=== PATIENT | female | born 1970 | race Caucasian/White ===

== ENCOUNTER 2020-09-01 15:26 | Emergency (ER) | payer MEDICARE, SELFPAY ==
--- NOTE | ~2020-09-01 | CT_ITS ---
EXAMINATION: CT abdomen pelvis wo con DATE: 09/01/2020 16:02 INDICATION: Left flank pain. TECHNIQUE: Computed tomography (CT) of the abdomen and pelvis was performed without intravenous contr ast. Automated exposure control and iterative reconstruction technique were employed. The dose-length product was 961.29 mGy-cm. COMPARISON: None FINDINGS: Tiny right pleural effusion. Heart size is normal. No pericardial effusion. Postoperative change of p rior cholecystectomy, gastric bypass procedure and ventral hernia mesh repair. Liver, spleen, pancrea s, right kidney and bilateral adrenal glands are normal. Couple 1-2 mm left renal stones. No stones i n the right kidney or along the bilateral ureters. No hydronephrosis. No bowel obstruction. Mobile ce cum now positioned to the left of the umbilical region with normal appendix. Bladder is normal. The u terus is not identified and has likely been surgically resected. Stable appearance of multiple phlebo liths in the pelvis. No free intraperitoneal gas or fluid. No pathologically enlarged abdominal or pe lvic lymphadenopathy. Moderate to severe lumbar spondylosis. IMPRESSION: 1. A couple tiny nonobstructing left renal stones. No evident ureteral stones or hydronephrosis. 2. Postoperative changes of prior cholecystectomy, gastric bypass, hysterectomy and ventral hernia me sh repair. 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 A couple tiny nonobstructing left renal stones. No evident ureteral stones o r hydronephrosis. 2. Postoperative changes of prior cholecystectomy, gastric bypass, hysterectomy and ventral hernia mesh repair.
[2020-09-01 15:30] VITALS: BP 128/85; PULSE 73; RESP 20; TEMP 36.4; O2SAT 99
--- NOTE | 2020-09-01 15:36 | ED.ABDPAIN ---
HPI - Abdominal Pain General Chief Complaint: Abdominal Pain Stated Complaint: L flank pain Time Seen by Provider: 09/01/20 15:30 Source: patient Mode of arrival: ambulatory Limitations: no limitations History of Present Illness HPI narrative: A 50-year-old female presents to the emergency department with complaints of left-sided flank pain. Patient states that she thinks she has another kidney stone. She does note a history of kidney stones and states that this feels similar. She does also note a strong smell, dark color and burning when she pees. She denies any fever or chills. Related Data Allergies Allergy/AdvReac Type Severity Reaction Status Date / Time esomeprazole Allergy Unknown Hives Verified 09/01/20 15:35 iodine Allergy Unknown Swelling Verified 09/01/20 15:35 of Lip/Tongue/Throat Contrast Media Allergy Unknown Swelling Uncoded 09/01/20 15:35 of Lip/Tongue/Throat Review of Systems Review of Systems: Narrative: CONSTITUTIONAL: Denies fever, chills, or sweats. EYES: Denies visual changes, redness, or discharge. ENT: Denies rhinorrhea, congestion, sore throat, or otalgia. CARDIOVASCULAR: Denies chest pain, palpitations, or edema. RESPIRATORY: Denies cough or dyspnea. GASTROINTESTINAL: Denies abdominal pain, nausea, vomiting, or diarrhea. GENITOURINARY: Denies dysuria or hematuria. Endorses flank pain. SKIN: Denies rash or itching. MUSCULOSKELETAL: Denies back pain, joint pain, or myalgia. NEUROLOGIC: Denies headache, numbness, dizziness, or weakness. PSYCHIATRIC: Denies anxiety or depression. [facility] Past Medical History Medical History Abnormal uterine bleeding Anxiety Arthritis Bulging disc L5-S1 DDD (degenerative disc disease) Depression Epilepsy Finger fracture Gallbladder disease History of blood transfusion History of tonsillitis Kidney stone Migraine Renal disease Sepsis due to urinary tract infection UTI (urinary tract infection) Ventral hernia With repair Surgical History Surgical History H/O lithotripsy H/O resection of small bowel H/O tubal ligation H/O: hysterectomy History of x4 History of cholecystectomy History of gastric bypass History of urethral stent Rt Hx of tonsillectomy Status post right foot surgery x2 Family History Family History Mother Hypertension Father Family history of chronic obstructive pulmonary disease, Onset Age: 71 Family history of diabetes mellitus in first degree relative Patient's father is Social History Social History Smoking status: Never smoker Alcohol intake: never Exam Narrative: Exam Narrative: GENERAL: Well-appearing, well-nourished, and in no acute distress. HEAD: Normocephalic, atraumatic. EYES: PERRLA and EOMI. ENT: Nares clear, no rhinorrhea or epistaxis. Mucous membranes moist. Oropharynx without tonsillar hypertrophy exudate or other lesions. Bilateral TMs pearly villalobos nonbulging NECK: Supple. No adenopathy or masses. No carotid bruits or JVD CHEST: Clear to auscultation. No respiratory distress. No wheezes rales or rhonchi HEART: Regular rate and rhythm. No murmur heard. Normal peripheral pulses. ABDOMEN: Soft, nontender, nondistended, normal active bowel sounds. Positive left-sided CVA tenderness EXTREMITIES: Normal range of motion. No edema. SKIN: Warm, dry, no rash. NEURO: No focal deficits. Alert and oriented x3. PSYCH: Normal mood and affect. Course Reevaluation(s) Reevaluation #1: Patient sitting in the room. Informed her of her negative CT scan but urine does show blood and possibility of recent stones. We will go ahead and give her another round of pain medicine as she states that the meds she got are not helping. Suspect the patient may be ana paula
[2020-09-01] MEDS: oxyCODONE/ACETAMINOPHEN (*CRX) 5-325 MG TABLET 1 TABLET PO (15:44)
[2020-09-01] MEDS: KETOROLAC 15 MG/ML VIAL (*BKC) IV PUSH (15:56)
[2020-09-01 15:59] LABS: Basophils Percent Auto 0.6 % (0.2-1.2); Eosinophils Absolute Auto 0.3 K/mm3 (0-0.3); Eosinophils Percent Auto 4.2 % (0-4.4); Hematocrit 35.7 % (37.0-47.0); Hemoglobin 11.2 g/dL (12.0-15.0); Immature Granulocyte Absolute 0.01 K/mm3 (0.00-0.031); Immature Granulocyte Percent A 0.2 % (0-0.5); Lymphocytes Absolute Auto 2.24 K/mm3 (0.9-3.2); Lymphocytes Percent Auto 35.2 % (18.3-44.2); Mean Corpuscular HGB Conc 31.4 g/dl (32-36); Mean Corpuscular Hemoglobin 25.5 pg (26-34); Mean Corpuscular Volume 81.3 fl (80-100); Mean Platelet Volume 10.6 fl (7.4-10.4); Monocytes Absolute Auto 0.6 K/mm3 (0.1-0.6); Monocytes Percent Auto 9.1 % (2.6-8.5); Neutrophils Absolute Auto 3.2 K/mm3 (1.3-6.7); Neutrophils Percent Auto 50.7 % (45.5-73.1); Platelet Count Result 248 k/mm3 (150-375); Red Blood Count 4.39 M/mm3 (4.2-5.4); Red Cell Distribution Width 15.3 % (11.5-14.5); White Blood Count 6.4 K/mm3 (4.5-10.0)
[2020-09-01 16:11] LABS: Anion Gap 4 mmol/L (8-16); Blood Urea Nitrogen 15 mg/dL (7-17); Calcium 8.6 mg/dL (8.4-10.2); Carbon Dioxide 25 mmol/L (22-30); Chloride 109 mmol/L (98-107); Estimated CRCL calculation 75 ml/min; Estimated Glomerular Filt Rate > 60; Glucose 72 mg/dL (65-105); Potassium 4.5 mmol/L (3.4-5.0); Sodium 138 mmol/L (137-145)
[2020-09-01 16:24] LABS: Add Urine Microscopic? YES; Appearance Urine Cloudy (Clear); Bacteria Urine Trace /hpf; Bilirubin Urine Negative (Negative); Blood Urine 3+ (Negative); Color Urine Yellow (Yellow); Glucose Urine UA Negative (Negative); Ketones Urine Negative (Negative); Leukocyte Esterase Ur Trace LEU/UL (Negative); Mucus Urine Rare /lpf; Nitrate Urine Negative (Negative); Protein Urine Negative (Negative); RBC Urine >75 /hpf (0-2); Specific Grav Ur 1.015 (1.001-1.035); Squamous Epithelial Cell Urine Few /hpf (Few); Urobilinogen Urine Negative mg/dL (<2.0)
[2020-09-01] MEDS: MORPHINE SULFATE (*CRX) 4 MG/ML INJ IV PUSH (17:31)
== END 2020-09-01 17:45 | disposition home or self-care (01) ==
PROVIDERS: Emergency Medicine; Emergency Provider Emergency Medicine; PCP Internal Medicine
DX: N20.0 Calculus of kidney (principal); Z87.442 Personal history of urinary calculi; G40.909 Epilepsy, unspecified, not intractable, without status epilepticus; Z87.440 Personal history of urinary (tract) infections; N28.9 Disorder of kidney and ureter, unspecified; Z98.84 Bariatric surgery status
CPT/HCPCS: 36415; 74176; 80048; 81001; 85025; 87077; 87086; 87088; 87186; 96374; 96375; 99284; A9270; J1885; J2270

== ENCOUNTER 2020-09-13 15:51 | Emergency (ER) | payer MEDICARE, SELFPAY ==
[2020-09-13 16:26] VITALS: BP 112/69; PULSE 112; RESP 18; TEMP 36.6; O2SAT 97
[2020-09-13 17:41] VITALS: BP 113/73; PULSE 70; RESP 20; TEMP 36.3; O2SAT 99
[2020-09-13 18:32] LABS: Add Urine Microscopic? YES; Appearance Urine Cloudy (Clear); Bacteria Urine 4+ /hpf; Bilirubin Urine Negative (Negative); Blood Urine 2+ (Negative); Color Urine Yellow (Yellow); Glucose Urine UA Negative (Negative); Ketones Urine Negative (Negative); Leukocyte Esterase Ur 2+ LEU/UL (Negative); Mucus Urine Rare /lpf; Nitrate Urine Positive (Negative); Protein Urine 1+ mg/dL (Negative); RBC Urine >75 /hpf (0-2); Specific Grav Ur 1.019 (1.001-1.035); Squamous Epithelial Cell Urine Many /hpf (Few); Urobilinogen Urine Negative mg/dL (<2.0); WBC Urine 31-50 /hpf
--- NOTE | 2020-09-13 18:34 | ED.ABDPAIN ---
HPI - Abdominal Pain General Chief Complaint: Abdominal Pain Stated Complaint: ongoing kidney issues, possible stone Time Seen by Provider: 09/13/20 18:09 Source: patient Mode of arrival: ambulatory Limitations: no limitations History of Present Illness HPI narrative: 50-year-old female History of kidney stones Complains of of a 3 or 4-day history of pain in her left flank and radiating around to her lower abdomen on the left side as well as a dark and malodorous urine No fever, she has nausea but no vomiting and no diarrhea She was here for roughly the same thing about a week and a half ago At that time CT was done and showed a couple of small calculi in the left kidney but nothing in the ureters that are to be symptomatic Urine was abnormal and ultimately grew Klebsiella that was pretty much pansensitive Patient indicates that she took all but 2 or 3 of her antibiotics however it looks like it was only prescribed for 3 days She was supposed to follow-up with urology but due to a series of was family calamities was unable to do so On review it looks like she has had several visits for similar issues over the last few years and none of her CTs have demonstrated a ureteral stone However she does say that she had previously had a number of lithotripsies done by urology here elicited complaint: abdominal pain and flank pain Related Data Allergies Allergy/AdvReac Type Severity Reaction Status Date / Time esomeprazole Allergy Unknown Hives Verified 09/13/20 16:31 iodine Allergy Unknown Swelling Verified 09/13/20 16:31 of Lip/Tongue/Throat ketorolac [From Toradol] Allergy Hives Verified 09/13/20 16:31 Contrast Media Allergy Unknown Swelling Uncoded 09/13/20 16:31 of Lip/Tongue/Throat Review of Systems Review of Systems: All systems reviewed & are unremarkable except as noted in HPI and below Constitutional: Constitutional: Denies chills, Denies fatigue, Denies fever(s), Denies headache(s) and Reports weakness Eyes: Eyes: Reports no additional eye complaints and Denies change in vision ENT: Denies headache(s), Denies epistaxis, Denies nasal congestion and Denies sore throat Cardiovascular: Cardiovascular: Denies chest pain, Denies leg edema, Denies palpitations and Denies dyspnea Respiratory: Respiratory: Denies cough, Denies dyspnea and Denies wheezing Gastrointestinal: Gastrointestinal: Reports abdominal pain, Denies diarrhea, Reports nausea and Denies vomiting Genitourinary: Genitourinary: Denies hematuria, Denies urinary frequency, Reports nocturia, Reports dysuria and Reports flank pain Musculoskeletal: Musculoskeletal: Denies deformity, Denies arthralgias, Denies joint swelling, Denies muscle weakness and Denies numbness Integumentary/Breasts: Skin/Breast: Denies rash and Denies wounds Neurologic: Denies headache(s), Denies focal weakness, Denies numbness and Denies weakness Psychiatric: Psychiatric: Reports no additional psychiatric complaints Endocrine: Endocrine: Denies fatigue and Denies palpitations Hematologic/Lymphatic: Hematologic/Lymphatic: Denies easy bleeding and Denies easy bruising Allergic/Immunologic: Allergic/Immunologic: Denies wheezing PMFSH Past Medical History Medical History Abnormal uterine bleeding Anxiety Arthritis Bulging disc L5-S1 DDD (degenerative disc disease) Depression Epilepsy Finger fracture Gallbladder disease History of blood transfusion History of tonsillitis Kidney stone Migraine Renal disease Sepsis due to urinary tract infection UTI (urinary tract infection) Ventral hernia With repair Surgical History Surgical History H/O lithotripsy H/O resection of small bowel H/O tubal ligation H/O: hysterectomy History of x4 History of cholecystectomy History of gastric bypass History of urethral stent R
[2020-09-13 18:57] LABS: Basophils Absolute Auto 0.1 K/mm3 (0.0-0.1); Basophils Percent Auto 0.7 % (0.2-1.2); Eosinophils Absolute Auto 0.2 K/mm3 (0-0.3); Eosinophils Percent Auto 2.9 % (0-4.4); Hematocrit 37.9 % (37.0-47.0); Hemoglobin 11.7 g/dL (12.0-15.0); Immature Granulocyte Absolute 0.03 K/mm3 (0.00-0.031); Immature Granulocyte Percent A 0.4 % (0-0.5); Lymphocytes Absolute Auto 2.47 K/mm3 (0.9-3.2); Lymphocytes Percent Auto 29.3 % (18.3-44.2); Mean Corpuscular HGB Conc 30.9 g/dl (32-36); Mean Corpuscular Hemoglobin 25.3 pg (26-34); Mean Platelet Volume 10.5 fl (7.4-10.4); Monocytes Absolute Auto 0.7 K/mm3 (0.1-0.6); Monocytes Percent Auto 8.8 % (2.6-8.5); Neutrophils Absolute Auto 4.9 K/mm3 (1.3-6.7); Neutrophils Percent Auto 57.9 % (45.5-73.1); Platelet Count Result 248 k/mm3 (150-375); Red Blood Count 4.62 M/mm3 (4.2-5.4); Red Cell Distribution Width 15.4 % (11.5-14.5); White Blood Count 8.4 K/mm3 (4.5-10.0)
[2020-09-13 19:22] VITALS: BP 112/85; PULSE 70; RESP 16; O2SAT 100
[2020-09-13] MEDS: ONDANSETRON INJ 4 MG/2 ML VIAL IV PUSH (19:30)
[2020-09-13] MEDS: ACETAMINOPHEN 500 MG TABLET 1000 MG PO (19:30)
[2020-09-13] MEDS: DICYCLOMINE HCL INJ 20 MG/2 ML VIAL IM (19:30)
[2020-09-13 19:32] LABS: Alanine Aminotransferase 30 U/L (4-35); Alkaline Phosphatase 103 U/L (38-126); Aspartate Amino Transferase 29 U/L (14-36); Bilirubin,Total 0.3 mg/dL (0.2-1.3); Calcium 8.5 mg/dL (8.4-10.2); Glucose 84 mg/dL (65-105); Lipase 42 U/L (23-300)
[2020-09-13 19:57] LABS: Albumin Level 3.6 g/dL (3.5-5.1); Anion Gap 2 mmol/L (8-16); Blood Urea Nitrogen 13 mg/dL (7-17); Carbon Dioxide 26 mmol/L (22-30); Chloride 108 mmol/L (98-107); Estimated CRCL calculation 66 ml/min; Estimated Glomerular Filt Rate > 60; Potassium 4.6 mmol/L (3.4-5.0); Sodium 136 mmol/L (137-145)
[2020-09-13 20:00] VITALS: TEMP 36.3
[2020-09-13] MEDS: CIPROFLOXACIN 400 MG/D5W 200ML 200 ML 200 MG IVPB (20:27)
[2020-09-13 20:47] VITALS: BP 132/88; PULSE 70; RESP 16; O2SAT 99
--- NOTE | 2020-09-13 21:03 | PC.NURSE ---
Patient placed on bus driver/monitor.
[2020-09-13 22:22] VITALS: BP 115/76; PULSE 67; RESP 12; O2SAT 97
[2020-09-13] MEDS: HYDROcodone/acetaminophen (*CRX) 5-325 MG TABLET 1 TAB PO (23:20)
== END 2020-09-13 23:29 | disposition home or self-care (01) ==
PROVIDERS: Emergency Provider Emergency Medicine; PCP Internal Medicine
DX: N39.0 Urinary tract infection, site not specified (principal); M19.90 Unspecified osteoarthritis, unspecified site; Z87.442 Personal history of urinary calculi; N28.9 Disorder of kidney and ureter, unspecified; G40.909 Epilepsy, unspecified, not intractable, without status epilepticus; Z98.84 Bariatric surgery status
CPT/HCPCS: 36415; 80053; 81001; 83690; 85025; 87077; 87086; 87088; 87186; 96365; 96372; 96375; 99284; A9270; J0500; J0744; J2001; J2405

== ENCOUNTER 2021-07-12 16:54 | Emergency (ER) | payer MEDICARE, SELFPAY ==
--- NOTE | ~2021-07-12 | CT_ITS ---
EXAMINATION: CT abdomen pelvis wo con DATE: 07/12/2021 18:17 INDICATION: Right lower quadrant abdomen pain. Evaluate for appendicitis. TECHNIQUE: Computed tomography (CT) of the abdomen and pelvis was performed without intravenous contr ast. The dose-length product was 1016.29 mGy-cm. Automated exposure control and iterative reconstruct ion technique were employed. COMPARISON: CT dated 09/01/2020. FINDINGS: Lung bases are unremarkable. Heart size normal. No significant vascular abnormality. There are extensive surgical changes of the stomach, and anastomosis of the right mid abdomen, ventral josseline ia repair and cholecystectomy. The appendix is not positively visualized. There is no pericecal infl ammatory change to suggest appendicitis. Nonobstructive bowel gas pattern. There are punctate nonobstructing bilateral renal stones at the lower poles. No definite ureteral sto rome or hydronephrosis. The liver, spleen, pancreas, adrenal glands are unremarkable. Nonobstructive bowel gas pattern. Moder ate lumbar spondylosis. IMPRESSION: 1. Nonobstructing bilateral nephrolithiasis. 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
[2021-07-12 16:58] VITALS: BP 119/91; PULSE 113; RESP 16; TEMP 36.9; O2SAT 95
[2021-07-12 17:19] LABS: Basophils Absolute Auto 0.1 K/mm3 (0.0-0.1); Eosinophils Absolute Auto 0.1 K/mm3 (0-0.3); Hemoglobin 12.1 g/dL (12.0-15.0); Immature Granulocyte Absolute 0.04 K/mm3 (0.00-0.031); Immature Granulocyte Percent A 0.4 % (0-0.5); Lymphocytes Absolute Auto 2.64 K/mm3 (0.9-3.2); Lymphocytes Percent Auto 26.5 % (18.3-44.2); Mean Corpuscular HGB Conc 30.3 g/dl (32-36); Mean Corpuscular Hemoglobin 24.2 pg (26-34); Mean Platelet Volume 9.8 fl (7.4-10.4); Monocytes Absolute Auto 0.8 K/mm3 (0.1-0.6); Monocytes Percent Auto 7.5 % (2.6-8.5); Neutrophils Absolute Auto 6.3 K/mm3 (1.3-6.7); Neutrophils Percent Auto 63.6 % (45.5-73.1); Platelet Count Result 308 k/mm3 (150-375); Red Cell Distribution Width 15.4 % (11.5-14.5)
[2021-07-12 17:24] LABS: Add Urine Microscopic? YES; Appearance Urine Cloudy (Clear); Bilirubin Urine Negative (Negative); Blood Urine Negative (Negative); Color Urine Yellow (Yellow); Glucose Urine UA Negative (Negative); Ketones Urine Negative (Negative); Leukocyte Esterase Ur Negative LEU/UL (Negative); Mucus Urine Few /lpf; Nitrate Urine Negative (Negative); Protein Urine Negative (Negative); RBC Urine 0-2 /hpf (0-2); Specific Grav Ur 1.021 (1.001-1.035); Squamous Epithelial Cell Urine Many /hpf (Few)
[2021-07-12 17:45] LABS: Alanine Aminotransferase 21 U/L (4-35); Albumin Level 3.9 g/dL (3.5-5.1); Alkaline Phosphatase 131 U/L (38-126); Anion Gap 9 mmol/L (8-16); Aspartate Amino Transferase 25 U/L (14-36); Bilirubin,Total 0.4 mg/dL (0.2-1.3); Blood Urea Nitrogen 14 mg/dL (7-17); Calcium 8.7 mg/dL (8.4-10.2); Carbon Dioxide 21 mmol/L (22-30); Chloride 110 mmol/L (98-107); Estimated CRCL calculation 79 ml/min; Estimated Glomerular Filt Rate > 60; Glucose 112 mg/dL (65-110); Potassium 3.9 mmol/L (3.4-5.0); Sodium 140 mmol/L (137-145)
--- NOTE | 2021-07-12 19:12 | PC.NURSE ---
Per previous RN, patient is tough stick and IV access was attempted multiple times by more than one RN. Patient still c/o pain. ERP notified of patient being tough stick and no IV access at this time.ERP went to speak with patient. Report received from BRANDON Varghese. I assumed care of patient at this time.
[2021-07-12] MEDS: MORPHINE SULFATE INJ (*CRX) 10 MG/ML AMP IM (19:18)
[2021-07-12] MEDS: ONDANSETRON HCL ODT 4 MG TABLET PO ×2 (19:18→20:49)
[2021-07-12 19:20] VITALS: BP 122/75; PULSE 82; RESP 17; O2SAT 99
--- NOTE | 2021-07-12 19:36 | ED.FEMALEGU ---
HPI - Female Genitourinary General Chief complaint: Urogenital-Female Stated complaint: dysuria, right flank pain Time Seen by Provider: 07/12/21 17:52 Source: patient History of Present Illness HPI Narrative: Patient presents with right-sided flank pain. Reports a history of multiple ureteral stones pain is usually on the left however this episode is on the right. Reports her pain is similar but slightly different than her prior stones and this pain starts in her right lower quadrant and radiates up into her back. Pain is sharp, constant, no clear aggravating or alleviating factors again radiates to her back. Reports dark-colored urine as well as well as nausea and vomiting. She denies any fevers or diarrhea. Related Data Home Medications Medication Instructions Recorded Confirmed fluoxetine 20 mg tablet 20 mg PO DAILY 11/21/20 11/21/20 hydroxyzine pamoate 50 mg capsule 50 mg PO TID 11/21/20 11/21/20 levetiracetam 1,000 mg tablet 1,000 mg PO Q12H 11/21/20 11/21/20 oxybutynin chloride 5 mg tablet 5 mg PO TID 11/21/20 11/21/20 prazosin 5 mg capsule 5 mg PO QPM 11/21/20 11/21/20 quetiapine 100 mg tablet 100 mg PO BID 11/21/20 11/21/20 tizanidine 4 mg capsule 4 mg PO QHS 11/21/20 11/21/20 trazodone 150 mg tablet 150 mg PO .bedtime PRN tablet 11/21/20 11/21/20 Allergies Allergy/AdvReac Type Severity Reaction Status Date / Time esomeprazole Allergy Unknown Hives Verified 11/21/20 13:39 iodine Allergy Unknown Swelling Verified 11/21/20 13:31 of Lip/Tongue/Throat ketorolac [From Toradol] Allergy Hives Verified 11/21/20 13:39 Contrast Media Allergy Unknown Swelling Uncoded 11/21/20 13:39 of Lip/Tongue/Throat Review of Systems Review of Systems: CONSTITUTIONAL: Denies fever, chills, or sweats. EYES: Denies visual changes, redness, or discharge. ENT: Denies rhinorrhea, congestion, sore throat, or otalgia. CARDIOVASCULAR: Denies chest pain, palpitations, or edema. RESPIRATORY: Denies cough or dyspnea. GASTROINTESTINAL: Reports abdominal pain nausea and vomiting GENITOURINARY: Denies dysuria or hematuria. SKIN: Denies rash or itching. MUSCULOSKELETAL: Denies joint pain, or myalgia. NEUROLOGIC: Denies headache, numbness, dizziness, or weakness. PSYCHIATRIC: Denies anxiety or depression. All systems reviewed & are unremarkable except as noted in HPI and below PMFSH Past Medical History Medical History Abnormal uterine bleeding Anxiety Arthritis Bulging disc L5-S1 DDD (degenerative disc disease) Depression Epilepsy Finger fracture Gallbladder disease History of blood transfusion History of tonsillitis Kidney stone Migraine Renal disease Sepsis due to urinary tract infection UTI (urinary tract infection) Ventral hernia With repair Surgical History Surgical History H/O lithotripsy H/O resection of small bowel H/O tubal ligation H/O: hysterectomy History of x4 History of cholecystectomy History of gastric bypass History of urethral stent Rt Hx of tonsillectomy Status post right foot surgery x2 Family History Family History Mother Hypertension Father Family history of chronic obstructive pulmonary disease, Onset Age: 71 Family history of diabetes mellitus in first degree relative Patient's father is Social History Social History Smoking status: Never smoker Alcohol intake: never Gender identity (if verbalized by the patient): Female Exam Narrative: GENERAL: Well-appearing, well-nourished, and in no acute distress. HEAD: Normocephalic, atraumatic. EYES: PERRLA and EOMI. ENT: Nares clear, no rhinorrhea or epistaxis. Mucous membranes moist. NECK: Supple. No masses. No JVD CHEST: Clear to auscultation. No respiratory dist
[2021-07-12] MEDS: MAG HYDROX/AL HYDROX/SIMETH 30 ML UDC PO (20:50)
[2021-07-12] MEDS: LIDOCAINE HCL 2% VISC SOLN 15 ML UDC 20 ML PO (20:50)
[2021-07-12 20:51] LABS: Lipase 60 U/L (23-300)
== END 2021-07-12 21:18 | disposition home or self-care (01) ==
PROVIDERS: Emergency Provider Emergency Medicine; PCP Internal Medicine
DX: K29.70 Gastritis, unspecified, without bleeding (principal); G40.909 Epilepsy, unspecified, not intractable, without status epilepticus; F32.A Depression, unspecified; F41.9 Anxiety disorder, unspecified; N28.9 Disorder of kidney and ureter, unspecified; M19.90 Unspecified osteoarthritis, unspecified site; Z87.442 Personal history of urinary calculi; Z87.440 Personal history of urinary (tract) infections; Z98.84 Bariatric surgery status; N20.0 Calculus of kidney
CPT/HCPCS: 36415; 74176; 80053; 81001; 83690; 85025; 96372; 99284; A9270; J2270

== ENCOUNTER 2022-03-22 09:27 | Emergency (ER) | payer MEDICARE, SELFPAY ==
--- NOTE | ~2022-03-22 | US_ITS ---
EXAMINATION: US pelvic complete w TV DATE: 03/22/2022 15:19 INDICATION: LLQ, L lower back pain, CT negative TECHNIQUE: Multiple transabdominal and endovaginal sonographic images of the pelvis were obtained. COMPARISON: CT abdomen and pelvis, same date. FINDINGS: Exam limited by bowel gas. Uterus: Status post hysterectomy. Right Ovary: Not visualized. Left Ovary: 2 x 0.8 x 0.6 cm. Vascular flow is present. There is no free fluid in the pelvis. IMPRESSION: Limited examination. Right ovary not visualized. Sonographically normal left ovary. Reviewed, dictated and finalized at location K. IMPRESSION: Limited examination. Right ovary not visualized. Sonographically normal left ov loree.
--- NOTE | ~2022-03-22 | CT_ITS ---
EXAMINATION: CT abdomen pelvis wo con DATE: 03/22/2022 11:06 INDICATION: Left flank pain, hematuria. History kidney stones TECHNIQUE: Computed tomography (CT) of the abdomen and pelvis was performed without intravenous contr ast. Automated exposure control and iterative reconstruction technique were employed. Exam dose: 677 .57 mGy-cm total exam DLP. COMPARISON: 07/12/2021 CT abdomen pelvis FINDINGS: The lung bases are clear of infiltrate or consolidation. Normal heart size. No pericardial or pleural effusion. Status post cholecystectomy. Status post gastric bypass surgery. No hepatic, splenic, pancreatic, and adrenal or renal space-occupying mass lesion is detected. There is a pinpoint nonobstructing calculus of the lower pole of each kidney. No ureteral calculus or hydroureteronephrosis. The urinary bladder is largely evacuated and not optimally evaluated. Status post hysterectomy. There is normal caliber and mild atherosclerotic calcification of the abdominal aorta. No intraperito lety or retroperitoneal or pelvic mass lesion or adenopathy or ascites is detected. Normal appendix. No bowel obstruction or intraperitoneal free air. Status post ventral abdominal wall hernia repair. Moderately severe degenerative disc disease L3-4 and L4-5, moderate degenerative disease at L5-S1. No suspicious osteolytic or osteoblastic lesions are noted. IMPRESSION: Pinpoint obstructing lower pole calculus of each kidney No ureteral calculus or hydroure teronephrosis is detected Status post cholecystectomy Status post gastric bypass surgery Status post hysterectomy Status post ventral abdominal wall hernia repair Reviewed, dictated and finalized at Location [facility]. 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 IMPRESSION: Pinpoint obstructing lower pole calculus of each kidney No uretera l calculus or hydroureteronephrosis is detected Status post cholecystectomy Status post gastric bypass surgery Status post hysterectomy Status post ventral abdominal wall hernia repair
[2022-03-22 09:29] VITALS: BP 185/104; PULSE 111; RESP 14; TEMP 36.8; O2SAT 99
[2022-03-22 10:33] LABS: Basophils Absolute Auto 0.1 K/mm3 (0.0-0.1); Basophils Percent Auto 0.8 % (0.2-1.2); Eosinophils Absolute Auto 0.1 K/mm3 (0-0.3); Eosinophils Percent Auto 0.6 % (0-4.4); Hematocrit 39.7 % (37.0-47.0); Hemoglobin 11.8 g/dL (12.0-15.0); Immature Granulocyte Absolute 0.04 K/mm3 (0.00-0.031); Immature Granulocyte Percent A 0.4 % (0-0.5); Mean Corpuscular HGB Conc 29.7 g/dl (32-36); Mean Corpuscular Hemoglobin 22.3 pg (26-34); Mean Platelet Volume 9.7 fl (7.4-10.4); Monocytes Percent Auto 9.6 % (2.6-8.5); Neutrophils Absolute Auto 5.9 K/mm3 (1.3-6.7); Neutrophils Percent Auto 55.6 % (45.5-73.1); Platelet Count Result 355 k/mm3 (150-375); Red Blood Count 5.29 M/mm3 (4.2-5.4); White Blood Count 10.6 K/mm3 (4.5-10.0)
--- NOTE | 2022-03-22 10:36 | ED.BACK ---
HPI - Back Pain/Injury General Chief Complaint: Back Pain/Injury Stated Complaint: kidney stone Time Seen by Provider: 03/22/22 10:11 Source: patient Mode of arrival: ambulatory Limitations: no limitations History of Present Illness HPI Narrative: Patient is a 51-year-old female who presents to the ED with report of left flank pain. Patient reports having intermittent pain in her left flank region for the past 2 weeks. She has a long history of kidney stones and several lithotripsies in the past. States pain feels similar. This morning around 2 AM, pain woke her from her sleep. Constant in left flank region and began radiating around to left lower abdomen. Also reports nausea, vomiting, oliguria. No dysuria or hematuria. No fever. No diarrhea, constipation. Patient took Aleve around 230 am this morning. Related Data Home Medications Medication Instructions Recorded Confirmed fluoxetine 20 mg tablet 20 mg PO DAILY 11/21/20 11/21/20 hydroxyzine pamoate 50 mg capsule 50 mg PO TID 11/21/20 11/21/20 levetiracetam 1,000 mg tablet 1,000 mg PO Q12H 11/21/20 11/21/20 oxybutynin chloride 5 mg tablet 5 mg PO TID 11/21/20 11/21/20 prazosin 5 mg capsule 5 mg PO QPM 11/21/20 11/21/20 quetiapine 100 mg tablet 100 mg PO BID 11/21/20 11/21/20 tizanidine 4 mg capsule 4 mg PO QHS 11/21/20 11/21/20 trazodone 150 mg tablet 150 mg PO .bedtime PRN 11/21/20 11/21/20 Allergies Allergy/AdvReac Type Severity Reaction Status Date / Time esomeprazole Allergy Unknown Hives Verified 11/21/20 13:39 iodine Allergy Unknown Swelling Verified 11/21/20 13:31 of Lip/Tongue/Throat ketorolac [From Toradol] Allergy Hives Verified 11/21/20 13:39 Contrast Media Allergy Unknown Swelling Uncoded 11/21/20 13:39 of Lip/Tongue/Throat Review of Systems Review of Systems: CONSTITUTIONAL: Denies fever, chills, or sweats. CARDIOVASCULAR: Denies chest pain. RESPIRATORY: Denies dyspnea. GASTROINTESTINAL: Reports LLQ pain, N/V. Denies constipation or diarrhea. GENITOURINARY: Reports oliguria. Denies dysuria or hematuria. MUSCULOSKELETAL: Reports L flank pain. All systems reviewed & are unremarkable except as noted in HPI and below PMFSH Past Medical History Medical History Abnormal uterine bleeding Anxiety Arthritis Bulging disc L5-S1 DDD (degenerative disc disease) Depression Epilepsy Finger fracture Gallbladder disease History of blood transfusion History of tonsillitis Kidney stone Migraine Renal disease Sepsis due to urinary tract infection UTI (urinary tract infection) Ventral hernia With repair Surgical History Surgical History H/O lithotripsy H/O resection of small bowel H/O tubal ligation H/O: hysterectomy History of x4 History of cholecystectomy History of gastric bypass History of urethral stent Rt Hx of tonsillectomy Status post right foot surgery x2 Family History Family History Mother Hypertension Father Family history of chronic obstructive pulmonary disease, Onset Age: 71 Family history of diabetes mellitus in first degree relative Patient's father is Social History Social History Smoking status: Never smoker Alcohol intake: never Gender identity (if verbalized by the patient): Female Exam Narrative: GENERAL: Well appearing, obese, non-toxic, in mild acute distress. HEAD: Normocephalic, atraumatic. NECK: Supple. No adenopathy, no masses. RESPIRATORY: Airway patent, respirations nonlabored. Clear to auscultation bilaterally, no rales, rhonchi, wheezing. CARDIOVASCULAR: Tachycardic with regular rhythm without murmurs, rubs, or gallops. Peripheral pulses 2+ and equal bilaterally. ABDOMINAL: Soft, mild left-sided abdominal tenderness to palpati
[2022-03-22 10:38] LABS: Appearance Urine Clear (Clear); Bilirubin Urine 1+ (Negative); Blood Urine Negative (Negative); Color Urine Yellow (Yellow); Glucose Urine UA Negative (Negative); Ketones Urine Trace mg/dL (Negative); Leukocyte Esterase Ur Negative LEU/UL (Negative); Nitrate Urine Negative (Negative); Protein Urine Negative (Negative); Specific Grav Ur 1.025 (1.001-1.035)
[2022-03-22] MEDS: SODIUM CHLORIDE 0.9% IV 1,000 ML 999 ML IV CONT (10:42)
[2022-03-22] MEDS: MORPHINE SULFATE (*CRX) 4 MG/ML INJ IV PUSH (10:42)
[2022-03-22] MEDS: ONDANSETRON INJ 4 MG/2 ML VIAL IV PUSH (10:43)
[2022-03-22 10:44] LABS: Platelet Estimate Adequate (Adequate)
[2022-03-22 10:45] LABS: Alanine Aminotransferase 18 U/L (6-35); Albumin Level 4.4 g/dL (3.5-5.1); Alkaline Phosphatase 139 U/L (38-126); Anion Gap 11 mmol/L (8-16); Anisocytosis 1+ (NORMAL); Aspartate Amino Transferase 29 U/L (14-36); Bilirubin,Total 0.7 mg/dL (0.2-1.3); Blood Urea Nitrogen 9 mg/dL (7-17); Calcium 9.4 mg/dL (8.4-10.2); Carbon Dioxide 21 mmol/L (22-30); Chloride 107 mmol/L (98-107); Estimated CRCL calculation 86 ml/min; Estimated Glomerular Filt Rate > 60; Glucose 106 mg/dL (65-110); Lipase 82 U/L (23-300); Ovalocytes 1+ (NORMAL); Poikilocytosis 1+ (NORMAL); Potassium 4.2 mmol/L (3.4-5.0); Sodium 139 mmol/L (137-145)
[2022-03-22 10:47] LABS: Add Urine Microscopic? YES; Mucus Urine Rare /lpf; RBC Urine 0-2 /hpf (0-2); Squamous Epithelial Cell Urine Moderate /hpf (Few); WBC Urine 0-3 /hpf
[2022-03-22] MEDS: diphenhydrAMINE HCl INJ 50 MG/ML VIAL 25 MG IV PUSH (10:51)
[2022-03-22] MEDS: HYDROmorphone HCL INJ (*CRX) 1 MG/ML SYR 0.5 MG IV PUSH (13:07)
[2022-03-22 13:53] VITALS: BP 170/114; PULSE 80; RESP 16; O2SAT 100
[2022-03-22] MEDS: LORazepam INJ (*CRX) 2 MG/ML VIAL 0.5 MG IV PUSH (16:20)
[2022-03-22] MEDS: HYDROcodone/acetaminophen (*CRX) 5-325 MG TABLET 1 TAB PO (17:11)
== END 2022-03-22 17:15 | disposition home or self-care (01) ==
PROVIDERS: Physician Assistant; Emergency Provider Emergency Medicine; PCP Internal Medicine
DX: R10.32 Left lower quadrant pain (principal); G40.909 Epilepsy, unspecified, not intractable, without status epilepticus; N28.9 Disorder of kidney and ureter, unspecified; Z87.442 Personal history of urinary calculi; F41.9 Anxiety disorder, unspecified; F32.A Depression, unspecified; Z87.440 Personal history of urinary (tract) infections; Z98.84 Bariatric surgery status; Z90.710 Acquired absence of both cervix and uterus; N20.0 Calculus of kidney
CPT/HCPCS: 36415; 74176; 76830; 76856; 80053; 81001; 83690; 85025; 96361; 96374; 96375; 99284; A9270; J0131; J1170; J1200; J2060; J2270; J2405; J7030

== ENCOUNTER 2022-07-12 11:10 | Inpatient (IN) | payer MEDICARE, SELFPAY ==
--- NOTE | ~2022-07-12 | CT_ITS ---
EXAMINATION: CT abdomen pelvis wo con DATE: 07/14/2022 13:55 INDICATION: Periumbilical abdominal pain TECHNIQUE: Computed tomography (CT) of the abdomen and pelvis was performed without intravenous contr ast. Automated exposure control and iterative reconstruction technique were employed. Exam dose: 638 .80 mGy-cm total exam DLP. COMPARISON: 07/12/2022 CT abdomen pelvis FINDINGS: The lung bases are clear. Normal heart size. No pericardial or pleural effusion. Status post cholecystectomy. No bile duct or pancreatic duct dilatation. No hepatic, splenic, pancreatic, adrenal or renal space-occupying mass lesion. Minimal bilateral punc pacheco nonobstructive nephrolithiasis. No ureteral calculus or hydroureteronephrosis. The urinary bladd er is evacuated. Status post hysterectomy. Postoperative change of the stomach. There is a jejunostomy anastomosis in the left lower quadrant. P roximal to the jejunal anastomosis the jejunum measures up to 3.9 cm diameter, with fluid level, sugg esting partial obstruction or adynamic ileus. There is diminished distention of the small bowel in the right upper and mid abdomen and diminished t wisting and density of the mesentery since 07/12/2022, suggesting improvement of internal hernia or c losed loop obstruction.. Small bowel series may be of benefit for further evaluation as clinically appropriate. Status post ventral abdominal wall hernia repair. Multilevel degenerative disc disease involving particularly L3-4, L4-5, L5-S1. Status post lumbar almanza inectomy. No suspicious osteolytic or osteoblastic lesions are noted. IMPRESSION: Diminished twisting and diminished density in the mesentery suggesting improvement of in ternal hernia and/or closed loop obstruction since 07/12/2022 3.9 cm diameter of the jejunum proximal to the jejunal anastomosis, with fluid level; this may be due to adynamic ileus or partial small bowel obstruction. Consider small bowel series for further evaluation as clinically appropriate Reviewed, dictated and finalized at [facility]. Reviewed, dictated and finalized at [facility]. ORMANCE IMPROVEMENT CONSULTANT IMPRESSION: Diminished twisting and diminished density in the mesentery sugges ting improvement of internal hernia and/or closed loop obstruction since 2021 3.9 cm diameter of the jejunum proximal to the jejunal anastomosis, with fluid level; this may be due to adynamic ileus or partial small bowel obstruction. Consider small bowel series for further evaluation as clinically appropriate
--- NOTE | ~2022-07-12 | CT_ITS ---
EXAMINATION: CT abdomen pelvis wo con DATE: 07/12/2022 13:21 INDICATION: Mid abdominal pain. History of bowel obstruction. TECHNIQUE: Computed tomography (CT) of the abdomen and pelvis was performed without intravenous contr ast. Automated exposure control and iterative reconstruction technique were employed. Exam dose: 843 .70 mGy-cm total exam DLP. COMPARISON: 03/22/2022 CT abdomen pelvis FINDINGS: The lung bases are clear. Normal heart size. No pericardial or pleural effusion. Status post cholecystectomy. No bile duct or pancreatic duct dilatation. No hepatic, splenic, pancrea tic or adrenal space-occupying mass lesion. Subtle nonobstructing pinpoint lower pole left renal calculus. 2 or 3 subtle pinpoint nonobstructing right renal calculi. No ureteral calculus or hydroureteronephrosis. Normal caliber of the abdominal aorta. No intraperitoneal or retroperitoneal or pelvic mass lesion or adenopathy or ascites. Status post gastric bypass surgery. Since 03/22/2022 there is some twisting and increased density of the mesentery with small bowel measuri ng up to 2.9 cm diameter, raising concern for closed loop small bowel obstruction. Surgical consult i s recommended. Small amount of fecal material and gas in the colon. No intraperitoneal free air or portal venous gas is noted. Normal caliber of the abdominal aorta. No intraperitoneal or retroperitoneal or pelvic mass lesion or adenopathy or ascites is noted. Prominent degenerative disc disease at L3-4, L4-5 and L5-S1. No suspicious osteolytic or osteoblastic lesions are noted. IMPRESSION: Twisting increased density of the mesentery and dilated small bowel up to 2.9 cm, sugges ting possible closed-loop small bowel obstruction; surgical consult is recommended. Minimal punctate bilateral nonobstructive nephrolithiasis Status post cholecystectomy Status post gastric bypass surgery Status post hysterectomy Status post ventral abdominal wall hernia repair Reviewed, dictated and finalized at [facility]. 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 IER WRAPPER IMPRESSION: Twisting increased density of the mesentery and dilated small elizabet l up to 2.9 cm, suggesting possible closed-loop small bowel obstruction; surgic al consult is recommended. Minimal punctate bilateral nonobstructive nephrolithiasis Status post cholecystectomy Status post gastric bypass surgery Status post hysterectomy Status post ventral abdominal wall hernia repair
--- NOTE | ~2022-07-12 | XR_ITS ---
SMALL BOWEL SERIES ONLY INDICATION: Abdomen pain. Small bowel obstruction. TECHNIQUE: Serial plain films and fluoroscopic spot films are performed following oral demonstration of water-soluble contrast. 8 images. 0.6 minutes of fluoroscopy. COMPARISON: None FINDINGS: Contrast was followed sequentially through the small bowel. The mucosal pattern is unremar kable. No evidence for stricture, polyp, diverticula or obstruction of flow of contrast. Transit ti me is less than 30 minutes. There are surgical changes consistent with previous ventral hernia repair . IMPRESSION: 1: Unremarkable small bowel series. No evidence for obstruction. 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 AL INSURANCE ADMINISTRATOR
[2022-07-12 11:39] VITALS: BP 160/73; PULSE 74; RESP 20; TEMP 36.8; O2SAT 99
[2022-07-12 12:41] LABS: Appearance Urine Clear (Clear); Bilirubin Urine 1+ (Negative); Blood Urine Negative (Negative); Color Urine Yellow (Yellow); Glucose Urine UA Negative (Negative); Ketones Urine Negative (Negative); Leukocyte Esterase Ur Negative LEU/UL (Negative); Nitrate Urine Negative (Negative); Protein Urine Negative (Negative); Specific Grav Ur >= 1.030 (1.001-1.035); pH Urine 5.5 (5.0-9.0)
[2022-07-12 12:50] LABS: Bacteria Urine Trace /hpf; Mucus Urine Rare /lpf; RBC Urine 0-2 /hpf (0-2); Squamous Epithelial Cell Urine Moderate /hpf (Few); WBC Urine 0-3 /hpf
[2022-07-12 12:55] LABS: Add Urine Microscopic? YES
--- NOTE | 2022-07-12 13:09 | ED.ABDPAIN ---
HPI - Abdominal Pain General Chief Complaint: Abdominal Pain <Tyra Peterson MD - Last Filed: 07/12/22 21:56> Stated Complaint: abd pain <Tyra Peterson MD - Last Filed: 07/12/22 21:56> Time Seen by Provider: 07/12/22 12:03 <Tyra Peterson MD - Last Filed: 07/12/22 21:56> Source: patient and RN notes reviewed <Tyra Peterson MD - Last Filed: 07/12/22 21:56> Mode of arrival: ambulatory <Tyra Peterson MD - Last Filed: 07/12/22 21:56> Limitations: no limitations <Tyra Peterson MD - Last Filed: 07/12/22 21:56> History of Present Illness HPI narrative: This is a 52 year old female with history of bowel obstructions who presents for evaluation of periumbilical abdominal pain. Patient states has been having pain since . She states her pain is constant and she describes it as dull ache. She reports associated nausea but she denies vomiting, diarrhea. She denies fever or chills. She states this pain feels similar to her bowel obstruction, and her last bowel obstruction was in February. She states she had surgery at [facility] at that time. She also reports history of gastric bypass that was done 11 years ago in [place]. She took hydrocodone and tylenol for her pain, and she reports her pain improved. She still rates her pain as 9/10 right now. <Tyra Peterson MD - Last Filed: 07/12/22 21:56> Related Data Home Medications: Home Medications Medication Instructions Recorded Confirmed fluoxetine 20 mg tablet 20 mg PO DAILY 11/21/20 11/21/20 hydroxyzine pamoate 50 mg capsule 50 mg PO TID 11/21/20 11/21/20 levetiracetam 1,000 mg tablet 1,000 mg PO Q12H 11/21/20 11/21/20 oxybutynin chloride 5 mg tablet 5 mg PO TID 11/21/20 11/21/20 prazosin 5 mg capsule 5 mg PO QPM 11/21/20 11/21/20 quetiapine 100 mg tablet 100 mg PO BID 11/21/20 11/21/20 tizanidine 4 mg capsule 4 mg PO QHS 11/21/20 11/21/20 trazodone 150 mg tablet 150 mg PO .bedtime PRN 11/21/20 11/21/20 <Tyra Peterson MD - Last Filed: 07/12/22 21:56> Allergies/Adverse Reactions: Allergies Allergy/AdvReac Type Severity Reaction Status Date / Time esomeprazole Allergy Unknown Hives Verified 07/12/22 12:37 iodine Allergy Unknown Swelling Verified 07/12/22 12:37 of Lip/Tongue/Throat ketorolac [From Toradol] Allergy Hives Verified 07/12/22 12:37 Contrast Media Allergy Unknown Swelling Uncoded 07/12/22 12:37 of Lip/Tongue/Throat <Tyra Peterson MD - Last Filed: 07/12/22 21:56> Review of Systems Review of Systems: All systems reviewed & are unremarkable except as noted in HPI and below <Tyra Peterson MD - Last Filed: 07/12/22 21:56> Constitutional: Constitutional: Denies chills, Denies fatigue and Denies fever(s) <Tyra Peterson MD - Last Filed: 07/12/22 21:56> Gastrointestinal: Gastrointestinal: Reports abdominal pain, Denies diarrhea, Reports nausea and Denies vomiting <Tyra Peterson MD - Last Filed: 07/12/22 21:56> Genitourinary: Genitourinary: Denies dysuria, Denies pelvic pain and Denies flank pain <Tyra Peterson MD - Last Filed: 07/12/22 21:56> ON LICENSE OF [facility] Past Medical History Medical History: Medical History Abnormal uterine bleeding Anxiety Arthritis Bulging disc L5-S1 DDD (degenerative disc disease) Depression Epilepsy Finger fracture Gallbladder disease History of blood transfusion History of tonsillitis Kidney stone Migraine Renal disease Sepsis due to urinary tract infection UTI (urinary tract infection) Ventral hernia With repair <Tyra Peterson MD - Last Filed: 07/12/22 21:56> Surgical History Surgical History: Surgical History H/O lithotripsy H/O resection of small bowel H/O tubal ligation H/O: hysterectomy History of x4 History of cholecystectomy History of gastric bypass History of uret
[2022-07-12] MEDS: ONDANSETRON INJ 4 MG/2 ML VIAL IV PUSH (13:48)
[2022-07-12] MEDS: HYDROmorphone HCL INJ (*CRX) 1 MG/ML SYR IV PUSH (13:48)
[2022-07-12] MEDS: SODIUM CHLORIDE 0.9% IV 1,000 ML 999 ML IV CONT (13:50)
[2022-07-12 13:55] LABS: Basophils Absolute Auto 0.1 K/mm3 (0.0-0.1); Basophils Percent Auto 0.7 % (0.2-1.2); Eosinophils Absolute Auto 0.1 K/mm3 (0-0.3); Hematocrit 35.5 % (37.0-47.0); Hemoglobin 10.5 g/dL (12.0-15.0); Immature Granulocyte Absolute 0.03 K/mm3 (0.00-0.031); Immature Granulocyte Percent A 0.4 % (0-0.5); Lymphocytes Absolute Auto 1.54 K/mm3 (0.9-3.2); Lymphocytes Percent Auto 21.2 % (18.3-44.2); Mean Corpuscular HGB Conc 29.6 g/dl (32-36); Mean Corpuscular Hemoglobin 22.3 pg (26-34); Mean Corpuscular Volume 75.4 fl (80-100); Mean Platelet Volume 9.9 fl (7.4-10.4); Monocytes Absolute Auto 0.6 K/mm3 (0.1-0.6); Monocytes Percent Auto 8.2 % (2.6-8.5); Neutrophils Percent Auto 68.5 % (45.5-73.1); Platelet Count Result 305 k/mm3 (150-375); Red Blood Count 4.71 M/mm3 (4.2-5.4); Red Cell Distribution Width 16.7 % (11.5-14.5); White Blood Count 7.3 K/mm3 (4.5-10.0)
[2022-07-12 14:04] LABS: Alanine Aminotransferase 39 U/L (6-35); Albumin Level 4.2 g/dL (3.5-5.1); Alkaline Phosphatase 140 U/L (38-126); Anion Gap 7 mmol/L (8-16); Aspartate Amino Transferase 54 U/L (14-36); Bilirubin,Total 0.4 mg/dL (0.2-1.3); Blood Urea Nitrogen 14 mg/dL (7-17); Calcium 8.7 mg/dL (8.4-10.2); Carbon Dioxide 27 mmol/L (22-30); Chloride 103 mmol/L (98-107); Estimated CRCL calculation 83 ml/min; Estimated Glomerular Filt Rate > 60; Glucose 82 mg/dL (65-110); Lipase 42 U/L (23-300); Potassium 4.7 mmol/L (3.4-5.0); Sodium 137 mmol/L (137-145)
[2022-07-12 14:23] LABS: Hypochromasia 2+ (NORMAL); Platelet Estimate Adequate (Adequate); Poikilocytosis 1+ (NORMAL)
[2022-07-12 14:24] LABS: Anisocytosis 1+ (NORMAL); Schistocytes None Seen (NORMAL)
[2022-07-12 14:42] VITALS: BP 139/98; PULSE 77; RESP 18; O2SAT 98
--- NOTE | 2022-07-12 14:53 | PM.CNGS ---
Assessment and Plan Assessment and plan (1) Small bowel obstruction: Code(s): K56.609 - Unspecified intestinal obstruction, unspecified as to partial versus complete obstruction Status: Acute Assessment and Plan: pt c extensive surgical history including recent ex lap in March for similar issues, long d/w pt and she wishes to be transferred to where most of her surgeries have been performed, also she follows bariatric surgeon there, d/w ED and they will try to facilitate transfer History of Present Illness Consult details Consult date: 07/12/22 Reason for consult: abdominal pain Requesting physician: Tyra Peterson MD Narrative: The pt is a 52 y/o F c complicated surgical history including previous gastric bypass, multiple abd hernia repairs, ex lap and SBR for SBO (last 04/06 at OSH) presenting c increasing lower abd pain, cramping since . Pt reports she last had normal BM on Wednesday. Pt does have flatus. Pt reports nausea, bloating. Pt reports this is similar to previous obstructive episodes. Workup, including imaging, significant for likely recurrent SBO. Review of Systems Constitutional: Constitutional: Reports as per HPI, Reports anorexia, Denies chills, Reports fatigue, Reports lethargy, Reports malaise, Reports poor appetite, Denies stops breathing during sleep, Reports weakness, Denies weight gain and Denies weight loss Eyes: Eyes: Reports no additional eye complaints ENT: Reports system reviewed and no additional complaints, except as documented Cardiovascular: Cardiovascular: Reports no additional cardiovascular complaints Respiratory: Respiratory: Reports no additional respiratory complaints Gastrointestinal: Gastrointestinal: Reports as per HPI, Reports abdominal pain, Reports bloating, Reports constipation, Reports GI cramping, Reports early satiety, Denies loose stools, Reports nausea, Denies vomiting and Denies hematemesis Genitourinary: Genitourinary: Reports no additional female genitourinary complaints Musculoskeletal: Musculoskeletal: Reports no additional musculoskeletal complaints Integumentary/Breasts: Skin/Breast: Reports system reviewed and no additional complaints, except as docu Neurologic: Reports system reviewed and no additional complaints, except as documented Psychiatric: Psychiatric: Reports no additional psychiatric complaints Endocrine: Endocrine: Reports no additional endocrine complaints Hematologic/Lymphatic: Hematologic/Lymphatic: Reports no additional hematologic/lymphatic complaints Allergic/Immunologic: Allergic/Immunologic: Reports no additional allergic/immunologic complaints PMFSH Past Medical History Medical History Abnormal uterine bleeding Anxiety Arthritis Bulging disc L5-S1 DDD (degenerative disc disease) Depression Epilepsy Finger fracture Gallbladder disease History of blood transfusion History of tonsillitis Kidney stone Migraine Renal disease Sepsis due to urinary tract infection UTI (urinary tract infection) Ventral hernia With repair Surgical History Surgical History H/O lithotripsy H/O resection of small bowel H/O tubal ligation H/O: hysterectomy History of x4 History of cholecystectomy History of gastric bypass History of urethral stent Rt Hx of tonsillectomy Status post right foot surgery x2 Family History Family History Mother Hypertension Father Family history of chronic obstructive pulmonary disease, Onset Age: 71 Family history of diabetes mellitus in first degree relative Patient's father is Social History Social History Smoking status: Never smoker Alcohol intake: never Gender identity (if verbalized by the patient): Female Meds Home Medica
[2022-07-12 15:00] LABS: Lactic Acid Reflex 0.7 mmol/L (0.7-2.0)
[2022-07-12 15:16] VITALS: BP 139/80; PULSE 76; RESP 18; O2SAT 99
[2022-07-12] MEDS: HYDROmorphone HCL INJ (*CRX) 1 MG/ML SYR 0.5 MG IV PUSH ×2 (16:09→20:59)
[2022-07-12] MEDS: SODIUM CHLORIDE 0.9% IV 1,000 ML 150 ML IV CONT (16:10)
[2022-07-12] MEDS: HYDROcodone/acetaminophen (*CRX) 7.5-325 MG TABLET 1 TAB PO (18:16)
[2022-07-12 18:19] VITALS: BP 136/83; PULSE 85; RESP 18; O2SAT 99
[2022-07-12 19:45] VITALS: BP 159/83; PULSE 78; RESP 14; TEMP 36.9; O2SAT 98
--- NOTE | 2022-07-12 20:00 | PC.NURSE ---
pt. removed all monitoring devices.
--- NOTE | 2022-07-12 20:28 | PC.NURSE ---
PT. repeatedly asking for pain medication. pt. educated that ERP has only prescribed pt. pain medication every four hours. pt. states when can I get out of this terrible hospital. My doctor knows i'm not drug seeking and is willing to actually treat my pain. RN educated pt. that no one is accusing pt. of drug seeking and that the doctor ordered pain medication every four hours to keep the pt. safe. pt. tearful and states I can just suffer at home. RN asked pt. if she is wanting to sign out ama pt. states I don't know.
--- NOTE | 2022-07-12 20:50 | PC.NURSE ---
Spoke to [facility] Transfer Line, patient still on waitlist. No bed available, they do not expect one tonight. Will call when a bed opens up.
--- NOTE | 2022-07-13 01:08 | PC.NURSE ---
[facility] CALLED with bed update. Per Ladi, there are NO beds available. [facility] is at capacity.
[2022-07-13] MEDS: HYDROmorphone HCL INJ (*CRX) 1 MG/ML SYR 0.5 MG IV PUSH ×6 (01:25→22:41)
--- NOTE | 2022-07-13 01:32 | PC.NURSE ---
pt. repeatedly using call light to request nurse. RN in multiple times asking RN for more pain medication. pt. states I have been sitting hear crying embarrassed to even ask for pain medication, but i clearly need it. pt. repeatedly rasing voice at RN stating don't you have any compassion. I could go home and be this miserable w/ how much you are denying me. RN offered pt. to sign out AMA, pt. said no I will just sit here and be miserable.
--- NOTE | 2022-07-13 03:18 | PC.NURSE ---
assumed care of pt at this time.
[2022-07-13 03:58] VITALS: BP 161/91; PULSE 82; O2SAT 99
[2022-07-13] MEDS: ONDANSETRON INJ 4 MG/2 ML VIAL IV PUSH (05:52)
[2022-07-13 06:11] VITALS: BP 175/105; PULSE 89; RESP 18; O2SAT 96
[2022-07-13 08:44] VITALS: BP 158/100; PULSE 82; RESP 18; O2SAT 99
[2022-07-13] MEDS: ACETAMINOPHEN 500 MG TABLET 1000 MG PO (08:59)
--- NOTE | 2022-07-13 10:06 | PC.NURSE ---
1004 pt continues to be on bed wait list at [facility]
--- NOTE | 2022-07-13 11:52 | PC.NURSE ---
pt placed in a hospital bed at this time.
[2022-07-13 14:23] VITALS: BP 152/97; PULSE 104; RESP 18; O2SAT 99
[2022-07-13] MEDS: levETIRAcetam 1000MG/NACL100ML 1,000 MG/100 ML BAG 400 MG IVPB (15:21)
--- NOTE | 2022-07-13 18:22 | PC.NURSE ---
pt remains on waiting list at [facility]
[2022-07-13 18:51] VITALS: BP 155/86; PULSE 88; RESP 18; TEMP 37.1; O2SAT 98
--- NOTE | 2022-07-13 19:14 | PC.NURSE ---
Assumed care of pt at this time. Pt given hygiene supplies.
[2022-07-13 22:44] VITALS: BP 151/98; PULSE 90; RESP 18; O2SAT 99
--- NOTE | 2022-07-13 23:22 | PC.NURSE ---
Report given to Lisbeth TAYLOR
--- NOTE | 2022-07-14 02:41 | PC.NURSE ---
Nurse from [facility] called and reported no beds available and pt still on wait list, ERP notified
[2022-07-14 02:49] VITALS: BP 152/86; PULSE 82; RESP 16; TEMP 36.8; O2SAT 100
[2022-07-14] MEDS: HYDROmorphone HCL INJ (*CRX) 1 MG/ML SYR 0.5 MG IV PUSH ×5 (02:49→17:32)
[2022-07-14 09:02] VITALS: BP 160/117; PULSE 111; O2SAT 98
[2022-07-14 11:17] LABS: Influenza A QL RT-PCR Negative (Negative); Influenza B QL RT-PCR Negative (Negative); SARS-CoV-2 RNA PCR Negative
--- NOTE | 2022-07-14 13:30 | PM.PNGS ---
Progress Note: A&P Assessment and Plan (1) Small bowel obstruction: Code(s): K56.609 - Unspecified intestinal obstruction, unspecified as to partial versus complete obstruction Status: Acute Assessment and Plan: Her initial CT scan 2 days ago showed evidence suggesting a possible closed loop small bowel obstruction. She has been NPO and receiving IV Dilaudid in the ER for pain waiting for bed placement at [facility]. She has had multiple previous major abdominal surgeries at [facility] including gastric bypass and recent exploratory laparotomy with small bowel resection in March for a small bowel obstruction. She has also had multiple previous ventral hernia repairs with at least three repairs at [facility] between [id number]. That being said, proceeding with exploratory surgery for this patient would likely be very technically difficult and extremely high risk given her extensive surgical history. She is still having a significant amount of abdominal pain with peritoneal signs on exam. Her inital CT scan was done without IV contrast due to her contrast allergy. I reviewed her initial CT scan from 07/12/[address] De La O today who agreed that there was twisting in the mesentery with mesenteric edema with short segment small bowel dilation suggesting a possible closed loop obstruction. He is unable to decipher if the small bowel segment of concern is part of the biliary limb and may not opacify with oral contrast for a small bowel follow through. He recommended either pre-medicating the patient and doing a CT abdomen/pelvis with contrast or proceeding with a CT without contrast if we need it sooner. I called and thoroughly discussed the entire case with Dr. Holliday. He would like to get stat labs and a stat CT abdomen/pelvis without contrast now and await results. (2) H/O major abdominal surgery: Code(s): Z98.890 - Other specified postprocedural states Status: Acute Assessment and Plan: Multiple previous abdominal surgeries that she has had done at [facility]. When Dr. Holliday was initially called from the ER on 07/12/22, the patient wished to be transferred to [facility] where she has had her previous surgeries. She was accepted at that time, but has been boarded in the ER for the time being due to no bed availability. See plan above. Plan I have discussed the patient's case and plan of care with Dr. Holliday. Subjective Subjective Date/Time Seen: 07/14/22 13:00 Patient reports: still having pain, no flatus, no bowel movement and afebrile Interval history: Patient is seen in the ER. Her chart was reviewed. She was seen in consultation by Dr. Holliday 2 days ago while evaluated in the ER. She was accepted to [facility] where she has had multiple previous abdominal surgeries, including the most recent being an exploratory laparotomy with small bowel resection for a small bowel obstruction 3 months ago in March. She has additionally had gastric bypass, ventral hernia repairs, hysterectomy, and laparoscopic cholecystectomy. Apparently, the ER has been working on getting her transferred but there have been no beds available. They have called [facility] again today and they are still full without any beds available. Therefore, our service was called again and the Hospitalist will be admitting her here while waiting for bed availability. The patient was seen and is still complaining of severe abdominal pain. Dilaudid helps relieve the pain for a short period, she thinks about 30 minutes. She is having some nausea. She does not have an NG tube in place due to her history of gastric bypass and no vomiting. She feels her abdominal pain has gotten worse in the past 2 days. She is not passing gas and her last BM was four days ago. She had labs and a CT abdomen/pelvis done on 07/12 when she was first seen in the ER, but none since. Her vital signs this morning show that she is afebrile, hypertensive (BP 160/117) and tachycardic (HR 111). Her O2 sats are stable
[2022-07-14 14:00] VITALS: BP 166/97; PULSE 103; RESP 16; TEMP 36.6; O2SAT 100
[2022-07-14] MEDS: LACTATED RINGERS 1,000 ML 150 ML IV CONT ×2 (14:58→21:25)
[2022-07-14] MEDS: HYDROmorphone HCL INJ (*CRX) 1 MG/ML SYR IV PUSH ×2 (19:47→21:55)
[2022-07-14 21:13] LABS: Basophils Absolute Auto 0.1 K/mm3 (0.0-0.1); Basophils Percent Auto 0.8 % (0.2-1.2); Eosinophils Percent Auto 0.5 % (0-4.4); Hematocrit 33.4 % (37.0-47.0); Immature Granulocyte Absolute 0.02 K/mm3 (0.00-0.031); Immature Granulocyte Percent A 0.3 % (0-0.5); Lymphocytes Absolute Auto 1.96 K/mm3 (0.9-3.2); Lymphocytes Percent Auto 31.1 % (18.3-44.2); Mean Corpuscular HGB Conc 29.9 g/dl (32-36); Mean Corpuscular Hemoglobin 22.4 pg (26-34); Mean Corpuscular Volume 74.7 fl (80-100); Mean Platelet Volume 10.2 fl (7.4-10.4); Monocytes Absolute Auto 0.5 K/mm3 (0.1-0.6); Monocytes Percent Auto 8.4 % (2.6-8.5); Neutrophils Absolute Auto 3.7 K/mm3 (1.3-6.7); Neutrophils Percent Auto 58.9 % (45.5-73.1); Platelet Count Result 280 k/mm3 (150-375); Red Blood Count 4.47 M/mm3 (4.2-5.4); Red Cell Distribution Width 16.6 % (11.5-14.5); White Blood Count 6.3 K/mm3 (4.5-10.0)
[2022-07-14 21:24] LABS: Lactic Acid Reflex 0.7 mmol/L (0.7-2.0)
[2022-07-14 21:39] LABS: Alanine Aminotransferase 30 U/L (6-35); Albumin Level 3.8 g/dL (3.5-5.1); Alkaline Phosphatase 100 U/L (38-126); Anion Gap 13 mmol/L (8-16); Aspartate Amino Transferase 37 U/L (14-36); Bilirubin,Total 0.8 mg/dL (0.2-1.3); Blood Urea Nitrogen 10 mg/dL (7-17); Calcium 8.5 mg/dL (8.4-10.2); Carbon Dioxide 18 mmol/L (22-30); Chloride 105 mmol/L (98-107); Estimated CRCL calculation 112 ml/min; Estimated Glomerular Filt Rate > 60; Glucose 53 mg/dL (65-110); Potassium 4.9 mmol/L (3.4-5.0); Sodium 136 mmol/L (137-145)
--- NOTE | 2022-07-14 21:45 | PM.IMHP ---
H&P: HPI History of Present Illness Date/Time: 07/14/22 21:45 Chief Complaint: Abdominal pain. Narrative: This is a 52-year-old female with history of bariatric surgery, small-bowel obstructions, ventral hernias, and seizure disorder who presented to the emergency department yesterday from for evaluation of abdominal pain. She was at her daughter's house for Thanksgiving and before they even sat down to have a meal she developed diffuse abdominal pain, similar to that pain she has experience previously with bowel obstructions. She presented to the emergency department on 07/12/[address] at that time showed findings suggestive of a possible closed loop obstruction. she has previously been hospitalized at [facility] with prior small-bowel obstructions and it sounds as though she had a partial small-bowel resection done at their facility in summer 2021. Transfer was initiated to [facility] however they have been unable to get a bed for her and she is being admitted in this setting to the hospital with surgery consultation, pending bed availability. She does not have an NG tube in place due to history of gastric bypass and no vomiting however she has had quite a bit of belching and nausea. Her last bowel movement was 4 days ago and was really unremarkable. She remains NPO and is being hydrated with antiemetics available as needed. At the time my evaluation she has just received IV pain medication she seems resting comfortably. Review of Systems Review of Systems: Twelve systems were reviewed. No fever, chills, or sweats. No chest pain shortness a breath. She has not had any vomiting. No hematemesis, melena, or hematochezia. Last seizure was about 6 weeks ago. Except as documented, all other systems were reviewed and are negative. [facility] Past Medical History Medical History (Updated 07/15/22 @ 00:54 by Polina Banerjee PA-C) Abnormal uterine bleeding Anxiety Arthritis Bulging disc L5-S1 DDD (degenerative disc disease) Depression Epilepsy Finger fracture Gallbladder disease Kidney stone Migraine UTI (urinary tract infection) Surgical History Surgical History H/O lithotripsy H/O resection of small bowel H/O tubal ligation H/O: hysterectomy History of back surgery History of x4 History of cholecystectomy History of gastric bypass History of urethral stent Rt History of ventral hernia repair Hx of tonsillectomy Status post right foot surgery x2 Family History Family History Mother Hypertension Father Family history of chronic obstructive pulmonary disease, Onset Age: 71 Family history of diabetes mellitus in first degree relative Patient's father is Social History Social History (Updated 07/15/22 @ 00:51 by Polina Banerjee PA-C) Social History: Surrogate medical decision maker: Jonathan Chantel, spouse. Code status: full code. Smoking status: Never smoker Alcohol intake: former Substance use type: marijuana Lack of Transportation: No Lack of Food: Never True Current Housing: Decline to Answer Concerned About Future Housing: Decline to Answer Difficulty Paying Gas/Electric Bills: Decline to Answer Difficulty Paying for Meds: Decline to Answer Currently Unemployed: Decline to Answer Education: Decline to Answer Difficulty w/ Childcare or Family Care: Decline to Answer Additional living arrangements comments: The patient lives with her and 9-year-old son in [place]. Additional occupation/education comments: Disabled. Spiritual care concerns: No Meds Home Medications and Allergies Home Medications Medication Instructions Recorded Confirmed Type albuterol sulfate 90 mcg/actuation 2 inh inhalation Q4H PRN shortness 11/21/20 07/14/22 Rx aerosol inhaler of breath or wheezing #8.5 grams hydroxyzine pamoate 50 mg c
[2022-07-14] MEDS: DEXTROSE 50% 25 GM/50 ML SYRINGE IV PUSH (21:59)
[2022-07-14 22:00] VITALS: BP 122/60; PULSE 66; RESP 18; TEMP 36.6; O2SAT 100
[2022-07-14] MEDS: levETIRAcetam 1000MG/NACL100ML 1,000 MG/100 ML BAG 400 MG IVPB (22:02)
[2022-07-14 22:28] LABS: Glucose Point of Care 54 mg/dl (65-105)
[2022-07-14 22:28] LABS: Glucose Point of Care 109 mg/dl (65-105)
[2022-07-14] MEDS: DEXTROSE 5% IN WATER 500 ML 80 ML IV CONT (23:05)
[2022-07-15] MEDS: HYDROmorphone HCL INJ (*CRX) 1 MG/ML SYR IV PUSH ×3 (00:06→23:13)
[2022-07-15] MEDS: LORazepam INJ (*CRX) 2 MG/ML VIAL (04:05)
[2022-07-15 06:00] VITALS: BP 118/58; PULSE 64; RESP 16; TEMP 36.7; O2SAT 100
[2022-07-15 06:20] LABS: Anion Gap 10 mmol/L (8-16); Blood Urea Nitrogen 7 mg/dL (7-17); Calcium 8.8 mg/dL (8.4-10.2); Carbon Dioxide 23 mmol/L (22-30); Chloride 103 mmol/L (98-107); Estimated CRCL calculation 112 ml/min; Estimated Glomerular Filt Rate > 60; Glucose 89 mg/dL (65-110); Potassium 4.1 mmol/L (3.4-5.0); Sodium 136 mmol/L (137-145)
[2022-07-15 06:46] LABS: Iron 40 ug/dL (37-170)
[2022-07-15 06:56] LABS: Percent Iron Saturation 8 % (20-50)
[2022-07-15 07:23] LABS: Folic Acid 17.8 ng/mL (2.76->20)
[2022-07-15 08:35] LABS: Glucose Point of Care 77 mg/dl (65-105)
--- NOTE | 2022-07-15 10:00 | PM.IMPN ---
Progress Note: A&P Assessment and Plan (1) Small bowel obstruction: Code(s): K56.609 - Unspecified intestinal obstruction, unspecified as to partial versus complete obstruction Status: Acute Assessment and Plan: Patient presented to the emergency department with abdominal pain and nausea CT at time of admission showed possible closed loop obstruction Repeat CT showed slight improvement Patient recently had a bowel obstruction surgery done at [facility], transfer has been initiated Pain medications and antiemetics are available Small-bowel follow-through today General surgery consulted NPO status (2) Hypoglycemia: Code(s): E16.2 - Hypoglycemia, unspecified Status: Acute Assessment and Plan: did have a glucose of 56 Currently stable at 89 Dextrose on board Trend glucose Adjust therapy as indicated (3) Seizure disorder: Code(s): G40.909 - Epilepsy, unspecified, not intractable, without status epilepticus Status: Acute Assessment and Plan: Continue home keppra Seems stable at this time (4) Anxiety: Code(s): F41.9 - Anxiety disorder, unspecified Status: Acute Assessment and Plan: Chronic problem Seroquel on hold with NPO status Consider IV medication if becomes uncontrolled Stable at this time (5) Iron deficiency anemia: Code(s): D50.9 - Iron deficiency anemia, unspecified Status: Acute Assessment and Plan: Iron studies indicate iron deficiency anemia H/H stable at 10.0/33.4 Consider IV iron if indicated Currently stable will need supplementation upon discharge Time Spent With Patient Time: 15 extra minutes attempting to start IV Time with patient: Greater than 35 minutes Subjective Date/time seen: 07/15/22 1000 Interval history: 07/15/22 1000 Patient was sitting up in bed. Her IV just infiltrated and she stated that she was in a 10/10 on abdominal pain. She also stated that she is nauseous. She has been able to walk and does a good job walking to the bathroom. She also states that she feels tired and ran down. That attempted started IV however she really clamped down when you try. Dr. Holliday came in the room and stated that he thinks the patient should have a small-bowel follow-through to see if there is any relief. She denies any chest pain, shortness a breath, sweats, fevers, chills. 07/14/22? 21:45 This is a 52-year-old female with history of bariatric surgery, small-bowel obstructions, ventral hernias, and seizure disorder who presented to the emergency department yesterday from for evaluation of abdominal pain. She was at her daughter's house for Thanksgiving and before they even sat down to have a meal she developed diffuse abdominal pain, similar to that pain she has experience previously with bowel obstructions. She presented to the emergency department on 07/12/[address] at that time showed findings suggestive of a possible closed loop obstruction. she has previously been hospitalized at [facility] with prior small-bowel obstructions and it sounds as though she had a partial small-bowel resection done at their facility in summer 2021. Transfer was initiated to [facility] however they have been unable to get a bed for her and she is being admitted in this setting to the hospital with surgery consultation, pending bed availability. She does not have an NG tube in place due to history of gastric bypass and no vomiting however she has had quite a bit of belching and nausea. Her last bowel movement was 4 days ago and was really unremarkable. She remains NPO and is being hydrated with antiemetics available as needed. At the time my evaluation she has just received IV pain medication she seems resting comfortably. Review of Systems Review of Systems: All systems reviewed & are unremarkable except as noted in HPI and below Exam Narrative: Gen
--- NOTE | 2022-07-15 10:00 | P.PNIM_ITS ---
Progress Note: A&P Assessment and Plan (1) Small bowel obstruction: Code(s): K56.609 - Unspecified intestinal obstruction, unspecified as to partial versus complete obstruction Status: Acute Assessment and Plan: * Patient presented to the emergency department with abdominal pain and nausea * CT at time of admission showed possible closed loop obstruction * Repeat CT showed slight improvement * Patient recently had a bowel obstruction surgery done at [facility], transfer has been initiated * Pain medications and antiemetics are available * Small-bowel follow-through today * General surgery consulted * NPO status (2) Hypoglycemia: Code(s): E16.2 - Hypoglycemia, unspecified Status: Acute Assessment and Plan: * did have a glucose of 56 * Currently stable at 89 * Dextrose on board * Trend glucose * Adjust therapy as indicated (3) Seizure disorder: Code(s): G40.909 - Epilepsy, unspecified, not intractable, without status epilepticus Status: Acute Assessment and Plan: * Continue home keppra * Seems stable at this time (4) Anxiety: Code(s): F41.9 - Anxiety disorder, unspecified Status: Acute Assessment and Plan: * Chronic problem * Seroquel on hold with NPO status * Consider IV medication if becomes uncontrolled * Stable at this time (5) Iron deficiency anemia: Code(s): D50.9 - Iron deficiency anemia, unspecified Status: Acute Assessment and Plan: * Iron studies indicate iron deficiency anemia * H/H stable at 10.0/33.4 * Consider IV iron if indicated * Currently stable * will need supplementation upon discharge Time Spent With Patient Time: 15 extra minutes attempting to start IV Time with patient: Greater than 35 minutes Subjective Date/time seen: 07/15/22 1000 Interval history: 07/15/22 1000 Patient was sitting up in bed. Her IV just infiltrated and she stated that she was in a 10/10 on abdominal pain. She also stated that she is nauseous. She has been able to walk and does a good job walking to the bathroom. She also st ates that she feels tired and ran down. That attempted started IV however she really clamped down when you try. Dr. Holliday came in the room and stated that he thinks the patient should have a small-bowel follow-through to see if there is any relief. She denies any chest pain, shortness a breath, sweats, fevers, chills. 07/14/22? 21:45 This is a 52-year-old female with history of bariatric surgery, small-bowel obstructions, ventral hernias, and seizure disorder who presented to the emergency department yesterday from for evaluation of abdominal pain. She was at her daughter's house for Thanksgiving and before they even sat down to have a meal she developed diffuse abdominal pain, similar to that pain she has experience previously with bowel obstructions. She presented to the emergency department on 07/12/[address] at that time showed findings suggestive of a possible closed loop obstruction. she has previously been hospitalized at [facility] with prior small-bowel obstructions and it sounds as though she had a partial small-bowel resection done at their facility in summer 2021. Transfer was initiated to [facility] however they have been unable to get a bed for her and she is being admitted in this setting to the hospital with surgery consultation, pending bed availability. She does not have an NG tube in place
[2022-07-15] MEDS: levETIRAcetam 1000MG/NACL100ML 1,000 MG/100 ML BAG 400 MG IVPB ×2 (10:11→20:48)
[2022-07-15] MEDS: LACTATED RINGERS 1,000 ML 150 ML IV CONT ×2 (10:11→23:16)
--- NOTE | 2022-07-15 11:05 | PM.PNGS ---
Progress Note: A&P Assessment and Plan (1) Small bowel obstruction: Code(s): K56.609 - Unspecified intestinal obstruction, unspecified as to partial versus complete obstruction Status: Acute Assessment and Plan: exam improved, no bowel fxn, will get SBS for further eval, still awaiting transfer Subjective Subjective Date/Time Seen: 07/15/22 11:05 feels a little better, pain better controlled, still no bowel fxn, harry some ice chips Review of Systems Review of Systems: All systems reviewed & are unremarkable except as noted in HPI and below Exam Const: General: cooperative, comfortable and no acute distress Resp: Auscultation: clear to auscultation bilaterally Cardio: Rate: regular rate Rhythm: regular rhythm GI: Inspection: normal to inspection, distended and incision GI Palp: Yes abdominal tenderness, Yes Soft to palpation, Yes Tenderness to palpation present (GI), No Guarding due to palpation present (GI) and No Rigid due to palpation Objective Data Vital Signs Vital Signs: Vital Signs - 24 hr 07/14/22 14:00 07/14/22 18:53 07/14/22 22:00 Temperature 36.6 C 36.6 C Pulse Rate 103 H 66 Respiratory Rate 16 18 Blood Pressure 166/97 H 122/60 Pulse Oximetry 100 100 Oxygen Delivery Room Air 07/15/22 06:00 07/15/22 08:00 Temperature 36.7 C Pulse Rate 64 Respiratory Rate 16 Blood Pressure 118/58 L Pulse Oximetry 100 Oxygen Delivery Room Air Intake/Output Intake/Output: Intake & Output 07/12/22 07/13/22 07/14/22 07/15/22 23:59 23:59 23:59 23:59 Intake Total 2100 100 1100 1500 Balance 2100 100 1100 1500 Meds/Results Medications: Active Medications Generic Name Dose Route Start Last Admin Trade Name Freq PRN Reason Stop Dose Admin Albuterol 2 puff 07/14/22 21:37 Albuterol Sulfate (*Sp) Aerosol 1 Puff INHALATION Q4HRT PRN shortness of breath or wheezing Dextrose 12.5 gm 07/14/22 21:42 07/14/22 21:59 Dextrose 50% 25 Gm/50 Ml Syringe IV PUSH 12.5 gm PRN PRN Administration Hypoglycemia Protocol Glucagon 1 mg 07/14/22 21:42 Glucagon For Inj 1 Mg Vial IM PRN PRN Hypoglycemia Protocol Glucose 15 gm 07/14/22 21:42 Glucose Oral Gel 15 Gm Of Glucse In 37.5 Gm Tube PO PRN PRN Hypoglycemia Protocol Hydromorphone HCl 0.5 mg 07/14/22 13:25 07/14/22 17:32 Hydromorphone Hcl Inj (*Crx) 1 Mg/Ml Syr IV PUSH 0.5 mg Q2H PRN Administration Moderate Pain (4-6) Hydromorphone HCl 1 mg 07/14/22 13:24 07/15/22 03:36 Hydromorphone Hcl Inj (*Crx) 1 Mg/Ml Syr IV PUSH 1 mg Q2H PRN Administration Pain Rated 7-10 Lactated Ringer's 1,000 mls @ 150 mls/hr 07/14/22 13:25 07/15/22 10:11 Lr - Lactated Ringers Iv IV CONT 150 mls/hr .Q6H40M DEANDRE Administration Acetaminophen 1,000 mg in 100 mls @ 400 mls/hr 07/14/22 13:24 Ofirmev 1,000 Mg Ivpb IVPB 07/15/22 13:23 Q6H PRN Pain Rated 1-3 Levetiracetam 1,000 mg in 100 mls @ 400 mls/hr 07/14/22 21:40 07/15/22 10:11 Keppra Iv IVPB 400 mls/hr Q12HR DEANDRE Administration Dextrose 1,000 mls @ 100 mls/hr 07/14/22 21:42 Dextrose 5% 1,000 Ml IVPB PRN PRN Hypoglycemia Protocol Radiology Results: ITS Impressions Abdomen/Pelvis CT 07/14/22 13:55 IMPRESSION: Diminished twisting and diminished density in the mesentery suggesting improvement of internal hernia and/or closed loop obstruction since 07/12/2022 3.9 cm diameter of the jejunum proximal to the jejunal anastomosis, with fluid level; this may be due to adynamic ileus or partial small bowel obstruction. Consider small bowel series for further evaluation as clinically appropriate Labs Labs: Laboratory Results - last 24 hr 07/12/22 07/12/22 07/14/22 12:31 13:48 10:36 WBC 7.3 RBC 4.71 Hgb 10.5 L Hct 35.5 L MCV 75.4 L MCH 22.3 L MCHC 29.6 L RDW 16.7 H Plt Count 305 MPV 9.9 Im
[2022-07-15 12:42] LABS: Glucose Point of Care 81 mg/dl (65-105)
[2022-07-15] MEDS: LIDOCAINE HCL 1% PF INJ 5 ML VIAL INFILTRATE (13:30)
[2022-07-15 14:50] VITALS: BP 141/68; PULSE 75; RESP 16; TEMP 36.7; O2SAT 99
--- NOTE | 2022-07-15 15:45 | PC.NURSE ---
Message left with Dr. Beyer office regarding small bowel series results.
[2022-07-15 17:50] LABS: Glucose Point of Care 76 mg/dl (65-105)
--- NOTE | 2022-07-15 18:25 | PC.NURSE ---
Pt called for pain medication. When this nurse went down to give it to her she was asleep. This is not the first time today. Will continue to check on pt.
[2022-07-15 20:33] LABS: Glucose Point of Care 175 mg/dl (65-105)
[2022-07-15] MEDS: CENTRAL LINE FLUSH 10 ML IV PUSH (20:49)
[2022-07-15 22:00] VITALS: BP 120/61; PULSE 62; RESP 14; TEMP 36.6; O2SAT 99
[2022-07-16 00:25] LABS: Glucose Point of Care 71 mg/dl (65-105)
[2022-07-16] MEDS: HYDROmorphone HCL INJ (*CRX) 1 MG/ML SYR IV PUSH ×6 (02:31→22:53)
[2022-07-16 04:14] LABS: Glucose Point of Care 97 mg/dl (65-105)
[2022-07-16 04:21] LABS: Basophils Percent Auto 0.4 % (0.2-1.2); Eosinophils Absolute Auto 0.1 K/mm3 (0-0.3); Eosinophils Percent Auto 0.8 % (0-4.4); Hematocrit 31.4 % (37.0-47.0); Hemoglobin 9.5 g/dL (12.0-15.0); Immature Granulocyte Absolute 0.02 K/mm3 (0.00-0.031); Immature Granulocyte Percent A 0.3 % (0-0.5); Lymphocytes Absolute Auto 2.16 K/mm3 (0.9-3.2); Lymphocytes Percent Auto 28.6 % (18.3-44.2); Mean Corpuscular HGB Conc 30.3 g/dl (32-36); Mean Corpuscular Hemoglobin 21.6 pg (26-34); Mean Corpuscular Volume 71.4 fl (80-100); Monocytes Absolute Auto 0.8 K/mm3 (0.1-0.6); Monocytes Percent Auto 10.6 % (2.6-8.5); Neutrophils Absolute Auto 4.5 K/mm3 (1.3-6.7); Neutrophils Percent Auto 59.3 % (45.5-73.1); Platelet Count Result 289 k/mm3 (150-375); Red Cell Distribution Width 16.5 % (11.5-14.5); White Blood Count 7.6 K/mm3 (4.5-10.0)
[2022-07-16 04:33] LABS: Alanine Aminotransferase 24 U/L (6-35); Albumin Level 3.5 g/dL (3.5-5.1); Alkaline Phosphatase 105 U/L (38-126); Anion Gap 7 mmol/L (8-16); Aspartate Amino Transferase 29 U/L (14-36); Bilirubin,Total 0.5 mg/dL (0.2-1.3); Blood Urea Nitrogen 4 mg/dL (7-17); Calcium 8.5 mg/dL (8.4-10.2); Carbon Dioxide 26 mmol/L (22-30); Chloride 104 mmol/L (98-107); Estimated CRCL calculation 112 ml/min; Estimated Glomerular Filt Rate > 60; Glucose 90 mg/dL (65-110); Magnesium 1.2 mg/dL (1.6-2.3); Potassium 3.7 mmol/L (3.4-5.0); Sodium 137 mmol/L (137-145)
[2022-07-16 04:58] LABS: Hypochromasia 1+ (NORMAL); Microcytosis 1+ (NORMAL); Platelet Estimate Adequate (Adequate)
[2022-07-16 04:59] LABS: Schistocytes 1+ (NORMAL)
--- NOTE | 2022-07-16 05:00 | PC.NURSE ---
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 Poor po clear liquid intake for dinner. Given Dilaudid 1mg IVP x3 this shift with c/o of abdominal cramping, comes and goes. Pt teary, facial grimace, moans occasionally when pain hits her. Pt up all night after 2330, nonstop talking to this nurse during rounding. 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
[2022-07-16 06:00] VITALS: BP 118/59; PULSE 60; RESP 14; TEMP 36.6; O2SAT 100
[2022-07-16] MEDS: CENTRAL LINE FLUSH 10 ML IV PUSH ×3 (06:21→20:15)
[2022-07-16] MEDS: LACTATED RINGERS 1,000 ML 150 ML IV CONT ×3 (06:21→20:25)
[2022-07-16] MEDS: levETIRAcetam 1000MG/NACL100ML 1,000 MG/100 ML BAG 400 MG IVPB ×2 (08:10→20:15)
[2022-07-16] MEDS: HYDROmorphone HCL INJ (*CRX) 1 MG/ML SYR 0.5 MG IV PUSH ×2 (10:31→15:59)
[2022-07-16] MEDS: MAGNESIUM SULF 4 GM/WATER100ML 4 GM/100 ML BAG IVPB (10:32)
[2022-07-16 11:34] VITALS: BMI 29.9
--- NOTE | 2022-07-16 12:45 | P.PNIM_ITS ---
Progress Note: A&P Assessment and Plan (1) Small bowel obstruction: Code(s): K56.609 - Unspecified intestinal obstruction, unspecified as to partial versus complete obstruction Status: Acute Assessment and Plan: * Patient presented to the emergency department with abdominal pain and nausea * CT at time of admission showed possible closed loop obstruction * Repeat CT showed slight improvement * Patient recently had a bowel obstruction surgery done at [facility], transfer has been initiated * Pain medications and antiemetics are available * Small-bowel follow-through no evidence of obstruction * General surgery consulted * Diet advanced to low fiber (2) Hypoglycemia: Code(s): E16.2 - Hypoglycemia, unspecified Status: Acute Assessment and Plan: * did have a glucose of 56 * Currently stable at 89 * Dextrose on board * Trend glucose * Adjust therapy as indicated * No further episodes (3) Seizure disorder: Code(s): G40.909 - Epilepsy, unspecified, not intractable, without status epilepticus Status: Acute Assessment and Plan: * Continue home keppra * Seems stable at this time (4) Anxiety: Code(s): F41.9 - Anxiety disorder, unspecified Status: Acute Assessment and Plan: * Chronic problem * Seroquel resumed at this time * Consider IV medication if becomes uncontrolled * Stable at this time (5) Iron deficiency anemia: Code(s): D50.9 - Iron deficiency anemia, unspecified Status: Acute Assessment and Plan: * Iron studies indicate iron deficiency anemia * H/H stable at 11.3/37.3 * Currently stable * will need supplementation upon discharge Time Spent With Patient Time with patient: Greater than 35 minutes Subjective Date/time seen: 07/16/22 12:45 Interval history: 07/16/22 1245 Patient is doing okay today. She states she has a lot of pain however she is eating and doing well with food. She denies any chest pain, shortness a breath, nausea, vomiting, diarrhea or constipation. Diet has been advanced and the patient is doing well should be able to discharge tomorrow. 07/15/22 1000 Patient was sitting up in bed. Her IV just infiltrated and she stated that she was in a 10/10 on abdominal pain. She also stated that she is nauseous. She has been able to walk and does a good job walking to the bathroom. She also states that she feels tired and ran down. That attempted started IV however she really clamped down when you try. Dr. Holliday came in the room and stated that he thinks the patient should have a small-bowel follow-through to see if there is any relief. She denies any chest pain, shortness a breath, sweats, fevers, chills. 07/14/22? 21:45 This is a 52-year-old female with history of bariatric surgery, small-bowel obstructions, ventral hernias, and seizure disorder who presented to the emergency department yesterday from for evaluation of abdominal pain. She was at her daughter's house for Thanksgiving and before they even sat down to have a meal she developed diffuse abdominal pain, similar to that pain she has experience previously with bowel obstructions. She presented to the emergency department on 07/12/[address] at that time showed findings suggestive of a possible closed loop obstruction. she has previously been hospitalized at [facility] with prior small-bowel obstructions and it sounds as though she had a partial
--- NOTE | 2022-07-16 12:45 | PM.IMPN ---
Progress Note: A&P Assessment and Plan (1) Small bowel obstruction: Code(s): K56.609 - Unspecified intestinal obstruction, unspecified as to partial versus complete obstruction Status: Acute Assessment and Plan: Patient presented to the emergency department with abdominal pain and nausea CT at time of admission showed possible closed loop obstruction Repeat CT showed slight improvement Patient recently had a bowel obstruction surgery done at [facility], transfer has been initiated Pain medications and antiemetics are available Small-bowel follow-through no evidence of obstruction General surgery consulted Diet advanced to low fiber (2) Hypoglycemia: Code(s): E16.2 - Hypoglycemia, unspecified Status: Acute Assessment and Plan: did have a glucose of 56 Currently stable at 89 Dextrose on board Trend glucose Adjust therapy as indicated No further episodes (3) Seizure disorder: Code(s): G40.909 - Epilepsy, unspecified, not intractable, without status epilepticus Status: Acute Assessment and Plan: Continue home keppra Seems stable at this time (4) Anxiety: Code(s): F41.9 - Anxiety disorder, unspecified Status: Acute Assessment and Plan: Chronic problem Seroquel resumed at this time Consider IV medication if becomes uncontrolled Stable at this time (5) Iron deficiency anemia: Code(s): D50.9 - Iron deficiency anemia, unspecified Status: Acute Assessment and Plan: Iron studies indicate iron deficiency anemia H/H stable at 11.3/37.3 Currently stable will need supplementation upon discharge Time Spent With Patient Time with patient: Greater than 35 minutes Subjective Date/time seen: 07/16/22 12:45 Interval history: 07/16/22 1245 Patient is doing okay today. She states she has a lot of pain however she is eating and doing well with food. She denies any chest pain, shortness a breath, nausea, vomiting, diarrhea or constipation. Diet has been advanced and the patient is doing well should be able to discharge tomorrow. 07/15/22 1000 Patient was sitting up in bed. Her IV just infiltrated and she stated that she was in a 10/10 on abdominal pain. She also stated that she is nauseous. She has been able to walk and does a good job walking to the bathroom. She also states that she feels tired and ran down. That attempted started IV however she really clamped down when you try. Dr. Holliday came in the room and stated that he thinks the patient should have a small-bowel follow-through to see if there is any relief. She denies any chest pain, shortness a breath, sweats, fevers, chills. 07/14/22? 21:45 This is a 52-year-old female with history of bariatric surgery, small-bowel obstructions, ventral hernias, and seizure disorder who presented to the emergency department yesterday from for evaluation of abdominal pain. She was at her daughter's house for Thanksgiving and before they even sat down to have a meal she developed diffuse abdominal pain, similar to that pain she has experience previously with bowel obstructions. She presented to the emergency department on 07/12/[address] at that time showed findings suggestive of a possible closed loop obstruction. she has previously been hospitalized at [facility] with prior small-bowel obstructions and it sounds as though she had a partial small-bowel resection done at their facility in summer 2021. Transfer was initiated to [facility] however they have been unable to get a bed for her and she is being admitted in this setting to the hospital with surgery consultation, pending bed availability. She does not have an NG tube in place due to history of gastric bypass and no vomiting however she has had quite a bit of belching and nausea. Her last bowel movement was 4 days ago and was really unremarkable. She remains NPO and is b
--- NOTE | 2022-07-16 12:48 | PM.PNGS ---
Progress Note: A&P Assessment and Plan (1) Small bowel obstruction: Code(s): K56.609 - Unspecified intestinal obstruction, unspecified as to partial versus complete obstruction Status: Acute Assessment and Plan: resolving, exam improved, harry clears, ADAT, encourage OOB/IS Subjective Subjective Date/Time Seen: 07/16/22 12:48 feels better, still c cramping and pain although improved, +small bowel movts Review of Systems Review of Systems: All systems reviewed & are unremarkable except as noted in HPI and below Exam Const: General: cooperative, comfortable and no acute distress Resp: Auscultation: clear to auscultation bilaterally Cardio: Rate: regular rate Rhythm: regular rhythm GI: Inspection: normal to inspection and distended GI Palp: Yes abdominal tenderness, Yes Soft to palpation, Yes Tenderness to palpation present (GI), No Guarding due to palpation present (GI) and No Rigid due to palpation Objective Data Vital Signs Vital Signs: Vital Signs - 24 hr 07/15/22 14:50 07/15/22 22:00 07/16/22 06:00 Temperature 36.7 C 36.6 C 36.6 C Pulse Rate 75 62 60 Respiratory Rate 16 14 14 Blood Pressure 141/68 H 120/61 118/59 L Pulse Oximetry 99 99 100 Oxygen Delivery 07/16/22 08:00 Temperature Pulse Rate Respiratory Rate Blood Pressure Pulse Oximetry Oxygen Delivery Room Air Intake/Output Intake/Output: Intake & Output 07/13/22 07/14/22 07/15/22 07/16/22 23:59 23:59 23:59 23:59 Intake Total 100 1100 2840 1440 Balance 100 1100 2840 1440 Meds/Results Medications: Active Medications Generic Name Dose Route Start Last Admin Trade Name Freq PRN Reason Stop Dose Admin Albuterol 2 puff 07/14/22 21:37 Albuterol Sulfate (*Sp) Aerosol 1 Puff INHALATION Q4HRT PRN shortness of breath or wheezing Dextrose 12.5 gm 07/14/22 21:42 07/14/22 21:59 Dextrose 50% 25 Gm/50 Ml Syringe IV PUSH 12.5 gm PRN PRN Administration Hypoglycemia Protocol Glucagon 1 mg 07/14/22 21:42 Glucagon For Inj 1 Mg Vial IM PRN PRN Hypoglycemia Protocol Glucose 15 gm 07/14/22 21:42 Glucose Oral Gel 15 Gm Of Glucse In 37.5 Gm Tube PO PRN PRN Hypoglycemia Protocol Hydromorphone HCl 0.5 mg 07/14/22 13:25 07/16/22 10:31 Hydromorphone Hcl Inj (*Crx) 1 Mg/Ml Syr IV PUSH 0.5 mg Q2H PRN Administration Moderate Pain (4-6) Hydromorphone HCl 1 mg 07/14/22 13:24 07/16/22 12:45 Hydromorphone Hcl Inj (*Crx) 1 Mg/Ml Syr IV PUSH 1 mg Q2H PRN Administration Pain Rated 7-10 Lactated Ringer's 1,000 mls @ 150 mls/hr 07/14/22 13:25 07/16/22 06:21 Lr - Lactated Ringers Iv IV CONT 150 mls/hr .Q6H40M DEANDRE Administration Levetiracetam 1,000 mg in 100 mls @ 400 mls/hr 07/14/22 21:40 07/16/22 08:25 Keppra Iv IVPB Infused Q12HR DEANDRE Infusion Dextrose 1,000 mls @ 100 mls/hr 07/14/22 21:42 Dextrose 5% 1,000 Ml IVPB PRN PRN Hypoglycemia Protocol Sodium Chloride 10 ml 07/15/22 22:00 07/16/22 06:21 Central Line Flush IV PUSH 10 ml Q8HR DEANDRE Administration Sodium Chloride 10 ml 07/15/22 14:17 Central Line Flush IV PUSH PRN PRN with TPN bag changes Sodium Chloride 20 ml 07/15/22 14:17 Central Line Flush IV PUSH PRN PRN after blood draws Radiology Results: ITS Impressions Abdomen/Pelvis CT 07/14/22 13:55 IMPRESSION: Diminished twisting and diminished density in the mesentery suggesting improvement of internal hernia and/or closed loop obstruction since 07/12/2022 3.9 cm diameter of the jejunum proximal to the jejunal anastomosis, with fluid level; this may be due to adynamic ileus or partial small bowel obstruction. Consider small bowel series for further evaluation as clinically appropriate Upper GI and Small Bowel X-Ray 07/15/22 15:07 IMPRESSION: 1: Unremarkable small bowel series. No evidence for obstruction.
[2022-07-16 13:57] VITALS: BP 136/76; PULSE 112; RESP 16; TEMP 36.9; O2SAT 97
[2022-07-16 15:57] LABS: Glucose Point of Care 143 mg/dl (65-105)
[2022-07-16 17:19] LABS: Glucose Point of Care 168 mg/dl (65-105)
[2022-07-16 21:32] LABS: Glucose Point of Care 132 mg/dl (65-105)
[2022-07-16 22:00] VITALS: BP 104/66; PULSE 82; RESP 18; TEMP 36.6; O2SAT 98
[2022-07-16] MEDS: ONDANSETRON INJ 4 MG/2 ML VIAL IV PUSH (22:53)
[2022-07-17] MEDS: HYDROmorphone HCL INJ (*CRX) 1 MG/ML SYR 0.5 MG IV PUSH ×2 (02:23→11:44)
[2022-07-17] MEDS: LACTATED RINGERS 1,000 ML 150 ML IV CONT ×2 (02:29→08:59)
[2022-07-17 05:47] LABS: Basophils Percent Auto 0.6 % (0.2-1.2); Eosinophils Absolute Auto 0.2 K/mm3 (0-0.3); Eosinophils Percent Auto 2.7 % (0-4.4); Hematocrit 28.2 % (37.0-47.0); Hemoglobin 8.6 g/dL (12.0-15.0); Immature Granulocyte Absolute 0.02 K/mm3 (0.00-0.031); Immature Granulocyte Percent A 0.3 % (0-0.5); Lymphocytes Absolute Auto 2.22 K/mm3 (0.9-3.2); Lymphocytes Percent Auto 32.1 % (18.3-44.2); Mean Corpuscular HGB Conc 30.5 g/dl (32-36); Mean Corpuscular Hemoglobin 22.1 pg (26-34); Mean Corpuscular Volume 72.3 fl (80-100); Mean Platelet Volume 10.3 fl (7.4-10.4); Monocytes Absolute Auto 0.8 K/mm3 (0.1-0.6); Neutrophils Absolute Auto 3.7 K/mm3 (1.3-6.7); Neutrophils Percent Auto 53.3 % (45.5-73.1); Platelet Count Result 247 k/mm3 (150-375); Red Cell Distribution Width 16.9 % (11.5-14.5); White Blood Count 6.9 K/mm3 (4.5-10.0)
[2022-07-17 05:56] LABS: Alanine Aminotransferase 20 U/L (6-35); Albumin Level 2.9 g/dL (3.5-5.1); Alkaline Phosphatase 82 U/L (38-126); Anion Gap 3 mmol/L (8-16); Aspartate Amino Transferase 22 U/L (14-36); Bilirubin,Total 0.3 mg/dL (0.2-1.3); Blood Urea Nitrogen 2 mg/dL (7-17); Calcium 7.9 mg/dL (8.4-10.2); Carbon Dioxide 30 mmol/L (22-30); Chloride 105 mmol/L (98-107); Estimated CRCL calculation 112 ml/min; Estimated Glomerular Filt Rate > 60; Glucose 113 mg/dL (65-110); Magnesium 1.5 mg/dL (1.6-2.3); Potassium 3.6 mmol/L (3.4-5.0); Sodium 138 mmol/L (137-145)
[2022-07-17 06:00] VITALS: BP 151/85; PULSE 101; RESP 18; TEMP 36.7; O2SAT 96
[2022-07-17] MEDS: HYDROmorphone HCL INJ (*CRX) 1 MG/ML SYR IV PUSH (06:40)
[2022-07-17] MEDS: CENTRAL LINE FLUSH 10 ML IV PUSH (06:41)
[2022-07-17 06:50] LABS: Glucose Point of Care 104 mg/dl (65-105)
--- NOTE | 2022-07-17 07:30 | PM.DS ---
DS: Admitting Diagnosis Discharge Date 07/17/2022 0730 Admitting Diagnosis Small Bowel obstruction DS: Discharge Diagnosis Discharge Diagnosis (1) Small bowel obstruction: Code(s): K56.609 - Unspecified intestinal obstruction, unspecified as to partial versus complete obstruction Status: Acute Assessment and Plan: Patient presented to the emergency department with abdominal pain and nausea CT at time of admission showed possible closed loop obstruction Repeat CT showed slight improvement Patient recently had a bowel obstruction surgery done at [facility], transfer has been initiated Pain medications and antiemetics are available Small-bowel follow-through no evidence of obstruction General surgery consulted Diet advanced to low fiber (2) Hypoglycemia: Code(s): E16.2 - Hypoglycemia, unspecified Status: Acute Assessment and Plan: did have a glucose of 56 Currently stable at 89 Dextrose on board Trend glucose Adjust therapy as indicated No further episodes (3) Seizure disorder: Code(s): G40.909 - Epilepsy, unspecified, not intractable, without status epilepticus Status: Acute Assessment and Plan: Continue home keppra Seems stable at this time (4) Anxiety: Code(s): F41.9 - Anxiety disorder, unspecified Status: Acute Assessment and Plan: Chronic problem Seroquel resumed at this time Consider IV medication if becomes uncontrolled Stable at this time (5) Iron deficiency anemia: Code(s): D50.9 - Iron deficiency anemia, unspecified Status: Acute Assessment and Plan: Iron studies indicate iron deficiency anemia H/H stable at 10.8/33.9 Currently stable will need supplementation upon discharge DS: Summary Hospital Course Hospital Course: This is a 52-year-old female with history of bariatric surgery, small-bowel obstructions, ventral hernias, and seizure disorder who presented to the emergency department for evaluation of abdominal pain. CT at that time of admission she did show possible closed loop obstruction. General surgery was consulted and a repeat CT was done as well. Patient was started on IV fluids and transferred to [facility] was initiated. Patient was feeling better and a small-bowel follow-through was completed with no evidence of obstruction at that time. A diet was started at that time and patient was able to tolerate a low-fiber diet at that time. Patient still has some pain however is tolerable at this time and she is requesting discharge. Labs and vital signs are stable today. Patient also had a notable hypoglycemic event and her glucose was 56 and had rapidly been increased with dextrose. No further episodes have been reported or seen. Current glucose is 113. Anemia labs were drawn due to anemia and patient was noted to have iron deficiency. Patient will be started on iron post discharge. Patient is being discharged home and return instructions have been given. Patient verbalized understanding. Patient will also need to follow-up with her surgeon at [facility] for further instructions. Status at Discharge Functional status at discharge: independent ambulation Overall status at discharge: patient is progressing back to baseline Time Spent with Patient Time attestation: Total time spent providing and/or coordinating discharge services: 42 minute Time spent: Greater than 30 minutes Specific discharge activities: Diagnostic testing, chart review, developing a treatment plan, education, care coordination documentation, physical exam, result review Exam Narrative: General: well-nourished, well-appearing 52 year old female, sitting up in bed, comfortable, NARD Neuro: awake, alert and oriented x4, speech clear, no focal neuro deficits noted HEENMT: normocephalic, atraumatic, EOMI, sclerae anicteric, moist oral mucosa Respiratory: Alexandra
--- NOTE | 2022-07-17 07:30 | P.DS_ITS ---
DS: Admitting Diagnosis Discharge Date 07/17/2022 0730 Admitting Diagnosis Small Bowel obstruction DS: Discharge Diagnosis Discharge Diagnosis (1) Small bowel obstruction: Code(s): K56.609 - Unspecified intestinal obstruction, unspecified as to partial versus complete obstruction Status: Acute Assessment and Plan: * Patient presented to the emergency department with abdominal pain and nausea * CT at time of admission showed possible closed loop obstruction * Repeat CT showed slight improvement * Patient recently had a bowel obstruction surgery done at [facility], transfer has been initiated * Pain medications and antiemetics are available * Small-bowel follow-through no evidence of obstruction * General surgery consulted * Diet advanced to low fiber (2) Hypoglycemia: Code(s): E16.2 - Hypoglycemia, unspecified Status: Acute Assessment and Plan: * did have a glucose of 56 * Currently stable at 89 * Dextrose on board * Trend glucose * Adjust therapy as indicated * No further episodes (3) Seizure disorder: Code(s): G40.909 - Epilepsy, unspecified, not intractable, without status epilepticus Status: Acute Assessment and Plan: * Continue home keppra * Seems stable at this time (4) Anxiety: Code(s): F41.9 - Anxiety disorder, unspecified Status: Acute Assessment and Plan: * Chronic problem * Seroquel resumed at this time * Consider IV medication if becomes uncontrolled * Stable at this time (5) Iron deficiency anemia: Code(s): D50.9 - Iron deficiency anemia, unspecified Status: Acute Assessment and Plan: * Iron studies indicate iron deficiency anemia * H/H stable at 10.8/33.9 * Currently stable * will need supplementation upon discharge DS: Summary Hospital Course Hospital Course: This is a 52-year-old female with history of bariatric surgery, small-bowel obstructions, ventral hernias, and seizure disorder who presented to the emergency department for evaluation of abdominal pain. CT at that time of admission she did show possible closed loop obstruction. General surgery was consulted and a repeat CT was done as well. Patient was started on IV fluids and transferred to [facility] was initiated. Patient was feeling better and a small-bowel follow-through was completed with no evidence of obstruction at that time. A diet was started at that time and patient was able to tolerate a low- fiber diet at that time. Patient still has some pain however is tolerable at this time and she is requesting discharge. Labs and vital signs are stable today. Patient also had a notable hypoglycemic event and her glucose was 56 and had rapidly been increased with dextrose. No further episodes have been reported or seen. Current glucose is 113. Anemia labs were drawn due to anemia and patient was noted to have iron deficiency. Patient will be started on iron post discharge. Patient is being discharged home and return instructions have been given. Patient verbalized understanding. Patient will also need to follow-up with her surgeon at [facility] for further instructions. Status at Discharge Functional status at discharge: independent ambulation Overall status at discharge: patient is progressing back to baseline Time Spent with Patient Time attestation: Total time spent providing and/or coordinating discharge services: 42 minute Time spent: Joe
[2022-07-17] MEDS: HYDROcodone/acetaminophen (*CRX) 5-325 MG TABLET 1 TAB PO (08:58)
[2022-07-17] MEDS: levETIRAcetam 1000MG/NACL100ML 1,000 MG/100 ML BAG 400 MG IVPB (08:59)
--- NOTE | 2022-07-17 11:15 | PM.PNGS ---
Progress Note: A&P Assessment and Plan (1) Small bowel obstruction: Code(s): K56.609 - Unspecified intestinal obstruction, unspecified as to partial versus complete obstruction Status: Acute Assessment and Plan: resolved, exam benign, harry diet, +bowel fxn, ok to dc home from surgical standpoint and f/u c her surgeons at [facility], will s/o, call c ?s, issues Subjective Subjective Date/Time Seen: 07/17/22 11:15 no acute issues, still c some abd discomfort but improved, harry diet and having bowel fxn Review of Systems Review of Systems: All systems reviewed & are unremarkable except as noted in HPI and below Exam Const: General: cooperative, comfortable and no acute distress GI: Inspection: normal to inspection and non-distended GI Palp: Yes abdominal tenderness, Yes Soft to palpation, Yes Tenderness to palpation present (GI), No Guarding due to palpation present (GI) and No Rigid due to palpation Objective Data Vital Signs Vital Signs: Vital Signs - 24 hr 07/16/22 13:57 07/16/22 22:00 07/17/22 06:00 Temperature 36.9 C 36.6 C 36.7 C Pulse Rate 112 H 82 101 H Respiratory Rate 16 18 18 Blood Pressure 136/76 104/66 151/85 H Pulse Oximetry 97 98 96 Intake/Output Intake/Output: Intake & Output 07/14/22 07/15/22 07/16/22 07/17/22 23:59 23:59 23:59 23:59 Intake Total 1100 2840 4520 2540 Balance 1100 2840 4520 2540 Meds/Results Medications: Active Medications Generic Name Dose Route Start Last Admin Trade Name Freq PRN Reason Stop Dose Admin Hydrocodone Bitart/Acetaminophen 1 tab 07/17/22 08:00 07/17/22 08:58 Hydrocodone/Acetaminophen (*Crx) 5-325 Mg Tablet PO 1 tab Q4H PRN Administration Pain Rated 4-10 Albuterol 2 puff 07/14/22 21:37 Albuterol Sulfate (*Sp) Aerosol 1 Puff INHALATION Q4HRT PRN shortness of breath or wheezing Dextrose 12.5 gm 07/14/22 21:42 07/14/22 21:59 Dextrose 50% 25 Gm/50 Ml Syringe IV PUSH 12.5 gm PRN PRN Administration Hypoglycemia Protocol Glucagon 1 mg 07/14/22 21:42 Glucagon For Inj 1 Mg Vial IM PRN PRN Hypoglycemia Protocol Glucose 15 gm 07/14/22 21:42 Glucose Oral Gel 15 Gm Of Glucse In 37.5 Gm Tube PO PRN PRN Hypoglycemia Protocol Hydromorphone HCl 0.5 mg 07/17/22 08:01 Hydromorphone Hcl Inj (*Crx) 1 Mg/Ml Syr IV PUSH Q4H PRN breakthrough pain Lactated Ringer's 1,000 mls @ 150 mls/hr 07/14/22 13:25 07/17/22 08:59 Lr - Lactated Ringers Iv IV CONT 150 mls/hr .Q6H40M DEANDRE Administration Levetiracetam 1,000 mg in 100 mls @ 400 mls/hr 07/14/22 21:40 07/17/22 08:59 Keppra Iv IVPB 400 mls/hr Q12HR DEANDRE Administration Dextrose 1,000 mls @ 100 mls/hr 07/14/22 21:42 Dextrose 5% 1,000 Ml IVPB PRN PRN Hypoglycemia Protocol Metoclopramide HCl 5 mg 07/17/22 11:30 Metoclopramide Hcl 5 Mg Tablet PO ACHS DEANDRE Sodium Chloride 10 ml 07/15/22 22:00 07/17/22 06:41 Central Line Flush IV PUSH 10 ml Q8HR DEANDRE Administration Sodium Chloride 10 ml 07/15/22 14:17 Central Line Flush IV PUSH PRN PRN with TPN bag changes Sodium Chloride 20 ml 07/15/22 14:17 Central Line Flush IV PUSH PRN PRN after blood draws Radiology Results: ITS Impressions Abdomen/Pelvis CT 07/14/22 13:55 IMPRESSION: Diminished twisting and diminished density in the mesentery suggesting improvement of internal hernia and/or closed loop obstruction since 07/12/2022 3.9 cm diameter of the jejunum proximal to the jejunal anastomosis, with fluid level; this may be due to adynamic ileus or partial small bowel obstruction. Consider small bowel series for further evaluation as clinically appropriate Upper GI and Small Bowel X-Ray 07/15/22 15:07 IMPRESSION: 1: Unremarkable small bowel series. No evidence for obstruction. Labs Labs: Laboratory Results - last 24 hr 07/16/22
--- NOTE | 2022-07-17 14:11 | PC.NURSE ---
Removed patients Picc line at 1340, held pressure per protocol and dressed site. I instructed patient to rest in bed for 30 mins. I instructed her I would re-assess site at that time and have a PCT take her out in a wheel chair. Die Casting Supervisor came back at 1410 and patient had left with visitors
== END 2022-07-17 14:10 | disposition home or self-care (01) | DRG 390 ==
LOC: ANHED 07-14 11:31 → ANH3MED 07-14 13:24
PROVIDERS: Emergency Medicine; General Practice; Nurse Practitioner Family; Physician Assistant; Admitting Provider Family Medicine; Emergency Provider Emergency Medicine; PCP Internal Medicine; Visit Provider Nurse Practitioner
DX: K56.609 Unspecified intestinal obstruction, unspecified as to partial versus complete obstruction (principal); D50.9 Iron deficiency anemia, unspecified; G40.909 Epilepsy, unspecified, not intractable, without status epilepticus; F41.9 Anxiety disorder, unspecified; E16.2 Hypoglycemia, unspecified; M19.90 Unspecified osteoarthritis, unspecified site; Z20.822 Contact with and (suspected) exposure to COVID-19; Z98.84 Bariatric surgery status; Z90.49 Acquired absence of other specified parts of digestive tract; Z90.710 Acquired absence of both cervix and uterus
CPT/HCPCS: 36415; 36569; 74176; 74250; 80048; 80053; 81001; 81025; 82607; 82728; 82746; 82948; 83540; 83550; 83605; 83690; 83735; 85025; 87636; 96361; 96365; 96375; 96376; 99285; A9270; C1751; J0131; J1170; J1953; J2060; J2405; J3475; J7030; J7060; J7120

== ENCOUNTER 2023-11-10 11:02 | Inpatient (IN) | payer MEDICARE, MEDICAID, SELFPAY ==
[2023-11-10] VITALS (7 sets, daily range): BP systolic 126–162; BP diastolic 61–104; PULSE 60–87; RESP 14–20; TEMP 36.6–37.1; O2SAT 93–98; BMI 34.7
--- NOTE | ~2023-11-10 | CT_ITS ---
EXAMINATION: CT abdomen pelvis wo con DATE: 11/10/2023 11:45 INDICATION: Left flank pain. TECHNIQUE: Computed tomography (CT) of the abdomen and pelvis was performed without intravenous contr ast. Automated exposure control and iterative reconstruction technique were employed. The dose-length product was 1045.08 mGy-cm. COMPARISON: CT abdomen and pelvis 07/14/2022 FINDINGS: The visualized portions of the lung bases are clear without pneumonia or pleural effusion. The heart size is normal. No pericardial effusion. The liver is normal. There are changes of cholecys tectomy. The spleen is normal. There are surgical changes of the stomach. The pancreas and adrenal gl ands are normal. There are 1 mm and 2 mm stones in right kidney. There is a 2 mm stone in left kidney . There is a 10 mm cyst in left kidney. There are changes of right hemicolectomy. There are no dilate d loops of bowel. There are no pathologically enlarged lymph nodes. There is no free intraperitoneal fluid. There is severe lumbar spondylosis. IMPRESSION: 1. No etiology for the patient's symptoms. 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
--- NOTE | 2023-11-10 11:31 | ED.ABDPAIN ---
HPI - Abdominal Pain General Chief Complaint: Back Pain/Injury Stated Complaint: L flank pain Time Seen by Provider: 11/10/23 11:26 History of Present Illness HPI narrative: Pt presents with left flank pain radiating to left lower quadrant for several hours. Pt also has dysuria and frequency. Pt is nauseated but not vomiting. Pt denies diarrhea. Pt has history of kidney stones and lithotripsy and also gastric bypass and reversal with SBO's. Pt denies fever. Related Data Home Medications Medication Instructions Recorded Confirmed levetiracetam 1,000 mg tablet 1,000 mg PO Q12H 11/21/20 11/10/23 tizanidine 4 mg capsule 8 mg PO QHS 11/21/20 11/10/23 topiramate 100 mg tablet 100 mg PO BID 07/14/22 11/10/23 Allergies Allergy/AdvReac Type Severity Reaction Status Date / Time esomeprazole Allergy Unknown Hives Verified 11/10/23 11:03 iodine Allergy Unknown Swelling Verified 11/10/23 11:03 of Lip/Tongue/Throat ketorolac [From Toradol] Allergy Hives Verified 11/10/23 11:03 Contrast Media Allergy Unknown Swelling Uncoded 11/10/23 11:03 of Lip/Tongue/Throat Review of Systems Review of Systems: All systems reviewed & are unremarkable except as noted in HPI and below PMFSH Past Medical History Medical History (Updated 11/10/23 @ 13:35 by Gracie Anaya APRN) Abnormal uterine bleeding Anxiety Arthritis Bulging disc L5-S1 DDD (degenerative disc disease) Depression Epilepsy Finger fracture Gallbladder disease Kidney stone Migraine UTI (urinary tract infection) Surgical History Surgical History H/O lithotripsy H/O resection of small bowel H/O tubal ligation H/O: hysterectomy History of back surgery History of x4 History of cholecystectomy History of gastric bypass History of urethral stent Rt History of ventral hernia repair Hx of tonsillectomy Status post right foot surgery x2 Family History Family History Mother Hypertension Father Family history of chronic obstructive pulmonary disease, Onset Age: 71 Family history of diabetes mellitus in first degree relative Patient's father is Social History Social History (Updated 07/15/22 @ 00:51 by Polina Banerjee PA-C) Social History: Surrogate medical decision maker: Jonathan Golden, spouse. Code status: full code. Smoking status: Never smoker Alcohol intake: never Substance use: never Substance use type: marijuana Do You Feel Safe in your Home?: Yes Lack of Transportation: No Lack of Food: Never True Current Housing: I Have Housing Concerned About Future Housing: No Difficulty Paying Gas/Electric Bills: No Difficulty Paying for Meds: No Currently Unemployed: No Education: Trade/Vocational Certificate Difficulty w/ Childcare or Family Care: No Additional living arrangements comments: The patient lives with her and 9-year-old son in [place]. Additional occupation/education comments: Disabled. Spiritual care concerns: No Exam Const: General: healthy appearing and no acute distress Nutritional Appearance: well nourished Orientation/consciousness: patient oriented x3 Limitations: no limitations Resp: Effort & Inspection: normal respiratory effort Auscultation: clear to auscultation bilaterally Cardio: Rate: regular rate Rhythm: regular rhythm GI: GI Palp: Yes Soft to palpation Auscultation: normal bowel sounds : General: Yes CVA tenderness on the left Back/Spine/Pelvis: Back: CVA tenderness (left) Skin: General skin exam: normal color Wounds: no wounds Neuro: General: patient oriented x3, moves all extremities and no focal motor deficits Speech: normal speech Extrem: General: normal to inspection and no clubbing, cyanosis or edema Psych: Mental Status: mental status grossly normal Affect: normal affect
[2023-11-10 11:43] LABS: Basophils Absolute Auto 0.1 K/mm3 (0.0-0.1); Basophils Percent Auto 0.7 % (0.2-1.2); Eosinophils Absolute Auto 0.1 K/mm3 (0-0.3); Eosinophils Percent Auto 0.8 % (0-4.4); Hematocrit 47.9 % (37.0-47.0); Hemoglobin 14.8 g/dL (12.0-15.0); Immature Granulocyte Absolute 0.02 K/mm3 (0.00-0.031); Immature Granulocyte Percent A 0.2 % (0-0.5); Lymphocytes Absolute Auto 2.64 K/mm3 (0.9-3.2); Lymphocytes Percent Auto 28.7 % (18.3-44.2); Mean Corpuscular HGB Conc 30.9 g/dl (32-36); Mean Corpuscular Hemoglobin 25.9 pg (26-34); Mean Corpuscular Volume 83.7 fl (80-100); Mean Platelet Volume 9.4 fl (7.4-10.4); Monocytes Absolute Auto 0.6 K/mm3 (0.1-0.6); Monocytes Percent Auto 6.5 % (2.6-8.5); Neutrophils Absolute Auto 5.8 K/mm3 (1.3-6.7); Neutrophils Percent Auto 63.1 % (45.5-73.1); Platelet Count Result 290 k/mm3 (150-375); Red Blood Count 5.72 M/mm3 (4.2-5.4); White Blood Count 9.2 K/mm3 (4.5-10.0)
[2023-11-10 11:47] LABS: Bacteria Urine 4+ /hpf; Non Pathogenic Casts 0-2; RBC Urine >100 /hpf (0-2); Squamous Epithelial Cell Urine None Seen /hpf (Few); WBC Urine >100 /hpf (0-3)
[2023-11-10] MEDS: HYDROmorphone HCL INJ (*CRX) 1 MG/ML SYR 0.5 MG IV PUSH (11:47)
[2023-11-10] MEDS: ONDANSETRON INJ 4 MG/2 ML VIAL IV PUSH ×3 (11:47→19:19)
[2023-11-10 11:59] LABS: Appearance Urine Cloudy (Clear); Color Urine Yellow (Yellow)
[2023-11-10 12:00] LABS: Blood Urine 3+ (Negative); Glucose Urine UA Negative (Negative); Ketones Urine Negative (Negative); Nitrate Urine Positive (Negative); Protein Urine 1+ mg/dL (Negative)
[2023-11-10 12:01] LABS: Bilirubin Urine Negative (Negative); Leukocyte Esterase Ur 2+ LEU/UL (Negative); Urobilinogen Urine 0.2 mg/dL (<2.0)
[2023-11-10 12:03] LABS: Add Urine Microscopic? YES
[2023-11-10 12:21] LABS: Alanine Aminotransferase 23 U/L (6-35); Albumin Level 4.2 g/dL (3.5-5.1); Alkaline Phosphatase 111 U/L (38-126); Anion Gap 11 mmol/L (4-12); Aspartate Amino Transferase 24 U/L (14-36); Bilirubin,Total 0.5 mg/dL (0.2-1.3); Blood Urea Nitrogen 16 mg/dL (7-17); Calcium 9.1 mg/dL (8.4-10.2); Carbon Dioxide 17 mmol/L (22-30); Chloride 112 mmol/L (98-107); Estimated CRCL calculation 85 ml/min; Estimated Glomerular Filt Rate > 60; Glucose 124 mg/dL (65-110); Potassium 4.3 mmol/L (3.4-5.0); Sodium 140 mmol/L (137-145)
[2023-11-10] MEDS: HYDROmorphone HCL INJ (*CRX) 1 MG/ML SYR IV PUSH ×2 (12:32→21:02)
[2023-11-10] MEDS: cefTRIAXone 2 GM/NS 100 ML 2 GM/100 ML BAG IVPB (12:32)
--- NOTE | 2023-11-10 13:29 | PM.IMHP ---
H&P: HPI History of Present Illness Date/Time: 11/10/23 13:29 Chief Complaint: Flank Pain Narrative: 53 y/o F presents here with left flank pain with PMH of kidney stones, urgency, and difficulty urinating with PMH of gastric bypass with reversal, epilepsy, depression, kidney stones, UTI, DDD, SBOs, and arthritis. Patient presented here for further evaluation of left flank pain. Patient describes pain as sharp, with radiation into the left lower quadrant, and constant. Also having suprapubic pain that worsens with urination. Pain has been ongoing since Wednesday, 11/04. Put off being seen due to family/economic issues. Experiencing associated dysuria, frequency, and difficulty emptying bladder. Patient has history of kidney stones that required lithotripsy. Also endorsing malaise and chills. Denying fever or body aches. Heat offers some alleviation from pain. Aggravated by urination. Initial VS at presentation: at 98.7? F, HR 87, RR 20, 149/104, 98% on RA. ED workup showed: No leukocytosis, no anemia, glucose 124, and UA suggestive of UTI. CT of the abd/pelvis showed no etiology for the patient's symptoms. Review of Systems Review of Systems: All systems reviewed & are unremarkable except as noted in HPI and below PMFSH Past Medical History Medical History (Updated 11/10/23 @ 13:35 by Gracie Anaya, ESTRELLA) Abnormal uterine bleeding Anxiety Arthritis Bulging disc L5-S1 DDD (degenerative disc disease) Depression Epilepsy Finger fracture Gallbladder disease Kidney stone Migraine UTI (urinary tract infection) Surgical History Surgical History H/O lithotripsy H/O resection of small bowel H/O tubal ligation H/O: hysterectomy History of back surgery History of x4 History of cholecystectomy History of gastric bypass History of urethral stent Rt History of ventral hernia repair Hx of tonsillectomy Status post right foot surgery x2 Family History Family History Mother Hypertension Father Family history of chronic obstructive pulmonary disease, Onset Age: 71 Family history of diabetes mellitus in first degree relative Patient's father is Social History Social History (Updated 11/30/22 @ 00:51 by Polina Banerjee PA-C) Social History: Surrogate medical decision maker: Jonathan Golden, spouse. Code status: full code. Smoking status: Never smoker Alcohol intake: never Substance use: never Substance use type: marijuana Do You Feel Safe in your Home?: Yes Lack of Transportation: No Lack of Food: Never True Current Housing: I Have Housing Concerned About Future Housing: No Difficulty Paying Gas/Electric Bills: No Difficulty Paying for Meds: No Currently Unemployed: No Education: Trade/Vocational Certificate Difficulty w/ Childcare or Family Care: No Additional living arrangements comments: The patient lives with her and 9-year-old son in [place]. Additional occupation/education comments: Disabled. Spiritual care concerns: No Meds Home Medications and Allergies Home Medications Medication Instructions Recorded Confirmed Type levetiracetam 1,000 mg tablet 1,000 mg PO Q12H 11/21/20 11/10/23 History tizanidine 4 mg capsule 8 mg PO QHS 11/21/20 11/10/23 History topiramate 100 mg tablet 100 mg PO BID 07/14/22 11/10/23 History Allergies Allergy/AdvReac Type Severity Reaction Status Date / Time esomeprazole Allergy Unknown Hives Verified 11/10/23 11:03 iodine Allergy Unknown Swelling Verified 11/10/23 11:03 of Lip/Tongue/Throat ketorolac [From Toradol] Allergy Hives Verified 11/10/23 11:03 Contrast Media Allergy Unknown Swelling Uncoded 11/10/23 11:03 of Lip/Tongue/Throat Vital Signs Vital Signs - 24 hr 11/10/23 11:11 Temperature 98.7 F Pulse Rate 87 Respirato
[2023-11-10] MEDS: fentaNYL CITRATE INJ (*CRX) 100 MCG/2 ML VIAL 50 MCG IV PUSH (13:35)
--- NOTE | 2023-11-10 15:20 | ADMGEN ---
This patient, Misti Golden, was admitted to 3 Med Surg Room 324-01. Patient/family oriented to hospital policies and general routines including ID bracelet, bed and alarms, visiting hours, pain management, procedures, bathroom and other care routines, personal items, smoking policy, room service/diet, and visiting hours. Information on how to activate the Rapid Response Team has been discussed. Patient/Family are encouraged to report perceived risks to care and to ask questions if they do not understand what they are told or what they should do.
[2023-11-10] MEDS: HYDROcodone/acetaminophen (*CRX) 5-325 MG TABLET 1 TAB PO (16:12)
[2023-11-10] MEDS: LACTATED RINGERS 1,000 ML 100 ML IV CONT (16:13)
[2023-11-10] MEDS: MORPHINE SULFATE (*CRX) 4 MG/ML INJ IV PUSH (17:57)
[2023-11-10] MEDS: TOPIRAMATE 100 MG TABLET PO (17:59)
[2023-11-10] MEDS: levETIRAcetam 500 MG TABLET 1000 MG PO (17:59)
[2023-11-10] MEDS: PROMETHAZINE HCL 25 MG/ML AMPUL 12.5 MG IV PUSH (21:01)
[2023-11-10] MEDS: TIZANIDINE HCL 4 MG TABLET 8 MG PO (21:02)
[2023-11-11] MEDS: PROMETHAZINE HCL 25 MG/ML AMPUL 12.5 MG IV PUSH ×5 (01:34→22:20)
[2023-11-11] MEDS: HYDROmorphone HCL INJ (*CRX) 1 MG/ML SYR IV PUSH ×7 (01:38→22:26)
[2023-11-11] MEDS: LACTATED RINGERS 1,000 ML 100 ML IV CONT ×2 (03:30→14:36)
[2023-11-11] MEDS: diphenhydrAMINE HCl INJ 50 MG/ML VIAL 25 MG IV PUSH (04:30)
[2023-11-11 05:49] VITALS: BP 115/88; PULSE 70; RESP 14; TEMP 36.3; O2SAT 97
[2023-11-11 07:54] LABS: Basophils Percent Auto 0.6 % (0.2-1.2); Eosinophils Absolute Auto 0.1 K/mm3 (0-0.3); Hematocrit 46.2 % (37.0-47.0); Hemoglobin 13.8 g/dL (12.0-15.0); Immature Granulocyte Absolute 0.01 K/mm3 (0.00-0.031); Immature Granulocyte Percent A 0.1 % (0-0.5); Lymphocytes Absolute Auto 2.14 K/mm3 (0.9-3.2); Lymphocytes Percent Auto 31.4 % (18.3-44.2); Mean Corpuscular HGB Conc 29.9 g/dl (32-36); Mean Corpuscular Hemoglobin 25.7 pg (26-34); Mean Corpuscular Volume 86.2 fl (80-100); Mean Platelet Volume 10.2 fl (7.4-10.4); Monocytes Absolute Auto 0.6 K/mm3 (0.1-0.6); Monocytes Percent Auto 9.2 % (2.6-8.5); Neutrophils Absolute Auto 3.9 K/mm3 (1.3-6.7); Neutrophils Percent Auto 57.7 % (45.5-73.1); Platelet Count Result 275 k/mm3 (150-375); Red Blood Count 5.36 M/mm3 (4.2-5.4); Red Cell Distribution Width 14.9 % (11.5-14.5); White Blood Count 6.8 K/mm3 (4.5-10.0)
[2023-11-11 08:12] LABS: Anion Gap 6 mmol/L (4-12); Blood Urea Nitrogen 14 mg/dL (7-17); Calcium 8.5 mg/dL (8.4-10.2); Carbon Dioxide 23 mmol/L (22-30); Chloride 108 mmol/L (98-107); Estimated CRCL calculation 88 ml/min; Estimated Glomerular Filt Rate > 60; Glucose 71 mg/dL (65-110); Sodium 137 mmol/L (137-145)
[2023-11-11] MEDS: TOPIRAMATE 100 MG TABLET PO ×2 (08:49→16:29)
[2023-11-11] MEDS: levETIRAcetam 500 MG TABLET 1000 MG PO ×2 (08:50→20:19)
--- NOTE | 2023-11-11 09:42 | PM.IMPN ---
Progress Note: A&P Assessment and Plan (1) UTI (urinary tract infection): Code(s): N39.0 - Urinary tract infection, site not specified Status: Acute (2) Seizure disorder: Code(s): G40.909 - Epilepsy, unspecified, not intractable, without status epilepticus Status: Acute Plan (1) UTI (urinary tract infection): ?Code(s): N39.0 - Urinary tract infection, site not specified ?Status:?Acute ?Assessment and Plan: - UA: cloudy, 1+ protein, 3+ blood, positive nitrates, 2+ leuks, >100 RBC and WBC, 4+ bacteria - UC obtained on 11/09 - CT abd/pelvis: no etiology for the patient's symptoms. - started on ceftriaxone on 11/09 - reviewed previous cultures: 07/02/19: klebsiella pneumoniae, resistant to ampicillin 09/01/20: klebsiella pneumoniae, resistant to ampicillin 09/13/20: normal lia - suspicion for pyelonephritis given flank pain/CVA tenderness, pain difficult to control despite 3 doses of pain medication - monitor labs 11/10: Urine culture grows Gram-negative bacilli, continue ceftriaxone today, continue lactated Ringer 100 mL/hour History of seizure Continue Keppra 100 mg q.12 hours p.o. Subjective Date/time seen: 11/11/23 09:42 Interval history: I saw and exam patient today. Patient still has back pain, patient's nausea vomiting because of pain. Patient is afebrile. Urine culture grows Gram-negative bacilli Exam Narrative: GENERAL: Pleasant, in no acute distress. Well-nourished. - EYES: EOMI. Anicteric. - HENT: Moist mucous membranes. - LUNGS: Clear to auscultation bilaterally, no wheezing, rhonchi, or rales. - CARDIOVASCULAR: Regular rate and rhythm. No murmur. No JVD. - ABDOMEN: Soft, left CVA tender and non-distended. No palpable masses. - EXTREMITIES: No edema. Peripheral pulses 2+. Non-tender. - NEUROLOGIC: No focal neurological deficits. CN II-XII grossly intact. - PSYCHIATRIC: Awake, Alert and oriented x 3. Appropriate mood and affect. - SKIN: No rashes or lesions. Warm. - LYMPH: No cervical lymphadenopathy. Objective Data Vital Signs Vital Signs: Vital Signs - 24 hr 11/10/23 11:11 11/10/23 12:01 11/10/23 12:33 Temperature 98.7 F Pulse Rate 87 Respiratory Rate 20 Blood Pressure 149/104 H 162/98 H 160/100 H Pulse Oximetry 98 96 96 Oxygen Delivery Room Air 11/10/23 13:33 11/10/23 15:38 11/10/23 18:00 Temperature 97.8 F Pulse Rate 73 Respiratory Rate 18 Blood Pressure 126/73 137/70 Pulse Oximetry 98 96 Oxygen Delivery Room Air 11/10/23 21:31 11/10/23 20:00 11/11/23 05:49 Temperature 98.1 F 97.4 F L Pulse Rate 60 70 Respiratory Rate 14 14 Blood Pressure 144/61 H 115/88 Pulse Oximetry 93 93 97 Oxygen Delivery Room Air Intake/Output Intake/Output: Intake & Output 11/08/23 11/09/23 11/10/23 11/11/23 23:59 23:59 23:59 23:59 Intake Total 460 2100 Balance 460 2100 Meds/Results Medications: Active Medications Generic Name Dose Route Start Last Admin Trade Name Freq PRN Reason Stop Dose Admin Acetaminophen 650 mg 11/10/23 13:41 Acetaminophen 325 Mg Tablet PO Q4H PRN Mild Pain (1-3) or Fever Hydrocodone Bitart/Acetaminophen 1 tab 11/10/23 13:41 11/10/23 16:12 Hydrocodone/Acetaminophen (*Crx) 5-325 Mg Tablet PO 1 tab Q4H PRN Administration Moderate Pain (4-6) Diphenhydramine HCl 25 mg 11/10/23 20:55 11/11/23 04:30 Diphenhydramine Hcl Inj 50 Mg/Ml Vial IV PUSH 25 mg ONCE PRN Administration Nausea And Vomiting Hydromorphone HCl 1 mg 11/10/23 20:55 11/11/23 08:43 Hydromorphone Hcl Inj (*Crx) 1 Mg/Ml Syr IV PUSH 1 mg Q3H PRN Administration Pain Rated 7-10 Ceftriaxone Sodium 1 gm in 50 mls @ 100 mls/hr 11/11/23 09:00 11/11/23 08:44 Rocephin 1 Gm/Ns 50 Ml IVPB 100 mls/hr Q24H DEANDRE Administration Lactated Ringer's 1,000 mls @ 100 mls/hr 11/10/23 13:45 11/11/23 03:30 Lr - Lactated Ringers Iv IV CONT 100 mls/hr .Q10H DEANDRE
[2023-11-11 10:50] LABS: Hemoglobin A1C 5.4 % (<5.7)
[2023-11-11 14:00] VITALS: BP 144/81; PULSE 77; RESP 16; TEMP 36.9; O2SAT 98
[2023-11-11] MEDS: HYDROcodone/acetaminophen (*CRX) 5-325 MG TABLET 1 TAB PO (20:20)
[2023-11-11] MEDS: TIZANIDINE HCL 4 MG TABLET 8 MG PO (20:20)
[2023-11-11 21:40] VITALS: BP 155/89; PULSE 79; RESP 13; TEMP 36.9; O2SAT 98
[2023-11-12] MEDS: ONDANSETRON INJ 4 MG/2 ML VIAL IV PUSH (01:22)
[2023-11-12] MEDS: LACTATED RINGERS 1,000 ML 100 ML IV CONT ×2 (01:22→16:28)
[2023-11-12] MEDS: PROMETHAZINE HCL 25 MG/ML AMPUL 12.5 MG IV PUSH ×4 (02:37→16:23)
[2023-11-12] MEDS: HYDROmorphone HCL INJ (*CRX) 1 MG/ML SYR IV PUSH ×5 (02:40→20:56)
[2023-11-12 05:12] VITALS: BP 128/55; PULSE 63; RESP 14; TEMP 36.5; O2SAT 96
[2023-11-12] MEDS: TOPIRAMATE 100 MG TABLET PO ×2 (08:41→16:23)
[2023-11-12] MEDS: levETIRAcetam 500 MG TABLET 1000 MG PO ×2 (08:41→20:57)
--- NOTE | 2023-11-12 10:35 | PM.IMPN ---
Progress Note: A&P Assessment and Plan (1) UTI (urinary tract infection): Code(s): N39.0 - Urinary tract infection, site not specified Status: Acute (2) Seizure disorder: Code(s): G40.909 - Epilepsy, unspecified, not intractable, without status epilepticus Status: Acute Plan (1) UTI (urinary tract infection): ?Code(s): N39.0 - Urinary tract infection, site not specified ?Status:?Acute ?Assessment and Plan: - UA: cloudy, 1+ protein, 3+ blood, positive nitrates, 2+ leuks, >100 RBC and WBC, 4+ bacteria - UC obtained on 11/09 - CT abd/pelvis: no etiology for the patient's symptoms. - started on ceftriaxone on 11/09 - reviewed previous cultures: 07/02/19: klebsiella pneumoniae, resistant to ampicillin 09/01/20: klebsiella pneumoniae, resistant to ampicillin 09/13/20: normal lia - suspicion for pyelonephritis given flank pain/CVA tenderness, pain difficult to control despite 3 doses of pain medication - monitor labs 11/10: Urine culture grows Gram-negative bacilli, continue ceftriaxone today, continue lactated Ringer 100 mL/hour 11/11: Patient still has dysuria, abdomen pain, urine culture grows Klebsiella pneumoniae continue current antibiotic today History of seizure Continue Keppra 100 mg q.12 hours p.o. Subjective Date/time seen: 11/12/23 10:35 Interval history: I saw and exam patient today. Patient still has back pain, patient's nausea vomiting because of pain. Patient is afebrile. Urine culture grows Gram-negative bacilli Exam Narrative: GENERAL: Pleasant, in no acute distress. Well-nourished. - EYES: EOMI. Anicteric. - HENT: Moist mucous membranes. - LUNGS: Clear to auscultation bilaterally, no wheezing, rhonchi, or rales. - CARDIOVASCULAR: Regular rate and rhythm. No murmur. No JVD. - ABDOMEN: Soft, left CVA tender and non-distended. No palpable masses. - EXTREMITIES: No edema. Peripheral pulses 2+. Non-tender. - NEUROLOGIC: No focal neurological deficits. CN II-XII grossly intact. - PSYCHIATRIC: Awake, Alert and oriented x 3. Appropriate mood and affect. - SKIN: No rashes or lesions. Warm. - LYMPH: No cervical lymphadenopathy. Objective Data Vital Signs Vital Signs: Vital Signs - 24 hr 11/11/23 14:00 11/11/23 21:40 11/12/23 05:12 Temperature 98.4 F 98.4 F 97.7 F Pulse Rate 77 79 63 Respiratory Rate 16 13 14 Blood Pressure 144/81 H 155/89 H 128/55 L Pulse Oximetry 98 98 96 Oxygen Delivery 11/12/23 08:00 Temperature Pulse Rate Respiratory Rate Blood Pressure Pulse Oximetry Oxygen Delivery Room Air Intake/Output Intake/Output: Intake & Output 11/09/23 11/10/23 11/11/23 11/12/23 23:59 23:59 23:59 23:59 Intake Total 460 3624 1868 Output Total 300 Balance 460 8814 1868 Meds/Results Medications: Active Medications Generic Name Dose Route Start Last Admin Trade Name Freq PRN Reason Stop Dose Admin Acetaminophen 650 mg 11/10/23 13:41 Acetaminophen 325 Mg Tablet PO Q4H PRN Mild Pain (1-3) or Fever Hydrocodone Bitart/Acetaminophen 1 tab 11/10/23 13:41 11/11/23 20:20 Hydrocodone/Acetaminophen (*Crx) 5-325 Mg Tablet PO 1 tab Q4H PRN Administration Moderate Pain (4-6) Diphenhydramine HCl 25 mg 11/10/23 20:55 11/11/23 04:30 Diphenhydramine Hcl Inj 50 Mg/Ml Vial IV PUSH 25 mg ONCE PRN Administration Nausea And Vomiting Diphenhydramine HCl 25 mg 11/12/23 05:10 Diphenhydramine Hcl Cap 25 Mg Capsule PO HS PRN Insomnia Hydromorphone HCl 1 mg 11/10/23 20:55 11/12/23 06:49 Hydromorphone Hcl Inj (*Crx) 1 Mg/Ml Syr IV PUSH 1 mg Q3H PRN Administration Pain Rated 7-10 Ceftriaxone Sodium 1 gm in 50 mls @ 100 mls/hr 11/11/23 09:00 11/12/23 08:40 Rocephin 1 Gm/Ns 50 Ml IVPB 100 mls/hr Q24H DEANDRE Administration Lactated Ringer's 1,000 mls @ 100 mls/hr 11/10/23 13:45 11/12/23 01:22 Lr - Lactated Ringers Iv IV CONT 100 mls/hr .Q10H DEANDRE
[2023-11-12 14:00] VITALS: BP 144/72; PULSE 78; RESP 16; TEMP 37.1; O2SAT 97
[2023-11-12] MEDS: PROMETHAZINE HCL 12.5 MG TABLET PO (18:04)
[2023-11-12] MEDS: HYDROcodone/acetaminophen (*CRX) 5-325 MG TABLET 1 TAB PO (19:52)
[2023-11-12] MEDS: diphenhydrAMINE HCl CAP 25 MG CAPSULE PO (20:56)
[2023-11-12] MEDS: TIZANIDINE HCL 4 MG TABLET 8 MG PO (20:57)
[2023-11-12 22:00] VITALS: BP 145/80; PULSE 91; RESP 16; TEMP 37.3; O2SAT 96
[2023-11-13] MEDS: HYDROmorphone HCL INJ (*CRX) 1 MG/ML SYR IV PUSH ×3 (01:33→08:35)
[2023-11-13] MEDS: PROMETHAZINE HCL 12.5 MG TABLET PO ×2 (01:34→04:58)
[2023-11-13 06:00] VITALS: BP 119/60; PULSE 71; RESP 14; TEMP 36.5; O2SAT 99
[2023-11-13] MEDS: AMOXICILLIN/CLAVULANATE K 875-125 MG TAB 1 TABLET PO (08:36)
[2023-11-13] MEDS: TOPIRAMATE 100 MG TABLET PO (08:36)
[2023-11-13] MEDS: levETIRAcetam 500 MG TABLET 1000 MG PO (08:36)
--- NOTE | 2023-11-13 08:37 | PM.IMPN ---
Progress Note: A&P Assessment and Plan (1) UTI (urinary tract infection): Code(s): N39.0 - Urinary tract infection, site not specified Status: Acute (2) Seizure disorder: Code(s): G40.909 - Epilepsy, unspecified, not intractable, without status epilepticus Status: Acute Plan (1) UTI (urinary tract infection): ?Code(s): N39.0 - Urinary tract infection, site not specified ?Status:?Acute ?Assessment and Plan: - UA: cloudy, 1+ protein, 3+ blood, positive nitrates, 2+ leuks, >100 RBC and WBC, 4+ bacteria - UC obtained on 11/09 - CT abd/pelvis: no etiology for the patient's symptoms. - started on ceftriaxone on 11/09 - reviewed previous cultures: 07/02/19: klebsiella pneumoniae, resistant to ampicillin 09/01/20: klebsiella pneumoniae, resistant to ampicillin 09/13/20: normal lia - suspicion for pyelonephritis given flank pain/CVA tenderness, pain difficult to control despite 3 doses of pain medication - monitor labs 11/10: Urine culture grows Gram-negative bacilli, continue ceftriaxone today, continue lactated Ringer 100 mL/hour 11/11: Patient still has dysuria, abdomen pain, urine culture grows Klebsiella pneumoniae continue current antibiotic today 11/12 c/w augmentin for 4 more days, now pt is afeb, BP stable History of seizure Continue Keppra 100 mg q.12 hours p.o. Subjective Date/time seen: 11/13/23 08:37 Interval history: I saw and exam patient today. Patient still has back pain, feels better. Patient is afebrile. Urine culture grows Klebsiella pneumonia pansenstive Exam Narrative: GENERAL: Pleasant, in no acute distress. Well-nourished. - EYES: EOMI. Anicteric. - HENT: Moist mucous membranes. - LUNGS: Clear to auscultation bilaterally, no wheezing, rhonchi, or rales. - CARDIOVASCULAR: Regular rate and rhythm. No murmur. No JVD. - ABDOMEN: Soft, left CVA tender, improves and non-distended. No palpable masses. - EXTREMITIES: No edema. Peripheral pulses 2+. Non-tender. - NEUROLOGIC: No focal neurological deficits. CN II-XII grossly intact. - PSYCHIATRIC: Awake, Alert and oriented x 3. Appropriate mood and affect. - SKIN: No rashes or lesions. Warm. - LYMPH: No cervical lymphadenopathy. Objective Data Vital Signs Vital Signs: Vital Signs - 24 hr 11/12/23 14:00 11/12/23 20:00 11/12/23 22:00 Temperature 98.7 F 99.2 F Pulse Rate 78 91 Respiratory Rate 16 16 Blood Pressure 144/72 H 145/80 H Pulse Oximetry 97 96 Oxygen Delivery Room Air 11/13/23 06:00 Temperature 97.7 F Pulse Rate 71 Respiratory Rate 14 Blood Pressure 119/60 Pulse Oximetry 99 Oxygen Delivery Intake/Output Intake/Output: Intake & Output 11/10/23 11/11/23 11/12/23 11/13/23 23:59 23:59 23:59 23:59 Intake Total 460 3624 3418 Output Total 300 Balance 460 8454 3418 Meds/Results Medications: Active Medications Generic Name Dose Route Start Last Admin Trade Name Freq PRN Reason Stop Dose Admin Acetaminophen 650 mg 11/10/23 13:41 Acetaminophen 325 Mg Tablet PO Q4H PRN Mild Pain (1-3) or Fever Hydrocodone Bitart/Acetaminophen 1 tab 11/10/23 13:41 11/12/23 19:52 Hydrocodone/Acetaminophen (*Crx) 5-325 Mg Tablet PO 1 tab Q4H PRN Administration Moderate Pain (4-6) Amoxicillin/Clavulanate Potassium 1 tablet 11/13/23 09:00 11/13/23 08:36 Amoxicillin/Clavulanate K 875-125 Mg Tab PO 11/16/23 21:01 1 tablet Q12HR DEANDRE Administration Diphenhydramine HCl 25 mg 11/10/23 20:55 11/11/23 04:30 Diphenhydramine Hcl Inj 50 Mg/Ml Vial IV PUSH 25 mg ONCE PRN Administration Nausea And Vomiting Diphenhydramine HCl 25 mg 11/12/23 05:10 11/12/23 20:56 Diphenhydramine Hcl Cap 25 Mg Capsule PO 25 mg HS PRN Administration Insomnia Hydromorphone HCl 1 mg 11/10/23 20:55 11/13/23 08:35 Hydromorphone Hcl Inj (*Crx) 1 Mg/Ml Syr IV PUSH 1 mg Q3H PRN Administration Pain Rated 7-10 Lactated Ringer's 1,0
--- NOTE | 2023-11-13 08:47 | PM.DS ---
DS: Admitting Diagnosis Discharge Date 11/13/23 Admitting Diagnosis (1) UTI (urinary tract infection): ?Code(s): N39.0 - Urinary tract infection, site not specified ?Status:?Acute (2) Seizure disorder: ?Code(s): G40.909 - Epilepsy, unspecified, not intractable, without status epilepticus ?Status:?Acute DS: Discharge Diagnosis Discharge Diagnosis (1) UTI (urinary tract infection): Code(s): N39.0 - Urinary tract infection, site not specified Status: Acute (2) Seizure disorder: Code(s): G40.909 - Epilepsy, unspecified, not intractable, without status epilepticus Status: Acute DS: Summary Hospital Course Hospital Course: 53 y/o F presents here with left flank pain with PMH of kidney stones, urgency, and difficulty urinating with PMH of gastric bypass with reversal, epilepsy, depression, kidney stones, UTI, DDD,? SBOs, and arthritis. Patient presented here for further evaluation of left flank pain.? Patient? describes pain as sharp, with radiation into the left lower quadrant, and constant. Also having suprapubic pain that worsens with urination.? Pain has been ongoing since Wednesday, 11/04.? Put off being seen due to family/economic issues. Experiencing associated dysuria, frequency, and difficulty emptying bladder. Patient has history of kidney stones that required lithotripsy.? Also endorsing malaise and chills.? Denying fever or body aches.? Heat offers some alleviation from pain. Aggravated by urination. Initial VS at presentation: at 98.7? F, HR 87, RR 20, 149/104, 98% on RA. ED workup showed: ? No leukocytosis, no anemia, glucose 124,? and UA suggestive of UTI. CT of the abd/pelvis showed no etiology for the patient's symptoms. During hospitalization, following medical issues have been addressed (1) UTI (urinary tract infection): ?Code(s): N39.0 - Urinary tract infection, site not specified ?Status:?Acute ?Assessment and Plan: Patient has severe severe tenderness, suspecting pyelonephritis - UA: cloudy, 1+ protein, 3+ blood, positive nitrates, 2+ leuks, >100 RBC and WBC, 4+ bacteria - UC obtained on 11/09 - CT abd/pelvis: no etiology for the patient's symptoms. - started on ceftriaxone on 11/09 - reviewed previous cultures: 07/02/19: klebsiella pneumoniae, resistant to ampicillin 09/01/20: klebsiella pneumoniae, resistant to ampicillin 09/13/20: normal lia - suspicion for pyelonephritis given flank pain/CVA tenderness, pain difficult to control despite 3 doses of pain medication - monitor labs 11/10: Urine culture grows Gram-negative bacilli, continue ceftriaxone today, continue lactated Ringer 100 mL/hour 11/11: Patient still has dysuria, abdomen pain, urine culture grows Klebsiella pneumoniae continue current antibiotic today 11/12 c/w augmentin for 4 more days, now pt is afeb, BP stable History of seizure Continue Keppra 100 mg q.12 hours p.o. Time Spent with Patient Time attestation: Total time spent providing and/or coordinating discharge services: Exam Narrative: GENERAL: Pleasant, in no acute distress. Well-nourished. - EYES: EOMI. Anicteric. - HENT: Moist mucous membranes. - LUNGS: Clear to auscultation bilaterally, no wheezing, rhonchi, or rales. - CARDIOVASCULAR: Regular rate and rhythm. No murmur. No JVD. - ABDOMEN: Soft, left CVA tender, improves and non-distended. No palpable masses. - EXTREMITIES: No edema. Peripheral pulses 2+. Non-tender. - NEUROLOGIC: No focal neurological deficits. CN II-XII grossly intact. - PSYCHIATRIC: Awake, Alert and oriented x 3. Appropriate mood and affect. - SKIN: No rashes or lesions. Warm. - LYMPH: No cervical lymphadenopathy. Discharge Plan Discharge Attending physician on discharge: Tim Minaya Discharging Clinician: Tim Minaya Anticipated Discharge Date/Time: 11/13/23 08:38 Patient Disposition: Home, Self-Care Activity: as tolerated Diet: regular Patient Instructions: Antibiotic
[2023-11-13 10:44] VITALS: O2SAT 94
== END 2023-11-13 11:55 | disposition home or self-care (01) | DRG 690 ==
LOC: ANHED 13:40 → ANH3MEDSUR 14:57
PROVIDERS: Student in an Organized Health Care Education/Training Program; Admitting Provider Family Medicine; Emergency Provider Emergency Medicine; PCP Internal Medicine; Visit Provider Hospitalist
DX: N39.0 Urinary tract infection, site not specified (principal); B96.1 Klebsiella pneumoniae [K. pneumoniae] as the cause of diseases classified elsewhere; G40.909 Epilepsy, unspecified, not intractable, without status epilepticus; F32.A Depression, unspecified; M19.90 Unspecified osteoarthritis, unspecified site; Z87.442 Personal history of urinary calculi; Z98.84 Bariatric surgery status; Z90.710 Acquired absence of both cervix and uterus; Z90.49 Acquired absence of other specified parts of digestive tract; Z96.0 Presence of urogenital implants
CPT/HCPCS: 36415; 74176; 80048; 80053; 81001; 83036; 85025; 87077; 87086; 87088; 87186; 96365; 96366; 96375; 96376; 99285; A9270; G0378; J0696; J1170; J1200; J2270; J2405; J2550; J3010; J7120

== ENCOUNTER 2024-05-11 09:45 | Emergency (ER) | payer MEDICARE, MEDICAID, SELFPAY ==
--- NOTE | ~2024-05-11 | XR_ITS ---
XR foot LT min 3V Ordering provider: Sweetie Chavez PA-C History: . pain x 2 weeks, PLANTAR SIDE OF FOOT ALONG HEEL. NKI . Comparison: None. FINDINGS: BONES: No acute fracture or dislocation. Calcaneus spur. Ossification of the insertion of the tendo Achilles. JOINT SPACES: Osteoarthritic changes of the proximal and distal interphalangeal joints. No tarsal coalition. SOFT TISSUES: Normal. IMPRESSION: No acute osseous abnormality left foot. 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
[2024-05-11 10:05] VITALS: BP 144/91; PULSE 70; RESP 16; TEMP 36.3; O2SAT 99
[2024-05-11 11:57] VITALS: BP 150/96; PULSE 75; RESP 18; TEMP 37.1; O2SAT 99
--- NOTE | 2024-05-11 12:49 | ED.EXTPRO ---
HPI - Extremity Problem General Chief complaint: Extremity Problem,Nontraumatic Stated complaint: LEFT FOOT PAIN [id number] Time Seen by Provider: 05/11/24 12:02 History of Present Illness HPI Narrative: Patient is a 53-year-old female who presents ER with pain in left foot for last 2 weeks. Worse with walking. Located over anterior medial aspect of the heel. Mild swelling. No plantar fascial tenderness. No pain noted the Achilles. Related Data Home Medications Medication Instructions Recorded Confirmed levetiracetam 1,000 mg tablet 1,000 mg PO Q12H 11/21/20 11/10/23 tizanidine 4 mg capsule 8 mg PO QHS 11/21/20 11/10/23 topiramate 100 mg tablet 100 mg PO BID 07/14/22 11/10/23 Allergies Allergy/AdvReac Type Severity Reaction Status Date / Time esomeprazole Allergy Unknown Hives Verified 11/10/23 11:03 iodine Allergy Unknown Swelling Verified 11/10/23 11:03 of Lip/Tongue/Throat ketorolac [From Toradol] Allergy Hives Verified 11/10/23 11:03 Contrast Media Allergy Unknown Swelling Uncoded 11/10/23 11:03 of Lip/Tongue/Throat Review of Systems Constitutional: Constitutional: Reports no additional constitutional complaints Musculoskeletal: Musculoskeletal: Denies back pain, Reports arthralgias, Reports joint swelling and Denies muscle cramps Integumentary/Breasts: Skin/Breast: Reports system reviewed and no additional complaints, except as docu Neurologic: Reports system reviewed and no additional complaints, except as documented [facility] Past Medical History Medical History (Updated 05/11/24 @ 12:52 by Steve Poe MD) Abnormal uterine bleeding Anxiety Arthritis Bulging disc L5-S1 DDD (degenerative disc disease) Depression Epilepsy Finger fracture Gallbladder disease Kidney stone Migraine UTI (urinary tract infection) Surgical History Surgical History H/O lithotripsy H/O resection of small bowel H/O tubal ligation H/O: hysterectomy History of back surgery History of x4 History of cholecystectomy History of gastric bypass History of urethral stent Rt History of ventral hernia repair Hx of tonsillectomy Status post right foot surgery x2 Family History Family History Mother Hypertension Father Family history of chronic obstructive pulmonary disease, Onset Age: 71 Family history of diabetes mellitus in first degree relative Patient's father is Social History Social History (Updated 07/15/22 @ 00:51 by Polina Banerjee PA-C) Social History: Surrogate medical decision maker: Jonathan Golden, spouse. Code status: full code. Smoking status: Never smoker Alcohol intake: never Substance use: never Substance use type: marijuana Do You Feel Safe in your Home?: Yes Lack of Transportation: No Lack of Food: Never True Current Housing: I Have Housing Concerned About Future Housing: No Difficulty Paying Gas/Electric Bills: No Difficulty Paying for Meds: No Currently Unemployed: No Education: Trade/Vocational Certificate Difficulty w/ Childcare or Family Care: No Additional living arrangements comments: The patient lives with her and 9-year-old son in [place]. Additional occupation/education comments: Disabled. Spiritual care concerns: No Exam Narrative: GENERAL: Well-appearing, well-nourished, and in no acute distress. HEAD: Normocephalic, atraumatic. EXTREMITIES: Normal range of motion. No edema. Mild swelling left heel anterior/medial aspect, no plantar fascial pain or discomfort at the achilles. NO 5th metatarsal pain. SKIN: Warm, dry, no rash. NEURO: Alert and oriented x3. PSYCH: Normal mood and affect. Course Course Emergency Course: May be experiencing heel pain syndrome. Discussed taking low-dose anti-inflammatory since she tends to get GI side effects.
[2024-05-11 13:15] VITALS: BP 155/82; PULSE 72; RESP 17; TEMP 36.6; O2SAT 99
== END 2024-05-11 13:18 | disposition home or self-care (01) ==
PROVIDERS: Emergency Provider Emergency Medicine; PCP Internal Medicine
DX: M79.672 Pain in left foot (principal); F41.8 Other specified anxiety disorders; G40.909 Epilepsy, unspecified, not intractable, without status epilepticus; Z90.710 Acquired absence of both cervix and uterus; Z98.84 Bariatric surgery status
CPT/HCPCS: 73630; 99283

== ENCOUNTER 2024-05-30 10:26 | Outpatient (CLI) | payer MEDICARE, MEDICAID, SELFPAY ==
[2024-05-30 11:58] LABS: Alanine Aminotransferase 27 U/L (6-35); Albumin Level 4.1 g/dL (3.5-5.1); Alkaline Phosphatase 128 U/L (38-126); Anion Gap 7 mmol/L (4-12); Aspartate Amino Transferase 31 U/L (14-36); Bilirubin,Total 0.5 mg/dL (0.2-1.3); Blood Urea Nitrogen 13 mg/dL (7-17); Calcium 9.1 mg/dL (8.4-10.2); Carbon Dioxide 27 mmol/L (22-30); Chloride 104 mmol/L (98-107); Cholesterol 225 mg/dL (0-200); Estimated Glomerular Filt Rate > 60; Glucose 81 mg/dL (65-110); HDL Direct 86 mg/dL; Magnesium 1.8 mg/dL (1.6-2.3); Phosphorus 3.5 mg/dL (2.5-4.5); Sodium 138 mmol/L (137-145); Triglycerides 151 mg/dL (<150)
[2024-05-30 12:04] LABS: Parathyroid Intact 49.4 pg/mL (14.5-75.2)
[2024-05-30 12:05] LABS: Hemoglobin A1C 5.5 % (<5.7)
[2024-05-30 12:09] LABS: LDL Cholesterol Direct 91 mg/dL
[2024-05-30 12:25] LABS: Basophils Absolute Auto 0.1 K/mm3 (0.0-0.1); Basophils Percent Auto 0.8 % (0.2-1.2); Eosinophils Absolute Auto 0.1 K/mm3 (0-0.3); Eosinophils Percent Auto 1.2 % (0-4.4); Hematocrit 43.4 % (37.0-47.0); Immature Granulocyte Absolute 0.03 K/mm3 (0.00-0.031); Immature Granulocyte Percent A 0.4 % (0-0.5); Lymphocytes Absolute Auto 2.46 K/mm3 (0.9-3.2); Mean Corpuscular HGB Conc 32.3 g/dl (32-36); Mean Corpuscular Hemoglobin 26.4 pg (26-34); Mean Corpuscular Volume 81.7 fl (80-100); Mean Platelet Volume 11.3 fl (7.4-10.4); Monocytes Absolute Auto 0.6 K/mm3 (0.1-0.6); Monocytes Percent Auto 7.5 % (2.6-8.5); Neutrophils Absolute Auto 4.3 K/mm3 (1.3-6.7); Neutrophils Percent Auto 57.1 % (45.5-73.1); Platelet Count Result 220 k/mm3 (150-375); Red Blood Count 5.31 M/mm3 (4.2-5.4); Red Cell Distribution Width 14.7 % (11.5-14.5); White Blood Count 7.5 K/mm3 (4.5-10.0)
[2024-05-30 12:41] LABS: Iron 76 ug/dL (37-170)
[2024-05-30 12:51] LABS: Percent Iron Saturation 20 % (20-50)
[2024-05-30 12:58] LABS: Folic Acid 11.1 ng/mL (2.76->20)
[2024-05-30 13:12] LABS: Vitamin D 25 Hydroxy 20.8 ng/mL
[2024-05-30 13:19] LABS: Valproic Acid < 10.0 ug/mL (50-120)
[2024-05-30 13:25] LABS: Thyroid Stimulating Hormone Reflex 0.976 uIU/mL (0.465-4.68)
== END 2024-05-30 10:27 | disposition home or self-care (01) ==
PROVIDERS: PCP Internal Medicine; Visit Provider Internal Medicine
DX: D50.9 Iron deficiency anemia, unspecified (principal); R53.82 Chronic fatigue, unspecified; E21.3 Hyperparathyroidism, unspecified; E88.810 Metabolic syndrome; G40.909 Epilepsy, unspecified, not intractable, without status epilepticus; E55.9 Vitamin D deficiency, unspecified; I10 Essential (primary) hypertension; E04.2 Nontoxic multinodular goiter
CPT/HCPCS: 36415; 80053; 80061; 80164; 82306; 82607; 82746; 83036; 83540; 83550; 83735; 83970; 84100; 84443; 85025

== ENCOUNTER 2024-06-05 11:13 | Emergency (ER) | payer MEDICARE, MEDICAID, SELFPAY ==
--- NOTE | ~2024-06-05 | CT_ITS ---
Non-contrast CT scan of the Abdomen and Pelvis Clinical indication: Flank pain Technique: 2.5 mm axial scans were obtained through the abdomen and pelvis without intravenous or or al contrast. Dose reduction technique was used on this scan by utilizing automated exposure control a nd iterative reconstruction technique. The dose-length product (DLP) was 1382.34 mGy-cm. COMPARISON: 11/10/2023 Findings: Images through the lung bases reveal no abnormalities. 3 mm nonobstructing right renal stone present. Punctate nonobstructing left renal stones present. No ureteral stone or hydronephrosis on either side. The liver, spleen, pancreas, and adrenals appear normal. Cholecystectomy clips are present. There is no aortic aneurysm. There is no evidence of bowel obstruction. Images through the pelvis were performed. There is no evidence of ascites or lymphadenopathy. Urinary bladder unremarkable. No pelvic mass seen. Impression: Small bilateral nonobstructing renal stones, as above. Reviewed, dictated and finalized at [facility]. Impression: Small bilateral nonobstructing renal stones, as above.
[2024-06-05 11:21] VITALS: BP 163/110; PULSE 125; RESP 18; TEMP 36.8; O2SAT 98
[2024-06-05] MEDS: ONDANSETRON INJ 4 MG/2 ML VIAL IV PUSH (11:56)
[2024-06-05] MEDS: MORPHINE SULFATE (*CRX) 4 MG/ML INJ IV PUSH (12:35)
[2024-06-05 12:36] LABS: Basophils Percent Auto 0.4 % (0.2-1.2); Eosinophils Percent Auto 0.4 % (0-4.4); Hematocrit 47.2 % (37.0-47.0); Hemoglobin 14.9 g/dL (12.0-15.0); Immature Granulocyte Absolute 0.02 K/mm3 (0.00-0.031); Immature Granulocyte Percent A 0.3 % (0-0.5); Lymphocytes Absolute Auto 2.04 K/mm3 (0.9-3.2); Lymphocytes Percent Auto 29.2 % (18.3-44.2); Mean Corpuscular HGB Conc 31.6 g/dl (32-36); Mean Corpuscular Hemoglobin 25.7 pg (26-34); Mean Corpuscular Volume 81.4 fl (80-100); Mean Platelet Volume 9.8 fl (7.4-10.4); Monocytes Absolute Auto 0.5 K/mm3 (0.1-0.6); Monocytes Percent Auto 6.7 % (2.6-8.5); Neutrophils Absolute Auto 4.4 K/mm3 (1.3-6.7); Platelet Count Result 284 k/mm3 (150-375); Red Cell Distribution Width 14.4 % (11.5-14.5)
[2024-06-05 12:44] LABS: Alanine Aminotransferase 27 U/L (6-35); Albumin Level 4.5 g/dL (3.5-5.1); Alkaline Phosphatase 116 U/L (38-126); Anion Gap 12 mmol/L (4-12); Aspartate Amino Transferase 30 U/L (14-36); Blood Urea Nitrogen 16 mg/dL (7-17); Calcium 9.3 mg/dL (8.4-10.2); Carbon Dioxide 17 mmol/L (22-30); Chloride 110 mmol/L (98-107); Estimated CRCL calculation 80 ml/min; Estimated Glomerular Filt Rate > 60; Glucose 86 mg/dL (65-110); Lipase 44 U/L (23-300); Potassium 4.1 mmol/L (3.4-5.0); Sodium 139 mmol/L (137-145)
[2024-06-05 13:07] LABS: Add Urine Microscopic? YES; Appearance Urine Cloudy (Clear); Bacteria Urine 4+ /hpf; Bilirubin Urine Negative (Negative); Blood Urine 3+ (Negative); Color Urine Dark Yellow (Yellow); Glucose Urine UA Negative (Negative); Ketones Urine 1+ mg/dL (Negative); Leukocyte Esterase Ur 2+ LEU/UL (Negative); Need Manual Microscopic Reviewed; Nitrate Urine Negative (Negative); Non Pathogenic Casts 0-2; Protein Urine Trace mg/dL (Negative); RBC Urine >100 /hpf (0-2); Specific Grav Ur 1.029 (1.001-1.035); Squamous Epithelial Cell Urine Many /hpf (Few); WBC Urine 51-100 /hpf (0-3)
[2024-06-05] MEDS: PROMETHAZINE HCL 25 MG/ML AMPUL 12.5 MG IV PUSH (13:27)
[2024-06-05 14:36] VITALS: BP 121/97; PULSE 74; RESP 18; O2SAT 94
--- NOTE | 2024-06-05 14:37 | ED.ABDPAIN ---
HPI - Abdominal Pain General Chief Complaint: Abdominal Pain Stated Complaint: nausea, vomiting, kidney stone Time Seen by Provider: 06/05/24 12:00 History of Present Illness HPI narrative: Patient is a 54-year-old female who presents ER with nausea vomiting as well as urinary frequency and urgency. Has history of kidney stones and is concerned she may be passing 1. Left side and radiates to the back. No fevers or chills or sweats. No alleviating factors. Related Data Home Medications Medication Instructions Recorded Confirmed levetiracetam 1,000 mg tablet 1,000 mg PO Q12H 11/21/20 11/10/23 tizanidine 4 mg capsule 8 mg PO QHS 11/21/20 11/10/23 topiramate 100 mg tablet 100 mg PO BID 07/14/22 11/10/23 Allergies Allergy/AdvReac Type Severity Reaction Status Date / Time esomeprazole Allergy Unknown Hives Verified 06/05/24 11:14 iodine Allergy Unknown Swelling Verified 06/05/24 11:14 of Lip/Tongue/Throat ketorolac [From Toradol] Allergy Hives Verified 06/05/24 11:14 Contrast Media Allergy Unknown Swelling Uncoded 06/05/24 11:14 of Lip/Tongue/Throat PMFSH Past Medical History Medical History (Updated 06/05/24 @ 14:38 by Steve Poe MD) Abnormal uterine bleeding Anxiety Arthritis Bulging disc L5-S1 DDD (degenerative disc disease) Depression Epilepsy Finger fracture Gallbladder disease Kidney stone Migraine UTI (urinary tract infection) Surgical History Surgical History H/O lithotripsy H/O resection of small bowel H/O tubal ligation H/O: hysterectomy History of back surgery History of x4 History of cholecystectomy History of gastric bypass History of urethral stent Rt History of ventral hernia repair Hx of tonsillectomy Status post right foot surgery x2 Family History Family History Mother Hypertension Father Family history of chronic obstructive pulmonary disease, Onset Age: 71 Family history of diabetes mellitus in first degree relative Patient's father is Social History Social History (Updated 07/15/22 @ 00:51 by Polina Banerjee PA-C) Social History: Surrogate medical decision maker: Jonathan Golden, spouse. Code status: full code. Smoking status: Never smoker Alcohol intake: never Substance use: never Substance use type: marijuana Do You Feel Safe in your Home?: Yes Lack of Transportation: No Lack of Food: Never True Current Housing: I Have Housing Concerned About Future Housing: No Difficulty Paying Gas/Electric Bills: No Difficulty Paying for Meds: No Currently Unemployed: No Education: Trade/Vocational Certificate Difficulty w/ Childcare or Family Care: No Additional living arrangements comments: The patient lives with her and 9-year-old son in [place]. Additional occupation/education comments: Disabled. Spiritual care concerns: No Exam Narrative: GENERAL: Well-appearing, well-nourished, and in no acute distress. HEAD: Normocephalic, atraumatic. ENT: Mucous membranes moist. CHEST: Clear to auscultation. No respiratory distress. HEART: Tachycardic and regular. Normal peripheral pulses. ABDOMEN: Soft, nontender, nondistended. EXTREMITIES: Normal range of motion. No edema. SKIN: Warm, dry, no rash. NEURO: Alert and oriented x3. PSYCH: Normal mood and affect. Course Course Emergency Course: Informed of results. Morphing for pain. Previous sensitivities reviewed, start bactrim. Vital Signs Vital signs: Vital Signs Temperature 98.2 F 06/05/24 11:21 Pulse Rate 125 H 06/05/24 11:21 Respiratory Rate 18 06/05/24 11:21 Blood Pressure 163/110 H 06/05/24 11:21 Pulse Oximetry 98 06/05/24 11:21 Oxygen Delivery Room Air 06/05/24 11:21 Temperature 98.2 F 06/05/24 11:21 Pulse Rate 74 06/05/24 14:36 Respiratory Rat
[2024-06-05 14:53] VITALS: BP 137/89; PULSE 68; RESP 18; TEMP 36.2; O2SAT 98
== END 2024-06-05 14:57 | disposition home or self-care (01) ==
PROVIDERS: Emergency Medicine; Emergency Provider Emergency Medicine; PCP Internal Medicine
DX: N39.0 Urinary tract infection, site not specified (principal); F41.9 Anxiety disorder, unspecified; M19.90 Unspecified osteoarthritis, unspecified site; F32.A Depression, unspecified; G40.909 Epilepsy, unspecified, not intractable, without status epilepticus; Z87.442 Personal history of urinary calculi; Z87.440 Personal history of urinary (tract) infections
CPT/HCPCS: 36415; 74176; 80053; 81001; 83690; 85025; 87086; 96374; 96375; 99284; J2270; J2405; J2550

== ENCOUNTER 2024-06-05 22:53 | Emergency (ER) | payer MEDICARE, MEDICAID, SELFPAY ==
[2024-06-05 22:55] VITALS: BP 155/94; PULSE 100; RESP 17; TEMP 36.3; O2SAT 100
[2024-06-06] MEDS: SODIUM CHLORIDE 0.9% IV 1,000 ML 999 ML IV CONT (00:02)
[2024-06-06] MEDS: PROMETHAZINE HCL 25 MG/ML AMPUL 12.5 MG IV PUSH (00:02)
--- NOTE | 2024-06-06 00:41 | PC.NURSE ---
50 mL NS bag used to administer phenergan to pt over 15 minutes.
--- NOTE | 2024-06-06 01:00 | ED.ABDPAIN ---
HPI - Abdominal Pain General Chief Complaint: Abdominal Pain Stated Complaint: diagnosed with uti today, think they missed someth Time Seen by Provider: 06/05/24 23:27 History of Present Illness HPI narrative: Patient is a 54-year-old female who presents to the emergency department this evening complaining of nausea and vomiting. Patient was seen at our facility earlier today for flank pain and diagnosed with a urinary tract infection. CT abdomen pelvis revealed no evidence of kidney stones. Patient is convinced she has a kidney stone and that we missed it. Patient states that the reason that she came in is that she started to vomit and could not keep down the Zofran that she had at home. She denies any additional symptoms or concerns at this time. Related Data Home Medications Medication Instructions Recorded Confirmed levetiracetam 1,000 mg tablet 1,000 mg PO Q12H 11/21/20 11/10/23 tizanidine 4 mg capsule 8 mg PO QHS 11/21/20 11/10/23 topiramate 100 mg tablet 100 mg PO BID 07/14/22 11/10/23 phentermine 15 mg capsule mg 06/05/24 Allergies Allergy/AdvReac Type Severity Reaction Status Date / Time esomeprazole Allergy Unknown Hives Verified 06/05/24 23:00 iodine Allergy Unknown Swelling Verified 06/05/24 23:00 of Lip/Tongue/Throat ketorolac [From Toradol] Allergy Hives Verified 06/05/24 23:00 Contrast Media Allergy Unknown Swelling Uncoded 06/05/24 23:00 of Lip/Tongue/Throat Review of Systems Review of Systems: All systems are reviewed and are negative unless stated otherwise in the HPI. [facility] Past Medical History Medical History Abnormal uterine bleeding Anxiety Arthritis Bulging disc L5-S1 DDD (degenerative disc disease) Depression Epilepsy Finger fracture Gallbladder disease Kidney stone Migraine UTI (urinary tract infection) Surgical History Surgical History H/O lithotripsy H/O resection of small bowel H/O tubal ligation H/O: hysterectomy History of back surgery History of x4 History of cholecystectomy History of gastric bypass History of urethral stent Rt History of ventral hernia repair Hx of tonsillectomy Status post right foot surgery x2 Family History Family History Mother Hypertension Father Family history of chronic obstructive pulmonary disease, Onset Age: 71 Family history of diabetes mellitus in first degree relative Patient's father is Social History Social History Social History: Surrogate medical decision maker: Jonathan Golden, spouse. Code status: full code. Smoking status: Never smoker Alcohol intake: never Substance use: never Substance use type: marijuana Do You Feel Safe in your Home?: Yes Lack of Transportation: No Lack of Food: Never True Current Housing: I Have Housing Concerned About Future Housing: No Difficulty Paying Gas/Electric Bills: No Difficulty Paying for Meds: No Currently Unemployed: No Education: Trade/Vocational Certificate Difficulty w/ Childcare or Family Care: No Additional living arrangements comments: The patient lives with her and 9-year-old son in [place]. Additional occupation/education comments: Disabled. Spiritual care concerns: No Exam Narrative: General: Alert, awake, afebrile, in no acute distress. HEENT: PERRL, no rhinorrhea, no post nasal drip, oropharynx clear. Cardiovascular: Regular rate and rhythm, no murmurs, rubs or gallops, no peripheral edema. Respiratory: Clear to auscultation bilaterally, no tachypnea, no wheezing, no rhonchi, no rubs, no respiratory distress. Abdomen: Soft, nontender, nondistended, no rebound, no guarding, no peritoneal signs. Musculoskeletal: No joint swelling or deformi
[2024-06-06] MEDS: MORPHINE SULFATE (*CRX) 2 MG/ML INJ IV PUSH (01:06)
[2024-06-06 02:03] VITALS: BP 122/70; PULSE 68; RESP 15; O2SAT 98
== END 2024-06-06 02:04 | disposition home or self-care (01) ==
PROVIDERS: Emergency Provider Emergency Medicine; PCP Internal Medicine
DX: N39.0 Urinary tract infection, site not specified (principal); R11.2 Nausea with vomiting, unspecified; F41.9 Anxiety disorder, unspecified; M19.90 Unspecified osteoarthritis, unspecified site; F32.A Depression, unspecified; G40.909 Epilepsy, unspecified, not intractable, without status epilepticus; Z87.442 Personal history of urinary calculi; Z87.440 Personal history of urinary (tract) infections
CPT/HCPCS: 96365; 96375; 99284; J0696; J2270; J2550; J7030

== ENCOUNTER 2024-07-11 21:28 | Inpatient (IN) | payer MEDICARE, MEDICAID, SELFPAY ==
--- NOTE | ~2024-07-11 | CT_ITS ---
EXAMINATION: CT abdomen pelvis wo con DATE: 07/12/2024 02:23 INDICATION: Flank pain. TECHNIQUE: Computed tomography (CT) of the abdomen and pelvis was performed without intravenous contr ast. Automated exposure control and iterative reconstruction technique were employed. The dose-length product was 567.52 mGy-cm. COMPARISON: CT abdomen and pelvis 06/05/2024 FINDINGS: The visualized portions of the lung bases are clear without pneumonia or pleural effusion. The heart size is normal. No pericardial effusion. Left hepatic lobe is small. There are changes of c holecystectomy. The spleen, pancreas, adrenal glands, and left kidney are normal. There is a 4 mm sto ne in right kidney. There are no dilated loops of bowel. The appendix is normal. There are surgical c hanges in the stomach. There are no pathologically enlarged lymph nodes. There is no free intraperito lety fluid. There is moderate thoracic spondylosis and severe lumbar spondylosis. IMPRESSION: 1. 4 mm nonobstructing right kidney stone. 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 OR IN CHIEF
--- NOTE | ~2024-07-11 | US_ITS ---
EXAMINATION: US venous doppler UE RT DATE: 07/18/2024 08:28 INDICATION: Right upper limb pain and swelling. TECHNIQUE: Grayscale ultrasound images without and with compression and Doppler ultrasound images of the right upper extremity veins were obtained. COMPARISON: None. FINDINGS: The visualized portions of the right internal jugular vein, subclavian vein, cephalic vein, radial ve in, and ulnar vein are patent. There is thrombus in the right axillary, brachial, and basilic veins. In the right thyroid lobe, there is a 2.4 cm solid, hypoechoic, wider than tall nodule with smooth ma rgin and macrocalcifications (TI-RADS TR4). In the right thyroid lobe, there is a 2.6 cm solid, hypoe choic, wider than tall nodule with ill-defined margin without echogenic foci (TR4). IMPRESSION: 1. Deep vein thrombosis involving the right axillary and brachial veins. 2. Superficial vein thrombosis involving right basilic vein. 3. Multinodular goiter. Ultrasound-guided fine-needle aspiration of 2 nodules is recommended if not p reviously performed. 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 T TURNER IMPRESSION: 1. Deep vein thrombosis involving the right axillary and brachial veins. 2. Superficial vein thrombosis involving right basilic vein. 3. Multinodular goiter. Ultrasound-guided fine-needle aspiration of 2 nodules i s recommended if not previously performed.
--- NOTE | ~2024-07-11 | US_ITS ---
EXAMINATION: US renal BI DATE: 07/17/2024 12:13 INDICATION: Right flank pain TECHNIQUE: Multiple ultrasound grayscale images of the kidneys were obtained. COMPARISON: CT dated 07/12/2024 FINDINGS: The right kidney measures 10.2 x 4.5 x 4.6 cm. The left kidney measures 12.5 x 4.8 x 4.4 cm. The kidn eys demonstrate normal echogenicity. 1.1 cm anechoic cyst at the mid left kidney. There is no hydrone phrosis in either kidney. No stones identified. The bladder appears normal but is incompletely diste nded which mildly limits evaluation. IMPRESSION: 1. Normal kidneys without hydronephrosis. 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 CULAR SPECTROSCOPIST
[2024-07-11 21:40] VITALS: BP 144/108; PULSE 92; RESP 18; TEMP 36.2; O2SAT 100
[2024-07-11 21:52] LABS: Add Urine Microscopic? YES; Appearance Urine Cloudy (Clear); Bacteria Urine 1+ /hpf; Bilirubin Urine Negative (Negative); Blood Urine Negative (Negative); Color Urine Yellow (Yellow); Glucose Urine UA Negative (Negative); Ketones Urine 1+ mg/dL (Negative); Leukocyte Esterase Ur 2+ LEU/UL (Negative); Nitrate Urine Negative (Negative); Non Pathogenic Casts 0-2; Protein Urine Negative (Negative); Specific Grav Ur 1.029 (1.001-1.035); Squamous Epithelial Cell Urine Few /hpf (Few); WBC Urine 51-100 /hpf (0-3); pH Urine 5.5 (5.0-9.0)
[2024-07-12] VITALS (41 sets, daily range): BP systolic 103–147; BP diastolic 46–98; PULSE 75–152; RESP 7–33; TEMP 36.2–37; O2SAT 90–100; BMI 34.4
[2024-07-12] MEDS: ONDANSETRON INJ 4 MG/2 ML VIAL IV PUSH ×4 (00:24→05:07)
[2024-07-12 00:44] LABS: Basophils Absolute Auto 0.1 K/mm3 (0.0-0.1); Basophils Percent Auto 0.8 % (0.2-1.2); Eosinophils Absolute Auto 0.1 K/mm3 (0-0.3); Eosinophils Percent Auto 0.8 % (0-4.4); Hematocrit 48.6 % (37.0-47.0); Hemoglobin 15.5 g/dL (12.0-15.0); Immature Granulocyte Absolute 0.02 K/mm3 (0.00-0.031); Immature Granulocyte Percent A 0.3 % (0-0.5); Lymphocytes Percent Auto 43.4 % (18.3-44.2); Mean Corpuscular HGB Conc 31.9 g/dl (32-36); Mean Corpuscular Hemoglobin 25.8 pg (26-34); Monocytes Absolute Auto 0.5 K/mm3 (0.1-0.6); Monocytes Percent Auto 8.1 % (2.6-8.5); Neutrophils Percent Auto 46.6 % (45.5-73.1); Platelet Count Result 278 k/mm3 (150-375); Red Cell Distribution Width 14.7 % (11.5-14.5); White Blood Count 6.5 K/mm3 (4.5-10.0)
[2024-07-12 01:09] LABS: Alanine Aminotransferase 65 U/L (6-35); Albumin Level 4.7 g/dL (3.5-5.1); Alkaline Phosphatase 127 U/L (38-126); Anion Gap 10 mmol/L (4-12); Aspartate Amino Transferase 34 U/L (14-36); Bilirubin,Total 0.9 mg/dL (0.2-1.3); Blood Urea Nitrogen 15 mg/dL (7-17); Calcium 9.5 mg/dL (8.4-10.2); Carbon Dioxide 21 mmol/L (22-30); Chloride 109 mmol/L (98-107); Estimated CRCL calculation 76 ml/min; Estimated Glomerular Filt Rate > 60; Glucose 96 mg/dL (65-110); Lipase 51 U/L (23-300); Sodium 140 mmol/L (137-145)
--- NOTE | 2024-07-12 01:14 | PC.NURSE ---
EDP Dr. Elvin SANDERS 4mg IVP Zofran and 4mg IVP Morphine.
[2024-07-12] MEDS: MORPHINE SULFATE (*CRX) 4 MG/ML INJ IV PUSH ×7 (01:16→21:42)
[2024-07-12] MEDS: HYDROmorphone HCL INJ (*CRX) 1 MG/ML SYR IV PUSH ×2 (02:10→03:47)
--- NOTE | 2024-07-12 03:15 | ED_ITS ---
HPI - General Adult General Chief complaint: Urogenital-Female Stated complaint: troubles with my kidneys Time Seen by Provider: 07/12/24 01:47 History of Present Illness HPI narrative: Patient is a 54-year-old female who presents emergency department with chief complaint of back pain and urinary symptoms. The patient reports she was recently treated for UTI and completed a course of Bactrim patient reports he has continued to have urinary frequency patient reports that she continues now to have back pain patient states that she has had kidney stones before in the past and has required stents in the past. Related Data Home Medications Medication Instructions Recorded Confirmed levetiracetam 1,000 mg tablet 1,000 mg PO Q12H 11/21/20 11/10/23 tizanidine 4 mg capsule 8 mg PO QHS 11/21/20 11/10/23 topiramate 100 mg tablet 100 mg PO BID 07/14/22 11/10/23 phentermine 15 mg capsule mg 06/05/24 Allergies Allergy/AdvReac Type Severity Reaction Status Date / Time esomeprazole Allergy Unknown Hives Verified 07/11/24 21:29 iodine Allergy Unknown Swelling Verified 07/11/24 21:29 of Lip/Tongue/Throat ketorolac [From Toradol] Allergy Hives Verified 07/11/24 21:29 Contrast Media Allergy Unknown Swelling Uncoded 06/05/24 23:00 of Lip/Tongue/Throat Review of Systems Review of Systems: A 10 system review of systems was completed on the patient and is negative except for what is stated in the HPI. Nursing and ancillary documentation was reviewed. [facility] Past Medical History Medical History Abnormal uterine bleeding Anxiety Arthritis Bulging disc L5-S1 DDD (degenerative disc disease) Depression Epilepsy Finger fracture Gallbladder disease Kidney stone Migraine UTI (urinary tract infection) Surgical History Surgical History H/O lithotripsy H/O resection of small bowel H/O tubal ligation H/O: hysterectomy History of back surgery History of x4 History of cholecystectomy History of gastric bypass History of urethral stent Rt History of ventral hernia repair Hx of tonsillectomy Status post right foot surgery x2 Family History Family History Mother Hypertension Father Family history of chronic obstructive pulmonary disease, Onset Age: 71 Family history of diabetes mellitus in first degree relative Patient's father is Social History Social History Social History: Surrogate medical decision maker: Jonathan Golden, spouse. Code status: full code. Smoking status: Never smoker Alcohol intake: never Substance use: never Substance use type: marijuana Do You Feel Safe in your Home?: Yes Lack of Transportation: No Lack of Food: Never True Current Housing: I Have Housing Concerned About Future Housing: No Difficulty Paying Gas/Electric Bills: No Difficulty Paying for Meds: No Currently Unemployed: No Education: Trade/Vocational Certificate Difficulty w/ Childcare or Family Care: No Additional living arrangements comments: The patient lives with her and 9-year-old son in [place]. Additional occupation/education comments: Disabled. Spiritual care concerns: No Exam Narrative: GENERAL: Well-appearing, well-nourished, and in moderate acute pain distress. HEAD: Normocephalic, atraumatic. EYES: PERRLA and EOMI. ENT: Nares clear, no rhinorrhea or epistaxis. Mucous membranes moist. NECK: Supple. CHEST: Clear to auscultation. No respiratory distress. HEART: Regular rate and rhythm. No murmur heard. Normal peripheral pulses. ABDOMEN: Soft, nontender, nondistended, normal active bowel sounds. EXTREMITIES: Normal range of motion. No edema. SKIN: Warm, dry, no rash. NEURO: No focal deficits. Alert and oriented x3. PSYCH: Normal mood and affect. Course Vital Signs Vital signs: Vital Signs Temperature 36.2 C L 07/11/24 21:40 Pulse Rate 92 07/11/24 21:40 Respiratory Rate 18 07/11/24 21:40 Blood Pressure 144/108 H 07/11/24 21:40 Pulse Oximetry 100 07/11/24 21:40 Temperature 36.2 C L 07/11/24 21:40 Pulse Rate 95 07/12/24 03:51 Respiratory Rate 20 07/12/24 03:51 Blood Pressure 122/93 H 07/12/24 03:51 Pulse Oximetry 98 07/12/24 03:51 Oxygen Delivery Room Air 07/12/24 00:30 Medical Decision Making [facility] Narrative Medical decision making narrative: Differential diagnosis includes ureterolithiasis, pyelonephritis, Laboratory studies were obtained on the patient showed a white count of 6.5 electrolytes are within normal limits urinalysis showed 51-100 white blood cells in the urine 2+ leukocyte esterase 1+ bacteria CT scan of the abdomen pelvis showed no evidence of ureterolithiasis or acute abnormality. Patient given a dose Rocephin in the emergency department the patient be discharged home on cefdinir After receiving the Rocephin in the emergency department the patient started to vomit again and despite multiple antiemetics still having episodes of vomiting. The case will be discussed with the hospitalist for admission for observation and hydration Vital Signs Vital Signs: Vital Signs Temperature 36.2 C L 07/11/24 21:40 Pulse Rate 92 07/11/24 21:40 Respiratory Rate 18 07/11/24 21:40 Blood Pressure 144/108 H 07/11/24 21:40 Pulse Oximetry 100 07/11/24 21:40 Temperature 36.2 C L 07/11/24 21:40 Pulse Rate 95 07/12/24 03:51 Respiratory Rate 20 07/12/24 03:51 Blood Pressure 122/93 H 07/12/24 03:51 Pulse Oximetry 98 07/12/24 03:51 Oxygen Delivery Room Air 07/12/24 00:30 Lab Data 07/12/24 00:22 07/12/24 00:22 Labs: Lab Results 07/11/24 07/12/24 Range/Units 21:42 00:22 WBC 6.5 (4.5-10.0) K/mm3 RBC 6.00 H (4.2-5.4) M/mm3 Hgb 15.5 H (12.0-15.0) g/dL Hct 48.6 H (37.0-47.0) % MCV 81.0 (80-100) fl MCH 25.8 L (26-34) pg MCHC 31.9 L (32-36) g/dl RDW 14.7 H (11.5-14.5) % Plt Count 278 (150-375) k/mm3 MPV 10.0 (7.4-10.4) fl Immature Gran % (Auto) 0.3 (0-0.5) % Neut % (Auto) 46.6 (45.5-73.1) % Lymph % (Auto) 43.4 (18.3-44.2) % [place] % (Auto) 8.1 (2.6-8.5) % Eos % (Auto) 0.8 (0-4.4) % Baso % (Auto) 0.8 (0.2-1.2) % Lymph # (Auto) 2.80 (0.9-3.2) K/mm3 [place] # (Auto) 0.5 (0.1-0.6) K/mm3 Eos # (Auto) 0.1 (0-0.3) K/mm3 Baso # (Auto) 0.1 (0.0-0.1) K/mm3 Abs Immat Gran (auto) 0.02 (0.00-0.031) K/mm3 Absolute Neuts (auto) 3.0 (1.3-6.7) K/mm3 Absolute Nucleated RBC 0.000 (0.0-0.012) K/mm3 Nucleated RBC % 0.0 (0.0-0.2) % Sodium 140 (137-145) mmol/L Potassium 4.0 (3.4-5.0) mmol/L Chloride 109 H (98-107) mmol/L Carbon Dioxide 21 L (22-30) mmol/L Anion Gap 10 (4-12) mmol/L BUN 15 (7-17) mg/dL Creatinine 0.80 (0.7-1.0) mg/dL Estim Creat Clear Calc 76 ml/min Estimated GFR > 60 (59 - ) Glucose 96 (65-110) mg/dL Calcium 9.5 (8.4-10.2) mg/dL Total Bilirubin 0.9 (0.2-1.3) mg/dL AST 34 (14-36) U/L ALT 65 H (6-35) U/L Alkaline Phosphatase 127 H (38-126) U/L Total Protein 8.0 (6.3-8.2) g/dL Albumin 4.7 (3.5-5.1) g/dL Lipase 51 (23-300) U/L Urine Color Yellow (Yellow) Urine Appearance Cloudy H (Clear) Urine pH 5.5 (5.0-9.0) Ur Specific [place] 1.029 (1.001-1.035) Urine Protein Negative (Negative) mg/dL Urine Glucose (UA) Negative (Negative) mg/dL Urine Ketones 1+ H (Negative) mg/dL Ur Blood (Man) Negative (Negative) Urine Nitrate Negative (Negative) Urine Bilirubin Negative (Negative) Urine Urobilinogen 1.0 (<2.0) mg/dL Leukocyte Esterase Rfl 2+ H (Negative) PATRICK/UL Urine RBC 3-5 H (0-2) /hpf Urine WBC 51-100 H (0-3) /hpf Ur Squamous Epith Cells Few (Few) /hpf Urine Bacteria 1+ H /hpf Urine Casts 0-2 Discharge Plan Discharge Clinical Impression: UTI (urinary tract infection), Pyelonephritis Patient Disposition: Still a Patient Condition: Stable Instructions: Urinary Tract Infection in Women (ED), Kidney Infection (ED) Prescriptions: New cefdinir 300 mg capsule 300 mg PO Q12H 10 Days Qty: 20 0RF ondansetron 4 mg tablet,disintegrating 4 mg PO Q8H PRN (Reason: nausea and vomiting) Qty: 10 0RF No Action tizanidine 4 mg capsule 8 mg PO QHS levetiracetam 1,000 mg tablet 1,000 mg PO Q12H promethazine 25 mg Tablet 12.5 mg PO Q4H PRN (Reason: Nausea And Vomiting) Qty: 30 0RF amoxicillin-pot clavulanate 875-125 mg tablet 1 tablet PO Q12H Qty: 9 0RF hydrocodone-acetaminophen 5-325 mg Tablet 1 tablet PO Q4H PRN (Reason: Pain Rated 4-6) Qty: 14 0RF prednisone 20 mg tablet 20 mg PO DAILY Qty: 7 0RF sulfamethoxazole-trimethoprim [Bactrim DS] 800-160 mg tablet 1 tablet PO Q12H Qty: 14 0RF phentermine 15 mg capsule promethazine 25 mg tablet 25 mg PO TID PRN (Reason: nausea and vomiting) Qty: 14 0RF promethazine 25 mg suppository 25 mg RECTAL Q6H PRN (Reason: nausea and vomiting) Qty: 12 0RF topiramate 100 mg tablet 100 mg PO BID Follow-up/Referrals: Madhu Tilley MD [Primary Care Provider] - Time of Disposition: 04:41
[2024-07-12] MEDS: SODIUM CHLORIDE 0.9% IV 1,000 ML 999 ML IV CONT (05:50)
[2024-07-12] MEDS: METOCLOPRAMIDE HCL INJ 10 MG/2 ML VIAL IV PUSH (06:04)
[2024-07-12] MEDS: PROMETHAZINE HCL 25 MG/ML AMPUL 12.5 MG IV PUSH ×3 (06:36→16:14)
--- NOTE | 2024-07-12 09:00 | ADMGEN ---
This patient, Misti Golden, was admitted to 3 Med Surg Room 303-01. Patient/family oriented to hospital policies and general routines including ID bracelet, bed and alarms, visiting hours, pain management, procedures, bathroom and other care routines, personal items, smoking policy, room service/diet, and visiting hours. Information on how to activate the Rapid Response Team has been discussed. Patient/Family are encouraged to report perceived risks to care and to ask questions if they do not understand what they are told or what they should do.
--- NOTE | 2024-07-12 10:00 | PM.IMHP ---
H&P: HPI History of Present Illness Date/Time: 07/12/24 10:00 Chief Complaint: Burning urination with lower back pain for 2 days Narrative: 54 years old female was admitted through the emergency room with complaint of having burning urination lower back pain fever and chills going of the last 2 days. According the patient patient recently had similar episode and was treated with p.o. antibiotic but did not get better. Patient was admitted for failed outpatient antibiotic treatment. In the ER CT scan showed right kidney stone. No ureter dilatation. You had many bacteria. Urine culture was done and IV antibiotic was started. Patient was transferred to floor for further evaluation treatment. At present time patient is lying comfortably. Has mild back pain. Otherwise feeling better. No shortness of breath or chest pain. patient has nausea and vomiting No fever and chills. Review of Systems Review of Systems: All systems reviewed & are unremarkable except as noted in HPI and below (the history and physical examination.) [facility] Past Medical History Medical History Abnormal uterine bleeding Anxiety Arthritis Bulging disc L5-S1 DDD (degenerative disc disease) Depression Epilepsy Finger fracture Gallbladder disease Kidney stone Migraine UTI (urinary tract infection) Surgical History Surgical History H/O lithotripsy H/O resection of small bowel H/O tubal ligation H/O: hysterectomy History of back surgery History of x4 History of cholecystectomy History of gastric bypass History of urethral stent Rt History of ventral hernia repair Hx of tonsillectomy Status post right foot surgery x2 Family History Family History Mother Hypertension Father Family history of chronic obstructive pulmonary disease, Onset Age: 71 Family history of diabetes mellitus in first degree relative Patient's father is Social History Social History Social History: Surrogate medical decision maker: Jonathan Golden, spouse. Code status: full code. Smoking status: Never smoker Alcohol intake: never Substance use: never Substance use type: marijuana Do You Feel Safe in your Home?: Yes Lack of Transportation: No Lack of Food: Never True Current Housing: I Have Housing Concerned About Future Housing: No Difficulty Paying Gas/Electric Bills: No Difficulty Paying for Meds: No Currently Unemployed: No Education: Trade/Vocational Certificate Difficulty w/ Childcare or Family Care: No Additional living arrangements comments: The patient lives with her and 9-year-old son in [place]. Additional occupation/education comments: Disabled. Spiritual care concerns: No Meds Home Medications and Allergies Home Medications Medication Instructions Recorded Confirmed Type levetiracetam 1,000 mg tablet 1,000 mg PO Q12H 11/21/20 07/12/24 History tizanidine 4 mg capsule 8 mg PO QHS PRN muscle spasms 11/21/20 07/12/24 History topiramate 100 mg tablet 100 mg PO BID 07/14/22 07/12/24 History phentermine 15 mg capsule 15 mg PO DAILY 06/05/24 07/12/24 History Allergies Allergy/AdvReac Type Severity Reaction Status Date / Time esomeprazole Allergy Unknown Hives Verified 07/12/24 09:33 iodine Allergy Unknown Swelling Verified 07/12/24 09:33 of Lip/Tongue/Throat ketorolac [From Toradol] Allergy Hives Verified 07/12/24 09:33 Contrast Media Allergy Unknown Swelling Uncoded 07/12/24 09:33 of Lip/Tongue/Throat Vital Signs Vital Signs - 24 hr 07/11/24 21:40 07/12/24 00:30 07/12/24 03:51 Temperature 36.2 C L Pulse Rate 92 79 95 Respiratory Rate 18 17 20 Blood Pressure 144/108 H 145/67 H 122/93 H Pulse Oximetry 100 100 98 Oxygen Delivery Room Air 07/12/24 06:44 07/12/24 00:28 07/12/24 00:55 Temperature Pulse Rate 109 H 83 102 H Respiratory Rate 19 20 28 H Blood Pressure 147/87 H Pulse Oximetry 97 100 100 Oxygen Delivery 07/12/24 01:00 07/12/24 01:15 07/12/24 01:54 Temperature Pulse Rate 94 112 H 90 Respiratory Rate 7 L 33 H 15 Blood Pressure Pulse Oximetry 100 100 100 Oxygen Delivery 07/12/24 02:00 07/12/24 02:33 07/12/24 03:23 Temperature Pulse Rate 98 92 92 Respiratory Rate 13 14 16 Blood Pressure Pulse Oximetry 100 97 99 Oxygen Delivery 07/12/24 03:30 07/12/24 03:46 07/12/24 03:52 Temperature Pulse Rate 84 91 86 Respiratory Rate 17 15 20 Blood Pressure Pulse Oximetry 99 96 98 Oxygen Delivery 07/12/24 04:00 07/12/24 04:01 07/12/24 04:15 Temperature Pulse Rate 103 H 104 H 97 Respiratory Rate 23 H 20 27 H Blood Pressure Pulse Oximetry 98 98 96 Oxygen Delivery 07/12/24 04:16 07/12/24 04:30 07/12/24 04:31 Temperature Pulse Rate 78 91 75 Respiratory Rate 17 16 13 Blood Pressure 109/91 H 130/93 H Pulse Oximetry 97 93 96 Oxygen Delivery 07/12/24 04:45 07/12/24 05:00 07/12/24 05:01 Temperature Pulse Rate 90 152 H 141 H Respiratory Rate 24 H 25 H 28 H Blood Pressure 133/74 Pulse Oximetry 94 97 98 Oxygen Delivery 07/12/24 05:15 07/12/24 05:16 07/12/24 06:01 Temperature Pulse Rate 118 H 114 H 122 H Respiratory Rate 23 H 16 12 Blood Pressure 122/98 H Pulse Oximetry 90 94 Oxygen Delivery 07/12/24 06:15 07/12/24 06:30 07/12/24 06:43 Temperature Pulse Rate 101 H 109 H 97 Respiratory Rate 13 24 H 16 Blood Pressure 147/87 H Pulse Oximetry Oxygen Delivery 07/12/24 06:45 07/12/24 06:46 07/12/24 07:00 Temperature Pulse Rate 98 104 H 108 H Respiratory Rate 13 15 22 H Blood Pressure 133/90 Pulse Oximetry Oxygen Delivery 07/12/24 07:01 07/12/24 07:16 07/12/24 07:17 Temperature Pulse Rate 102 H 114 H 106 H Respiratory Rate 16 16 17 Blood Pressure 140/87 Pulse Oximetry Oxygen Delivery 07/12/24 07:23 07/12/24 07:32 07/12/24 07:50 Temperature Pulse Rate 90 81 91 Respiratory Rate 17 18 13 Blood Pressure 131/93 H Pulse Oximetry 97 Oxygen Delivery 07/12/24 08:28 Temperature Pulse Rate 87 Respiratory Rate 16 Blood Pressure 103/73 Pulse Oximetry 97 Oxygen Delivery Exam Narrative: [place] [address] [address] [place] [address] Emergency Room Visit Note Draft Patient: Misti Golden MR#: [id number] : 1970 Acct:[id number] Age: 54 ADM Date: 07/11/24 Loc: [facility] Attending Dr: carrei: ~ HPI - General Adult General Chief complaint: Urogenital-Female Stated complaint: troubles with my kidneys Time Seen by Provider: 07/12/24 01:47 History of Present Illness HPI narrative: Patient is a 54-year-old female who presents emergency department with chief complaint of back pain and urinary symptoms. The patient reports she was recently treated for UTI and completed a course of Bactrim patient reports he has continued to have urinary frequency patient reports that she continues now to have back pain patient states that she has had kidney stones before in the past and has required stents in the past. Related Data Home Medications Medication Instructions Recorded Confirmed levetiracetam 1,00 0 mg tablet 1,000 mg PO Q12H 11/21/20 11/10/23 tizanidine 4 mg ca psule 8 mg PO QHS 11/21/20 11/10/23 topiramate 100 mg tablet 100 mg PO BID 07/14/22 11/10/23 phentermine 15 mg capsule mg 06/05/24 Allergies Allergy/AdvReac Type Severity Reaction Status Date / Time esomeprazole Allergy Unknown Hives Verified 07/11/24 21:29 iodine Allergy Unknown Swelling Verified 07/11/24 21:29 of Lip/Tongue/Throat ketorolac [From To radol] Allergy Hives Verified 07/11/24 21:29 Contrast Media Allergy Unknown Swelling Uncoded 06/05/24 23:00 of Lip/Tongue/Throat Review of Systems Review of Systems: A 10 system revie w of systems was c ompleted on the pa tient and is negat fredrick except for wha t is stated in the HPI. Nursing and ancillary documen tation was román blas [facility] Past Medical History Medical History Abnormal uterine bleeding Anxiety Arthritis Bulging disc L5-S1DDD (degenerative disc disease) Depression Epilepsy Finger fracture Gallbladder disease Kidney stone Migraine UTI (urinary tract infection) Surgical History Surgical History H/O lithotripsy H/O resection of small bowel H/O tubal ligation H/O: hysterectomy History of back surgery History of [id number] of cholecystectomy History of gastric bypass History of urethral stent RtHistory of ventral hernia repair Hx of tonsillectomy Status post right foot surgery x2 Family History Family History Mother HypertensionFather Family history of chronic obstructive pulmonary disease, Onset Age: 71 Family history of diabetes mellitus in first degree relative Patient's father is Social History Social History Social History: Surrogate medical decision maker: Jonathan Golden, spouse. Code status: full code. Smoking status: Never smoker Alcohol intake: never Substance use: never Substance use type: marijuana Do You Feel Safe in your Home?: Yes Lack of Transportation: No Lack of Food: Never True Current Housing: I Have Housing Concerned About Future Housing: No Difficulty Paying Gas/Electric Bills: No Difficulty Paying for Meds: No Currently Unemployed: No Education: Trade/Vocational Certificate Difficulty w/ Childcare or Family Care: No Additional living arrangements comments: The patient lives with her and 9-year-old son in [place]. Additional occupation/education comments: Disabled. Spiritual care concerns: No Exam Narrative: GENERAL: Well-jad earing, well-mitch shed, and in moder ate acute pain dis tress. HEAD: Normo cephalic, atraumat ic. EYES: PERRLA a nd EOMI. ENT: Nare s clear, no rhinor sushil or epistaxis. Mucous membranes moist. NECK: Supp le. CHEST: Clear t o auscultation. N o respiratory dist ress. HEART: Regul ar rate and rhythm . No murmur heard . Normal peripher al pulses. ABDOMEN : Soft, mild right CVA tenderness P r, nondistended, n ormal active bowel sounds. EXTREMITI ES: Normal range o f motion. No donna a. SKIN: Warm, dry , no rash. NEURO: No focal deficits. Alert and orient ed x3. PSYCH: Norm al mood and affect . H&P: Results Labs Labs: Short CBC 07/12/24 Range/Units 00:22 WBC 6.5 (4.5-10.0) K/mm3 Hgb 15.5 H (12.0-15.0) g/dL Hct 48.6 H (37.0-47.0) % Plt Count 278 (150-375) k/mm3 BMP 07/12/24 00:22 Sodium 140 Potassium 4.0 Chloride 109 H Carbon Dioxide 21 L BUN 15 Creatinine 0.80 Glucose 96 Calcium 9.5 Liver Function 07/12/24 Range/Units 00:22 Total Bilirubin 0.9 (0.2-1.3) mg/dL AST 34 (14-36) U/L ALT 65 H (6-35) U/L Alkaline Phosphatase 127 H (38-126) U/L Albumin 4.7 (3.5-5.1) g/dL Urine 07/11/24 Range/Units 21:42 Urine Color Yellow (Yellow) Urine Appearance Cloudy H (Clear) Urine pH 5.5 (5.0-9.0) Ur Specific Varney 1.029 (1.001-1.035) Urine Protein Negative (Negative) mg/dL Urine Glucose (UA) Negative (Negative) mg/dL Assessment and Plan Assessment and plan (1) Pyelonephritis: Code(s): N12 - Tubulo-interstitial nephritis, not specified as acute or chronic Status: Acute Assessment and Plan: Urine culture and IV antibiotics. (2) Nausea & vomiting: Qualifiers: Vomiting Intractability: non-intractable Vomiting type: unspecified Qualified Code(s): R11.2 - Nausea with vomiting, unspecified Code(s): R11.2 - Nausea with vomiting, unspecified Status: Inactive Assessment and Plan: IV fluids and nausea medication as needed (3) Seizure disorder: Code(s): G40.909 - Epilepsy, unspecified, not intractable, without status epilepticus Status: Acute Assessment and Plan: Stable on current medication (4) Anxiety: Code(s): F41.9 - Anxiety disorder, unspecified Status: Acute Assessment and Plan: Stable on current medications (5) Abnormal liver function test: Code(s): R79.89 - Other specified abnormal findings of blood chemistry Status: Acute Assessment and Plan: CT scan is negative and did not show any problem with liver present time. Will repeat and monitor the. Quality VTE Prophylaxis VTE prophylaxis: pharmacologic ordered Patient will stay for more than 2 days. Patient is admitted on the regular medical floor as a full admission. Patient is full code.
[2024-07-12] MEDS: SODIUM CHLORIDE 0.9% IV 1,000 ML 500 ML IV CONT (10:25)
[2024-07-12] MEDS: SODIUM CHLORIDE 0.9% IV 1,000 ML 125 ML IV CONT ×2 (10:33→20:05)
[2024-07-12] MEDS: ENOXAPARIN 40 MG/0.4 ML SYRINGE SUB-Q (11:39)
[2024-07-12] MEDS: levETIRAcetam 1000MG/NACL100ML 1,000 MG/100 ML BAG 400 MG IVPB ×2 (11:39→20:04)
[2024-07-12] MEDS: TOPIRAMATE 100 MG TABLET PO ×2 (11:40→17:09)
--- NOTE | 2024-07-12 14:18 | PHAR ---
HOME MEDICATION: PHENTERMINE HCL 15 MG CAPSULES, TAKE 1 CAPSULE BY MOUTH DAILY, VERIFIED IN PHARMACY 07/12/24 @ 6524.
[2024-07-12] MEDS: HYDROcodone/acetaminophen (*CRX) 5-325 MG TABLET 1 TAB PO (23:00)
[2024-07-13] MEDS: PROMETHAZINE HCL 25 MG/ML AMPUL 12.5 MG IV PUSH ×3 (00:05→20:34)
[2024-07-13] MEDS: MORPHINE SULFATE (*CRX) 4 MG/ML INJ 2 MG IV PUSH ×5 (04:21→20:33)
[2024-07-13 05:04] VITALS: BP 113/64; PULSE 74; RESP 18; TEMP 36.8; O2SAT 99
[2024-07-13] MEDS: SODIUM CHLORIDE 0.9% IV 1,000 ML 125 ML IV CONT ×3 (06:26→23:34)
[2024-07-13] MEDS: HYDROcodone/acetaminophen (*CRX) 5-325 MG TABLET 1 TAB PO ×3 (06:26→23:34)
[2024-07-13 06:48] LABS: Hematocrit 43.1 % (37.0-47.0); Hemoglobin 12.8 g/dL (12.0-15.0); Immature Platelet Fraction Pct 2.6 % (0.9-11.2); Mean Corpuscular HGB Conc 29.7 g/dl (32-36); Mean Corpuscular Hemoglobin 25.5 pg (26-34); Mean Corpuscular Volume 85.9 fl (80-100); Mean Platelet Volume 10.1 fl (7.4-10.4); Platelet Count Result 130 k/mm3 (150-375); Red Blood Count 5.02 M/mm3 (4.2-5.4); Red Cell Distribution Width 14.7 % (11.5-14.5); White Blood Count 5.3 K/mm3 (4.5-10.0)
[2024-07-13 06:59] LABS: Alanine Aminotransferase 65 U/L (6-35); Albumin Level 3.5 g/dL (3.5-5.1); Alkaline Phosphatase 96 U/L (38-126); Anion Gap 7 mmol/L (4-12); Aspartate Amino Transferase 57 U/L (14-36); Bilirubin,Total 0.7 mg/dL (0.2-1.3); Blood Urea Nitrogen 6 mg/dL (7-17); Calcium 8.2 mg/dL (8.4-10.2); Carbon Dioxide 18 mmol/L (22-30); Chloride 114 mmol/L (98-107); Estimated CRCL calculation 86 ml/min; Estimated Glomerular Filt Rate > 60; Glucose 70 mg/dL (65-110); Sodium 139 mmol/L (137-145)
[2024-07-13] MEDS: levETIRAcetam 1000MG/NACL100ML 1,000 MG/100 ML BAG 400 MG IVPB ×2 (08:22→20:31)
[2024-07-13] MEDS: ENOXAPARIN 40 MG/0.4 ML SYRINGE SUB-Q (08:22)
[2024-07-13] MEDS: TOPIRAMATE 100 MG TABLET PO ×2 (08:24→18:18)
[2024-07-13] MEDS: PHENTERMINE 15 MG 15 EACH PO (08:36)
--- NOTE | 2024-07-13 09:17 | PM.IMPN ---
Progress Note: A&P Assessment and Plan (1) Pyelonephritis: Code(s): N12 - Tubulo-interstitial nephritis, not specified as acute or chronic Status: Acute Assessment and Plan: Urine culture shows patient has E coli infection. IV antibiotics changed according to the sensitivity. (2) Nausea & vomiting: Qualifiers: Vomiting Intractability: non-intractable Vomiting type: unspecified Qualified Code(s): R11.2 - Nausea with vomiting, unspecified Code(s): R11.2 - Nausea with vomiting, unspecified Status: Inactive Assessment and Plan: IV fluids and nausea medication as needed (3) Seizure disorder: Code(s): G40.909 - Epilepsy, unspecified, not intractable, without status epilepticus Status: Acute Assessment and Plan: Stable on current medication (4) Anxiety: Code(s): F41.9 - Anxiety disorder, unspecified Status: Acute Assessment and Plan: Stable on current medications (5) Abnormal liver function test: Code(s): R79.89 - Other specified abnormal findings of blood chemistry Status: Acute Assessment and Plan: CT scan is negative and did not show any problem with liver present time. Will repeat and monitor the. Subjective Date/time seen: 07/13/24 09:17 Interval history: Patient was seen during the morning rounds today. Patient still has mild nausea. Still has back pain. Also feeling slightly better than yesterday. No shortness of breath or chest pain Review of Systems Review of Systems: All systems reviewed & are unremarkable except as noted in HPI and below (the history and physical examination.) Exam Narrative: Exam Narrative: GENERAL: Well-jad earing, well-mitch shed, and in moder ate acute pain dis tress. HEAD: Normo cephalic, atraumat ic. EYES: PERRLA a nd EOMI. ENT: Nare s clear, no rhinor sushil or epistaxis. Mucous membranes moist. NECK: Supp le. CHEST: Clear t o auscultation. N o respiratory dist ress. HEART: Regul ar rate and rhythm . No murmur heard . Normal peripher al pulses. ABDOMEN : Soft, mild right CVA tenderness P r, nondistended, n ormal active bowel sounds. EXTREMITI ES: Normal range o f motion. No donna a. SKIN: Warm, dry , no rash. NEURO: No focal deficits. Alert and orient ed x3. PSYCH: Norm al mood and affect . Objective Data Vital Signs Vital Signs: Vital Signs - 24 hr 07/12/24 14:00 07/12/24 20:07 07/12/24 20:00 Temperature 36.2 C L 37.0 C Pulse Rate 96 78 Respiratory Rate 18 16 Blood Pressure 121/46 L 132/75 Pulse Oximetry 96 96 Oxygen Delivery Room Air 07/13/24 05:04 Temperature 36.8 C Pulse Rate 74 Respiratory Rate 18 Blood Pressure 113/64 Pulse Oximetry 99 Oxygen Delivery Intake/Output Intake/Output: Intake & Output 07/10/24 07/11/24 07/12/24 07/13/24 23:59 23:59 23:59 23:59 Intake Total 4790.8 1550 Output Total 300 Balance 4790.8 1250 Meds/Results Medications: Active Medications Generic Name Dose Route Start Last Admin Trade Name Freq PRN Reason Stop Dose Admin Acetaminophen 650 mg 07/12/24 06:23 Acetaminophen 325 Mg Tablet PO Q4H PRN Mild Pain (1-3) or Fever Hydrocodone Bitart/Acetaminophen 1 tab 07/12/24 21:51 07/13/24 06:26 Hydrocodone/Acetaminophen (*Crx) 5-325 Mg Tablet PO 1 tab Q6H PRN Administration Pain Rated 4-6 Enoxaparin Sodium 40 mg 07/12/24 10:15 07/13/24 08:22 Enoxaparin 40 Mg/0.4 Ml Syringe SUB-Q 40 mg DAILY DEANDRE Administration Sodium Chloride 1,000 mls @ 125 mls/hr 07/12/24 06:25 07/13/24 06:26 Normal Saline Iv IV CONT 125 mls/hr .Q8H DEANDRE Administration Levetiracetam 1,000 mg in 100 mls @ 400 mls/hr 07/12/24 10:55 07/13/24 08:22 Keppra Iv IVPB 400 mls/hr Q12HR DEANDRE Administration Meropenem 1 gm in 100 mls @ 200 mls/hr 07/13/24 09:00 IVPB Q8H DEANDRE Levetiracetam 1,000 mg 07/12/24 10:10 07/12/24 11:40 Levetiracetam 500 Mg Tablet PO Not Given Q12HR DEANDRE Morphine Sulfate 2 mg 07/12/24 21:52 07/13/24 08:22 Morphine Sulfate (*Crx) 4 Mg/Ml Inj IV PUSH 2 mg Q2H PRN Administration Pain Rated 7-10 Home Med ( 15 mg 07/13/24 09:00 07/13/24 08:36 Phentermine 15 Mg PO 08/12/24 08:59 15 mg Capsule) DAILY DEANDRE Administration Promethazine HCl 12.5 mg 07/12/24 06:23 07/13/24 00:05 Promethazine Hcl 25 Mg/Ml Ampul IV PUSH 12.5 mg Q6H PRN Administration Nausea Tizanidine HCl 8 mg 07/12/24 10:07 Tizanidine Hcl 4 Mg Tablet PO QHS PRN muscle spasms Topiramate 100 mg 07/12/24 10:15 07/13/24 08:24 Topiramate 100 Mg Tablet PO 100 mg BID DEANDRE Administration Radiology Results: ITS Impressions Abdomen/Pelvis CT 07/12/24 06:17 IMPRESSION: 1. 4 mm nonobstructing right kidney stone. Labs Labs: Laboratory Results - last 24 hr 07/13/24 06:31 WBC 5.3 RBC 5.02 Hgb 12.8 Hct 43.1 MCV 85.9 D MCH 25.5 L MCHC 29.7 L RDW 14.7 H Plt Count 130 L D MPV 10.1 % Immature Plt Fraction 2.6 Sodium 139 Potassium 4.0 Chloride 114 H Carbon Dioxide 18 L Anion Gap 7 BUN 6 L D Creatinine 0.70 Estim Creat Clear Calc 86 Estimated GFR > 60 Glucose 70 Calcium 8.2 L Total Bilirubin 0.7 AST 57 H ALT 65 H Alkaline Phosphatase 96 Total Protein 6.0 L Albumin 3.5 Quality VTE Prophylaxis VTE prophylaxis: pharmacologic ordered
[2024-07-13] MEDS: MEROPENEM 1 GM/NS 100 ML 1 GM/100 ML BAG IVPB ×2 (11:47→18:18)
[2024-07-13 14:00] VITALS: BP 124/83; PULSE 78; RESP 18; TEMP 36.4; O2SAT 98
[2024-07-13 21:52] VITALS: BP 128/71; PULSE 72; RESP 18; TEMP 36.5; O2SAT 100
[2024-07-14] MEDS: MORPHINE SULFATE (*CRX) 4 MG/ML INJ 2 MG IV PUSH ×5 (03:38→21:43)
[2024-07-14] MEDS: PROMETHAZINE HCL 25 MG/ML AMPUL 12.5 MG IV PUSH ×3 (03:38→16:29)
[2024-07-14 06:00] VITALS: BP 124/57; PULSE 61; RESP 16; TEMP 36.7; O2SAT 99
[2024-07-14] MEDS: ENOXAPARIN 40 MG/0.4 ML SYRINGE SUB-Q (07:30)
[2024-07-14] MEDS: TOPIRAMATE 100 MG TABLET PO ×2 (07:31→15:49)
[2024-07-14] MEDS: HYDROcodone/acetaminophen (*CRX) 5-325 MG TABLET 1 TAB PO ×2 (07:31→16:28)
[2024-07-14] MEDS: MEROPENEM 1 GM/NS 100 ML 1 GM/100 ML BAG IVPB ×3 (07:31→15:49)
[2024-07-14] MEDS: PHENTERMINE 15 MG 15 EACH PO (07:31)
[2024-07-14] MEDS: levETIRAcetam 1000MG/NACL100ML 1,000 MG/100 ML BAG 400 MG IVPB (07:31)
[2024-07-14] MEDS: SODIUM CHLORIDE 0.9% IV 1,000 ML 125 ML IV CONT (07:38)
--- NOTE | 2024-07-14 11:21 | PM.IMPN ---
Progress Note: A&P Assessment and Plan (1) Pyelonephritis: Code(s): N12 - Tubulo-interstitial nephritis, not specified as acute or chronic Status: Acute Assessment and Plan: Urine culture shows patient has E coli infection. IV antibiotics changed to meropenem. Switch to Augmentin at discharge Will stop IV fluids (2) Nausea & vomiting: Qualifiers: Vomiting Intractability: non-intractable Vomiting type: unspecified Qualified Code(s): R11.2 - Nausea with vomiting, unspecified Code(s): R11.2 - Nausea with vomiting, unspecified Status: Inactive Assessment and Plan: IV fluids and nausea medication as needed (3) Seizure disorder: Code(s): G40.909 - Epilepsy, unspecified, not intractable, without status epilepticus Status: Acute Assessment and Plan: Stable on current medication Switched to IV Keppra (4) Anxiety: Code(s): F41.9 - Anxiety disorder, unspecified Status: Acute Assessment and Plan: Stable on current medications (5) Abnormal liver function test: Code(s): R79.89 - Other specified abnormal findings of blood chemistry Status: Acute Assessment and Plan: CT scan is negative and did not show any problem with liver present time. Will repeat and monitor the. Plan DVT prophylaxis on Lovenox Thrombocytopenia recheck and monitor Metabolic acidosis non-anion gap could be from topiramate as also present in the past Subjective Date/time seen: 07/14/24 11:21 Interval history: Overnight events. Still nauseated. Three of her breakfast. Back pain still bothers her. Review of Systems Review of Systems: All systems reviewed & are unremarkable except as noted in HPI and below (the history and physical examination.) Exam Narrative: GENERAL: Well-appearing, well-nourished, and in no acute pain distress. HEAD: Normocephalic, atraumatic. EYES: PERRLA and EOMI. ENT: Nares clear, no rhinorrhea or epistaxis. Mucous membranes moist. NECK: Supple. CHEST: Clear to auscultation. No respiratory distress. HEART: Regular rate and rhythm. No murmur heard. Normal peripheral pulses. ABDOMEN: Soft, nondistended, nontender normal active bowel sounds. EXTREMITIES: Normal range of motion. No edema. SKIN: Warm, dry, no rash. NEURO: No focal deficits. Alert and oriented x3. PSYCH: Normal mood and affect. Objective Data Vital Signs Vital Signs: Vital Signs - 24 hr 07/13/24 14:00 07/13/24 21:52 07/13/24 20:00 Temperature 97.5 F L 97.7 F Pulse Rate 78 72 Respiratory Rate 18 18 Blood Pressure 124/83 128/71 Pulse Oximetry 98 100 Oxygen Delivery Room Air 07/14/24 06:00 07/14/24 08:00 Temperature 98.0 F Pulse Rate 61 Respiratory Rate 16 Blood Pressure 124/57 L Pulse Oximetry 99 Oxygen Delivery Room Air Intake/Output Intake/Output: Intake & Output 07/11/24 07/12/24 07/13/24 07/14/24 23:59 23:59 23:59 23:59 Intake Total 4790.8 6130 1536 Output Total 1200 Balance 4790.8 4930 1536 Meds/Results Medications: Active Medications Generic Name Dose Route Start Last Admin Trade Name Freq PRN Reason Stop Dose Admin Acetaminophen 650 mg 07/12/24 06:23 Acetaminophen 325 Mg Tablet PO Q4H PRN Mild Pain (1-3) or Fever Hydrocodone Bitart/Acetaminophen 1 tab 07/12/24 21:51 07/14/24 07:31 Hydrocodone/Acetaminophen (*Crx) 5-325 Mg Tablet PO 1 tab Q6H PRN Administration Pain Rated 4-6 Enoxaparin Sodium 40 mg 07/12/24 10:15 07/14/24 07:30 Enoxaparin 40 Mg/0.4 Ml Syringe SUB-Q 40 mg DAILY DEANDRE Administration Sodium Chloride 1,000 mls @ 125 mls/hr 07/12/24 06:25 07/14/24 07:38 Normal Saline Iv IV CONT 125 mls/hr .Q8H DEANDRE Administration Levetiracetam 1,000 mg in 100 mls @ 400 mls/hr 07/12/24 10:55 07/14/24 07:46 Keppra Iv IVPB Infused Q12HR DEANDRE Infusion Meropenem 1 gm in 100 mls @ 200 mls/hr 07/13/24 09:00 07/14/24 08:01 IVPB Infused Q8H DEANDRE Infusion Levetiracetam 1,000 mg 07/12/24 10:10 07/12/24 11:40 Levetiracetam 500 Mg Tablet PO Not Given Q12HR [facility] Morphine Sulfate 2 mg 07/12/24 21:52 07/14/24 09:14 Morphine Sulfate (*Crx) 4 Mg/Ml Inj IV PUSH 2 mg Q2H PRN Administration Pain Rated 7-10 Home Med ( 15 mg 07/13/24 09:00 07/14/24 07:31 Phentermine 15 Mg PO 08/12/24 08:59 15 mg Capsule) DAILY DEANDRE Administration Promethazine HCl 12.5 mg 07/12/24 06:23 07/14/24 09:13 Promethazine Hcl 25 Mg/Ml Ampul IV PUSH 12.5 mg Q6H PRN Administration Nausea Tizanidine HCl 8 mg 07/12/24 10:07 Tizanidine Hcl 4 Mg Tablet PO QHS PRN muscle spasms Topiramate 100 mg 07/12/24 10:15 07/14/24 07:31 Topiramate 100 Mg Tablet PO 100 mg BID DEANDRE Administration Radiology Results: ITS Impressions Abdomen/Pelvis CT 07/12/24 06:17 IMPRESSION: 1. 4 mm nonobstructing right kidney stone.
[2024-07-14 11:59] LABS: Eosinophils Absolute Auto 0.1 K/mm3 (0-0.3); Hematocrit 43.4 % (37.0-47.0); Hemoglobin 13.5 g/dL (12.0-15.0); Immature Granulocyte Absolute 0.01 K/mm3 (0.00-0.031); Immature Granulocyte Percent A 0.3 % (0-0.5); Lymphocytes Absolute Auto 1.92 K/mm3 (0.9-3.2); Mean Corpuscular HGB Conc 31.1 g/dl (32-36); Mean Corpuscular Hemoglobin 25.9 pg (26-34); Mean Corpuscular Volume 83.3 fl (80-100); Mean Platelet Volume 9.9 fl (7.4-10.4); Monocytes Absolute Auto 0.4 K/mm3 (0.1-0.6); Monocytes Percent Auto 8.8 % (2.6-8.5); Neutrophils Absolute Auto 1.6 K/mm3 (1.3-6.7); Neutrophils Percent Auto 39.9 % (45.5-73.1); Platelet Count Result 180 k/mm3 (150-375); Red Blood Count 5.21 M/mm3 (4.2-5.4); Red Cell Distribution Width 14.9 % (11.5-14.5)
[2024-07-14 12:07] LABS: Alanine Aminotransferase 60 U/L (6-35); Albumin Level 3.7 g/dL (3.5-5.1); Alkaline Phosphatase 94 U/L (38-126); Anion Gap 7 mmol/L (4-12); Aspartate Amino Transferase 40 U/L (14-36); Bilirubin,Total 0.7 mg/dL (0.2-1.3); Blood Urea Nitrogen 3 mg/dL (7-17); Calcium 8.6 mg/dL (8.4-10.2); Carbon Dioxide 25 mmol/L (22-30); Chloride 110 mmol/L (98-107); Estimated CRCL calculation 99 ml/min; Estimated Glomerular Filt Rate > 60; Glucose 76 mg/dL (65-110); Magnesium 1.8 mg/dL (1.6-2.3); Sodium 142 mmol/L (137-145)
[2024-07-14] MEDS: ONDANSETRON INJ 4 MG/2 ML VIAL IV PUSH ×2 (13:16→21:43)
[2024-07-14 14:00] VITALS: BP 121/74; PULSE 70; RESP 18; TEMP 36.4; O2SAT 100
[2024-07-14] MEDS: PHENAZOPYRIDINE HCL 100 MG TABLET 200 MG PO (15:49)
[2024-07-14 21:24] VITALS: BP 125/75; PULSE 78; RESP 18; TEMP 36.3; O2SAT 99
[2024-07-14] MEDS: levETIRAcetam 500 MG TABLET 1000 MG PO (21:43)
[2024-07-15] MEDS: PROMETHAZINE HCL 25 MG/ML AMPUL 12.5 MG IV PUSH ×3 (00:08→18:05)
[2024-07-15] MEDS: MEROPENEM 1 GM/NS 100 ML 1 GM/100 ML BAG IVPB ×3 (01:16→17:59)
[2024-07-15] MEDS: MORPHINE SULFATE (*CRX) 4 MG/ML INJ 2 MG IV PUSH ×6 (01:23→22:45)
[2024-07-15] MEDS: HYDROcodone/acetaminophen (*CRX) 5-325 MG TABLET 1 TAB PO ×3 (03:42→20:29)
[2024-07-15] MEDS: ONDANSETRON INJ 4 MG/2 ML VIAL IV PUSH ×2 (05:20→14:23)
[2024-07-15 06:00] VITALS: BP 110/67; PULSE 76; RESP 18; TEMP 36.3; O2SAT 98
[2024-07-15 07:01] LABS: Basophils Absolute Auto 0.1 K/mm3 (0.0-0.1); Basophils Percent Auto 1.1 % (0.2-1.2); Eosinophils Absolute Auto 0.1 K/mm3 (0-0.3); Hematocrit 40.2 % (37.0-47.0); Hemoglobin 12.1 g/dL (12.0-15.0); Immature Granulocyte Absolute 0.02 K/mm3 (0.00-0.031); Immature Granulocyte Percent A 0.4 % (0-0.5); Lymphocytes Absolute Auto 2.12 K/mm3 (0.9-3.2); Lymphocytes Percent Auto 38.3 % (18.3-44.2); Mean Corpuscular HGB Conc 30.1 g/dl (32-36); Mean Corpuscular Hemoglobin 25.2 pg (26-34); Mean Corpuscular Volume 83.8 fl (80-100); Mean Platelet Volume 10.8 fl (7.4-10.4); Monocytes Absolute Auto 0.5 K/mm3 (0.1-0.6); Monocytes Percent Auto 9.7 % (2.6-8.5); Neutrophils Absolute Auto 2.7 K/mm3 (1.3-6.7); Neutrophils Percent Auto 48.5 % (45.5-73.1); Platelet Count Result 199 k/mm3 (150-375); Red Cell Distribution Width 14.9 % (11.5-14.5); White Blood Count 5.5 K/mm3 (4.5-10.0)
[2024-07-15 07:12] LABS: Alanine Aminotransferase 44 U/L (6-35); Alkaline Phosphatase 97 U/L (38-126); Anion Gap 4 mmol/L (4-12); Aspartate Amino Transferase 28 U/L (14-36); Bilirubin,Total 0.4 mg/dL (0.2-1.3); Blood Urea Nitrogen 9 mg/dL (7-17); Calcium 8.4 mg/dL (8.4-10.2); Carbon Dioxide 22 mmol/L (22-30); Chloride 113 mmol/L (98-107); Estimated CRCL calculation 86 ml/min; Estimated Glomerular Filt Rate > 60; Glucose 120 mg/dL (65-110); Magnesium 1.9 mg/dL (1.6-2.3); Potassium 3.9 mmol/L (3.4-5.0); Sodium 139 mmol/L (137-145)
[2024-07-15 08:00] VITALS: PULSE 76; RESP 18; O2SAT 98
[2024-07-15] MEDS: levETIRAcetam 500 MG TABLET 1000 MG PO ×2 (08:28→20:29)
[2024-07-15] MEDS: TOPIRAMATE 100 MG TABLET PO ×2 (08:29→17:59)
[2024-07-15] MEDS: PHENAZOPYRIDINE HCL 100 MG TABLET 200 MG PO ×3 (08:29→17:59)
[2024-07-15] MEDS: ENOXAPARIN 40 MG/0.4 ML SYRINGE SUB-Q (08:29)
[2024-07-15] MEDS: LIDOCAINE HCL 1% LOCAL INJ 2 ML AMPUL 5 ML INFILTRATE (08:40)
[2024-07-15] MEDS: PHENTERMINE 15 MG 15 EACH PO (09:09)
--- NOTE | 2024-07-15 10:55 | P.PNIM_ITS ---
Progress Note: A&P Assessment and Plan (1) Pyelonephritis: Code(s): N12 - Tubulo-interstitial nephritis, not specified as acute or chronic Status: Acute Assessment and Plan: Urine culture shows patient has E coli infection ESBL.. IV antibiotics changed to meropenem. With possibility of pyelonephritis will continue on meropenem. (2) Nausea & vomiting: Qualifiers: Vomiting Intractability: non-intractable Vomiting type: unspecified Qualified Code(s): R11.2 - Nausea with vomiting, unspecified Code(s): R11.2 - Nausea with vomiting, unspecified Status: Inactive Assessment and Plan: IV fluids and nausea medication as needed (3) Seizure disorder: Code(s): G40.909 - Epilepsy, unspecified, not intractable, without status epilepticus Status: Acute Assessment and Plan: Stable on current medication Switched to IV Keppra but back on oral Keppra now (4) Anxiety: Code(s): F41.9 - Anxiety disorder, unspecified Status: Acute Assessment and Plan: Stable on current medications (5) Abnormal liver function test: Code(s): R79.89 - Other specified abnormal findings of blood chemistry Status: Acute Assessment and Plan: CT scan is negative and did not show any problem with liver present time. Will repeat and monitor the. Plan DVT prophylaxis on Lovenox Thrombocytopenia improved Metabolic acidosis non-anion gap could be from topiramate as also present in the past Subjective Date/time seen: 07/15/24 10:55 Interval history: Patient continues to be nauseous. Not eating much. No shortness of breath chest pain. Back pain still bothers her. Review of Systems Review of Systems: All systems reviewed & are unremarkable except as noted in HPI and below (the history and physical examination.) Exam Narrative: GENERAL: Well-appearing, well-nourished, and in no acute pain distress. HEAD: Normocephalic, atraumatic. EYES: PERRLA and EOMI. ENT: Nares clear, no rhinorrhea or epistaxis. Mucous membranes moist. NECK: Supple. CHEST: Clear to auscultation. No respiratory distress. HEART: Regular rate and rhythm. No murmur heard. Normal peripheral pulses. ABDOMEN: Soft, nondistended, nontender normal active bowel sounds. EXTREMITIES: Normal range of motion. No edema. SKIN: Warm, dry, no rash. NEURO: No focal deficits. Alert and oriented x3. PSYCH: Normal mood and affect. Objective Data Vital Signs Vital Signs: Vital Signs - 24 hr 07/14/24 14:00 07/14/24 21:24 07/14/24 20:00 Temperature 97.6 F 97.3 F L Pulse Rate 70 78 Respiratory Rate 18 18 Blood Pressure 121/74 125/75 Pulse Oximetry 100 99 Oxygen Delivery Room Air 07/15/24 06:00 07/15/24 08:00 Temperature 97.3 F L Pulse Rate 76 76 Respiratory Rate 18 18 Blood Pressure 110/67 Pulse Oximetry 98 98 Oxygen Delivery Room Air Intake/Output Intake/Output: Intake & Output 07/12/24 07/13/24 07/14/24 07/15/24 23:59 23:59 23:59 23:59 Intake Total 4790.8 6130 3116 590 Output Total 1200 Balance 4790.8 4930 3116 590 Meds/Results Medications: Active Medications Generic Name Dose Route Start Last Admin Trade Name Freq PRN Reason Stop Dose Admin Acetaminophen 650 mg 07/12/24 06:23 Acetaminophen 325 Mg Tablet PO Q4H PRN Mild Pain (1-3) or Fever Hydrocodone Bitart/Acetaminophen 1 tab 07/12/24 21:51 07/15/24 03:42 Hydrocodone/Acetaminophen (*Crx) 5-325 Mg Tablet PO 1 tab Q6H PRN Administration Pain Rated 4-6 Enoxaparin Sodium 40 mg 07/12/24 10:15 07/15/24 08:29 Enoxaparin 40 Mg/0.4 Ml Syringe SUB-Q 40 mg DAILY DEANDRE Administration Meropenem 1 gm in 100 mls @ 200 mls/hr 07/13/24 09:00 07/15/24 01:16 IVPB 200 mls/hr Q8H DEANDRE Administration Levetiracetam 1,000 mg 07/12/24 10:10 07/15/24 08:28 Levetiracetam 500 Mg Tablet PO 1,000 mg Q12HR DEANDRE Administration Morphine Sulfate 2 mg 07/12/24 21:52 07/15/24 08:33 Morphine Sulfate (*Crx) 4 Mg/Ml Inj IV PUSH 2 mg Q2H PRN Administration Pain Rated 7-10 Home Med ( 15 mg 07/13/24 09:00 07/15/24 09:09 Phentermine 15 Mg PO 08/12/24 08:59 15 mg Capsule) DAILY DEANDRE Administration Ondansetron HCl 4 mg 07/14/24 13:08 07/15/24 05:20 Ondansetron Inj 4 Mg/2 Ml Vial IV PUSH 4 mg Q4H PRN Administration Nausea And Vomiting Phenazopyridine HCl 200 mg 07/14/24 17:00 07/15/24 08:29 Phenazopyridine Hcl 100 Mg Tablet PO 200 mg TIDWM DEANDRE Administration Promethazine HCl 12.5 mg 07/12/24 06:23 07/15/24 08:32 Promethazine Hcl 25 Mg/Ml Ampul IV PUSH 12.5 mg Q6H PRN Administration Nausea Sodium Chloride 10 ml 07/15/24 14:00 Saline Lock Flush IV PUSH Q8HR DEANDRE Sodium Chloride 10 ml 07/15/24 09:09 Saline Lock Flush IV PUSH PRN PRN Flush Sodium Chloride 20 ml 07/15/24 09:09 Saline Lock Flush IV PUSH PRN PRN after blood draws Tizanidine HCl 8 mg 07/12/24 10:07 Tizanidine Hcl 4 Mg Tablet PO QHS PRN muscle spasms Topiramate 100 mg 07/12/24 10:15 07/15/24 08:29 Topiramate 100 Mg Tablet PO 100 mg BID DEANDRE Administration Radiology Results: ITS Impressions Abdomen/Pelvis CT 07/12/24 06:17 IMPRESSION: 1. 4 mm nonobstructing right kidney stone. Labs Labs: Laboratory Results - last 24 hr 07/14/24 07/15/24 11:47 05:37 WBC 4.0 L 5.5 RBC 5.21 4.80 Hgb 13.5 12.1 Hct 43.4 40.2 MCV 83.3 83.8 MCH 25.9 L 25.2 L MCHC 31.1 L 30.1 L RDW 14.9 H 14.9 H Plt Count 180 199 MPV 9.9 10.8 H Immature Gran % (Auto) 0.3 0.4 Neut % (Auto) 39.9 L 48.5 Lymph % (Auto) 48.0 H 38.3 [place] % (Auto) 8.8 H 9.7 H Eos % (Auto) 2.0 2.0 Baso % (Auto) 1.0 1.1 Lymph # (Auto) 1.92 2.12 [place] # (Auto) 0.4 0.5 Eos # (Auto) 0.1 0.1 Baso # (Auto) 0.0 0.1 Abs Immat Gran (auto) 0.01 0.02 Absolute Neuts (auto) 1.6 2.7 Absolute Nucleated RBC 0.000 0.000 Nucleated RBC % 0.0 0.0 Sodium 142 139 Potassium 4.0 3.9 Chloride 110 H 113 H Carbon Dioxide 25 22 Anion Gap 7 4 BUN 3 L 9 D Creatinine 0.60 L 0.70 Estim Creat Clear Calc 99 86 Estimated GFR > 60 > 60 Glucose 76 120 H Calcium 8.6 8.4 Magnesium 1.8 1.9 Total Bilirubin 0.7 0.4 AST 40 H 28 ALT 60 H 44 H Alkaline Phosphatase 94 97 Total Protein 7.0 6.0 L Albumin 3.7 3.0 L
[2024-07-15] MEDS: SALINE LOCK FLUSH 10 ML IV PUSH ×2 (12:10→20:29)
[2024-07-15 13:50] VITALS: BP 118/90; PULSE 77; RESP 16; TEMP 36.8; O2SAT 98
[2024-07-15 22:00] VITALS: BP 128/73; PULSE 78; RESP 18; TEMP 36.7; O2SAT 99
[2024-07-16] MEDS: PROMETHAZINE HCL 25 MG/ML AMPUL 12.5 MG IV PUSH ×3 (00:40→16:28)
[2024-07-16] MEDS: MEROPENEM 1 GM/NS 100 ML 1 GM/100 ML BAG IVPB ×3 (00:58→16:28)
[2024-07-16] MEDS: HYDROcodone/acetaminophen (*CRX) 5-325 MG TABLET 1 TAB PO ×2 (04:20→22:04)
[2024-07-16] MEDS: SALINE LOCK FLUSH 10 ML IV PUSH ×3 (05:27→21:26)
[2024-07-16 06:00] VITALS: BP 166/75; PULSE 64; RESP 18; TEMP 36.4; O2SAT 97
[2024-07-16 06:20] LABS: Basophils Percent Auto 0.8 % (0.2-1.2); Eosinophils Absolute Auto 0.1 K/mm3 (0-0.3); Eosinophils Percent Auto 2.7 % (0-4.4); Hematocrit 41.2 % (37.0-47.0); Hemoglobin 12.5 g/dL (12.0-15.0); Immature Granulocyte Absolute 0.01 K/mm3 (0.00-0.031); Immature Granulocyte Percent A 0.2 % (0-0.5); Lymphocytes Absolute Auto 2.14 K/mm3 (0.9-3.2); Lymphocytes Percent Auto 41.6 % (18.3-44.2); Mean Corpuscular HGB Conc 30.3 g/dl (32-36); Mean Corpuscular Hemoglobin 25.2 pg (26-34); Mean Corpuscular Volume 82.9 fl (80-100); Mean Platelet Volume 10.4 fl (7.4-10.4); Monocytes Absolute Auto 0.5 K/mm3 (0.1-0.6); Monocytes Percent Auto 10.3 % (2.6-8.5); Neutrophils Absolute Auto 2.3 K/mm3 (1.3-6.7); Neutrophils Percent Auto 44.4 % (45.5-73.1); Platelet Count Result 225 k/mm3 (150-375); Red Blood Count 4.97 M/mm3 (4.2-5.4); Red Cell Distribution Width 14.9 % (11.5-14.5); White Blood Count 5.2 K/mm3 (4.5-10.0)
[2024-07-16 06:35] LABS: Alanine Aminotransferase 42 U/L (6-35); Albumin Level 3.1 g/dL (3.5-5.1); Alkaline Phosphatase 89 U/L (38-126); Anion Gap 2 mmol/L (4-12); Aspartate Amino Transferase 30 U/L (14-36); Bilirubin,Total 0.5 mg/dL (0.2-1.3); Blood Urea Nitrogen 7 mg/dL (7-17); Calcium 8.4 mg/dL (8.4-10.2); Carbon Dioxide 22 mmol/L (22-30); Chloride 114 mmol/L (98-107); Estimated CRCL calculation 99 ml/min; Estimated Glomerular Filt Rate > 60; Glucose 102 mg/dL (65-110); Magnesium 1.8 mg/dL (1.6-2.3); Potassium 3.7 mmol/L (3.4-5.0); Sodium 138 mmol/L (137-145)
[2024-07-16] MEDS: PHENAZOPYRIDINE HCL 100 MG TABLET 200 MG PO ×3 (09:14→16:28)
[2024-07-16] MEDS: MORPHINE SULFATE (*CRX) 4 MG/ML INJ 2 MG IV PUSH ×4 (11:12→19:06)
[2024-07-16] MEDS: levETIRAcetam 500 MG TABLET 1000 MG PO ×2 (11:14→21:20)
[2024-07-16] MEDS: ENOXAPARIN 40 MG/0.4 ML SYRINGE SUB-Q (11:14)
[2024-07-16] MEDS: PHENTERMINE 15 MG 15 EACH PO (11:15)
[2024-07-16] MEDS: TOPIRAMATE 100 MG TABLET PO ×2 (11:15→16:28)
--- NOTE | 2024-07-16 11:52 | P.PNIM_ITS ---
Progress Note: A&P Assessment and Plan (1) Pyelonephritis: Code(s): N12 - Tubulo-interstitial nephritis, not specified as acute or chronic Status: Acute Assessment and Plan: Urine culture shows patient has E coli infection ESBL.. IV antibiotics changed to meropenem. With possibility of pyelonephritis will continue on meropenem. (2) Nausea & vomiting: Qualifiers: Vomiting Intractability: non-intractable Vomiting type: unspecified Qualified Code(s): R11.2 - Nausea with vomiting, unspecified Code(s): R11.2 - Nausea with vomiting, unspecified Status: Inactive Assessment and Plan: IV fluids and nausea medication as needed (3) Seizure disorder: Code(s): G40.909 - Epilepsy, unspecified, not intractable, without status epilepticus Status: Acute Assessment and Plan: Stable on current medication Switched to IV Keppra but back on oral Keppra now (4) Anxiety: Code(s): F41.9 - Anxiety disorder, unspecified Status: Acute Assessment and Plan: Stable on current medications (5) Abnormal liver function test: Code(s): R79.89 - Other specified abnormal findings of blood chemistry Status: Acute Assessment and Plan: CT scan is negative and did not show any problem with liver present time. Will repeat and monitor the. Plan DVT prophylaxis on Lovenox Thrombocytopenia improved Metabolic acidosis non-anion gap could be from topiramate as also present in the past Subjective Date/time seen: 07/16/24 11:52 Interval history: No overnight events. Nausea is better. Fever chills. Review of Systems Review of Systems: All systems reviewed & are unremarkable except as noted in HPI and below (the history and physical examination.) Exam Narrative: GENERAL: Well-appearing, well-nourished, and in no acute pain distress. HEAD: Normocephalic, atraumatic. EYES: PERRLA and EOMI. ENT: Nares clear, no rhinorrhea or epistaxis. Mucous membranes moist. NECK: Supple. CHEST: Clear to auscultation. No respiratory distress. HEART: Regular rate and rhythm. No murmur heard. Normal peripheral pulses. ABDOMEN: Soft, nondistended, nontender normal active bowel sounds. EXTREMITIES: Normal range of motion. No edema. SKIN: Warm, dry, no rash. NEURO: No focal deficits. Alert and oriented x3. PSYCH: Normal mood and affect. Objective Data Vital Signs Vital Signs: Vital Signs - 24 hr 07/15/24 13:50 07/15/24 22:00 07/16/24 06:00 Temperature 98.2 F 98.1 F 97.6 F Pulse Rate 77 78 64 Respiratory Rate 16 18 18 Blood Pressure 118/90 128/73 166/75 H Pulse Oximetry 98 99 97 Intake/Output Intake/Output: Intake & Output 07/13/24 07/14/24 07/15/24 07/16/24 23:59 23:59 23:59 23:59 Intake Total 6130 3116 1920 500 Output Total 1200 Balance 4930 3116 1920 500 Meds/Results Medications: Active Medications Generic Name Dose Route Start Last Admin Trade Name Freq PRN Reason Stop Dose Admin Acetaminophen 650 mg 07/12/24 06:23 Acetaminophen 325 Mg Tablet PO Q4H PRN Mild Pain (1-3) or Fever Hydrocodone Bitart/Acetaminophen 1 tab 07/12/24 21:51 07/16/24 04:20 Hydrocodone/Acetaminophen (*Crx) 5-325 Mg Tablet PO 1 tab Q6H PRN Administration Pain Rated 4-6 Enoxaparin Sodium 40 mg 07/12/24 10:15 07/16/24 11:14 Enoxaparin 40 Mg/0.4 Ml Syringe SUB-Q 40 mg DAILY DEANDRE Administration Meropenem 1 gm in 100 mls @ 200 mls/hr 07/13/24 09:00 07/16/24 10:00 IVPB 100 mls/hr Q8H DEANDRE Administration Levetiracetam 1,000 mg 07/12/24 10:10 07/16/24 11:14 Levetiracetam 500 Mg Tablet PO 1,000 mg Q12HR DEANDRE Administration Metoclopramide HCl 5 mg 07/15/24 10:55 Metoclopramide Hcl 5 Mg Tablet PO ACHS PRN Nausea Morphine Sulfate 2 mg 07/12/24 21:52 07/16/24 11:12 Morphine Sulfate (*Crx) 4 Mg/Ml Inj IV PUSH 2 mg Q2H PRN Administration Pain Rated 7-10 Home Med ( 15 mg 07/13/24 09:00 07/16/24 11:15 Phentermine 15 Mg PO 12/28/24 08:59 15 mg Capsule) DAILY DEANDRE Administration Ondansetron HCl 4 mg 07/14/24 13:08 07/15/24 14:23 Ondansetron Inj 4 Mg/2 Ml Vial IV PUSH 4 mg Q4H PRN Administration Nausea And Vomiting Phenazopyridine HCl 200 mg 07/14/24 17:00 07/16/24 09:14 Phenazopyridine Hcl 100 Mg Tablet PO 200 mg TIDWM DEANDRE Administration Promethazine HCl 12.5 mg 07/12/24 06:23 07/16/24 11:13 Promethazine Hcl 25 Mg/Ml Ampul IV PUSH 12.5 mg Q6H PRN Administration Nausea Sodium Chloride 10 ml 07/15/24 14:00 07/16/24 05:27 Saline Lock Flush IV PUSH 10 ml Q8HR DEANDRE Administration Sodium Chloride 10 ml 07/15/24 09:09 Saline Lock Flush IV PUSH PRN PRN Flush Sodium Chloride 20 ml 07/15/24 09:09 Saline Lock Flush IV PUSH PRN PRN after blood draws Tizanidine HCl 8 mg 07/12/24 10:07 Tizanidine Hcl 4 Mg Tablet PO QHS PRN muscle spasms Topiramate 100 mg 07/12/24 10:15 07/16/24 11:15 Topiramate 100 Mg Tablet PO 100 mg BID DEANDRE Administration Radiology Results: ITS Impressions Abdomen/Pelvis CT 07/12/24 06:17 IMPRESSION: 1. 4 mm nonobstructing right kidney stone. Labs Labs: Laboratory Results - last 24 hr 07/16/24 05:58 WBC 5.2 RBC 4.97 Hgb 12.5 Hct 41.2 MCV 82.9 MCH 25.2 L MCHC 30.3 L RDW 14.9 H Plt Count 225 MPV 10.4 Immature Gran % (Auto) 0.2 Neut % (Auto) 44.4 L Lymph % (Auto) 41.6 [place] % (Auto) 10.3 H Eos % (Auto) 2.7 Baso % (Auto) 0.8 Lymph # (Auto) 2.14 [place] # (Auto) 0.5 Eos # (Auto) 0.1 Baso # (Auto) 0.0 Abs Immat Gran (auto) 0.01 Absolute Neuts (auto) 2.3 Absolute Nucleated RBC 0.000 Nucleated RBC % 0.0 Sodium 138 Potassium 3.7 Chloride 114 H Carbon Dioxide 22 Anion Gap 2 L BUN 7 Creatinine 0.60 L Estim Creat Clear Calc 99 Estimated GFR > 60 Glucose 102 Calcium 8.4 Magnesium 1.8 Total Bilirubin 0.5 AST 30 ALT 42 H Alkaline Phosphatase 89 Total Protein 6.0 L Albumin 3.1 L
[2024-07-16 14:00] VITALS: BP 110/74; PULSE 82; RESP 18; TEMP 36.4; O2SAT 100
[2024-07-16] MEDS: ONDANSETRON INJ 4 MG/2 ML VIAL IV PUSH (14:32)
[2024-07-16 20:35] VITALS: BP 120/73; PULSE 91; RESP 18; TEMP 36.2; O2SAT 98
[2024-07-17] MEDS: ONDANSETRON INJ 4 MG/2 ML VIAL IV PUSH ×2 (00:44→13:35)
[2024-07-17] MEDS: MEROPENEM 1 GM/NS 100 ML 1 GM/100 ML BAG IVPB ×4 (00:44→20:57)
[2024-07-17] MEDS: PROMETHAZINE HCL 25 MG/ML AMPUL 12.5 MG IV PUSH ×3 (01:22→16:50)
[2024-07-17] MEDS: MORPHINE SULFATE (*CRX) 4 MG/ML INJ 2 MG IV PUSH ×5 (01:49→20:50)
[2024-07-17 04:17] VITALS: BP 113/67; PULSE 79; RESP 18; TEMP 36.6; O2SAT 97
[2024-07-17] MEDS: SALINE LOCK FLUSH 10 ML IV PUSH ×3 (06:16→20:50)
[2024-07-17] MEDS: levETIRAcetam 500 MG TABLET 1000 MG PO ×2 (09:22→20:48)
[2024-07-17] MEDS: PHENAZOPYRIDINE HCL 100 MG TABLET 200 MG PO ×3 (09:22→16:50)
[2024-07-17] MEDS: PHENTERMINE 15 MG 15 EACH PO (09:23)
[2024-07-17] MEDS: ENOXAPARIN 40 MG/0.4 ML SYRINGE SUB-Q (09:23)
[2024-07-17] MEDS: TOPIRAMATE 100 MG TABLET PO ×2 (09:23→16:50)
[2024-07-17 09:30] VITALS: O2SAT 97
--- NOTE | 2024-07-17 11:39 | PM.IMPN ---
Progress Note: A&P Assessment and Plan (1) Pyelonephritis: Code(s): N12 - Tubulo-interstitial nephritis, not specified as acute or chronic Status: Acute Assessment and Plan: Urine culture shows patient has E coli infection ESBL.. IV antibiotics changed to meropenem. With possibility of pyelonephritis will continue on meropenem. Day 5 of 7 Continue same Will check renal ultrasound (2) Nausea & vomiting: Qualifiers: Vomiting Intractability: non-intractable Vomiting type: unspecified Qualified Code(s): R11.2 - Nausea with vomiting, unspecified Code(s): R11.2 - Nausea with vomiting, unspecified Status: Inactive Assessment and Plan: IV fluids and nausea medication as needed (3) Seizure disorder: Code(s): G40.909 - Epilepsy, unspecified, not intractable, without status epilepticus Status: Acute Assessment and Plan: Stable on current medication Switched to IV Keppra but back on oral Keppra now (4) Anxiety: Code(s): F41.9 - Anxiety disorder, unspecified Status: Acute Assessment and Plan: Stable on current medications (5) Abnormal liver function test: Code(s): R79.89 - Other specified abnormal findings of blood chemistry Status: Acute Assessment and Plan: CT scan is negative and did not show any problem with liver present time. Will repeat and monitor the. Plan DVT prophylaxis on Lovenox Thrombocytopenia improved Metabolic acidosis non-anion gap could be from topiramate as also present in the past Subjective Date/time seen: 07/17/24 11:39 Interval history: No overnight events. Still feels nauseated. Back pain still persist. Remains afebrile 30 Review of Systems Review of Systems: All systems reviewed & are unremarkable except as noted in HPI and below (the history and physical examination.) Exam Narrative: GENERAL: Well-appearing, well-nourished, and in no acute pain distress. HEAD: Normocephalic, atraumatic. EYES: PERRLA and EOMI. ENT: Nares clear, no rhinorrhea or epistaxis. Mucous membranes moist. NECK: Supple. CHEST: Clear to auscultation. No respiratory distress. HEART: Regular rate and rhythm. No murmur heard. Normal peripheral pulses. ABDOMEN: Soft, nondistended, nontender normal active bowel sounds. Right renal angle tenderness EXTREMITIES: Normal range of motion. No edema. SKIN: Warm, dry, no rash. NEURO: No focal deficits. Alert and oriented x3. PSYCH: Normal mood and affect. Objective Data Vital Signs Vital Signs: Vital Signs - 24 hr 07/16/24 14:00 07/16/24 20:35 07/17/24 04:17 Temperature 97.6 F 97.2 F L 97.8 F Pulse Rate 82 91 79 Respiratory Rate 18 18 18 Blood Pressure 110/74 120/73 113/67 Pulse Oximetry 100 98 97 Oxygen Delivery 07/17/24 09:30 Temperature Pulse Rate Respiratory Rate Blood Pressure Pulse Oximetry 97 Oxygen Delivery Room Air Intake/Output Intake/Output: Intake & Output 07/14/24 07/15/24 07/16/24 07/17/24 23:59 23:59 23:59 23:59 Intake Total 3116 1920 1850 455 Output Total 100 Balance 3116 1920 1850 355 Meds/Results Medications: Active Medications Generic Name Dose Route Start Last Admin Trade Name Freq PRN Reason Stop Dose Admin Acetaminophen 650 mg 07/12/24 06:23 Acetaminophen 325 Mg Tablet PO Q4H PRN Mild Pain (1-3) or Fever Hydrocodone Bitart/Acetaminophen 1 tab 07/12/24 21:51 07/16/24 22:04 Hydrocodone/Acetaminophen (*Crx) 5-325 Mg Tablet PO 1 tab Q6H PRN Administration Pain Rated 4-6 Enoxaparin Sodium 40 mg 07/12/24 10:15 07/17/24 09:23 Enoxaparin 40 Mg/0.4 Ml Syringe SUB-Q 40 mg DAILY DEANDRE Administration Meropenem 1 gm in 100 mls @ 200 mls/hr 07/13/24 09:00 07/17/24 09:23 IVPB 100 mls/hr Q8H DEANDRE Administration Levetiracetam 1,000 mg 07/12/24 10:10 07/17/24 09:22 Levetiracetam 500 Mg Tablet PO 1,000 mg Q12HR DEANDRE Administration Metoclopramide HCl 5 mg 07/15/24 10:55 Metoclopramide Hcl 5 Mg Tablet PO ACHS PRN Nausea Morphine Sulfate 2 mg 07/12/24 21:52 07/17/24 09:22 Morphine Sulfate (*Crx) 4 Mg/Ml Inj IV PUSH 2 mg Q2H PRN Administration Pain Rated 7-10 Home Med ( 15 mg 07/13/24 09:00 07/17/24 09:23 Phentermine 15 Mg PO 08/12/24 08:59 15 mg Capsule) DAILY DEANDRE Administration Ondansetron HCl 4 mg 07/14/24 13:08 07/17/24 00:44 Ondansetron Inj 4 Mg/2 Ml Vial IV PUSH 4 mg Q4H PRN Administration Nausea And Vomiting Phenazopyridine HCl 200 mg 07/14/24 17:00 07/17/24 09:22 Phenazopyridine Hcl 100 Mg Tablet PO 200 mg TIDWM DEANDRE Administration Promethazine HCl 12.5 mg 07/12/24 06:23 07/17/24 09:22 Promethazine Hcl 25 Mg/Ml Ampul IV PUSH 12.5 mg Q6H PRN Administration Nausea Sodium Chloride 10 ml 07/15/24 14:00 07/17/24 06:16 Saline Lock Flush IV PUSH 10 ml Q8HR DEANDRE Administration Sodium Chloride 10 ml 07/15/24 09:09 Saline Lock Flush IV PUSH PRN PRN Flush Sodium Chloride 20 ml 07/15/24 09:09 Saline Lock Flush IV PUSH PRN PRN after blood draws Tizanidine HCl 8 mg 07/12/24 10:07 Tizanidine Hcl 4 Mg Tablet PO QHS PRN muscle spasms Topiramate 100 mg 07/12/24 10:15 07/17/24 09:23 Topiramate 100 Mg Tablet PO 100 mg BID DEANDRE Administration Radiology Results: ITS Impressions Abdomen/Pelvis CT 07/12/24 06:17 IMPRESSION: 1. 4 mm nonobstructing right kidney stone.
[2024-07-17] MEDS: HYDROcodone/acetaminophen (*CRX) 5-325 MG TABLET 1 TAB PO (12:22)
[2024-07-17 13:42] VITALS: BP 121/80; PULSE 89; RESP 18; TEMP 36.7; O2SAT 95
[2024-07-17 20:30] VITALS: BP 118/75; PULSE 103; RESP 18; TEMP 37.5; O2SAT 96
[2024-07-18] MEDS: MORPHINE SULFATE (*CRX) 4 MG/ML INJ 2 MG IV PUSH ×4 (00:23→06:55)
[2024-07-18] MEDS: PROMETHAZINE HCL 25 MG/ML AMPUL 12.5 MG IV PUSH (01:05)
[2024-07-18 04:25] VITALS: BP 107/69; PULSE 87; RESP 18; TEMP 36.2; O2SAT 96
[2024-07-18] MEDS: MEROPENEM 1 GM/NS 100 ML 1 GM/100 ML BAG IVPB ×3 (05:03→22:15)
[2024-07-18] MEDS: SALINE LOCK FLUSH 10 ML IV PUSH ×3 (05:03→22:15)
--- NOTE | 2024-07-18 07:51 | VASCRN ---
request received for:Evaluation of painful right upper arm/shoulder area with Midline in right arm requiring IV morphine and ice pack to area to help decrease pain. After review of the chart and the patient assessment:Patient is receiving IV Phenergan, IV meropenem, IV Morphine thru Midline. Patient was found to have significant phlebitis and possible thrombosis in vein where Midline is located. Provider notified:Findings discussed with Martha TAYLOR, who is caring for patient today. Martha is contacting provider for further orders on right arm evaluation by radiology and change in patient care/medication orders.
[2024-07-18] MEDS: HYDROcodone/acetaminophen (*CRX) 5-325 MG TABLET 1 TAB PO ×3 (08:30→20:06)
[2024-07-18] MEDS: METOCLOPRAMIDE HCL 5 MG TABLET PO ×4 (08:31→20:02)
[2024-07-18] MEDS: PHENAZOPYRIDINE HCL 100 MG TABLET 200 MG PO ×3 (08:31→16:55)
[2024-07-18] MEDS: levETIRAcetam 500 MG TABLET 1000 MG PO ×2 (08:31→20:01)
[2024-07-18] MEDS: TOPIRAMATE 100 MG TABLET PO ×2 (08:31→16:55)
[2024-07-18] MEDS: PHENTERMINE 15 MG 15 EACH PO (08:32)
[2024-07-18] MEDS: ENOXAPARIN 100 MG/ML SYRINGE 90 MG SUB-Q ×2 (09:40→20:06)
[2024-07-18] MEDS: HYDROcodone/acetaminophen (*CRX) 10-325 MG TABLET 1 TAB PO ×3 (11:11→23:19)
--- NOTE | 2024-07-18 12:49 | PM.IMPN ---
Progress Note: A&P Assessment and Plan (1) Pyelonephritis: Code(s): N12 - Tubulo-interstitial nephritis, not specified as acute or chronic Status: Acute Assessment and Plan: Urine culture shows patient has E coli infection ESBL.. IV antibiotics changed to meropenem. With possibility of pyelonephritis will continue on meropenem. Day 6 of 7 Continue same Renal ultrasound negative (2) Nausea & vomiting: Qualifiers: Vomiting Intractability: non-intractable Vomiting type: unspecified Qualified Code(s): R11.2 - Nausea with vomiting, unspecified Code(s): R11.2 - Nausea with vomiting, unspecified Status: Inactive Assessment and Plan: IV fluids and nausea medication as needed (3) Seizure disorder: Code(s): G40.909 - Epilepsy, unspecified, not intractable, without status epilepticus Status: Acute Assessment and Plan: Stable on current medication Switched to IV Keppra but back on oral Keppra now (4) Anxiety: Code(s): F41.9 - Anxiety disorder, unspecified Status: Acute Assessment and Plan: Stable on current medications (5) Abnormal liver function test: Code(s): R79.89 - Other specified abnormal findings of blood chemistry Status: Acute Assessment and Plan: CT scan is negative and did not show any problem with liver present time. Will repeat and monitor the. (6) DVT (deep venous thrombosis): Code(s): I82.409 - Acute embolism and thrombosis of unspecified deep veins of unspecified lower extremity Status: Acute Assessment and Plan: Right arm pain 07/17/2024 Ultrasound duplex positive for DVT Start Lovenox 1 milligram/kilos b.i.d. Will remove PICC line tomorrow after antibiotics conclude. Delayed removal has lesser risk of PE Plan DVT prophylaxis on Lovenox Thrombocytopenia improved Metabolic acidosis non-anion gap could be from topiramate as also present in the past Subjective Date/time seen: 07/18/24 12:49 Interval history: patient reports right arm pain, us duplexx positive for DVT. Denies any abdominal pain. Nausea is improved as well. Review of Systems Review of Systems: All systems reviewed & are unremarkable except as noted in HPI and below (the history and physical examination.) Exam Narrative: GENERAL: Well-appearing, well-nourished, and in no acute pain distress. HEAD: Normocephalic, atraumatic. EYES: PERRLA and EOMI. ENT: Nares clear, no rhinorrhea or epistaxis. Mucous membranes moist. NECK: Supple. CHEST: Clear to auscultation. No respiratory distress. HEART: Regular rate and rhythm. No murmur heard. Normal peripheral pulses. ABDOMEN: Soft, nondistended, nontender normal active bowel sounds. Right renal angle tenderness EXTREMITIES: Normal range of motion. No edema. Right arm PICC line in place SKIN: Warm, dry, no rash. NEURO: No focal deficits. Alert and oriented x3. PSYCH: Normal mood and affect. Objective Data Vital Signs Vital Signs: Vital Signs - 24 hr 07/17/24 13:42 07/17/24 20:00 07/17/24 20:30 Temperature 98.1 F 99.5 F Pulse Rate 89 103 H Respiratory Rate 18 18 Blood Pressure 121/80 118/75 Pulse Oximetry 95 96 Oxygen Delivery Room Air 07/18/24 04:25 07/18/24 08:00 Temperature 97.2 F L Pulse Rate 87 Respiratory Rate 18 Blood Pressure 107/69 Pulse Oximetry 96 Oxygen Delivery Room Air Intake/Output Intake/Output: Intake & Output 07/15/24 07/16/24 07/17/24 07/18/24 23:59 23:59 23:59 23:59 Intake Total 1919 1850 1835 700 Output Total 100 Balance 1919 1850 1735 700 Meds/Results Medications: Active Medications Generic Name Dose Route Start Last Admin Trade Name Freq PRN Reason Stop Dose Admin Acetaminophen 650 mg 07/12/24 06:23 Acetaminophen 325 Mg Tablet PO Q4H PRN Mild Pain (1-3) or Fever Hydrocodone Bitart/Acetaminophen 1 tab 07/12/24 21:51 07/18/24 08:30 Hydrocodone/Acetaminophen (*Crx) 5-325 Mg Tablet PO 1 tab Q6H PRN Administration Pain Rated 4-6 Hydrocodone Bitart/Acetaminophen 1 tab 07/18/24 10:13 07/18/24 11:11 Hydrocodone/Acetaminophen (*Crx) 10-325 Mg Tablet PO 1 tab Q6H PRN Administration Pain Rated 7-10 Enoxaparin Sodium 90 mg 07/18/24 08:40 07/18/24 09:40 Enoxaparin 100 Mg/Ml Syringe SUB-Q 90 mg Q12HR DEANDRE Administration Meropenem 1 gm in 100 mls @ 200 mls/hr 07/17/24 16:00 07/18/24 05:30 IVPB 07/19/24 22:29 Infused Q8HR DEANDRE Infusion Levetiracetam 1,000 mg 07/12/24 10:10 07/18/24 08:31 Levetiracetam 500 Mg Tablet PO 1,000 mg Q12HR DEANDRE Administration Metoclopramide HCl 5 mg 07/15/24 10:55 07/18/24 11:11 Metoclopramide Hcl 5 Mg Tablet PO 5 mg ACHS PRN Administration Nausea Morphine Sulfate 2 mg 07/12/24 21:52 07/18/24 06:55 Morphine Sulfate (*Crx) 4 Mg/Ml Inj IV PUSH 2 mg Q2H PRN Administration Pain Rated 7-10 Home Med ( 15 mg 07/13/24 09:00 07/18/24 08:32 Phentermine 15 Mg PO 08/12/24 08:59 15 mg Capsule) DAILY DEANDRE Administration Ondansetron HCl 4 mg 07/18/24 09:38 Ondansetron Hcl Odt 4 Mg Tablet PO Q6H PRN Nausea And Vomiting Phenazopyridine HCl 200 mg 07/14/24 17:00 07/18/24 11:11 Phenazopyridine Hcl 100 Mg Tablet PO 200 mg TIDWM DEANDRE Administration Sodium Chloride 10 ml 07/15/24 14:00 07/18/24 05:03 Saline Lock Flush IV PUSH 10 ml Q8HR DEANDRE Administration Sodium Chloride 10 ml 07/15/24 09:09 Saline Lock Flush IV PUSH PRN PRN Flush Sodium Chloride 20 ml 07/15/24 09:09 Saline Lock Flush IV PUSH PRN PRN after blood draws Tizanidine HCl 8 mg 07/12/24 10:07 Tizanidine Hcl 4 Mg Tablet PO QHS PRN muscle spasms Topiramate 100 mg 07/12/24 10:15 07/18/24 08:31 Topiramate 100 Mg Tablet PO 100 mg BID DEANDRE Administration Radiology Results: ITS Impressions Abdomen/Pelvis CT 07/12/24 06:17 IMPRESSION: 1. 4 mm nonobstructing right kidney stone. Renal Ultrasound 07/17/24 12:37 IMPRESSION: 1. Normal kidneys without hydronephrosis. Venous Doppler Study 07/18/24 08:31 IMPRESSION: 1. Deep vein thrombosis involving the right axillary and brachial veins. 2. Superficial vein thrombosis involving right basilic vein. 3. Multinodular goiter. Ultrasound-guided fine-needle aspiration of 2 nodules is recommended if not previously performed. ADDENDUM: 07/18/24 0838 I discussed the deep vein thrombosis with Dr. Bowman.
[2024-07-18 14:00] VITALS: BP 105/61; PULSE 89; RESP 18; TEMP 36.9; O2SAT 94
[2024-07-18] MEDS: DOCUSATE SODIUM 100 MG CAPSULE PO (20:01)
[2024-07-18 21:35] VITALS: BP 107/79; PULSE 86; RESP 18; TEMP 36.7; O2SAT 96
[2024-07-19] MEDS: TIZANIDINE HCL 4 MG TABLET 8 MG PO (01:36)
[2024-07-19] MEDS: HYDROcodone/acetaminophen (*CRX) 5-325 MG TABLET 1 TAB PO ×4 (01:39→21:24)
[2024-07-19 04:30] VITALS: BP 104/65; PULSE 73; RESP 18; TEMP 35.8; O2SAT 97
[2024-07-19] MEDS: HYDROcodone/acetaminophen (*CRX) 10-325 MG TABLET 1 TAB PO ×3 (04:57→17:03)
[2024-07-19] MEDS: MEROPENEM 1 GM/NS 100 ML 1 GM/100 ML BAG IVPB ×3 (04:57→21:35)
[2024-07-19] MEDS: SALINE LOCK FLUSH 10 ML IV PUSH ×3 (04:58→22:36)
[2024-07-19 07:04] LABS: Basophils Absolute Auto 0.1 K/mm3 (0.0-0.1); Basophils Percent Auto 0.6 % (0.2-1.2); Eosinophils Absolute Auto 0.1 K/mm3 (0-0.3); Eosinophils Percent Auto 1.5 % (0-4.4); Hematocrit 40.1 % (37.0-47.0); Immature Granulocyte Absolute 0.03 K/mm3 (0.00-0.031); Immature Granulocyte Percent A 0.4 % (0-0.5); Lymphocytes Absolute Auto 2.27 K/mm3 (0.9-3.2); Lymphocytes Percent Auto 28.8 % (18.3-44.2); Mean Corpuscular HGB Conc 29.9 g/dl (32-36); Mean Corpuscular Hemoglobin 25.3 pg (26-34); Mean Corpuscular Volume 84.6 fl (80-100); Mean Platelet Volume 10.8 fl (7.4-10.4); Monocytes Percent Auto 12.7 % (2.6-8.5); Neutrophils Absolute Auto 4.4 K/mm3 (1.3-6.7); Platelet Count Result 176 k/mm3 (150-375); Red Blood Count 4.74 M/mm3 (4.2-5.4); Red Cell Distribution Width 14.9 % (11.5-14.5); White Blood Count 7.9 K/mm3 (4.5-10.0)
[2024-07-19 07:23] LABS: Anion Gap 2 mmol/L (4-12); Blood Urea Nitrogen 14 mg/dL (7-17); Calcium 8.7 mg/dL (8.4-10.2); Carbon Dioxide 25 mmol/L (22-30); Chloride 111 mmol/L (98-107); Estimated CRCL calculation 99 ml/min; Estimated Glomerular Filt Rate > 60; Glucose 113 mg/dL (65-110); Potassium 4.4 mmol/L (3.4-5.0); Sodium 138 mmol/L (137-145)
[2024-07-19 08:43] VITALS: O2SAT 95
[2024-07-19] MEDS: APIXABAN 5 MG TABLET 10 MG PO ×2 (09:14→20:44)
[2024-07-19] MEDS: PHENAZOPYRIDINE HCL 100 MG TABLET 200 MG PO ×3 (09:14→17:03)
[2024-07-19] MEDS: DOCUSATE SODIUM 100 MG CAPSULE PO ×2 (09:15→20:44)
[2024-07-19] MEDS: PHENTERMINE 15 MG 15 EACH PO (09:15)
[2024-07-19] MEDS: METOCLOPRAMIDE HCL 5 MG TABLET PO ×3 (09:15→17:03)
[2024-07-19] MEDS: levETIRAcetam 500 MG TABLET 1000 MG PO ×2 (09:15→20:44)
[2024-07-19] MEDS: TOPIRAMATE 100 MG TABLET PO ×2 (09:15→17:03)
[2024-07-19 14:00] VITALS: BP 103/73; PULSE 78; RESP 16; TEMP 36.6; O2SAT 96
--- NOTE | 2024-07-19 20:15 | P.PNIM_ITS ---
Progress Note: A&P Assessment and Plan (1) Pyelonephritis: Code(s): N12 - Tubulo-interstitial nephritis, not specified as acute or chronic Status: Acute Assessment and Plan: Patient presents with dysuria. Started on Rocephin but changed to meropenem on 07/13 when urine culture grew ESBL E coli. BCx negative. CT scan showing normal kidneys with a 4mm nonobstructing right kidney stone. Renal US showing normal kidneys without hydronephrosis. Plan to continue meropenem to complete 7 days. Remove PICC line once done with IV abx. (2) DVT (deep venous thrombosis): Code(s): I82.409 - Acute embolism and thrombosis of unspecified deep veins of unspecified lower extremity Status: Acute Assessment and Plan: Patient with right arm pain with ultrasound duplex positive for DVT in the right axilalry and brachial veins. Also with a superficial vein throbosis right basilic. Probably related to PICC line. Started Lovenox therapeutic dose. Remove PICC line after antibiotics concluded. Delayed removal has lesser risk of PE Change to Eliquis. Care coordination to see about cost of the med (3) Nausea & vomiting: Qualifiers: Vomiting Intractability: non-intractable Vomiting type: unspecified Qualified Code(s): R11.2 - Nausea with vomiting, unspecified Code(s): R11.2 - Nausea with vomiting, unspecified Status: Inactive Assessment and Plan: Better but still with nausea. Continue antiemetics prn (4) Seizure disorder: Code(s): G40.909 - Epilepsy, unspecified, not intractable, without status epilepticus Status: Acute Assessment and Plan: Stable on current medication Switched to IV Keppra but back on oral Keppra now (5) Anxiety: Code(s): F41.9 - Anxiety disorder, unspecified Status: Acute Assessment and Plan: Mood stable. Continue current medications (6) Abnormal liver function test: Code(s): R79.89 - Other specified abnormal findings of blood chemistry Status: Acute Assessment and Plan: AST/ALT mildly elevated. CT scan was negative for concerning findings with the liver. Levels trending down. Plan Thyroid nodules - noted by US. Will need to follow up with her doctor to arrange for biopsy when off anticoagulation. Thrombocytopenia - plt count droped to 130 once then normal. Could be lab error. Repeat counts normal. Metabolic acidosis non-anion gap - could be from topiramate as also present in the past. Symptoms better so consider related to ketosis. DVT prophylaxis - change to Eliquis. Code status - full Subjective Date/time seen: 07/19/24 20:15 Interval history: 54yo female with seizure, anxiety and depression here for dysuria. Assuming care. Chart reviewed. Back pain better today. Complains more about the right arm pain. No CP or SOB. Also with nausea still Exam Narrative: AF 97.8 103/73 78 16 96% ra Gen - NARD Chest - CTA bilaterally, nml RR CV - RRR S1/S2 Abd - Soft, NT/ND, Positive BS Back - R>L CVA tenderness Ext - No pedal edema. Right UE enlarged. Rt arm PICC in place Psych - Nml mood and affect Skin - Warm and dry Objective Data Vital Signs Vital Signs: Vital Signs - 24 hr 07/18/24 21:35 07/19/24 04:30 07/19/24 08:43 Temperature 98.1 F 96.4 F L Pulse Rate 86 73 Respiratory Rate 18 18 Blood Pressure 107/79 104/65 Pulse Oximetry 96 97 95 Oxygen Delivery Room Air 07/19/24 08:00 07/19/24 14:00 Temperature 97.8 F Pulse Rate 78 Respiratory Rate 16 Blood Pressure 103/73 Pulse Oximetry 96 Oxygen Delivery Room Air Intake/Output Intake/Output: Intake & Output 07/16/24 07/17/24 07/18/24 07/19/24 23:59 23:59 23:59 23:59 Intake Total 1850 1835 1780 1740 Output Total 100 Balance 1850 1735 1780 1740 Meds/Results Medications: Active Medications Generic Name Dose Route Start Last Admin Trade Name Freq PRN Reason Stop Dose Admin Acetaminophen 650 mg 07/12/24 06:23 Acetaminophen 325 Mg Tablet PO Q4H PRN Mild Pain (1-3) or Fever Hydrocodone Bitart/Acetaminophen 1 tab 07/12/24 21:51 07/19/24 15:38 Hydrocodone/Acetaminophen (*Crx) 5-325 Mg Tablet PO 1 tab Q6H PRN Administration Pain Rated 4-6 Hydrocodone Bitart/Acetaminophen 1 tab 07/18/24 10:13 07/19/24 17:03 Hydrocodone/Acetaminophen (*Crx) 10-325 Mg Tablet PO 1 tab Q6H PRN Administration Pain Rated 7-10 Apixaban 10 mg 07/19/24 09:00 07/19/24 09:14 Apixaban 5 Mg Tablet PO 07/25/24 21:01 10 mg Q12HR DEANDRE Administration Apixaban 5 mg 07/26/24 09:00 Apixaban 5 Mg Tablet PO Q12HR DEANDRE Docusate Sodium 100 mg 07/18/24 21:00 07/19/24 09:15 Docusate Sodium 100 Mg Capsule PO 100 mg Q12HR DEANDRE Administration Meropenem 1 gm in 100 mls @ 200 mls/hr 07/17/24 16:00 07/19/24 13:30 IVPB 07/19/24 22:29 Infused Q8HR DEANDRE Infusion Levetiracetam 1,000 mg 07/12/24 10:10 07/19/24 09:15 Levetiracetam 500 Mg Tablet PO 1,000 mg Q12HR DEANDRE Administration Metoclopramide HCl 5 mg 07/15/24 10:55 07/19/24 17:03 Metoclopramide Hcl 5 Mg Tablet PO 5 mg ACHS PRN Administration Nausea Morphine Sulfate 2 mg 07/12/24 21:52 07/18/24 06:55 Morphine Sulfate (*Crx) 4 Mg/Ml Inj IV PUSH 2 mg Q2H PRN Administration Pain Rated 7-10 Home Med ( 15 mg 07/13/24 09:00 07/19/24 09:15 Phentermine 15 Mg PO 08/12/24 08:59 15 mg Capsule) DAILY DEANDRE Administration Ondansetron HCl 4 mg 07/18/24 09:38 Ondansetron Hcl Odt 4 Mg Tablet PO Q6H PRN Nausea And Vomiting Phenazopyridine HCl 200 mg 07/14/24 17:00 07/19/24 17:03 Phenazopyridine Hcl 100 Mg Tablet PO 200 mg TIDWM DEANDRE Administration Sodium Chloride 10 ml 07/15/24 14:00 07/19/24 13:00 Saline Lock Flush IV PUSH 10 ml Q8HR DEANDRE Administration Sodium Chloride 10 ml 07/15/24 09:09 Saline Lock Flush IV PUSH PRN PRN Flush Sodium Chloride 20 ml 07/15/24 09:09 Saline Lock Flush IV PUSH PRN PRN after blood draws Tizanidine HCl 8 mg 07/12/24 10:07 07/19/24 01:36 Tizanidine Hcl 4 Mg Tablet PO 8 mg QHS PRN Administration muscle spasms Topiramate 100 mg 07/12/24 10:15 07/19/24 17:03 Topiramate 100 Mg Tablet PO 100 mg BID DEANDRE Administration Radiology Results: ITS Impressions Abdomen/Pelvis CT 07/12/24 06:17 IMPRESSION: 1. 4 mm nonobstructing right kidney stone. Renal Ultrasound 07/17/24 12:37 IMPRESSION: 1. Normal kidneys without hydronephrosis. Venous Doppler Study 07/18/24 08:31 IMPRESSION: 1. Deep vein thrombosis involving the right axillary and brachial veins. 2. Superficial vein thrombosis involving right basilic vein. 3. Multinodular goiter. Ultrasound-guided fine-needle aspiration of 2 nodules is recommended if not previously performed. ADDENDUM: 07/18/24 0838 I discussed the deep vein thrombosis with Dr. Bowman. Labs Labs: Laboratory Results - last 24 hr 07/19/24 06:11 WBC 7.9 RBC 4.74 Hgb 12.0 Hct 40.1 MCV 84.6 MCH 25.3 L MCHC 29.9 L RDW 14.9 H Plt Count 176 MPV 10.8 H Immature Gran % (Auto) 0.4 Neut % (Auto) 56.0 Lymph % (Auto) 28.8 [place] % (Auto) 12.7 H Eos % (Auto) 1.5 Baso % (Auto) 0.6 Lymph # (Auto) 2.27 [place] # (Auto) 1.0 H Eos # (Auto) 0.1 Baso # (Auto) 0.1 Abs Immat Gran (auto) 0.03 Absolute Neuts (auto) 4.4 Absolute Nucleated RBC 0.000 Nucleated RBC % 0.0 Sodium 138 Potassium 4.4 Chloride 111 H Carbon Dioxide 25 Anion Gap 2 L BUN 14 D Creatinine 0.60 L Estim Creat Clear Calc 99 Estimated GFR > 60 Glucose 113 H Calcium 8.7 Magnesium 2.0
[2024-07-19 22:00] VITALS: BP 106/71; PULSE 86; RESP 18; TEMP 36.9; O2SAT 94
[2024-07-20] MEDS: HYDROcodone/acetaminophen (*CRX) 10-325 MG TABLET 1 TAB PO ×3 (01:15→15:20)
[2024-07-20] MEDS: HYDROcodone/acetaminophen (*CRX) 5-325 MG TABLET 1 TAB PO ×2 (05:10→11:26)
[2024-07-20 05:54] VITALS: BP 124/67; PULSE 82; RESP 20; TEMP 36.5; O2SAT 94
[2024-07-20] MEDS: METOCLOPRAMIDE HCL 5 MG TABLET PO ×2 (08:30→11:26)
[2024-07-20] MEDS: PHENAZOPYRIDINE HCL 100 MG TABLET 200 MG PO ×2 (08:31→11:25)
[2024-07-20] MEDS: TOPIRAMATE 100 MG TABLET PO (08:31)
[2024-07-20] MEDS: levETIRAcetam 500 MG TABLET 1000 MG PO (08:31)
[2024-07-20] MEDS: APIXABAN 5 MG TABLET 10 MG PO (08:34)
[2024-07-20] MEDS: NEOMYCIN/POLYMYXIN/BACITRACIN OINTMENT PACKET 1 PACKET (08:35)
[2024-07-20] MEDS: PHENTERMINE 15 MG 15 EACH PO (08:35)
[2024-07-20] MEDS: DOCUSATE SODIUM 100 MG CAPSULE PO (08:35)
[2024-07-20 14:00] VITALS: BP 117/57; PULSE 85; RESP 18; TEMP 36.2; O2SAT 95
--- NOTE | 2024-07-20 15:09 | PM.DS ---
DS: Admitting Diagnosis Discharge Date 07/20/24 Admitting Diagnosis Dysuria DS: Discharge Diagnosis Discharge Diagnosis (1) Pyelonephritis: Code(s): N12 - Tubulo-interstitial nephritis, not specified as acute or chronic Status: Acute (2) DVT (deep venous thrombosis): Code(s): I82.409 - Acute embolism and thrombosis of unspecified deep veins of unspecified lower extremity Status: Acute (3) Nausea & vomiting: Qualifiers: Vomiting Intractability: non-intractable Vomiting type: unspecified Qualified Code(s): R11.2 - Nausea with vomiting, unspecified Code(s): R11.2 - Nausea with vomiting, unspecified Status: Inactive (4) Seizure disorder: Code(s): G40.909 - Epilepsy, unspecified, not intractable, without status epilepticus Status: Acute (5) Anxiety: Code(s): F41.9 - Anxiety disorder, unspecified Status: Acute (6) Abnormal liver function test: Code(s): R79.89 - Other specified abnormal findings of blood chemistry Status: Acute DS: Summary Hospital Course Reason for hospitalization: 54yo female with seizure, anxiety and depression here for dysuria. Please see H&P for details. Hospital Course: Patient presented with dysuria. She was started on Rocephin but changed to meropenem on 07/13 when urine culture grew ESBL E coli. BCx negative. CT scan showing normal kidneys with a 4mm nonobstructing right kidney stone. Renal US showing normal kidneys without hydronephrosis. She was complaining of CVA tenderness. She had a PICC line placed. She completed a course of meropenem. Patient with right arm pain with ultrasound duplex positive for DVT in the right axillary and brachial veins. Also with a superficial vein thrombosis right basilic. Probably related to PICC line. She was started on Lovenox therapeutic dose. She was transitioned to Eliquis. We removed PICC line after antibiotics concluded. AST/ALT mildly elevated. CT scan was negative for concerning findings with the liver. Levels trending down. Thyroid nodules noted by US. Will need to follow up with her doctor to arrange for biopsy when off anticoagulation. She overall did well and was able to be discharged home on 07/20/24. Status at Discharge Cognitive/behavioral status at discharge: stable Time Spent with Patient Time attestation: Total time spent providing and/or coordinating discharge services: 35 minutes Time spent: Greater than 30 minutes Exam Narrative: AF 97.1 117/57 85 18 95% ra Gen - NARD Chest - CTA bilaterally, nml RR CV - RRR S1/S2 Abd - Soft, NT/ND, Positive BS Ext - No pedal edema. Right UE swelling is improved. No right axillary adenopathy Psych - Nml mood and affect Skin - Warm and dry Discharge Plan Discharge Attending physician on discharge: Octavio May Discharging Clinician: Octavio May Anticipated Discharge Date/Time: 07/20/24 15:15 Patient Disposition: Home, Self-Care Activity: as tolerated Diet: regular Discharge Instructions: Take precautions to avoid falls. Rise slowly from a lying or sitting position. Pause before standing or walking. Contact your doctor or call 911 and come to the Emergency Room if you have any type of trauma, lightheadedness with standing or other worrisome symptoms. Avoid NSAIDs (ibuprofen, naproxen, Aleve). Tylenol is safe to take. You have been started on a medication that thins your blood (anticoagulation medicine) called Eliquis (apixaban) 5mg tablets: -- Take 2 tablets (10mg) every 12 hours through 07/25/14 -- Decrease to 1 tablet (5mg) every 12 hours starting on 07/26/24 Follow-up with your primary care provider in 1-2 weeks. Please call for appointment. Please talk with your doctor about having a thyroid nodule biopsy when it is safe to do so as we discussed Thank you for using [facility] for your health care needs. Patient Instructions: Antibiotic Form Stand Alone Forms: General Discharge Information Follow-up/Referrals: Madhu Tilley MD [Primary Care Provider] - Call for Appointment Discharge Medications: New Eliquis DVT-PE Treat 30D Start 5 mg (74 tabs) tablets,dose pack See Rx Instructions .ROUTE .COMPLEX Qty: 74 0RF Rx Instructions: orally per package directions Continued tizanidine 4 mg capsule 8 mg PO QHS PRN (Reason: muscle spasms) levetiracetam 1,000 mg tablet 1,000 mg PO Q12H phentermine 15 mg capsule 15 mg PO DAILY topiramate 100 mg tablet 100 mg PO BID Date of admission: 07/14/24 13:08 Primary Care Provider: Madhu Tilley Admitting Provider: Ivonne Garzon Attending physician on admission: Ivonne Garzon Condition: Stable Hospitalist MIPS Heart Failure (Exclusion) Patient has history of Heart Transplant or Left Ventricular Assistive Device?: No IF YES, STOP HERE Heart Failure (Qualifier) Patient has current or prior documentation of LVEF less than or equal to 40%, or mod/servere depressed LVSF?: No IF NO, STOP HERE
== END 2024-07-20 15:45 | disposition home or self-care (01) | DRG 690 ==
LOC: ANHED 07-12 05:53 → ANH3MEDSUR 07-12 07:37
PROVIDERS: Internal Medicine; Admitting Provider Internal Medicine; Emergency Provider Emergency Medicine; PCP Internal Medicine; Visit Provider Internal Medicine
DX: N10 Acute pyelonephritis (principal); I82.621 Acute embolism and thrombosis of deep veins of right upper extremity; I82.A11 Acute embolism and thrombosis of right axillary vein; T82.868A Thrombosis due to vascular prosthetic devices, implants and grafts, initial encounter; M19.90 Unspecified osteoarthritis, unspecified site; B96.20 Unspecified Escherichia coli [E. coli] as the cause of diseases classified elsewhere; D69.6 Thrombocytopenia, unspecified; R79.89 Other specified abnormal findings of blood chemistry; G40.909 Epilepsy, unspecified, not intractable, without status epilepticus; F41.9 Anxiety disorder, unspecified; F32.A Depression, unspecified; Z98.84 Bariatric surgery status
CPT/HCPCS: 36415; 36569; 74176; 76775; 80048; 80053; 81001; 83690; 83735; 85025; 85027; 85055; 87040; 87077; 87086; 87088; 87186; 93971; 99285; A9270; C1751; G0378; J0696; J1171; J1650; J1953; J2003; J2185; J2270; J2405; J2550; J2765; J7030

== ENCOUNTER 2024-11-15 09:53 | Emergency (ER) | payer MEDICARE, MEDICAID, SELFPAY ==
--- NOTE | ~2024-11-15 | CT_ITS ---
EXAMINATION: CT abdomen pelvis wo con DATE: 11/15/2024 11:23 INDICATION: Left flank and left lower quadrant pain. Nephrolithiasis. TECHNIQUE: Computed tomography (CT) of the abdomen and pelvis was performed without intravenous contr ast. Automated exposure control and iterative reconstruction technique were employed. The dose-length product was 366.75 mGy-cm. COMPARISON: 07/12/2024 FINDINGS: Visualized lower lungs are clear. Heart size is normal. No pericardial or pleural effusion. Postopera tive changes in the stomach. This includes a suture line about the proximal stomach, cholecystectomy clips at the gallbladder fossa, a couple anastomotic suture lines along loops of small bowel in the r ight abdomen and changes of prior ventral hernia mesh repair. Liver, spleen, pancreas and bilateral a drenal glands are normal. Bilateral nonobstructing nephrolithiasis with 2 mm stone at the lower pole calyx of the left kidney and 4 mm stone at a lower pole calyx of the right kidney. No urolithiasis or hydronephrosis. Unchanged pattern of multiple phleboliths in the pelvis. Decompressed bladder is unr emarkable. The uterus is not identified and has likely been surgically resected. No bowel obstruction . No free intraperitoneal gas or fluid. No pathologically enlarged abdominal or pelvic lymphadenopath y. Severe lumbar spondylosis and moderate lower thoracic spondylosis. IMPRESSION: 1. Bilateral nonobstructing nephrolithiasis. No acute intra-abdominal/pelvic process. 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 IMPRESSION: 1. Bilateral nonobstructing nephrolithiasis. No acute intra-abdominal/pelvic pr ocess.
[2024-11-15 10:13] VITALS: BP 100/73; PULSE 87; RESP 18; TEMP 36.6; O2SAT 100
[2024-11-15 10:20] LABS: Basophils Percent Auto 0.4 % (0.2-1.2); Eosinophils Absolute Auto 0.1 K/mm3 (0-0.3); Eosinophils Percent Auto 1.4 % (0-4.4); Hematocrit 41.7 % (37.0-47.0); Hemoglobin 13.3 g/dL (12.0-15.0); Immature Granulocyte Absolute 0.03 K/mm3 (0.00-0.031); Immature Granulocyte Percent A 0.4 % (0-0.5); Lymphocytes Absolute Auto 1.34 K/mm3 (0.9-3.2); Lymphocytes Percent Auto 16.6 % (18.3-44.2); Mean Corpuscular HGB Conc 31.9 g/dl (32-36); Mean Corpuscular Hemoglobin 26.4 pg (26-34); Mean Corpuscular Volume 82.9 fl (80-100); Mean Platelet Volume 9.6 fl (7.4-10.4); Monocytes Absolute Auto 0.5 K/mm3 (0.1-0.6); Monocytes Percent Auto 5.8 % (2.6-8.5); Neutrophils Absolute Auto 6.1 K/mm3 (1.3-6.7); Neutrophils Percent Auto 75.4 % (45.5-73.1); Platelet Count Result 252 k/mm3 (150-375); Red Blood Count 5.03 M/mm3 (4.2-5.4); Red Cell Distribution Width 15.6 % (11.5-14.5); White Blood Count 8.1 K/mm3 (4.5-10.0)
[2024-11-15 10:30] LABS: Alanine Aminotransferase 33 U/L (6-35); Albumin Level 4.1 g/dL (3.5-5.1); Alkaline Phosphatase 98 U/L (38-126); Anion Gap 12 mmol/L (4-12); Aspartate Amino Transferase 28 U/L (14-36); Bilirubin,Total 0.6 mg/dL (0.2-1.3); Blood Urea Nitrogen 15 mg/dL (7-17); Calcium 8.9 mg/dL (8.4-10.2); Carbon Dioxide 18 mmol/L (22-30); Chloride 109 mmol/L (98-107); Estimated CRCL calculation 83 ml/min; Estimated Glomerular Filt Rate > 60; Glucose 115 mg/dL (65-110); Sodium 139 mmol/L (137-145)
--- OUTSIDE RECORDS SUMMARY | 2024-11-15 10:51 | XMS_ITS ---
Author Organization [facility] Address [address] [place] [address] Care Team Providers Care Processor Inspector Name Role Phone Madhu Tilley Primary Care Provider REASON FOR VISIT URI Medications Medication SIG (Take, Route, Frequency, Duration) Notes Start Date End Date Status Promethazine-DM 6.25-15 MG/5ML 5 mL as needed Orally every 6 hrs for 10 days As needed cough 09/05/2024 Active Social History Sex Assigned At : Social History Observation Description Sex Assigned At Female Encounters Encounter Location Date Provider Diagnosis [address] [place] [address] 09/05/2024 Madhu Tilley Plan Of Treatment Medication Medication Name Sig Start Date Stop Date Notes Promethazine-DM 6.25-15 MG/5ML 5 mL as n eeded Orally every 6 hrs for 10 days 09/05/2024 Progress Notes * Oscar FARLEYOB: [birth year] (54 yo F)Acc No.[id number]:09/05/2024 Patient: Misti MANDEL :1970 A ge:54 Y S ex:Female Address:[address] , [place], [address] * Refills Start Promethazine-DM Syrup, 6.25-15 MG/5ML, Orally, 200 ML, 5 mL as needed, every 6 hrs, 10 days, Refills=1 * true * Date: Generated for Theo pettit/Ambreen/Francesitting on: 0 11/15/2024 10:51 AM CDT
--- OUTSIDE RECORDS SUMMARY | 2024-11-15 10:51 | XMS_ITS ---
Author Organization [facility] Address [address] [place] [address] Care Team Providers Care Production Team Member Name Role Phone Treva Madhu Primary Care Provider [phone] Allergies Allergen (clinical drug ingredient) Drug/Non Drug Allergy documented on EMR Reaction Allergy Type Onset Date Status esomeprazole Nexium Unknown Drug Allergy Acti ve ketorolac toradol (uncoded) Unknown Allergy Ac tive Contrast Dye (uncoded) Unknown Allergy Active REASON FOR VISIT UTI Medications Medication SIG (Take, Route, Frequency, Duration) Notes Start Date End Date Status Cetirizine HCl 10 MG 1 tablet Orally Once a day Unknown Eliquis 5 MG 1 tablet Orally twice a day for 30 days HAS ONE MONTH SUPPLY FROM HOSPITAL. REFILLS ARE TO COMPLETE HER 3-MONTH COURSE. 07/18/2024 Unknown Phentermine HCl 15 MG 1 capsule Orally Once a day for 30 days 09/18/2024 Unknown Promethazine-DM 6.25-15 MG/5ML 5 mL as needed Orally every 6 hrs for 10 days As needed cough 09/05/2024 Unknown Fluticasone Propionate 50 MCG/ACT 2 sprayS in each nostril Nasally Once a day Unknown levETIRAcetam 1000 MG TAKE 1 TABLET BY MOUTH TWICE DAILY for 90 Active tiZANidine HCl 4 MG 1 tablet Orally four times a day for 30 days Unknown Topiramate 100 MG 1 tablet Orally Twice a day Unknown Amoxicillin-Pot Clavulanate 875-125 MG 1 tablet Orally every 12 hrs for 7 days 03/05/2022 Active Social History Sex Assigned At : Social History Observation Description Sex Assigned At Female Encounters Encounter Location Date Provider Diagnosis [address] [place] [address] 09/26/2024 Madhu Tilley UTI (urinary tract infection) N39.0 Assessments Encounter Date Diagnosis (ICD Code) Assessment Notes Treatment Notes Treatment Clinical Notes Section Notes 09/26/2024 UTI (urinary tract infection) (ICD-10 - N39.0) 09/26/2024 Other Learning About the Safe Use of Antibiotics material was discussed. Pt was educated on use of antibiotic medication including dosing, side effects, adverse effects and anticipated response. Pt was also educated on importance of completing full course of treatment as ordered. Patient voiced understanding of all. Plan Of Treatment Medication Medication Name Sig Start Date Stop Date Notes levETIRAcetam 1000 MG TAKE 1 TABLET BY M OUTH TWICE DAILY for 90 Amoxicillin-Pot Clavulanate 875-125 MG 1 tablet Orally every 12 hrs for 7 days 03/05/2022 Treatment Notes Assessment Notes Other Learning About the S afe Use of Antibiotics material was discussed. Pt was educated on use of antibiotic medication including dosing, side effects, adverse effects and anticipated response. Pt was also educated on importance of completing full course of treatment as ordered. Patient voiced understanding of all. Progress Notes * Oscar FARLEYOB: [birth year] (54 yo F)Acc No.[id number]:09/26/2024 Patient: Misti MANDEL :1970 A ge:54 Y S ex:Female Address:[address] [place], [address] * Refills Refill Amoxicillin-Pot Clavulanate Tablet, 875-125 MG, Orally, 14 Tablet, 1 tablet, every 12 hrs, 7 days, Refills=0 Refill levETIRAcetam Tablet, 1000 MG, 180 Tablet, TAKE 1 TABLET BY MOUTH TWICE DAILY, 90, Refills=0 Subjective: * Chief Complaints: * U TI * Medical History: * Surgical History: * Hospitalization/Major Diagno stic Procedure: * Medications: D iscontinuedPaxlovid (300/100) 20 x 150 MG & 10 x 100MG Tablet Therapy Pack 3 tablets Orally Twice a day Discontinued Paxlovid (300/100) 20 x 150 MG & 10 x 100MG Tablet Therapy Pack 3 tablets Orally Twice a day UnknownCetirizine HCl 10 MG Tablet 1 tablet Orally Once a day Fluticasone Propionate 50 MCG/ACT Suspension 2 sprayS in each nostril Nasally Once a day Topiramate 100 MG Tablet 1 tablet Orally Twice a day tiZANidine HCl 4 MG Tablet 1 tablet Orally four times a day levETIRAcetam 1000 MG Tablet TAKE 1 TABLET BY MOUTH TWICE DAILY Eliquis 5 MG Tablet 1 tablet Orally twice a day , Notes to Pharmacist: HAS ONE MONTH SUPPLY FROM HOSPITAL. REFILLS ARE TO COMPLETE HER 3-MONTH COURSE.Promethazine-DM 6.25-15 MG/5ML Syrup 5 mL as needed Orally every 6 hrs As needed coughPhentermine HCl 15 MG Capsule 1 capsule Orally Once a day Unknown Cetirizine HCl 10 MG Tablet 1 tablet Orally Once a day Unknown Fluticasone Propionate 50 MCG/ACT Suspension 2 sprayS in each nostril Nasally Once a day Unknown Topiramate 100 MG Tablet 1 tablet Orally Twice a day Unknown tiZANidine HCl 4 MG Tablet 1 tablet Orally four times a day Unknown levETIRAcetam 1000 MG Tablet TAKE 1 TABLET BY MOUTH TWICE DAILY Unknown Eliquis 5 MG Tablet 1 tablet Orally twice a day , Notes to Pharmacist: HAS ONE MONTH SUPPLY FROM HOSPITAL. REFILLS ARE TO COMPLETE HER 3-MONTH COURSE.Unknown Promethazine-DM 6.25-15 MG/5ML Syrup 5 mL as needed Orally every 6 hrs As needed coughUnknown Phentermine HCl 15 MG Capsule 1 capsule Orally Once a day * Allergies: N exiumtoradolContrast Dye Objective: * Vitals: * Physical Examination: Assessment: * Assessment: 1. U TI (urinary tract infection) - N39.0 (Primary) Plan: * Treatment: 2. O thers Refill levETIRAcetam Tablet, 1000 MG, TAKE 1 TABLET BY MOUTH TWICE DAILY, 90, 180 Tablet, Refills 0. Notes:Learning About the Safe Use of Antibiotics material was discussed. Pt was educated on use of antibiotic medication including dosing, side effects, adverse effects and anticipated response. Pt was also educated on importance of completing full course of treatment as ordered. Patient voiced understanding of all. * Procedure Codes: C HS02 Education given- Antibiotics prescribed * true * Date: Generated for Theo pettit/Ambreen/Concha on: 0 11/15/2024 10:51 AM CDT
--- OUTSIDE RECORDS SUMMARY | 2024-11-15 10:52 | XMS_ITS | Clinical Summary ---
Author Organization [facility] Address [address] [place] [address] Phone Care Team Providers Care Reservation Agent Name Role Phone Madhu Tilley MD Primary Care Provider [phone] Allergies Active Allergy Reactions Criticality Noted Date Comments Esomeprazole Magnesium Hives High 04/30/2017 Iodinated Contrast Media Swelling Low 04/30/2017 Ketorolac Hives High 04/30/2017 Medications levETIRAcetam (KEPPRA) 1,000 mg tablet Take 500 mg by mouth 2 times daily. Active topiramate (TOPAMAX) 100 mg tablet Take 300 mg by mouth daily Patient was instructed by physician to take 150mg BID, but tablets are not scored, so she takes 200mg in am and 100mg at HS. Active DULoxetine (CYMBALTA) 60 mg Capsule, Delayed Release(E.C.) Take 60 mg by mouth daily. Active cyanocobalamin, vitamin B-12, 1,000 mcg/mL Kit by Injection route. Active HYDROXYZINE PAMOATE (VISTARIL ORAL) Take by mouth 4 times daily as needed for Other (See Comment) (anxiety) Patient unable to verify mg of medication. Active sertraline (ZOLOFT) 100 mg tablet Take 150 mg by mouth daily. Active busPIRone (BUSPAR) 15 mg Tablet Take 15 mg by mouth. Active QUEtiapine (SEROquel) 100 mg tablet Take 100 mg by mouth 2 times daily. Active LORazepam (ATIVAN) 0.5 mg tablet Take 0.5 mg by mouth every 6 hours as needed for Anxiety. Active oxyCODONE-aceta minophen (PERCOCET) 10-325 mg Tablet Take 1 Tablet by mouth every 4 hours as needed for Pain. Max Daily Amount: 6 Tablets 12 Tablet 7 Active promethazine (PHENERGAN) 25 mg tablet Take 1 Tablet (25 mg) by mouth every 6 hours as needed for Nausea. 10 Tablet 7 Active ibuprofen (MOTRIN) 600 mg tablet Take 1 Tablet (600 mg) by mouth every 6 hours as needed for Pain, Moderate. 12 Tablet 7 Active ondansetron (ZOFRAN) 4 mg Tablet Take 1 Tablet (4 mg) by mouth every 8 hours as needed for Nausea/Emesis. 10 Tablet 7 Active HYDROcodone-janina taminophen (NORCO) 5-325 mg tablet Take 1 Tablet by mouth every 4 hours as needed for Pain, Severe. Max Daily Amount: 6 Tablets 15 Tablet 7 Active HYDROcodone-janina taminophen (NORCO) 5-325 mg tabletIndicatio ns:Abdominal pain, acute, left lower quadrant,Acute left flank pain Take 1 Tablet by mouth every 4 hours as needed for Pain. Max Daily Amount: 6 Tablets 12 Tablet 0 Active ondansetron (ZOFRAN ODT) 4 mg Tablet, Rapid Dissolve Take 1 Tablet (4 mg) by mouth every 6 hours as needed for Nausea or Nausea/Emesis. Dissolve tablet on top of tongue, then swallow with saliva. 10 Tablet 0 Active Active Problems Problem Noted Date Diagnosed Date Pyelonephritis 07/17/2018 Intractable vomiting with nausea Immunizations Immunization Administration Dates Next Due INFLUENZA VACCINE QUADRIVALENT 3 YR UP PF IM 09/2017 Family History Medical History Relation Name Comments Emphysema Father Healthy Mother Relation Name Status Comments Father Mother Social History Tobacco Use Types Packs/Day Years Used Date Smoking Tobacco: Never Smokeless Tobacco: Never Alcohol Use Standard Drinks/Week Comments No 0 (1 standard drink = 0.6 oz pur e alcohol) Comments No Sex and Gender Information Value Date Recorded Sex Assigned at Not on file Legal Sex Female 3:13 PM CDT Gender Identity Not on file Sexual Orientation Not on file Last Filed Vital Signs Vital Sign Reading Time Taken Comments Blood Pressure 113/80 09/16/2019 4:37 PM STEAM PRESS OPERATOR Pulse 79 09/16/2019 4:37 PM STEAM PRESS OPERATOR Temperature 36.4 C (97.6 F) 09/16/2019 1:11 PM STEAM PRESS OPERATOR Respiratory Rate 18 09/16/2019 4:37 PM STEAM PRESS OPERATOR Oxygen Saturation 95% 09/16/2019 4:37 PM STEAM PRESS OPERATOR Inhaled Oxygen Concentration - - Weight 79.4 kg (175 lb) 09/16/2019 1:11 PM STEAM PRESS OPERATOR Height 162.6 cm (5' 4 ) 09/16/2019 1:11 PM STEAM PRESS OPERATOR Body Mass Index 30.04 09/16/2019 1:11 PM STEAM PRESS OPERATOR Plan of Treatment Health Maintenance Due Date Last Done Comments HEPATITIS B VACCINES (1 of 3 - 19+ 3-dose series) 1989 10/02/2008 PAP SMEAR 1991 CERVICAL CANCER SCREENING 2000 HPV/Cotest (30-65) 2000 PAP SMEAR 2000 BREAST CANCER SCREENING 2010 COLORECTAL SCREENING 2015 Colorectal Cancer Screening 2015 FIT-DNA Q 3 years 2015 FIT/FOBT Q 1 year 2015 Flex Sig/CT Colonography Q 5 years 2015 ZOSTER VACCINE (1 of 2) 2020 DTAP/TDAP/TD VACCINES (2 - T d or Tdap) 10/28/2022 10/28/2012 INFLUENZA VACCINE (#1) 2024 07/17/2018 PNEUMOCOCCAL VACCINE 0-49 YEARS Aged Out No longer eligible based on patient's age to complete this topic Insurance MEDICARE PART A AND B Advance Directives For more information, please contact: [phone] * Full Code (Latest Code Status on File) Date Activated Date Inactivated Comments 07/16/2018 9:55 PM 07/19/2018 2:03 PM Care Teams Reservation Agent Relationship Specialty Start Date End Date Madhu Tilley MD [id number] [facility] [address] [facility] [address] [place] [address] PCP - General Internal Medicine 08/27/19
--- OUTSIDE RECORDS SUMMARY | 2024-11-15 10:52 | XMS_ITS | Clinical Summary ---
Author Organization [facility] Address [address] [place] [address] Care Team Providers Care Engraver Block Name Role Phone Kit Jonas MD Unavailable [phone] Madhu Tilley MD Primary Care Provider [phone] Allergies Active Allergy Reactions Criticality Noted Date Comments Esomeprazole Hives Reaction: Hives, Iodinated Contrast Media Ketorolac Ketorolac Tromethamine Urticaria Medium 10/01/2016 Metrizamide Angioedema High 10/15/2016 Prochlorperazine Unknown Venlafaxine Unknown 11/09/2014 With keppra Medications cyanocobalamin (Vitamin B-12) 1,000 mcg/mL injection INJECT 1 ML INTO THE MUSCLE Q MONTH 10 8 Active levETIRAcetam (KEPPRA) 1,000 mg tablet Take 1 tablet (1,000 mg total) by mouth 2 (two) times a day 2 8 Active LORazepam (ATIVAN) 0.5 mg tablet Take 1 tablet (0.5 mg total) by mouth 2 (two) times a day 0 8 Active multivitamin (DAILY MULTI-VITAMIN) tablet Take 1 tablet by mouth daily Active tiZANidine (ZANAFLEX) 4 mg tablet Take 1 tablet (4 mg total) by mouth 4 (four) times a day 2 8 Active topiramate (TOPAMAX) 200 mg tablet Take 1 tablet (200 mg total) by mouth daily with breakfast. 30 tablet 8 Active ondansetron ODT (ZOFRAN-ODT) 4 mg disintegrating tablet Take 1 tablet (4 mg total) by mouth every 8 (eight) hours as needed for nausea or vomiting. 20 tablet 8 Active dicyclomine (BENTYL) 20 mg tabletIndications:A bdominal Pain with Cramps Take 1 tablet (20 mg total) by mouth 2 (two) times a day for 10 days 20 tablet 9 Active ALPRAZolam (XANAX) 0.25 mg tabletIndications:a nxiety Take 1 tablet (0.25 mg total) by mouth nightly as needed for anxiety 12 tablet 9 Active ondansetron (ZOFRAN) 4 mg tablet Take 1 tablet (4 mg total) by mouth every 6 (six) hours 15 tablet [address] (PROTONIX) 20 mg EC tabletIndications:T reatment of Non-Bleeding Gastric Disorder Take 1 tablet (20 mg total) by mouth 2 (two) times a day 60 tablet 11 3 Active benzonatate (TESSALON) 200 mg capsuleIndications: Cough Take 1 capsule (200 mg total) by mouth 3 (three) times a day 20 capsule 3 Active HYDROcodone-acetami nophen (NORCO) 5-325 mg per tabletIndications:P ain Take 1 tablet by mouth every 6 (six) hours as needed for pain 30 tablet 3 Active phenazopyridine (PYRIDIUM) 100 mg tablet Take 1 tablet (100 mg total) by mouth 3 (three) times a day as needed for urinary pain 10 tablet 3 Active traMADoL (ULTRAM) 50 mg tablet Take 1 tablet (50 mg total) by mouth every 6 (six) hours 12 tablet 3 Active cyclobenzaprine (FLEXERIL) 5 mg tablet Take 1 tablet (5 mg total) by mouth 3 (three) times a day as needed (back pain) 20 tablet 4 Active Active Problems Problem Noted Date Diagnosed Date Abdominal pain 02/03/2023 Epigastric pain 02/03/2018 Intractable nausea and vomiting 02/03/2018 History of seizure 02/03/2018 Irregular heart beat 02/03/2018 Back pain 07/02/2016 Radicular leg pain 07/02/2016 Foot pain, right 07/19/2013 Lumbago 07/14/2013 B12 deficiency 04/07/2013 Chronic pain 04/07/2013 Depression 04/07/2013 H/O gastric bypass 04/07/2013 Seizure disorder Flank pain Anxiety Pyelonephritis Dehydration Surgical History Surgery Date Site/Laterality Comments OTHER SURGICAL HISTORY several hernia repair GASTRIC BYPASS gastric bypass CHOLECYSTECTOMY Cholecystectomy HYSTERECTOMY Hysterectomy OTHER SURGICAL HISTORY section x4 BOWEL RESECTION UMBILICAL HERNIA REPAIR Complications with mesh- currently on third mesh. COLON SURGERY FL FLUORO GUIDED LUMBAR PUNCTURE 10/15/2016 Right Medical History Medical History Date Comments Kidney stones Epilepsy (HCC) Irregular heart beat Bipolar disorder (HCC) Anxiety Bowel obstruction (HCC) Social History Tobacco Use Types Packs/Day Years Used Date Smoking Tobacco: Never Smokeless Tobacco: Never Tobacco Cessation:Counseling Given: Not Answered Alcohol Use Standard Drinks/Week Comments No 0 (1 standard drink = 0.6 oz pur e alcohol) Social Connection and Isolat ion Panel [NHANES] Answer Date Recorded In a typical week, how many times do you talk on the phone with family, friends, or neighbors? More than three times a week 02/04/2023 How often do you get togethe r with friends or relatives? More than three times a week 02/04/2023 How often do you attend chur ch or roman catholic services? Never 02/04/2023 Do you belong to any clubs o r organizations such as confucianism groups, unions, fraternal or athletic groups, or school groups? No 02/04/2023 How often do you attend meet ings of the clubs or organizations you belong to? Never 02/04/2023 Are you , , di vorced, , never , or living with a partner? 02/04/2023 Overall Financial Resource Strain (CARDIA) Answe r Date Recorded How hard is it for you to pa y for the very basics like food, housing, medical care, and heating? Not hard at all 02/04/2023 Hunger Vital Sign Answer Date Recorded Within the past 12 months, y ou worried that your food would run out before you got the money to buy more. Never true 02/05/20 23 Within the past 12 months, t he food you bought just didn't last and you didn't have money to get more. Never true 02/04/2023 PRAPARE - Transportation Answer Date Re corded In the past 12 months, has l ack of transportation kept you from medical appointments or from getting medications? No 01/15 In the past 12 months, has l ack of transportation kept you from meetings, work, or from getting things needed for daily living? No 02/04/2023 Housing Stability Vital Sign Answer Alfredo e Recorded In the last 12 months, was t here a time when you were not able to pay the mortgage or rent on time? No 02/04/2023 In the last 12 months, how many places have you lived? 1 02/04/2023 In the last 12 months, was t here a time when you did not have a steady place to sleep or slept in a mcc (including now)? No 02/04/2023 Housing Stability Vital Sign Answer Alfredo e Recorded In the last 12 months, was t here a time when you were not able to pay the mortgage or rent on time? No 02/04/2023 Number of Times Moved in the Last Year Not on fi le 02/04/2023 Homeless in the Last Year Not on file 2022 Personal Safety Answer Date Recorded Have you ever been in or are you currently in a harmful physical or emotional relationship or is someone making you feel afraid or unsafe? Denies 09/18/2023 Comments No Sex and Gender Information Value Date Recorded Sex Assigned at Not on file Legal Sex Female 2:16 AM CRYPTOGRAPHIC VULNERABILITY ANALYST Gender Identity Not on file Sexual Orientation Not on file Obstetrics History Last Filed Vital Signs Vital Sign Reading Time Taken Comments Blood Pressure 149/87 09/18/2023 7:03 PM CRYPTOGRAPHIC VULNERABILITY ANALYST Pulse 80 09/18/2023 7:03 PM CRYPTOGRAPHIC VULNERABILITY ANALYST Temperature 37 C (98.6 F) 09/18/2023 7:03 PM CRYPTOGRAPHIC VULNERABILITY ANALYST Respiratory Rate 16 09/18/2023 7:03 PM CRYPTOGRAPHIC VULNERABILITY ANALYST Oxygen Saturation 100% 09/18/2023 7:03 PM CRYPTOGRAPHIC VULNERABILITY ANALYST Inhaled Oxygen Concentration - - Weight 88.5 kg (195 lb) 09/18/2023 2:48 PM CRYPTOGRAPHIC VULNERABILITY ANALYST Height 162.6 cm (5' 4 ) 06/06/2023 12:45 PM CDT Body Mass Index 33.47 06/06/2023 12:45 PM CDT Plan of Treatment Health Maintenance Due Date Last Done Comments Colon Cancer Screening-Colonoscopy 1970 Depression Screening 1970 Hepatitis C Screening 1970 Regular Well Visit/Exam 18-64 1988 Breast Cancer Screening-Mammogram 05/10/2018 05/10/2017 Zoster Vaccine (1 of 2) 2020 DTaP/Tdap/Td Vaccine (2 - Td or Tdap) 10/28/2022 10/28/2012 Influenza Vaccine (#1) 2024 8, 07/17/2018, 2015 Hepatitis B Screening Completed 10/02/2008 Pneumococcal vaccine <65 Aged Out No longer eligible based on patient's age to complete this topic Procedures Procedure Name Priority Date/Time Associated Diagnosis Comments DIGITAL MAMMOGRAPHY Routine 05/10/2017 5 :10 PM CDT from Last 3 Months or Most Recently Relevant to Health Maintenance Results * DIGITAL MAMMOGRAPHY (05/10/2017 5:10 PM CDT) Anatomical Region Laterality Modality Breast Mammography 05/10/2017 5:10 PM CDT Narrative 05/10/2017 5:10 PM CDT Acc#: [id number] JOSE RAUL [id number] - Diag Mamm BI DATE OF EXAM: May 10 2017 12:10PM DIAGNOSIS: ABD PAIN CLINICAL HISTORY: rt. axillary adenopathy RESULT: ORIGINAL REPORT - ADDENDUM BELOW Examination: Bilateral diagnostic digital mammography with CAD History: 46-year-old asymptomatic female with provided history of right axillary adenopathy on physical examination. No personal or family history of breast cancer, no nipple discharge. Comparison:None, the patient has signed a consent form to obtain the outside mammographic studies. Findings: Craniocaudal, mediolateral oblique and medial lateral views of both breasts were obtained utilizing full field digital mammography. There are scattered fibroglandular densities. Scattered benign-appearing calcifications are seen in both breasts. There is no suspicious dominant mass, clustered microcalcification or architectural distortion. This examination has been subjected to R2/CAD analysis. IMPRESSION: 1. BI-RADS Category 0, incomplete. Need prior mammograms for comparison. 2. Comparison with prior mammographic examinations is recommended to document stability of the breast parenchyma. Attempts will be made to obtain the outside studies. Electronically signed by: Ivy Murray M.D. ADDENDUM #1 Prior mammographic examinations could not be obtained. Annual screening mammography, monthly self breast examinations and yearly breast examination by a physician are recommended. Overall assessment: BI-RADS Category 2, benign. Electronically signed by: Ivy Murray M.D. ADDENDUM #2 No old study available for comparison. BI-RADS 2: Benign finding. Recommend annual mammogram Electronically signed by: Marjorie Frias M.D. TECHNOLOGIST: SHANE DUMONT TECHNOLOGIST MEDICAL IMAGING INTRANET SPECIALIST: NURIA TRANSCRIBE DATE/TIME: May 11 2017 4:05P RADIOLOGIST: MARJORIE FRIAS M.D. READ ON: May 10 2017 3:22P ORDERING DR: NADIA BROWN M.D. THIS DOCUMENT HAS BEEN ELECTRONICALLY SIGNED BY: MARJORIE FRIAS M.D. ON: May 11 2017 4:05P Attending: DENG JACOBSON Requesting: NADIA BROWN Requesting Attending Attending ID: [id number] Requesting ID: [id number] Report To 1 ID: [id number] Report To 1 Name: DENG JACOBSON Report To 1 FAX: [phone] Report To 2 ID: Report To 2 Name: , Report To 2 FAX: -- NextGen Order #: Procedure Note Miscellaneous, Not In File / Provider, MD Keren - 05/11/2017 Acc#: [id number] JOSE RAUL [id number] - Diag Mamm BI DATE OF EXAM: May 10 2017 12:10PM DIAGNOSIS: ABD PAIN CLINICAL HISTORY: rt. axillary adenopathy RESULT: ORIGINAL REPORT - ADDENDUM BELOW Examination: Bilateral diagnostic digital mammography with CAD History: 46-year-old asymptomatic female with provided history of right axillary adenopathy on physical examination. No personal or family history of breast cancer, no nipple discharge. Comparison:None, the patient has signed a consent form to obtain the outside mammographic studies. Findings: Craniocaudal, mediolateral oblique and medial lateral views of both breasts were obtained utilizing full field digital mammography. There are scattered fibroglandular densities. Scattered benign-appearing calcifications are seen in both breasts. There is no suspicious dominant mass, clustered microcalcification or architectural distortion. This examination has been subjected to R2/CAD analysis. IMPRESSION: 1. BI-RADS Category 0, incomplete. Need prior mammograms for comparison. 2. Comparison with prior mammographic examinations is recommended to document stability of the breast parenchyma. Attempts will be made to obtain the outside studies. Electronically signed by: Ivy Murray M.D. ADDENDUM #1 Prior mammographic examinations could not be obtained. Annual screening mammography, monthly self breast examinations and yearly breast examination by a physician are recommended. Overall assessment: BI-RADS Category 2, benign. Electronically signed by: Ivy Murray M.D. ADDENDUM #2 No old study available for comparison. BI-RADS 2: Benign finding. Recommend annual mammogram Electronically signed by: Marjorie Frias M.D. TECHNOLOGIST: RICARDO COLVINOLOGIST MEDICAL IMAGING INTRANET SPECIALIST: [facility] TRANSCRIBE DATE/TIME: May 11 2017 4:05P RADIOLOGIST: MARJORIE FRIAS M.D. READ ON: May 10 2017 3:22P ORDERING DR: NADIA BROWN M.D. THIS DOCUMENT HAS BEEN ELECTRONICALLY SIGNED BY: MARJORIE FRIAS M.D. ON: May 11 2017 4:05P Attending: DENG JACOBSON Requesting: NADIA BROWN Requesting Attending Attending ID: [id number] Requesting ID: [id number] Report To 1 ID: [id number] Report To 1 Name: DENG JACOBSON Report To 1 FAX: [phone] Report To 2 ID: Report To 2 Name: , Report To 2 FAX: -- NextGen Order #: Nadia Brown MD IMG MAMMO PROCEDURES E dited Result - Final from Last 3 Months or Most Recently Relevant to Health Maintenance Additional Health Concerns Infection Onset Date Last Indicated MDR gram neg/ESBL Comment:ESBL E.coli urine 11/07/17, 11/15/17, 04/16/18, 02/21/19 11/07/2017 02/21/2019 Insurance [employer]WA MEDICARE [facility] CLAIMS OFFICE [facility] MEDICARE ADVANTAGE IDPA [facility] MEDICARE ADVANTAGE IDPA [facility] MEDICARE ADVANTAGE Advance Directives For more information, please contact: [phone] * Full Code (Latest Code Status on File) Date Activated Date Inactivated Comments 02/03/2023 7:52 PM 02/05/2023 5:54 PM * Full Code Date Activated Date Inactivated Comments 04/19/2018 11:35 AM 04/20/2018 8:58 PM * Full Code Date Activated Date Inactivated Comments 02/03/2018 12:56 AM 02/04/2018 7:24 PM Care Teams Engraver Block Relationship Specialty Start Date End Date Madhu Tilley MD PCP - General 07/04/20 Kit Jonas MD Surgeon General Surgery 02/04/18
--- OUTSIDE RECORDS SUMMARY | 2024-11-15 10:52 | XMS_ITS | Clinical Summary ---
Author Organization [facility] Address [address] [place] [address] Care Team Providers Care Flux Core Welder Name Role Phone Madhu Tilley MD Primary Care Provider [phone] Source Comments [facility],non-owned Affiliates and Associated Physician Practices is amultiple site organization consisting of ambulatory clinics and hospital sitesin [place], [place], [place] and [place]. This disclosure is being madepursuant to the Care Everywhere program and may not contain all information available regarding this patient. Last updated 18.[facility] Allergies Active Allergy Reactions Criticality Noted Date Comments Contrast-Iodinated Agents For Ct/Other Angioedema High 10/15/2016 Povidone Iodine Swelling High 10/25/2013 Ketorolac Tromethamine Urticaria Medium 10/01/2016 Esomeprazole Urticaria Medium 01/30/2013 Ketorolac 01/30/2013 Rash if taken with PPI Medications * Be aware that medications may not be up to date on this document. Alwaysverify current medications with the patient. Medication Sig Dispensed Refills Start Date End Date Status tiZANidine (ZANAFLEX) 4 MG tabletIndications :Muscle Spasticity Take 1 (one) tablet by mouth every 6 hours as needed for Muscle Spasms Reasons: Muscle Spasticity Active acetaminophen (Tylenol) 325 MG tablet Take 2 (two) tablets by mouth every 6 hours as needed Maximum allowable Acetaminophen amount = 4 Grams (4000 mg) / 24 hours. 09/17/2022 Active vitamin D, ergocalciferol, (Drisdol) 1.25 MG (13809 UT) capsule Take 1 (one) capsule by mouth every 7 days 12 capsule 09/18/2022 Active omeprazole (PriLOSEC) 20 MG capsule Take 1 (one) capsule by mouth once daily 30 capsule 09/17/2022 Active topiramate (Topamax) 100 MG tabletIndications :Migraine Take 1 (one) tablet by mouth 2 times daily Reasons: Migraine Headache Active cetirizine (ZyrTEC) 10 MG tablet Take 1 (one) tablet by mouth once daily Active senna-docusate (Senokot-S) 8.6-50 MG tablet Take 1 (one) tablet by mouth 2 times daily as needed for Constipation 03/17/2023 Active magnesium hydroxide (Milk Of Magnesia) 400 MG/5ML suspension Take 15 mL by mouth as needed for Constipation 03/17/2023 Active levETIRAcetam (Keppra) 100 MG/ML oral solution Take 10 mL by mouth 2 times daily for 30 days 600 mL 03/21/2023 Active ondansetron, disintegrating, (Zofran ODT) 4 MG tablet Take 1 (one) tablet by mouth every 6 hours as needed for Nausea/Vomiting Allow tablet to dissolve on the tongue 20 tablet 03/22/2023 Active metoclopramide (Reglan) 10 MG tablet Take 1 (one) tablet by mouth 4 times daily - before meals & nightly 120 tablet 03/23/2023 Active senna-docusate (Senokot-S) 8.6-50 MG tablet Take 1 (one) tablet by mouth 2 times daily as needed for Constipation 03/30/2023 Active magnesium hydroxide (Milk Of Magnesia) 400 MG/5ML suspension Take 15 mL by mouth as needed for Constipation 03/30/2023 Active scopolamine (Transderm-Scop) 1 MG patch Apply 1 (one) patch to skin every 72 hours as needed for Other 4 patch 04/02/2023 Active fluticasone propionate (Flonase) 50 MCG/ACT nasal spray [place] 2 (two) sprays into each nostril once daily as needed Active melatonin 3 MG tablet Take 1 (one) tablet by mouth at bedtime 04/03/2023 Active traMADol (Ultram) 50 MG tablet Take 1 (one) tablet by mouth every 6 hours as needed 12 tablet 04/03/2023 Active sucralfate (Carafate) 1 GM/10ML suspension Take 10 mL by mouth 4 times daily - before meals & nightly 1200 mL 04/03/2023 Active Active Problems Patient Care Coordination No te Formatting of this note migh t be different from the original. Has seen Dr. Santos in the past for kidney stones. Problem Noted Date Diagnosed Date Transaminitis 03/29/2023 S/P gastric surgery 03/16/2023 Gastroparesis 03/16/2023 S/P gastric bypass 11/10/2022 History of gastric bypass 09/09/2022 Intractable abdominal pain 09/09/2022 Small bowel obstruction 07/12/2022 S/P bariatric surgery 04/15/2022 Intractable epigastric abdominal pain 04/15/2022 Hypomagnesemia 04/07/2022 Intestinal obstruction 04/07/2022 Upper abdominal pain 12/26/2021 Abdominal pain, right lower quadrant 02/19/2021 Abdominal pain, epigastric 11/16/2018 Intractable pain 11/16/2018 Abdominal pain, generalized 11/04/2018 Nausea 11/04/2018 Abdominal pain, acute 05/20/2018 Lower abdominal pain 02/28/2018 Chest crackles 07/31/2014 Foot pain, right 07/19/2013 Lumbago 07/14/2013 H/O gastric bypass 04/07/2013 Chronic pain 04/07/2013 B12 deficiency 04/07/2013 Depression 04/07/2013 Gastric bypass status for obesity Abdominal adhesions Resolved Problems Problem Noted Date Diagnosed Date Resolved Date Dehydration 11/04/2018 11/18/2018 UTI (urinary tract infection) 12/30/2016 01/13/2017 Immunizations Name Administration Dates Next Due Covid Moderna primary monovalent 12+ yr 0.5mL ,05/28/2021 Family History Medical History Relation Name Comments Depression Brother 1 Diabetes Father Emphysema Father Hypertension Father Heart Disease Maternal Grandfather Aneurysm Maternal Grandmother Diabetes Mother Hypertension Mother Migraine Mother Depression Sister Alcohol abuse Neg Hx Arthritis - Osteo Neg Hx Arthritis - Rheumatoid Neg Hx Asthma Neg Hx Bipolar Disorder Neg Hx Cancer Neg Hx Drug Abuse Neg Hx Heart Failure Neg Hx Hypercholesterolemia Neg Hx Rashes/Skin Problems Neg Hx Schizophrenia Neg Hx Seizures Neg Hx Stroke Neg Hx Thyroid Disease Neg Hx Relation Name Status Comments Brother 1 Alive Brother 2 Alive Father Maternal Grandfather Maternal Grandmother Mother Alive Sister Alive Social History Tobacco Use Types Packs/Day Years Used Date Smoking Tobacco: Never Smokeless Tobacco: Never Alcohol Use Standard Drinks/Week Comments Not Currently 0 (1 standard drink = 0.6 oz pur e alcohol) 3-4 times a year AUDIT-C Answer Date Recorded Q1: How often do you have a drink containing alcohol? Never 03/16/2023 Q2: How many drinks containi ng alcohol do you have on a typical day when you are drinking? Patient does not drink Q3: How often do you have si x or more drinks on one occasion? Never 03/16/2023 Overall Financial Resource Strain (CARDIA) Answe r Date Recorded How hard is it for you to pa y for the very basics like food, housing, medical care, and heating? Not hard at all 03/30/2023 [facility] [place] [facility] Occupat ional Health - Occupational Stress Questionnaire Answer Date Recorded Do you feel stress - tense, restless, nervous, or anxious, or unable to sleep at night because your mind is troubled all the time - these days? Only a little 03/30/2023 Hunger Vital Sign Answer Date Recorded Within the past 12 months, y ou worried that your food would run out before you got the money to buy more. Never true 03/30/20 23 Within the past 12 months, t he food you bought just didn't last and you didn't have money to get more. Never true 03/30/2023 PRAPARE - Transportation Answer Date Re corded In the past 12 months, has l ack of transportation kept you from medical appointments or from getting medications? No 03/16 In the past 12 months, has l ack of transportation kept you from meetings, work, or from getting things needed for daily living? No 03/30/2023 Housing Stability Vital Sign Answer Alfredo e Recorded In the last 12 months, was t here a time when you were not able to pay the mortgage or rent on time? No 03/30/2023 In the last 12 months, how many places have you lived? 1 03/30/2023 In the last 12 months, was t here a time when you did not have a steady place to sleep or slept in a prison (including now)? No 03/30/2023 Sex and Gender Information Value Date Recorded Sex Assigned at Female Gender Identity Female Sexual Orientation Straight Last Filed Vital Signs Vital Sign Reading Time Taken Comments Blood Pressure 112/76 04/03/2023 7:43 AM CDT Pulse 54 04/03/2023 7:43 AM CDT Temperature 36.6 C (97.9 F) 04/03/2023 7:43 AM CDT Respiratory Rate 18 04/03/2023 7:43 AM CDT Oxygen Saturation 97% 04/03/2023 7:43 AM CDT Inhaled Oxygen Concentration 21% 12/05/2016 9 :02 AM CDT Weight 81.6 kg (180 lb) 03/29/2023 8:46 PM CDT Height 162.6 cm (5' 4.02 ) 03/29/2023 8:46 PM CD T Body Mass Index 30.88 03/29/2023 8:46 PM CDT Plan of Treatment Health Maintenance Due Date Last Done Comments COLOGUARD (AGES 45-75) - COLON CA SCREENING 1970 COLON MONITORING 1970 COLONOSCOPY - COLON CA SCREENING 1970 CT COLONOGRAPHY - COLON CA SCREENING 1970 Colorectal Cancer Screening 1970 FIT - COLON CA SCREENING 1970 FLEX SIG - COLON CA SCREENING 1970 PAP SMEAR 1970 DTAP/TDAP/TD VACCINES (1 - Tdap) 1989 HEPATITIS B VACCINE (1 of 3 - 19+ 3-dose series) 1989 MAMMOGRAM 03/16/2013 03/16/2011 (Prev iously completed) LIPID TESTING 09/22/2018 09/22/2013 PNEUMOCOCCAL VACCINE 50+ (1 of 1 - PCV) 2020 ZOSTER VACCINE (1 of 2) 2020 COVID-19 VACCINE (3 - season) 2024 07/01/2021, 05/28/2021 INFLUENZA VACCINE (#1) 2024 07/17/2018 DEPRESSION SCREENING 08/16/2024 MEDICARE AWV CALENDAR YEAR 2024 SCREENING FOR DIABETES 04/03/2026 3, 04/02/2023, 04/01/2023, Additional history exists HIV SCREENING Completed 10/13/2018 HEPATITIS C SCREENING Completed 02/21/2021 HIB VACCINE Aged Out No longer eligi ble based on patient's age to complete this topic HPV VACCINE Aged Out No longer eligi ble based on patient's age to complete this topic MENINGOCOCCAL (Group B) VACCINE SHARED DECISION-MAKING Aged Out No longer eligible based on patient's age to complete this topic MENINGOCOCCAL GROUPS A/C/Y/W VACCINE Aged Out No longer eligible based on patient's age to complete this topic PNEUMOCOCCAL VACCINE Aged Out No long er eligible based on patient's age to complete this topic Medical Devices Implanted Type Area Sports Book Server Device Identifier Shelf Expiration Date Model / Serial / Lot Graft Tissue Nushield 3x2cm [facility] - [id number] Implanted:Qty: 1 on 10/22/2021 by Ramone Galloway MD at [facility] N/A: Back [employer] 05/05/2025 [id number] / [id number] / Procedures Procedure Name Priority Date/Time Associated Diagnosis Comments BASIC METABOLIC PANEL (CALCIUM TOTAL) Routine 04/03/2023 3:08 AM CDT HEPATITIS SCREEN ACUTE Routine 02/21/2021 3:19 AM CDT HIV-1 HIV-2 ANTIGEN/ANTIBODY STAT 10/13/2018 11:33 AM PIPE SMOKING MACHINE OFFBEARER LIPID PROFILE Routine 09/22/2013 2:15 PM PIPE SMOKING MACHINE OFFBEARER Major Depressive Disorder, Recurrent Episode, Mild from Last 3 Months or Most Recently Relevant to Health Maintenance Results * (ABNORMAL) BASIC METABOLIC PANEL (CALCIUM TOTAL) (04/03/2023 3:08 AM CDT) Pathologist [facility] Glucose 84 70 - 105 mg/dL 04/03/2023 4:27 AM CDT [facility] Sodium 140 136 - 145 mmol/L 04/03/2023 4:27 AM CDT [facility] Potassium 3.9 3.5 - 5.1 mmol/L 04/03/2023 4:27 AM CDT [facility] Chloride 109(H) 98 - 107 mmol/L 04/03/2023 4:27 AM CDT [facility] CO2 23 22 - 29 mmol/L 04/03/2023 4:27 AM CDT [facility] Calcium 9.2 8.4 - 10.4 mg/dL 04/03/2023 4:27 AM CDT [facility] Anion Gap 8 6 - 16 mmol/L 04/03/2023 4:27 AM CDT [facility] BUN 16 7 - 26 mg/dL 04/03/2023 4:27 AM CDT [facility] Creatinine 0.69 0.57 - 1.11 mg/dL 04/03/2023 4:27 AM CDT [facility] eGFR by CKD-EPI >90 >=90 mL/min/1.7 3 m2 04/03/2023 4:27 AM CDT [facility] Blood BLOOD SPECIMEN / Unknown Venipuncture / Unknown 04/03/2023 3:08 AM CDT 04/03/2023 4:09 AM CDT Jacqueline Jerome HIDE SORTER-YARN EXAMINER [facility] [place] ORDERABLES Performing Organization Address [facility] Co de Phone Number [facility] [address] [place] [id number] * HEPATITIS SCREEN ACUTE (02/21/2021 3:19 AM CDT) Pathologist [facility] HAV Antibody IgM Non Reactive Non Reactive 02/21/2021 4:52 AM CDT [facility] HBsAg Non Reactive Non Reactive 02/21/2021 4:52 AM CDT [facility] HBc Antibody IgM Non Reactive Non Reactive 02/21/2021 4:52 AM CDT [facility] HCV Antibody Screen Non Reactive Non Reactive 02/21/2021 4:52 AM CDT [facility] Blood BLOOD SPECIMEN / Unknown Venipuncture / Unknown 02/21/2021 3:19 AM CDT 02/21/2021 4:01 AM CDT Narrative [facility] - 02/21/2021 4:52 AM CDT Non Reactive - Antibodies to Hepatitis C virus (HCV) were not detected, result does not exclude early acute HCV infection. Rylie Villalobos MD LAB - CHEMISTRY LUC [facility] Performing Organization Address [facility] Co de Phone Number [facility] [address] [place] [phone] * HIV-1 HIV-2 ANTIGEN/ANTIBODY (10/13/2018 11:33 AM PIPE SMOKING MACHINE OFFBEARER) HIV Antigen/Antibod y 1 & 2 Non-reacti ve Non-react fredrick 10/13/2018 12:39 PM PIPE SMOKING MACHINE OFFBEARER [facility] Comment: Neither HIV-1 p24 Antigen nor HIV-1/HIV-2 Antibodies are detected. Blood BLOOD SPECIMEN / Unknown Venipuncture / Unknown 10/13/2018 11:33 AM PIPE SMOKING MACHINE OFFBEARER 10/13/2018 11:45 AM PIPE SMOKING MACHINE OFFBEARER Scott Chun MD LAB - HEMATOLOGY ORD ERABLES [facility] [address] [phone] * LIPID PROFILE (09/22/2013 2:15 PM PIPE SMOKING MACHINE OFFBEARER) Cholesterol 149 <200 mg/dL 09/22/2013 3:18 PM PIPE SMOKING MACHINE OFFBEARER [facility] Triglycerides 79 <150 mg/dL 09/22/2013 3:18 PM PIPE SMOKING MACHINE OFFBEARER [facility] HDL Cholesterol 66 >40 mg/dL 4 3:18 PM PIPE SMOKING MACHINE OFFBEARER [facility] Chol HDL Ratio 2.3 1.0 - 6.0 09/22/2013 3:18 PM PIPE SMOKING MACHINE OFFBEARER [facility] LDL Calculated 67 65 - 130 mg/dL 09/22/2013 3:18 PM PIPE SMOKING MACHINE OFFBEARER [facility] VLDL Calculated 16 10 - 40 mg/dL 09/22/2013 3:18 PM PIPE SMOKING MACHINE OFFBEARER [facility] Blood BLOOD SPECIMEN / Unknown Venipuncture / Unknown 09/22/2013 2:15 PM PIPE SMOKING MACHINE OFFBEARER 09/22/2013 2:29 PM PIPE SMOKING MACHINE OFFBEARER Narrative [facility] - 09/22/2013 3:18 PM PIPE SMOKING MACHINE OFFBEARER Lipid Profile Comment: CHOLESTEROL LEVEL..................CLINICAL INTERPRETATION LESS THAN 200 MG/DL..............................DESIRABLE 200-239 MG/DL..............................BORDERLINE HIGH GREATER THAN 240 MG/DL................................HIGH LDL-CHOLESTEROL LEVEL..............CLINICAL INTERPRETATION LESS THAN 100 MG/DL................................OPTIMAL 100-129 MG/DL.................................NEAR OPTIMAL GREATER THAN 160 MG/DL...........................HIGH RISK HDL RISK LEVEL GREATER THEN 60 MG/DL............................DECREASED 40-60 MG/DL........................................AVERAGE LESS THAN 40 MG/DL...............................INCREASED TRIGLYCERIDE LEVEL..................CLINICAL INTERPRETATION LESS THAN 150 MG/DL...............................DESIRABLE 150-199 MG/DL...............................BORDERLINE HIGH 200-499 MG/DL..........................................HIGH GREATER THAN 500..................................VERY HIGH THE NATIONAL CHOLESTEROL EDUCATION PROGRAM HAS SET THE ABOVE GUIDELINES (REFERANCE VALUES) FOR CHOLESTEROL AND HDL. RISK ASSOCIATED WITH CHOLESTEROL/HDL RATIOS RISK....................MALE RATIO.............FEMALE RATIO 1/2 AVERAGE.................<3.4.......................<3.3 LOW RISK.................... 4.0 ...................... 3.8 AVERAGE..................... 5.0 ...................... 4.5 2X AVERAGE.................. 9.5 ...................... 7.0 3X AVERAGE...................>23........................>11 Angelina Julian NOAH LAB - CHEMISTRY LUC [facility] Organization Address City/State/[facility] Co de Phone Number [facility] [address] from Last 3 Months or Most Recently Relevant to Health Maintenance Additional Health Concerns Infection Onset Date Last Indicated ESBL Hx Comment:urine 11/08/2018 03/16/2023 Advance Directives * Full Code (Latest Code Status on File) Date Activated Date Inactivated Comments 03/29/2023 8:27 PM 04/03/2023 6:06 PM * Full Code Date Activated Date Inactivated Comments 03/29/2023 8:16 PM 03/29/2023 8:27 PM * Full Code Date Activated Date Inactivated Comments 03/16/2023 7:14 AM 03/21/2023 7:39 PM * Full Code Date Activated Date Inactivated Comments 11/10/2022 7:26 AM 11/12/2022 6:26 PM * Full Code Date Activated Date Inactivated Comments 09/09/2022 12:36 PM 09/17/2022 2:57 PM Care Teams Flux Core Welder Relationship Specialty Start Date End Date Madhu Tilley MD [address] [place] [address] PCP - General Internal Medicine 03/17/23
--- OUTSIDE RECORDS SUMMARY | 2024-11-15 10:52 | XMS_ITS | Clinical Summary ---
Author Organization [facility] Address [address] [place] [address] Phone Care Team Providers Care Car Shifter Name Role Phone Madhu Tilley MD Primary Care Provider [phone] Allergies Active Allergy Reactions Criticality Noted Date Comments Iodinated Contrast Media Shortness of Breath 08/31/2023 Pt states she is able to tolerate if she is pre-medicated. Esomeprazole Hives 08/31/2023 Ketorolac Tromethamine Hives 08/31/2023 Medications cyclobenzaprine (FLEXERIL) 5 MG Tablet Take 1 Tablet by mouth 3 times daily as needed for Muscle spasms. 15 Tablet 08/31/2023 Active traMADol (ULTRAM) 50 MG TabletIndicatio ns:Cervical strain, acute,Lumbar strain Take 1 Tablet by mouth every 8 hours as needed for Moderate or more severe pain. 20 Tablet 08/31/2023 Active Social History Tobacco Use Types Packs/Day Years Used Date Smoking Tobacco: Never Smokeless Tobacco: Never Tobacco Cessation:Counseling Given: Not Answered Alcohol Use Standard Drinks/Week Comments Never 0 (1 standard drink = 0.6 oz pur e alcohol) Comments Unknown Sex and Gender Information Value Date Recorded Sex Assigned at Not on file Legal Sex Female 8:03 PM CDT Gender Identity Not on file Sexual Orientation Not on file Last Filed Vital Signs Vital Sign Reading Time Taken Comments Blood Pressure 177/89 08/31/2023 5:00 PM BUSINESS ACCOUNT EXECUTIVE Pulse 79 08/31/2023 5:00 PM BUSINESS ACCOUNT EXECUTIVE Temperature 36.9 C (98.4 F) 08/31/2023 3:04 PM BUSINESS ACCOUNT EXECUTIVE Respiratory Rate 17 08/31/2023 3:30 PM BUSINESS ACCOUNT EXECUTIVE Oxygen Saturation 99% 08/31/2023 5:00 PM BUSINESS ACCOUNT EXECUTIVE Inhaled Oxygen Concentration - - Weight 90.7 kg (200 lb) 08/31/2023 3:15 PM BUSINESS ACCOUNT EXECUTIVE Height 162.6 cm (5' 4 ) 08/31/2023 3:04 PM BUSINESS ACCOUNT EXECUTIVE Body Mass Index 34.33 08/31/2023 3:04 PM BUSINESS ACCOUNT EXECUTIVE Plan of Treatment Health Maintenance Due Date Last Done Comments Hepatitis C Virus (HCV) Screening 1970 Mammogram 1970 Pap Smear 1991 Cervical Cancer Screening (CCS) 2000 HPV/Cotest 2000 Hepatitis B Immunization (2 of 3 - 19+ 3-dose series) 10/30/2008 10/02/2008 Colonoscopy 2015 Colorectal Cancer Screening 2015 Cologuard 2020 Immunochemical Fecal Occult Blood 2020 Pneumococcal Immunization (5 0+ years) (1 of 1 - PCV) 2020 Zoster Immunization (1 of 2) 2020 Influenza Immunization (#1) 04/16/202409/2017, 07/17/2018 SARS-COV-2 Immunization (3 - season) 2024 07/01/2021, 05/28/2021 Respiratory Syncytial Virus (RSV) Immunization (Adult) (1 - 1-dose 75+ series) 2045 DTaP/Tdap/Td Immunization Discontinued 10/28/2012 TdaP Immunization Completed 10/28/2012 Meningococcal Immunization (ACWY) Aged Out No longer eligible based on patient's age to complete this topic Rotavirus Immunization Aged Out No lo nger eligible based on patient's age to complete this topic Insurance [place] C [facility] Care Teams Car Shifter Relationship Specialty Start Date End Date Madhu Tilley MD [address] [place], [place] [id number] PCP - General Internal Medicine 08/31/23
--- OUTSIDE RECORDS SUMMARY | 2024-11-15 10:52 | XMS_ITS | Referral Summary ---
Author Organization [facility] Address [address] [place] [address] Care Team Providers Care Principal Clerk Typist Name Role Phone Kit Jonas MD Unavailable [phone] Madhu Tilley MD Primary Care Provider [phone] Allergies Active Allergy Reactions Criticality Noted Date [...] Seizure disorder Flank pain Anxiety Pyelonephritis Dehydration Social History Tobacco Use Types Packs/Day Years [...] often do you attend chur ch or episcopal services? Never 02/04/2023 Do you belong to any clubs o r organizations such as tenriism groups, unions, fraternal or athletic groups, or [...] slept in a prison (including now)? No 02/04/2023 Housing Stability Vital [...] on file Legal Sex Female 2:16 AM MOLD PREPARER Gender Identity Not on file Sexual Orientation Not on file Last Filed Vital Signs Vital Sign Reading Time Taken Comments Blood Pressure 149/87 09/18/2023 7:03 PM MOLD PREPARER Pulse 80 09/18/2023 7:03 PM MOLD PREPARER Temperature 37 C (98.6 F) 09/18/2023 7:03 PM MOLD PREPARER Respiratory Rate 16 09/18/2023 7:03 PM MOLD PREPARER Oxygen Saturation 100% 09/18/2023 7:03 PM MOLD PREPARER Inhaled Oxygen Concentration - - Weight 88.5 kg (195 lb) 09/18/2023 2:48 PM MOLD PREPARER Height 162.6 cm (5' 4 ) 06/06/2023 12:45 PM CDT Body Mass Index 33.47 06/06/2023 12:45 PM CDT Plan of Treatment Not on file Procedures Procedure Name Priority Date/Time Associated Diagnosis Comments DIGITAL MAMMOGRAPHY Routine 05/10/2017 5 :10 PM CDT from Last 3 Months or Most Recently Relevant to Health Maintenance Results * DIGITAL MAMMOGRAPHY (05/10/2017 5:10 PM CDT) Anatomical Region Laterality Modality Breast Mammography 05/10/2017 5:10 PM CDT Narrative 05/10/2017 5:10 PM CDT Acc#: [id number] JOSE RAUL [id number] - Diag Mamm BI [...] M.D. TECHNOLOGIST: SHANE DUMONT TECHNOLOGIST [facility] NURSE: [facility] TRANSCRIBE DATE/TIME: May 11 2017 4:05P RADIOLOGIST: MARJORIE FRIAS M.D. READ ON: May 10 2017 3:22P ORDERING DR: NADIA BROWN M.D. THIS DOCUMENT HAS BEEN ELECTRONICALLY SIGNED BY: MARJORIE FRIAS M.D. ON: May 11 2017 4:05P Attending: DENG JACOBSON Requesting: NADIA BROWN Requesting Attending Attending ID: [id number] Requesting ID: [id number] Report To 1 ID: [id number] Report To 1 Name: DENG JACOBSON Report To 1 FAX: [phone] Report To 2 ID: Report To 2 Name: , Report To 2 FAX: -- NextGen Order #: Procedure Note Miscellaneous, Not In File / Provider, MD Keren - 05/11/2017 Acc#: [id number] JOSE RAUL 0015 - Diag Mamm BI [...] M.D. TECHNOLOGIST: SHANE DUMONT [facility]CHN[facility] NURSE: NURIA TRANSCRIBE DATE/TIME: May 11 2017 4:05P RADIOLOGIST: MARJORIE FRIAS M.D. READ ON: May 10 2017 3:22P ORDERING DR: NADIA BROWN M.D. THIS DOCUMENT HAS BEEN ELECTRONICALLY SIGNED BY: MARJORIE FRIAS M.D. ON: May 11 2017 4:05P Attending: DENG JACOBSON Requesting: NADIA BROWN Requesting Attending Attending ID: [id number] Requesting ID: [id number] Report To 1 ID: [id number] Report To 1 Name: DENG JACOBSON Report To 1 FAX: [phone] Report To 2 ID: Report To 2 Name: , Report To 2 FAX: -- NextGen Order #: Nadia Brown MD IMG MAMMO PROCEDURES E dited Result - Final from Last 3 Months or Most Recently Relevant to Health Maintenance Additional Health Concerns Infection Onset Date Last Indicated MDR gram neg/ESBL Comment:ESBL E.coli urine 11/07/17, 11/15/17, 04/16/18, 02/21/19 11/07/2017 02/21/2019 Insurance IDPA MEDICARE [facility] Address[place] [address] [address] [place] [address] [facility] CLAIMS OFFICE [facility] MEDICARE ADVANTAGE [address] [place] [address] [facility] MEDIC[facility] ADVANTAGE IDPA [facility] MEDICARE ADVANTAGE Advance Directives For more information, please contact: [phone] * Full Code (Latest Code Status on File) Date Activated Date Inactivated Comments 02/03/2023 7:52 PM 02/05/2023 5:54 PM * Full Code Date Activated Date Inactivated Comments 04/19/2018 11:35 AM 04/20/2018 8:58 PM * Full Code Date Activated Date Inactivated Comments 02/03/2018 12:56 AM 02/04/2018 7:24 PM Care Teams Principal Clerk Typist Relationship Specialty Start Date End Date Madhu Tilley MD PCP - General 07/04/20 Kit Jonas MD Surgeon General Surgery 02/04/18
--- OUTSIDE RECORDS SUMMARY | 2024-11-15 10:52 | XMS_ITS | CONTINUITY OF CARE DOCUMENT ---
Author Name bruno carr Address Unknown Organization [facility] Address [address] [place] [address] Phone [phone] Care Team Providers Care Track Laminating Machine Tender Name Role Phone Liseth GUERRERO, Yung Unavailable [phone] GAVINO QUINTEROS MD Unavailable MADDY BAIRD MD Unavailable [phone] PROBLEMS Condition Status Date Provider Notes h/o Kidney stones active Yung Childers MD HTN active Yung Childers MD OBESITY;CAUSE OF SOB? active Jaime Beck MD DYSPNEA ON EXERTION;WILL DO SPIROMETRY active Jaime Beck MD LVH;NML EF 02/21 active Jaime Beck MD SHORTNESS OF BREATH;NML, CXR , BNP AND DDIMER 09 active Jaime Beck MD CHEST PAIN-02/21 NUC NEG active Jaime alberto MD ENCOUNTERS Date Type Provider Location Encounter Diag nosis - In-person encounter Office Visit Yung Childers MD [facility] HTNh/o Kidney stones - In-person encounter Office Visit Yung Childers MD [facility] - In-person encounter Office Visit Yung Childers MD [facility] - In-person encounter Office Visit Yung Childers MD [facility] - In-person encounter Office Visit Jaime Beck MD [facility] CHEST PAIN-02/21 NUC NEGSHORTNESS OF BREATH;NML, CXR, BNP AND DDIMER 09LVH;NML EF 02/21DYSPNEA ON EXERTION;WILL DO SPIROMETRYOBESITY;CA USE OF SOB? VITAL SIGNS Date Observation Value Provider Body Mass Index (Ratio) 32.78 kg/m2 Bud Childers MD blood pressure, diastolic 62 mm[Hg] Colton pickering [place] blood pressure, systolic 100 mm[Hg] Savannah gabriel [place] oxygen saturation, oximetry 99 % Vito [place] respiratory rate E&M 16 /min [place] pulse rate 76 /min [place] weight E&M 197 [lb_av] [place] height E&M 65 [in_i] [facility] Body Mass Index (Ratio) 32.45 kg/m2 Bud Childers MD blood pressure, cuff size regular Ke rri Jory blood pressure, diastolic 66 mm[Hg] Ke rri Jory blood pressure, systolic 110 mm[Hg] Cely Corley oxygen saturation, oximetry 97 % Nadia Corley respiratory rate E&M 18 /min Nadia giles pulse rate 42 /min Nadia vazquez weight E&M 195 [lb_av] Nadia Blackman [facility] height E&M 65 [in_i] Nadia Blackman [facility] Body Mass Index (Ratio) 33.28 kg/m2 Bud Childers MD blood pressure, cuff size regular Ke rri Jory blood pressure, diastolic 74 mm[Hg] Ke jacei Jory blood pressure, systolic 116 mm[Hg] Cely Corley oxygen saturation, oximetry 98 % Nadia Diazkhanh respiratory rate E&M 18 /min Nadia Portillo alclivejarod pulse rate 75 /min Nadia Blackman [facility] weight E&M 200 [lb_av] Nadia Diazyocastajenniferjose vazquez height E&M 65 [in_i] Nadia Diazyocastaethandereck [facility] Body Mass Index (Ratio) 32.95 kg/m2 Bud Childers MD blood pressure, cuff size regular Ke kiran Jory height E&M 65 [in_i] Nadia Hiral vazquez blood pressure, diastolic 80 mm[Hg] Ke kiran Jory blood pressure, systolic 122 mm[Hg] Cely aragon Jory oxygen saturation, oximetry 99 % Nadia oJry respiratory rate E&M 18 /min Nadia Portillo tisha pulse rate 87 /min Nadia Diazyocastadelano [facility] weight E&M 198 [lb_av] Nadia Diazoctavio [facility] blood pressure, diastolic 60 mm[Hg] Kyung sherman [place] blood pressure, systolic 101 mm[Hg] Koko woo [place] pulse rate 75 /min David [place] oxygen saturation, oximetry 99 % David [place] respiratory rate E&M 16 /min David [place] weight E&M 264 [lb_av] David [place] ALLERGIES Allergy Name Onset Date Reaction Criticality Status TORADOL Low Criticality active HISTORY OF MEDICATION USE Medication Status Instructions Dates Provider Indications Com ments LISINOPRIL 5 MG ORAL TABLET active ONE TAB. DAILY Yung Childers MD BUSPIRONE HCL 15 MG ORAL TABLET active take one pill twice a day Nadia Corley HYDROXYZINE HCL 50 MG ORAL TABLET active take one pill 4 times a day as needed Nadia Diazhkanh ATIVAN 0.5 MG ORAL TABLET active take one pill twice a day Nadia Diazkhanh ZOLOFT 100 MG ORAL TABLET completed once a day - Nadia Diazkhanh QUETIAPINE FUMARATE 100 MG ORAL TABLET active take one pill twice a day Nadia Diazkhanh KEPPRA 500 MG ORAL TABLET active take one pill twice a day Nadia Diazkhanh TIZANIDINE HCL 4 MG ORAL CAPSULE active take one pill 4 times a day Nadia Diazkhanh TOPAMAX 200 MG ORAL TABLET active 1 tablet by mouth twice daily David Man[place]og[place]era PREVACID 30 MG ORAL CAPSULE DELAYED RELEASE completed ONE TAB. DAILY - David Manromero ASPIRIN 81 MG ORAL TABLET completed ONE TAB. DAILY - Nadia Jory SOCIAL HISTORY Date Observation Value Provider social history reviewed E&M revi ewed - no changes required Yung Childers MD social history E&M Marital Statu s: L kayla with family/friends E thnicity: Smoking History: P nuzhat has never smoked. Yung Childers MD physical exercise, f requency, days per week no Vito [place] alcohol use, average drinks per day none Vito [place] caffeine use, averag e drinks per day no Vito [place] smoking status Never smoker Vito cyr social history reviewed E&M i ewed - no changes required Yung Childers MD physical exercise, f requency, days per week no Nadia Corley alcohol use, average drinks per day none Nadia Corley caffeine use, averag e drinks per day no Nadia Corley smoking status Non-smoker Nadia sanchez social history reviewed E&M revi ewed - no changes required Yung Childers MD physical exercise, f requency, days per week no Nadia Jory alcohol use, average drinks per day none Nadia Jory caffeine use, averag e drinks per day no Nadia Jory smoking status Non-smoker Nadia sanchez number of grandchildren Yung Childers MD U silvino Childers MD social history reviewed E&M luis ewed - no changes required Yung Childers MD physical exercise, f requency, days per week no Nadia Jory alcohol use, average drinks per day none Nadia Jory caffeine use, averag e drinks per day no Nadia Jory smoking status Non-smoker Nadia sanchez social history E&M Marital Statu s: L kayla with family/friends E thnicity: Davis Trujillo RN social history reviewed E&M reviewed Davis Trujillo RN physical exercise, f requency, days per week no [employer] caffeine use, averag e drinks per day no [employer] alcohol use, average drinks per day none [employer] smoking status Non-smoker [employer] MENTAL STATUS Date Observation Value Provider assessment of judgme nt and insight E&M Alert and oriented to time, place and person. Mood and affect are normal. Davis Trujillo RN FAMILY HISTORY Family Member Condition Mother Negative FH of Coron loree Artery Disease Father Family History of Di abetes: INSURANCE PROVIDERS Payer name Policy type / Coverage type [place] red democrat ID A[employer] MEDICARE ADVANTAGE ([facility] COMPLETE PPO) Other [id number] ADVANCE DIRECTIVES Name Date DISCUSSED - NO DECISION MADE TREATMENT PLAN Date Name Performer Cardiology:Recurrent issue. Bud Childers MD Cardiology:No rcurrent CP. Nomal nuclear stress. Yung Childers MD Cardiology:Started o n lisinopril 10mg due to high blood pressure and headaches. Feels lightheaded when taking lisinopril. Will decrease lisinopril to 5mg daily and give 24-Hr ambulatory blood pressure monitor. Yung Childers MD Cardiology Follow up:Normal echo on 06/17/17 Yung Childers MD Cardiology Follow up Yung cyr MD Cardiology Follow up :Patient was admitted in the hospital and missed her previously sheduled stress tests. W ill reschedule stress test Yung Childers MD Cardiology Follow up :PFT in April showed normal lung function. However, her last EKG showed PACs. H er echo today was normal as well, but with continued symptoms, would recommend repeat stress test. D ue to her dyspnea on exertion and back injury, it will need to be an adenosine stress test. I f stress test is normal as well, may refer to Dr. Hu for evaluation of PACs. Yung Childers MD Cardiology Follow up :Last stress test was done in 2008. Her symptoms continue with shortness of breath with exertion. Yung Childers MD Cardiology Follow up :PFT in April showed normal lung function. However, her last EKG showed PACs. H er echo today was normal as well, but with continued symptoms, would recommend repeat stress test. D ue to her dyspnea on exertion and back injury, it will need to be an adenosine stress test. Yung Childers MD Cardiology New Patie nt :Patient states this has been getting progressively worse. Occurs both at rest and with light exertion. Will order PFT and echo. Will also do holter for abnormal EKG. Yung Childers MD [place] due to obesity: H er updated medication list for this problem includes: Aspirin 81 Mg Tabs (Aspirin) ..... One tab. daily Orders: S pirometry (CPT-66496) BP today: 101/60 Prior BP: / () N uclear Stress Findings: Adenosine mediated myocardial perfusion study Normal left ventricular systolic function with a calculated ejection fraction of 63%. No obvious significant scintigraphic evidence of myocardial ischemia or scar. (03/04/2009) E chocardiogram: Normal LV systolic function and size. Borderline LVH. Normal E/E` 6.0. LVEF 60%. Intra-atrial septum is lypomatous. Trace MR. Non-specific thickening MVL & TV. Tri-leaflet AV. Trace TR. IVC is normal in size. Unable to adequately assess the RVSP. GCO (03/04/2009) Jaime Beck MD [place] due to obesity Jaime Beck MD [place] due to obesity: H er updated medication list for this problem includes: Aspirin 81 Mg Tabs (Aspirin) ..... One tab. daily BP today: 101/60 Prior BP: / () N uclear Stress Findings: Adenosine mediated myocardial perfusion study Normal left ventricular systolic function with a calculated ejection fraction of 63%. No obvious significant scintigraphic evidence of myocardial ischemia or scar. (03/04/2009) Orders: C omplete Echo (CPT-40993) Jaime Beck MD [place] due to obesity: H er updated medication list for this problem includes: Aspirin 81 Mg Tabs (Aspirin) ..... One tab. daily BP today: 101/60 Prior BP: / () N uclear Stress Findings: Adenosine mediated myocardial perfusion study Normal left ventricular systolic function with a calculated ejection fraction of 63%. No obvious significant scintigraphic evidence of myocardial ischemia or scar. (03/04/2009) E chocardiogram: Normal LV systolic function and size. Borderline LVH. Normal E/E` 6.0. LVEF 60%. Intra-atrial septum is lypomatous. Trace MR. Non-specific thickening MVL & TV. Tri-leaflet AV. Trace TR. IVC is normal in size. Unable to adequately assess the RVSP. GCO (03/04/2009) Jaime Beck MD [place] due to obesity: H er updated medication list for this problem includes: Aspirin 81 Mg Tabs (Aspirin) ..... One tab. daily BP today: 101/60 Prior BP: / () N uclear Stress Findings: Adenosine mediated myocardial perfusion study Normal left ventricular systolic function with a calculated ejection fraction of 63%. No obvious significant scintigraphic evidence of myocardial ischemia or scar. GC (03/04/2009) E chocardiogram: Normal LV systolic function and size. Borderline LVH. Normal E/E` 6.0. LVEF 60%. Intra-atrial septum is lypomatous. Trace MR. Non-specific thickening MVL & TV. Tri-leaflet AV. Trace TR. IVC is normal in size. Unable to adequately assess the RVSP. GCO (03/04/2009) Jaime Beck MD Date Name STR - Adenosine MAGNESIUM BASIC METABOLIC PANE L W/EGFR STR - Adenosine ZIO Holter DLCO - 23090 FRC - 63625 FVC - 50921 Complete Echo Complete Echo Spirometry HISTORY OF PROCEDURES Procedure Date Procedure Name Provider Procedure Notes S tatus Ambulatory BP Yung Childers MD comple dwight Stress EKG Al Maguire MD completed Regadenoson, 4 units Yung Childers MD completed Cardiolite, 2 units Yung Childers MD completed SPECT Images Shy Villasenor MD complet ed SNOMED-CT: 57356180 Physical Exam, Performed: Pulse Exam of Foot Yung Childers MD completed SNOMED-CT: 657410115 175616 Current Medications Documented Yung Childers MD completed SNOMED-CT: 70859952 Physical Exam, Performed: Pulse Exam of Foot Yung Childers MD completed SNOMED-CT: [id number] 013096 Current Medications Documented Yung Childers MD completed FVC / MVV with bronchodilator - 37993 Yung Childers MD completed FRC - 71031 Yung Childers MD complete d SpO2 - 51702 Yung Childers MD complet ed DLCO - 70797 Yung Childers MD complet ed IVAN Childers MD co mpleted SNOMED-CT: 18610784 Physical Exam, Performed: Pulse Exam of Foot Yung Childers MD completed EKG Yung Childers MD completed SNOMED-CT: 992976251 461144 Current Medications Documented Yung Childers MD completed
--- OUTSIDE RECORDS SUMMARY | 2024-11-15 10:52 | XMS_ITS | Clinical Summary ---
Author Organization [facility] Address [address] [place] [address] Care Team Providers Care Speech Language Pathologist Assistant Name Role Phone Unavailable Primary Care Provider Unavailabl e Social History Tobacco Use Types Packs/Day Years Used Date Smoking Tobacco: Never Assessed Comments Unknown Sex and Gender Information Value Date Recorded Sex Assigned at Not on file Legal Sex Female 5:02 PM CDT Gender Identity Not on file Sexual Orientation Not on file Plan of Treatment Health Maintenance Due Date Last Done Comments Cervical Cancer Screening Pa p Smear (Age 30 to 64) Every 3 Years 1970 Colorectal Cancer Screening Colonoscopy (10 Years) 1970 Annual Physical 1973 Hepatitis C 1988 DTaP, Tdap and Td Vaccines ( 1 - Tdap) 1989 Hepatitis B Vaccines (1 of 3 - 19+ 3-dose series) 1989 Cervical Cancer Screening Pa p with HPV Testing (Age 30 to 64) Every 5 Years 2000 Cervical Cancer Screening with HPV 2000 Mammogram Screening 2010 Zoster Vaccines (1 of 2) 2020 COVID-19 Vaccine (2023-2 5 season) 2024 Influenza Adult (#1) 2024 Meningococcal B Vaccine Aged Out No l onger eligible based on patient's age to complete this topic Meningococcal Vaccine Aged Out No parisa tereza eligible based on patient's age to complete this topic Pneumococcal Vaccine: Pediat rics (0 to 5 Years) and At-Risk Patients (6 to 64 Years) Aged Out No longer eligible b ased on patient's age to complete this topic RSV Immunizations Under 20 Months Aged Out No longer eligible based on patient's age to complete this topic
--- OUTSIDE RECORDS SUMMARY | 2024-11-15 10:52 | XMS_ITS ---
Author Organization [facility] Address [address] [place] [address] Care Team Providers Care Airport Operations Officer Name Role Phone Treva Madhu Primary Care Provider [phone] Allergies Allergen (clinical drug ingredient) Drug/Non Drug Allergy documented on EMR Reaction Allergy Type Onset Date Status esomeprazole Nexium Unknown Drug Allergy Acti ve ketorolac toradol (uncoded) Unknown Allergy Ac tive Contrast Dye (uncoded) Unknown Allergy Active REASON FOR VISIT 4 week F/U Medications Medication SIG (Take, Route, Frequency, Duration) Notes Start Date End Date Status tiZANidine HCl 4 MG 1 tablet Orally four times a day for 30 days Active levETIRAcetam 1000 MG TAKE 1 TABLET BY MOUTH TWICE DAILY for 90 Active Phentermine HCl 15 MG 1 capsule Orally Once a day for 30 days 08/21/2024 Active Eliquis 5 MG 1 tablet Orally twice a day for 30 days HAS ONE MONTH SUPPLY FROM HOSPITAL. REFILLS ARE TO COMPLETE HER 3-MONTH COURSE. 07/18/2024 Active Topiramate 100 MG 1 tablet Orally Twice a day Active Cetirizine HCl 10 MG 1 tablet Orally Once a day Active Fluticasone Propionate 50 MCG/ACT 2 sprayS in each nostril Nasally Once a day Active Paxlovid (300/100) 20 x 150 MG & 10 x 100MG 3 tablets Orally Twice a day for 5 day(s) 08/10/2024 Not-Taking Social History Tobacco Use: Social History Observation Description Date Details (start date - stop date) Never Smoker NA - NA Sex Assigned At : Social History Observation Description Sex Assigned At Female Tobacco Control (Standard) Question Answer Notes Tobacco use: Nonsmoker Encounters Encounter Location Date Provider Diagnosis [address] [place] [address] 08/21/2024 Madhu Tilley Body mass index (BMI) of 30.0-30.9 in adult Z68.30 and DVT of right axillary vein, acute I82.A11 Assessments Encounter Date Diagnosis (ICD Code) Assessment Notes Treatment Notes Treatment Clinical Notes Section Notes 08/21/2024 Body mass index (BMI) of 30.0-30.9 in adult (ICD-10 - Z68.30) 08/21/2024 DVT of right axillary vein, acute (ICD-10 - I82.A11) Plan Of Treatment Medication Medication Name Sig Start Date Stop Date Notes Phentermine HCl 15 MG 1 capsule Orally O nce a day for 30 days 08/21/2024 Eliquis 5 MG 1 tablet Orally twic e a day for 30 days 07/18/2024 HAS ONE MONTH SUPPLY FROM HOSPITAL. REFILLS ARE TO COMPLETE HER 3-MONTH COURSE. Next Appt Details Follow Up: 2 Months, Reason: DVT, WEIGHT Progress Notes * Oscar FARLEYOB: [birth year] (54 yo F)Acc No.[id number]:08/21/2024 Patient: Nadia Misti HATCH Provider: Cynthia Tilley :1970 A ge:54 Y S ex:Female Date:08/21/2024 [facility] Subjective: * Chief Complaints: * 4 week F/U * HPI: C SSRS Interpretation and Follow Up Plan: CSSRS Interpretation and Follow Up Plan. CSSRS Interpretation and Follow Up Plan C SSRS Screen documented using SF Y es M oderate or High risk requires selection of a follow up plan C SSRS No/Low: intervention not needed at this time R isk Disposition from L ow - No Follow Up Plan Required P reventative Health and Wellness follow-up: . D epression Screening: PHQ-9 L ittle interest or pleasure in doing things?Not at all F eeling down, depressed, or hopeless N ot at all T rouble falling or staying asleep, or sleeping too much S everal days F eeling tired or having little energy N ot at all P oor appetite or overeating N ot at all F eeling bad about yourself or that you are a failure, or have let yourself or your family down N ot at all T rouble concentrating on things, such as reading the newspaper or watching television N ot at all M oving or speaking so slowly that other people could have noticed; or the opposite, being so fidgety or restless that you have been moving around a lot more than usual N ot at all T houghts that you would be better off or of hurting yourself in some way N ot at all T otal Score 1 I nterpretation M inimal Depression S creening: [place] Suicide Severity Rating Scale (LF) D o you want to initiate with S creener form 1 . Wish to be : Have you wished you were or wished you could go to sleep and not wake up? N o 2 . Suicidal Thoughts: Have you actually had any thoughts of killing yourself? N o 6 . Suicide Behaviour: Have you ever done anything,started to do anything, or prepared to end your life? N o I nterpretation: L ow Risk I nterim History: TELEHEALTH. FEELING GOOD OVERALL. HAD MILD CASE OF COVID 19 LAST WEEK. STILL CAN'T SMELL AND TASTE IS OFF. SILL LOSING WEIGHT ON PHENTERMINE. * ROS: B asic ROS: Weight loss A dmits. * Medical History: * Surgical History: c -section 1987 1988 1989 1990 gall bladder removed 1997umbilical hernia repairX4 hysterectomy 1992gastric bypass surgery 2011Bowel resection 2017exploratory lap 2019removal of benign small bowel tumor pinal stenosis surgery 10/2021Gastric bypass reverse 02/15/2023 * Hospitalization/Major Diagno stic Procedure: h ernia repair 05/2018Stomach issues tomach issue 06/2022kidney infection 10/2023 * Family History: F ather: , enphazima, DM. M other: alive, High Blood pressure, Heart issues. M aternal Grand Father: form [place]. M aternal Grand Mother: emmanuel. 2 brother(s) , 1 sister(s) - healthy. 1 son(s) , 4 daughter(s) - healthy. . * Social History: P rimary Social History: L iving Arrangement L iving Arrangement: I ndependent Living I s this a supportive environment? Y es Alcohol Use A lcohol Use Frequency: N ever Illicit Substance Usage I llicit Substance Usage: N o Employment Status E mployment Status: O n Disability T obacco Use: T obacco Control (Standard) T obacco use: N onsmoker * Medications: T akingCetirizine HCl 10 MG Tablet 1 tablet Orally Once a day Fluticasone Propionate 50 MCG/ACT Suspension 2 sprayS in each nostril Nasally Once a day Topiramate 100 MG Tablet 1 tablet Orally Twice a day tiZANidine HCl 4 MG Tablet 1 tablet Orally four times a day levETIRAcetam 1000 MG Tablet TAKE 1 TABLET BY MOUTH TWICE DAILY Phentermine HCl 15 MG Capsule 1 capsule Orally Once a day Eliquis 5 MG Tablet 1 tablet Orally twice a day , stop date 10/16/2024, Notes to Pharmacist: HAS ONE MONTH SUPPLY FROM HOSPITAL. REFILLS ARE TO COMPLETE HER 3-MONTH COURSE.Taking Cetirizine HCl 10 MG Tablet 1 tablet Orally Once a day Taking Fluticasone Propionate 50 MCG/ACT Suspension 2 sprayS in each nostril Nasally Once a day Taking Topiramate 100 MG Tablet 1 tablet Orally Twice a day Taking tiZANidine HCl 4 MG Tablet 1 tablet Orally four times a day Taking levETIRAcetam 1000 MG Tablet TAKE 1 TABLET BY MOUTH TWICE DAILY Taking Phentermine HCl 15 MG Capsule 1 capsule Orally Once a day Taking Eliquis 5 MG Tablet 1 tablet Orally twice a day , stop date 10/16/2024, Notes to Pharmacist: HAS ONE MONTH SUPPLY FROM HOSPITAL. REFILLS ARE TO COMPLETE HER 3-MONTH COURSE.Not-TakingPaxlovid (300/100) 20 x 150 MG & 10 x 100MG Tablet Therapy Pack 3 tablets Orally Twice a day Not-Taking Paxlovid (300/100) 20 x 150 MG & 10 x 100MG Tablet Therapy Pack 3 tablets Orally Twice a day * Allergies: N exiumtoradolContrast Dyeno[Allergies Verified] Objective: * Vitals: I nitials: BA, LMP: hysto, Pain scale:3. * Examination: G eneral Examination: GENERAL APPEARANCE: A LERT. NAD. SPEECH CLEAR.. ? Assessment: * Assessment: 1. B kenyon mass index (BMI) of 30.0-30.9 in adult - Z68.30 2 . D VT of right axillary vein, acute - I82.A11 (Primary) Plan: * Treatment: 2. B kenyon mass index (BMI) of 30.0-30.9 in adult Refill Phentermine HCl Capsule, 15 MG, 1 capsule, Orally, Once a day, 30 days, 30 Capsule, Refills 0. * Procedure Codes: G 2024 [facility] EST PATIENT VISIT * Follow Up: 2 Months (Reason: DVT, WEIGHT) * * RUCTOR ADJUNCT PHARMACY TECHNICIAN Sign off status: Completed true * Provider: Cynthia Tilley Date: 0 08/21/2024 Generated for Theo pettit/Ambreen/Jonnieransmitting on: 0 11/15/2024 10:52 AM CDT History and Physical Notes * HPI (History of Present Illness) Category Sub-Category Detail Notes Category Not es Depression Screening PHQ-9 Little inte rest or pleasure in doing things: Not at all Feeling down, depressed, or hopeless: No t at all Trouble falling or staying asleep, or sl eeping too much: Several days Feeling tired or having little energy: N ot at all Poor appetite or overeating: Not at all Feeling bad about yourself o r that you are a failure, or have let yourself or your family down: Not at all Trouble concentrating on thi ngs, such as reading the newspaper or watching television: Not at all Moving or speaking so slowly that other people could have noticed; or the opposite, being so fidgety or restless that you have been moving around a lot more than usual: Not at all Thoughts that you would be b ferny off or of hurting yourself in some way: Not at all Total Score: 1 Interpretation: Minimal Depression Screening [place] Suicide Sev erity Rating Scale (LF) Do you want to initiate with: Screener form 1. Wish to be : Have you wished you were or wished you could go to sleep and not wake up?: No 2. Suicidal Thoughts: Have you actually had any thoughts of killing yourself?: No 6. Suicide Behavior Question: Have you ever done anything,started to do anything, or prepared to end your life?: No Interpretation:: Low Risk Do Not Use CSSRS Interpretation and Follow Up Plan CSSRS Interpretation and Follow Up Plan CSSRS Screen documented using SF: Yes Moderate or High risk requir es selection of a follow up plan: CSSRS No/Low: intervention not needed at this time Risk Disposition from SF: Low - No Follo w Up Plan Required Preventative Health and Wellness follow-up . Examination Category Sub-Category Detail Notes Category Not es General Examination GENERAL APPEARANCE: ALERT. NAD. SP EECH CLEAR.
[2024-11-15 11:09] VITALS: BP 102/85; PULSE 82; RESP 19; O2SAT 100
--- OUTSIDE RECORDS SUMMARY | 2024-11-15 11:19 | XMS_ITS | Clinical Summary ---
Author Organization [facility] Address [address] [place] [address] Phone Care Team Providers Care Qualitative Researcher Name Role Phone Madhu Tilley MD Primary Care Provider [phone] Allergies Active Allergy Reactions Criticality Noted Date [...] Comments Blood Pressure 113/80 09/16/2019 4:[address] [facility] LAW CLERK Pulse 79 09/16/2019 4:[address] [facility] LAW CLERK Temperature 36.4 C (97.6 F) 09/16/2019 1:[address] [facility] LAW CLERK Respiratory Rate 18 09/16/2019 4:[address] [facility] LAW CLERK Oxygen Saturation 95% 09/16/2019 4:[address] [facility] LAW CLERK Inhaled Oxygen Concentration - - Weight 79.4 kg (175 lb) 09/16/2019 1:[address] [facility] LAW CLERK Height 162.6 cm (5' 4 ) 09/16/2019 1:[address] [facility] LAW CLERK Body Mass Index 30.04 09/16/2019 1:[address] [facility] LAW CLERK Plan of Treatment Health Maintenance Due Date [...] Advance Directives For more information, please contact: [phone] * Full Code (Latest Code Status on File) Date Activated Date Inactivated Comments 07/16/2018 9:55 PM 07/19/2018 2:03 PM Care Teams Qualitative Researcher Relationship Specialty Start Date End Date Madhu Tilley MD [address] [facility] [address] [facility] [address] [place] [address] PCP - General Internal Medicine 08/27/19
--- OUTSIDE RECORDS SUMMARY | 2024-11-15 11:19 | XMS_ITS | Referral Summary ---
Author Organization [facility] Address [address] [place] [address] Care Team Providers Care Car Ferry Captain Name Role Phone Kit Jonas MD Unavailable [phone] Madhu Tilley MD Primary Care Provider [phone] Allergies Active Allergy Reactions Criticality Noted Date [...] often do you attend chur ch or restorationism services? Never 02/04/2023 Do you belong to any clubs o r organizations such as holiness groups, unions, fraternal or athletic groups, or [...] place to sleep or slept in a alf (including now)? 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 Gender Identity Not on file Sexual Orientation Not on file Last Filed Vital Signs Vital Sign Reading Time Taken Comments Blood Pressure 149/87 09/18/2023 7:03 PM [employer] HOUSE SUPERVISOR Pulse 80 09/18/2023 7:03 PM COOK HOUSE SUPERVISOR Temperature 37 C (98.6 F) 09/18/2023 7:03 PM COOK HOUSE SUPERVISOR Respiratory Rate 16 09/18/2023 7:03 PM COOK HOUSE SUPERVISOR Oxygen Saturation 100% 09/18/2023 7:03 PM COOK HOUSE SUPERVISOR Inhaled Oxygen Concentration - - Weight 88.5 kg (195 lb) 09/18/2023 2:48 PM COOK HOUSE SUPERVISOR Height 162.6 cm (5' 4 ) 06/06/2023 [...] CDT Narrative 05/10/2017 5:10 PM CDT Acc#: [id number] JOSE RAUL 0015 - Diag Mamm BI [...] M.D. TECHNOLOGIST: SHANE DUMONT TECHNOLOGIST MEDICAL IMAGING BIG DATA ANALYTICS LEAD: [facility] TRANSCRIBE DATE/TIME: May 11 2017 4:05P RADIOLOGIST: MARJORIE FRIAS M.D. READ ON: May 10 2017 3:22P ORDERING DR: NADIA BROWN M.D. THIS DOCUMENT HAS BEEN ELECTRONICALLY SIGNED BY: MARJORIE FRIAS M.D. ON: May 11 2017 4:05P Attending: DENG JACOBSON Requesting: NADIA BROWN Requesting Attending Attending ID: [id number] Requesting ID: [id number] Report To 1 ID: [id number] Report To 1 Name: DENG JACOBSON Report To 1 FAX: [phone] Report To 2 ID: Report To 2 Name: , Report To 2 FAX: -- NextGen Order #: Procedure Note Miscellaneous, Not In File / Provider, MD Keren - 05/11/2017 Acc#: [id number] JOSE RAUL 0015 - Diag Mamm BI [...] signed by: Marjorie Frias M.D. TECHNOLOGIST: SHANE DMUONT TECHNOLOGIST MEDICAL IMAGING BIG DATA ANALYTICS LEAD: [facility] TRANSCRIBE DATE/TIME: May 11 2017 4:05P RADIOLOGIST: MARJORIE FRIAS M.D. READ ON: May 10 2017 3:22P ORDERING DR: NADIA BROWN M.D. THIS DOCUMENT HAS BEEN ELECTRONICALLY SIGNED BY: MARJORIE FRIAS M.D. ON: May 11 2017 4:05P Attending: DENG JACOBSON Requesting: NADIA BROWN Requesting Attending Attending ID: [id number] Requesting ID: [id number] Report To 1 ID: [id number] Report To 1 Name: DENG JACOBSON Report To 1 FAX: [phone] Report To 2 ID: Report To 2 Name: , Report To 2 FAX: -- NextGen Order #: Nadia Brown MD IMG MAMMO PROCEDURES E dited Result - Final from Last 3 Months or Most Recently Relevant to Health Maintenance Additional Health Concerns Infection Onset Date Last Indicated MDR gram neg/ESBL Comment:ESBL E.coli urine 11/07/17, 11/15/17, 04/16/18, 02/21/19 11/07/2017 02/21/2019 Insurance [employer] MEDICARE [facility] CLAIMS OFFICE [facility] MEDIC[address] [address] [place] [address] [facility] MEDICARE ADVANTAGE IDPA [facility] MEDICARE [facility] Address: [address] [address] [place] [address] Advance Directives For more information, please contact: [phone] * Full Code (Latest Code Status on File) Date Activated Date Inactivated Comments 02/03/2023 7:52 PM 02/05/2023 5:54 PM * Full Code Date Activated Date Inactivated Comments 04/19/2018 11:35 AM 04/20/2018 8:58 PM * Full Code Date Activated Date Inactivated Comments 02/03/2018 12:56 AM 02/04/2018 7:24 PM Care Teams Car Ferry Captain Relationship Specialty Start Date End Date Madhu Tilley MD PCP - General 07/04/20 Kit Jonas MD Surgeon General Surgery 02/04/18
--- OUTSIDE RECORDS SUMMARY | 2024-11-15 11:19 | XMS_ITS | Patient Health Record ---
Author Organization [facility] Planning Address [address] [address] Care Team Providers Care Subject Scientific Research Name Role Phone Anum Lisa Primary Care Provider [phone] Angelina Willis Unavailable Unavailable Reason For Referral No Information Medications Medication SIG (Take, Route, Fr equency, Duration) Notes Start Date End Date Status Xanax 2 MG take 1 tablet by ora l route 3 times every day if needed. Oral ([facility]) 07/06/2014 Active SEROquel 100 MG TAKE 1 TABLET BY ORA L ROUTE EVERY NIGHT Oral ([facility]) 06/29/2014 Active Keppra 500 MG take 1 tablet by ora l route 2 times every day Oral ([facility]) Active Problems Problem Type SNOMED Code ICD Code Onset Dates Problem Status W/U Status Risk Notes Problem Mild recurrent major depression (20446492) Major depressive disorder, recurrent episode, mild (296.31) 1 Active confirmed ([facility]) Added By: Angelina Garrett Problem Anxiety state (421982581) Anxiety state, unspecified (300.00) 1 Active confirmed ([facility]) Added By: Angelina Garrett Plan Of Treatment No Information Medical (General) History Surgical History Surgery Date(Month/Year) gastric bypass 2010 hernia repair 2011 lithotripsy October 2012 Hysterectomy
--- OUTSIDE RECORDS SUMMARY | 2024-11-15 11:19 | XMS_ITS | Clinical Summary ---
Author Organization [facility] Address [address] [place] [address] Care Team Providers Care Museum Archivist Name Role Phone Unavailable Primary Care Provider [...]
--- OUTSIDE RECORDS SUMMARY | 2024-11-15 11:19 | XMS_ITS | Patient Health Record ---
Author Organization [facility] Address [address] [place] [address] Care Team Providers Care Printed Circuit Board Panels Deburrer Name Role Phone Madhu Tilley Primary Care Provider Allergies Allergen (clinical drug ingredient) Drug/Non Drug Allergy documented on EMR Reaction Allergy Type Onset Date Status esomeprazole Nexium Unknown Drug Allergy Acti ve ketorolac toradol (uncoded) Unknown Allergy Ac tive Contrast Dye (uncoded) Unknown Allergy Active Results Component Value Reference Range Notes Urinalysis In-House, Routine Reviewed date:11/22/2023 11:55:47 AM Interpretation: Performing Lab: Notes/Report: Leukocytes neg Nitrite, Urine neg Urobilinogen,Semi-Qn 0.2 Protein neg pH 5.5 Occult Blood moderate Specific [place] 1.020 Ketones neg Bilirubin neg Glucose neg Hemoglobin A1c* Reviewed date:06/07/2024 12:00:35 PM Interpretation: Performing Lab: Notes/Report: Lipid Panel* Reviewed date:06/07/2024 12:00:17 PM Interpretation: Performing Lab: Notes/Report: PTH, Intact Reviewed date:06/07/2024 11:52:51 AM Interpretation: Performing Lab: Notes/Report: Phosphorus, Serum* Reviewed date:06/07/2024 11:52:29 AM Interpretation: Performing Lab: Notes/Report: Vitamin B12 and Folate Reviewed date:06/07/2024 11:52:12 AM Interpretation: Performing Lab: Notes/Report: Iron and TIBC* Reviewed date:06/07/2024 11:51:43 AM Interpretation: Performing Lab: Notes/Report: CBC With Differential/Platel et* Reviewed date:06/07/2024 11:50:48 AM Interpretation: Performing Lab: Notes/Report: TSH Rfx on Abnormal to Free T4 Reviewed date:06/07/2024 11:50:58 AM Interpretation: Performing Lab: Notes/Report: Magnesium, Serum* Reviewed date:06/07/2024 11:49:45 AM Interpretation: Performing Lab: Notes/Report: Vitamin D, 25-Hydroxy* Reviewed date:06/07/2024 11:49:21 AM Interpretation: Performing Lab: Notes/Report: Valproic Acid (Depakote)(R), S Reviewed date:06/07/2024 11:47:23 AM Interpretation: Performing Lab: Notes/Report: CMP 14 Comprehensive Metabol ic Panel* Reviewed date:06/07/2024 11:46:49 AM Interpretation: Performing Lab: Notes/Report: Xray : Kidneys, Ureters and Bladder (KUB) Reviewed date:03/24/2024 01:46:59 PM Interpretation: Performing Lab: Notes/Report: Urine Culture, Routine* Reviewed date:11/30/2023 10:53:37 AM Interpretation: Performing Lab:[facility] [place], [address] [facility], [place], Phone - [phone], Director - Atif Notes/Report: Urine Culture, Routine Final report Result 1 Mixed urogenital lia 25,000-50,000 colony forming units per mL Reason For Referral No Information Medications Medication SIG (Take, Route, Frequency, Duration) Notes Start Date End Date Status Cetirizine HCl 10 MG 1 tablet Orally Onc e a day Unknown Fluticasone Propionate 50 MCG/ACT 2 sprayS in each nostril Nasally Once a day Active levETIRAcetam 1000 MG TAKE 1 TABLET BY M OUTH TWICE DAILY for 90 Active Phentermine HCl 15 MG 1 capsule Orally O nce a day for 30 days 11/13/2024 Active tiZANidine HCl 4 MG 1 tablet Orally four times a day for 30 days Active Eliquis 5 MG 1 tablet Orally twic e a day for 30 days Active Topiramate 100 MG 1 tablet Orally Twic e a day Unknown Amoxicillin-Pot Clavulanate 875-125 MG 1 tablet Orally every 12 hrs for 7 days 03/05/2022 Active Promethazine-DM 6.25-15 MG/5ML 5 mL as needed Orally every 6 hrs for 10 days As needed cough 09/05/2024 Unknown Social History Tobacco Use: Social History Observation Description Date Details (start date - stop date) Never Smoker NA - NA Sex Assigned At : Social History Observation Description Sex Assigned At Female Tobacco Control (Standard) Question Answer Notes Tobacco use: Nonsmoker Problems Problem Type SNOMED Code ICD Code Onset Dates Problem Status W/U Status Risk Notes Problem 213311140 Hypomagnesemia (E83.42) Active confirmed Problem 78385287 Other chronic pa in (G89.29) Active confirmed Problem 528968803 Lumbago with sciatica, unspecified side (M54.40) Active confirmed Problem 728286346 Overactive bladd er (N32.81) Active confirmed Problem 07627624 Mood disorder (F39) Active confirmed Problem Posttraumatic stress disorder (49936757) PTSD (post-traumatic stress disorder) (F43.10) Active confirmed Problem 23034949 Vitamin D defici ency (E55.9) Active confirmed Problem Seizure disorder (142291467) Seizure disorder (G40.909) Active confirmed Problem Iron deficiency anemia (66729186) Iron deficiency anemia (D50.9) Active confirmed Problem 34180309 Chronic fatigue (R53.82) Active confirmed Problem Plantar fasciitis (861406154) Plantar fasciitis (M72.2) Active confirmed Problem Moderate recurrent major depression (43676935) Moderate episode of recurrent major depressive disorder (F33.1) 2017 Active confirmed Problem Backache (576194369) Dorsalgia (M54.9) Active confirmed Problem 960893337 Obesity (BMI 30-39.9) (E66.9) Active confirmed Problem 915265859 Panic attacks (F41.0) Active confirmed Problem 20147671 Essential hypertension (I10) 2018 Active confirmed Problem 43279654 Migraine without status migrainosus, not intractable, unspecified migraine type (G43.909) Active confirmed SEEing NEUROLOGIST Problem 12504381 Hyperparathyroid ism (E21.3) Active confirmed Problem 181032285 Excoriation (skin-picking) disorder (F42.4) Active confirmed Problem Malabsorption syndrome (66343674) Malabsorption due to intolerance, not elsewhere classified (K90.49) Active confirmed Problem 67849822 Kidney stones (N20.0) Active confirmed Problem Body mass index 30+ - obesity (574946503) Body mass index (BMI) of 30.0-30.9 in adult (Z68.30) Active confirmed Problem Obesity (082887319) Obesity, unspecified classification, unspecified obesity type, unspecified whether serious comorbidity present (E66.9) Active confirmed Problem History of bariatric surgical procedure (746019827) Gastric bypass status for obesity (Z98.84) 2022 Active confirmed Problem 728055486 Gastroesophageal reflux disease, unspecified whether esophagitis present (K21.9) Active confirmed Problem 22785653 Multinodular goi ter (nontoxic) (E04.2) Active confirmed Problem Metabolic syndrome (053343571) Metabolic syndrome (E88.810) Active confirmed Vital Signs Heart Rate 91 /min 07/25/2024 Temperature 97.6 degrees Fahrenheit 11/29/2023 Respiratory Rate 16 /min 07/25/2024 Oximetry 91 % 07/25/2024 Blood pressure diastolic 80 mm Hg 07/25/2024 Height 64 in 07/25/2024 Blood pressure systolic 128 mm Hg 07/25/2024 Weight 203.2 lbs 07/25/2024 BMI 34.88 kg/m2 07/25/2024 Encounters Encounter Location Date Provider Diagnosis [address] [place] [address] 11/24/2023 Madhu Tilley [place] [address] [facility] [address] 04/04/2024 Madhu Tillye Breast cancer screen ing by mammogram Z12.[address] [place] [address] 08/10/2024 Madhu Tilley [address] [place] [address] 09/05/2024 Madhu Tilley [address] [place] [address] 09/26/2024 Madhu Tilley UTI (urinary tract infection) N39.[address] [address] 11/29/2023 Madhu Tilley Complicated UTI (uri nary tract infection) N39.0 and Nutritional counseling Z71.[address] [address] 05/30/2024 Madhu Tilley Plantar fasciitis M7 2.2 ; Body mass index (BMI) of 30.0-30.9 in adult Z68.30 ; Multinodular goiter (nontoxic) E04.2 ; Essential hypertension I10 ; Moderate episode of recurrent major depressive disorder F33.1 ; Seizure disorder G40.909 ; Nutritional counseling Z71.3 ; Vitamin D deficiency E55.9 ; Hypomagnesemia E83.42 ; Chronic fatigue R53.82 ; Iron deficiency anemia D50.9 ; Hyperparathyroidism E21.3 ; Metabolic syndrome E88.810 and Dietary counseling Z71.[address] [address] 06/28/2024 Madhu Tilley Nutritional counseli ng Z71.3 ; Plantar fasciitis M72.2 ; Dorsalgia of multiple sites in spine M54.9 ; Migraine without status migrainosus, not intractable, unspecified migraine type G43.909 ; Cervical myofascial pain syndrome M79.18 ; Right hip pain M25.551 ; Dorsalgia M54.9 ; Body mass index (BMI) of 30.0-30.9 in adult Z68.30 and Seizure disorder G40.[address] [address] 07/25/2024 Madhu Tilley Nutritional counseli ng Z71.3 and DVT of right axillary vein, acute I82.A11 [address] [address] 11/22/2023 Madhu Tilley UTI (urinary tract infection) N39.0 and Kidney stones N20.[address] [address] 08/21/2024 Madhu Tilley Body mass index (BMI ) of 30.0-30.9 in adult Z68.30 and DVT of right axillary vein, acute I82.A11 Assessments Encounter Date Diagnosis (ICD Code) Assessment Notes Treatment Notes Treatment Clinical Notes Section Notes 09/26/2024 UTI (urinary tract infection) (ICD-10 - N39.0) 07/25/2024 Nutritional counseli ng (ICD-10 - Z71.3) 07/25/2024 DVT of right axillar y vein, acute (ICD-10 - I82.A11) 05/30/2024 Plantar fasciitis (ICD-10 - M72.2) DISCUSSED AND DEMONSTRATED HEEL STRETCHES, HEEL CUPS, NO BAREFOOT WALKING, GOOD FOOTWEAR 05/30/2024 Body mass index (BMI ) of 30.0-30.9 in adult (ICD-10 - Z68.30) DISCUSSED MEDITERRANEAN DIET AND SENT INFO 11/29/2023 Complicated UTI (urinary tract infection) (ICD-10 - N39.0) TRIAL OF SUPPRESSIVE 11/22/2023 UTI (urinary tract infection) (ICD-10 - N39.0) RECORDS REVIEWED. HAD KLEBSIELLA PNEUMONIAE SENSITIVE TO AUGMENTIN, CIPRO, SULFA. 04/04/2024 Breast cancer screening by mammogram (ICD-10 - Z12.31) 06/28/2024 Plantar fasciitis (ICD-10 - M72.2) 08/21/2024 Body mass index (BMI ) of 30.0-30.9 in adult (ICD-10 - Z68.30) 08/21/2024 DVT of right axillar y vein, acute (ICD-10 - I82.A11) 06/28/2024 Nutritional counseli ng (ICD-10 - Z71.3) 06/28/2024 Dorsalgia of multipl e sites in spine (ICD-10 - M54.9) 11/29/2023 Nutritional counseli ng (ICD-10 - Z71.3) 11/22/2023 Kidney stones (ICD-1 0 - N20.0) 05/30/2024 Multinodular goiter (nontoxic) (ICD-10 - E04.2) 05/30/2024 Essential hypertensi on (ICD-10 - I10) 06/28/2024 Migraine without status migrainosus, not intractable, unspecified migraine type (ICD-10 - G43.909) 06/28/2024 Cervical myofascial pain syndrome (ICD-10 - M79.18) 05/30/2024 Moderate episode of recurrent major depressive disorder (ICD-10 - F33.1) 05/30/2024 Seizure disorder (ICD-10 - G40.909) 06/28/2024 Right hip pain (ICD- 10 - M25.551) 06/28/2024 Dorsalgia (ICD-10 - M54.9) 05/30/2024 Nutritional counseli ng (ICD-10 - Z71.3) 05/30/2024 Vitamin D deficiency (ICD-10 - E55.9) 06/28/2024 Body mass index (BMI ) of 30.0-30.9 in adult (ICD-10 - Z68.30) 06/28/2024 Seizure disorder (ICD-10 - G40.909) 05/30/2024 Hypomagnesemia (ICD- 10 - E83.42) 05/30/2024 Chronic fatigue (ICD-10 - R53.82) 05/30/2024 Iron deficiency anem ia (ICD-10 - D50.9) 05/30/2024 Hyperparathyroidism (ICD-10 - E21.3) 05/30/2024 Metabolic syndrome (ICD-10 - E88.810) 05/30/2024 Dietary counseling (ICD-10 - Z71.3) 06/28/2024 Other [place] ISSUES 09/26/2024 Other Learning About the Safe Use of Antibiotics material was discussed. Pt was educated on use of antibiotic medication including dosing, side effects, adverse effects and anticipated response. Pt was also educated on importance of completing full course of treatment as ordered. Patient voiced understanding of all. Plan Of Treatment Pending Test Test Name Order Date Occult Blood, Fecal 12/06/2018 Lipid Panel 05/01/2019 Hemoglobin A1c* 03/01/2019 CMP13 03/01/2019 CMP13 05/01/2019 Lipid Panel* 03/01/2019 Levetiracetam (Keppra), S 03/01/2019 Levetiracetam (Keppra), S 05/01/2019 Future Test Test Name Order Date Mammogram Breast - Bilateral Screening 0 04/04/2024 Insurance Providers Payer Name Payer Address Payer Phone Subscriber Number Group Number Insured Name Patient Relationship to Insured Coverage Start Date Coverage End Date [employer] Medicare [address] [address] [place] [address] [id number] Misti Bai Self - patient is the insured 3 3 [employer] A[employer] Medicare [address] [address] [place] [address] [id number] Misti Bai Self - patient is the insured 4 MEDICAID [address] [place] [address] [id number] Andrews ghotra Misti Self - patient is the insured 3 Medical (General) History Medical History History ICD Code gastric bypass Mood disorder Panic attacks Excoriation (skin-picking) disorder Moderate episode of recurrent major depr essive disorder Migraine without status migr ainosus, not intractable, unspecified migraine type Lumbago with sciatica, unspecified side Other chronic pain kidney stones Surgical History Surgery Date(Month/Year) 1987 1988 1989 1990 gall bladder removed 1996 umbilical hernia repairX4 hysterectomy 1991 gastric bypass surgery 2010 Bowel resection 2017 exploratory lap 2019 removal of benign small bowel tumor 03/04 21 spinal stenosis surgery 10/2021 Gastric bypass reverse 02/15/2023 Hospitalization History Reason Date(Month/Year) kidney infection 10/2023 Stomach issue 06/2022 Stomach issues 03/2022 hernia repair 05/2018
--- OUTSIDE RECORDS SUMMARY | 2024-11-15 11:19 | XMS_ITS | CONTINUITY OF CARE DOCUMENT ---
Author Name bruno carr Address Unknown Organization [facility] Address [address] [place] [address] Phone [phone] Care Team Providers Care Magneto Specialist Name Role Phone Liseth GUERRERO, Yung Unavailable GAVINO QUINTEROS MD Unavailable MADDY BAIRD MD Unavailable PROBLEMS Condition Status Date Provider Notes LVH;NML EF 02/21 active Jaime Beck MD DYSPNEA ON EXERTION;WILL DO SPIROMETRY active Jaime Beck MD OBESITY;CAUSE OF SOB? active Jaime Bcek MD HTN active Yung Childers MD h/o Kidney stones active Yung Childers MD SHORTNESS OF BREATH;NML, CXR , BNP AND DDIMER 09 active Jaime Beck MD CHEST PAIN-02/21 NUC NEG active Jaime alberto MD ENCOUNTERS Date Type Provider Location Encounter Diag nosis - In-person encounter Office Visit Yung Childers MD [place] HTNh/o Kidney stones - In-person encounter Office Visit Yung Childers MD [facility] - In-person encounter Office Visit Yung Childers MD [place] - In-person encounter Office Visit Yung Childers MD [facility] - In-person encounter Office Visit Jaime Beck MD [facility] CHEST PAIN-02/21 NUC NEGSHORTNESS OF BREATH;NML, CXR, BNP AND DDIMER 09LVH;NML EF 02/21DYSPNEA ON EXERTION;WILL DO SPIROMETRYOBESITY;CA USE OF SOB? VITAL SIGNS Date Observation Value Provider Body Mass Index (Ratio) 32.78 kg/m2 Bud Childers MD blood pressure, diastolic 62 mm[Hg] Colton pickering [place] blood pressure, systolic 100 mm[Hg] Savannah gabriel [place] oxygen saturation, oximetry 99 % Vito [place] respiratory rate E&M 16 /min Mcgehee [place] pulse rate 76 /min [place] weight E&M 197 [lb_av] Mcgehee [place] height E&M 65 [in_i] [facility] Body Mass Index (Ratio) 32.45 kg/m2 Bud Childers MD blood pressure, cuff size regular Ke rri Jory blood pressure, diastolic 66 mm[Hg] Ke rri Jory blood pressure, systolic 110 mm[Hg] Cely Corley oxygen saturation, oximetry 97 % Nadia Corley respiratory rate E&M 18 /min Nadia giles pulse rate 42 /min Nadia vazquez weight E&M 195 [lb_av] Nadia Blackman [facility] height E&M 65 [in_i] Nadia Blackman [facility] Body Mass Index (Ratio) 33.28 kg/m2 Bud Childers MD blood pressure, cuff size regular Ke rri Jory blood pressure, diastolic 74 mm[Hg] Ke jacei Jory blood pressure, systolic 116 mm[Hg] Cely Corley oxygen saturation, oximetry 98 % Nadia Diazkhanh respiratory rate E&M 18 /min Nadia Portillo alclivejarod pulse rate 75 /min Nadia Blackman [facility] weight E&M 200 [lb_av] Nadia Diazyocastajenniferjose vazquez height E&M 65 [in_i] Nadia Diazyocastaethandereck [facility] Body Mass Index (Ratio) 32.95 kg/m2 Bud Childers MD blood pressure, cuff size regular Ke kiran Jory height E&M 65 [in_i] Nadia Hiral vazquez blood pressure, diastolic 80 mm[Hg] Ke kiran Jory blood pressure, systolic 122 mm[Hg] Cely aragon Jory oxygen saturation, oximetry 99 % Nadia Jory respiratory rate E&M 18 /min Nadia Portillo tisha pulse rate 87 /min Nadia Diazyocastadelano [facility] weight E&M 198 [lb_av] Nadia Diazoctvaio [facility] blood pressure, diastolic 60 mm[Hg] Kyung sherman [...] 4 times a day as needed Nadia Diazkhanh ATIVAN 0.5 MG ORAL TABLET active take [...] Payer name Policy type / Coverage type [place] red democrat ID AARP MEDICARE ADVANTAGE ([facility] COMPLETE PPO) Other [id number] ADVANCE DIRECTIVES Name Date DISCUSSED - NO [...] ..... One tab. daily Orders: S pirometry (CPT-99957) BP today: 101/60 Prior BP: / () [...] or scar. (03/04/2009) Orders: C omplete Echo (CPT-32287) Jaime Beck MD [place] due to obesity: [...] STR - Adenosine ZIO Holter DLCO - 14367 FRC - 23937 FVC - 66401 Complete Echo Complete Echo Spirometry HISTORY OF PROCEDURES Procedure Date Procedure Name Provider Procedure Notes S tatus Ambulatory BP Yung Childers MD comple dwight Stress EKG Al Maguire MD completed Regadenoson, 4 units Yung Childers MD completed Cardiolite, 2 units Yung Chiledrs MD completed SPECT Images Shy Villasenor MD complet ed SNOMED-CT: 54246098 Physical Exam, Performed: Pulse Exam of Foot Yung Childers MD completed SNOMED-CT: 252124685 424969 Current Medications Documented Yung Childers MD completed SNOMED-CT: 99658867 Physical Exam, Performed: Pulse Exam of Foot Yung Childers MD completed SNOMED-CT: 251875970 810126 Current Medications Documented Yung Childers MD completed FVC / MVV with bronchodilator - 82852 Yung Childers MD completed FRC - 67069 Yung Childers MD complete d SpO2 - 56697 Yung Childers MD complet ed DLCO - 23584 Yung Childers MD complet ed IVAN Childers MD co mpleted SNOMED-CT: 85260945 Physical Exam, Performed: Pulse Exam of Foot Yung Childers MD completed EKG Yung Childers MD completed SNOMED-CT: 368677634 039046 Current Medications Documented Yung Childers MD completed
--- OUTSIDE RECORDS SUMMARY | 2024-11-15 11:19 | XMS_ITS | Clinical Summary ---
Author Organization [facility] Address [address] [place] [address] Care Team Providers Care Recordak Operator Name Role Phone Madhu Tilley MD Primary Care Provider [phone] Source Comments [facility],non-owned Affiliates and Associated Physician Practices is amultiple site organization consisting of ambulatory clinics and hospital sitesin [place], [place], [place] and [place]. This disclosure is being madepursuant to the Care Everywhere program and may not contain all information available regarding this patient. Last updated 18.[facility] Allergies Active Allergy Reactions Criticality Noted Date [...] Active vitamin D, ergocalciferol, (Drisdol) 1.25 MG (13426 UT) capsule Take 1 (one) capsule by [...] fluticasone propionate (Flonase) 50 MCG/ACT nasal spray [place] 2 (two) sprays into each nostril once [...] and heating? Not hard at all 03/30/2023 [facility] [place] [facility] ional [facility] - Occupational Stress [...] place to sleep or slept in a half-way (including now)? No 03/30/2023 Sex and Gender [...] this topic Medical Devices Implanted Type Area Neurobiologist Device Identifier Shelf Expiration Date Model / Serial / Lot Graft Tissue Nushield 3x2cm [facility] - [id number] Implanted:Qty: 1 on 10/22/2021 by Ramone Galloway MD at [facility] N/A: Back [employer] 05/05/2025 NO-1230 / [id number] / Procedures Procedure Name Priority Date/Time Associated Diagnosis Comments BASIC METABOLIC PANEL (CALCIUM TOTAL) Routine 04/03/2023 3:08 AM CDT HEPATITIS SCREEN ACUTE Routine 02/21/2021 3:19 AM CDT HIV-1 HIV-2 ANTIGEN/ANTIBODY STAT 10/13/2018 11:33 AM SALES ORDER ADMINISTRATOR LIPID PROFILE Routine 09/22/2013 2:15 PM SALES ORDER ADMINISTRATOR Major Depressive Disorder, Recurrent Episode, Mild from Last 3 Months or Most Recently Relevant to Health Maintenance Results * (ABNORMAL) BASIC METABOLIC PANEL (CALCIUM TOTAL) (04/03/2023 3:08 AM CDT) Pathologist [facility] Glucose 84 70 - 105 mg/dL [...] - 10.4 mg/dL 04/03/2023 4:27 AM CDT [facility] Anion Gap 8 6 - 16 mmol/L 04/03/2023 4:27 AM CDT [facility] BUN 16 7 - 26 mg/dL 04/03/2023 4:27 AM CDT [facility] Creatinine 0.69 0.57 - 1.11 mg/dL 04/03/2023 4:27 AM CDT [facility] eGFR by CKD-EPI >90 >=90 mL/min/1.7 3 m2 04/03/2023 4:27 AM CDT [facility] Blood BLOOD SPECIMEN / Unknown Venipuncture / Unknown 04/03/2023 3:08 AM CDT 04/03/2023 4:09 AM CDT Jacqueline Jerome CUSTOMER SUCCESS MANAGER-DIRECTOR MICROBIOLOGY LAB - CINDY KENNEDY ORDERABLES Performing Organization Address [facility] Co de Phone Number [facility] [address] [place] [phone] * HEPATITIS SCREEN ACUTE (02/21/2021 3:19 AM CDT) Pathologist [facility] HAV Antibody IgM Non Reactive Non Reactive 02/21/2021 4:52 AM CDT [facility] HBsAg Non Reactive Non Reactive 02/21/2021 4:52 AM CDT [facility] HBc Antibody IgM Non Reactive Non Reactive 02/21/2021 4:52 AM CDT [facility] HCV Antibody Screen Non Reactive Non Reactive 02/21/2021 4:52 AM CDT [facility] Blood BLOOD SPECIMEN / Unknown Venipuncture / Unknown 02/21/2021 3:19 AM CDT 02/21/2021 4:01 AM CDT Narrative [facility] - 02/21/2021 4:52 AM CDT Non Reactive - Antibodies to Hepatitis C virus (HCV) were not detected, result does not exclude early acute HCV infection. Rylie Villalobos MD LAB - CHEMISTRY LUC AREVALO Performing Organization Address [facility] Co de Phone Number [facility] [address] [place] [phone] * HIV-1 HIV-2 ANTIGEN/ANTIBODY (10/13/2018 11:33 AM SALES ORDER ADMINISTRATOR) HIV Antigen/Antibod y 1 & 2 Non-reacti ve Non-react fredrick 10/13/2018 12:39 PM SALES ORDER ADMINISTRATOR [facility] Comment: Neither HIV-1 p24 Antigen nor HIV-1/HIV-2 Antibodies are detected. Blood BLOOD SPECIMEN / Unknown Venipuncture / Unknown 10/13/2018 11:33 AM SALES ORDER ADMINISTRATOR 10/13/2018 11:45 AM SALES ORDER ADMINISTRATOR Scott Chun MD LAB - HEMATOLOGY ORD ERABLES [facility] [address] [phone] * LIPID PROFILE (09/22/2013 2:15 PM SALES ORDER ADMINISTRATOR) Cholesterol 149 <200 mg/dL 09/22/2013 3:18 PM SALES ORDER ADMINISTRATOR [facility] Triglycerides 79 <150 mg/dL 09/22/2013 3:18 PM SALES ORDER ADMINISTRATOR [facility] HDL Cholesterol 66 >40 mg/dL 4 3:18 PM SALES ORDER ADMINISTRATOR [facility] Chol HDL Ratio 2.3 1.0 - 6.0 09/22/2013 3:18 PM SALES ORDER ADMINISTRATOR [facility] LDL Calculated 67 65 - 130 mg/dL 09/22/2013 3:18 PM SALES ORDER ADMINISTRATOR [facility] VLDL Calculated 16 10 - 40 mg/dL 09/22/2013 3:18 PM SALES ORDER ADMINISTRATOR [facility] Blood BLOOD SPECIMEN / Unknown Venipuncture / Unknown 09/22/2013 2:15 PM SALES ORDER ADMINISTRATOR 09/22/2013 2:29 PM SALES ORDER ADMINISTRATOR Narrative [facility] - 09/22/2013 3:18 PM SALES ORDER ADMINISTRATOR Lipid Profile Comment: CHOLESTEROL LEVEL..................CLINICAL INTERPRETATION LESS [...] Julian NOAH LAB - CHEMISTRY LUC AREVALO [facility] Organization Address City/State/[facility] Co de Phone Number [facility] [address] from Last 3 Months or Most [...] 12:36 PM 09/17/2022 2:57 PM Care Teams Recordak Operator Relationship Specialty Start Date End Date Madhu Tilley MD [address] [facility] [place] [address] PCP - General Internal Medicine 03/17/23
--- OUTSIDE RECORDS SUMMARY | 2024-11-15 11:19 | XMS_ITS | Clinical Summary ---
Author Organization [facility] Address [address] [place] [address] Phone Care Team Providers Care Db2 Systems Programmer Name Role Phone Madhu Tilley MD Primary Care Provider [phone] Allergies Active Allergy Reactions Criticality Noted Date [...] Comments Blood Pressure 177/89 08/31/2023 5:00 PM FILM PROCESSING UTILITY WORKER Pulse 79 08/31/2023 5:00 PM FILM PROCESSING UTILITY WORKER Temperature 36.9 C (98.4 F) 08/31/2023 3:04 PM FILM PROCESSING UTILITY WORKER Respiratory Rate 17 08/31/2023 3:30 PM FILM PROCESSING UTILITY WORKER Oxygen Saturation 99% 08/31/2023 5:00 PM FILM PROCESSING UTILITY WORKER Inhaled Oxygen Concentration - - Weight 90.7 kg (200 lb) 08/31/2023 3:15 PM FILM PROCESSING UTILITY WORKER Height 162.6 cm (5' 4 ) 08/31/2023 3:04 PM FILM PROCESSING UTILITY WORKER Body Mass Index 34.33 08/31/2023 3:04 PM FILM PROCESSING UTILITY WORKER Plan of Treatment Health Maintenance Due Date [...] age to complete this topic Insurance MEDICAID [place] MEDICARE C [facility] Care Teams Db2 Systems Programmer Relationship Specialty Start Date End Date Madhu Tilley MD [address] [place], [place] [id number] PCP - General Internal Medicine 08/31/23
--- OUTSIDE RECORDS SUMMARY | 2024-11-15 11:20 | XMS_ITS | Clinical Summary ---
Author Organization [facility] Address [address] [place] [address] Care Team Providers Care Fire Official Name Role Phone Unavailable Primary Care Provider Unavailabl e Allergies Active Allergy Reactions Criticality Noted Date Comments Esomeprazole Hives High 01/30/2013 Iodinated Contrast Media Angioedema,Swelling High 10/15/2016 Ketorolac Hives High 01/30/2013 Rash if taken with PPI Povidone-Iodine Swelling High 10/25/2013 Medications tiZANidine (ZANAFLEX) 0.5 MG tablet 08/16/19 15 Active diphenhydrAMINE -acetaminophen (Tylenol PM Extra Strength) 25-500 mg tablet 07/16/20 21 Active amoxicillin-pot clavulanate (AUGMENTIN) 875-125 mg tablet Take 1 tablet by mouth every 12 (twelve) hours. 03/05/20 22 Active busPIRone (BUSPAR) 15 mg tablet Take 15 mg by mouth. Active cyanocobalamin (VITAMIN B-12) 1,000 mcg/mL injection Inject as directed. Active DULoxetine (CYMBALTA) [address] capsule Take 60 mg by mouth 1 (one) time each day. Active FLUoxetine (PROzac) 20 mg tablet Take 20 mg by mouth 1 (one) time each day. Active FLUoxetine (PROzac) 20 mg capsule Take by mouth 1 (one) time each day. 01/23/20 22 Active HYDROcodone-janina taminophen (NORCO) 5-325 mg tablet Take 1 tablet by mouth every 6 (six) hours if needed. for pain 03/22/20 22 Active HYDROcodone-janina taminophen (NORCO) 5-325 mg tablet Take 2 tablets by mouth every 4 (four) hours if needed. 10/24/19 Active hydrOXYzine pamoate (VISTARIL) 50 mg capsule Take 50 mg by mouth 4 (four) times a day if needed. Active levETIRAcetam (KEPPRA) 1,000 mg tablet Take 1,000 mg by mouth in the morning and 1,000 mg in the evening. 07/16/20 Active levETIRAcetam (KEPPRA) 1,000 mg tablet Take 1 tablet by mouth in the morning and at bedtime. 01/23/20 Active LORazepam (ATIVAN) 0.5 mg tablet Take 0.5 mg by mouth every 12 (twelve) hours if needed. Active multivitamin (THERAGRAN) tablet Take 1 tablet by mouth 1 (one) time each day. 01/23/20 Active naloxone (NARCAN) 4 mg/0.1 mL nasal spray See administration instructions. 10/24/19 Active omeprazole (PriLOSEC) [address] capsule Take by mouth 1 (one) time each day. 01/23/20 Active oxybutynin (DITROPAN) 5 mg tablet TAKE 1 TABLET BY MOUTH EVERY 8 HOURS NEEDED FOR BLADDER SPASMS 01/23/20 Active oxyCODONE-aceta minophen (PERCOCET) 5-325 mg tablet Take 2 tablets by mouth every 6 (six) hours if needed. 11/18/19 Active pantoprazole (PROTONIX) 40 mg EC tablet Take 40 mg by mouth 1 (one) time each day. 12/28/19 Active prazosin (MINIPRESS) 5 mg capsule Take 15 mg by mouth every night. 01/28/20 Active prazosin (MINIPRESS) 5 mg capsule Take 15 mg by mouth. Active QUEtiapine (SEROquel) 100 mg tablet Take 100 mg by mouth in the morning and 100 mg in the evening. Active QUEtiapine (SEROquel) 100 mg tablet Take 100 mg by mouth in the morning and at bedtime. 01/23/20 Active senna (SENOKOT) 8.6 mg tablet Take 8.6 mg by mouth 1 (one) time each day. 10/24/19 Active sertraline (ZOLOFT) 100 mg tablet Take 150 mg by mouth 1 (one) time each day. Active tiZANidine (ZANAFLEX) 4 mg tablet Take 8 mg by mouth every 6 (six) hours if needed. Active topiramate (TOPAMAX) 100 mg tablet Take 200 mg by mouth 1 (one) time each day. Active topiramate (TOPAMAX) 100 mg tablet Take 100 mg by mouth in the morning and at bedtime. 01/23/20 Active traZODone (DESYREL) 150 mg tablet TAKE 2 TABLETS BY MOUTH EVERY DAY AT BEDTIME 01/23/20 Active traZODone (DESYREL) 150 mg tablet Take 150 mg by mouth. Active HYDROcodone-janina taminophen (NORCO) 5-325 mg tablet Take 1 tablet by mouth every 6 (six) hours if needed for severe pain. 20 tablet 03/31/20 Active fluticasone propionate (Flonase Allergy Relief) 50 mcg/actuation nasal spray Administer 1 spray into each nostril 1 (one) time each day. Shake gently. Before first use, prime pump. After use, clean tip and replace cap.Use for 2 weeks as needed for congestion. 16 g 03/31/20 22 Active Active Problems No known active problems Immunizations Immunization Administration Dates Next Due COVID-19, mRNA, LNP-S, PF, 1 00 mcg/0.5mL dose or 50 mcg/0.25mL dose 07/01/2021,05/28/2021 Influenza, split virus, trivalent, PF 07/17/2018 Social History Tobacco Use Types Packs/Day Years Used Date Smoking Tobacco: Never Smokeless Tobacco: Never Tobacco Cessation:Counseling Given: Not Answered Alcohol Use Standard Drinks/Week Comments Never 0 (1 standard drink = 0.6 oz pur e alcohol) Comments Unknown Sex and Gender Information Value Date Recorded Sex Assigned at Not on file Legal Sex Female 9:57 AM PDT Gender Identity Female 03/23/2022 10:11 AM PDT Sexual Orientation Not on file Last Filed Vital Signs Vital Sign Reading Time Taken Comments Blood Pressure 141/80 03/31/2022 11:39 AM CDT Pulse - - Temperature - - Respiratory Rate - - Oxygen Saturation - - Inhaled Oxygen Concentration - - Weight 86.2 kg (190 lb) 03/31/2022 11:39 AM CDT Height 162.6 cm (5' 4 ) 03/31/2022 11:39 AM CDT Body Mass Index 32.61 03/31/2022 11:39 AM CDT Plan of Treatment Health Maintenance Due Date Last Done Comments Dental Oral Exam 1970 Dental Prophylaxis 1970 Dental X-Ray: Bitewings 1970 Dental X-Ray: Full Mouth 1970 Dental X-Ray: Panoramic 03/27/2025 03/26/2022 Meningococcal B Vaccine Aged Out No l onger eligible based on patient's age to complete this topic Procedures Procedure Name Priority Date/Time Associated Diagnosis Comments PANORAMIC RADIOGRAPHIC IMAGE Routine 03/26/2022 1:00 PM CDT from Last 3 Months or Most Recently Relevant to Health Maintenance Insurance [employer] [address] [place] [address]
--- OUTSIDE RECORDS SUMMARY | 2024-11-15 11:20 | XMS_ITS | Clinical Summary ---
Author Organization [facility] Address [address] [place] [address] Care Team Providers Care Welding Engineer Name Role Phone Kit Jonas MD Unavailable [phone] Madhu Tilley MD Primary Care Provider Allergies Active Allergy Reactions Criticality Noted Date [...] often do you attend chur ch or confucianist services? Never 02/04/2023 Do you belong to any clubs o r organizations such as rastafari groups, unions, fraternal or athletic groups, or [...] place to sleep or slept in a fpc (including now)? No 02/04/2023 Housing Stability Vital [...] on file Legal Sex Female 2:16 AM HAND ALTERATIONS SEAMSTRESS Gender Identity Not on file Sexual Orientation Not on file Obstetrics History Last Filed Vital Signs Vital Sign Reading Time Taken Comments Blood Pressure 149/87 09/18/2023 7:03 PM HAND ALTERATIONS SEAMSTRESS Pulse 80 09/18/2023 7:03 PM HAND ALTERATIONS SEAMSTRESS Temperature 37 C (98.6 F) 09/18/2023 7:03 PM HAND ALTERATIONS SEAMSTRESS Respiratory Rate 16 09/18/2023 7:03 PM HAND ALTERATIONS SEAMSTRESS Oxygen Saturation 100% 09/18/2023 7:03 PM HAND ALTERATIONS SEAMSTRESS Inhaled Oxygen Concentration - - Weight 88.5 kg (195 lb) 09/18/2023 2:48 PM HAND ALTERATIONS SEAMSTRESS Height 162.6 cm (5' 4 ) 06/06/2023 [...] CDT Narrative 05/10/2017 5:10 PM CDT Acc#: [id number] JOSE RAUL 0015 - Diag Mamm BI [...] M.D. TECHNOLOGIST: SHANE DUMONT TECHNOLOGIST MEDICAL IMAGING GASOLINE ENGINE ASSEMBLER: NURIA TRANSCRIBE DATE/TIME: May 11 2017 4:05P RADIOLOGIST: MARJORIE FRIAS M.D. READ ON: May 10 2017 3:22P ORDERING DR: NADIA BROWN M.D. THIS DOCUMENT HAS BEEN ELECTRONICALLY SIGNED BY: MARJORIE FRIAS M.D. ON: May 11 2017 4:05P Attending: DENG JACOBSON Requesting: NADIA BROWN Requesting Attending Attending ID: [id number] Requesting ID: [id number] Report To 1 ID: [id number] Report To 1 Name: DENG JACOBSON Report To 1 FAX: [phone] Report To 2 ID: Report To 2 Name: , Report To 2 FAX: -- NextGen Order #: Procedure Note Miscellaneous, Not In File / Provider, MD Keren - 05/11/2017 Acc#: [id number] JOSE RAUL 0015 - Diag Mamm BI [...] Frias M.D. TECHNOLOGIST: RICARDO COLVINOLOGIST MEDICAL IMAGING GASOLINE ENGINE ASSEMBLER: [facility] TRANSCRIBE DATE/TIME: May 11 2017 4:05P RADIOLOGIST: MARJORIE FRIAS M.D. READ ON: May 10 2017 3:22P ORDERING DR: NADIA BROWN M.D. THIS DOCUMENT HAS BEEN ELECTRONICALLY SIGNED BY: MARJORIE FRIAS M.D. ON: May 11 2017 4:05P Attending: DENG JACOBSON Requesting: NADIA BROWN Requesting Attending Attending ID: [id number] Requesting ID: [id number] Report To 1 ID: [id number] Report To 1 Name: DENG JACOBSON Report To 1 FAX: [phone] Report To 2 ID: Report To 2 Name: , Report To 2 FAX: -- NextGen Order #: Nadia Brown MD IMG MAMMO PROCEDURES E dited Result - Final from Last 3 Months or Most Recently Relevant to Health Maintenance Additional Health Concerns Infection Onset Date Last Indicated MDR gram neg/ESBL Comment:ESBL E.coli urine 11/07/17, 11/15/17, 04/16/18, 02/21/19 11/07/2017 02/21/[address] [facility] MED[facility] ADVANTAGE [facility] MEDICARE ADVANTAGE [facility] MEDICARE ADVANTAGE Advance Directives For more information, please contact: [phone] * Full Code (Latest Code Status on File) Date Activated Date Inactivated Comments 02/03/2023 7:52 PM 02/05/2023 5:54 PM * Full Code Date Activated Date Inactivated Comments 04/19/2018 11:35 AM 04/20/2018 8:58 PM * Full Code Date Activated Date Inactivated Comments 02/03/2018 12:56 AM 02/04/2018 7:24 PM Care Teams Welding Engineer Relationship Specialty Start Date End Date Madhu Tilley MD PCP - General 07/04/20 Kit Jonas MD Surgeon General Surgery 02/04/18
--- OUTSIDE RECORDS SUMMARY | 2024-11-15 11:20 | XMS_ITS | Encounter Summary ---
Author Organization [facility] Address [address] [place] [address] Care Team Providers Care Business Systems Advisor Name Role Phone Unavailable Primary Care Provider Unavailabl e Prior Encounters Date Type Department Care Team Description 03/31/2022 Travel 03/31/2022 11:15 AM CDT Office Visit [facility] [address] [place] [address] Emperatriz Zuñiga DDS Dental caries unspecified (Primary Dx) 03/26/2022 Travel 03/26/2022 1:00 PM CDT Office Visit [facility] [address] [place] [address] Rustam Taylor DMD Last Filed Vital Signs Vital Sign Reading [...] 03/31/2022 11:39 AM CDT Plan of Treatment Not on file Procedures Procedure Name Priority Date/Time Associated Diagnosis Comments DEEP SEDATION Routine 03/31/2022 5:20 PM CDT Dental caries unspecified DEEP SEDATION/GENERAL ANESTHESIA EACH SUBSEQUENT 15 MINUTE INCREMENT Routine 03/31/2022 11:15 AM CDT DEEP SEDATION/GENERAL ANESTHESIA EACH SUBSEQUENT 15 MINUTE INCREMENT Routine 03/31/2022 11:15 AM CDT THERAPEUTIC PARENTERAL DRUGS, TWO OR MORE ADMINISTRATIONS, DIFFERENT MEDICATIONS Routine 03/31/2022 11:15 AM CDT DEEP SEDATION/GENERAL ANESTHESIA EACH SUBSEQUENT 15 MINUTE INCREMENT Routine 03/31/2022 11:15 AM CDT DEEP SEDATION/GENERAL ANESTHESIA FIRST 15 MINUTES Routine 03/31/2022 11:15 AM CDT ORAL SURG CONSULT Routine 03/31/2022 11: 15 AM CDT 11 UL ALVEOLOPLASTY IN CONJUNCTION WITH EXTRACTIONS - FOUR OR MORE TEETH OR TOOTH SPACES, PER QUADRANT Routine 03/31/2022 11:15 AM CDT 15 UL PRIMARY CLOSURE OF A SINUS PERFORATION Routine 03/31/2022 11:15 AM CDT 2 UR PRIMARY CLOSURE OF A SINUS PERFORATION Routine 03/31/2022 11:15 AM CDT 7 UR ALVEOLOPLASTY IN CONJUNCTION WITH EXTRACTIONS - FOUR OR MORE TEETH OR TOOTH SPACES, PER QUADRANT Routine 03/31/2022 11:15 AM CDT 15 EXTRACTION, ERUPTED TOOTH REQUIRING REMOVAL OF BONE AND/OR SECTIONING OF TOOTH Routine 03/31/2022 11:15 AM CDT 11 EXTRACTION, ERUPTED TOOTH REQUIRING REMOVAL OF BONE AND/OR SECTIONING OF TOOTH Routine 03/31/2022 11:15 AM CDT 10 EXTRACTION, ERUPTED TOOTH REQUIRING REMOVAL OF BONE AND/OR SECTIONING OF TOOTH Routine 03/31/2022 11:15 AM CDT 9 EXTRACTION, ERUPTED TOOTH REQUIRING REMOVAL OF BONE AND/OR SECTIONING OF TOOTH Routine 03/31/2022 11:15 AM CDT 8 EXTRACTION, ERUPTED TOOTH REQUIRING REMOVAL OF BONE AND/OR SECTIONING OF TOOTH Routine 03/31/2022 11:15 AM CDT 7 EXTRACTION, ERUPTED TOOTH REQUIRING REMOVAL OF BONE AND/OR SECTIONING OF TOOTH Routine 03/31/2022 11:15 AM CDT 6 EXTRACTION, ERUPTED TOOTH REQUIRING REMOVAL OF BONE AND/OR SECTIONING OF TOOTH Routine 03/31/2022 11:15 AM CDT 2 EXTRACTION, ERUPTED TOOTH REQUIRING REMOVAL OF BONE AND/OR SECTIONING OF TOOTH Routine 03/31/2022 11:15 AM CDT PANORAMIC RADIOGRAPHIC IMAGE Routine 03/26/2022 1:00 PM CDT BITEWING - SINGLE RADIOGRAPHIC IMAGE Routine 03/26/2022 1:00 PM CDT ADDITIONAL X-RAY Routine 03/26/2022 1:00 PM CDT SINGLE X-RAY Routine 03/26/2022 1:00 PM CDT LIMITED ORAL EVALUATION - PROBLEM FOCUSED Routine 03/26/2022 1:00 PM CDT Results * DEEP SEDATION (03/31/2022 5:20 PM CDT) Emperatriz Corado DDS - 03/31/2022 5:20 PM CDT Emperatriz Zuñiga DDS 03/31/2022 5:21 PM Deep Sedation Date/Time: 03/31/2022 5:20 PM Performed by: Emperatriz Zuñiga DDS Authorized by: Emperatriz Zuñiga DDS Consent: Consent obtained: Verbal and written Consent given by: Patient Risks discussed: Allergic reaction, prolonged hypoxia resulting in organ damage, dysrhythmia, prolonged sedation necessitating reversal, respiratory compromise necessitating ventilatory assistance and intubation, nausea, inadequate sedation and vomiting Alternatives discussed: Analgesia without sedation and anxiolysis Indications: Procedure performed: Extraction, SRG REM Intended level of sedation: Deep Pre-sedation assessment: IV: 22 gauge Vein SIte: Left arm and hand Intravenous: normal saline IV Start Time: 03/31/2022 11:30 AM ASA classification: class 2 - patient with mild systemic disease Mallampati score: II - soft palate, uvula, fauces visible Tonsils: small Thyromental distance: > 6 cm Neck Mobilty: Full Heart S1: S1 Heart S2: S2 Lungs: CTAB NPO: greater than or equal to 8 hours Pre-sedation assessments completed and reviewed: airway patency, cardiovascular function, hydration status, mental status, nausea/vomiting, pain level, respiratory function and temperature History of difficult intubation: no Pre-sedation assessment completed: 03/31/2022 11:30 AM Immediate pre-procedure details: Reassessment: Patient reassessed immediately prior to procedure Verified: bag valve mask available, emergency equipment available, intubation equipment available, IV patency confirmed, oxygen available, reversal medications available and suction available Procedure details: Sedation start time: 03/31/2022 11:31 AM Preoxygenation: Nasal cannula Position: reclined Sedation: Versed, propofol, decadron and other Analgesia: Fentanyl Intra-procedure monitoring: Blood pressure monitoring, panel monitor, continuous capnometry, continuous pulse oximetry, frequent LOC assessments and frequent vital sign checks Intra-procedure events: none Intra-procedure management: Supplemental oxygen Sedation end time: 03/31/2022 12:30 PM Total sedation time (minutes): 60 IV End Time: 03/31/2022 12:45 PM Post-procedure details: Post-sedation assessment completed: 03/31/2022 1:00 PM Complications: None Criteria for discharge: cardiovascular function satisfactory and stable, airway patency satisfactory and stable, easily arousable, responsiveness at or near presedation level, protective reflexes intact, communication at presedation level, ability to sit up unaided at presedation level and hydration adequate Patient tolerance: Tolerated well, no immediate complications Patient is stable for discharge or admission: yes Drill Operator's Name:: Jonathan Emperatriz Zuñiga DDS ANESTHESIA ORDERABLES Final Re sult Visit Diagnoses Diagnosis Start Date Dental caries unspecified 03/31/2022 Insurance [employer] [address] COMMERCIAL
[2024-11-15] MEDS: ONDANSETRON INJ 4 MG/2 ML VIAL IV PUSH (11:25)
[2024-11-15] MEDS: SODIUM CHLORIDE 0.9% IV 1,000 ML 999 ML IV CONT (11:25)
[2024-11-15] MEDS: MORPHINE SULFATE (*CRX) 4 MG/ML INJ IV PUSH (11:25)
[2024-11-15 11:27] LABS: Add Urine Microscopic? YES; Appearance Urine Cloudy (Clear); Bacteria Urine 4+ /hpf; Bilirubin Urine 1+ (Negative); Blood Urine 2+ (Negative); Color Urine Dark Yellow (Yellow); Glucose Urine UA Negative (Negative); Ketones Urine Trace mg/dL (Negative); Leukocyte Esterase Ur Negative LEU/UL (Negative); Mucus Urine Present /lpf; Need Manual Microscopic Reviewed; Nitrate Urine Negative (Negative); Protein Urine Trace mg/dL (Negative); RBC Urine 51-100 /hpf (0-2); Specific Grav Ur 1.044 (1.001-1.035); Squamous Epithelial Cell Urine Many /hpf (Few)
[2024-11-15 11:41] VITALS: BP 111/80; O2SAT 99
--- NOTE | 2024-11-15 12:16 | ED_ITS ---
HPI - Back Pain/Injury General Chief Complaint: Back Pain/Injury Stated Complaint: L flank pain Time Seen by Provider: 11/15/24 09:55 Source: patient Mode of arrival: ambulatory Limitations: no limitations History of Present Illness HPI Narrative: Patient is a 54-year-old female, with PMH of gastric bypass surgery, who presents the ED with report of left flank pain. Patient reports extensive history of kidney stones. States she has been having pain throughout her left flank region over the past couple of days. Feels similar to previous stones. Radiates into left lower abdomen. Reports nausea over the past couple days with vomiting today, which prompted her presentation. Reports slight hematuria, urinary frequency/urgency. Denies fevers. Related Data Home Medications ?Medication ?Instructions ?Recorded ?Confirmed ?Last Taken ?Type levetiracetam 1,000 mg tablet 1,000 mg PO Q12H 11/21/20 07/12/24 07/11/24 09:00 History tizanidine 4 mg capsule 8 mg PO QHS PRN muscle spasms 11/21/20 07/12/24 07/12/22 History topiramate 100 mg tablet 100 mg PO BID 07/14/22 07/12/24 Unknown History phentermine 15 mg capsule 15 mg PO DAILY 06/05/24 07/12/24 07/11/24 09:00 History Allergies Allergy/AdvReac Type Severity Reaction Status Date / Time esomeprazole Allergy Unknown Hives Verified 11/15/24 10:18 iodine Allergy Unknown Swelling Verified 11/15/24 10:18 of Lip/Tongue/Throat ketorolac (From Toradol) Allergy Hives Verified 11/15/24 10:18 Contrast Media Allergy Unknown Swelling Uncoded 11/15/24 10:18 of Lip/Tongue/Throat Review of Systems 2 Review of Systems: All systems reviewed & are unremarkable except as noted in HPI. All systems reviewed & are unremarkable except as noted in HPI and below PMFSH Past Medical History Medical History Bulging disc L5-S1 Finger fracture DDD (degenerative disc disease) Arthritis Depression Anxiety Epilepsy Migraine Abnormal uterine bleeding UTI (urinary tract infection) Gallbladder disease Kidney stone Surgical History Surgical History History of ventral hernia repair History of back surgery Status post right foot surgery x2 H/O tubal ligation H/O: hysterectomy History of x4 History of urethral stent Rt H/O lithotripsy H/O resection of small bowel History of gastric bypass History of cholecystectomy Hx of tonsillectomy Family History Family History Mother Hypertension Father Family history of chronic obstructive pulmonary disease, Onset Age: 71 Family history of diabetes mellitus in first degree relative Patient's father is Social History Social History Social History: Surrogate medical decision maker: Jonathan Golden, spouse. Code status: full code. Smoking status: Never smoker Alcohol intake: never Substance use: never Substance use type: marijuana Do You Feel Safe in your Home?: Yes Lack of Transportation: No Lack of Food: Never True Current Housing: I Have Housing Concerned About Future Housing: No Difficulty Paying Gas/Electric Bills: No Difficulty Paying for Meds: No Currently Unemployed: No Education: Trade/Vocational Certificate Difficulty w/ Childcare or Family Care: No Additional living arrangements comments: The patient lives with her and 9-year-old son in [place]. Additional occupation/education comments: Disabled. Spiritual care concerns: No Exam 2 Narrative: GENERAL: Mildly uncomfortable appearing, obese with BMI of 31.6, non-toxic, in no acute distress. HEAD: Normocephalic, atraumatic. RESPIRATORY: Airway patent, respirations nonlabored. Clear to auscultation bilaterally, no rales, rhonchi, wheezing. CARDIOVASCULAR: Regular rate and rhythm without murmurs, rubs, or gallops. ABDOMINAL: Soft, mild tenderness palpation in left lower abdomen, left pelvic region. Nondistended. Normoactive BS. MUSCULOSKELETAL: Moves all extremities. No gross deformities. Mild TTP in L flank/lumbar region. No midline spinal tenderness. SKIN: Warm, dry, normal color. NEURO: A&O X3. Speech clear. Cranial nerves II-XII grossly intact. Steady gait. No ataxic movements. PSYCHIATRIC: Appropriate mood and affect. Normal interaction. Course Vital Signs Vital signs: Vital Signs Temperature 97.8 F 11/15/24 10:13 Pulse Rate 87 11/15/24 10:13 Respiratory Rate 18 11/15/24 10:13 Blood Pressure 100/73 11/15/24 10:13 Pulse Oximetry 100 11/15/24 10:13 Oxygen Delivery Room Air 11/15/24 10:13 Temperature 97.8 F 11/15/24 13:21 Pulse Rate 70 11/15/24 13:21 Respiratory Rate 16 11/15/24 13:21 Blood Pressure 101/58 L 11/15/24 13:21 Pulse Oximetry 100 11/15/24 13:21 Oxygen Delivery Room Air 11/15/24 10:13 MDM - Back Pain/Injury MDM Narrative Medical decision making narrative: Patient presented to ED with left flank pain over the past couple days, history of kidney stones. Vital signs are stable upon arrival. Patient is in no acute distress. Afebrile. Laboratory studies are fairly unremarkable. No leukocytosis. Stable electrolytes. Bicarb slightly low at 18. Patient given fluids. Kidney function is stable. Normal LFTs. Urine with elevated specific gravity, trace ketones, 51-100 RBC, 6-10 WBC, 4+ urine bacteria. Sent for culture. Will treat for infection as patient is acutely symptomatic. CT of the abdomen/pelvis was obtained and showing bilateral nonobstructing nephrolithiasis, no actively passing stones. Discussed lab and imaging findings with patient. She is resting comfortably on reeval, but it still complaining of pain, stating she is miserable. Per records, patient seen here frequently for similar L flank pain with often negative w/u. Patient stating she does not feel she is able to empty her bladder fully. Bladder scan was obtained and without any evidence of retention. Given first dose of abx in the ED. Previous positive urine cultures have all been sensitive to Augmentin. Will start patient on this. Given [place] for additional pain relief. Feel she is otherwise safe for discharge home at this time. Recommended close f/u with PCP for further evaluation. Will d/c with nausea/pain medication. Discussed strict return precautions. She agrees with plan. Discharged in stable condition. Medical Records Attestation: I reviewed the patient's medical records. Lab Data Attestation: I reviewed the patient's lab results. 11/15/24 10:11 11/15/24 10:11 Labs: Lab Results 11/15/24 Range/Units 10:11 WBC 8.1 (4.5-10.0) K/mm3 RBC 5.03 (4.2-5.4) M/mm3 Hgb 13.3 (12.0-15.0) g/dL Hct 41.7 (37.0-47.0) % MCV 82.9 (80-100) fl MCH 26.4 (26-34) pg MCHC 31.9 L (32-36) g/dl RDW 15.6 H (11.5-14.5) % Plt Count 252 (150-375) k/mm3 MPV 9.6 (7.4-10.4) fl Immature Gran % (Auto) 0.4 (0-0.5) % Neut % (Auto) 75.4 H (45.5-73.1) % Lymph % (Auto) 16.6 L (18.3-44.2) % [place] % (Auto) 5.8 (2.6-8.5) % Eos % (Auto) 1.4 (0-4.4) % Baso % (Auto) 0.4 (0.2-1.2) % Lymph # (Auto) 1.34 (0.9-3.2) K/mm3 [place] # (Auto) 0.5 (0.1-0.6) K/mm3 Eos # (Auto) 0.1 (0-0.3) K/mm3 Baso # (Auto) 0.0 (0.0-0.1) K/mm3 Abs Immat Gran (auto) 0.03 (0.00-0.031) K/mm3 Absolute Neuts (auto) 6.1 (1.3-6.7) K/mm3 Absolute Nucleated RBC 0.000 (0.0-0.012) K/mm3 Nucleated RBC % 0.0 (0.0-0.2) % Sodium 139 (137-145) mmol/L Potassium 4.0 (3.4-5.0) mmol/L Chloride 109 H (98-107) mmol/L Carbon Dioxide 18 L (22-30) mmol/L Anion Gap 12 (4-12) mmol/L BUN 15 (7-17) mg/dL Creatinine 0.70 (0.7-1.0) mg/dL Estim Creat Clear Calc 83 ml/min Estimated GFR > 60 (59 - ) Glucose 115 H (65-110) mg/dL Calcium 8.9 (8.4-10.2) mg/dL Total Bilirubin 0.6 (0.2-1.3) mg/dL AST 28 (14-36) U/L ALT 33 (6-35) U/L Alkaline Phosphatase 98 (38-126) U/L Total Protein 7.0 (6.3-8.2) g/dL Albumin 4.1 (3.5-5.1) g/dL Urine Color Dark yellow (Yellow) Urine Appearance Cloudy H (Clear) Urine pH 6.0 (5.0-9.0) Ur Specific [place] 1.044 H (1.001-1.035) Urine Protein Trace (Negative) mg/dL Urine Glucose (UA) Negative (Negative) mg/dL Urine Ketones Trace H (Negative) mg/dL Ur Blood (Man) 2+ H (Negative) Urine Nitrate Negative (Negative) Urine Bilirubin 1+ H (Negative) Urine Urobilinogen 1.0 (<2.0) mg/dL Add Ur Microanalysis Reviewed Leukocyte Esterase Rfl Negative (Negative) PATRICK/UL Urine RBC 51-100 H (0-2) /hpf Urine WBC 6-10 H (0-3) /hpf Ur Squamous Epith Cells Many H (Few) /hpf Urine Bacteria 4+ H /hpf Urine Casts 3-5 Urine Mucus Present /lpf Imaging Data Attestation: I personally reviewed and interpreted this imaging study as follows: Radiologist's impression: ITS Impressions Abdomen/Pelvis CT 11/15/24 11:23 IMPRESSION: 1. Bilateral nonobstructing nephrolithiasis. No acute intra-abdominal/pelvic process. Discharge Plan Discharge Clinical Impression: Left flank pain, Bilateral nephrolithiasis UTI (urinary tract infection) Qualifiers: Urinary tract infection type: acute cystitis Hematuria presence: with hematuria Qualified Code(s): N30.01 - Acute cystitis with hematuria Patient Disposition: Home, Self-Care Condition: Stable Instructions: Antibiotic Form, Urinary Tract Infection in Women (ED), Flank Pain (ED) Additional Instructions: Your workup here was reassuring. Take antibiotics as prescribed for urinary tract infection. Continue Tylenol, Bentyl as needed for abdominal discomfort. Utilize [place] as needed for more severe pain. Zofran as needed for further nausea. Follow-up closely with your primary care doctor for further evaluation and urine culture results. Return to the ED if you experience worsening or severe pain, unable to keep down food or drink, severe blood in urine, persistent fevers, or any other symptoms of concern. Patient Language: Slovenian Prescriptions: New hydrocodone-acetaminophen 5-325 mg tablet 1 tablet PO Q6H PRN (Reason: pain) Qty: 5 0RF ondansetron 4 mg tablet,disintegrating 4 mg PO Q8H PRN (Reason: nausea and vomiting) Qty: 15 0RF amoxicillin-pot clavulanate 875-125 mg tablet 1 tablet PO Q12H 7 Days Qty: 14 0RF dicyclomine 20 mg tablet 20 mg PO TID PRN (Reason: Abdominal Discomfort) Qty: 15 0RF No Action tizanidine 4 mg capsule 8 mg PO QHS PRN (Reason: muscle spasms) levetiracetam 1,000 mg tablet 1,000 mg PO Q12H phentermine 15 mg capsule 15 mg PO DAILY Eliquis DVT-PE Treat 30D Start 5 mg (74 tabs) tablets,dose pack See Rx Instructions .ROUTE .COMPLEX Qty: 74 0RF Rx Instructions: orally per package directions topiramate 100 mg tablet 100 mg PO BID Follow-up/Referrals: Madhu Tilley MD [Primary Care Provider] - Time of Disposition: 13:29
[2024-11-15 13:21] VITALS: BP 101/58; PULSE 70; RESP 16; TEMP 36.6; O2SAT 100
[2024-11-15] MEDS: AMOXICILLIN/CLAVULANATE K 875-125 MG TAB 1 TABLET PO (13:24)
[2024-11-15] MEDS: HYDROcodone/acetaminophen (*CRX) 5-325 MG TABLET 1 TAB PO (13:24)
== END 2024-11-15 13:37 | disposition home or self-care (01) ==
PROVIDERS: Emergency Provider Physician Assistant; PCP Internal Medicine
DX: N30.01 Acute cystitis with hematuria (principal); N20.0 Calculus of kidney; R10.9 Unspecified abdominal pain; M19.90 Unspecified osteoarthritis, unspecified site; F32.A Depression, unspecified; F41.9 Anxiety disorder, unspecified; G40.909 Epilepsy, unspecified, not intractable, without status epilepticus; Z87.440 Personal history of urinary (tract) infections
CPT/HCPCS: 36415; 74176; 80053; 81001; 85025; 87086; 96361; 96374; 96375; 99284; A9270; J2270; J2405; J7030

== ENCOUNTER 2024-12-20 10:46 | Emergency (ER) | payer MEDICARE, MEDICAID, SELFPAY ==
--- NOTE | ~2024-12-20 | CT_ITS ---
CT abdomen pelvis wo con Ordering provider: Whitney Barr PA-C History: 54 years Female with . abd pain, vomiting . Comparison: November 15, 2024 Technique: CT abdomen and pelvis without IV and without oral contrast. Automated exposure control and iterative reconstruction technique were employed. The dose-length product was 714.62 mGy-cm. Findings: VISUALIZED LOWER CHEST: Normal. UPPER ABDOMINAL ORGANS: Liver: Normal. Gallbladder: Status post cholecystectomy. Spleen: Normal. Stomach/duodenum: Postoperative changes in the stomach. Pancreas: Normal. Adrenals: Normal. Kidneys: Tiny stones in the left kidney lower pole. Tiny stones seen in the right kidney lower pole. Stone in the right upper ureter is noted measuring 3 mm with mild fullness of the renal pelvis. PELVIC ORGANS: The bladder is underfilled. BOWEL AND MESENTERY: Colon: No evidence of diverticulitis. The Normal appendix. Small Bowel: Normal. No obstruction. Peritoneum/mesentery: No free air or free fluid. No mesenteric lymphadenopathy. RETROPERITONEUM: Mild atheromatous disease of the abdominal aorta. No retroperitoneal lymphadenopat hy. MUSCULOSKELETAL: Superficial soft tissues: The superficial soft tissues are normal. Bones: Age appropriate degenerative changes of the spine. IMPRESSION: 1. Stone in the right upper ureter. 2. Bilateral kidney stones. 3. No evidence of appendicitis, diverticulitis or intestinal obstruction. 2019. 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 IMPRESSION: 1. Stone in the right upper ureter. 2. Bilateral kidney stones. 3. No evidence of appendicitis, diverticulitis or intestinal obstruction. 2019 .
[2024-12-20 10:56] VITALS: BP 138/93; PULSE 104; RESP 17; TEMP 36.4; O2SAT 99
--- OUTSIDE RECORDS SUMMARY | 2024-12-20 11:38 | XMS_ITS | Patient Health Record ---
Author Organization [facility] Address [address] [place] [address] Care Team Providers Care Rn Relief Charge Name Role Phone Madhu Tilley Primary Care Provider Allergies Allergen (clinical drug ingredient) Drug/Non Drug Allergy documented on EMR Reaction Allergy Type Onset Date Status esomeprazole Nexium Unknown Drug Allergy Acti ve ketorolac toradol (uncoded) Unknown Allergy Ac tive Contrast Dye (uncoded) Unknown Allergy Active Results Component Value Reference Range Notes CMP 14 Comprehensive Metabol ic Panel* Reviewed date:06/07/2024 11:46:49 AM Interpretation: Performing Lab: Notes/Report: Valproic Acid (Depakote)(R), S Reviewed date:06/07/2024 11:47:23 AM Interpretation: Performing Lab: Notes/Report: Vitamin D, 25-Hydroxy* Reviewed date:06/07/2024 11:49:21 AM Interpretation: Performing Lab: Notes/Report: Magnesium, Serum* Reviewed date:06/07/2024 11:49:45 AM Interpretation: Performing Lab: Notes/Report: TSH Rfx on Abnormal to Free T4 Reviewed date:06/07/2024 11:50:58 AM Interpretation: Performing Lab: Notes/Report: CBC With Differential/Platel et* Reviewed date:06/07/2024 11:50:48 AM Interpretation: Performing Lab: Notes/Report: Iron and TIBC* Reviewed date:06/07/2024 11:51:43 AM Interpretation: Performing Lab: Notes/Report: Vitamin B12 and Folate Reviewed date:06/07/2024 11:52:12 AM Interpretation: Performing Lab: Notes/Report: Phosphorus, Serum* Reviewed date:06/07/2024 11:52:29 AM Interpretation: Performing Lab: Notes/Report: PTH, Intact Reviewed date:06/07/2024 11:52:51 AM Interpretation: Performing Lab: Notes/Report: Lipid Panel* Reviewed date:06/07/2024 12:00:17 PM Interpretation: Performing Lab: Notes/Report: Hemoglobin A1c* Reviewed date:06/07/2024 12:00:35 PM Interpretation: Performing Lab: Notes/Report: Reason For Referral No Information Medications Medication SIG (Take, Route, Frequency, Duration) Notes Start Date End Date Status Cetirizine HCl 10 MG 1 tablet Orally Onc e a day Unknown Eliquis 5 MG 1 tablet Orally twic e a day for 30 days Active Fluticasone Propionate 50 MCG/ACT 2 sprayS in each nostril Nasally Once a day Active levETIRAcetam 1000 MG TAKE 1 TABLET BY M OUT TWICE DAILY for 90 Active tiZANidine HCl 4 MG 1 tablet Orally four times a day for 30 days Active Phentermine HCl 15 MG 1 capsule Orally O nce a day for 30 days 12/18/2024 Active Topiramate 100 MG 1 tablet Orally Twic e a day Active Amoxicillin-Pot Clavulanate 875-125 MG 1 tablet Orally [...] Problem Status W/U Status Risk Notes Problem 151092031 Hypomagnesemia (E83.42) Active confirmed Problem 62230324 Other chronic pa in (G89.29) Active confirmed Problem 833897040 Lumbago with sciatica, unspecified side (M54.40) Active confirmed Problem 406684081 Overactive bladd er (N32.81) Active confirmed Problem 69697810 Mood disorder (F39) Active confirmed Problem Posttraumatic stress disorder (19015774) PTSD (post-traumatic stress disorder) (F43.10) Active confirmed Problem 25530122 Vitamin D defici ency (E55.9) Active confirmed Problem Seizure disorder (291321143) Seizure disorder (G40.909) Active confirmed Problem Iron deficiency anemia (87253977) Iron deficiency anemia (D50.9) Active confirmed Problem 03248623 Chronic fatigue (R53.82) Active confirmed Problem Plantar fasciitis (152586142) Plantar fasciitis (M72.2) Active confirmed Problem Moderate recurrent major depression (62525175) Moderate episode of recurrent major depressive disorder (F33.1) 2017 Active confirmed Problem Backache (982012198) Dorsalgia (M54.9) Active confirmed Problem 645205444 Obesity (BMI 30-39.9) (E66.9) Active confirmed Problem 089194319 Panic attacks (F41.0) Active confirmed Problem 20437938 Essential hypertension (I10) 2018 Active confirmed Problem 80868923 Migraine without status migrainosus, not intractable, unspecified migraine type (G43.909) Active confirmed SEEing NEUROLOGIST Problem 35363610 Hyperparathyroid ism (E21.3) Active confirmed Problem 574190922 Excoriation (skin-picking) disorder (F42.4) Active confirmed Problem Malabsorption syndrome (05161243) Malabsorption due to intolerance, not elsewhere classified (K90.49) Active confirmed Problem 97504880 Kidney stones (N20.0) Active confirmed Problem Body mass index 30+ - obesity (973711577) Body mass index (BMI) of 30.0-30.9 in adult (Z68.30) Active confirmed Problem Obesity (856736323) Obesity, unspecified classification, unspecified obesity type, unspecified whether serious comorbidity present (E66.9) Active confirmed Problem History of bariatric surgical procedure (476110537) Gastric bypass status for obesity (Z98.84) 2022 Active confirmed Problem 746792765 Gastroesophageal reflux disease, unspecified whether esophagitis present (K21.9) Active confirmed Problem 52878751 Multinodular goi ter (nontoxic) (E04.2) Active confirmed Problem Metabolic syndrome (108118130) Metabolic syndrome (E88.810) Active confirmed Vital Signs Heart Rate 91 /min 07/25/2024 Respiratory Rate 16 /min 07/25/2024 Oximetry 91 % 07/25/2024 Blood pressure diastolic 80 mm Hg 07/25/2024 Height 64 in 07/25/2024 Blood pressure systolic 128 mm Hg 07/25/2024 Weight 203.2 lbs 07/25/2024 BMI 34.88 kg/m2 07/25/2024 Encounters Encounter Location Date Provider Diagnosis [address] [address] 05/30/2024 Madhu Tilley Plantar fasciitis M7 2.2 [...] Metabolic syndrome E88.810 and Dietary counseling Z71.[address] [address] 06/28/2024 Madhu Tilley Nutritional counseli hodan Z71.3 ; Plantar fasciitis M72.2 ; Dorsalgia of multiple sites in spine M54.9 ; Migraine without status migrainosus, not intractable, unspecified migraine type G43.909 ; Cervical myofascial pain syndrome M79.18 ; Right hip pain M25.551 ; Dorsalgia M54.9 ; Body mass index (BMI) of 30.0-30.9 in adult Z68.30 and Seizure disorder G40.[address] [address] 07/25/2024 Madhu Tilley Nutritional counseli hodan Z71.3 and DVT of right axillary vein, acute I82.A11 [address] [address] 08/21/2024 Madhu Tilley Body mass index (BMI ) of 30.0-30.9 in adult Z68.30 and DVT of right axillary vein, acute I82.A11 [facility] [address] [place] [address] 04/04/2024 Madhu Tilley Breast cancer screen ing by mammogram Z12.[address] [address] 08/10/2024 Madhu Tilley [address] [address] 09/05/2024 Madhu Tilley [address] [address] 09/26/2024 Madhu Tilley UTI (urinary tract infection) N39.0 Assessments Encounter Date Diagnosis (ICD Code) Assessment Notes Treatment Notes Treatment Clinical Notes Section Notes 09/26/2024 UTI (urinary tract infection) (ICD-10 - N39.0) 06/28/2024 Nutritional counseli ng (ICD-10 - Z71.3) 05/30/2024 Body mass index (BMI ) of 30.0-30.9 in adult (ICD-10 - Z68.30) DISCUSSED MEDITERRANEAN DIET AND SENT INFO 06/28/2024 Plantar fasciitis (ICD-10 - M72.2) 07/25/2024 Nutritional counseli ng (ICD-10 - Z71.3) 07/25/2024 DVT of right axillar y vein, acute (ICD-10 - I82.A11) 08/21/2024 Body mass index (BMI ) of 30.0-30.9 in adult (ICD-10 - Z68.30) 08/21/2024 DVT of right axillar y vein, acute (ICD-10 - I82.A11) 04/04/2024 Breast cancer screening by mammogram (ICD-10 - Z12.31) 05/30/2024 Plantar fasciitis (ICD-10 - M72.2) DISCUSSED AND DEMONSTRATED HEEL STRETCHES, HEEL CUPS, NO BAREFOOT WALKING, GOOD FOOTWEAR 06/28/2024 Dorsalgia of multipl e sites in spine (ICD-10 - M54.9) 05/30/2024 Multinodular goiter (nontoxic) (ICD-10 - E04.2) 06/28/2024 Migraine without status migrainosus, not intractable, unspecified migraine type (ICD-10 - G43.909) 05/30/2024 Essential hypertensi on (ICD-10 - I10) 05/30/2024 Moderate episode of recurrent major depressive disorder (ICD-10 - F33.1) 06/28/2024 Cervical myofascial pain syndrome (ICD-10 - M79.18) 06/28/2024 Right hip pain (ICD- 10 - M25.551) 05/30/2024 Seizure disorder (ICD-10 - G40.909) 05/30/2024 Nutritional counseli ng (ICD-10 - Z71.3) 06/28/2024 Dorsalgia (ICD-10 - M54.9) 06/28/2024 Body mass index (BMI ) of 30.0-30.9 in adult (ICD-10 - Z68.30) 05/30/2024 Vitamin D deficiency (ICD-10 - E55.9) 05/30/2024 Hypomagnesemia (ICD- 10 - E83.42) 06/28/2024 Seizure disorder (ICD-10 - G40.909) 05/30/2024 Chronic fatigue (ICD-10 - R53.82) 05/30/2024 [...] End Date [employer] Medicare [address] [address] [place] [address] [id number] Misti Bai Self - patient is the insured 3 3 [employer] Medicare [address] [address] [place] [address] [id number] Misti Bai Self - patient is the insured 4 MEDICAID [address] [place] [address] [id number] Misti Bai Self - patient is the [...] 1991 gastric bypass surgery 2010 Bowel resection 2016 exploratory lap 2018 removal of benign small bowel tumor 03/04 21 spinal stenosis surgery 10/2021 Gastric bypass reverse 02/15/2023 Hospitalization History Reason Date(Month/Year) kidney infection 10/2023 Stomach issue 06/2022 Stomach issues 03/2022 hernia repair 05/2018
--- OUTSIDE RECORDS SUMMARY | 2024-12-20 11:38 | XMS_ITS | Referral Summary ---
Author Organization [facility] Address [address] [place] [address] Care Team Providers Care Grain Drier Operator Name Role Phone Kit Jonas MD Unavailable [phone] Madhu Tilley MD Primary Care Provider [phone] Allergies Active Allergy Reactions Criticality Noted Date [...] often do you attend chur ch or oriental orthodox services? Never 02/04/2023 Do you belong to any clubs o r organizations such as alevism groups, unions, fraternal or athletic groups, or [...] place to sleep or slept in a longterm (including now)? No 02/04/2023 Housing Stability Vital [...] on file Legal Sex Female 2:16 AM CAP PARTS CUTTER Gender Identity Not on file Sexual Orientation Not on file Last Filed Vital Signs Vital Sign Reading Time Taken Comments Blood Pressure 149/87 09/18/2023 7:03 PM CAP PARTS CUTTER Pulse 80 09/18/2023 7:03 PM CAP PARTS CUTTER Temperature 37 C (98.6 F) 09/18/2023 7:03 PM CAP PARTS CUTTER Respiratory Rate 16 09/18/2023 7:03 PM CAP PARTS CUTTER Oxygen Saturation 100% 09/18/2023 7:03 PM CAP PARTS CUTTER Inhaled Oxygen Concentration - - Weight 88.5 kg (195 lb) 09/18/2023 2:48 PM CAP PARTS CUTTER Height 162.6 cm (5' 4 ) 06/06/2023 [...] CDT Narrative 05/10/2017 5:10 PM CDT Acc#: [id number] JOSE RAUL 0015 - Diag Mamm BI [...] M.D. TECHNOLOGIST: SHANE DUMONT TECHNOLOGIST MEDICAL IMAGING HYDRATOR OPERATOR: [facility] TRANSCRIBE DATE/TIME: May 11 2017 4:05P RADIOLOGIST: MARJORIE FRIAS M.D. READ ON: May 10 2017 3:22P ORDERING DR: NADIA BROWN M.D. THIS DOCUMENT HAS BEEN ELECTRONICALLY SIGNED BY: MARJORIE FRIAS M.D. ON: May 11 2017 4:05P Attending: DENG JACOBSON Requesting: NADIA BROWN Requesting Attending Attending ID: [id number] Requesting ID: [id number] Report To 1 ID: [id number] Report To 1 Name: DENG JACOBSON Report To 1 FAX: [phone] Report To 2 ID: Report To 2 Name: , Report To 2 FAX: -- NextGen Order #: Procedure Note Miscellaneous, Not In File / Provider, MD Keren - 05/11/2017 Acc#: [id number] JOSE RAUL 0015 - Diag Mamm BI [...] M.D. TECHNOLOGIST: SHANE DUMONT TECHNOLOGIST MEDICAL IMAGING HYDRATOR OPERATOR: [facility] TRANSCRIBE DATE/TIME: May 11 2017 4:05P RADIOLOGIST: MARJORIE FRIAS M.D. READ ON: May 10 2017 3:22P ORDERING DR: NADIA BROWN M.D. THIS DOCUMENT HAS BEEN ELECTRONICALLY SIGNED BY: MARJORIE FRIAS M.D. ON: May 11 2017 4:05P Attending: DENG JACOBSON Requesting: NADIA BROWN Requesting Attending Attending ID: [id number] Requesting ID: [id number] Report To 1 ID: [id number] Report To 1 Name: DENG JACOBSON Report To 1 FAX: [phone] Report To 2 ID: Report To 2 Name: , Report To 2 FAX: -- NextGen Order #: Nadia Brown MD IMG MAMMO PROCEDURES E dited Result - Final from Last 3 Months or Most Recently Relevant to Health Maintenance Additional Health Concerns Infection Onset Date Last Indicated MDR gram neg/ESBL Comment:ESBL E.coli urine 11/07/17, 11/15/17, 04/16/18, 02/21/19 11/07/2017 02/21/2019 Insurance [employer]PA MEDICARE [facility] CLAIMS OFFICE [facility] MEDICARE ADVANTAGE [address] [place] [address] [facility] MEDICARE ADVANTAGE IDPA [facility] MEDICARE ADVANTAGE Advance Directives For more information, please contact: [phone] * Full Code (Latest Code Status on File) Date Activated Date Inactivated Comments 02/03/2023 7:52 PM 02/05/2023 5:54 PM * Full Code Date Activated Date Inactivated Comments 04/19/2018 11:35 AM 04/20/2018 8:58 PM * Full Code Date Activated Date Inactivated Comments 02/03/2018 12:56 AM 02/04/2018 7:24 PM Care Teams Grain Drier Operator Relationship Specialty Start Date End Date Madhu Tilley MD PCP - General 07/04/20 Kit Jonas MD Surgeon General Surgery 02/04/18
--- OUTSIDE RECORDS SUMMARY | 2024-12-20 11:38 | XMS_ITS | Patient Health Record ---
Author Organization [facility] Address [address] [address] Care Team Providers Care Occupational Therapist Per Diem Name Role Phone Anum Lisa Primary Care Provider [phone] Angelina Willis Unavailable Unavailable Reason For Referral [...] Risk Notes Problem Mild recurrent major depression (52650335) Major depressive disorder, recurrent episode, mild (296.31) 1 Active confirmed ([facility]) Added By: Angelina Garrett Problem Anxiety state (604142780) Anxiety state, unspecified (300.00) 1 Active confirmed ([facility]) Added By: Angelina Garrett Plan Of Treatment No Information Medical (General) History Surgical History Surgery Date(Month/Year) gastric bypass 2010 hernia repair 2011 lithotripsy October 2012 Hysterectomy
--- OUTSIDE RECORDS SUMMARY | 2024-12-20 11:38 | XMS_ITS | CONTINUITY OF CARE DOCUMENT ---
Author Name bruno carr Address Unknown Organization [facility] Address [address] [facility] [address] [place] [address] Phone [phone] Care Team Providers Care Athletic Equipment Manager Name Role Phone Liseth GUERRERO, Yung Unavailable GAVINO QUINTEROS MD Unavailable [phone] MADDY BAIRD MD Unavailable PROBLEMS Condition Status Date Provider Notes h/o [...] In-person encounter Office Visit Yung Childers MD [facility] HTNh/o Kidney stones - In-person encounter Office Visit Yung Childers MD [facility] - In-person encounter Office Visit Yung Childers MD [facility] - In-person encounter Office Visit Yung Childers MD [facility] - In-person encounter Office Visit Jaime Beck MD [facility] CHEST PAIN-02/21 NUC NEGSHORTNESS OF BREATH;NML, CXR, BNP AND DDIMER 09LVH;NML EF 02/21DYSPNEA ON EXERTION;WILL DO SPIROMETRYOBESITY;CA USE OF SOB? VITAL SIGNS Date Observation Value Provider Body Mass Index (Ratio) 32.78 kg/m2 Bud Childers MD blood pressure, diastolic 62 mm[Hg] Colton pickering [place] blood pressure, systolic 100 mm[Hg] Savannah gabriel [place] oxygen saturation, oximetry 99 % [place] respiratory rate E&M 16 /min [place] pulse rate 76 /min [place] weight E&M 197 [lb_av] [place] height E&M 65 [in_i] [facility] Body Mass Index (Ratio) 32.45 kg/m2 Bud Childers MD blood pressure, cuff size regular Ke rri Jory blood pressure, diastolic 66 mm[Hg] Ke rri Jory blood pressure, systolic 110 mm[Hg] Cely Corley oxygen saturation, oximetry 97 % Nadia Corley respiratory rate E&M 18 /min Nadia giles pulse rate 42 /min Nadia vazquez weight E&M 195 [lb_av] Nadia Blackman [facility] height E&M 65 [in_i] Nadia Blackman [facility] Body Mass Index (Ratio) 33.28 kg/m2 Bud Childers MD blood pressure, cuff size regular Ke rri Jory blood pressure, diastolic 74 mm[Hg] Ke jacei Jory blood pressure, systolic 116 mm[Hg] Cely Corley oxygen saturation, oximetry 98 % Nadia Diazkhanh respiratory rate E&M 18 /min Nadia Portillo alclivejarod pulse rate 75 /min Nadia Blackman [facility] weight E&M 200 [lb_av] Nadia Diazyocastajenniferjose vazquez height E&M 65 [in_i] Nadia Diazyocastaethandereck [facility] Body Mass Index (Ratio) 32.95 kg/m2 Bud Childers MD blood pressure, cuff size regular Ke kiran Jory height E&M 65 [in_i] Nadia Hiral vazquez blood pressure, diastolic 80 mm[Hg] Ke kiran Jory blood pressure, systolic 122 mm[Hg] Cely aragon Jory oxygen saturation, oximetry 99 % Nadia Jory respiratory rate E&M 18 /min Nadia Portillo tisha pulse rate 87 /min Nadia Diazyocastadelano [facility] weight E&M 198 [lb_av] Nadia Diazoctavio [facility] blood pressure, diastolic 60 mm[Hg] Kyung sherman [...] Payer name Policy type / Coverage type Castaner red green party ID AARP MEDICARE ADVANTAGE ([facility] COMPLETE PPO) Other [id number] ADVANCE DIRECTIVES Name Date DISCUSSED - NO [...] ..... One tab. daily Orders: S pirometry (CPT-12171) BP today: 101/60 Prior BP: / () [...] or scar. (03/04/2009) Orders: C omplete Echo (CPT-93723) Jaime Beck MD [place] due to obesity: [...] STR - Adenosine ZIO Holter DLCO - 50974 FRC - 99289 FVC - 60825 Complete Echo Complete Echo Spirometry HISTORY OF PROCEDURES Procedure Date Procedure Name Provider Procedure Notes S tatus Ambulatory BP Yung Childers MD comple dwight Stress EKG Al Maguire MD completed Regadenoson, 4 units Yung Childers MD completed Cardiolite, 2 units Yung Childers MD completed SPECT Images Shy Villasenor MD complet ed SNOMED-CT: 28359643 Physical Exam, Performed: Pulse Exam of Foot Yung Childers MD completed SNOMED-CT: 689018263 774925 Current Medications Documented Yung Childers MD completed SNOMED-CT: 73169289 Physical Exam, Performed: Pulse Exam of Foot Yung Childers MD completed SNOMED-CT: 560502777 327938 Current Medications Documented Yung Childers MD completed FVC / MVV with bronchodilator - 17129 Yung Childers MD completed FRC - 15043 Yung Childers MD complete d SpO2 - 95519 Yung Childers MD complet ed DLCO - 77591 Yung Childers MD complet ed IVAN Childers MD co mpleted SNOMED-CT: 53011971 Physical Exam, Performed: Pulse Exam of Foot Yung Childers MD completed EKG Yung Childers MD completed SNOMED-CT: 904358875 762210 Current Medications Documented Yung Childers MD completed
--- OUTSIDE RECORDS SUMMARY | 2024-12-20 11:38 | XMS_ITS | Clinical Summary ---
Author Organization [facility] Address [address] [place] [address] Phone Care Team Providers Care Law Examiner Name Role Phone Madhu Tilley MD Primary Care Provider [phone] Allergies Active Allergy Reactions Criticality Noted Date [...] Comments Blood Pressure 177/89 08/31/2023 5:00 PM COUNTER INSTALLER Pulse 79 08/31/2023 5:00 PM COUNTER INSTALLER Temperature 36.9 C (98.4 F) 08/31/2023 3:04 PM COUNTER INSTALLER Respiratory Rate 17 08/31/2023 3:30 PM COUNTER INSTALLER Oxygen Saturation 99% 08/31/2023 5:00 PM COUNTER INSTALLER Inhaled Oxygen Concentration - - Weight 90.7 kg (200 lb) 08/31/2023 3:15 PM COUNTER INSTALLER Height 162.6 cm (5' 4 ) 08/31/2023 3:04 PM COUNTER INSTALLER Body Mass Index 34.33 08/31/2023 3:04 PM COUNTER INSTALLER Plan of Treatment Health Maintenance Due Date [...] age to complete this topic Insurance [place]ICAID [place] MEDICARE C [facility] Care Teams Law Examiner Relationship Specialty Start Date End Date Madhu Tilley MD [address] [place], [place] [id number] PCP - General Internal Medicine 08/31/23
--- OUTSIDE RECORDS SUMMARY | 2024-12-20 11:38 | XMS_ITS | Clinical Summary ---
Author Organization [facility] Address [address] [place] [address] Care Team Providers Care Magnetic Locater Name Role Phone Unavailable Primary Care Provider [...] Screening with HPV 2000 Mammogram Screening 2010 Pneumococcal Vaccine: 50+ Ye ars (1 of 1 - PCV) 2020 Zoster Vaccines (1 of 2) 2020 COVID-19 Vaccine ( - 2023-2 5 season) 2024 Meningococcal B Vaccine Aged Out No l onger eligible based on patient's age to complete this topic Meningococcal Vaccine Aged Out No parisa tereza eligible based on patient's age to complete this topic RSV Immunizations Under 20 Months Aged Out No longer eligible based on patient's age to complete this topic
--- OUTSIDE RECORDS SUMMARY | 2024-12-20 11:38 | XMS_ITS | Clinical Summary ---
Author Organization [facility] Address [address] [place] [address] Phone Care Team Providers Care Dryer Operator Name Role Phone Madhu Tilley MD Primary Care Provider [phone] Allergies Active Allergy Reactions Criticality Noted Date [...] Comments Blood Pressure 113/80 09/16/2019 4:37 PM INSTRUCTOR PRIVATE Pulse 79 09/16/2019 4:37 PM INSTRUCTOR PRIVATE Temperature 36.4 C (97.6 F) 09/16/2019 1:11 PM INSTRUCTOR PRIVATE Respiratory Rate 18 09/16/2019 4:37 PM INSTRUCTOR PRIVATE Oxygen Saturation 95% 09/16/2019 4:37 PM INSTRUCTOR PRIVATE Inhaled Oxygen Concentration - - Weight 79.4 kg (175 lb) 09/16/2019 1:11 PM INSTRUCTOR PRIVATE Height 162.6 cm (5' 4 ) 09/16/2019 1:11 PM INSTRUCTOR PRIVATE Body Mass Index 30.04 09/16/2019 1:11 PM INSTRUCTOR PRIVATE Plan of Treatment Health Maintenance Due Date Last Done Comments HEPATITIS B VACCINES (1 of 3 - 19+ 3-dose series) 04/1710/02/2008 HPV/Cotest (21-29) 1991 CERVICAL CANCER SCREENING 2000 HPV/Cotest (30-65) 2000 PAP SMEAR 2000 BREAST CANCER SCREENING 2010 COLORECTAL SCREENING 2015 Colorectal Cancer Screening 2015 FIT-DNA Q 3 years 2015 FIT/FOBT Q 1 year 2015 Flex Sig/CT Colonography Q 5 years 2015 ZOSTER VACCINE (1 of 2) 2020 DTAP/TDAP/TD VACCINES (2 - Td or Tdap) 10/28/2022 INFLUENZA VACCINE (#1) 2024 07/17/2018 Insurance MEDICARE PART A AND B Advance Directives For more information, please contact: [phone] * Full Code (Latest Code Status on File) Date Activated Date Inactivated Comments 07/16/2018 9:55 PM 07/19/2018 2:03 PM Care Teams Dryer Operator Relationship Specialty Start Date End Date Madhu Tilley MD [address] [facility] [address] [place] [address] PCP - General Internal Medicine 08/27/19
--- OUTSIDE RECORDS SUMMARY | 2024-12-20 11:38 | XMS_ITS | Clinical Summary ---
Author Organization [facility] Address [address] [place] [address] Care Team Providers Care Portable Track Line Marker Name Role Phone Kit Jonas MD Unavailable [phone] Madhu Tilley MD Primary Care Provider [phone] Allergies Active Allergy Reactions Criticality Noted Date [...] often do you attend chur ch or congregational services? Never 02/04/2023 Do you belong to any clubs o r organizations such as religion groups, unions, fraternal or athletic groups, or [...] place to sleep or slept in a custodial (including now)? No 02/04/2023 Housing Stability Vital [...] on file Legal Sex Female 2:16 AM HEAD NURSE Gender Identity Not on file Sexual Orientation Not on file Obstetrics History Last Filed Vital Signs Vital Sign Reading Time Taken Comments Blood Pressure 149/87 09/18/2023 7:03 PM HEAD NURSE Pulse 80 09/18/2023 7:03 PM HEAD NURSE Temperature 37 C (98.6 F) 09/18/2023 7:03 PM HEAD NURSE Respiratory Rate 16 09/18/2023 7:03 PM HEAD NURSE Oxygen Saturation 100% 09/18/2023 7:03 PM HEAD NURSE Inhaled Oxygen Concentration - - Weight 88.5 kg (195 lb) 09/18/2023 2:48 PM HEAD NURSE Height 162.6 cm (5' 4 ) 06/06/2023 [...] Td or Tdap) 10/28/2022 10/28/2012 Influenza Vaccine (Season Ended) 2025 07/17/2018, 07/17/2018, 2015 Hepatitis B Screening Completed 10/02/2008 [...] CDT Narrative 05/10/2017 5:10 PM CDT Acc#: [id number] JOSE RAUL 0015 - Diag Mamm BI [...] M.D. TECHNOLOGIST: SHANE DUMONT TECHNOLOGIST MEDICAL IMAGING KENO CLERK: [facility] TRANSCRIBE DATE/TIME: May 11 2017 4:05P RADIOLOGIST: MARJORIE FRIAS M.D. READ ON: May 10 2017 3:22P ORDERING DR: NADIA BROWN M.D. THIS DOCUMENT HAS BEEN ELECTRONICALLY SIGNED BY: MARJORIE FRIAS M.D. ON: May 11 2017 4:05P Attending: DENG JACOBSON Requesting: NADIA BROWN Requesting Attending Attending ID: [id number] Requesting ID: [id number] Report To 1 ID: [id number] Report To 1 Name: DENG JACOBSON Report To 1 FAX: [phone] Report To 2 ID: Report To 2 Name: , Report To 2 FAX: -- NextGen Order #: Procedure Note Miscellaneous, Not In File / Provider, MD Keren - 05/11/2017 Acc#: [id number] JOSE RAUL 0015 - Diag Mamm BI [...] Frias M.D. TECHNOLOGIST: RICARDO COLVINOLOGIST MEDICAL IMAGING KENO CLERK: [facility] TRANSCRIBE DATE/TIME: May 11 2017 4:05P RADIOLOGIST: MARJORIE FRIAS M.D. READ ON: May 10 2017 3:22P ORDERING DR: NADIA BROWN M.D. THIS DOCUMENT HAS BEEN ELECTRONICALLY SIGNED BY: MARJORIE FRIAS M.D. ON: May 11 2017 4:05P Attending: DENG JACOBSON Requesting: NADIA BROWN Requesting Attending Attending ID: [id number] Requesting ID: [id number] Report To 1 ID: [id number] Report To 1 Name: DENG JACOBSON Report To 1 FAX: [phone] Report To 2 ID: Report To 2 Name: , Report To 2 FAX: -- NextGen Order #: Nadia Brown MD IMG MAMMO PROCEDURES E dited Result - Final from Last 3 Months or Most Recently Relevant to Health Maintenance Additional Health Concerns Infection Onset Date Last Indicated MDR gram neg/ESBL Comment:ESBL E.coli urine 11/07/17, 11/15/17, 04/16/18, 02/21/19 11/07/2017 02/21/2019 Insurance [employer] MEDICARE HUMAN CLAIMS OFFICE [facility] MEDICARE ADVANTAGE IDPA [facility] MEDICARE ADVANTAGE [employer] [facility] MEDICARE ADVANTAGE Advance Directives For more information, please contact: [phone] * Full Code (Latest Code Status on File) Date Activated Date Inactivated Comments 02/03/2023 7:52 PM 02/05/2023 5:54 PM * Full Code Date Activated Date Inactivated Comments 04/19/2018 11:35 AM 04/20/2018 8:58 PM * Full Code Date Activated Date Inactivated Comments 02/03/2018 12:56 AM 02/04/2018 7:24 PM Care Teams Portable Track Line Marker Relationship Specialty Start Date End Date Madhu Tilley MD PCP - General 07/04/20 Kit Jonas MD Surgeon General Surgery 02/04/18
--- OUTSIDE RECORDS SUMMARY | 2024-12-20 11:38 | XMS_ITS | Clinical Summary ---
Author Organization [facility] [employer] Address [address] [place] [address] Care Team Providers Care Finisher Brush Name Role Phone Madhu Tilley MD Primary Care Provider [phone] Source Comments [facility],non-owned Affiliates and Associated Physician Practices is amultiple site organization consisting of ambulatory clinics and hospital sitesin [place], [place], [place] and [place]. This disclosure is being madepursuant to the Care Everywhere program and may not contain all information available regarding this patient. Last updated 18.[facility] [employer] Allergies Active Allergy Reactions Criticality Noted Date Comments Contrast-Iodinated Agents For Ct/Other Angioedema High 10/15/2016 Povidone Iodine Swelling High 10/25/2013 Ketorolac Tromethamine Urticaria Medium 10/01/2016 Esomeprazole Urticaria Medium 01/30/2013 Ketorolac 01/30/2013 Rash if taken with PPI Medications * Be aware that medications may not be up to date on this document. Alwaysverify current medications with the patient. tiZANidine (ZANAFLEX) 4 MG tabletIndicati ons:Muscle Spasticity Take 1 (one) tablet by mouth every 6 hours as needed for Muscle Spasms Reasons: Muscle Spasticity Active acetaminophen (Tylenol) 325 MG tablet Take 2 (two) tablets by mouth every 6 hours as needed Maximum allowable Acetaminophen amount = 4 Grams (4000 mg) / 24 hours. 3 Active vitamin D, ergocalciferol , (Drisdol) 1.25 MG (25641 UT) capsule Take 1 (one) capsule by mouth every 7 days 12 capsule 3 Active omeprazole (PriLOSEC) 20 MG capsule Take 1 (one) capsule by mouth once daily 30 capsule 3 Active topiramate (Topamax) 100 MG tabletIndicati ons:Migraine Take 1 (one) tablet by mouth 2 times daily Reasons: Migraine Headache Active cetirizine (ZyrTEC) 10 MG tablet Take 1 (one) tablet by mouth once daily Active senna-docusate (Senokot-S) 8.6-50 MG tablet Take 1 (one) tablet by mouth 2 times daily as needed for Constipation 3 Active magnesium hydroxide (Milk Of Magnesia) 400 MG/5ML suspension Take 15 mL by mouth as needed for Constipation 3 Active levETIRAcetam (Keppra) 100 MG/ML oral solution Take 10 mL by mouth 2 times daily for 30 days 600 mL 3 Active ondansetron, disintegrating , (Zofran ODT) 4 MG tablet Take 1 (one) tablet by mouth every 6 hours as needed for Nausea/Vomiting Allow tablet to dissolve on the tongue 20 tablet 3 Active metoclopramide (Reglan) 10 MG tablet Take 1 (one) tablet by mouth 4 times daily - before meals & nightly 120 tablet 3 Active senna-docusate (Senokot-S) 8.6-50 MG tablet Take 1 (one) tablet by mouth 2 times daily as needed for Constipation 3 Active magnesium hydroxide (Milk Of Magnesia) 400 MG/5ML suspension Take 15 mL by mouth as needed for Constipation 3 Active scopolamine (Transderm-Sco p) 1 MG patch Apply 1 (one) patch to skin every 72 hours as needed for Other 4 patch 3 Active fluticasone propionate (Flonase) 50 MCG/ACT nasal spray [place] 2 (two) sprays into each nostril once daily as needed Active melatonin 3 MG tablet Take 1 (one) tablet by mouth at bedtime 3 Active traMADol (Ultram) 50 MG tablet Take 1 (one) tablet by mouth every 6 hours as needed 12 tablet 3 Active sucralfate (Carafate) 1 GM/10ML suspension Take 10 mL by mouth 4 times daily - before meals & nightly 1200 mL 3 Active Active Problems Patient Care Coordination No [...] UTI (urinary tract infection) 12/30/2016 01/13/2017 Immunizations Immunization Administration Dates Next Due Covid Moderna primary [...] and heating? Not hard at all 03/30/2023 [facility] - Occupational Stress [...] place to sleep or slept in a long term (including now)? No 03/30/2023 Comments No Sex and Gender Information Value Date Recorded Sex Assigned at Female Legal Sex Female 10:00 AM ENGINE REPAIRER PRODUCTION Gender Identity Female Sexual Orientation Straight Last [...] VACCINE (3 - season) 2024 07/01/2021, 05/28/2021 DEPRESSION SCREENING 08/16/2024 MEDICARE AWV CALENDAR YEAR 2024 INFLUENZA VACCINE (Season Ended) 2025 07/17/2018 SCREENING FOR DIABETES 04/03/2026 3, 04/02/2023, 04/01/2023, [...] this topic Medical Devices Implanted Type Area Process Plant Operator Device Identifier Shelf Expiration Date Model / Serial / Lot Graft Tissue Nushield 3x2cm [facility] - [id number] Implanted:Qty: 1 on 10/22/2021 by Ramone Galloway MD at [facility] N/A: Back Organogenesis 05/05/2025 NO-[id number] / [id number] / Procedures Procedure Name Priority Date/Time Associated Diagnosis Comments BASIC METABOLIC PANEL (CALCIUM TOTAL) Routine 04/03/2023 3:08 AM CDT HEPATITIS SCREEN ACUTE Routine 02/21/2021 3:19 AM CDT HIV-1 HIV-2 ANTIGEN/ANTIBODY STAT 10/13/2018 11:33 AM ENGINE REPAIRER PRODUCTION LIPID PROFILE Routine 09/22/2013 2:15 PM ENGINE REPAIRER PRODUCTION Major Depressive Disorder, Recurrent Episode, Mild from Last 3 Months or Most Recently Relevant to Health Maintenance Results * (ABNORMAL) BASIC METABOLIC PANEL (CALCIUM TOTAL) (04/03/2023 3:08 AM CDT) Pathologist [facility] Glucose 84 70 - 105 mg/dL 04/03/2023 [...] - 10.4 mg/dL 04/03/2023 4:27 AM CDT [facility] Anion Gap 8 6 - 16 mmol/L 04/03/2023 4:27 AM CDT [facility] BUN 16 7 - 26 mg/dL 04/03/2023 4:27 AM CDT [facility] Creatinine 0.69 0.57 - 1.11 mg/dL 04/03/2023 4:27 AM CDT [facility] eGFR by CKD-EPI >90 >=90 mL/min/1.7 3 m2 04/03/2023 4:27 AM CDT [facility] Blood BLOOD SPECIMEN / Unknown Venipuncture / Unknown 04/03/2023 3:08 AM CDT 04/03/2023 4:09 AM CDT us Jacqueline Jreome EXHAUST WORKER-DRIER AND PULVERIZER TENDER LAB - CHEMISTRY O RDERABLES Final Result Performing Organization Address [facility] de Phone Number [facility] [address] [place] [address] * HEPATITIS SCREEN ACUTE (02/21/2021 3:19 AM CDT) Pathologist [facility] HAV Antibody IgM Non Reactive Non Reactive 02/21/2021 4:52 AM CDT [facility] HBsAg Non Reactive Non Reactive 02/21/2021 4:52 AM CDT [facility] HBc Antibody IgM Non Reactive Non Reactive 02/21/2021 4:52 AM CDT [facility] HCV Antibody Screen Non Reactive Non Reactive 02/21/2021 4:52 AM CDT [facility] Blood BLOOD SPECIMEN / Unknown Venipuncture / Unknown 02/21/2021 3:19 AM CDT 02/21/2021 4:01 AM CDT Narrative [facility] - 02/21/2021 4:52 AM CDT Non Reactive - Antibodies to Hepatitis C virus (HCV) were not detected, result does not exclude early acute HCV infection. us Rylie Villalobos MD LAB - CHEMISTRY ORDERABLES Final Result Performing Organization Address [facility] de Phone Number [facility] [address] [place] [address] * HIV-1 HIV-2 ANTIGEN/ANTIBODY (10/13/2018 11:33 AM ENGINE REPAIRER PRODUCTION) [facility] HIV Antigen/Antibod y 1 & 2 Non-reacti ve Non-react fredrick 10/13/2018 12:39 PM ENGINE REPAIRER PRODUCTION [facility] Comment: Neither HIV-1 p24 Antigen nor HIV-1/HIV-2 Antibodies are detected. Blood BLOOD SPECIMEN / Unknown Venipuncture / Unknown 10/13/2018 11:33 AM ENGINE REPAIRER PRODUCTION 10/13/2018 11:45 AM ENGINE REPAIRER PRODUCTION us Scott Chun MD LAB - HEMATOLOGY ORDERABLES F inal Result [facility] [address] [place] [address], [facility] [phone] * LIPID PROFILE (09/22/2013 2:15 PM ENGINE REPAIRER PRODUCTION) [facility] Cholesterol 149 <200 mg/dL 09/22/2013 3:18 PM ENGINE REPAIRER PRODUCTION [facility] Triglycerides 79 <150 mg/dL 09/22/2013 3:18 PM ENGINE REPAIRER PRODUCTION [facility] HDL Cholesterol 66 >40 mg/dL 4 3:18 PM [facility] Chol HDL Ratio 2.3 1.0 - 6.0 09/22/2013 3:18 PM ENGINE REPAIRER PRODUCTION [facility] LDL Calculated 67 65 - 130 mg/dL 09/22/2013 3:18 PM ENGINE REPAIRER PRODUCTION [facility] VLDL Calculated 16 10 - 40 mg/dL 09/22/2013 3:18 PM ENGINE REPAIRER PRODUCTION [facility] Blood BLOOD SPECIMEN / Unknown Venipuncture / Unknown 09/22/2013 2:15 PM ENGINE REPAIRER PRODUCTION 09/22/2013 2:29 PM ENGINE REPAIRER PRODUCTION Narrative [facility] - 09/22/2013 3:18 PM ENGINE REPAIRER PRODUCTION Lipid Profile Comment: CHOLESTEROL LEVEL..................CLINICAL INTERPRETATION LESS [...] AVERAGE.................. 9.5 ...................... 7.0 3X AVERAGE...................>23........................>11 Angelina Iesha ZAMORA LAB - CHEMISTRY ORDERABLES Final Result [facility] [address] from Last 3 Months or Most Recently Relevant to Health Maintenance Additional Health Concerns Infection Onset Date Last Indicated ESBL Hx Comment:urine 11/08/2018 03/16/2023 [place] [address] [facility]NA[facility]ED MEDICARE ADV MEDICAID - [place] * Guarantor: PRASHANT FARLEY Account Type Relation to Patient Date of Phone Billing Address Personal/Family 1970 [address] [place] [address] Advance Directives * Full Code (Latest Code [...] 12:36 PM 09/17/2022 2:57 PM Care Teams Finisher Brush Relationship Specialty Start Date End Date Madhu Tilley MD [address] [place] [address] PCP - General Internal Medicine 03/17/23
[2024-12-20 11:56] LABS: BEDSIDEPREGUCG Negative (Negative)
[2024-12-20 11:57] LABS: Add Urine Microscopic? YES; Appearance Urine Cloudy (Clear); Bacteria Urine None Seen /hpf; Bilirubin Urine Negative (Negative); Blood Urine 3+ (Negative); Color Urine Dark Yellow (Yellow); Glucose Urine UA Negative (Negative); Ketones Urine Trace mg/dL (Negative); Leukocyte Esterase Ur Trace LEU/UL (Negative); Nitrate Urine Negative (Negative); Non Pathogenic Casts 0-2; Protein Urine Trace mg/dL (Negative); RBC Urine >100 /hpf (0-2); Specific Grav Ur 1.041 (1.001-1.035); Squamous Epithelial Cell Urine Occasional /hpf (Few); WBC Urine 0-5 /hpf (0-3)
[2024-12-20 11:59] LABS: Alanine Aminotransferase 37 U/L (6-35); Albumin Level 4.4 g/dL (3.5-5.1); Alkaline Phosphatase 89 U/L (38-126); Anion Gap 9 mmol/L (4-12); Aspartate Amino Transferase 33 U/L (14-36); Bilirubin,Total 0.7 mg/dL (0.2-1.3); Blood Urea Nitrogen 13 mg/dL (7-17); Calcium 9.4 mg/dL (8.4-10.2); Carbon Dioxide 21 mmol/L (22-30); Chloride 111 mmol/L (98-107); Estimated CRCL calculation 80 ml/min; Estimated Glomerular Filt Rate > 60; Glucose 78 mg/dL (65-110); Lipase 100 U/L (23-300); Potassium 4.4 mmol/L (3.4-5.0); Sodium 141 mmol/L (137-145)
--- NOTE | 2024-12-20 12:18 | ED_ITS ---
HPI - Abdominal Pain General Chief Complaint: Abdominal Pain Stated Complaint: I think I have a bowel obstruction Time Seen by Provider: 12/20/24 11:53 Source: patient Mode of arrival: ambulatory Limitations: no limitations History of Present Illness HPI narrative: This is a 54 year old female that presents to the ER for abdominal pain. Ongoing over the last 5 days. Reports long standing history of bowel obstructions. Reports history of gastric bypass surgery which was reversed 2 years ago because of her frequent obstructions. She has been fine since and not had any problems until the last couple of days. Reports abdominal pain, nausea, vomiting. She has not had a BM since Wednesday. Denies fevers. Related Data Home Medications ?Medication ?Instructions ?Recorded ?Confirmed ?Last Taken ?Type levetiracetam 1,000 mg tablet 1,000 mg PO Q12H 11/21/20 07/12/24 07/11/24 09:00 History tizanidine 4 mg capsule 8 mg PO QHS PRN muscle spasms 11/21/20 07/12/24 07/12/22 History topiramate 100 mg tablet 100 mg PO BID 07/14/22 07/12/24 Unknown History phentermine 15 mg capsule 15 mg PO DAILY 06/05/24 07/12/24 07/11/24 09:00 History Allergies Allergy/AdvReac Type Severity Reaction Status Date / Time esomeprazole Allergy Unknown Hives Verified 11/15/24 10:18 iodine Allergy Unknown Swelling Verified 11/15/24 10:18 of Lip/Tongue/Throat ketorolac (From Toradol) Allergy Hives Verified 11/15/24 10:18 Contrast Media Allergy Unknown Swelling Uncoded 11/15/24 10:18 of Lip/Tongue/Throat Review of Systems 2 Review of Systems: CONSTITUTIONAL: Denies fever GASTROINTESTINAL: Reports abdominal pain, nausea, vomiting All systems reviewed & are unremarkable except as noted in HPI and below PMFSH Past Medical History Medical History Bulging disc L5-S1 Finger fracture DDD (degenerative disc disease) Arthritis Depression Anxiety Epilepsy Migraine Abnormal uterine bleeding UTI (urinary tract infection) Gallbladder disease Kidney stone Surgical History Surgical History History of ventral hernia repair History of back surgery Status post right foot surgery x2 H/O tubal ligation H/O: hysterectomy History of x4 History of urethral stent Rt H/O lithotripsy H/O resection of small bowel History of gastric bypass History of cholecystectomy Hx of tonsillectomy Family History Family History Mother Hypertension Father Family history of chronic obstructive pulmonary disease, Onset Age: 71 Family history of diabetes mellitus in first degree relative Patient's father is Social History Social History Social History: Surrogate medical decision maker: Jonathanmelissa Golden, spouse. Code status: full code. Smoking status: Never smoker Alcohol intake: never Substance use: never Substance use type: marijuana Do You Feel Safe in your Home?: Yes Lack of Transportation: No Lack of Food: Never True Current Housing: I Have Housing Concerned About Future Housing: No Difficulty Paying Gas/Electric Bills: No Difficulty Paying for Meds: No Currently Unemployed: No Education: Trade/Vocational Certificate Difficulty w/ Childcare or Family Care: No Additional living arrangements comments: The patient lives with her and 9-year-old son in [place]. Additional occupation/education comments: Disabled. Spiritual care concerns: No Exam 2 Narrative: GENERAL: Well-appearing, well-nourished, and in no acute distress. HEAD: Normocephalic, atraumatic. EYES: EOMI. CHEST: Clear to auscultation. No respiratory distress. No wheezes rales or rhonchi HEART: Regular rate and rhythm. No murmur heard. Normal peripheral pulses. ABDOMEN: Soft, nondistended, normal active bowel sounds. Tender to palpation throughout the abdomen, without guarding EXTREMITIES: Normal range of motion. No edema. SKIN: Warm, dry, no rash. NEURO: No focal deficits. Alert and oriented x3. PSYCH: Normal mood and affect Course Course Emergency Course: Patient updated on workup and agrees with plan of care Vital Signs Vital signs: Vital Signs Temperature 97.6 F 12/20/24 10:56 Pulse Rate 104 H 12/20/24 10:56 Respiratory Rate 17 12/20/24 10:56 Blood Pressure 138/93 H 12/20/24 10:56 Pulse Oximetry 99 12/20/24 10:56 Oxygen Delivery Room Air 12/20/24 10:56 Temperature 97.6 F 12/20/24 10:56 Pulse Rate 104 H 12/20/24 10:56 Respiratory Rate 17 12/20/24 10:56 Blood Pressure 138/93 H 12/20/24 10:56 Pulse Oximetry 99 12/20/24 10:56 Oxygen Delivery Room Air 12/20/24 10:56 MDM - Abdominal Pain MDM Narrative Medical decision making narrative: patient presents to the emergency department for abdominal pain, nausea and vomiting. She is afebrile and nontoxic appearing. Cbc without leukocytosis. Metabolic panel without concerning findings. Urine with red blood cells, no evidence of infection. CT abdomen and pelvis shows a stone in the right upper ureter. Patient updated on workup and agrees with plan of care. Will be started on Flomax and given pain medication as needed. She is to follow up with Urology. She was given warnings to return the ER Differential Diagnosis Differential diagnosis: Likely calculus of kidney, constipation, diverticulitis, gastroenteritis and small bowel obstruction Lab Data Attestation: I reviewed the patient's lab results. 12/20/24 13:12 12/20/24 11:39 Labs: Lab Results 12/20/24 12/20/24 12/20/24 Range/Units 11:39 11:55 13:12 WBC 6.9 (4.5-10.0) K/mm3 RBC 5.28 (4.2-5.4) M/mm3 Hgb 13.8 (12.0-15.0) g/dL Hct 44.9 (37.0-47.0) % MCV 85.0 (80-100) fl MCH 26.1 (26-34) pg MCHC 30.7 L (32-36) g/dl RDW 16.0 H (11.5-14.5) % Plt Count 281 (150-375) k/mm3 MPV 9.5 (7.4-10.4) fl Immature Gran % (Auto) 0.3 (0-0.5) % Neut % (Auto) 60.8 (45.5-73.1) % Lymph % (Auto) 27.4 (18.3-44.2) % Ray % (Auto) 9.2 H (2.6-8.5) % Eos % (Auto) 1.6 (0-4.4) % Baso % (Auto) 0.7 (0.2-1.2) % Lymph # (Auto) 1.90 (0.9-3.2) K/mm3 Ray # (Auto) 0.6 (0.1-0.6) K/mm3 Eos # (Auto) 0.1 (0-0.3) K/mm3 Baso # (Auto) 0.1 (0.0-0.1) K/mm3 Abs Immat Gran (auto) 0.02 (0.00-0.031) K/mm3 Absolute Neuts (auto) 4.2 (1.3-6.7) K/mm3 Absolute Nucleated RBC 0.000 (0.0-0.012) K/mm3 Nucleated RBC % 0.0 (0.0-0.2) % Sodium 141 (137-145) mmol/L Potassium 4.4 (3.4-5.0) mmol/L Chloride 111 H (98-107) mmol/L Carbon Dioxide 21 L (22-30) mmol/L Anion Gap 9 (4-12) mmol/L BUN 13 (7-17) mg/dL Creatinine 0.71 (0.7-1.0) mg/dL Estim Creat Clear Calc 80 ml/min Estimated GFR > 60 (59 - ) Glucose 78 (65-110) mg/dL Calcium 9.4 (8.4-10.2) mg/dL Total Bilirubin 0.7 (0.2-1.3) mg/dL AST 33 (14-36) U/L ALT 37 H (6-35) U/L Alkaline Phosphatase 89 (38-126) U/L Total Protein 8.0 (6.3-8.2) g/dL Albumin 4.4 (3.5-5.1) g/dL Lipase 100 (23-300) U/L Urine Color Dark yellow (Yellow) Urine Appearance Cloudy H (Clear) Urine pH 5.0 (5.0-9.0) Ur Specific [place] 1.041 H (1.001-1.035) Urine Protein Trace (Negative) mg/dL Urine Glucose (UA) Negative (Negative) mg/dL Urine Ketones Trace H (Negative) mg/dL Ur Blood (Man) 3+ H (Negative) Urine Nitrate Negative (Negative) Urine Bilirubin Negative (Negative) Urine Urobilinogen 1.0 (<2.0) mg/dL Leukocyte Esterase Rfl Trace H (Negative) PATRICK/UL Urine RBC >100 H (0-2) /hpf Urine WBC 0-5 (0-3) /hpf Ur Squamous Epith Cells Occasional (Few) /hpf Urine Bacteria None seen /hpf Urine Casts 0-2 POC Urine HCG, Qual Negative (Negative) Imaging Data Radiologist's impression: ITS Impressions Abdomen/Pelvis CT 12/20/24 12:36 IMPRESSION: 1. Stone in the right upper ureter. 2. Bilateral kidney stones. 3. No evidence of appendicitis, diverticulitis or intestinal obstruction. 2020. Critical Care Time Critical Care Time Critical Care Time: No Discharge Plan Discharge Clinical Impression: Kidney stone Patient Disposition: Home Condition: Stable Instructions: Kidney Stones (ED), How to Strain Your Urine (ED) Additional Instructions: Return to the ER if you experience fever, abdominal pain with nausea and vomiting, you are unable to keep down liquids or solids, pain or burning with urination, blood in the urine or any other symptoms that are concerning to you Remain well hydrated. [id number] pain medication as needed. Prescribed pain medication as needed. Take Flomax as prescribed. Strain your urine. Pepcid as needed Follow up with Urology Patient Language: Romansh Prescriptions: New tamsulosin 0.4 mg capsule 0.4 mg PO DAILY 7 Days Qty: 7 0RF hydrocodone-acetaminophen 5-325 mg tablet 1 tablet PO Q6H PRN (Reason: pain) Qty: 20 0RF No Action tizanidine 4 mg capsule 8 mg PO QHS PRN (Reason: muscle spasms) levetiracetam 1,000 mg tablet 1,000 mg PO Q12H phentermine 15 mg capsule 15 mg PO DAILY Eliquis DVT-PE Treat 30D Start 5 mg (74 tabs) tablets,dose pack See Rx Instructions .ROUTE .COMPLEX Qty: 74 0RF Rx Instructions: orally per package directions hydrocodone-acetaminophen 5-325 mg tablet 1 tablet PO Q6H PRN (Reason: pain) Qty: 5 0RF ondansetron 4 mg tablet,disintegrating 4 mg PO Q8H PRN (Reason: nausea and vomiting) Qty: 15 0RF amoxicillin-pot clavulanate 875-125 mg tablet 1 tablet PO Q12H 7 Days Qty: 14 0RF dicyclomine 20 mg tablet 20 mg PO TID PRN (Reason: Abdominal Discomfort) Qty: 15 0RF topiramate 100 mg tablet 100 mg PO BID Follow-up/Referrals: Madhu Tilley MD [Primary Care Provider] - Honorio Veloz MD [Physician] -
[2024-12-20] MEDS: SODIUM CHLORIDE 0.9% IV 1,000 ML 999 ML IV CONT (12:23)
[2024-12-20] MEDS: ONDANSETRON INJ 4 MG/2 ML VIAL IV PUSH (12:23)
[2024-12-20] MEDS: FAMOTIDINE 20 MG/2 ML VIAL IV PUSH (12:23)
--- OUTSIDE RECORDS SUMMARY | 2024-12-20 12:32 | XMS_ITS | Clinical Summary ---
Author Organization [facility] Address [address] [place] [address] Care Team Providers Care Plaster Molder Name Role Phone Kit Jonas MD Unavailable [phone] Madhu Tilley MD Primary Care Provider [phone] Allergies Active Allergy Reactions Criticality Noted Date [...] any clubs o r organizations such as evangelical groups, unions, fraternal or athletic groups, or [...] place to sleep or slept in a fdc (including now)? No 02/04/2023 Housing Stability Vital [...] on file Legal Sex Female 2:16 AM OUTREACH CONSULTANT Gender Identity Not on file Sexual Orientation Not on file Obstetrics History Last Filed Vital Signs Vital Sign Reading Time Taken Comments Blood Pressure 149/87 09/18/2023 7:03 PM OUTREACH CONSULTANT Pulse 80 09/18/2023 7:03 PM OUTREACH CONSULTANT Temperature 37 C (98.6 F) 09/18/2023 7:03 PM OUTREACH CONSULTANT Respiratory Rate 16 09/18/2023 7:03 PM OUTREACH CONSULTANT Oxygen Saturation 100% 09/18/2023 7:03 PM OUTREACH CONSULTANT Inhaled Oxygen Concentration - - Weight 88.5 kg (195 lb) 09/18/2023 2:48 PM OUTREACH CONSULTANT Height 162.6 cm (5' 4 ) 06/06/2023 [...] CDT Narrative 05/10/2017 5:10 PM CDT Acc#: [id number] JOSE RAUL [id number] - Diag Mamm BI [...] M.D. TECHNOLOGIST: SHANE DUMONT TECHNOLOGIST MEDICAL IMAGING MOTOR AND GENERATOR BRUSH CUTTER: [facility] TRANSCRIBE DATE/TIME: May 11 2017 4:05P RADIOLOGIST: MARJORIE FRIAS M.D. READ ON: May 10 2017 3:22P ORDERING DR: NADIA BROWN M.D. THIS DOCUMENT HAS BEEN ELECTRONICALLY SIGNED BY: MARJORIE FRIAS M.D. ON: May 11 2017 4:05P Attending: DENG JACOBSON Requesting: NADIA BROWN Requesting Attending Attending ID: [id number] Requesting ID: [id number] Report To 1 ID: [id number] Report To 1 Name: DENG JACOBSON Report To 1 FAX: [phone] Report To 2 ID: Report To 2 Name: , Report To 2 FAX: -- NextGen Order #: Procedure Note Miscellaneous, Not In File / Provider, MD Keren - 05/11/2017 Acc#: [id number] JOSE RAUL 0015 - Diag Mamm BI [...] Frias M.D. TECHNOLOGIST: RICARDO COLVINOLOGIST MEDICAL IMAGING MOTOR AND GENERATOR BRUSH CUTTER: [facility] TRANSCRIBE DATE/TIME: May 11 2017 4:05P RADIOLOGIST: MARJORIE FRIAS M.D. READ ON: May 10 2017 3:22P ORDERING DR: NADIA BROWN M.D. THIS DOCUMENT HAS BEEN ELECTRONICALLY SIGNED BY: MARJORIE FRIAS M.D. ON: May 11 2017 4:05P Attending: DENG JACOBSON Requesting: NADIA BROWN Requesting Attending Attending ID: [id number] Requesting ID: [id number] Report To 1 ID: [id number] Report To 1 Name: DENG JACOBSON Report To 1 FAX: [phone] Report To 2 ID: Report To 2 Name: , Report To 2 FAX: -- NextGen Order #: Nadia Brown MD IMG MAMMO PROCEDURES E dited Result - Final from Last 3 Months or Most Recently Relevant to Health Maintenance Additional Health Concerns Infection Onset Date Last Indicated MDR gram neg/ESBL Comment:ESBL E.coli urine 11/07/17, 11/15/17, 04/16/18, 02/21/19 11/07/2017 02/21/2019 Insurance [employer] MEDICARE HUMAN CLAIMS OFFICE [facility] MEDICARE ADVANTAGE IDPA [facility] MEDICARE ADVANTAGE IDPA [facility] MEDICARE ADVANTAGE Advance Directives For more information, please contact: [phone] * Full Code (Latest Code Status on File) Date Activated Date Inactivated Comments 02/03/2023 7:52 PM 02/05/2023 5:54 PM * Full Code Date Activated Date Inactivated Comments 04/19/2018 11:35 AM 04/20/2018 8:58 PM * Full Code Date Activated Date Inactivated Comments 02/03/2018 12:56 AM 02/04/2018 7:24 PM Care Teams Plaster Molder Relationship Specialty Start Date End Date Madhu Tilley MD PCP - General 07/04/20 Kit Jonas MD Surgeon General Surgery 02/04/18
--- OUTSIDE RECORDS SUMMARY | 2024-12-20 12:32 | XMS_ITS | Clinical Summary ---
Author Organization [facility] Address [address] [place] [address] Care Team Providers Care Asbestos Hazard Abatement Worker Name Role Phone Unavailable Primary Care Provider [...] Most Recently Relevant to Health Maintenance Insurance [employer] [address] [place] [address]
--- OUTSIDE RECORDS SUMMARY | 2024-12-20 12:32 | XMS_ITS | Referral Summary ---
Author Organization [facility] Address [address] [place] [address] Care Team Providers Care Beam Builder Helper Name Role Phone Kit Jonas MD Unavailable [phone] Madhu Tilley MD Primary Care Provider [phone] Allergies Active Allergy Reactions Criticality Noted Date [...] often do you attend chur ch or sabianist services? Never 02/04/2023 Do you belong to any clubs o r organizations such as yazidism groups, unions, fraternal or athletic groups, or [...] place to sleep or slept in a care home (including now)? No 02/04/2023 Housing Stability Vital [...] on file Legal Sex Female 2:16 AM SUPERVISOR CORDUROY CUTTING Gender Identity Not on file Sexual Orientation Not on file Last Filed Vital Signs Vital Sign Reading Time Taken Comments Blood Pressure 149/87 09/18/2023 7:03 PM SUPERVISOR CORDUROY CUTTING Pulse 80 09/18/2023 7:03 PM SUPERVISOR CORDUROY CUTTING Temperature 37 C (98.6 F) 09/18/2023 7:03 PM SUPERVISOR CORDUROY CUTTING Respiratory Rate 16 09/18/2023 7:03 PM SUPERVISOR CORDUROY CUTTING Oxygen Saturation 100% 09/18/2023 7:03 PM SUPERVISOR CORDUROY CUTTING Inhaled Oxygen Concentration - - Weight 88.5 kg (195 lb) 09/18/2023 2:48 PM SUPERVISOR CORDUROY CUTTING Height 162.6 cm (5' 4 ) 06/06/2023 [...] CDT Narrative 05/10/2017 5:10 PM CDT Acc#: [id number] JOSE RAUL 0015 - Diag Mamm BI [...] M.D. TECHNOLOGIST: SHANE DUMONT TECHNOLOGIST MEDICAL IMAGING CAUSE ANALYST: [facility] TRANSCRIBE DATE/TIME: May 11 2017 4:05P RADIOLOGIST: MARJORIE FRIAS M.D. READ ON: May 10 2017 3:22P ORDERING DR: NADIA BROWN M.D. THIS DOCUMENT HAS BEEN ELECTRONICALLY SIGNED BY: MARJORIE FRIAS M.D. ON: May 11 2017 4:05P Attending: DENG JACOBSON Requesting: NADIA BROWN Requesting Attending Attending ID: [id number] Requesting ID: [id number] Report To 1 ID: [id number] Report To 1 Name: DENG JACOBSON Report To 1 FAX: [phone] Report To 2 ID: Report To 2 Name: , Report To 2 FAX: -- NextGen Order #: Procedure Note Miscellaneous, Not In File / Provider, MD Keren - 05/11/2017 Acc#: [id number] JOSE RAUL 0015 - Diag Mamm BI [...] M.D. TECHNOLOGIST: SHANE DUMONT TECHNOLOGIST MEDICAL IMAGING CAUSE ANALYST: [facility]URIA TRANSCRIBE DATE/TIME: May 11 2017 4:05P RADIOLOGIST: MARJORIE FRIAS M.D. READ ON: May 10 2017 3:22P ORDERING DR: NADIA BROWN M.D. THIS DOCUMENT HAS BEEN ELECTRONICALLY SIGNED BY: MARJORIE FRIAS M.D. ON: May 11 2017 4:05P Attending: DENG JACOBSON Requesting: NADIA BROWN Requesting Attending Attending ID: [id number] Requesting ID: [id number] Report To 1 ID: [id number] Report To 1 Name: DENG JACOBSON Report To 1 FAX: [phone] Report To 2 ID: Report To 2 Name: , Report To 2 FAX: -- NextGen Order #: Nadia Brown MD IMG MAMMO PROCEDURES E dited Result - Final from Last 3 Months or Most Recently Relevant to Health Maintenance Additional Health Concerns Infection Onset Date Last Indicated MDR gram neg/ESBL Comment:ESBL E.coli urine 11/07/17, 11/15/17, 04/16/18, 02/21/19 11/07/2017 02/21/2019 Insurance [place]PA MEDICARE [facility] CLAIMS OFFICE [facility] MEDICARE [place] [address] [place] [address] [facility] MEDICARE ADVANTAGE IDPA [facility] MEDICARE ADVANTAGE [facility] MEDICARE Address: [address] [address] [place] [address] Advance Directives For more information, please contact: [phone] * Full Code (Latest Code Status on File) Date Activated Date Inactivated Comments 02/03/2023 7:52 PM 02/05/2023 5:54 PM * Full Code Date Activated Date Inactivated Comments 04/19/2018 11:35 AM 04/20/2018 8:58 PM * Full Code Date Activated Date Inactivated Comments 02/03/2018 12:56 AM 02/04/2018 7:24 PM Care Teams Beam Builder Helper Relationship Specialty Start Date End Date Madhu Tilley MD PCP - General 07/04/20 Kit Jonas MD Surgeon General Surgery 02/04/18
--- OUTSIDE RECORDS SUMMARY | 2024-12-20 12:32 | XMS_ITS | Clinical Summary ---
Author Organization [facility] Address [address] [place] [address] Phone Care Team Providers Care Outside Solar Sales Consultant Name Role Phone Madhu Tilley MD Primary Care Provider [phone] Allergies Active Allergy Reactions Criticality Noted Date [...] Comments Blood Pressure 177/89 08/31/2023 5:00 PM CUFF SETTER LOCKSTITCH Pulse 79 08/31/2023 5:00 PM CUFF SETTER LOCKSTITCH Temperature 36.9 C (98.4 F) 08/31/2023 3:04 PM CUFF SETTER LOCKSTITCH Respiratory Rate 17 08/31/2023 3:30 PM CUFF SETTER LOCKSTITCH Oxygen Saturation 99% 08/31/2023 5:00 PM CUFF SETTER LOCKSTITCH Inhaled Oxygen Concentration - - Weight 90.7 kg (200 lb) 08/31/2023 3:15 PM CUFF SETTER LOCKSTITCH Height 162.6 cm (5' 4 ) 08/31/2023 3:04 PM CUFF SETTER LOCKSTITCH Body Mass Index 34.33 08/31/2023 3:04 PM CUFF SETTER LOCKSTITCH Plan of Treatment Health Maintenance Due Date [...] to complete this topic Insurance [place] MEDICARE C [facility] Care Teams Outside Solar Sales Consultant Relationship Specialty Start Date End Date Madhu Tilley MD [address] [place], [place] [id number] PCP - General Internal Medicine 08/31/23
--- OUTSIDE RECORDS SUMMARY | 2024-12-20 12:32 | XMS_ITS | Clinical Summary ---
Author Organization [facility] Address [address] [place] [address] Care Team Providers Care It Trainee Name Role Phone Madhu Tilley MD Primary Care Provider [phone] Source Comments [facility],non-owned Affiliates and Associated Physician Practices is amultiple site organization consisting of ambulatory clinics and hospital sitesin [place], [place], [place] and [place]. This disclosure is being madepursuant to the Care Everywhere program and may not contain all information available regarding this patient. Last updated 18.[facility] Allergies Active Allergy Reactions Criticality Noted Date [...] vitamin D, ergocalciferol , (Drisdol) 1.25 MG (60654 UT) capsule Take 1 (one) capsule by [...] fluticasone propionate (Flonase) 50 MCG/ACT nasal spray [place] 2 (two) sprays into each nostril once [...] and heating? Not hard at all 03/30/2023 [facility] - [...] in a prison (including now)? No 03/30/2023 Comments No Sex and Gender Information Value Date Recorded Sex Assigned at Female Legal Sex Female 10:00 AM RIDING TEACHER Gender Identity Female Sexual Orientation Straight Last [...] this topic Medical Devices Implanted Type Area Billing Supervisor Device Identifier Shelf Expiration Date Model / Serial / Lot Graft Tissue Nushield 3x2cm [facility] - [id number] Implanted:Qty: 1 on 10/22/2021 by Ramone Galloway MD at [facility] N/A: Back [employer] 05/05/2025 NO-[id number] / [id number] / Procedures Procedure Name Priority Date/Time Associated Diagnosis Comments BASIC METABOLIC PANEL (CALCIUM TOTAL) Routine 04/03/2023 3:08 AM CDT HEPATITIS SCREEN ACUTE Routine 02/21/2021 3:19 AM CDT HIV-1 HIV-2 ANTIGEN/ANTIBODY STAT 10/13/2018 11:33 AM RIDING TEACHER LIPID PROFILE Routine 09/22/2013 2:15 PM RIDING TEACHER Major Depressive Disorder, Recurrent Episode, Mild from [...] CDT 04/03/2023 4:09 AM CDT us Jacqueline Jerome DEMAND PLANNER-CARDIOPULMONARY TECHNICIAN LAB - CHEMISTRY O RDERABLES Final Result Performing Organization Address [facility] de Phone Number [facility] [address] [place] [address] * HEPATITIS SCREEN ACUTE (02/21/2021 [...] CHEMISTRY ORDERABLES Final Result Performing Organization Address [facility] de Phone Number [facility] [address] [place] [address] * HIV-1 HIV-2 ANTIGEN/ANTIBODY (10/13/2018 11:33 AM RIDING TEACHER) [facility] HIV Antigen/Antibod y 1 & 2 Non-reacti ve Non-react fredrick 10/13/2018 12:39 PM RIDING TEACHER [facility] Comment: Neither HIV-1 p24 Antigen nor HIV-1/HIV-2 Antibodies are detected. Blood BLOOD SPECIMEN / Unknown Venipuncture / Unknown 10/13/2018 11:33 AM RIDING TEACHER 10/13/2018 11:45 AM RIDING TEACHER us Scott Chun MD LAB - HEMATOLOGY ORDERABLES F inal Result [facility] [address] [place] [address], [facility] [phone] * LIPID PROFILE (09/22/2013 2:15 PM RIDING TEACHER) [facility] Cholesterol 149 <200 mg/dL 09/22/2013 3:18 PM RIDING TEACHER [facility] Triglycerides 79 <150 mg/dL 09/22/2013 3:18 PM RIDING TEACHER [facility] HDL Cholesterol 66 >40 mg/dL 4 3:18 PM [facility] Chol HDL Ratio 2.3 1.0 - 6.0 09/22/2013 3:18 PM RIDING TEACHER [facility] LDL Calculated 67 65 - 130 mg/dL 09/22/2013 3:18 PM RIDING TEACHER [facility] VLDL Calculated 16 10 - 40 mg/dL 09/22/2013 3:18 PM RIDING TEACHER [facility] Blood BLOOD SPECIMEN / Unknown Venipuncture / Unknown 09/22/2013 2:15 PM RIDING TEACHER 09/22/2013 2:29 PM RIDING TEACHER Narrative [facility] - 09/22/2013 3:18 PM RIDING TEACHER Lipid Profile Comment: CHOLESTEROL LEVEL..................CLINICAL INTERPRETATION LESS [...] [facility] - CHEMISTRY ORDERABLES Final Result [facility] [address] from Last 3 Months or Most Recently Relevant to Health Maintenance Additional Health Concerns Infection Onset Date Last Indicated ESBL Hx Comment:urine 11/08/2018 03/16/2023 [place] [address] [facility] MANAGED MEDICARE ADV MEDICAID - [place] * Guarantor: PRASHANT FARLEY Account Type Relation to Patient Date of Phone Billing Address Personal/Family 1970 [address] [place] [address] Advance Directives * Full Code (Latest Code [...] 12:36 PM 09/17/2022 2:57 PM Care Teams It Trainee Relationship Specialty Start Date End Date Madhu Tilley MD [address] [place] [address] PCP - General Internal Medicine 03/17/23
--- OUTSIDE RECORDS SUMMARY | 2024-12-20 12:32 | XMS_ITS | Clinical Summary ---
Author Organization [facility] Address [address] [place] [address] Care Team Providers Care Staple Side Laster Name Role Phone Unavailable Primary Care Provider [...]
--- OUTSIDE RECORDS SUMMARY | 2024-12-20 12:32 | XMS_ITS | Clinical Summary ---
Author Organization [facility] Address [address] [place] [address] Phone Care Team Providers Care Mgmt Analyst Name Role Phone Madhu Tilley MD Primary Care Provider [phone] Allergies Active Allergy Reactions Criticality Noted Date [...] Comments Blood Pressure 113/80 09/16/2019 4:37 PM PIE DOUGH ROLLER Pulse 79 09/16/2019 4:37 PM PIE DOUGH ROLLER Temperature 36.4 C (97.6 F) 09/16/2019 1:11 PM PIE DOUGH ROLLER Respiratory Rate 18 09/16/2019 4:37 PM PIE DOUGH ROLLER Oxygen Saturation 95% 09/16/2019 4:37 PM PIE DOUGH ROLLER Inhaled Oxygen Concentration - - Weight 79.4 kg (175 lb) 09/16/2019 1:11 PM PIE DOUGH ROLLER Height 162.6 cm (5' 4 ) 09/16/2019 1:11 PM PIE DOUGH ROLLER Body Mass Index 30.04 09/16/2019 1:11 PM PIE DOUGH ROLLER Plan of Treatment Health Maintenance Due Date [...] Advance Directives For more information, please contact: [phone] * Full Code (Latest Code Status on File) Date Activated Date Inactivated Comments 07/16/2018 9:55 PM 07/19/2018 2:03 PM Care Teams Mgmt Analyst Relationship Specialty Start Date End Date Madhu Tilley MD [address] [facility] [address] [place] [address] PCP - General Internal Medicine 08/27/19
--- OUTSIDE RECORDS SUMMARY | 2024-12-20 12:32 | XMS_ITS | Encounter Summary ---
Author Organization [facility] Address [address] [place] [address] Care Team Providers Care Deckhand Oyster Dredge Name Role Phone Unavailable Primary Care Provider Unavailabl e Prior Encounters Date Type Department Care Team Description 03/31/2022 Travel 03/31/2022 11:15 AM CDT Office Visit [facility] [address] [place] [address] Emperatriz Zuñiga DDS Dental caries unspecified (Primary Dx) 03/26/2022 Travel 03/26/2022 1:00 PM CDT Office Visit [facility] [address] [place] [address] Rustam Taylor DMD Last Filed [...] Analgesia: Fentanyl Intra-procedure monitoring: Blood pressure monitoring, junior web designer, continuous capnometry, continuous pulse oximetry, frequent LOC [...] is stable for discharge or admission: yes Glassware Maker's Name:: Jonathan Emperatriz Zuñiga DDS ANESTHESIA ORDERABLES Final Re sult Visit Diagnoses Diagnosis Start Date Dental caries unspecified 03/31/2022 Insurance O[employer]ity PPO [employer] Oximity PPO [address] COMMERCIAL
[2024-12-20] MEDS: MORPHINE SULFATE (*CRX) 4 MG/ML INJ IV PUSH (13:00)
[2024-12-20 13:20] LABS: Basophils Absolute Auto 0.1 K/mm3 (0.0-0.1); Basophils Percent Auto 0.7 % (0.2-1.2); Eosinophils Absolute Auto 0.1 K/mm3 (0-0.3); Eosinophils Percent Auto 1.6 % (0-4.4); Hematocrit 44.9 % (37.0-47.0); Hemoglobin 13.8 g/dL (12.0-15.0); Immature Granulocyte Absolute 0.02 K/mm3 (0.00-0.031); Immature Granulocyte Percent A 0.3 % (0-0.5); Lymphocytes Percent Auto 27.4 % (18.3-44.2); Mean Corpuscular HGB Conc 30.7 g/dl (32-36); Mean Corpuscular Hemoglobin 26.1 pg (26-34); Mean Platelet Volume 9.5 fl (7.4-10.4); Monocytes Absolute Auto 0.6 K/mm3 (0.1-0.6); Monocytes Percent Auto 9.2 % (2.6-8.5); Neutrophils Absolute Auto 4.2 K/mm3 (1.3-6.7); Neutrophils Percent Auto 60.8 % (45.5-73.1); Platelet Count Result 281 k/mm3 (150-375); Red Blood Count 5.28 M/mm3 (4.2-5.4); White Blood Count 6.9 K/mm3 (4.5-10.0)
== END 2024-12-20 14:09 | disposition home or self-care (01) ==
PROVIDERS: Emergency Provider Physician Assistant; PCP Internal Medicine
DX: N20.0 Calculus of kidney (principal); G40.909 Epilepsy, unspecified, not intractable, without status epilepticus; M19.90 Unspecified osteoarthritis, unspecified site; F41.9 Anxiety disorder, unspecified; F32.A Depression, unspecified; Z87.440 Personal history of urinary (tract) infections; Z87.442 Personal history of urinary calculi; Z90.710 Acquired absence of both cervix and uterus; Z90.49 Acquired absence of other specified parts of digestive tract; Z79.01 Long term (current) use of anticoagulants; Z79.899 Other long term (current) drug therapy
CPT/HCPCS: 36415; 74176; 80053; 81001; 81025; 83690; 85025; 96361; 96374; 96375; 99284; J2270; J2405; J7030

== ENCOUNTER 2024-12-22 19:24 | Inpatient (IN) | payer MEDICARE, MEDICAID, SELFPAY ==
[2024-12-22] VITALS (12 sets, daily range): BP systolic 127–177; BP diastolic 91–120; PULSE 75–100; RESP 16–18; TEMP 36.7; O2SAT 98–100
--- NOTE | ~2024-12-22 | XR_ITS ---
XR abdomen gastric tube insert Ordering provider: Hilary Angelo APRN History: . ng tube insertion . Comparison: None. FINDINGS/impression: Nasogastric tube is seen with the tip in the fundus of the stomach. 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
--- NOTE | ~2024-12-22 | CT_ITS ---
The attending CLINICAL INDICATION: Lower abdominal pain and flank pain COMPARISON: 12/20/2024, 11/15/2024 and dating back to 06/05/2024. TECHNIQUE: Multiple contiguous axial images of the abdomen and pelvis were performed without the admi nistration of intravenous contrast The dose-length product (DLP) was 953.28 mGy-cm. Automated exposure control and iterative reconstruction technique were employed. FINDINGS/OBSERVATIONS: Visualized lower thorax: Pathologist The bilateral lung bases are clear. The heart is of normal size, without pericardial effusion. Small hiatal hernia is present. Liver: The liver demonstrates homogeneous attenuation and is borderline enlarged measuring 19 cm in longitud inal dimension. Gallbladder and biliary system: The gallbladder is surgically absent. Pancreas: Limited evaluation of the pancreas secondary to the lack of intravenous contrast. Spleen: The spleen demonstrates homogeneous attenuation and is not enlarged measuring cm in longitudinal dime nsion. Kidneys: Redemonstration of a right ureteral calculus measuring 2 mm with only mild right-sided hydronephrosis . Antegrade progression of the calculus is identified when compared with previous study performed 2 d ays earlier. Multiple 2 and 3 mm nonobstructing calculi are identified within the bilateral kidneys Adrenal glands: Unremarkable. Gastrointestinal tract: Postoperative change within the upper abdomen. Multiple loops of distended fluid-filled small bowel are identified to the left of midline, with air- fluid levels suggesting a component of obstruction, with air in the distal colon suggesting only a pa rtial obstruction. This finding is unchanged from most recent CT examination performed 12/20/2024, and an interval change from 11/15/2024. Appendix: The appendix is not definitively visualized. However, no pericecal inflammatory change is identified suggest the presence of acute appendicitis. Vasculature: Unremarkable. Lymph nodes: Limited evaluation without intravenous contrast. Pelvic structures: The bladder is decompressed, and otherwise unremarkable. The uterus is either surgically absent or markedly atrophic. Body wall and musculoskeletal: Age-appropriate degenerative disease within the lower thoracic and lumbosacral spine. IMPRESSION: Redemonstration of a right sided ureteral calculus with antegrade progression since prior study. Bilateral nonobstructing renal calculi. Redemonstration of postoperative change with findings to the left of midline suggesting a partial sma ll bowel obstruction, as detailed above. 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 IMPRESSION: Redemonstration of a right sided ureteral calculus with antegrade progression s daniel prior study. Bilateral nonobstructing renal calculi. Redemonstration of postoperative change with findings to the left of midline hardy ggesting a partial small bowel obstruction, as detailed above.
--- NOTE | ~2024-12-22 | CT_ITS ---
Non-contrast CT scan of the Abdomen and Pelvis Clinical indication: Right ureteral stone Technique: 2.5 mm axial scans were obtained through the abdomen and pelvis without intravenous or or al contrast. Dose reduction technique was used on this scan by utilizing automated exposure control a nd iterative reconstruction technique. The dose-length product (DLP) was 392.13 mGy-cm. COMPARISON: 12/22/2024 Findings: Images through the lung bases reveal no abnormalities. Small bilateral nonobstructing renal stones are present. Previously noted right ureteral stent appear s to pass, no longer visualized. No hydronephrosis. The liver, spleen, pancreas, and adrenals appear normal. Cholecystectomy clips are present. There is no aortic aneurysm. There is no evidence of bowel obstruction. Images through the pelvis were performed. There is no evidence of ascites or lymphadenopathy. Urinary bladder unremarkable. No pelvic mass evident. Impression: Small bilateral nonobstructing renal stones. No hydronephrosis. Previously noted proximal right urete ral stone appears to been passed since prior exam, no longer visualized. Reviewed, dictated and finalized at location . Impression: Small bilateral nonobstructing renal stones. No hydronephrosis. Previously note d proximal right ureteral stone appears to been passed since prior exam, no parisa tereza visualized.
--- NOTE | ~2024-12-22 | XR_ITS ---
EXAMINATION: XR small bowel follow through DATE: 12/23/2024 13:58 INDICATION: Small bowel obstruction TECHNIQUE: Supervisor Tele[employer]erks radiograph(s) of the abdomen was/were obtained. Water-soluble oral contrast was admi nistered through the patient's existing nasogastric tube, and sequential radiographs of the abdomen w ere obtained until oral contrast was noted to be in the proximal colon. COMPARISON: CT dated 01/01/2025 FINDINGS: Supervisor Tele[employer] image demonstrates nasogastric tube in proximal side port in the body the stomach to the left u pper quadrant. Suture line in the left upper quadrant. Cholecystectomy clips in right upper quadrant. Numerous metallic coils lower abdomen consistent with prior ventral hernia mesh repair. There is an additional suture line right lower quadrant. Transit time from the stomach to proximal colon was jad roximately 30 minutes. There is small bowel malrotation with the jejunum extending caudally into the right lower quadrant. There is normal caliber and mucosal fold pattern throughout the small bowel. IMPRESSION: 1. No bowel obstruction with contrast passing through the normal caliber small bowel to the cecum by 30 minutes. 2. 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
--- NOTE | ~2024-12-22 | XR_ITS ---
XR abdomen/kub 1V 12/24/2024 11:25 Indication: Right ureteral stent position Procedure: KUB Comparison: Comparison to multiple prior studies sequentially, with oldest reviewed study dated 01/07. Findings: There is a right pelvic phlebolith. There are changes of ventral hernia repair. There is re sidual contrast in the colon and rectum from recent small bowel follow-through examination. The contr ast obscures the kidneys and ureters. Right ureteral stone not definitely visualized on the current s tudy. There are pelvic phleboliths. Nonobstructive bowel gas pattern. Impression: 1: Nonobstructive bowel gas pattern. Limited evaluation for renal/ureteral stones secondary to residu al contrast in the colon. 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 Impression: 1: Nonobstructive bowel gas pattern. Limited evaluation for renal/ureteral ston es secondary to residual contrast in the colon.
--- NOTE | ~2024-12-22 | US_ITS ---
RIGHT UPPER EXTREMITY VENOUS ULTRASOUND Ordering provider: Cande Flores APRN History: . re eval for DVT . Comparison: None. FINDINGS: --JUGULAR: Patent and free of thrombus. Normal compressibility, phasic flow and augmentation. --SUBCLAVIAN: Patent and free of thrombus. Normal compressibility, phasic flow and augmentation. --AXILLARY: Patent and free of thrombus. Normal compressibility, phasic flow and augmentation. --BRACHIAL: Patent and free of thrombus. Normal compressibility, phasic flow and augmentation. --CEPHALIC: Patent and free of thrombus. Normal compressibility, phasic flow and augmentation. --BASILIC: Patent and free of thrombus. Normal compressibility, phasic flow and augmentation. --RADIAL: Patent and free of thrombus. Normal compressibility, phasic flow and augmentation. --ULNAR: Patent and free of thrombus. Normal compressibility, phasic flow and augmentation. IMPRESSION: Negative right upper extremity venous US. No deep vein thrombosis. 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
--- OUTSIDE RECORDS SUMMARY | 2024-12-22 19:26 | XMS_ITS | Patient Health Record ---
Author Organization [facility] Address [address] [address] Care Team Providers Care Periodontist Name Role Phone Anum Lisa Primary Care Provider Angelina Willis Unavailable Unavailable Reason For Referral [...] Risk Notes Problem Mild recurrent major depression (05364356) Major depressive disorder, recurrent episode, mild (296.31) 1 Active confirmed ([facility]) Added By: Angelina Garrett Problem Anxiety state (918807202) Anxiety state, unspecified (300.00) 1 Active confirmed ([facility]) Added By: Angelina Garrett Plan Of Treatment No Information Medical (General) History Surgical History Surgery Date(Month/Year) gastric bypass 2010 hernia repair 2011 lithotripsy October 2012 Hysterectomy
--- OUTSIDE RECORDS SUMMARY | 2024-12-22 19:26 | XMS_ITS | Clinical Summary ---
Author Organization [facility] Address [address] [place] [address] Phone Care Team Providers Care Ip/Mosaic Technician Name Role Phone Madhu Tilley MD Primary Care Provider [phone] Allergies Active Allergy Reactions Criticality Noted Date [...] Comments Blood Pressure 113/80 09/16/2019 4:37 PM WORK ENVIRONMENT SAFETY INSPECTOR Pulse 79 09/16/2019 4:37 PM WORK ENVIRONMENT SAFETY INSPECTOR Temperature 36.4 C (97.6 F) 09/16/2019 1:11 PM WORK ENVIRONMENT SAFETY INSPECTOR Respiratory Rate 18 09/16/2019 4:37 PM WORK ENVIRONMENT SAFETY INSPECTOR Oxygen Saturation 95% 09/16/2019 4:37 PM WORK ENVIRONMENT SAFETY INSPECTOR Inhaled Oxygen Concentration - - Weight 79.4 kg (175 lb) 09/16/2019 1:11 PM WORK ENVIRONMENT SAFETY INSPECTOR Height 162.6 cm (5' 4 ) 09/16/2019 1:11 PM WORK ENVIRONMENT SAFETY INSPECTOR Body Mass Index 30.04 09/16/2019 1:11 PM WORK ENVIRONMENT SAFETY INSPECTOR Plan of Treatment Health Maintenance Due Date [...] Advance Directives For more information, please contact: [phone] * Full Code (Latest Code Status on File) Date Activated Date Inactivated Comments 07/16/2018 9:55 PM 07/19/2018 2:03 PM Care Teams Ip/Mosaic Technician Relationship Specialty Start Date End Date Madhu Tilley MD [address] [facility] [address] [place] [address] PCP - General Internal Medicine 08/27/19
--- OUTSIDE RECORDS SUMMARY | 2024-12-22 19:26 | XMS_ITS | Patient Health Record ---
Author Organization [facility] Address [address] [place] [address] Care Team Providers Care Motor Coach Bus Driver Name Role Phone Madhu Tilley Primary Care Provider Allergies Allergen (clinical drug ingredient) Drug/Non Drug Allergy documented on EMR Reaction Allergy Type Onset Date Status esomeprazole Nexium Unknown Drug Allergy Acti ve ketorolac toradol (uncoded) Unknown Allergy Ac tive Contrast Dye (uncoded) Unknown Allergy Active Results Component Value Reference Range Notes Hemoglobin A1c* Reviewed date:06/07/2024 12:00:35 PM Interpretation: [...] date:06/07/2024 11:46:49 AM Interpretation: Performing Lab: Notes/Report: Reason For Referral [...] BY M OUT TWICE DAILY for 90 days Active tiZANidine HCl 4 MG 1 tablet [...] Problem Status W/U Status Risk Notes Problem 069188224 Hypomagnesemia (E83.42) Active confirmed Problem 55125711 Other chronic pa in (G89.29) Active confirmed Problem 653613401 Lumbago with sciatica, unspecified side (M54.40) Active confirmed Problem 051596538 Overactive bladd er (N32.81) Active confirmed Problem 72102470 Mood disorder (F39) Active confirmed Problem Posttraumatic stress disorder (34903707) PTSD (post-traumatic stress disorder) (F43.10) Active confirmed Problem 34483899 Vitamin D defici ency (E55.9) Active confirmed Problem Seizure disorder (622479666) Seizure disorder (G40.909) Active confirmed Problem Iron deficiency anemia (46460208) Iron deficiency anemia (D50.9) Active confirmed Problem 09313802 Chronic fatigue (R53.82) Active confirmed Problem Plantar fasciitis (212646180) Plantar fasciitis (M72.2) Active confirmed Problem Moderate recurrent major depression (29868867) Moderate episode of recurrent major depressive disorder (F33.1) 2017 Active confirmed Problem Backache (350109971) Dorsalgia (M54.9) Active confirmed Problem 903303605 Obesity (BMI 30-39.9) (E66.9) Active confirmed Problem 207372275 Panic attacks (F41.0) Active confirmed Problem 80565407 Essential hypertension (I10) 2018 Active confirmed Problem 91855469 Migraine without status migrainosus, not intractable, unspecified migraine type (G43.909) Active confirmed SEEing NEUROLOGIST Problem 63980189 Hyperparathyroid ism (E21.3) Active confirmed Problem 051437342 Excoriation (skin-picking) disorder (F42.4) Active confirmed Problem Malabsorption syndrome (80429073) Malabsorption due to intolerance, not elsewhere classified (K90.49) Active confirmed Problem 62960821 Kidney stones (N20.0) Active confirmed Problem Body mass index 30+ - obesity (201636491) Body mass index (BMI) of 30.0-30.9 in adult (Z68.30) Active confirmed Problem Obesity (702415362) Obesity, unspecified classification, unspecified obesity type, unspecified whether serious comorbidity present (E66.9) Active confirmed Problem History of bariatric surgical procedure (976104725) Gastric bypass status for obesity (Z98.84) 2022 Active confirmed Problem 240806557 Gastroesophageal reflux disease, unspecified whether esophagitis present (K21.9) Active confirmed Problem 33369869 Multinodular goi ter (nontoxic) (E04.2) Active confirmed Problem Metabolic syndrome (391037043) Metabolic syndrome (E88.810) Active confirmed Vital Signs Heart Rate 91 /min 07/25/2024 Respiratory Rate 16 /min 07/25/2024 Oximetry 91 % 07/25/2024 Blood pressure diastolic 80 mm Hg 07/25/2024 Height 64 in 07/25/2024 Blood pressure systolic 128 mm Hg 07/25/2024 Weight 203.2 lbs 07/25/2024 BMI 34.88 kg/m2 07/25/2024 Encounters Encounter Location Date Provider Diagnosis [address] [address] 05/30/2024 Maduh Tilley Plantar fasciitis M7 2.2 ; Body [...] Metabolic syndrome E88.810 and Dietary counseling Z71.[address] [address] 06/28/2024 Madhu Tilley Nutritional counseli ng Z71.3 ; Plantar fasciitis M72.2 ; Dorsalgia of multiple sites in spine M54.9 ; Migraine without status migrainosus, not intractable, unspecified migraine type G43.909 ; Cervical myofascial pain syndrome M79.18 ; Right hip pain M25.551 ; Dorsalgia M54.9 ; Body mass index (BMI) of 30.0-30.9 in adult Z68.30 and Seizure disorder G40.[address] [address] 07/25/2024 Madhu Tilley Nutritional counseli ng Z71.3 and DVT of right axillary vein, acute I82.A11 [address] [address] 08/21/2024 Madhu Tilley Body mass index (BMI ) of 30.0-30.9 in adult Z68.30 and DVT of right axillary vein, acute I82.A11 [facility] [address] [place] [address] 04/04/2024 Madhu Tilley Breast cancer screen ing by mammogram Z12.[address] [address] 08/10/2024 Madhu Tilley [address] [address] 09/05/2024 Madhu Tilley [address] [address] 09/26/2024 Madhu Tilley UTI (urinary tract infection) [...] End Date [employer] Medicare [address] [address] [place] [address] [id number] Misti Bai Self - patient is the insured 3 3 [employer] Medicare [address] [address] [place] [address] [id number] Misti Bai Self - patient is the insured 4 MEDICAID [address] [place] [address] [id number] Misti Bai Self - patient is the [...]
--- OUTSIDE RECORDS SUMMARY | 2024-12-22 19:26 | XMS_ITS | Clinical Summary ---
Author Organization [facility] Address [address] [place] [address] Care Team Providers Care Media Developer Name Role Phone Unavailable Primary Care Provider [...]
--- OUTSIDE RECORDS SUMMARY | 2024-12-22 19:26 | XMS_ITS | Clinical Summary ---
Author Organization [facility] Address [address] [place] [address] Phone Care Team Providers Care Cook Soup Name Role Phone Madhu Tilley MD Primary Care Provider [phone] Allergies Active Allergy Reactions Criticality Noted Date [...] Comments Blood Pressure 177/89 08/31/2023 5:00 PM LIGHTING EQUIPMENT OPERATOR Pulse 79 08/31/2023 5:00 PM LIGHTING EQUIPMENT OPERATOR Temperature 36.9 C (98.4 F) 08/31/2023 3:04 PM LIGHTING EQUIPMENT OPERATOR Respiratory Rate 17 08/31/2023 3:30 PM LIGHTING EQUIPMENT OPERATOR Oxygen Saturation 99% 08/31/2023 5:00 PM LIGHTING EQUIPMENT OPERATOR Inhaled Oxygen Concentration - - Weight 90.7 kg (200 lb) 08/31/2023 3:15 PM LIGHTING EQUIPMENT OPERATOR Height 162.6 cm (5' 4 ) 08/31/2023 3:04 PM LIGHTING EQUIPMENT OPERATOR Body Mass Index 34.33 08/31/2023 3:04 PM LIGHTING EQUIPMENT OPERATOR Plan of Treatment Health Maintenance Due [...] age to complete this topic Insurance MEDICAID [place] MEDICARE C [facility] Care Teams Cook Soup Relationship Specialty Start Date End Date Madhu Tilley MD [address] [place], [place] [id number] PCP - General Internal Medicine 08/31/23
--- OUTSIDE RECORDS SUMMARY | 2024-12-22 19:26 | XMS_ITS | CONTINUITY OF CARE DOCUMENT ---
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 active Jaime Beck MD HTN active Yung Childers MD h/o Kidney stones active Yung Childers MD ENCOUNTERS Date Type Provider Location Encounter Diag nosis - In-person encounter Office Visit Yung Childers MD [facility] HTNh/o Kidney stones - In-person encounter Office Visit Yung Childers MD [facility] - In-person encounter Office Visit Yung Childres MD [facility] - In-person encounter Office Visit Yung Childers MD [facility] - In-person encounter Office Visit Jaime Beck MD [facility] CHEST PAIN-02/21 NUC NEGSHORTNESS OF BREATH;NML, CXR, BNP AND DDIMER 09LVH;NML EF 02/21DYSPNEA ON EXERTION;WILL DO SPIROMETRYOBESITY;CA USE OF SOB? VITAL SIGNS Date Observation Value Provider Body Mass Index (Ratio) 32.78 kg/m2 Bud Childers MD blood pressure, diastolic 62 mm[Hg] Colton pickering [place] blood pressure, systolic 100 mm[Hg] Savannah gabriel Fleming oxygen saturation, oximetry 99 % Cheshire Fleming respiratory rate E&M 16 /min Cheshire Fleming pulse rate 76 /min Cheshire Fleming weight E&M 197 [lb_av] Cheshire Fleming height E&M 65 [in_i] [facility] Body Mass Index (Ratio) 32.45 kg/m2 Bud Childers MD blood pressure, cuff size regular Ke rri Jory blood pressure, diastolic 66 mm[Hg] Ke rri Jory blood pressure, systolic 110 mm[Hg] Cely Corley oxygen saturation, oximetry 97 % Nadia Corley respiratory rate E&M 18 /min Nadia giles pulse rate 42 /min Nadia vazquez weight E&M 195 [lb_av] Nadia Blackman [facility] height E&M 65 [in_i] Nadia Blackman [facility] Body Mass Index (Ratio) 33.28 kg/m2 Bud Childers MD blood pressure, cuff size regular Ke rri Jory blood pressure, diastolic 74 mm[Hg] Ke jacei Jory blood pressure, systolic 116 mm[Hg] Cely Corley oxygen saturation, oximetry 98 % Nadia Diazkhanh respiratory rate E&M 18 /min Nadia Portillo alclivejarod pulse rate 75 /min Nadia Blackman [facility] weight E&M 200 [lb_av] Nadia Diazyocastajenniferjose vazquez height E&M 65 [in_i] Nadia Diazyocastaethandereck [facility] Body Mass Index (Ratio) 32.95 kg/m2 Bud Childers MD blood pressure, cuff size regular Ke kiran Jory height E&M 65 [in_i] Nadia Hiral vazquez blood pressure, diastolic 80 mm[Hg] Ke kiran Jory blood pressure, systolic 122 mm[Hg] Cely aragon Jory oxygen saturation, oximetry 99 % Nadia Jory respiratory rate E&M 18 /min Nadia Portillo tisha pulse rate 87 /min Nadia Diazyocastadelano [facility] weight E&M 198 [lb_av] Nadia Diazoctavio [facility] blood pressure, diastolic 60 mm[Hg] Kyung sherman [...] day no Nadia Jory smoking status Non-smoker Ndaia sanchez social history E&M Marital Statu s: [...] Payer name Policy type / Coverage type [place] red libertarian ID AARP MEDICARE ADVANTAGE ([facility] COMPLETE PPO) Other [id number] ADVANCE DIRECTIVES Name Date DISCUSSED - NO [...] ..... One tab. daily Orders: S pirometry (CPT-53370) BP today: 101/60 Prior BP: / () [...] or scar. (03/04/2009) Orders: C omplete Echo (CPT-[id number]) Jaime Beck MD [place] due to obesity: [...] STR - Adenosine ZIO Holter DLCO - 54891 FRC - 42775 FVC - 13694 Complete Echo Complete Echo Spirometry HISTORY OF PROCEDURES Procedure Date Procedure Name Provider Procedure Notes S tatus Ambulatory BP Yung Childers MD comple dwight Stress EKG Al Maguire MD completed Regadenoson, 4 units Yung Childers MD completed Cardiolite, 2 units Yung Childers MD completed SPECT Images Shy Villasenor MD complet ed SNOMED-CT: 16469380 Physical Exam, Performed: Pulse Exam of Foot Yung Childers MD completed SNOMED-CT: 461727536 101688 Current Medications Documented Yung Childers MD completed SNOMED-CT: 50553894 Physical Exam, Performed: Pulse Exam of Foot Yung Childers MD completed SNOMED-CT: 317124421 727470 Current Medications Documented Yung Childers MD completed FVC / MVV with bronchodilator - 96086 Yung Childers MD completed FRC - 10952 Yung Childers MD complete d SpO2 - 45348 Yung Childers MD complet ed DLCO - 17829 Yung Childers MD complet ed IVAN Childers MD co mpleted SNOMED-CT: 13571278 Physical Exam, Performed: Pulse Exam of Foot Yung Childers MD completed EKG Yung Childers MD completed SNOMED-CT: 960759948 042564 Current Medications Documented Yung Childers MD completed
--- OUTSIDE RECORDS SUMMARY | 2024-12-22 19:27 | XMS_ITS | Clinical Summary ---
Author Organization [facility] [employer] Address [address] [place] [address] Care Team Providers Care Wireless Manager Name Role Phone Madhu Tilley MD Primary Care Provider [phone] Source Comments [facility],non-owned Affiliates and Associated Physician Practices is amultiple site organization consisting of ambulatory clinics and hospital sitesin [place], [place], [place] and [place]. This disclosure is being madepursuant to the Care Everywhere program and may not contain all information available regarding this patient. Last updated 18.[facility] [employer] Allergies Active Allergy Reactions Criticality Noted Date [...] vitamin D, ergocalciferol , (Drisdol) 1.25 MG (96919 UT) capsule Take 1 (one) capsule by [...] fluticasone propionate (Flonase) 50 MCG/ACT nasal spray [place] 2 (two) sprays into each nostril once [...] and heating? Not hard at all 03/30/2023 [facility] - Occupational Stress [...] No 03/30/2023 Housing Stability Vital Sign Answer Alrfedo e Recorded In the last 12 months, [...] place to sleep or slept in a skilled nursing (including now)? No 03/30/2023 Comments No Sex and Gender Information Value Date Recorded Sex Assigned at Female Legal Sex Female 10:00 AM SOLAR PANEL INSTALLER Gender Identity Female Sexual Orientation Straight Last [...] this topic Medical Devices Implanted Type Area Commercial Print Salesman Device Identifier Shelf Expiration Date Model / Serial / Lot Graft Tissue Nushield 3x2cm [facility] - [id number] Implanted:Qty: 1 on 10/22/2021 by Ramone Galloway MD at [facility] N/A: Back Organogenesis 05/05/2025 [id number] / [id number] / Procedures Procedure Name Priority Date/Time Associated Diagnosis Comments BASIC METABOLIC PANEL (CALCIUM TOTAL) Routine 04/03/2023 3:08 AM CDT HEPATITIS SCREEN ACUTE Routine 02/21/2021 3:19 AM CDT HIV-1 HIV-2 ANTIGEN/ANTIBODY STAT 10/13/2018 11:33 AM SOLAR PANEL INSTALLER LIPID PROFILE Routine 09/22/2013 2:15 PM SOLAR PANEL INSTALLER Major Depressive Disorder, Recurrent Episode, Mild from Last 3 Months or Most Recently Relevant to Health Maintenance Results * (ABNORMAL) BASIC METABOLIC PANEL (CALCIUM TOTAL) (04/03/2023 3:08 AM CDT) Pathologist [facility] Glucose 84 70 - 105 mg/dL 04/03/2023 [...] - 10.4 mg/dL 04/03/2023 4:27 AM CDT [facility] Anion Gap 8 6 - 16 mmol/L 04/03/2023 4:27 AM CDT [facility] BUN 16 7 - 26 mg/dL 04/03/2023 4:27 AM CDT [facility] Creatinine 0.69 0.57 - 1.11 mg/dL 04/03/2023 4:27 AM CDT [facility] eGFR by CKD-EPI >90 >=90 mL/min/1.7 3 m2 04/03/2023 4:27 AM CDT [facility] Blood BLOOD SPECIMEN / Unknown Venipuncture / Unknown 04/03/2023 3:08 AM CDT 04/03/2023 4:09 AM CDT us Jacqueline Jerome [facility]ECAN [facility] - CHEMISTRY O RDERABLES Final Result Performing Organization Address [facility] de Phone Number [facility] [address] [place] [address] * HEPATITIS SCREEN ACUTE (02/21/2021 3:19 AM CDT) Pathologist [facility] HAV Antibody IgM Non Reactive Non Reactive 02/21/2021 4:52 AM CDT [facility] HBsAg Non Reactive Non Reactive 02/21/2021 4:52 AM CDT [facility] HBc Antibody IgM Non Reactive Non Reactive 02/21/2021 4:52 AM CDT [facility] HCV Antibody Screen Non Reactive Non Reactive 02/21/2021 4:52 AM CDT [facility] Blood BLOOD SPECIMEN / Unknown Venipuncture / Unknown 02/21/2021 3:19 AM CDT 02/21/2021 4:01 AM CDT Narrative [facility] - 02/21/2021 4:52 AM CDT Non Reactive - Antibodies to Hepatitis C virus (HCV) were not detected, result does not exclude early acute HCV infection. us Rylie Villalobos MD LAB - CHEMISTRY ORDERABLES Final Result Performing Organization Address [facility] de Phone Number [facility] [address] [place] [address] * HIV-1 HIV-2 ANTIGEN/ANTIBODY (10/13/2018 11:33 AM SOLAR PANEL INSTALLER) [facility] HIV Antigen/Antibod y 1 & 2 Non-reacti ve Non-react fredrick 10/13/2018 12:39 PM SOLAR PANEL INSTALLER [facility] Comment: Neither HIV-1 p24 Antigen nor HIV-1/HIV-2 Antibodies are detected. Blood BLOOD SPECIMEN / Unknown Venipuncture / Unknown 10/13/2018 11:33 AM SOLAR PANEL INSTALLER 10/13/2018 11:45 AM SOLAR PANEL INSTALLER us Scott Chun MD LAB - HEMATOLOGY ORDERABLES F inal Result [facility] [address] [place] [address], [facility] [phone] * LIPID PROFILE (09/22/2013 2:15 PM SOLAR PANEL INSTALLER) [facility] Cholesterol 149 <200 mg/dL 09/22/2013 3:18 PM SOLAR PANEL INSTALLER [facility] Triglycerides 79 <150 mg/dL 09/22/2013 3:18 PM SOLAR PANEL INSTALLER [facility] HDL Cholesterol 66 >40 mg/dL 4 3:18 PM [facility] Chol HDL Ratio 2.3 1.0 - 6.0 09/22/2013 3:18 PM SOLAR PANEL INSTALLER [facility] LDL Calculated 67 65 - 130 mg/dL 09/22/2013 3:18 PM SOLAR PANEL INSTALLER [facility] VLDL Calculated 16 10 - 40 mg/dL 09/22/2013 3:18 PM SOLAR PANEL INSTALLER [facility] Blood BLOOD SPECIMEN / Unknown Venipuncture / Unknown 09/22/2013 2:15 PM SOLAR PANEL INSTALLER 09/22/2013 2:29 PM SOLAR PANEL INSTALLER Narrative [facility] - 09/22/2013 3:18 PM SOLAR PANEL INSTALLER Lipid Profile Comment: CHOLESTEROL LEVEL..................CLINICAL INTERPRETATION LESS [...] [facility] LAB - CHEMISTRY ORDERABLES Final Result [facility] [address] from Last 3 Months or Most Recently Relevant to Health Maintenance Additional Health Concerns Infection Onset Date Last Indicated ESBL Hx Comment:urine 11/08/2018 03/16/2023 [place] [address] [facility] MANAGED MEDICARE ADV MEDICAID - [place] * Guarantor: PRASHANT FARLEY Account Type Relation to Patient Date of Phone Billing Address Personal/Family 1970 [address] [place] [address] Advance Directives * Full Code (Latest Code [...] 12:36 PM 09/17/2022 2:57 PM Care Teams Wireless Manager Relationship Specialty Start Date End Date Madhu Tilley MD [address] [place] [address] PCP - General Internal Medicine 03/17/23
--- OUTSIDE RECORDS SUMMARY | 2024-12-22 19:27 | XMS_ITS | Clinical Summary ---
Author Organization [facility] Address [address] [place] [address] Care Team Providers Care Launch Steward Name Role Phone Kit Jonas MD Unavailable Madhu Tilley MD Primary Care Provider Allergies [...] often do you attend chur ch or alevism services? Never 02/04/2023 Do you belong to any clubs o r organizations such as restorationist groups, unions, fraternal or athletic groups, or [...] on file Legal Sex Female 2:16 AM MARINE CHRONOMETER ASSEMBLER Gender Identity Not on file Sexual Orientation Not on file Obstetrics History Last Filed Vital Signs Vital Sign Reading Time Taken Comments Blood Pressure 149/87 09/18/2023 7:03 PM MARINE CHRONOMETER ASSEMBLER Pulse 80 09/18/2023 7:03 PM MARINE CHRONOMETER ASSEMBLER Temperature 37 C (98.6 F) 09/18/2023 7:03 PM MARINE CHRONOMETER ASSEMBLER Respiratory Rate 16 09/18/2023 7:03 PM MARINE CHRONOMETER ASSEMBLER Oxygen Saturation 100% 09/18/2023 7:03 PM MARINE CHRONOMETER ASSEMBLER Inhaled Oxygen Concentration - - Weight 88.5 kg (195 lb) 09/18/2023 2:48 PM MARINE CHRONOMETER ASSEMBLER Height 162.6 cm (5' 4 ) 06/06/2023 [...] CDT Narrative 05/10/2017 5:10 PM CDT Acc#: [id number] JOSE RAUL 0015 - Diag Mamm BI [...] M.D. TECHNOLOGIST: SHANE DUMONT TECHNOLOGIST MEDICAL IMAGING SAFETY SUPERVISOR: [facility] TRANSCRIBE DATE/TIME: May 11 2017 4:05P RADIOLOGIST: MARJORIE FRIAS M.D. READ ON: May 10 2017 3:22P ORDERING DR: NADIA BROWN M.D. THIS DOCUMENT HAS BEEN ELECTRONICALLY SIGNED BY: MARJORIE FRIAS M.D. ON: May 11 2017 4:05P Attending: DENG JACOBSON Requesting: NADIA BROWN Requesting Attending Attending ID: [id number] Requesting ID: [id number] Report To 1 ID: [id number] Report To 1 Name: DENG JACOBSON Report To 1 FAX: [phone] Report To 2 ID: Report To 2 Name: , Report To 2 FAX: -- NextGen Order #: Procedure Note Miscellaneous, Not In File / Provider, MD Keren - 05/11/2017 Acc#: [id number] JOSE RAUL 0015 - Diag Mamm BI [...] Frias M.D. TECHNOLOGIST: RICARDO COLVINOLOGIST MEDICAL IMAGING SAFETY SUPERVISOR: [facility] TRANSCRIBE DATE/TIME: May 11 2017 4:05P RADIOLOGIST: MARJORIE FRIAS M.D. READ ON: May 10 2017 3:22P ORDERING DR: NADIA BROWN M.D. THIS DOCUMENT HAS BEEN ELECTRONICALLY SIGNED BY: MARJORIE FRIAS M.D. ON: May 11 2017 4:05P Attending: DENG JACOBSON Requesting: NADIA BROWN Requesting Attending Attending ID: [id number] Requesting ID: [id number] Report To 1 ID: [id number] Report To 1 Name: DENG JACOBSON Report To 1 FAX: [phone] Report To 2 ID: Report To 2 Name: , Report To 2 FAX: -- NextGen Order #: Nadia Brown MD IMG MAMMO PROCEDURES E dited Result - Final from Last 3 Months or Most Recently Relevant to Health Maintenance Additional Health Concerns Infection Onset Date Last Indicated MDR gram neg/ESBL Comment:ESBL E.coli urine 11/07/17, 11/15/17, 04/16/18, 02/21/19 11/07/2017 02/21/2019 Insurance [employer] MEDICARE HUMAN CLAIMS OFFICE [facility] MEDICARE ADVANTAGE IDPA [facility] MEDICARE ADVANTAGE IDPA [facility] MEDICARE ADVANTAGE Advance Directives For more information, please contact: [phone] * Full Code (Latest Code Status on File) Date Activated Date Inactivated Comments 02/03/2023 7:52 PM 02/05/2023 5:54 PM * Full Code Date Activated Date Inactivated Comments 04/19/2018 11:35 AM 04/20/2018 8:58 PM * Full Code Date Activated Date Inactivated Comments 02/03/2018 12:56 AM 02/04/2018 7:24 PM Care Teams Launch Steward Relationship Specialty Start Date End Date Madhu Tilley MD PCP - General 07/04/20 Kit Jonas MD Surgeon General Surgery 02/04/18
--- OUTSIDE RECORDS SUMMARY | 2024-12-22 19:27 | XMS_ITS | Referral Summary ---
Author Organization [facility] Address [address] [place] [address] Care Team Providers Care Grain Operator Name Role Phone Kit Jonas MD Unavailable [phone] Madhu Tilley MD Primary Care Provider [phone] Allergies Active Allergy Reactions Criticality Noted Date [...] often do you attend chur ch or zoroastrian services? Never 02/04/2023 Do you belong to any clubs o r organizations such as jewish groups, unions, fraternal or athletic groups, or [...] place to sleep or slept in a group home (including now)? No 02/04/2023 Housing Stability [...] on file Legal Sex Female 2:16 AM BALL MACHINE OPERATOR Gender Identity Not on file Sexual Orientation Not on file Last Filed Vital Signs Vital Sign Reading Time Taken Comments Blood Pressure 149/87 09/18/2023 7:03 PM BALL MACHINE OPERATOR Pulse 80 09/18/2023 7:03 PM BALL MACHINE OPERATOR Temperature 37 C (98.6 F) 09/18/2023 7:03 PM BALL MACHINE OPERATOR Respiratory Rate 16 09/18/2023 7:03 PM BALL MACHINE OPERATOR Oxygen Saturation 100% 09/18/2023 7:03 PM BALL MACHINE OPERATOR Inhaled Oxygen Concentration - - Weight 88.5 kg (195 lb) 09/18/2023 2:48 PM BALL MACHINE OPERATOR Height 162.6 cm (5' 4 ) 06/06/2023 [...] CDT Narrative 05/10/2017 5:10 PM CDT Acc#: [id number] JOSE RAUL 0015 - Diag Mamm BI [...] M.D. TECHNOLOGIST: SHANE DUMONT TECHNOLOGIST MEDICAL IMAGING WHEEL SHOP SUPERVISOR: [facility] TRANSCRIBE DATE/TIME: May 11 2017 4:05P RADIOLOGIST: MARJORIE FRIAS M.D. READ ON: May 10 2017 3:22P ORDERING DR: NADIA BROWN M.D. THIS DOCUMENT HAS BEEN ELECTRONICALLY SIGNED BY: MARJORIE FRIAS M.D. ON: May 11 2017 4:05P Attending: DENG JACOBSON Requesting: NADIA BROWN Requesting Attending Attending ID: [id number] Requesting ID: [id number] Report To 1 ID: [id number] Report To 1 Name: DENG JACOBSON Report To 1 FAX: [phone] Report To 2 ID: Report To 2 Name: , Report To 2 FAX: -- NextGen Order #: Procedure Note Miscellaneous, Not In File / Provider, MD Keren - 05/11/2017 Acc#: [id number] JOSE RAUL 0015 - Diag Mamm BI [...] M.D. TECHNOLOGIST: SHANE DUMONT TECHNOLOGIST MEDICAL IMAGING WHEEL SHOP SUPERVISOR: [facility] TRANSCRIBE DATE/TIME: May 11 2017 4:05P RADIOLOGIST: MARJORIE FRIAS M.D. READ ON: May 10 2017 3:22P ORDERING DR: NADIA BROWN M.D. THIS DOCUMENT HAS BEEN ELECTRONICALLY SIGNED BY: MARJORIE FRIAS M.D. ON: May 11 2017 4:05P Attending: DENG JACOBSON Requesting: NADIA BROWN Requesting Attending Attending ID: [id number] Requesting ID: [id number] Report To 1 ID: [id number] Report To 1 Name: DENG JACOBSON Report To 1 FAX: [phone] Report To 2 ID: Report To 2 Name: , Report To 2 FAX: -- NextGen Order #: Nadia Brown MD IMG MAMMO PROCEDURES E dited Result - Final from Last 3 Months or Most Recently Relevant to Health Maintenance Additional Health Concerns Infection Onset Date Last Indicated MDR gram neg/ESBL Comment:ESBL E.coli urine 11/07/17, 11/15/17, 04/16/18, 02/21/19 11/07/2017 02/21/2019 Insurance IDPA MEDICARE [facility] CLAIMS OFFICE [facility] MEDICARE ADVANTAGE [address] [address] [facility] MEDICARE ADVANTAGE IDPA [facility] MEDICARE ADVANTAGE [facility] MEDICARE Address: [address] [address] [place] [address] Advance Directives For more information, please contact: [phone] * Full Code (Latest Code Status on File) Date Activated Date Inactivated Comments 02/03/2023 7:52 PM 02/05/2023 5:54 PM * Full Code Date Activated Date Inactivated Comments 04/19/2018 11:35 AM 04/20/2018 8:58 PM * Full Code Date Activated Date Inactivated Comments 02/03/2018 12:56 AM 02/04/2018 7:24 PM Care Teams Grain Operator Relationship Specialty Start Date End Date Madhu Tilley MD PCP - General 07/04/20 Kit Jonas MD Surgeon General Surgery 02/04/18
--- OUTSIDE RECORDS SUMMARY | 2024-12-22 19:58 | XMS_ITS | Clinical Summary ---
Author Organization [facility] Address [address] [place] [address] Phone Care Team Providers Care Market Superintendent Name Role Phone Madhu Tilley MD Primary Care Provider [phone] Allergies Active Allergy Reactions Criticality Noted Date [...] Comments Blood Pressure 113/80 09/16/2019 4:37 PM OR MANAGER Pulse 79 09/16/2019 4:37 PM OR MANAGER Temperature 36.4 C (97.6 F) 09/16/2019 1:11 PM OR MANAGER Respiratory Rate 18 09/16/2019 4:37 PM OR MANAGER Oxygen Saturation 95% 09/16/2019 4:37 PM OR MANAGER Inhaled Oxygen Concentration - - Weight 79.4 kg (175 lb) 09/16/2019 1:11 PM OR MANAGER Height 162.6 cm (5' 4 ) 09/16/2019 1:11 PM OR MANAGER Body Mass Index 30.04 09/16/2019 1:11 PM OR MANAGER Plan of Treatment Health Maintenance Due Date [...] Advance Directives For more information, please contact: [phone] * Full Code (Latest Code Status on File) Date Activated Date Inactivated Comments 07/16/2018 9:55 PM 07/19/2018 2:03 PM Care Teams Market Superintendent Relationship Specialty Start Date End Date Madhu Tilley MD [address] [facility] [address] [place] [address] PCP - General Internal Medicine 08/27/19
--- OUTSIDE RECORDS SUMMARY | 2024-12-22 19:58 | XMS_ITS | Clinical Summary ---
Author Organization [facility] Address [address] [place] [address] Phone Care Team Providers Care Can Cutter Name Role Phone Madhu Tilley MD Primary Care Provider [phone] Allergies Active Allergy Reactions Criticality Noted Date [...] Comments Blood Pressure 177/89 08/31/2023 5:00 PM MANAGER FIXED INCOME Pulse 79 08/31/2023 5:00 PM MANAGER FIXED INCOME Temperature 36.9 C (98.4 F) 08/31/2023 3:04 PM MANAGER FIXED INCOME Respiratory Rate 17 08/31/2023 3:30 PM MANAGER FIXED INCOME Oxygen Saturation 99% 08/31/2023 5:00 PM MANAGER FIXED INCOME Inhaled Oxygen Concentration - - Weight 90.7 kg (200 lb) 08/31/2023 3:15 PM MANAGER FIXED INCOME Height 162.6 cm (5' 4 ) 08/31/2023 3:04 PM MANAGER FIXED INCOME Body Mass Index 34.33 08/31/2023 3:04 PM MANAGER FIXED INCOME Plan of Treatment Health Maintenance Due Date [...] age to complete this topic Insurance [place] MEDICARE C [facility] Care Teams Can Cutter Relationship Specialty Start Date End Date Madhu Tilley MD [address] [place], [place] [id number] PCP - General Internal Medicine 08/31/23
--- OUTSIDE RECORDS SUMMARY | 2024-12-22 19:58 | XMS_ITS | CONTINUITY OF CARE DOCUMENT ---
Author Name bruno carr Address Unknown Organization [facility] Address [address] [place] [address] Phone [phone] Care Team Providers Care Sugar Sampler Name Role Phone Liseth GUERRERO, Yung Unavailable [phone] GAVINO QUINTEROS MD Unavailable [phone] MADDY BAIRD MD Unavailable [phone] PROBLEMS Condition Status Date Provider Notes [...] In-person encounter Office Visit Yung Childers MD [facility] HTNh/o Kidney stones - In-person encounter Office Visit Yung Childers MD [facility] - In-person encounter Office Visit Yung Childers MD [facility] - In-person encounter Office Visit Yung Childers MD [facility] - In-person encounter Office Visit Jaime Beck MD [facility] CHEST PAIN-02/21 NUC NEGSHORTNESS OF BREATH;NML, CXR, BNP AND DDIMER 09LVH;NML EF 02/21DYSPNEA ON EXERTION;WILL DO SPIROMETRYOBESITY;CA USE OF SOB? VITAL SIGNS Date Observation Value Provider Body Mass Index (Ratio) 32.78 kg/m2 Bud Childers MD blood pressure, diastolic 62 mm[Hg] Colton pickering [place] blood pressure, systolic 100 mm[Hg] Savannah gabriel [place] oxygen saturation, oximetry 99 % [place] respiratory rate E&M 16 /min [place] pulse rate 76 /min [place] weight E&M 197 [lb_av] [place] height E&M 65 [in_i] [facility] Body Mass Index (Ratio) 32.45 kg/m2 Bud Childers MD blood pressure, cuff size regular Ke rri Jory blood pressure, diastolic 66 mm[Hg] Ke rri Jory blood pressure, systolic 110 mm[Hg] Cely Corley oxygen saturation, oximetry 97 % Nadia Corley respiratory rate E&M 18 /min Nadia giles pulse rate 42 /min Nadia vazquez weight E&M 195 [lb_av] Nadia Blackman [facility] height E&M 65 [in_i] Nadia Blackman [facility] Body Mass Index (Ratio) 33.28 kg/m2 Bud Childers MD blood pressure, cuff size regular Ke rri Jory blood pressure, diastolic 74 mm[Hg] Ke jacei Jory blood pressure, systolic 116 mm[Hg] Cely Corley oxygen saturation, oximetry 98 % Nadia Diazkhanh respiratory rate E&M 18 /min Nadia Portillo alclivejarod pulse rate 75 /min Nadia Blackman [facility] weight E&M 200 [lb_av] Nadia Diazyocastajenniferjose vazquez height E&M 65 [in_i] Nadia Diazyocastaethandereck [facility] Body Mass Index (Ratio) 32.95 kg/m2 Bud Childers MD blood pressure, cuff size regular Ke kiran Jory height E&M 65 [in_i] Nadia Hiral vazquez blood pressure, diastolic 80 mm[Hg] Ke kiran Jory blood pressure, systolic 122 mm[Hg] Cely aragon [place] oxygen saturation, oximetry 99 % Nadia Jory respiratory rate E&M 18 /min Nadia Portillo tisha pulse rate 87 /min Nadia Diazyocastadelano [facility] weight E&M 198 [lb_av] Nadia Diazoctavio [facility] blood pressure, diastolic 60 mm[Hg] Kyung sherman [...] Payer name Policy type / Coverage type [place] red libertarian ID AARP MEDICARE ADVANTAGE ([facility] COMPLETE PPO) Other [id number] ADVANCE DIRECTIVES Name Date DISCUSSED - NO [...] ..... One tab. daily Orders: S pirometry (CPT-18940) BP today: 101/60 Prior BP: / () [...] or scar. (03/04/2009) Orders: C omplete Echo (CPT-27372) Jaime Beck MD [place] due to obesity: [...] STR - Adenosine ZIO Holter DLCO - 50181 FRC - 07624 FVC - 31643 Complete Echo Complete Echo Spirometry HISTORY OF PROCEDURES Procedure Date Procedure Name Provider Procedure Notes S tatus Ambulatory BP Yung Childers MD comple dwight Stress EKG Al Maguire MD completed Regadenoson, 4 units Yung Childers MD completed Cardiolite, 2 units Yung Childers MD completed SPECT Images Shy Villasenor MD complet ed SNOMED-CT: 74475142 Physical Exam, Performed: Pulse Exam of Foot Yung Childers MD completed SNOMED-CT: 923757077 940118 Current Medications Documented Yung Childers MD completed SNOMED-CT: 07599155 Physical Exam, Performed: Pulse Exam of Foot Yung Childers MD completed SNOMED-CT: 984085527 570373 Current Medications Documented Yung Childers MD completed FVC / MVV with bronchodilator - 81538 Yung Childers MD completed FRC - 26104 Yung Childers MD complete d SpO2 - 88232 Yung Childers MD complet ed DLCO - 11675 Yung Childers MD complet ed IVAN Childers MD co mpleted SNOMED-CT: 28485160 Physical Exam, Performed: Pulse Exam of Foot Yung Childers MD completed EKG Yung Childers MD completed SNOMED-CT: 117364458 566803 Current Medications Documented Yung Childers MD completed
--- OUTSIDE RECORDS SUMMARY | 2024-12-22 19:58 | XMS_ITS | Clinical Summary ---
Author Organization [facility] Address [address] [place] [address] Care Team Providers Care Lunchroom Food Service Supervisor Name Role Phone Kit Jonas MD Unavailable [phone] Madhu Tilley MD Primary Care Provider [phone] Allergies Active Allergy Reactions Criticality Noted Date [...] often do you attend chur ch or pentecostalism services? Never 02/04/2023 Do you belong to any clubs o r organizations such as mosque groups, unions, fraternal or athletic groups, or [...] slept in a half-way (including now)? No 02/04/2023 Housing Stability Vital [...] on file Legal Sex Female 2:16 AM SHEET CATCHER Gender Identity Not on file Sexual Orientation Not on file Obstetrics History Last Filed Vital Signs Vital Sign Reading Time Taken Comments Blood Pressure 149/87 09/18/2023 7:03 PM SHEET CATCHER Pulse 80 09/18/2023 7:03 PM SHEET CATCHER Temperature 37 C (98.6 F) 09/18/2023 7:03 PM SHEET CATCHER Respiratory Rate 16 09/18/2023 7:03 PM SHEET CATCHER Oxygen Saturation 100% 09/18/2023 7:03 PM SHEET CATCHER Inhaled Oxygen Concentration - - Weight 88.5 kg (195 lb) 09/18/2023 2:48 PM SHEET CATCHER Height 162.6 cm (5' 4 ) 06/06/2023 [...] CDT Narrative 05/10/2017 5:10 PM CDT Acc#: [id number] JOSE RAUL 0015 - Diag Mamm BI [...] M.D. TECHNOLOGIST: SHANE DUMONT TECHNOLOGIST MEDICAL IMAGING GEOLOGIST: [facility] TRANSCRIBE DATE/TIME: May 11 2017 4:05P RADIOLOGIST: MARJORIE FRIAS M.D. READ ON: May 10 2017 3:22P ORDERING DR: NADIA BROWN M.D. THIS DOCUMENT HAS BEEN ELECTRONICALLY SIGNED BY: MARJORIE FRIAS M.D. ON: May 11 2017 4:05P Attending: DENG JACOBSON Requesting: NADIA BROWN Requesting Attending Attending ID: [id number] Requesting ID: [id number] Report To 1 ID: [id number] Report To 1 Name: DENG JACOBSON Report To 1 FAX: [phone] Report To 2 ID: Report To 2 Name: , Report To 2 FAX: -- NextGen Order #: Procedure Note Miscellaneous, Not In File / Provider, MD Keren - 05/11/2017 Acc#: [id number] JOSE RAUL 0015 - Diag Mamm BI [...] Frias M.D. TECHNOLOGIST: RICARDO COLVINOLOGIST MEDICAL IMAGING GEOLOGIST: [facility] TRANSCRIBE DATE/TIME: May 11 2017 4:05P RADIOLOGIST: MARJORIE FRIAS M.D. READ ON: May 10 2017 3:22P ORDERING DR: NADIA BROWN M.D. THIS DOCUMENT HAS BEEN ELECTRONICALLY SIGNED BY: MARJORIE FRIAS M.D. ON: May 11 2017 4:05P Attending: DENG JACOBSON Requesting: NADIA BROWN Requesting Attending Attending ID: [id number] Requesting ID: [id number] Report To 1 ID: [id number] Report To 1 Name: DENG JACOBSON Report To 1 FAX: [phone] Report To 2 ID: Report To 2 Name: , Report To 2 FAX: -- NextGen Order #: Nadia Brown MD IMG MAMMO PROCEDURES E dited Result - Final from Last 3 Months or Most Recently Relevant to Health Maintenance Additional Health Concerns Infection Onset Date Last Indicated MDR gram neg/ESBL Comment:ESBL E.coli urine 11/07/17, 11/15/17, 04/16/18, 02/21/19 11/07/2017 02/21/2019 Insurance [employer] MEDICARE HUMAN CLAIMS OFFICE [facility] MEDICARE ADVANTAGE IDPA [facility] MEDICARE ADVANTAGE IDPA [facility] MEDICARE ADVANTAGE Advance Directives For more information, please contact: [phone] * Full Code (Latest Code Status on File) Date Activated Date Inactivated Comments 02/03/2023 7:52 PM 02/05/2023 5:54 PM * Full Code Date Activated Date Inactivated Comments 04/19/2018 11:35 AM 04/20/2018 8:58 PM * Full Code Date Activated Date Inactivated Comments 02/03/2018 12:56 AM 02/04/2018 7:24 PM Care Teams Lunchroom Food Service Supervisor Relationship Specialty Start Date End Date Madhu Tilley MD PCP - General 07/04/20 Kit Jonas MD Surgeon General Surgery 02/04/18
--- OUTSIDE RECORDS SUMMARY | 2024-12-22 19:58 | XMS_ITS | Clinical Summary ---
Author Organization [facility] Address [address] [place] [address] Care Team Providers Care Stenotype Machine Operator Name Role Phone Unavailable Primary Care Provider [...]
--- OUTSIDE RECORDS SUMMARY | 2024-12-22 19:58 | XMS_ITS | Referral Summary ---
Author Organization [facility] Address [address] [place] [address] Care Team Providers Care Director Of Online Education Name Role Phone Kit Jonas MD Unavailable [phone] Madhu Tilley MD Primary Care Provider [phone] Allergies Active Allergy Reactions Criticality Noted Date [...] often do you attend chur ch or anglican services? Never 02/04/2023 Do you belong to any clubs o r organizations such as denominational groups, unions, fraternal or athletic groups, or [...] place to sleep or slept in a chcf (including now)? No 02/04/2023 Housing Stability Vital [...] on file Legal Sex Female 2:16 AM DESIGN ENGINEER Gender Identity Not on file Sexual Orientation Not on file Last Filed Vital Signs Vital Sign Reading Time Taken Comments Blood Pressure 149/87 09/18/2023 7:03 PM DESIGN ENGINEER Pulse 80 09/18/2023 7:03 PM DESIGN ENGINEER Temperature 37 C (98.6 F) 09/18/2023 7:03 PM DESIGN ENGINEER Respiratory Rate 16 09/18/2023 7:03 PM DESIGN ENGINEER Oxygen Saturation 100% 09/18/2023 7:03 PM DESIGN ENGINEER Inhaled Oxygen Concentration - - Weight 88.5 kg (195 lb) 09/18/2023 2:48 PM DESIGN ENGINEER Height 162.6 cm (5' 4 ) 06/06/2023 [...] CDT Narrative 05/10/2017 5:10 PM CDT Acc#: [id number] JOSE RAUL 0015 - Diag Mamm BI [...] M.D. TECHNOLOGIST: SHANE DUMONT TECHNOLOGIST MEDICAL IMAGING INTERVENTIONAL CARDIOLOGIST: [facility] TRANSCRIBE DATE/TIME: May 11 2017 4:05P RADIOLOGIST: MARJORIE FRIAS M.D. READ ON: May 10 2017 3:22P ORDERING DR: NADIA BROWN M.D. THIS DOCUMENT HAS BEEN ELECTRONICALLY SIGNED BY: MARJORIE FRIAS M.D. ON: May 11 2017 4:05P Attending: DENG JACOBSON Requesting: NADIA BROWN Requesting Attending Attending ID: [id number] Requesting ID: [id number] Report To 1 ID: [id number] Report To 1 Name: DENG JACOBSON Report To 1 FAX: [phone] Report To 2 ID: Report To 2 Name: , Report To 2 FAX: -- NextGen Order #: Procedure Note Miscellaneous, Not In File / Provider, MD Keren - 05/11/2017 Acc#: [id number] JOSE RAUL 0015 - Diag Mamm BI [...] M.D. TECHNOLOGIST: SHANE DUMONT TECHNOLOGIST MEDICAL IMAGING INTERVENTIONAL CARDIOLOGIST: NURIA TRANSCRIBE DATE/TIME: May 11 2017 4:05P RADIOLOGIST: MARJORIE FRIAS M.D. READ ON: May 10 2017 3:22P ORDERING DR: NADIA BROWN M.D. THIS DOCUMENT HAS BEEN ELECTRONICALLY SIGNED BY: MARJORIE FRIAS M.D. ON: May 11 2017 4:05P Attending: DENG JACOBSON Requesting: NADIA BROWN Requesting Attending Attending ID: [id number] Requesting ID: [id number] Report To 1 ID: [id number] Report To 1 Name: DENG JACOBSON Report To 1 FAX: [phone] Report To 2 ID: Report To 2 Name: , Report To 2 FAX: -- NextGen Order #: Nadia Brown MD IMG MAMMO PROCEDURES E dited Result - Final from Last 3 Months or Most Recently Relevant to Health Maintenance Additional Health Concerns Infection Onset Date Last Indicated MDR gram neg/ESBL Comment:ESBL E.coli urine 11/07/17, 11/15/17, 04/16/18, 02/21/19 11/07/2017 02/21/2019 Insurance * Guarantor: Misti Golden Account Type Relation to Patient Date of Phone Billing Address Personal/Family Self [address] [place] [address] IDPA MEDICARE [facility] CLAIMS OFFICE [facility] MEDICARE [place] [address] [place] [address] [facility] MEDICARE ADVANTAGE IDPA [facility] MEDICARE ADVANTAGE Advance Directives For more information, please contact: [phone] * Full Code (Latest Code Status on File) Date Activated Date Inactivated Comments 02/03/2023 7:52 PM 02/05/2023 5:54 PM * Full Code Date Activated Date Inactivated Comments 04/19/2018 11:35 AM 04/20/2018 8:58 PM * Full Code Date Activated Date Inactivated Comments 02/03/2018 12:56 AM 02/04/2018 7:24 PM Care Teams Director Of Online Education Relationship Specialty Start Date End Date Madhu Tilley MD PCP - General 07/04/20 Kit Jonas MD Surgeon General Surgery 02/04/18
--- OUTSIDE RECORDS SUMMARY | 2024-12-22 19:58 | XMS_ITS | Clinical Summary ---
Author Organization [facility] Address [address] [address] Care Team Providers Care Vending Machine Assembler Name Role Phone Madhu Tilley MD Primary Care Provider [phone] Source Comments [facility],non-owned Affiliates and Associated Physician Practices is amultiple site organization consisting of ambulatory clinics and hospital sitesin [place], [place], [place] and [place]. This disclosure is being madepursuant to the Care Everywhere program and may not contain all information available regarding this patient. Last updated 18.[facility] Allergies Active Allergy Reactions Criticality Noted Date [...] vitamin D, ergocalciferol , (Drisdol) 1.25 MG (25125 UT) capsule Take 1 (one) capsule by [...] fluticasone propionate (Flonase) 50 MCG/ACT nasal spray [place] 2 (two) sprays into each nostril once [...] and heating? Not hard at all 03/30/2023 [facility] - Occupational [...] place to sleep or slept in a fci (including now)? No 03/30/2023 Comments No Sex and Gender Information Value Date Recorded Sex Assigned at Female Legal Sex Female 10:00 AM AVIATION TECHNICAL SYSTEMS SPECIALIST Gender Identity Female Sexual Orientation Straight Last [...] this topic Medical Devices Implanted Type Area Facilities Custodian Device Identifier Shelf Expiration Date Model / Serial / Lot Graft Tissue Nushield 3x2cm [facility] - [id number] Implanted:Qty: 1 on 10/22/2021 by Ramone Galloway MD at [facility] N/A: Back [employer] 05/05/2025 NO-1230 / [id number] / Procedures Procedure Name Priority Date/Time Associated Diagnosis Comments BASIC METABOLIC PANEL (CALCIUM TOTAL) Routine 04/03/2023 3:08 AM CDT HEPATITIS SCREEN ACUTE Routine 02/21/2021 3:19 AM CDT HIV-1 HIV-2 ANTIGEN/ANTIBODY STAT 10/13/2018 11:33 AM AVIATION TECHNICAL SYSTEMS SPECIALIST LIPID PROFILE Routine 09/22/2013 2:15 PM AVIATION TECHNICAL SYSTEMS SPECIALIST Major Depressive Disorder, Recurrent Episode, Mild from [...] - 10.4 mg/dL 04/03/2023 4:27 AM CDT [facility] Anion Gap 8 6 - 16 mmol/L 04/03/2023 4:27 AM CDT [facility] BUN 16 7 - 26 mg/dL 04/03/2023 4:27 AM CDT [facility] Creatinine 0.69 0.57 - 1.11 mg/dL 04/03/2023 4:27 AM CDT [facility] eGFR by CKD-EPI >90 >=90 mL/min/1.7 3 m2 04/03/2023 4:27 AM CDT [facility] Blood BLOOD SPECIMEN / Unknown Venipuncture / Unknown 04/03/2023 3:08 AM CDT 04/03/2023 4:09 AM CDT us Jacqueline Jerome SLIVER LAP TENDER-TRAVELING STOREKEEPER LAB - CHEMISTRY O RDERABLES Final Result Performing Organization Address [facility] de Phone Number [facility] [address] [place] [address] * HEPATITIS SCREEN ACUTE (02/21/2021 3:19 AM CDT) Pathologist [facility] HAV Antibody IgM Non Reactive Non Reactive 02/21/2021 4:52 AM CDT [facility] HBsAg Non Reactive Non Reactive 02/21/2021 4:52 AM CDT [facility] HBc Antibody IgM Non Reactive Non Reactive 02/21/2021 4:52 AM CDT [facility] HCV Antibody Screen Non Reactive Non Reactive 02/21/2021 4:52 AM CDT [facility] Blood BLOOD SPECIMEN / Unknown Venipuncture / Unknown 02/21/2021 3:19 AM CDT 02/21/2021 4:01 AM CDT Narrative [facility] - 02/21/2021 4:52 AM CDT Non Reactive - Antibodies to Hepatitis C virus (HCV) were not detected, result does not exclude early acute HCV infection. us Rylie Villalobos MD LAB - CHEMISTRY ORDERABLES Final Result Performing Organization Address [facility] de Phone Number [facility] [address] [place] [address] * HIV-1 HIV-2 ANTIGEN/ANTIBODY (10/13/2018 11:33 AM AVIATION TECHNICAL SYSTEMS SPECIALIST) [facility] HIV Antigen/Antibod y 1 & 2 Non-reacti ve Non-react fredrick 10/13/2018 12:39 PM AVIATION TECHNICAL SYSTEMS SPECIALIST [facility] Comment: Neither HIV-1 p24 Antigen nor HIV-1/HIV-2 Antibodies are detected. Blood BLOOD SPECIMEN / Unknown Venipuncture / Unknown 10/13/2018 11:33 AM AVIATION TECHNICAL SYSTEMS SPECIALIST 10/13/2018 11:45 AM AVIATION TECHNICAL SYSTEMS SPECIALIST us Scott Chun MD LAB - HEMATOLOGY ORDERABLES F inal Result [facility] [address] [place] [address], [facility] [phone] * LIPID PROFILE (09/22/2013 2:15 PM AVIATION TECHNICAL SYSTEMS SPECIALIST) [facility] Cholesterol 149 <200 mg/dL 09/22/2013 3:18 PM AVIATION TECHNICAL SYSTEMS SPECIALIST [facility] Triglycerides 79 <150 mg/dL 09/22/2013 3:18 PM AVIATION TECHNICAL SYSTEMS SPECIALIST [facility] HDL Cholesterol 66 >40 mg/dL 4 3:18 PM [facility] Chol HDL Ratio 2.3 1.0 - 6.0 09/22/2013 3:18 PM AVIATION TECHNICAL SYSTEMS SPECIALIST [facility] LDL Calculated 67 65 - 130 mg/dL 09/22/2013 3:18 PM AVIATION TECHNICAL SYSTEMS SPECIALIST [facility] VLDL Calculated 16 10 - 40 mg/dL 09/22/2013 3:18 PM AVIATION TECHNICAL SYSTEMS SPECIALIST [facility] Blood BLOOD SPECIMEN / Unknown Venipuncture / Unknown 09/22/2013 2:15 PM AVIATION TECHNICAL SYSTEMS SPECIALIST 09/22/2013 2:29 PM AVIATION TECHNICAL SYSTEMS SPECIALIST Narrative [facility] - 09/22/2013 3:18 PM AVIATION TECHNICAL SYSTEMS SPECIALIST Lipid Profile Comment: CHOLESTEROL LEVEL..................CLINICAL INTERPRETATION LESS [...] [facility] - CHEMISTRY ORDERABLES Final Result [facility] [address] from Last 3 Months or Most Recently Relevant to Health Maintenance Additional Health Concerns Infection Onset Date Last Indicated ESBL Hx Comment:urine 11/08/2018 03/16/2023 [place] [address] [facility] MANAGED MEDICARE ADV MEDICAID - [place] * Guarantor: PRASHANT FARLEY Account Type Relation to Patient Date of Phone Billing Address Personal/Family 1970 [address] [place] [address] Advance Directives * Full Code (Latest Code [...] 12:36 PM 09/17/2022 2:57 PM Care Teams Vending Machine Assembler Relationship Specialty Start Date End Date Madhu Tilley MD [address] [place] [address] PCP - General Internal Medicine 03/17/23
--- NOTE | 2024-12-22 20:02 | ED_ITS ---
HPI - Female Genitourinary General Chief complaint: Urogenital-Female Stated complaint: kidney stone Time Seen by Provider: 12/22/24 19:30 History of Present Illness HPI Narrative: Patient is a 54-year-old female who presents to the ER with lower abdominal pain and bilateral flank pain. She reports she was here 2 days ago and was told she has a 3 mm stone in her kidney. Patient reports she has a urologist, Dr. Mcdaniels, but she has not seen him since her most recent diagnosis. She reports she has been taking Flomax at home, along with [place], with minimal relief. Patient endorses significant nausea and vomiting that started this morning. She also reports that her urine has become more red and dark and she is producing less urine. Patient denies any chest pain, shortness of breath, or recent fevers. Related Data Home Medications Medication Instructions Recorded Confirmed Last Taken Type levetiracetam 1,000 mg tablet 1,000 mg PO Q12H 11/21/20 12/23/24 12/22/24 09:00 History topiramate 100 mg tablet 100 mg PO BID 07/14/22 12/23/24 12/22/24 09:00 History phentermine 15 mg capsule 15 mg PO DAILY 06/05/24 12/23/24 12/22/24 09:00 History apixaban 5 mg tablet (Eliquis) 5 mg PO .Twice Daily 12/23/24 12/23/24 Unknown History tizanidine 4 mg tablet 4 mg PO QID PRN muscle spasticity 12/23/24 12/23/24 Unknown History Allergies Allergy/AdvReac Type Severity Reaction Status Date / Time esomeprazole Allergy Unknown Hives Verified 12/23/24 03:34 iodine Allergy Unknown Swelling Verified 12/23/24 03:34 of Lip/Tongue/Throat ketorolac (From Toradol) Allergy Hives Verified 12/23/24 03:34 Contrast Media Allergy Unknown Swelling Uncoded 12/23/24 03:34 of Lip/Tongue/Throat Review of Systems 2 Review of Systems: All systems reviewed & are unremarkable except as noted in HPI and below PMFSH Past Medical History Medical History Bulging disc L5-S1 Finger fracture DDD (degenerative disc disease) Arthritis Depression Anxiety Epilepsy Migraine Abnormal uterine bleeding UTI (urinary tract infection) Gallbladder disease Kidney stone Surgical History Surgical History History of ventral hernia repair History of back surgery Status post right foot surgery x2 H/O tubal ligation H/O: hysterectomy History of x4 History of urethral stent Rt H/O lithotripsy H/O resection of small bowel History of gastric bypass History of cholecystectomy Hx of tonsillectomy Family History Family History (Updated 12/23/24 @ 03:31 by Ifeanyi Sarkar RN) Mother Hypertension H/O heart artery stent Father Family history of diabetes mellitus in first degree relative Patient's father is Family history of chronic obstructive pulmonary disease, Onset Age: 71 Social History Social History Social History: Surrogate medical decision maker: Jonathan Golden, spouse. Code status: full code. Smoking status: Never smoker Second hand tobacco smoke exposure: No Alcohol intake: never Substance use: never Substance use type: does not use Do You Feel Safe in your Home?: Yes Lack of Transportation: No Lack of Food: Never True Current Housing: I Have Housing Concerned About Future Housing: No Difficulty Paying Gas/Electric Bills: No Difficulty Paying for Meds: No Currently Unemployed: No Education: Trade/Vocational Certificate Difficulty w/ Childcare or Family Care: No Additional living arrangements comments: The patient lives with her and 9-year-old son in [place]. Additional occupation/education comments: Disabled. Spiritual care concerns: No Exam 2 Narrative: GENERAL: Well appearing, well-nourished, non-toxic, in mild distress d/t pain and vomiting. HEAD: Normocephalic, atraumatic. NECK: Supple. No adenopathy, no masses. RESPIRATORY: Airway patent, respirations nonlabored. Clear to auscultation bilaterally, no rales, rhonchi, wheezing. CARDIOVASCULAR: Regular rate and rhythm without murmurs, rubs, or gallops. Peripheral pulses 2+ and equal bilaterally. ABDOMINAL: Soft, tender upper abdomen and lower abdomen, mildly distended, no hepatosplenomegaly. Normoactive BS. + emesis MUSCULOSKELETAL: Moves all extremities. Strength/ROM intact without gross deformities. SKIN: Warm, dry, normal color. No rashes. NEURO: A&O X3. Speech clear. Cranial nerves II-XII intact. No ataxic movements. PSYCHIATRIC: Appropriate mood and affect. Normal interaction. Course Vital Signs Vital signs: Vital Signs Temperature 36.7 C 12/22/24 19:24 Pulse Rate 100 12/22/24 19:24 Respiratory Rate 16 12/22/24 19:24 Blood Pressure 169/94 H 12/22/24 19:24 Pulse Oximetry 98 12/22/24 19:24 Oxygen Delivery Room Air 12/22/24 19:24 Temperature 36.6 C 12/23/24 04:18 Pulse Rate 89 12/23/24 04:18 Respiratory Rate 18 12/23/24 04:18 Blood Pressure 158/83 H 12/23/24 04:18 Pulse Oximetry 97 12/23/24 04:18 Oxygen Delivery Room Air 12/22/24 19:24 MDM - Female Genitourinary MDM Narrative Medical decision making narrative: Patient is a 54-year-old female who presents to the ER with lower abdominal pain and bilateral flank pain. She reports she was here 2 days ago and was told she has a 3 mm stone in her kidney. Patient reports she has a urologist, Dr. Mcdaniels, but she has not seen him since her most recent diagnosis. She reports she has been taking Flomax at home, along with [place], with minimal relief. Patient endorses significant nausea and vomiting that started this morning. She also reports that her urine has become more red and dark and she is producing less urine. Patient denies any chest pain, shortness of breath, or recent fevers. Labs Ordered: CBC, CMP, UA, UDS Imaging Ordered: CT abdomen pelvis, abdominal x-ray (post NG placement) Medications Ordered: 1 L normal saline IV bolus, Dilaudid 0.5 IV x2, Zofran 4 mg IV, Phenergan 12.5 mg IV Results: CT scan results Redemonstration of a right sided ureteral calculus with antegrade progression since prior study. Bilateral nonobstructing renal calculi. Redemonstration of postoperative change with findings to the left of midline suggesting a partial small bowel obstruction, as detailed above. Diagnosis: partial small bowel obstruction, Kidney stone nonobstructing Consults: general surgery (non-emergent), urology (non-emergent) Patient Education/Shared MDM: Results of lab work and imaging shared with patient. She endorses improvement of symptoms following medication administration. Patient will have an NG placed. 2300-Spoke with hospitalist, Dr. Garzon, who was in agreement with admitting patient to the hospital. General surgery and Urology will be consulted in the morning. Dr. Garzon in request patient received Phenergan IM for continued nausea control. Differential Diagnosis Differential diagnosis: Likely urinary tract infection and other (Urinary tract infection, kidney stone) Lab Data Attestation: I reviewed the patient's lab results. 12/22/24 20:06 12/22/24 20:06 Labs: Lab Results 12/22/24 12/22/24 Range/Units 20:06 21:06 WBC 6.6 (4.5-10.0) K/mm3 RBC 5.07 (4.2-5.4) M/mm3 Hgb 13.3 (12.0-15.0) g/dL Hct 43.6 (37.0-47.0) % MCV 86.0 (80-100) fl MCH 26.2 (26-34) pg MCHC 30.5 L (32-36) g/dl RDW 15.9 H (11.5-14.5) % Plt Count 272 (150-375) k/mm3 MPV 9.5 (7.4-10.4) fl Immature Gran % (Auto) 0.2 (0-0.5) % Neut % (Auto) 57.1 (45.5-73.1) % Lymph % (Auto) 33.6 (18.3-44.2) % [place] % (Auto) 7.3 (2.6-8.5) % Eos % (Auto) 1.2 (0-4.4) % Baso % (Auto) 0.6 (0.2-1.2) % Lymph # (Auto) 2.20 (0.9-3.2) K/mm3 [place] # (Auto) 0.5 (0.1-0.6) K/mm3 Eos # (Auto) 0.1 (0-0.3) K/mm3 Baso # (Auto) 0.0 (0.0-0.1) K/mm3 Abs Immat Gran (auto) 0.01 (0.00-0.031) K/mm3 Absolute Neuts (auto) 3.7 (1.3-6.7) K/mm3 Absolute Nucleated RBC 0.000 (0.0-0.012) K/mm3 Nucleated RBC % 0.0 (0.0-0.2) % Sodium 140 (137-145) mmol/L Potassium 4.3 (3.4-5.0) mmol/L Chloride 110 H (98-107) mmol/L Carbon Dioxide 23 (22-30) mmol/L Anion Gap 7 (4-12) mmol/L BUN 12 (7-17) mg/dL Creatinine 0.67 L (0.7-1.0) mg/dL Estim Creat Clear Calc 71 ml/min Estimated GFR > 60 (59 - ) Glucose 82 (65-110) mg/dL Calcium 9.2 (8.4-10.2) mg/dL Total Bilirubin 0.6 (0.2-1.3) mg/dL AST 39 H (14-36) U/L ALT 39 H (6-35) U/L Alkaline Phosphatase 112 (38-126) U/L Total Protein 7.0 (6.3-8.2) g/dL Albumin 4.3 (3.5-5.1) g/dL Urine Color Yellow (Yellow) Urine Appearance Clear (Clear) Urine pH 5.5 (5.0-9.0) Ur Specific [place] 1.022 (1.001-1.035) Urine Protein Negative (Negative) mg/dL Urine Glucose (UA) Negative (Negative) mg/dL Urine Ketones Negative (Negative) mg/dL Ur Blood (Man) 3+ H (Negative) Urine Nitrate Negative (Negative) Urine Bilirubin Negative (Negative) Urine Urobilinogen 1.0 (<2.0) mg/dL Leukocyte Esterase Rfl Negative (Negative) PATRICK/UL Urine RBC >100 H (0-2) /hpf Urine WBC 0-5 (0-3) /hpf Ur Squamous Epith Cells Occasional (Few) /hpf Urine Bacteria None seen /hpf Urine Casts 0-2 Urine Opiates Screen Positive A (Negative) Urine Methadone Screen Negative (Negative) Ur Barbiturates Screen Negative (Negative) Ur Phencyclidine Scrn Negative (Negative) Ur Amphetamine Screen Negative (Negative) U Benzodiazepines Scrn Negative (Negative) Urine Cocaine Screen Negative (Negative) U Cannabinoids Screen Negative (Negative) Imaging Data Attestation: I personally reviewed and interpreted this imaging study as follows: Radiologist's impression: Impressions Abdomen/Pelvis CT 12/22/24 21:06 IMPRESSION: Redemonstration of a right sided ureteral calculus with antegrade progression since prior study. Bilateral nonobstructing renal calculi. Redemonstration of postoperative change with findings to the left of midline suggesting a partial small bowel obstruction, as detailed above. Discharge Plan Discharge Clinical Impression: Small bowel obstruction, Bilateral kidney stones Patient Disposition: Still a Patient Condition: Stable
[2024-12-22 20:14] LABS: Basophils Percent Auto 0.6 % (0.2-1.2); Eosinophils Absolute Auto 0.1 K/mm3 (0-0.3); Eosinophils Percent Auto 1.2 % (0-4.4); Hematocrit 43.6 % (37.0-47.0); Hemoglobin 13.3 g/dL (12.0-15.0); Immature Granulocyte Absolute 0.01 K/mm3 (0.00-0.031); Immature Granulocyte Percent A 0.2 % (0-0.5); Lymphocytes Percent Auto 33.6 % (18.3-44.2); Mean Corpuscular HGB Conc 30.5 g/dl (32-36); Mean Corpuscular Hemoglobin 26.2 pg (26-34); Mean Platelet Volume 9.5 fl (7.4-10.4); Monocytes Absolute Auto 0.5 K/mm3 (0.1-0.6); Monocytes Percent Auto 7.3 % (2.6-8.5); Neutrophils Absolute Auto 3.7 K/mm3 (1.3-6.7); Neutrophils Percent Auto 57.1 % (45.5-73.1); Platelet Count Result 272 k/mm3 (150-375); Red Blood Count 5.07 M/mm3 (4.2-5.4); Red Cell Distribution Width 15.9 % (11.5-14.5); White Blood Count 6.6 K/mm3 (4.5-10.0)
[2024-12-22 20:24] LABS: Alanine Aminotransferase 39 U/L (6-35); Albumin Level 4.3 g/dL (3.5-5.1); Alkaline Phosphatase 112 U/L (38-126); Anion Gap 7 mmol/L (4-12); Aspartate Amino Transferase 39 U/L (14-36); Bilirubin,Total 0.6 mg/dL (0.2-1.3); Blood Urea Nitrogen 12 mg/dL (7-17); Calcium 9.2 mg/dL (8.4-10.2); Carbon Dioxide 23 mmol/L (22-30); Chloride 110 mmol/L (98-107); Estimated CRCL calculation 71 ml/min; Estimated Glomerular Filt Rate > 60; Glucose 82 mg/dL (65-110); Potassium 4.3 mmol/L (3.4-5.0); Sodium 140 mmol/L (137-145)
[2024-12-22] MEDS: SODIUM CHLORIDE 0.9% IV 1,000 ML 999 ML IV CONT (20:33)
[2024-12-22] MEDS: HYDROmorphone HCL INJ (*CRX) 2 MG/ML VIAL 0.5 MG IV PUSH ×2 (20:35→23:21)
--- NOTE | 2024-12-22 20:41 | PC.NURSE ---
Patients urine sample was not secured in the bag and leaked out.Aware of need for additional urine sample
[2024-12-22 21:17] LABS: Add Urine Microscopic? YES; Appearance Urine Clear (Clear); Bacteria Urine None Seen /hpf; Bilirubin Urine Negative (Negative); Blood Urine 3+ (Negative); Color Urine Yellow (Yellow); Glucose Urine UA Negative (Negative); Ketones Urine Negative (Negative); Leukocyte Esterase Ur Negative LEU/UL (Negative); Nitrate Urine Negative (Negative); Non Pathogenic Casts 0-2; Protein Urine Negative (Negative); RBC Urine >100 /hpf (0-2); Specific Grav Ur 1.022 (1.001-1.035); Squamous Epithelial Cell Urine Occasional /hpf (Few); WBC Urine 0-5 /hpf (0-3); pH Urine 5.5 (5.0-9.0)
[2024-12-22 21:28] LABS: Amphetamine Screen Urine Negative (Negative); Barbiturate Screen Urine Negative (Negative); Benzodiazepines Screen Urine Negative (Negative); Cannabinoid Screen Urine Negative (Negative); Cocaine Screen Urine Negative (Negative); Methadone Screen Urine Negative (Negative); Opiate Screen Urine Positive (Negative); Phencyclidine Screen Urine Negative (Negative)
[2024-12-22] MEDS: ONDANSETRON INJ 4 MG/2 ML VIAL IV PUSH (21:59)
[2024-12-22] MEDS: PROMETHAZINE HCL 25 MG/ML AMPUL 12.5 MG IV PUSH (23:25)
[2024-12-23] VITALS (11 sets, daily range): BP systolic 149–158; BP diastolic 83–96; PULSE 89–101; RESP 16–18; TEMP 36.6–37.1; O2SAT 94–100; BMI 31.4
[2024-12-23] MEDS: SODIUM CHLORIDE 0.9% IV 1,000 ML 125 ML IV CONT ×3 (02:11→19:57)
[2024-12-23] MEDS: HYDROmorphone HCL INJ (*CRX) 2 MG/ML VIAL 1 MG IV PUSH ×6 (02:11→22:16)
--- NOTE | 2024-12-23 03:04 | PC.NURSE ---
This patient, Misti Golden, was admitted to Medical Room 342-01. Patient/family oriented to hospital policies and general routines including ID bracelet, bed and alarms, visiting hours, pain management, procedures, bathroom and other care routines, personal items, smoking policy, room service/diet, and visiting hours. Information on how to activate the Rapid Response Team has been discussed. Patient/Family are encouraged to report perceived risks to care and to ask questions if they do not understand what they are told or what they should do.
[2024-12-23] MEDS: PROMETHAZINE HCL 25 MG/ML AMPUL IM ×3 (06:39→22:17)
--- NOTE | 2024-12-23 07:44 | P.HP_ITS ---
H&P: HPI History of Present Illness Date/Time: 12/23/24 07:44 Chief Complaint: abd pain Narrative: Patient is a 54-year-old female with PMH/of RUE dvt in july, migrain headache, thyroid nodule, abd uterine bleeding, anxiety/depression, arthritis, epilepsy, gallbladder disease, kidney stone admitted for lower abdominal pain and bilateral flank pain. She reports she was here 2 days ago and was told she has a 3 mm stone in her kidney. She had been taking Flomax at home, along with [place], with minimal relief. Patient reports significant nausea and vomiting that started this morning. She also reports that her urine has become more red and dark . Patient denies any chest pain, shortness of breath, or recent fevers. In ED: CBC, CMP, UA, UDS CT abdomen pelvis, abdominal x-ray (post NG placement) 1 L normal saline IV bolus, Dilaudid 0.5 IV x2, Zofran 4 mg IV, Phenergan 12.[address] scan results Redemonstration of a right sided ureteral calculus with antegrade progression since prior study. Bilateral nonobstructing renal calculi. Redemonstration of postoperative change with findings to the left of midline suggesting a partial small bowel obstruction, as detailed above. Surgery consulted for small bowel obstructions, and urology consulted for kidney stone. Pt is still on eliquis for rt arm dvt in July-never had any f/u testing. NOn smoker, non drinker. Review of Systems Review of Systems: All systems reviewed & are unremarkable except as noted in HPI and below (h/p) PMFSH Past Medical History Medical History Bulging disc L5-S1 Finger fracture DDD (degenerative disc disease) Arthritis Depression Anxiety Epilepsy Migraine Abnormal uterine bleeding UTI (urinary tract infection) Gallbladder disease Kidney stone Surgical History Surgical History History of ventral hernia repair History of back surgery Status post right foot surgery x2 H/O tubal ligation H/O: hysterectomy History of x4 History of urethral stent Rt H/O lithotripsy H/O resection of small bowel History of gastric bypass History of cholecystectomy Hx of tonsillectomy Family History Family History Mother Hypertension H/O heart artery stent Father Family history of diabetes mellitus in first degree relative Patient's father is Family history of chronic obstructive pulmonary disease, Onset Age: 71 Social History Social History Social History: Surrogate medical decision maker: Jonathan Golden, spouse. Code status: full code. Smoking status: Never smoker Second hand tobacco smoke exposure: No Alcohol intake: never Substance use: never Substance use type: does not use Do You Feel Safe in your Home?: Yes Lack of Transportation: No Lack of Food: Never True Current Housing: I Have Housing Concerned About Future Housing: No Difficulty Paying Gas/Electric Bills: No Difficulty Paying for Meds: No Currently Unemployed: No Education: Trade/Vocational Certificate Difficulty w/ Childcare or Family Care: No Additional living arrangements comments: The patient lives with her and 9-year-old son in [place]. Additional occupation/education comments: Disabled. Spiritual care concerns: No Meds Home Medications and Allergies Home Medications Medication Instructions Recorded Confirmed Type levetiracetam 1,000 mg tablet 1,000 mg PO Q12H 11/21/20 12/23/24 History topiramate 100 mg tablet 100 mg PO BID 07/14/22 12/23/24 History phentermine 15 mg capsule 15 mg PO DAILY 06/05/24 12/23/24 History hydrocodone 5 mg-acetaminophen 325 1 tablet PO Q6H PRN pain #5 tabs 11/15/24 12/23/24 Rx mg tablet hydrocodone 5 mg-acetaminophen 325 1 tablet PO Q6H PRN pain #20 tabs 12/20/24 12/23/24 Rx mg tablet tamsulosin 0.4 mg capsule 0.4 mg PO DAILY 1 week #7 caps 12/20/24 12/23/24 Rx apixaban 5 mg tablet (Eliquis) 5 mg PO .Twice Daily 12/23/24 12/23/24 History tizanidine 4 mg tablet 4 mg PO QID PRN muscle spasticity 12/23/24 12/23/24 History Allergies Allergy/AdvReac Type Severity Reaction Status Date / Time esomeprazole Allergy Unknown Hives Verified 12/23/24 03:34 iodine Allergy Unknown Swelling Verified 12/23/24 03:34 of Lip/Tongue/Throat ketorolac (From Toradol) Allergy Hives Verified 12/23/24 03:34 Contrast Media Allergy Unknown Swelling Uncoded 12/23/24 03:34 of Lip/Tongue/Throat Vital Signs Vital Signs - 24 hr 12/22/24 19:24 12/22/24 21:21 12/22/24 21:27 Temperature 98.1 F Pulse Rate 100 75 Respiratory Rate 16 18 Blood Pressure 169/94 H 127/94 H 127/94 H Pulse Oximetry 98 98 98 Oxygen Delivery Room Air 12/22/24 21:31 12/22/24 22:01 12/22/24 22:57 Temperature Pulse Rate Respiratory Rate Blood Pressure 128/112 H 139/98 H 169/91 H Pulse Oximetry 100 100 100 Oxygen Delivery 12/22/24 22:58 12/22/24 23:01 12/22/24 23:29 Temperature Pulse Rate 85 Respiratory Rate 18 Blood Pressure 169/91 H 169/107 H 151/117 H Pulse Oximetry 100 100 100 Oxygen Delivery 12/22/24 23:31 12/22/24 23:32 12/22/24 23:45 Temperature Pulse Rate 98 Respiratory Rate 16 Blood Pressure 177/120 H Pulse Oximetry 100 99 99 Oxygen Delivery 12/23/24 00:21 12/23/24 00:30 12/23/24 00:45 Temperature Pulse Rate Respiratory Rate Blood Pressure Pulse Oximetry 94 100 100 Oxygen Delivery 12/23/24 01:00 12/23/24 01:15 12/23/24 03:00 Temperature Pulse Rate 89 Respiratory Rate 18 Blood Pressure Pulse Oximetry 100 100 97 Oxygen Delivery Room Air 12/23/24 04:18 Temperature 97.8 F Pulse Rate 89 Respiratory Rate 18 Blood Pressure 158/83 H Pulse Oximetry 97 Oxygen Delivery Exam Const: General: uncomfortable Other: nauseated Resp: Effort & Inspection: normal respiratory effort Auscultation: clear to auscultation bilaterally Cardio: Rate: regular rate Rhythm: regular rhythm GI: Inspection: distended GI Palp: Yes Tenderness to palpation present (GI) Auscultation: abnormal bowel sounds (diminished) Other: NG in place Neuro: Speech: normal speech Motor exam (neuro): 5/5 motor strength present throughout Sensory Exam: normal sensation Extrem: General: normal to inspection Psych: Affect: normal affect H&P: Results Labs Labs: Short CBC 12/22/24 Range/Units 20:06 WBC 6.6 (4.5-10.0) K/mm3 Hgb 13.3 (12.0-15.0) g/dL Hct 43.6 (37.0-47.0) % Plt Count 272 (150-375) k/mm3 BMP 12/22/24 20:06 Sodium 140 Potassium 4.3 Chloride 110 H Carbon Dioxide 23 BUN 12 Creatinine 0.67 L Glucose 82 Calcium 9.2 Liver Function 12/22/24 Range/Units 20:06 Total Bilirubin 0.6 (0.2-1.3) mg/dL AST 39 H (14-36) U/L ALT 39 H (6-35) U/L Alkaline Phosphatase 112 (38-126) U/L Albumin 4.3 (3.5-5.1) g/dL Urine 12/22/24 Range/Units 21:06 Urine Color Yellow (Yellow) Urine Appearance Clear (Clear) Urine pH 5.5 (5.0-9.0) Ur Specific [place] 1.022 (1.001-1.035) Urine Protein Negative (Negative) mg/dL Urine Glucose (UA) Negative (Negative) mg/dL Assessment and Plan Assessment and plan (1) Anxiety: Code(s): F41.9 - Anxiety disorder, unspecified Status: Acute (2) DVT (deep venous thrombosis): Code(s): I82.409 - Acute embolism and thrombosis of unspecified deep veins of unspecified lower extremity Status: Acute (3) Abnormal liver function test: Code(s): R79.89 - Other specified abnormal findings of blood chemistry Status: Acute (4) Small bowel obstruction: Code(s): K56.609 - Unspecified intestinal obstruction, unspecified as to partial versus complete obstruction Status: Acute (5) Bilateral kidney stones: Code(s): N20.0 - Calculus of kidney Status: Acute (6) Seizure disorder: Code(s): G40.909 - Epilepsy, unspecified, not intractable, without status epilepticus Status: Acute Plan 54 year old female well known to Dr. Mcdaniels with a long history of recurrent urolithiasis, many of which she passed spontaneously. She has been in the ER twice in the last 3 days with diffuse abdominal and pelvic pain, nausea and vomiting. She did notice some dark color urine. On 12/20/2024 she suspected she had a a small-bowel obstruction but CT imaging on that occasion showed a 2 mm right proximal ureteral stone. On 12/22/2024 imaging showed right sided proximal ureteral stone it progressed to the mid ureter and she now had findings of a partial small-bowel obstruction. NG tube has been placed. Surgery consulted. Will hold eliquis for now-as she should of been done with the therapy as her RUE dvt was in july. Will order doppler to f/u. Will continue Keppra IV for now. -need to stop topiramate due to h/o multiple kidney stones. SCD for now for DVT prophylaxis. Full code. Quality VTE Prophylaxis VTE prophylaxis: mechanical ordered Hospitalist MIPS Advance Care Plan I have confirmed that the patient's Advanced Care Plan is present, code status is documented, or surrogate decision maker is listed in patient medical record.: Yes Medication Reconciliation I have utilized all available resources to obtain, update and review the patients current medications (includes all prescriptions, OTC, herbals, cannabis, and nutritional supplements).: Yes
--- NOTE | 2024-12-23 09:58 | P.CONUR_ITS ---
Assessment and Plan Assessment and plan (1) Right ureteral stone: Code(s): N20.1 - Calculus of ureter Status: Acute (2) Bilateral kidney stones: Code(s): N20.0 - Calculus of kidney Status: Acute Assessment and Plan: * 2 mm right mid ureteral stone with minimal hydronephrosis. This is likely to pass spontaneously and in unlikely to be contributing significantly to her overall clinical picture * Follow conservatively for now without plans for intervention Urology Consult Note HPI Date Seen: 12/23/24 Requesting Physician: Ivonne Garzon DO Primary Care Provider: Madhu Tilley MD Consult Narrative Narrative: Misti Golden is a 54 year old female well known to Dr. Mcdaniels with a long history of recurrent urolithiasis, many of which she passed spontaneously. She has been in the ER twice in the last 3 days with diffuse abdominal and pelvic pain, nausea and vomiting. She did notice some dark color urine. On 12/20/2024 she suspected she had a a small-bowel obstruction but CT imaging on that occasion showed a 2 mm right proximal ureteral stone. When she re- presented 12/22/2024 imaging showed her to mm right proximal ureteral stone it progressed to the mid ureter and she now had findings of a partial small-bowel obstruction. NG tube has been placed and she is feeling better. She denies significant flank pain this time Review of Systems 2 Review of Systems: All systems reviewed & are unremarkable except as noted in HPI and below PMFSH Past Medical History Medical History Bulging disc L5-S1 Finger fracture DDD (degenerative disc disease) Arthritis Depression Anxiety Epilepsy Migraine Abnormal uterine bleeding UTI (urinary tract infection) Gallbladder disease Kidney stone Surgical History Surgical History History of ventral hernia repair History of back surgery Status post right foot surgery x2 H/O tubal ligation H/O: hysterectomy History of x4 History of urethral stent Rt H/O lithotripsy H/O resection of small bowel History of gastric bypass History of cholecystectomy Hx of tonsillectomy Family History Family History (Updated 12/23/24 @ 03:31 by Ifeanyi Sarkar RN) Mother Hypertension H/O heart artery stent Father Family history of diabetes mellitus in first degree relative Patient's father is Family history of chronic obstructive pulmonary disease, Onset Age: 71 Social History Social History Social History: Surrogate medical decision maker: Jonathan Golden, spouse. Code status: full code. Smoking status: Never smoker Second hand tobacco smoke exposure: No Alcohol intake: never Substance use: never Substance use type: does not use Do You Feel Safe in your Home?: Yes Lack of Transportation: No Lack of Food: Never True Current Housing: I Have Housing Concerned About Future Housing: No Difficulty Paying Gas/Electric Bills: No Difficulty Paying for Meds: No Currently Unemployed: No Education: Trade/Vocational Certificate Difficulty w/ Childcare or Family Care: No Additional living arrangements comments: The patient lives with her and 9-year-old son in [place]. Additional occupation/education comments: Disabled. Spiritual care concerns: No Meds Home Medications and Allergies Home Medications Medication Instructions Recorded Confirmed Type levetiracetam 1,000 mg tablet 1,000 mg PO Q12H 11/21/20 12/23/24 History topiramate 100 mg tablet 100 mg PO BID 07/14/22 12/23/24 History phentermine 15 mg capsule 15 mg PO DAILY 06/05/24 12/23/24 History hydrocodone 5 mg-acetaminophen 325 1 tablet PO Q6H PRN pain #5 tabs 11/15/24 12/23/24 Rx mg tablet hydrocodone 5 mg-acetaminophen 325 1 tablet PO Q6H PRN pain #20 tabs 12/20/24 12/23/24 Rx mg tablet tamsulosin 0.4 mg capsule 0.4 mg PO DAILY 1 week #7 caps 12/20/24 12/23/24 Rx apixaban 5 mg tablet (Eliquis) 5 mg PO .Twice Daily 12/23/24 12/23/24 History tizanidine 4 mg tablet 4 mg PO QID PRN muscle spasticity 12/23/24 12/23/24 History Allergies Allergy/AdvReac Type Severity Reaction Status Date / Time esomeprazole Allergy Unknown Hives Verified 12/23/24 03:34 iodine Allergy Unknown Swelling Verified 12/23/24 03:34 of Lip/Tongue/Throat ketorolac (From Toradol) Allergy Hives Verified 12/23/24 03:34 Contrast Media Allergy Unknown Swelling Uncoded 12/23/24 03:34 of Lip/Tongue/Throat Vital Signs Vital Signs - 24 hr 12/22/24 19:24 12/22/24 21:21 12/22/24 21:27 Temperature 98.1 F Pulse Rate 100 75 Respiratory Rate 16 18 Blood Pressure 169/94 H 127/94 H 127/94 H Pulse Oximetry 98 98 98 Oxygen Delivery Room Air 12/22/24 21:31 12/22/24 22:01 12/22/24 22:57 Temperature Pulse Rate Respiratory Rate Blood Pressure 128/112 H 139/98 H 169/91 H Pulse Oximetry 100 100 100 Oxygen Delivery 12/22/24 22:58 12/22/24 23:01 12/22/24 23:29 Temperature Pulse Rate 85 Respiratory Rate 18 Blood Pressure 169/91 H 169/107 H 151/117 H Pulse Oximetry 100 100 100 Oxygen Delivery 12/22/24 23:31 12/22/24 23:32 12/22/24 23:45 Temperature Pulse Rate 98 Respiratory Rate 16 Blood Pressure 177/120 H Pulse Oximetry 100 99 99 Oxygen Delivery 12/23/24 00:21 12/23/24 00:30 12/23/24 00:45 Temperature Pulse Rate Respiratory Rate Blood Pressure Pulse Oximetry 94 100 100 Oxygen Delivery 12/23/24 01:00 12/23/24 01:15 12/23/24 03:00 Temperature Pulse Rate 89 Respiratory Rate 18 Blood Pressure Pulse Oximetry 100 100 97 Oxygen Delivery Room Air 12/23/24 04:18 Temperature 97.8 F Pulse Rate 89 Respiratory Rate 18 Blood Pressure 158/83 H Pulse Oximetry 97 Oxygen Delivery Exam 2 Const: General: no acute distress Resp: Effort & Inspection: normal respiratory effort GI: Inspection: non-distended GI Palp: No abdominal tenderness and No Guarding due to palpation present (GI) Auscultation: normal bowel sounds Results Labs 12/22/24 20:06 12/22/24 20:06 Labs: Short CBC 12/22/24 Range/Units 20:06 WBC 6.6 (4.5-10.0) K/mm3 Hgb 13.3 (12.0-15.0) g/dL Hct 43.6 (37.0-47.0) % Plt Count 272 (150-375) k/mm3 BMP 12/22/24 20:06 Sodium 140 Potassium 4.3 Chloride 110 H Carbon Dioxide 23 BUN 12 Creatinine 0.67 L Glucose 82 Calcium 9.2 Liver Function 12/22/24 Range/Units 20:06 Total Bilirubin 0.6 (0.2-1.3) mg/dL AST 39 H (14-36) U/L ALT 39 H (6-35) U/L Alkaline Phosphatase 112 (38-126) U/L Albumin 4.3 (3.5-5.1) g/dL Urine 12/22/24 Range/Units 21:06 Urine Color Yellow (Yellow) Urine Appearance Clear (Clear) Urine pH 5.5 (5.0-9.0) Ur Specific [place] 1.022 (1.001-1.035) Urine Protein Negative (Negative) mg/dL Urine Glucose (UA) Negative (Negative) mg/dL
--- NOTE | 2024-12-23 12:41 | PM.CNGS ---
Assessment and Plan Assessment and plan (1) Small bowel obstruction: Code(s): K56.609 - Unspecified intestinal obstruction, unspecified as to partial versus complete obstruction Status: Acute Assessment and Plan: Exam largely benign but no bowel function, continue conservative management with NG tube decompression and bowel rest, will get a small-bowel series for further evaluation History of Present Illness Consult details Consult date: 12/23/24 Reason for consult: abdominal pain Requesting physician: Ivonne Garzon DO Narrative: The patient is a 54-year-old female presenting to the hospital complaining of crampy abdominal pain. The patient reports decreased appetite, nausea associated with the pain. The patient reports that the pain has been progressively worsening over the last week or so. The patient reports that she has had multiple small-bowel obstructions in the past and this feels similar to previous episodes. The patient reports a history of gastric bypass and subsequent reversal. Workup in the emergency department, including imaging, is significant for partial small bowel obstruction, kidney stones. The patient does report a history of kidney stones and reports some mild flank pain as well. Review of Systems Review of Systems: All systems reviewed & are unremarkable except as noted in HPI and below PMFSH Past Medical History Medical History Bulging disc L5-S1 Finger fracture DDD (degenerative disc disease) Arthritis Depression Anxiety Epilepsy Migraine Abnormal uterine bleeding UTI (urinary tract infection) Gallbladder disease Kidney stone Surgical History Surgical History History of ventral hernia repair History of back surgery Status post right foot surgery x2 H/O tubal ligation H/O: hysterectomy History of x4 History of urethral stent Rt H/O lithotripsy H/O resection of small bowel History of gastric bypass History of cholecystectomy Hx of tonsillectomy Family History Family History Mother Hypertension H/O heart artery stent Father Family history of diabetes mellitus in first degree relative Patient's father is Family history of chronic obstructive pulmonary disease, Onset Age: 71 Social History Social History Social History: Surrogate medical decision maker: Jonathan Golden, spouse. Code status: full code. Smoking status: Never smoker Second hand tobacco smoke exposure: No Alcohol intake: never Substance use: never Substance use type: does not use Do You Feel Safe in your Home?: Yes Lack of Transportation: No Lack of Food: Never True Current Housing: I Have Housing Concerned About Future Housing: No Difficulty Paying Gas/Electric Bills: No Difficulty Paying for Meds: No Currently Unemployed: No Education: Trade/Vocational Certificate Difficulty w/ Childcare or Family Care: No Additional living arrangements comments: The patient lives with her and 9-year-old son in [place]. Additional occupation/education comments: Disabled. Spiritual care concerns: No Meds Home Medications and Allergies Home Medications Medication Instructions Recorded Confirmed Type levetiracetam 1,000 mg tablet 1,000 mg PO Q12H 11/21/20 12/23/24 History topiramate 100 mg tablet 100 mg PO BID 07/14/22 12/23/24 History phentermine 15 mg capsule 15 mg PO DAILY 06/05/24 12/23/24 History hydrocodone 5 mg-acetaminophen 325 1 tablet PO Q6H PRN pain #5 tabs 11/15/24 12/23/24 Rx mg tablet hydrocodone 5 mg-acetaminophen 325 1 tablet PO Q6H PRN pain #20 tabs 12/20/24 12/23/24 Rx mg tablet tamsulosin 0.4 mg capsule 0.4 mg PO DAILY 1 week #7 caps 12/20/24 12/23/24 Rx apixaban 5 mg tablet (Eliquis) 5 mg PO .Twice Daily 12/23/24 12/23/24 History tizanidine 4 mg tablet 4 mg PO QID PRN muscle spasticity 12/23/24 12/23/24 History Allergies Allergy/AdvReac Type Severity Reaction Status Date / Time esomeprazole Allergy Unknown Hives Verified 12/23/24 03:34 iodine Allergy Unknown Swelling Verified 12/23/24 03:34 of Lip/Tongue/Throat ketorolac (From Toradol) Allergy Hives Verified 12/23/24 03:34 Contrast Media Allergy Unknown Swelling Uncoded 12/23/24 03:34 of Lip/Tongue/Throat Vital Signs Vital Signs - 24 hr 12/22/24 19:24 12/22/24 21:21 12/22/24 21:27 Temperature 36.7 C Pulse Rate 100 75 Respiratory Rate 16 18 Blood Pressure 169/94 H 127/94 H 127/94 H Pulse Oximetry 98 98 98 Oxygen Delivery Room Air 12/22/24 21:31 12/22/24 22:01 12/22/24 22:57 Temperature Pulse Rate Respiratory Rate Blood Pressure 128/112 H 139/98 H 169/91 H Pulse Oximetry 100 100 100 Oxygen Delivery 12/22/24 22:58 12/22/24 23:01 12/22/24 23:29 Temperature Pulse Rate 85 Respiratory Rate 18 Blood Pressure 169/91 H 169/107 H 151/117 H Pulse Oximetry 100 100 100 Oxygen Delivery 12/22/24 23:31 12/22/24 23:32 12/22/24 23:45 Temperature Pulse Rate 98 Respiratory Rate 16 Blood Pressure 177/120 H Pulse Oximetry 100 99 99 Oxygen Delivery 12/23/24 00:21 12/23/24 00:30 12/23/24 00:45 Temperature Pulse Rate Respiratory Rate Blood Pressure Pulse Oximetry 94 100 100 Oxygen Delivery 12/23/24 01:00 12/23/24 01:15 12/23/24 03:00 Temperature Pulse Rate 89 Respiratory Rate 18 Blood Pressure Pulse Oximetry 100 100 97 Oxygen Delivery Room Air 12/23/24 04:18 Temperature 36.6 C Pulse Rate 89 Respiratory Rate 18 Blood Pressure 158/83 H Pulse Oximetry 97 Oxygen Delivery Exam Const: General: cooperative, no acute distress and uncomfortable HENMT: Head: normal to inspection, normocephalic and atraumatic Eyes: General: appearance normal, both eyes and all related structures Neck: Neck: normal visual inspection and no lymphadenopathy Resp: Auscultation: clear to auscultation bilaterally Cardio: Rate: regular rate Rhythm: regular rhythm GI: Inspection: normal to inspection and distended GI Palp: No abdominal tenderness and Yes Soft to palpation Skin: General skin exam: normal color and no rashes or lesions noted Neuro: General: patient oriented x3 and CN's II-XI intact bilaterally Extrem: General: normal to inspection and full ROM Results Labs 12/22/24 20:06 12/22/24 20:06 Labs: Abnormal lab results 12/22/24 12/22/24 Range/Units 20:06 21:06 MCHC 30.5 L (32-36) g/dl RDW 15.9 H (11.5-14.5) % Chloride 110 H (98-107) mmol/L Creatinine 0.67 L (0.7-1.0) mg/dL AST 39 H (14-36) U/L ALT 39 H (6-35) U/L Ur Blood (Man) 3+ H (Negative) Urine RBC >100 H (0-2) /hpf Urine Opiates Screen Positive A (Negative) Diabetes panel 12/22/24 Range/Units 20:06 Sodium 140 (137-145) mmol/L Potassium 4.3 (3.4-5.0) mmol/L Chloride 110 H (98-107) mmol/L Carbon Dioxide 23 (22-30) mmol/L BUN 12 (7-17) mg/dL Creatinine 0.67 L (0.7-1.0) mg/dL Glucose 82 (65-110) mg/dL Calcium 9.2 (8.4-10.2) mg/dL AST 39 H (14-36) U/L ALT 39 H (6-35) U/L Alkaline Phosphatase 112 (38-126) U/L Total Protein 7.0 (6.3-8.2) g/dL Albumin 4.3 (3.5-5.1) g/dL Calcium panel 12/22/24 Range/Units 20:06 Calcium 9.2 (8.4-10.2) mg/dL Albumin 4.3 (3.5-5.1) g/dL Pituitary panel 12/22/24 Range/Units 20:06 Sodium 140 (137-145) mmol/L Potassium 4.3 (3.4-5.0) mmol/L Chloride 110 H (98-107) mmol/L Carbon Dioxide 23 (22-30) mmol/L BUN 12 (7-17) mg/dL Creatinine 0.67 L (0.7-1.0) mg/dL Glucose 82 (65-110) mg/dL Calcium 9.2 (8.4-10.2) mg/dL Adrenal panel 12/22/24 Range/Units 20:06 Sodium 140 (137-145) mmol/L Potassium 4.3 (3.4-5.0) mmol/L Chloride 110 H (98-107) mmol/L Carbon Dioxide 23 (22-30) mmol/L BUN 12 (7-17) mg/dL Creatinine 0.67 L (0.7-1.0) mg/dL Glucose 82 (65-110) mg/dL Calcium 9.2 (8.4-10.2) mg/dL Total Bilirubin 0.6 (0.2-1.3) mg/dL AST 39 H (14-36) U/L ALT 39 H (6-35) U/L Alkaline Phosphatase 112 (38-126) U/L Total Protein 7.0 (6.3-8.2) g/dL Albumin 4.3 (3.5-5.1) g/dL All other labs normal. Imaging Abdomen CT scan report/results: report reviewed and image reviewed
[2024-12-23] MEDS: levETIRAcetam 1000MG/NACL100ML 1,000 MG/100 ML BAG 400 MG IVPB ×2 (14:33→23:52)
[2024-12-23] MEDS: SALINE LOCK FLUSH 10 ML IV PUSH ×2 (14:35→22:17)
[2024-12-24] MEDS: HYDROmorphone HCL INJ (*CRX) 2 MG/ML VIAL 1 MG IV PUSH ×4 (02:21→21:08)
[2024-12-24] MEDS: SODIUM CHLORIDE 0.9% IV 1,000 ML 125 ML IV CONT (02:22)
[2024-12-24] MEDS: PROMETHAZINE HCL 25 MG/ML AMPUL IM ×3 (02:22→22:38)
[2024-12-24 05:39] VITALS: BP 151/91; PULSE 114; RESP 18; TEMP 36.8; O2SAT 100
[2024-12-24] MEDS: SALINE LOCK FLUSH 10 ML IV PUSH (05:42)
--- NOTE | 2024-12-24 07:50 | PM.IMPN ---
Progress Note: A&P Assessment and Plan (1) Anxiety: Code(s): F41.9 - Anxiety disorder, unspecified Status: Acute (2) DVT (deep venous thrombosis): Code(s): I82.409 - Acute embolism and thrombosis of unspecified deep veins of unspecified lower extremity Status: Acute (3) Abnormal liver function test: Code(s): R79.89 - Other specified abnormal findings of blood chemistry Status: Acute (4) Small bowel obstruction: Code(s): K56.609 - Unspecified intestinal obstruction, unspecified as to partial versus complete obstruction Status: Acute (5) Bilateral kidney stones: Code(s): N20.0 - Calculus of kidney Status: Acute (6) Seizure disorder: Code(s): G40.909 - Epilepsy, unspecified, not intractable, without status epilepticus Status: Acute Plan 54 year old female well known to Dr. Mcdaniels with a long history of recurrent urolithiasis, many of which she passed spontaneously. She has been in the ER twice in the last 3 days with diffuse abdominal and pelvic pain, nausea and vomiting. She did notice some dark color urine. On 12/20/2024 she suspected she had a a small-bowel obstruction but CT imaging on that occasion showed a 2 mm right proximal ureteral stone. On 12/22/2024 imaging showed right sided proximal ureteral stone it progressed to the mid ureter and she now had findings of a partial small-bowel obstruction. NG tube has been placed. Surgery consulted. Will hold eliquis for now-as she should of been done with the therapy as her RUE dvt was in july. Will order doppler to f/u. Will continue Keppra IV for now. -need to stop topiramate due to h/o multiple kidney stones. 12/24 Venous doppler completed- Negative right upper extremity venous US. No deep vein thrombosis. -no need to continue eliquis small-bowel series largely normal, exam unremarkable, per surgery: clamp NG tube and start sips of clears, if tolerates that after a couple hours okay to DC NG and start clears. NG removed at 1440 pt is doing well. advance diet slowly as directed per surgery SCD for now for DVT prophylaxis. Full code. Time Spent With Patient Time with patient: 25 - 35 minutes Subjective Date/time seen: 12/24/24 07:50 Interval history: Patient is a 54-year-old female with PMH/of RUE dvt in July, migraine headache, thyroid nodule, abd uterine bleeding, anxiety/depression, arthritis, epilepsy, gallbladder disease, kidney stone admitted for lower abdominal pain and bilateral flank pain. She reports she was here 2 days ago and was told she has a 3 mm stone in her kidney. She had been taking Flomax at home, along with [place], with minimal relief. Patient reports significant nausea and vomiting that started this morning. She also reports that her urine has become more red and dark . Patient denies any chest pain, shortness of breath, or recent fevers. NG clamped today- ok to advance to ice chips and clears if tolerates it. Urology following as well. Ng is removed around 1440 pt is doing well. advance diet slowly per surgery instructions. Review of Systems Review of Systems: All systems reviewed & are unremarkable except as noted in HPI and below (h/p) Exam Const: General: comfortable Resp: Effort & Inspection: normal respiratory effort Auscultation: clear to auscultation bilaterally Cardio: Rate: regular rate and tachycardic Rhythm: regular rhythm GI: GI Palp: Yes Soft to palpation Auscultation: normal bowel sounds Neuro: Speech: normal speech Motor exam (neuro): 5/5 motor strength present throughout Sensory Exam: normal sensation Extrem: General: normal to inspection Psych: Affect: normal affect Objective Data Vital Signs Vital Signs: Vital Signs - 24 hr 12/23/24 08:00 12/23/24 14:00 12/23/24 20:00 Temperature 98.3 F Pulse Rate 101 H Respiratory Rate 18 Blood Pressure 149/96 H Pulse Oximetry 100 100 100 Oxygen Delivery Room Air Room Air 12/23/24 20:43 12/24/24 05:39 Temperature 98.8 F 98.2 F Pulse Rate 93 114 H Respiratory Rate 16 18 Blood Pressure 152/83 H 151/91 H Pulse Oximetry 98 100 Oxygen Delivery Intake/Output Intake/Output: Intake & Output 12/21/24 12/22/24 12/23/24 12/24/24 23:59 23:59 23:59 23:59 Intake Total 2666.7 802.1 Output Total 200 Balance 2466.7 802.1 Meds/Results Medications: Active Medications Generic Name Dose Route Start Last Admin Trade Name Freq PRN Reason Stop Dose Admin Hydromorphone HCl 1 mg 12/23/24 00:33 12/24/24 05:39 Hydromorphone Hcl Inj (*Crx) 2 Mg/Ml Vial IV PUSH 1 mg Q3H PRN Administration Pain Rated 7-10 Sodium Chloride 1,000 mls @ 125 mls/hr 12/23/24 00:35 12/24/24 02:22 Normal Saline Iv IV CONT 125 mls/hr .Q8H DEANDRE Administration Levetiracetam 1,000 mg in 100 mls @ 400 mls/hr 12/24/24 00:00 12/23/24 23:52 Keppra Iv IVPB 400 mls/hr Q12HR DEANDRE Administration Promethazine HCl 25 mg 12/23/24 00:33 12/24/24 05:39 Promethazine Hcl 25 Mg/Ml Ampul IM 25 mg Q4H PRN Administration Nausea And Vomiting Sodium Chloride 10 ml 12/23/24 14:00 12/24/24 05:42 Saline Lock Flush IV PUSH 10 ml Q8HR DEANDRE Administration Sodium Chloride 10 ml 12/23/24 11:18 Saline Lock Flush IV PUSH PRN PRN Flush Sodium Chloride 20 ml 12/23/24 11:18 Saline Lock Flush IV PUSH PRN PRN after blood draws Radiology Results: ITS Impressions Abdomen/Pelvis CT 12/22/24 21:06 IMPRESSION: Redemonstration of a right sided ureteral calculus with antegrade progression since prior study. Bilateral nonobstructing renal calculi. Redemonstration of postoperative change with findings to the left of midline suggesting a partial small bowel obstruction, as detailed above. Upper GI and Small Bowel X-Ray 12/23/24 14:03 IMPRESSION: 1. No bowel obstruction with contrast passing through the normal caliber small bowel to the cecum by 30 minutes. 2. 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 Venous Doppler Study 12/23/24 17:00 IMPRESSION: Negative right upper extremity venous US. No deep vein thrombosis. Quality VTE Prophylaxis VTE prophylaxis: mechanical ordered
[2024-12-24 10:00] VITALS: O2SAT 98
[2024-12-24] MEDS: levETIRAcetam 1000MG/NACL100ML 1,000 MG/100 ML BAG 400 MG IVPB ×2 (10:03→20:53)
--- NOTE | 2024-12-24 10:27 | PM.PNGS ---
Progress Note: A&P Assessment and Plan (1) Small bowel obstruction: Code(s): K56.609 - Unspecified intestinal obstruction, unspecified as to partial versus complete obstruction Status: Acute Assessment and Plan: small-bowel series reviewed and largely normal, exam largely benign, we will clamp NG tube and start sips of clears, if tolerates that after a couple hours okay to DC NG and start clears Subjective Subjective Date/Time Seen: 12/24/24 10:27 Interval history: feels a little better this morning, thirsty but not hungry, + minimal flatus Review of Systems Review of Systems: All systems reviewed & are unremarkable except as noted in HPI and below Exam Const: General: cooperative, comfortable, no acute distress and ill appearing Resp: Auscultation: clear to auscultation bilaterally Cardio: Rate: regular rate Rhythm: regular rhythm GI: Inspection: normal to inspection and non-distended GI Palp: No abdominal tenderness and Yes Soft to palpation Objective Data Vital Signs Vital Signs: Vital Signs - 24 hr 12/23/24 14:00 12/23/24 20:00 12/23/24 20:43 Temperature 36.8 C 37.1 C Pulse Rate 101 H 93 Respiratory Rate 18 16 Blood Pressure 149/96 H 152/83 H Pulse Oximetry 100 100 98 Oxygen Delivery Room Air 12/24/24 05:39 Temperature 36.8 C Pulse Rate 114 H Respiratory Rate 18 Blood Pressure 151/91 H Pulse Oximetry 100 Oxygen Delivery Intake/Output Intake/Output: Intake & Output 12/21/24 12/22/24 12/23/24 12/24/24 23:59 23:59 23:59 23:59 Intake Total 2666.7 902.1 Output Total 200 Balance 2466.7 902.1 Meds/Results Medications: Active Medications Generic Name Dose Route Start Last Admin Trade Name Freq PRN Reason Stop Dose Admin Calcium Carbonate 200 mg 12/24/24 10:02 Calcium Carbonate (Tums) 500 Mg (200 Mg Elemental) PO Q6H PRN Indigestion Hydromorphone HCl 1 mg 12/23/24 00:33 12/24/24 05:39 Hydromorphone Hcl Inj (*Crx) 2 Mg/Ml Vial IV PUSH 1 mg Q3H PRN Administration Pain Rated 7-10 Sodium Chloride 1,000 mls @ 125 mls/hr 12/23/24 00:35 12/24/24 02:22 Normal Saline Iv IV CONT 125 mls/hr .Q8H DEANDRE Administration Levetiracetam 1,000 mg in 100 mls @ 400 mls/hr 12/24/24 00:00 12/24/24 10:03 Keppra Iv IVPB 400 mls/hr Q12HR DEANDRE Administration Promethazine HCl 25 mg 12/23/24 00:33 12/24/24 05:39 Promethazine Hcl 25 Mg/Ml Ampul IM 25 mg Q4H PRN Administration Nausea And Vomiting Sodium Chloride 10 ml 12/23/24 14:00 12/24/24 05:42 Saline Lock Flush IV PUSH 10 ml Q8HR DEANDRE Administration Sodium Chloride 10 ml 12/23/24 11:18 Saline Lock Flush IV PUSH PRN PRN Flush Sodium Chloride 20 ml 12/23/24 11:18 Saline Lock Flush IV PUSH PRN PRN after blood draws Radiology Results: ITS Impressions Abdomen/Pelvis CT 12/22/24 21:06 IMPRESSION: Redemonstration of a right sided ureteral calculus with antegrade progression since prior study. Bilateral nonobstructing renal calculi. Redemonstration of postoperative change with findings to the left of midline suggesting a partial small bowel obstruction, as detailed above. Upper GI and Small Bowel X-Ray 12/23/24 14:03 IMPRESSION: 1. No bowel obstruction with contrast passing through the normal caliber small bowel to the cecum by 30 minutes. 2. 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 Venous Doppler Study 12/23/24 17:00 IMPRESSION: Negative right upper extremity venous US. No deep vein thrombosis.
--- NOTE | 2024-12-24 11:11 | P.PNUR_ITS ---
Progress Note: A&P Assessment and Plan (1) Bilateral kidney stones: Code(s): N20.0 - Calculus of kidney Status: Acute (2) Right ureteral stone: Code(s): N20.1 - Calculus of ureter Status: Acute Assessment and Plan: * KUB today to check for right ureteral stone position * If flank pain/nausea and vomiting persist tomorrow without evidence of ongoing small bowel obstruction will consider repeat CT scan and possible endoscopic extraction early this week Subjective Subjective Date/Time Seen: 12/24/24 11:11 Interval history: Feeling better with only mild right flank pain and resolution of nausea/vomiting Review of Systems Cardiovascular: Cardiovascular: Denies chest pain, Denies lightheadedness, Denies palpitations and Denies dyspnea Respiratory: Respiratory: Denies dyspnea Gastrointestinal: Gastrointestinal: Denies diarrhea, Denies nausea and Denies vomiting Genitourinary: Genitourinary: Denies hematuria and Denies dysuria Endocrine: Endocrine: Denies palpitations Exam Const: General: no acute distress Resp: Effort & Inspection: normal respiratory effort GI: Inspection: non-distended GI Palp: No abdominal tenderness and No Guarding due to palpation present (GI) Auscultation: normal bowel sounds Objective Data Vital Signs Vital Signs: Vital Signs - 24 hr 12/23/24 14:00 12/23/24 20:00 12/23/24 20:43 Temperature 98.3 F 98.8 F Pulse Rate 101 H 93 Respiratory Rate 18 16 Blood Pressure 149/96 H 152/83 H Pulse Oximetry 100 100 98 Oxygen Delivery Room Air 12/24/24 05:39 Temperature 98.2 F Pulse Rate 114 H Respiratory Rate 18 Blood Pressure 151/91 H Pulse Oximetry 100 Oxygen Delivery Intake/Output Intake/Output: Intake & Output 12/21/24 12/22/24 12/23/24 12/24/24 23:59 23:59 23:59 23:59 Intake Total 2666.7 902.1 Output Total 200 Balance 2466.7 902.1 Meds/Results Medications: Active Medications Generic Name Dose Route Start Last Admin Trade Name Freq PRN Reason Stop Dose Admin Calcium Carbonate 200 mg 12/24/24 10:02 Calcium Carbonate (Tums) 500 Mg (200 Mg Elemental) PO Q6H PRN Indigestion Hydromorphone HCl 1 mg 12/23/24 00:33 12/24/24 05:39 Hydromorphone Hcl Inj (*Crx) 2 Mg/Ml Vial IV PUSH 1 mg Q3H PRN Administration Pain Rated 7-10 Sodium Chloride 1,000 mls @ 125 mls/hr 12/23/24 00:35 12/24/24 02:22 Normal Saline Iv IV CONT 125 mls/hr .Q8H DEANDRE Administration Levetiracetam 1,000 mg in 100 mls @ 400 mls/hr 12/24/24 00:00 12/24/24 10:03 Keppra Iv IVPB 400 mls/hr Q12HR DEANDRE Administration Promethazine HCl 25 mg 12/23/24 00:33 12/24/24 05:39 Promethazine Hcl 25 Mg/Ml Ampul IM 25 mg Q4H PRN Administration Nausea And Vomiting Sodium Chloride 10 ml 12/23/24 14:00 12/24/24 05:42 Saline Lock Flush IV PUSH 10 ml Q8HR DEANDRE Administration Sodium Chloride 10 ml 12/23/24 11:18 Saline Lock Flush IV PUSH PRN PRN Flush Sodium Chloride 20 ml 12/23/24 11:18 Saline Lock Flush IV PUSH PRN PRN after blood draws Radiology Results: ITS Impressions Abdomen/Pelvis CT 12/22/24 21:06 IMPRESSION: Redemonstration of a right sided ureteral calculus with antegrade progression since prior study. Bilateral nonobstructing renal calculi. Redemonstration of postoperative change with findings to the left of midline suggesting a partial small bowel obstruction, as detailed above. Upper GI and Small Bowel X-Ray 12/23/24 14:03 IMPRESSION: 1. No bowel obstruction with contrast passing through the normal caliber small bowel to the cecum by 30 minutes. 2. 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 Venous Doppler Study 12/23/24 17:00 IMPRESSION: Negative right upper extremity venous US. No deep vein thrombosis.
[2024-12-24] MEDS: CALCIUM CARBONATE (TUMS) 500 MG (200 MG ELEMENTAL) PO (11:27)
[2024-12-24] MEDS: SODIUM CHLORIDE 0.9% IV 1,000 ML 75 ML IV CONT ×2 (11:28→20:51)
[2024-12-24 14:58] VITALS: BP 158/82; PULSE 88; RESP 16; TEMP 36.8; O2SAT 98
[2024-12-24 20:00] VITALS: O2SAT 100
[2024-12-24 22:22] VITALS: BP 116/68; PULSE 106; RESP 18; TEMP 36.2; O2SAT 97
[2024-12-25] MEDS: HYDROmorphone HCL INJ (*CRX) 2 MG/ML VIAL 1 MG IV PUSH ×2 (00:33→05:38)
[2024-12-25] MEDS: PROMETHAZINE HCL 25 MG/ML AMPUL IM (05:34)
[2024-12-25 06:00] VITALS: BP 115/57; PULSE 96; RESP 20; TEMP 36.5; O2SAT 98
--- NOTE | 2024-12-25 06:21 | WPDUROPN2 ---
Progress Note: A&P Assessment and Plan (1) Right ureteral stone: Code(s): N20.1 - Calculus of ureter Status: Acute (2) Bilateral kidney stones: Code(s): N20.0 - Calculus of kidney Status: Acute Assessment and Plan: Unable to visualize right ureteral stone on KUB yesterday due to retained GI contrast Repeat noncontrast CT scan for stone position Subjective Subjective Date/Time Seen: 12/25/24 06:21 Interval history: Mild, nonspecific abdominal pain persists Review of Systems Review of Systems: All systems reviewed & are unremarkable except as noted in HPI and below Exam Const: General: no acute distress Resp: Effort & Inspection: normal respiratory effort GI: Inspection: non-distended GI Palp: No abdominal tenderness and No Guarding due to palpation present (GI) Auscultation: normal bowel sounds Objective Data Vital Signs Vital Signs: Vital Signs - 24 hr 12/24/24 10:00 12/24/24 14:58 12/24/24 20:00 Temperature 98.3 F Pulse Rate 88 Respiratory Rate 16 Blood Pressure 158/82 H Pulse Oximetry 98 98 100 Oxygen Delivery Room Air Room Air 12/24/24 22:22 Temperature 97.2 F L Pulse Rate 106 H Respiratory Rate 18 Blood Pressure 116/68 Pulse Oximetry 97 Oxygen Delivery Intake/Output Intake/Output: Intake & Output 12/22/24 12/23/24 12/24/24 12/25/24 23:59 23:59 23:59 23:59 Intake Total 2666.7 2825.8 Output Total 200 500 300 Balance 2466.7 2325.8 -300 Meds/Results Medications: Active Medications Generic Name Dose Route Start Last Admin Trade Name Freq PRN Reason Stop Dose Admin Calcium Carbonate 200 mg 12/24/24 10:02 12/24/24 11:27 Calcium Carbonate (Tums) 500 Mg (200 Mg Elemental) PO 200 mg Q6H PRN Administration Indigestion Hydromorphone HCl 1 mg 12/23/24 00:33 12/25/24 05:38 Hydromorphone Hcl Inj (*Crx) 2 Mg/Ml Vial IV PUSH 1 mg Q3H PRN Administration Pain Rated 7-10 Sodium Chloride 1,000 mls @ 75 mls/hr 12/23/24 00:35 12/24/24 20:51 Normal Saline Iv IV CONT 75 mls/hr .[id number] DEANDRE Administration Levetiracetam 1,000 mg in 100 mls @ 400 mls/hr 12/24/24 00:00 12/24/24 20:53 Keppra Iv IVPB 400 mls/hr Q12HR DEANDRE Administration Promethazine HCl 25 mg 12/23/24 00:33 12/25/24 05:34 Promethazine Hcl 25 Mg/Ml Ampul IM 25 mg Q4H PRN Administration Nausea And Vomiting Sodium Chloride 10 ml 12/23/24 14:00 12/24/24 21:04 Saline Lock Flush IV PUSH Not Given Q8HR DEANDRE Sodium Chloride 10 ml 12/23/24 11:18 Saline Lock Flush IV PUSH PRN PRN Flush Sodium Chloride 20 ml 12/23/24 11:18 Saline Lock Flush IV PUSH PRN PRN after blood draws Tamsulosin HCl 0.4 mg 12/25/24 09:00 Tamsulosin Hcl 0.4 Mg Capsule PO DAILY [facility] Radiology Results: ITS Impressions Abdomen/Pelvis CT 12/22/24 21:06 IMPRESSION: Redemonstration of a right sided ureteral calculus with antegrade progression since prior study. Bilateral nonobstructing renal calculi. Redemonstration of postoperative change with findings to the left of midline suggesting a partial small bowel obstruction, as detailed above. Upper GI and Small Bowel X-Ray 12/23/24 14:03 IMPRESSION: 1. No bowel obstruction with contrast passing through the normal caliber small bowel to the cecum by 30 minutes. 2. 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 Venous Doppler Study 12/23/24 17:00 IMPRESSION: Negative right upper extremity venous US. No deep vein thrombosis. Abdomen X-Ray 12/24/24 11:35 Impression: 1: Nonobstructive bowel gas pattern. Limited evaluation for renal/ureteral stones secondary to residual contrast in the colon.
[2024-12-25 08:00] VITALS: O2SAT 100
--- NOTE | 2024-12-25 08:58 | P.PNGS_ITS ---
Progress Note: A&P Assessment and Plan (1) Small bowel obstruction: Code(s): K56.609 - Unspecified intestinal obstruction, unspecified as to partial versus complete obstruction Status: Acute Assessment and Plan: resolving, advance diet as tolerated, cont serial exams Subjective Subjective Date/Time Seen: 12/25/24 08:58 Interval history: did well yesterday an NG was removed, overnight had more flank pain and nausea, +bowel fxn Review of Systems Review of Systems: All systems reviewed & are unremarkable except as noted in HPI and below Exam Const: General: cooperative, comfortable and no acute distress Resp: Auscultation: clear to auscultation bilaterally Cardio: Rate: regular rate Rhythm: regular rhythm GI: Inspection: normal to inspection and non-distended GI Palp: No abdominal tenderness and Yes Soft to palpation Objective Data Vital Signs Vital Signs: Vital Signs - 24 hr 12/24/24 10:00 12/24/24 14:58 12/24/24 20:00 Temperature 36.8 C Pulse Rate 88 Respiratory Rate 16 Blood Pressure 158/82 H Pulse Oximetry 98 98 100 Oxygen Delivery Room Air Room Air 12/24/24 22:22 12/25/24 06:00 Temperature 36.2 C L 36.5 C Pulse Rate 106 H 96 Respiratory Rate 18 20 Blood Pressure 116/68 115/57 L Pulse Oximetry 97 98 Oxygen Delivery Intake/Output Intake/Output: Intake & Output 12/22/24 12/23/24 12/24/24 12/25/24 23:59 23:59 23:59 23:59 Intake Total 2666.7 2825.8 500 Output Total 506 184 8600 Balance 2466.7 2325.8 -600 Meds/Results Medications: Active Medications Generic Name Dose Route Start Last Admin Trade Name Freq PRN Reason Stop Dose Admin Calcium Carbonate 200 mg 12/24/24 10:02 12/24/24 11:27 Calcium Carbonate (Tums) 500 Mg (200 Mg Elemental) PO 200 mg Q6H PRN Administration Indigestion Hydromorphone HCl 1 mg 12/23/24 00:33 12/25/24 05:38 Hydromorphone Hcl Inj (*Crx) 2 Mg/Ml Vial IV PUSH 1 mg Q3H PRN Administration Pain Rated 7-10 Sodium Chloride 1,000 mls @ 75 mls/hr 12/23/24 00:35 12/24/24 20:51 Normal Saline Iv IV CONT 75 mls/hr .[id number] DEANDRE Administration Levetiracetam 1,000 mg in 100 mls @ 400 mls/hr 12/24/24 00:00 12/24/24 20:53 Keppra Iv IVPB 400 mls/hr Q12HR DEANDRE Administration Promethazine HCl 25 mg 12/23/24 00:33 12/25/24 05:34 Promethazine Hcl 25 Mg/Ml Ampul IM 25 mg Q4H PRN Administration Nausea And Vomiting Sodium Chloride 10 ml 12/23/24 14:00 12/24/24 21:04 Saline Lock Flush IV PUSH Not Given Q8HR DEANDRE Sodium Chloride 10 ml 12/23/24 11:18 Saline Lock Flush IV PUSH PRN PRN Flush Sodium Chloride 20 ml 12/23/24 11:18 Saline Lock Flush IV PUSH PRN PRN after blood draws Tamsulosin HCl 0.4 mg 12/25/24 09:00 Tamsulosin Hcl 0.4 Mg Capsule PO DAILY [facility] Radiology Results: ITS Impressions Upper GI and Small Bowel X-Ray 12/23/24 14:03 IMPRESSION: 1. No bowel obstruction with contrast passing through the normal caliber small bowel to the cecum by 30 minutes. 2. 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 Venous Doppler Study 12/23/24 17:00 IMPRESSION: Negative right upper extremity venous US. No deep vein thrombosis. Abdomen X-Ray 12/24/24 11:35 Impression: 1: Nonobstructive bowel gas pattern. Limited evaluation for renal/ureteral stones secondary to residual contrast in the colon. Abdomen/Pelvis CT 12/25/24 07:38 Impression: Small bilateral nonobstructing renal stones. No hydronephrosis. Previously noted proximal right ureteral stone appears to been passed since prior exam, no longer visualized.
--- NOTE | 2024-12-25 10:13 | P.PNIM_ITS ---
Progress Note: A&P Assessment and Plan (1) Anxiety: Code(s): F41.9 - Anxiety disorder, unspecified Status: Acute (2) DVT (deep venous thrombosis): Code(s): I82.409 - Acute embolism and thrombosis of unspecified deep veins of unspecified lower extremity Status: Acute (3) Abnormal liver function test: Code(s): R79.89 - Other specified abnormal findings of blood chemistry Status: Acute (4) Small bowel obstruction: Code(s): K56.609 - Unspecified intestinal obstruction, unspecified as to partial versus complete obstruction Status: Acute (5) Bilateral kidney stones: Code(s): N20.0 - Calculus of kidney Status: Acute (6) Seizure disorder: Code(s): G40.909 - Epilepsy, unspecified, not intractable, without status epilepticus Status: Acute Plan 54 year old female well known to Dr. Mcdaniels with a long history of recurrent urolithiasis, many of which she passed spontaneously. She has been in the ER twice in the last 3 days with diffuse abdominal and pelvic pain, nausea and vomiting. She did notice some dark color urine. On 12/20/2024 she suspected she had a a small-bowel obstruction but CT imaging on that occasion showed a 2 mm right proximal ureteral stone. On 12/22/2024 imaging showed right sided proximal ureteral stone it progressed to the mid ureter and she now had findings of a partial small-bowel obstruction. NG tube has been placed. Surgery consulted. Will hold eliquis for now-as she should of been done with the therapy as her RUE dvt was in july. Will order doppler to f/u. Will continue Keppra IV for now. -need to stop topiramate due to h/o multiple kidney stones. 12/24 Venous doppler completed- Negative right upper extremity venous US. No deep vein thrombosis. -no need to continue eliquis small-bowel series largely normal, exam unremarkable, per surgery: clamp NG tube and start sips of clears, if tolerates that after a couple hours okay to DC NG and start clears. NG removed at 1440 pt is doing well. advance diet slowly as directed per surgery 12/[address] scan for stone position NG removed yesterday overall feeling ok but some some abd discomfort no vomiting advance diet slowly - burning with urination-will collect UA and start on PO antibiotics for now previous UA/sensitivities reviewed- will start augmentin 500 mg bid follow culture and sensitivities SCD for now for DVT prophylaxis. Full code. Time Spent With Patient Time with patient: 25 - 35 minutes Subjective Date/time seen: 12/25/24 10:13 Interval history: Patient is a 54-year-old female with PMH/of RUE dvt in July, migraine headache, thyroid nodule, abd uterine bleeding, anxiety/depression, arthritis, epilepsy, gallbladder disease, kidney stone admitted for lower abdominal pain and bilateral flank pain. She reports she was here 2 days ago and was told she has a 3 mm stone in her kidney. She had been taking Flomax at home, along with [place], with minimal relief. Patient reports significant nausea and vomiting that started this morning. She also reports that her urine has become more red and dark . Patient denies any chest pain, shortness of breath, or recent fevers. Ng is removed around 1440 on 12/24 pt is doing well. advance diet slowly per surgery instructions. 12/25- Repeat noncontrast CT scan for stone position. still some discomfort overnight and c/o flank pain during rounds. +BS no vomitting. states burning with urination Review of Systems Review of Systems: All systems reviewed & are unremarkable except as noted in HPI and below (h/p) Exam Const: General: uncomfortable Other: flank pain Resp: Effort & Inspection: normal respiratory effort Auscultation: clear to auscultation bilaterally Cardio: Rate: regular rate and tachycardic Rhythm: regular rhythm GI: Inspection: distended Auscultation: normal bowel sounds and abnormal bowel sounds (diminished) Other: NG in place Neuro: Speech: normal speech Motor exam (neuro): 5/5 motor strength present throughout Sensory Exam: normal sensation Extrem: General: normal to inspection Psych: Affect: normal affect Objective Data Vital Signs Vital Signs: Vital Signs - 24 hr 12/24/24 14:58 12/24/24 20:00 12/24/24 22:22 Temperature 98.3 F 97.2 F L Pulse Rate 88 106 H Respiratory Rate 16 18 Blood Pressure 158/82 H 116/68 Pulse Oximetry 98 100 97 Oxygen Delivery Room Air 12/25/24 06:00 Temperature 97.7 F Pulse Rate 96 Respiratory Rate 20 Blood Pressure 115/57 L Pulse Oximetry 98 Oxygen Delivery Intake/Output Intake/Output: Intake & Output 12/22/24 12/23/24 12/24/24 12/25/24 23:59 23:59 23:59 23:59 Intake Total 2666.7 2825.8 740 Output Total 504 826 3300 Balance 2466.7 2325.8 -360 Meds/Results Medications: Active Medications Generic Name Dose Route Start Last Admin Trade Name Freq PRN Reason Stop Dose Admin Calcium Carbonate 200 mg 12/24/24 10:02 12/24/24 11:27 Calcium Carbonate (Tums) 500 Mg (200 Mg Elemental) PO 200 mg Q6H PRN Administration Indigestion Hydromorphone HCl 1 mg 12/23/24 00:33 12/25/24 05:38 Hydromorphone Hcl Inj (*Crx) 2 Mg/Ml Vial IV PUSH 1 mg Q3H PRN Administration Pain Rated 7-10 Sodium Chloride 1,000 mls @ 75 mls/hr 12/23/24 00:35 12/24/24 20:51 Normal Saline Iv IV CONT 75 mls/hr .[id number] DEANDRE Administration Levetiracetam 1,000 mg in 100 mls @ 400 mls/hr 12/24/24 00:00 12/24/24 20:53 Keppra Iv IVPB 400 mls/hr Q12HR DEANDRE Administration Promethazine HCl 25 mg 12/23/24 00:33 12/25/24 05:34 Promethazine Hcl 25 Mg/Ml Ampul IM 25 mg Q4H PRN Administration Nausea And Vomiting Sodium Chloride 10 ml 12/23/24 14:00 12/24/24 21:04 Saline Lock Flush IV PUSH Not Given Q8HR DEANDRE Sodium Chloride 10 ml 12/23/24 11:18 Saline Lock Flush IV PUSH PRN PRN Flush Sodium Chloride 20 ml 12/23/24 11:18 Saline Lock Flush IV PUSH PRN PRN after blood draws Tamsulosin HCl 0.4 mg 12/25/24 09:00 Tamsulosin Hcl 0.4 Mg Capsule PO DAILY DEANDRE Radiology Results: ITS Impressions Upper GI and Small Bowel X-Ray 12/23/24 14:03 IMPRESSION: 1. No bowel obstruction with contrast passing through the normal caliber small bowel to the cecum by 30 minutes. 2. 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 Venous Doppler Study 12/23/24 17:00 IMPRESSION: Negative right upper extremity venous US. No deep vein thrombosis. Abdomen X-Ray 12/24/24 11:35 Impression: 1: Nonobstructive bowel gas pattern. Limited evaluation for renal/ureteral stones secondary to residual contrast in the colon. Abdomen/Pelvis CT 12/25/24 07:38 Impression: Small bilateral nonobstructing renal stones. No hydronephrosis. Previously noted proximal right ureteral stone appears to been passed since prior exam, no longer visualized. Quality VTE Prophylaxis VTE prophylaxis: mechanical ordered
[2024-12-25] MEDS: TAMSULOSIN HCL 0.4 MG CAPSULE PO (10:24)
[2024-12-25] MEDS: HYDROcodone/acetaminophen (*CRX) 5-325 MG TABLET 1 TAB PO (12:28)
[2024-12-25] MEDS: levETIRAcetam 500 MG TABLET 1000 MG PO ×2 (12:28→20:18)
[2024-12-25 14:00] VITALS: BP 131/70; PULSE 93; RESP 18; TEMP 36.3; O2SAT 100
[2024-12-25] MEDS: AMOXICILLIN/CLAVULANATE K 500-125 MG TAB 1 TABLET PO (15:20)
[2024-12-25 18:13] LABS: Add Urine Microscopic? YES; Appearance Urine Clear (Clear); Bacteria Urine None Seen /hpf; Bilirubin Urine Negative (Negative); Blood Urine Negative (Negative); Color Urine Yellow (Yellow); Glucose Urine UA Negative (Negative); Ketones Urine Negative (Negative); Leukocyte Esterase Ur Trace LEU/UL (Negative); Nitrate Urine Negative (Negative); Non Pathogenic Casts 0-2; Protein Urine Negative (Negative); RBC Urine 0-2 /hpf (0-2); Specific Grav Ur 1.011 (1.001-1.035); Squamous Epithelial Cell Urine None Seen /hpf (Few); WBC Urine 0-5 /hpf (0-3)
[2024-12-25 22:00] VITALS: BP 135/88; PULSE 95; RESP 20; TEMP 36.2; O2SAT 99
[2024-12-26] MEDS: HYDROcodone/acetaminophen (*CRX) 5-325 MG TABLET 1 TAB PO (01:59)
[2024-12-26 06:00] VITALS: BP 139/83; PULSE 80; RESP 18; TEMP 36.7; O2SAT 97
--- NOTE | 2024-12-26 06:40 | P.PNUR_ITS ---
Progress Note: A&P Assessment and Plan (1) Bilateral kidney stones: Code(s): N20.0 - Calculus of kidney Status: Acute (2) Right ureteral stone: Code(s): N20.1 - Calculus of ureter Status: Acute Assessment and Plan: * CT scan yesterday shows that her small right ureteral stone has passed spontaneously * Discharged any time from our standpoint. She should follow-up Dr. Mcdaniels and 4-6 weeks Subjective Subjective Date/Time Seen: 12/26/24 06:40 Interval history: Comfortable, feeling much better Review of Systems Review of Systems: All systems reviewed & are unremarkable except as noted in HPI and below Exam Const: General: no acute distress Resp: Effort & Inspection: normal respiratory effort GI: Inspection: non-distended GI Palp: No abdominal tenderness and No Guarding due to palpation present (GI) Auscultation: normal bowel sounds Objective Data Vital Signs Vital Signs: Vital Signs - 24 hr 12/25/24 08:00 12/25/24 14:00 12/25/24 20:00 Temperature 97.3 F L Pulse Rate 93 Respiratory Rate 18 Blood Pressure 131/70 Pulse Oximetry 100 100 Oxygen Delivery Room Air Room Air 12/25/24 22:00 Temperature 97.2 F L Pulse Rate 95 Respiratory Rate 20 Blood Pressure 135/88 Pulse Oximetry 99 Oxygen Delivery Intake/Output Intake/Output: Intake & Output 12/23/24 12/24/24 12/25/24 12/26/24 23:59 23:59 23:59 23:59 Intake Total 2666.7 2925.8 1460 Output Total 939 663 3419 Balance 2466.7 2425.8 -40 Meds/Results Medications: Active Medications Generic Name Dose Route Start Last Admin Trade Name Freq PRN Reason Stop Dose Admin Acetaminophen 500 mg 12/25/24 11:13 Acetaminophen 500 Mg Tablet PO Q6H PRN Mild Pain (1-3) or Fever Hydrocodone Bitart/Acetaminophen 1 tab 12/25/24 11:11 12/26/24 01:59 Hydrocodone/Acetaminophen (*Crx) 5-325 Mg Tablet PO 1 tab Q6H PRN Administration pain 4-6 Amoxicillin/Clavulanate Potassium 1 tablet 12/25/24 15:00 12/25/24 15:20 Amoxicillin/Clavulanate K 500-125 Mg Tab PO 1 tablet Q12HR DEANDRE Administration Calcium Carbonate 200 mg 12/24/24 10:02 12/24/24 11:27 Calcium Carbonate (Tums) 500 Mg (200 Mg Elemental) PO 200 mg Q6H PRN Administration Indigestion Hydromorphone HCl 1 mg 12/23/24 00:33 12/25/24 05:38 Hydromorphone Hcl Inj (*Crx) 2 Mg/Ml Vial IV PUSH 1 mg Q3H PRN Administration Pain Rated 7-10 Levetiracetam 1,000 mg 12/25/24 11:15 12/25/24 20:18 Levetiracetam 500 Mg Tablet PO 1,000 mg Q12HR DEANDRE Administration Promethazine HCl 25 mg 12/23/24 00:33 12/25/24 05:34 Promethazine Hcl 25 Mg/Ml Ampul IM 25 mg Q4H PRN Administration Nausea And Vomiting Sodium Chloride 10 ml 12/23/24 14:00 12/26/24 04:40 Saline Lock Flush IV PUSH Not Given Q8HR DEANDRE Sodium Chloride 10 ml 12/23/24 11:18 Saline Lock Flush IV PUSH PRN PRN Flush Sodium Chloride 20 ml 12/23/24 11:18 Saline Lock Flush IV PUSH PRN PRN after blood draws Tamsulosin HCl 0.4 mg 12/25/24 09:00 12/25/24 10:24 Tamsulosin Hcl 0.4 Mg Capsule PO 0.4 mg DAILY DEANDRE Administration Radiology Results: ITS Impressions Upper GI and Small Bowel X-Ray 12/23/24 14:03 IMPRESSION: 1. No bowel obstruction with contrast passing through the normal caliber small bowel to the cecum by 30 minutes. 2. 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 Venous Doppler Study 12/23/24 17:00 IMPRESSION: Negative right upper extremity venous US. No deep vein thrombosis. Abdomen X-Ray 12/24/24 11:35 Impression: 1: Nonobstructive bowel gas pattern. Limited evaluation for renal/ureteral stones secondary to residual contrast in the colon. Abdomen/Pelvis CT 12/25/24 07:38 Impression: Small bilateral nonobstructing renal stones. No hydronephrosis. Previously noted proximal right ureteral stone appears to been passed since prior exam, no longer visualized. Labs Labs: Laboratory Results - last 24 hr 12/25/24 17:51 Urine Color Yellow Urine Appearance Clear Urine pH 6.0 Ur Specific [place] 1.011 Urine Protein Negative Urine Glucose (UA) Negative Urine Ketones Negative Ur Blood (Man) Negative Urine Nitrate Negative Urine Bilirubin Negative Urine Urobilinogen 1.0 Ur Leukocyte Esterase Trace H Urine RBC 0-2 Urine WBC 0-5 Ur Squamous Epith Cells None seen Urine Bacteria None seen Urine Casts 0-2
[2024-12-26 08:00] VITALS: O2SAT 97
[2024-12-26] MEDS: TAMSULOSIN HCL 0.4 MG CAPSULE PO (09:01)
[2024-12-26] MEDS: AMOXICILLIN/CLAVULANATE K 500-125 MG TAB 1 TABLET PO (09:01)
[2024-12-26] MEDS: levETIRAcetam 500 MG TABLET 1000 MG PO (09:02)
--- NOTE | 2024-12-26 12:07 | P.DS_ITS ---
DS: Admitting Diagnosis Discharge Date 12/26 Admitting Diagnosis flank pain, sbo DS: Discharge Diagnosis Discharge Diagnosis (1) Anxiety: Code(s): F41.9 - Anxiety disorder, unspecified Status: Acute (2) DVT (deep venous thrombosis): Code(s): I82.409 - Acute embolism and thrombosis of unspecified deep veins of unspecified lower extremity Status: Acute (3) Abnormal liver function test: Code(s): R79.89 - Other specified abnormal findings of blood chemistry Status: Acute (4) Small bowel obstruction: Code(s): K56.609 - Unspecified intestinal obstruction, unspecified as to partial versus complete obstruction Status: Acute (5) Bilateral kidney stones: Code(s): N20.0 - Calculus of kidney Status: Acute (6) Seizure disorder: Code(s): G40.909 - Epilepsy, unspecified, not intractable, without status epilepticus Status: Acute DS: Summary Hospital Course Hospital Course: 54 year old female well known to Dr. Mcdaniels with a long history of recurrent urolithiasis, many of which she passed spontaneously. She has been in the ER tw ice in the last 3 days with diffuse abdominal and pelvic pain, nausea and vomiting. She did notice some dark color urine. On 12/20/2024 she suspected she had a a small-bowel obstruction but CT imaging on that occasion showed a 2 mm right proximal ureteral stone. On 12/22/2024 imaging showed right sided proximal ureteral stone it progressed to the mid ureter and she now had findings of a partial small-bowel obstruction. NG tube has been placed. Surgery consulted. - need to stop topiramate due to h/o multiple kidney stones. She will have to f/u with pcp to find alternatives for her headache. 12/24 Venous doppler completed- Negative right upper extremity venous US. No deep vein thrombosis. -no need to continue eliquis NG removed at 1440 on 12/24- pt is doing well. advance diet slowly. Reg diet- tolerating it well. no n/v. Wants nausea meds sent to her pharmacy just in case. On 12/[address] scan for stone position: Small bilateral nonobstructing renal stones. No hydronephrosis. Previously noted proximal right ureteral stone appears to been passed since prior exam, no longer visualized - burning with urination on 12/25-will collect UA and start on PO antibiotics for now previous UA/sensitivities reviewed- will start Augmentin 500 mg bid. follow culture and sensitivities. Status at Discharge Functional status at discharge: independent ambulation Overall status at discharge: patient is progressing back to baseline Time Spent with Patient Time attestation: Total time spent providing and/or coordinating discharge services: Time spent: Greater than 30 minutes Exam Const: General: comfortable Resp: Effort & Inspection: normal respiratory effort Auscultation: clear to auscultation bilaterally Cardio: Rate: regular rate and tachycardic Rhythm: regular rhythm GI: GI Palp: Yes Soft to palpation Auscultation: normal bowel sounds Other: NG in place Neuro: Speech: normal speech Motor exam (neuro): 5/5 motor strength present throughout Sensory Exam: normal sensation Extrem: General: normal to inspection Psych: Affect: normal affect DS: Data Data Completed and Pending Completed studies during hospitalization: abd ct, xray, venous doppler Labs on day of discharge: Labs from last 24 hours 12/25/24 17:51 Urine Color Yellow Urine Appearance Clear Urine pH 6.0 Ur Specific [place] 1.011 Urine Protein Negative Urine Glucose (UA) Negative Urine Ketones Negative Ur Blood (Man) Negative Urine Nitrate Negative Urine Bilirubin Negative Urine Urobilinogen 1.0 Ur Leukocyte Esterase Trace H Urine RBC 0-2 Urine WBC 0-5 Ur Squamous Epith Cells None seen Urine Bacteria None seen Urine Casts 0-2 Discharge Plan Discharge Attending physician on discharge: Eugenio Marrero Consulting providers: Julianne Holliday; Ruben Melo Discharging Clinician: Cande Flores Patient Disposition: Home Activity: may shower Diet: heart healthy Discharge Instructions: Please continue taking your antibiotics for your UTI. discussed, i will call you if urine culture comes back abnormal. F/u with urologist as instructed. Take it easy with diet- eat small portions, avoid dairy, spicy, greasy foods. Stop taking topiramate (for headache) as it could cause kideny stones. Patient Instructions: Antibiotic Form Patient Language: Tamaz[place] Stand Alone Forms: General Discharge Information Follow-up/Referrals: Madhu Tilley MD [Primary Care Provider] - 2 Weeks Ruben Melo MD [Physician] - 2 Weeks Discharge Medications: New amoxicillin-pot clavulanate [Augmentin] 500-125 mg Tablet 1 tablet PO Q12HR Qty: 7 0RF promethazine 12.5 mg tablet 6.25 mg PO TID PRN (Reason: nausea) Qty: 3 0RF Rx Instructions: 3 doses during day; last dose no later than 4 hr before bedtime Continued levetiracetam 1,000 mg tablet 1,000 mg PO Q12H phentermine 15 mg capsule 15 mg PO DAILY tizanidine 4 mg tablet 4 mg PO QID PRN (Reason: muscle spasticity) Eliquis 5 mg tablet 5 mg PO .Twice Daily tamsulosin 0.4 mg capsule 0.4 mg PO DAILY 7 Days Qty: 7 0RF hydrocodone-acetaminophen 5-325 mg tablet 1 tablet PO Q6H PRN (Reason: pain) Qty: 20 0RF Discontinued hydrocodone-acetaminophen 5-325 mg tablet 1 tablet PO Q6H PRN (Reason: pain) Qty: 5 0RF topiramate 100 mg tablet 100 mg PO BID Date of admission: 12/24/24 09:39 Primary Care Provider: Madhu Tilley Admitting Provider: Ivonne Garzon Attending physician on admission: Ivonne Garzon Condition: Stable Quality VTE Prophylaxis VTE prophylaxis: mechanical ordered Hospitalist MIPS Heart Failure (Exclusion) Patient has history of Heart Transplant or Left Ventricular Assistive Device?: No IF YES, STOP HERE Heart Failure (Qualifier) Patient has current or prior documentation of LVEF less than or equal to 40%, or mod/servere depressed LVSF?: No IF NO, STOP HERE
--- NOTE | 2024-12-26 13:38 | P.PNGS_ITS ---
Progress Note: A&P Assessment and Plan (1) Small bowel obstruction: Code(s): K56.609 - Unspecified intestinal obstruction, unspecified as to partial versus complete obstruction Status: Acute Assessment and Plan: Resolved, moving her bowels and tolerating regular diet. She is surgically stable for discharge today. Follow up p.r.n.. Plan I have discussed the patient's case and plan of care with Dr. Holliday. Subjective Subjective Date/Time Seen: 12/26/24 11:38 Patient reports: no new complaints, feels better, tolerating a regular diet, flatus and bowel movement Interval history: No abdominal pain, nausea, or vomiting. Tolerating regular diet. Exam GI: Inspection: non-distended GI Palp: Yes Soft to palpation, No Tenderness to palpation present (GI), No Guarding due to palpation present (GI) and No Rebound tenderness present Auscultation: normal bowel sounds Objective Data Vital Signs Vital Signs: Vital Signs - 24 hr 12/25/24 14:00 12/25/24 20:00 12/25/24 22:00 Temperature 97.3 F L 97.2 F L Pulse Rate 93 95 Respiratory Rate 18 20 Blood Pressure 131/70 135/88 Pulse Oximetry 100 99 Oxygen Delivery Room Air 12/26/24 06:00 12/26/24 08:00 Temperature 98.0 F Pulse Rate 80 Respiratory Rate 18 Blood Pressure 139/83 Pulse Oximetry 97 97 Oxygen Delivery Room Air Intake/Output Intake/Output: Intake & Output 12/23/24 12/24/24 12/25/24 12/26/24 23:59 23:59 23:59 23:59 Intake Total 2666.7 2925.8 1460 980 Output Total 930 263 0996 1400 Balance 2466.7 2425.8 -40 -420 Meds/Results Radiology Results: ITS Impressions Upper GI and Small Bowel X-Ray 12/23/24 14:03 IMPRESSION: 1. No bowel obstruction with contrast passing through the normal caliber small bowel to the cecum by 30 minutes. 2. 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 Venous Doppler Study 12/23/24 17:00 IMPRESSION: Negative right upper extremity venous US. No deep vein thrombosis. Abdomen X-Ray 12/24/24 11:35 Impression: 1: Nonobstructive bowel gas pattern. Limited evaluation for renal/ureteral stones secondary to residual contrast in the colon. Abdomen/Pelvis CT 12/25/24 07:38 Impression: Small bilateral nonobstructing renal stones. No hydronephrosis. Previously noted proximal right ureteral stone appears to been passed since prior exam, no longer visualized. Labs Labs: Laboratory Results - last 24 hr 12/25/24 17:51 Urine Color Yellow Urine Appearance Clear Urine pH 6.0 Ur Specific [place] 1.011 Urine Protein Negative Urine Glucose (UA) Negative Urine Ketones Negative Ur Blood (Man) Negative Urine Nitrate Negative Urine Bilirubin Negative Urine Urobilinogen 1.0 Ur Leukocyte Esterase Trace H Urine RBC 0-2 Urine WBC 0-5 Ur Squamous Epith Cells None seen Urine Bacteria None seen Urine Casts 0-2
--- NOTE | 2024-12-27 11:26 | PC.NURSE ---
Urine cx is negative.
== END 2024-12-26 13:34 | disposition home or self-care (01) | DRG 694 ==
LOC: ANHED 12-23 00:32 → ANH3MED 12-23 01:27
PROVIDERS: Admitting Provider Internal Medicine; Emergency Provider Registered Nurse; PCP Internal Medicine; Visit Provider Nurse Practitioner
DX: N13.2 Hydronephrosis with renal and ureteral calculous obstruction (principal); K56.609 Unspecified intestinal obstruction, unspecified as to partial versus complete obstruction; F41.9 Anxiety disorder, unspecified; F32.A Depression, unspecified; G40.909 Epilepsy, unspecified, not intractable, without status epilepticus; Z79.01 Long term (current) use of anticoagulants; Z96.0 Presence of urogenital implants; Z90.49 Acquired absence of other specified parts of digestive tract; Z98.84 Bariatric surgery status; Z86.718 Personal history of other venous thrombosis and embolism
CPT/HCPCS: 36415; 36569; 74018; 74176; 74250; 80053; 80307; 81001; 85025; 87086; 93971; 96361; 96372; 96374; 96375; 96376; 99285; A9270; C1751; G0378; J1171; J1953; J2405; J2550; J7030

== ENCOUNTER 2025-01-09 13:13 | Emergency (ER) | payer MEDICARE, MEDICAID, SELFPAY ==
--- NOTE | ~2025-01-09 | CT_ITS ---
CLINICAL INDICATION: Left flank pain with dysuria COMPARISON: 12/25/2024. TECHNIQUE: Multiple contiguous axial images of the abdomen and pelvis were performed without the admi nistration of intravenous contrast The dose-length product (DLP) was 269.42 mGy-cm. Automated exposure control and iterative reconstruction technique were employed. FINDINGS/OBSERVATIONS: Visualized lower thorax: The bilateral lung bases are clear. The heart is of normal size, without pericardial effusion. Small hiatal hernia is present. Liver: The liver demonstrates homogeneous attenuation and is not enlarged. Gallbladder and biliary system: The gallbladder is surgically absent. Pancreas: Limited evaluation of the pancreas secondary to the lack of intravenous contrast. Spleen: The spleen demonstrates homogeneous attenuation and is not enlarged. Kidneys: Redemonstration of bilateral nonobstructing renal calculi within the lower poles of the bila teral kidneys, the largest on the right measures 4.6 mm. The longest on the left measures 2.8 mm. The remainder of the bilateral kidneys are otherwise unremarkable, without hydronephrosis or addition al renal calculi. Adrenal glands: Unremarkable. Gastrointestinal tract: No significant diverticulosis is identified. Postoperative change within the left lower quadrant. Appendix: The appendix is not definitively visualized. However, no pericecal inflammatory change is identified suggest the presence of acute appendicitis. Vasculature: Unremarkable. Lymph nodes: No pathologically enlarged or morphologically suspicious lymph nodes within the retroperitoneum or at the root of the mesentery. Pelvic structures: The bladder is only minimally distended, and otherwise unremarkable. The uterus is either atrophic or surgically absent. Body wall and musculoskeletal: Prior ventral hernia repair. No significant degenerative disease within the lower thoracic or lumbosacral spine. IMPRESSION: Bilateral nonobstructing renal calculi. No acute findings within the abdomen or pelvis, as detailed above. 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
[2025-01-09 13:17] VITALS: BP 146/87; PULSE 103; RESP 16; TEMP 36.4; O2SAT 99
--- OUTSIDE RECORDS SUMMARY | 2025-01-09 13:20 | XMS_ITS | Clinical Summary ---
Author Organization [facility] Address [address] [place] [address] Care Team Providers Care Portfolio Administrator Name Role Phone Unavailable Primary Care Provider [...] 11:39 AM CDT Height 162.6 cm (5' 4) 03/31/2022 11:39 AM CDT Body Mass Index [...] Most Recently Relevant to Health Maintenance Insurance [employer] [address] [place] [id number]
--- OUTSIDE RECORDS SUMMARY | 2025-01-09 13:20 | XMS_ITS | Patient Health Record ---
Author Organization [facility] [place] Address [address] [address] Care Team Providers Care Surgical Scrub Technologist Name Role Phone Anum Lisa Primary Care [...] Risk Notes Problem Mild recurrent major depression (34459743) Major depressive disorder, recurrent episode, mild (296.31) 1 Active confirmed ([facility]) Added By: Angelina Garrett Problem Anxiety state (364744501) Anxiety state, unspecified (300.00) 1 Active confirmed ([facility]) Added By: Angelina Garrett Plan Of Treatment No Information Medical (General) History Surgical History Surgery Date(Month/Year) gastric bypass 2010 hernia repair 2011 lithotripsy October 2012 Hysterectomy
--- OUTSIDE RECORDS SUMMARY | 2025-01-09 13:20 | XMS_ITS | Clinical Summary ---
Author Organization [facility] Address [address] [place] [address] Care Team Providers Care Telephonic Rn Name Role Phone Madhu Tilley MD Primary Care Provider [phone] Source Comments [facility],non-owned Affiliates and Associated Physician Practices is amultiple site organization consisting of ambulatory clinics and hospital sitesin [place], [place], [place] and [place]. This disclosure is being madepursuant to the Care Everywhere program and may not contain all information available regarding this patient. Last updated 18.[facility] Allergies Active Allergy Reactions Criticality Noted Date [...] vitamin D, ergocalciferol , (Drisdol) 1.25 MG (76146 UT) capsule Take 1 (one) capsule by [...] fluticasone propionate (Flonase) 50 MCG/ACT nasal spray Vulcan 2 (two) sprays into each nostril once [...] and heating? Not hard at all 03/30/2023 [facility] - [...] place to sleep or slept in a long-term (including now)? No 03/30/2023 Comments No Sex and Gender Information Value Date Recorded Sex Assigned at Female Legal Sex Female 10:00 AM CHAIN MAKER HAND Gender Identity Female Sexual Orientation Straight Last [...] 8:46 PM CDT Height 162.6 cm (5' 4.02) 03/29/2023 8:46 PM CD T Body Mass [...] this topic Medical Devices Implanted Type Area Director Of Early Childhood Education Device Identifier Shelf Expiration Date Model / Serial / Lot Graft Tissue Nushield 3x2cm [facility] - [id number] Implanted:Qty: 1 on 10/22/2021 by Ramone Galloway MD at [facility] N/A: Back Organogenesis 05/05/2025 NO-1230 / [id number] / Procedures Procedure Name Priority Date/Time Associated Diagnosis Comments BASIC METABOLIC PANEL (CALCIUM TOTAL) Routine 04/03/2023 3:08 AM CDT HEPATITIS SCREEN ACUTE Routine 02/21/2021 3:19 AM CDT HIV-1 HIV-2 ANTIGEN/ANTIBODY STAT 10/13/2018 11:33 AM CHAIN MAKER HAND LIPID PROFILE Routine 09/22/2013 2:15 PM CHAIN MAKER HAND Major Depressive Disorder, Recurrent Episode, Mild from Last 3 Months or Most Recently Relevant to Health Maintenance Results * (ABNORMAL) BASIC METABOLIC PANEL (CALCIUM TOTAL) (04/03/2023 3:08 AM CDT) Pathologist [facility] Glucose 84 70 - 105 mg/dL 04/03/2023 [...] - 10.4 mg/dL 04/03/2023 4:27 AM CDT [facility] Anion Gap 8 6 - 16 mmol/L 04/03/2023 4:27 AM CDT [facility] BUN 16 7 - 26 mg/dL 04/03/2023 4:27 AM CDT [facility] Creatinine 0.69 0.57 - 1.11 mg/dL 04/03/2023 4:27 AM CDT [facility] eGFR by CKD-EPI >90 >=90 mL/min/1.7 3 m2 04/03/2023 4:27 AM CDT [facility] Blood BLOOD SPECIMEN / Unknown Venipuncture / Unknown 04/03/2023 3:08 AM CDT 04/03/2023 4:09 AM CDT us Jacqueline Jerome METAL SANDER AND FINISHER-8TH GRADE MATHEMATICS TEACHER LAB - CHEMISTRY O RDERABLES Final Result Performing Organization Address [facility] de Phone Number [facility] [address] [place] [address] * HEPATITIS SCREEN ACUTE (02/21/2021 3:19 AM CDT) Pathologist [facility] HAV Antibody IgM Non Reactive Non Reactive 02/21/2021 4:52 AM CDT [facility] HBsAg Non Reactive Non Reactive 02/21/2021 4:52 AM CDT [facility] HBc Antibody IgM Non Reactive Non Reactive 02/21/2021 4:52 AM CDT [facility] HCV Antibody Screen Non Reactive Non Reactive 02/21/2021 4:52 AM CDT [facility] Blood BLOOD SPECIMEN / Unknown Venipuncture / Unknown 02/21/2021 3:19 AM CDT 02/21/2021 4:01 AM CDT Narrative [facility] - 02/21/2021 4:52 AM CDT Non Reactive - Antibodies to Hepatitis C virus (HCV) were not detected, result does not exclude early acute HCV infection. us Rylie Villalobos MD LAB - CHEMISTRY ORDERABLES Final Result Performing Organization Address [facility] de Phone Number [facility] [address] [place] [address] * HIV-1 HIV-2 ANTIGEN/ANTIBODY (10/13/2018 11:33 AM CHAIN MAKER HAND) [facility] HIV Antigen/Antibod y 1 & 2 Non-reacti ve Non-react fredrick 10/13/2018 12:39 PM CHAIN MAKER HAND [facility] Comment: Neither HIV-1 p24 Antigen nor HIV-1/HIV-2 Antibodies are detected. Blood BLOOD SPECIMEN / Unknown Venipuncture / Unknown 10/13/2018 11:33 AM CHAIN MAKER HAND 10/13/2018 11:45 AM CHAIN MAKER HAND us Scott Chun MD LAB - HEMATOLOGY ORDERABLES F inal Result [facility] [address] [place] [address], [facility] [phone] * LIPID PROFILE (09/22/2013 2:15 PM CHAIN MAKER HAND) [facility] Cholesterol 149 <200 mg/dL 09/22/2013 3:18 PM CHAIN MAKER HAND [facility] Triglycerides 79 <150 mg/dL 09/22/2013 3:18 PM CHAIN MAKER HAND [facility] HDL Cholesterol 66 >40 mg/dL 4 3:18 PM [facility] Chol HDL Ratio 2.3 1.0 - 6.0 09/22/2013 3:18 PM CHAIN MAKER HAND [facility] LDL Calculated 67 65 - 130 mg/dL 09/22/2013 3:18 PM CHAIN MAKER HAND [facility] VLDL Calculated 16 10 - 40 mg/dL 09/22/2013 3:18 PM CHAIN MAKER HAND [facility] Blood BLOOD SPECIMEN / Unknown Venipuncture / Unknown 09/22/2013 2:15 PM CHAIN MAKER HAND 09/22/2013 2:29 PM CHAIN MAKER HAND Narrative [facility] - 09/22/2013 3:18 PM CHAIN MAKER HAND Lipid Profile Comment: CHOLESTEROL LEVEL..................CLINICAL INTERPRETATION LESS [...] [facility] LAB - CHEMISTRY ORDERABLES Final Result [facility] [address] from Last 3 Months or Most Recently Relevant to Health Maintenance Additional Health Concerns Infection Onset Date Last Indicated ESBL Hx Comment:urine 11/08/2018 03/16/2023 [place] [address] [facility] MANAGED MEDICARE ADV MEDICAID - [place] * Guarantor: PRASHANT FARLEY Account Type Relation to Patient Date of Phone Billing Address Personal/Family 1970 [address] [place] [address] Advance Directives * Full Code (Latest Code [...] 12:36 PM 09/17/2022 2:57 PM Care Teams Telephonic Rn Relationship Specialty Start Date End Date Madhu Tilley MD [address] [place] [address] PCP - General Internal Medicine 03/17/23
--- OUTSIDE RECORDS SUMMARY | 2025-01-09 13:20 | XMS_ITS | Referral Summary ---
Author Organization [facility] Address [address] [place] [address] Care Team Providers Care Commercial Crabber Name Role Phone Kit Jonas MD Unavailable [phone] Madhu Tilley MD Primary Care Provider [phone] Allergies Active Allergy Reactions Criticality Noted Date [...] often do you attend chur ch or yarsanism services? Never 02/04/2023 Do you belong to any clubs o r organizations such as spiritism groups, unions, fraternal or athletic groups, or [...] slept in a long-term (including now)? No 02/04/2023 Housing Stability Vital [...] on file Legal Sex Female 2:16 AM RECORD CHANGER TESTER Gender Identity Not on file Sexual Orientation Not on file Last Filed Vital Signs Vital Sign Reading Time Taken Comments Blood Pressure 149/87 09/18/2023 7:03 PM RECORD CHANGER TESTER Pulse 80 09/18/2023 7:03 PM RECORD CHANGER TESTER Temperature 37 C (98.6 F) 09/18/2023 7:03 PM RECORD CHANGER TESTER Respiratory Rate 16 09/18/2023 7:03 PM RECORD CHANGER TESTER Oxygen Saturation 100% 09/18/2023 7:03 PM RECORD CHANGER TESTER Inhaled Oxygen Concentration - - Weight 88.5 kg (195 lb) 09/18/2023 2:48 PM RECORD CHANGER TESTER Height 162.6 cm (5' 4) 06/06/2023 12:45 PM CDT Body Mass Index [...] CDT Narrative 05/10/2017 5:10 PM CDT Acc#: [id number] JOSE RAUL 0015 - Diag Mamm BI [...] M.D. TECHNOLOGIST: SHANE DUMONT TECHNOLOGIST MEDICAL IMAGING BRIDGE OPERATOR SLIP: [facility] TRANSCRIBE DATE/TIME: May 11 2017 4:05P RADIOLOGIST: MARJORIE FRIAS M.D. READ ON: May 10 2017 3:22P ORDERING DR: NADIA BROWN M.D. THIS DOCUMENT HAS BEEN ELECTRONICALLY SIGNED BY: MARJORIE FRIAS M.D. ON: May 11 2017 4:05P Attending: DENG JACOBSON Requesting: NADIA BROWN Requesting Attending Attending ID: [id number] Requesting ID: [id number] Report To 1 ID: [id number] Report To 1 Name: DENG JACOBSON Report To 1 FAX: [phone] Report To 2 ID: Report To 2 Name: , Report To 2 FAX: -- NextGen Order #: Procedure Note Miscellaneous, Not In File / Provider, MD Keren - 05/11/2017 Acc#: [id number] JOSE RAUL 0015 - Diag Mamm BI [...] M.D. TECHNOLOGIST: SHANE DUMONT TECHNOLOGIST MEDICAL IMAGING BRIDGE OPERATOR SLIP: [facility] TRANSCRIBE DATE/TIME: May 11 2017 4:05P RADIOLOGIST: MARJORIE FRIAS M.D. READ ON: May 10 2017 3:22P ORDERING DR: NADIA BROWN M.D. THIS DOCUMENT HAS BEEN ELECTRONICALLY SIGNED BY: MARJORIE FRIAS M.D. ON: May 11 2017 4:05P Attending: DENG JACOBSON Requesting: NADIA BROWN Requesting Attending Attending ID: [id number] Requesting ID: [id number] Report To 1 ID: [id number] Report To 1 Name: DENG JACOBSON Report To 1 FAX: [phone] Report To 2 ID: Report To 2 Name: , Report To 2 FAX: -- NextGen Order #: Nadia Brown MD IMG MAMMO PROCEDURES E dited Result - Final from Last 3 Months or Most Recently Relevant to Health Maintenance Additional Health Concerns Infection Onset Date Last Indicated MDR gram neg/ESBL Comment:ESBL E.coli urine 11/07/17, 11/15/17, 04/16/18, 02/21/19 11/07/2017 02/21/2019 Insurance [employer] MEDICARE [facility] CLAIMS OFFICE [facility] MEDICARE [place] [address] [place] [address] [facility] MEDICARE ADVANTAGE [employer] [facility] MEDICARE ADVANTAGE Advance Directives For more information, please contact: [phone] * Full Code (Latest Code Status on File) Date Activated Date Inactivated Comments 02/03/2023 7:52 PM 02/05/2023 5:54 PM * Full Code Date Activated Date Inactivated Comments 04/19/2018 11:35 AM 04/20/2018 8:58 PM * Full Code Date Activated Date Inactivated Comments 02/03/2018 12:56 AM 02/04/2018 7:24 PM Care Teams Commercial Crabber Relationship Specialty Start Date End Date Madhu Tilley MD PCP - General 07/04/20 Kit Jonas MD Surgeon General Surgery 02/04/18
--- OUTSIDE RECORDS SUMMARY | 2025-01-09 13:20 | XMS_ITS | Clinical Summary ---
Author Organization [facility] Address [address] [place] [address] Care Team Providers Care Manager Of Case Name Role Phone Kit Jonas MD Unavailable Madhu Tilley MD Primary Care Provider [phone] Allergies Active Allergy Reactions Criticality Noted Date [...] often do you attend chur ch or gnosticism services? Never 02/04/2023 Do you belong to any clubs o r organizations such as samaritan groups, unions, fraternal or athletic groups, or [...] on file Legal Sex Female 2:16 AM PLASTICS FABRICATOR AND ASSEMBLER Gender Identity Not on file Sexual Orientation Not on file Obstetrics History Last Filed Vital Signs Vital Sign Reading Time Taken Comments Blood Pressure 149/87 09/18/2023 7:03 PM PLASTICS FABRICATOR AND ASSEMBLER Pulse 80 09/18/2023 7:03 PM PLASTICS FABRICATOR AND ASSEMBLER Temperature 37 C (98.6 F) 09/18/2023 7:03 PM PLASTICS FABRICATOR AND ASSEMBLER Respiratory Rate 16 09/18/2023 7:03 PM PLASTICS FABRICATOR AND ASSEMBLER Oxygen Saturation 100% 09/18/2023 7:03 PM PLASTICS FABRICATOR AND ASSEMBLER Inhaled Oxygen Concentration - - Weight 88.5 kg (195 lb) 09/18/2023 2:48 PM PLASTICS FABRICATOR AND ASSEMBLER Height 162.6 cm (5' 4) 06/06/2023 12:45 [...] CDT Narrative 05/10/2017 5:10 PM CDT Acc#: [id number] JOSE RAUL 0015 - Diag Mamm BI [...] Category 2, benign. Electronically signed by: Ivy Mruray M.D. ADDENDUM #2 No old study available for comparison. BI-RADS 2: Benign finding. Recommend annual mammogram Electronically signed by: Marjorie Frias M.D. TECHNOLOGIST: SHANE DUMONT TECHNOLOGIST MEDICAL IMAGING DIRECTOR ADULT: [facility] TRANSCRIBE DATE/TIME: May 11 2017 4:05P RADIOLOGIST: MARJORIE FRIAS M.D. READ ON: May 10 2017 3:22P ORDERING DR: NADIA BROWN M.D. THIS DOCUMENT HAS BEEN ELECTRONICALLY SIGNED BY: MARJORIE FRIAS M.D. ON: May 11 2017 4:05P Attending: DENG JACOBSON Requesting: NADIA BROWN Requesting Attending Attending ID: [id number] Requesting ID: [id number] Report To 1 ID: [id number] Report To 1 Name: DENG JACOBSON Report To 1 FAX: [phone] Report To 2 ID: Report To 2 Name: , Report To 2 FAX: -- NextGen Order #: Procedure Note Miscellaneous, Not In File / Provider, MD Keren - 05/11/2017 Acc#: [id number] JOSE RAUL 0015 - Diag Mamm BI [...] Frias M.D. TECHNOLOGIST: RICARDO COLVINOLOGIST MEDICAL IMAGING DIRECTOR ADULT: [facility] TRANSCRIBE DATE/TIME: May 11 2017 4:05P RADIOLOGIST: MARJORIE FRIAS M.D. READ ON: May 10 2017 3:22P ORDERING DR: NADIA BROWN M.D. THIS DOCUMENT HAS BEEN ELECTRONICALLY SIGNED BY: MARJORIE FRIAS M.D. ON: May 11 2017 4:05P Attending: DENG JACOBSON Requesting: NADIA BROWN Requesting Attending Attending ID: [id number] Requesting ID: [id number] Report To 1 ID: [id number] Report To 1 Name: DENG JACOBSON Report To 1 FAX: [phone] Report To 2 ID: Report To 2 Name: , Report To 2 FAX: -- NextGen Order #: Nadia Brown MD IMG MAMMO PROCEDURES E dited Result - Final from Last 3 Months or Most Recently Relevant to Health Maintenance Additional Health Concerns Infection Onset Date Last Indicated MDR gram neg/ESBL Comment:ESBL E.coli urine 11/07/17, 11/15/17, 04/16/18, 02/21/19 11/07/2017 02/21/2019 Insurance [employer] MEDICARE HUMAN CLAIMS OFFICE [facility] MEDICARE ADVANTAGE IDPA [facility] MEDICARE ADVANTAGE [employer]PA [facility] MEDICARE ADVANTAGE Advance Directives For more information, please contact: [phone] * Full Code (Latest Code Status on File) Date Activated Date Inactivated Comments 02/03/2023 7:52 PM 02/05/2023 5:54 PM * Full Code Date Activated Date Inactivated Comments 04/19/2018 11:35 AM 04/20/2018 8:58 PM * Full Code Date Activated Date Inactivated Comments 02/03/2018 12:56 AM 02/04/2018 7:24 PM Care Teams Manager Of Case Relationship Specialty Start Date End Date Madhu Tilley MD PCP - General 07/04/20 Kit Jonas MD Surgeon General Surgery 02/04/18
--- OUTSIDE RECORDS SUMMARY | 2025-01-09 13:20 | XMS_ITS | CONTINUITY OF CARE DOCUMENT ---
Author Name bruno carr Address Unknown Organization [facility] Address [address] [place] [address] Phone [phone] Care Team Providers Care Portfolio Strategist Name Role Phone Liseth GUERRERO, Yung Unavailable GAVINO QUINTEROS MD Unavailable [phone] MADDY BAIRD MD Unavailable PROBLEMS Condition Status [...] In-person encounter Office Visit Yung Childers MD [facility] HTNh/o Kidney stones - In-person encounter Office Visit Yung Childers MD [facility] - In-person encounter Office Visit Yung Childers MD [facility] - In-person encounter Office Visit Yung Childers MD [facility] - In-person encounter Office Visit Jaime Beck MD [facility] CHEST PAIN-02/21 NUC NEGSHORTNESS OF BREATH;NML, CXR, BNP AND DDIMER 09LVH;NML EF 02/21DYSPNEA ON EXERTION;WILL DO SPIROMETRYOBESITY;CA USE OF SOB? VITAL SIGNS Date Observation Value Provider Body Mass Index (Ratio) 32.78 kg/m2 uBd Childers MD blood pressure, diastolic 62 mm[Hg] Colton pickering [place] blood pressure, systolic 100 mm[Hg] Savannah gabriel Palmer oxygen saturation, oximetry 99 % [place] Palmer respiratory rate E&M 16 /min Vito Palmer pulse rate 76 /min Vito Palmer weight E&M 197 [lb_av] [place] Palmer height E&M 65 [in_i] [facility] Body Mass Index (Ratio) 32.45 kg/m2 Bud Childers MD blood pressure, cuff size regular Ke rri Jory blood pressure, diastolic 66 mm[Hg] Ke rri Jory blood pressure, systolic 110 mm[Hg] Cely Corley oxygen saturation, oximetry 97 % Nadia Corley respiratory rate E&M 18 /min Nadia giles pulse rate 42 /min Nadia vazquez weight E&M 195 [lb_av] Nadia Blackman [facility] height E&M 65 [in_i] Nadia Blackman [facility] Body Mass Index (Ratio) 33.28 kg/m2 Bud Childers MD blood pressure, cuff size regular Ke rri Jory blood pressure, diastolic 74 mm[Hg] Ke jacei Jory blood pressure, systolic 116 mm[Hg] Cely Corley oxygen saturation, oximetry 98 % Nadia Diazkhanh respiratory rate E&M 18 /min Nadia Portillo alclivejarod pulse rate 75 /min Nadia Blackman [facility] weight E&M 200 [lb_av] Nadia Diazyocastajenniferjose vazquez height E&M 65 [in_i] Nadia Diazyocastaethandereck [facility] Body Mass Index (Ratio) 32.95 kg/m2 Bud Childers MD blood pressure, cuff size regular Ke kiran Jory height E&M 65 [in_i] Nadia Hiral vazquez blood pressure, diastolic 80 mm[Hg] Ke kiran Jory blood pressure, systolic 122 mm[Hg] Cely aragon Jory oxygen saturation, oximetry 99 % Nadia Jory respiratory rate E&M 18 /min Nadia Portillo tisha pulse rate 87 /min Nadia Diazyocastadelano [facility] weight E&M 198 [lb_av] Nadia Diazoctavio [facility] blood pressure, diastolic 60 mm[Hg] Kyung sherman [...] Payer name Policy type / Coverage type [employer] red green party ID AARP MEDICARE ADVANTAGE ([facility] COMPLETE PPO) Other [id number] ADVANCE DIRECTIVES Name Date DISCUSSED - NO [...] ..... One tab. daily Orders: S pirometry (CPT-41283) BP today: 101/60 Prior BP: / () [...] or scar. (03/04/2009) Orders: C omplete Echo ([id number]) Jaime Beck MD [place] due to obesity: [...] STR - Adenosine ZIO Holter DLCO - 13329 FRC - 39038 FVC - 17566 Complete Echo Complete Echo Spirometry HISTORY OF PROCEDURES Procedure Date Procedure Name Provider Procedure Notes S tatus Ambulatory BP Yung Childers MD comple dwight Stress EKG Al Maguire MD completed Regadenoson, 4 units Yung Childers MD completed Cardiolite, 2 units Yung Childers MD completed SPECT Images Shy Villasenor MD complet ed SNOMED-CT: 67641708 Physical Exam, Performed: Pulse Exam of Foot Yung Childers MD completed SNOMED-CT: 129748633 222194 Current Medications Documented Yung Childers MD completed SNOMED-CT: 31893987 Physical Exam, Performed: Pulse Exam of Foot Yung Childers MD completed SNOMED-CT: 356593851 909283 Current Medications Documented Yung Childers MD completed FVC / MVV with bronchodilator - 80000 Yung Childers MD completed FRC - 93128 Yung Childers MD complete d SpO2 - 75403 Yung Childers MD complet ed DLCO - 75553 Yung Childers MD complet ed IVAN Childers MD co mpleted SNOMED-CT: 98812706 Physical Exam, Performed: Pulse Exam of Foot Yung Childers MD completed EKG Yung Childers MD completed SNOMED-CT: 027137675 405055 Current Medications Documented Yung Childers MD completed
--- OUTSIDE RECORDS SUMMARY | 2025-01-09 13:20 | XMS_ITS | Encounter Summary ---
Author Organization [facility] Address [address] [place] [address] Care Team Providers Care Rn Bariatric Name Role Phone Unavailable Primary Care Provider Unavailabl e Prior Encounters Date Type Department Care Team Description 03/31/2022 Travel 03/31/2022 11:15 AM CDT Office Visit [facility] [address] [place] [address] Emperatriz Zuñiga DDS Dental caries unspecified (Primary Dx) 03/26/2022 Travel 03/26/2022 1:00 PM CDT Office Visit [facility] [address] [place] [address] Rustam Taylor DMD Last Filed [...] Analgesia: Fentanyl Intra-procedure monitoring: Blood pressure monitoring, teletypesetter monitor, continuous capnometry, continuous pulse oximetry, frequent [...] is stable for discharge or admission: yes Fountain Vending Mechanic's Name:: Jonathan Emperatriz Zuñiga DDS ANESTHESIA ORDERABLES Final Re sult Visit Diagnoses Diagnosis Start Date Dental caries unspecified 03/31/2022 Insurance [employer] PPO [place] [employer] COMM[employer]CIAL [employer] PPO [address] COMMERCIAL
--- OUTSIDE RECORDS SUMMARY | 2025-01-09 13:20 | XMS_ITS | Clinical Summary ---
Author Organization [facility] Address [address] [place] [address] Phone Care Team Providers Care Utilization Specialist Name Role Phone Madhu Tilley MD Primary Care Provider [phone] Allergies Active Allergy Reactions Criticality Noted Date [...] Comments Blood Pressure 113/80 09/16/2019 4:37 PM SOUND EDITOR Pulse 79 09/16/2019 4:37 PM SOUND EDITOR Temperature 36.4 C (97.6 F) 09/16/2019 1:11 PM SOUND EDITOR Respiratory Rate 18 09/16/2019 4:37 PM SOUND EDITOR Oxygen Saturation 95% 09/16/2019 4:37 PM SOUND EDITOR Inhaled Oxygen Concentration - - Weight 79.4 kg (175 lb) 09/16/2019 1:11 PM SOUND EDITOR Height 162.6 cm (5' 4) 09/16/2019 1:11 PM SOUND EDITOR Body Mass Index 30.04 09/16/2019 1:11 PM SOUND EDITOR Plan of Treatment Health Maintenance Due Date [...] Advance Directives For more information, please contact: [phone] * Full Code (Latest Code Status on File) Date Activated Date Inactivated Comments 07/16/2018 9:55 PM 07/19/2018 2:03 PM Care Teams Utilization Specialist Relationship Specialty Start Date End Date Madhu Tilley MD [address] [facility] [address] [place] [address] PCP - General Internal Medicine 08/27/19
--- OUTSIDE RECORDS SUMMARY | 2025-01-09 13:20 | XMS_ITS | Clinical Summary ---
Author Organization [facility] Address [address] [place] [address] Phone Care Team Providers Care Front End Loader Driver Name Role Phone Madhu Tilley MD Primary Care Provider [phone] Allergies Active Allergy Reactions Criticality Noted Date [...] Comments Blood Pressure 177/89 08/31/2023 5:00 PM HOME RESTORATION SERVICE SUPERVISOR Pulse 79 08/31/2023 5:00 PM HOME RESTORATION SERVICE SUPERVISOR Temperature 36.9 C (98.4 F) 08/31/2023 3:04 PM HOME RESTORATION SERVICE SUPERVISOR Respiratory Rate 17 08/31/2023 3:30 PM HOME RESTORATION SERVICE SUPERVISOR Oxygen Saturation 99% 08/31/2023 5:00 PM HOME RESTORATION SERVICE SUPERVISOR Inhaled Oxygen Concentration - - Weight 90.7 kg (200 lb) 08/31/2023 3:15 PM HOME RESTORATION SERVICE SUPERVISOR Height 162.6 cm (5' 4) 08/31/2023 3:04 PM HOME RESTORATION SERVICE SUPERVISOR Body Mass Index 34.33 08/31/2023 3:04 PM HOME RESTORATION SERVICE SUPERVISOR Plan of Treatment Health Maintenance Due Date [...] this topic Insurance [place] MEDICARE C [facility] Care Teams Front End Loader Driver Relationship Specialty Start Date End Date Madhu Tilley MD [address] [facility] [place], [place] [id number] PCP - General Internal Medicine 08/31/23
--- OUTSIDE RECORDS SUMMARY | 2025-01-09 13:20 | XMS_ITS | Patient Health Record ---
Author Organization [facility] Address [address] [place] [address] Care Team Providers Care Railroad Engineer Name Role Phone Madhu Tilley Primary Care [...] Problem Status W/U Status Risk Notes Problem 010321905 Hypomagnesemia (E83.42) Active confirmed Problem 99748456 Other chronic pa in (G89.29) Active confirmed Problem 595747648 Lumbago with sciatica, unspecified side (M54.40) Active confirmed Problem 544060161 Overactive bladd er (N32.81) Active confirmed Problem 68776668 Mood disorder (F39) Active confirmed Problem Posttraumatic stress disorder (86112639) PTSD (post-traumatic stress disorder) (F43.10) Active confirmed Problem 89922125 Vitamin D defici ency (E55.9) Active confirmed Problem Seizure disorder (694325857) Seizure disorder (G40.909) Active confirmed Problem Iron deficiency anemia (14563228) Iron deficiency anemia (D50.9) Active confirmed Problem 91386386 Chronic fatigue (R53.82) Active confirmed Problem Plantar fasciitis (884129795) Plantar fasciitis (M72.2) Active confirmed Problem Moderate recurrent major depression (41892910) Moderate episode of recurrent major depressive disorder (F33.1) 2017 Active confirmed Problem Backache (532938148) Dorsalgia (M54.9) Active confirmed Problem 410638925 Obesity (BMI 30-39.9) (E66.9) Active confirmed Problem 692618156 Panic attacks (F41.0) Active confirmed Problem 90180588 Essential hypertension (I10) 2018 Active confirmed Problem 99323957 Migraine without status migrainosus, not intractable, unspecified migraine type (G43.909) Active confirmed SEEing NEUROLOGIST Problem 67906613 Hyperparathyroid ism (E21.3) Active confirmed Problem 213855346 Excoriation (skin-picking) disorder (F42.4) Active confirmed Problem Malabsorption syndrome (54652227) Malabsorption due to intolerance, not elsewhere classified (K90.49) Active confirmed Problem 83999999 Kidney stones (N20.0) Active confirmed Problem Body mass index 30+ - obesity (758366149) Body mass index (BMI) of 30.0-30.9 in adult (Z68.30) Active confirmed Problem Obesity (832771443) Obesity, unspecified classification, unspecified obesity type, unspecified whether serious comorbidity present (E66.9) Active confirmed Problem History of bariatric surgical procedure (450610906) Gastric bypass status for obesity (Z98.84) 2022 Active confirmed Problem 391322734 Gastroesophageal reflux disease, unspecified whether esophagitis present (K21.9) Active confirmed Problem 57689735 Multinodular goi ter (nontoxic) (E04.2) Active confirmed Problem Metabolic syndrome (958852094) Metabolic syndrome (E88.810) Active confirmed Vital Signs Heart Rate 91 /min 07/25/2024 Respiratory Rate 16 /min 07/25/2024 Oximetry 91 % 07/25/2024 Blood pressure diastolic 80 mm Hg 07/25/2024 Height 64 in 07/25/2024 Blood pressure systolic 128 mm Hg 07/25/2024 Weight 203.2 lbs 07/25/2024 BMI 34.88 kg/m2 07/25/2024 Encounters Encounter Location Date Provider Diagnosis [address] [address] 05/30/2024 Madhu Tilley Plantar fasciitis M7 2.2 [...] Metabolic syndrome E88.810 and Dietary counseling Z71.[address] [address] 06/28/2024 Madhu Tilley Nutritional counseli ng Z71.3 ; Plantar fasciitis M72.2 ; Dorsalgia of multiple sites in spine M54.9 ; Migraine without status migrainosus, not intractable, unspecified migraine type G43.909 ; Cervical myofascial pain syndrome M79.18 ; Right hip pain M25.551 ; Dorsalgia M54.9 ; Body mass index (BMI) of 30.0-30.9 in adult Z68.30 and Seizure disorder G40.[address] [address] 07/25/2024 Madhu Tilley Nutritional counseli ng Z71.3 and DVT of right axillary vein, acute I82.A11 [address] [address] 08/21/2024 Madhu Tilley Body mass index (BMI ) of 30.0-30.9 in adult Z68.30 and DVT of right axillary vein, acute I82.A11 [facility] [address] [place] [address] 04/04/2024 Madhu Tilley Breast cancer screen ing by mammogram Z12.[address] [address] 08/10/2024 Madhu Tilley [address] [address] 09/05/2024 Madhu Tilley [address] [address] 09/26/2024 Madhu Tilley UTI (urinary tract infection) [...] End Date [employer] Medicare [address] [address] [place] [address] [id number] Misti Bai Self - patient is the insured 3 3 [employer] Medicare [address] [address] [place] [address] [id number] Misti Bai Self - patient is the insured 4 MEDICAID [address] [place] [address] [id number] Misti Bai Self - patient is the [...]
--- NOTE | 2025-01-09 15:03 | ED_ITS ---
HPI - Female Genitourinary General Chief complaint: Urogenital-Female <GENET Spann Last Filed: 01/09/25 19:20> Stated complaint: UTI-trouble urinating-kidney stones <GENET Spann Last Filed: 01/09/25 19:20> Time Seen by Provider: 01/09/25 15:04 <GENET Spann Last Filed: 01/09/25 19:20> Focused HPI: Patient is a 54 y/o female, with PMH of gastric bypass surgery, frequent UTIs/kidney stones, who presents to the ED with c/o L flank pain and urinary complaints. Patient reports she was recently admitted here for kidney stone and SBO. Was diagnosed with a UTI during hospitalization, finished course of Amoxicillin, but states sx's have not resolved. Reports left flank/abd pain, difficulty urinating, urgency, feeling of incomplete emptying, N/V/dry heaving, decreased PO intake, chills yesterday. Denies known fevers. Sees Dr. Mejia. GENERAL: Mildly uncomfortable-appearing, well-nourished, and in no acute distress. HEAD: Normocephalic, atraumatic. CHEST: Clear to auscultation. ?No respiratory distress. HEART: Regular rate and rhythm.? ABD: TTP throughout LLQ, L CVA region. NEURO: ?Alert and oriented x3. Patient screened in triage and initial orders placed.? ?Additional care and disposition to be based upon?diagnostic testing and treatment. <GENET Spann Last Filed: 01/09/25 19:20> Source: patient and old records reviewed <GENET Spann Last Filed: 01/09/25 19:20> Mode of arrival: ambulatory <GENET Spann Last Filed: 01/09/25 19:20> Limitations: no limitations <GENET Spann Last Filed: 01/09/25 19:20> Related Data Home medications: Home Medications ?Medication ?Instructions ?Recorded ?Confirmed ?Last Taken ?Type levetiracetam 1,000 mg tablet 1,000 mg PO Q12H 11/21/20 12/23/24 12/22/24 09:00 History phentermine 15 mg capsule 15 mg PO DAILY 06/05/24 12/23/24 12/22/24 09:00 History apixaban 5 mg tablet (Eliquis) 5 mg PO .Twice Daily 12/23/24 12/23/24 Unknown History tizanidine 4 mg tablet 4 mg PO QID PRN muscle spasticity 12/23/24 12/23/24 Unknown History <Sweetie Chavez PA-C - Last Filed: 01/09/25 19:20> Allergies/Adverse reactions: Allergies Allergy/AdvReac Type Severity Reaction Status Date / Time esomeprazole Allergy Unknown Hives Verified 01/09/25 19:00 iodine Allergy Unknown Swelling Verified 01/09/25 19:00 of Lip/Tongue/Throat ketorolac (From Toradol) Allergy Hives Verified 01/09/25 19:00 Contrast Media Allergy Unknown Swelling Uncoded 01/09/25 19:00 of Lip/Tongue/Throat <Sweetie Chavez PA-C - Last Filed: 01/09/25 19:20> Review of Systems 2 Review of Systems: All systems reviewed & are unremarkable except as noted in HPI and below <Hilary Angelo APRN - Last Filed: 01/09/25 22:29> [facility] Past Medical History Medical History: Medical History Bulging disc L5-S1 Finger fracture DDD (degenerative disc disease) Arthritis Depression Anxiety Epilepsy Migraine Abnormal uterine bleeding UTI (urinary tract infection) Gallbladder disease Kidney stone <Sweetie Chavez PA-C - Last Filed: 01/09/25 19:20> Surgical History Surgical History: Surgical History History of ventral hernia repair History of back surgery Status post right foot surgery x2 H/O tubal ligation H/O: hysterectomy History of x4 History of urethral stent Rt H/O lithotripsy H/O resection of small bowel History of gastric bypass History of cholecystectomy Hx of tonsillectomy <Sweetie Chavez PA-C - Last Filed: 01/09/25 19:20> Family History Family History: Family History Mother Hypertension H/O heart artery stent Father Family history of diabetes mellitus in first degree relative Patient's father is Family history of chronic obstructive pulmonary disease, Onset Age: 71 <Sweetie Chavez PA-C - Last Filed: 01/09/25 19:20> Social History Social History: Social History Social History: Surrogate medical decision maker: Jonathan Golden, spouse. Code status: full code. Smoking status: Never smoker Second hand tobacco smoke exposure: No Alcohol intake: never Substance use: never Substance use type: does not use Do You Feel Safe in your Home?: Yes Lack of Transportation: No Lack of Food: Never True Current Housing: I Have Housing Concerned About Future Housing: No Difficulty Paying Gas/Electric Bills: No Difficulty Paying for Meds: No Currently Unemployed: No Education: Trade/Vocational Certificate Difficulty w/ Childcare or Family Care: No Additional living arrangements comments: The patient lives with her and 9-year-old son in [place]. Additional occupation/education comments: Disabled. Spiritual care concerns: No <GENET Spann Last Filed: 01/09/25 19:20> Exam 2 Narrative: GENERAL: Well appearing, well-nourished, non-toxic, in no acute distress. HEAD: Normocephalic, atraumatic. NECK: Supple. No adenopathy, no masses. RESPIRATORY: Airway patent, respirations nonlabored. Clear to auscultation bilaterally, no rales, rhonchi, wheezing. CARDIOVASCULAR: Regular rate and rhythm without murmurs, rubs, or gallops. Peripheral pulses 2+ and equal bilaterally. +L CVA tenderness ABDOMINAL: Soft, tender bilateral lower quadrants, nondistended, no hepatosplenomegaly. Normoactive BS. MUSCULOSKELETAL: Moves all extremities. Strength/ROM intact without gross deformities. SKIN: Warm, dry, normal color. No rashes. NEURO: A&O X3. Speech clear. Cranial nerves II-XII intact. No ataxic movements. PSYCHIATRIC: Appropriate mood and affect. Normal interaction. <Hilary Angelo, CHIEF MEDICAL OFFICER - Last Filed: 01/09/25 22:29> Course Vital Signs Vital signs: Vital Signs Temperature 36.4 C 01/09/25 13:17 Pulse Rate 103 H 01/09/25 13:17 Respiratory Rate 16 01/09/25 13:17 Blood Pressure 146/87 H 01/09/25 13:17 Pulse Oximetry 99 01/09/25 13:17 Oxygen Delivery Room Air 01/09/25 13:17 Temperature 36.4 C 01/09/25 18:58 Pulse Rate 97 01/09/25 20:46 Respiratory Rate 22 H 01/09/25 20:46 Blood Pressure 160/99 H 01/09/25 20:46 Pulse Oximetry 100 01/09/25 20:46 Oxygen Delivery Room Air 01/09/25 18:58 <GENET Spann Last Filed: 01/09/25 19:20> Vital Signs Temperature 36.4 C 01/09/25 13:17 Pulse Rate 103 H 01/09/25 13:17 Respiratory Rate 16 01/09/25 13:17 Blood Pressure 146/87 H 01/09/25 13:17 Pulse Oximetry 99 01/09/25 13:17 Oxygen Delivery Room Air 01/09/25 13:17 Temperature 36.4 C 01/09/25 18:58 Pulse Rate 97 01/09/25 20:46 Respiratory Rate 22 H 01/09/25 20:46 Blood Pressure 160/99 H 01/09/25 20:46 Pulse Oximetry 100 01/09/25 20:46 Oxygen Delivery Room Air 01/09/25 18:58 <Hilary Angelo, CHIEF MEDICAL OFFICER - Last Filed: 01/09/25 22:29> MDM - Female Genitourinary MDM Narrative Medical decision making narrative: MSE by ROSS in triage. <GENET Spann Last Filed: 01/09/25 19:20> MSE by ROSS in triage. Patient is a 54 y/o female, with PMH of gastric bypass surgery, frequent UTIs/kidney stones, who presents to the ED with c/o L flank pain and urinary complaints. Patient reports she was recently admitted here for kidney stone and SBO. Was diagnosed with a UTI during hospitalization, finished course of Amoxicillin, but states sx's have not resolved. Reports left flank/abd pain, difficulty urinating, urgency, feeling of incomplete emptying, N/V/dry heaving, decreased PO intake, chills yesterday. Denies known fevers. Labs Ordered: CBC, CMP, UA Imaging Ordered: CT abdomen pelvis with contrast Medications Ordered: Cefepime 2 g IV, 1 L normal saline IV bolus, morphine 4 mg IV, Phenergan 25 mg IM, Augmentin p.o. Results: Pt's CT scan indicates Bilateral nonobstructing renal calculi. Diagnosis: Urinary tract infection Patient Education/Shared MDM: Results of lab work and imaging shared with patient. She endorses improvement of symptoms following medication administration. Pt was recently put on a short course of Augmentin, so that antibiotic will be restarted and extended, as her previous urinary tract infections were susceptible to this medication. She will also be given a one time dose of Cefepime here in the ER, as her previous urinary tract infections have also been susceptible to this antibiotic. Patient strongly advised to maintain hydration status upon discharge and follow-up with their urologist next week, as planned. She will be discharged home with a prescription for Augmentin. Pt declines a prescription for Pyridium. Strict return precautions provided. It was explained to pt that this is a trial sending her home with oral antibiotics and she needs to return if she starts running a fever, her symptoms do not improve in a couple of days, or she starts experiencing severe back or abdominal pain. Patient verbalized understanding and is in agreement with plan. Vital signs stable at time of discharge. All questions answered. < Hilary Angelo APRN - Last Filed: 01/09/25 22:29> Differential Diagnosis Differential diagnosis: Likely urinary tract infection <Hilary Angelo APRN - Last Filed: 01/09/25 22:29> Lab Data Attestation: I reviewed the patient's lab results. <Hilary Angelo APRN - Last Filed: 01/09/25 22:29> Result diagrams: 01/09/25 15:44 01/09/25 15:44 <Sweetie Chavez PA-C - Last Filed: 01/09/25 19:20> Labs: Lab Results 01/09/25 Range/Units 15:44 WBC 8.2 (4.5-10.0) K/mm3 RBC 5.14 (4.2-5.4) M/mm3 Hgb 13.6 (12.0-15.0) g/dL Hct 43.9 (37.0-47.0) % MCV 85.4 (80-100) fl MCH 26.5 (26-34) pg MCHC 31.0 L (32-36) g/dl RDW 15.4 H (11.5-14.5) % Plt Count 327 (150-375) k/mm3 MPV 9.4 (7.4-10.4) fl Immature Gran % (Auto) 0.5 (0-0.5) % Neut % (Auto) 54.4 (45.5-73.1) % Lymph % (Auto) 36.0 (18.3-44.2) % Tyler % (Auto) 7.3 (2.6-8.5) % Eos % (Auto) 0.9 (0-4.4) % Baso % (Auto) 0.9 (0.2-1.2) % Lymph # (Auto) 2.94 (0.9-3.2) K/mm3 Tyler # (Auto) 0.6 (0.1-0.6) K/mm3 Eos # (Auto) 0.1 (0-0.3) K/mm3 Baso # (Auto) 0.1 (0.0-0.1) K/mm3 Abs Immat Gran (auto) 0.04 H (0.00-0.031) K/mm3 Absolute Neuts (auto) 4.5 (1.3-6.7) K/mm3 Absolute Nucleated RBC 0.000 (0.0-0.012) K/mm3 Nucleated RBC % 0.0 (0.0-0.2) % Sodium 142 (137-145) mmol/L Potassium 3.7 (3.4-5.0) mmol/L Chloride 112 H (98-107) mmol/L Carbon Dioxide 18 L (22-30) mmol/L Anion Gap 12 (4-12) mmol/L BUN 11 (7-17) mg/dL Creatinine 0.72 (0.7-1.0) mg/dL Estim Creat Clear Calc Not Reportable Estimated GFR > 60 (59 - ) Glucose 78 (65-110) mg/dL Calcium 9.4 (8.4-10.2) mg/dL Total Bilirubin 0.6 (0.2-1.3) mg/dL AST 29 (14-36) U/L ALT 27 (6-35) U/L Alkaline Phosphatase 97 (38-126) U/L Total Protein 7.0 (6.3-8.2) g/dL Albumin 4.3 (3.5-5.1) g/dL Urine Color Yellow (Yellow) Urine Appearance Cloudy H (Clear) Urine pH 6.0 (5.0-9.0) Ur Specific Teachey 1.025 (1.001-1.035) Urine Protein Trace (Negative) mg/dL Urine Glucose (UA) Negative (Negative) mg/dL Urine Ketones Trace H (Negative) mg/dL Ur Blood (Man) 3+ H (Negative) Urine Nitrate Positive H (Negative) Urine Bilirubin Negative (Negative) Urine Urobilinogen 1.0 (<2.0) mg/dL Leukocyte Esterase Rfl 3+ H (Negative) PATRICK/UL Urine RBC >100 H (0-2) /hpf Urine WBC >100 H (0-3) /hpf Ur Squamous Epith Cells Occasional (Few) /hpf Urine Bacteria 4+ /hpf Urine Casts 0-2 <Sweetie Chavez PA-C - Last Filed: 01/09/25 19:20> Lab Results 01/09/25 Range/Units 15:44 WBC 8.2 (4.5-10.0) K/mm3 RBC 5.14 (4.2-5.4) M/mm3 Hgb 13.6 (12.0-15.0) g/dL Hct 43.9 (37.0-47.0) % MCV 85.4 (80-100) fl MCH 26.5 (26-34) pg MCHC 31.0 L (32-36) g/dl RDW 15.4 H (11.5-14.5) % Plt Count 327 (150-375) k/mm3 MPV 9.4 (7.4-10.4) fl Immature Gran % (Auto) 0.5 (0-0.5) % Neut % (Auto) 54.4 (45.5-73.1) % Lymph % (Auto) 36.0 (18.3-44.2) % Tyler % (Auto) 7.3 (2.6-8.5) % Eos % (Auto) 0.9 (0-4.4) % Baso % (Auto) 0.9 (0.2-1.2) % Lymph # (Auto) 2.94 (0.9-3.2) K/mm3 Tyler # (Auto) 0.6 (0.1-0.6) K/mm3 Eos # (Auto) 0.1 (0-0.3) K/mm3 Baso # (Auto) 0.1 (0.0-0.1) K/mm3 Abs Immat Gran (auto) 0.04 H (0.00-0.031) K/mm3 Absolute Neuts (auto) 4.5 (1.3-6.7) K/mm3 Absolute Nucleated RBC 0.000 (0.0-0.012) K/mm3 Nucleated RBC % 0.0 (0.0-0.2) % Sodium 142 (137-145) mmol/L Potassium 3.7 (3.4-5.0) mmol/L Chloride 112 H (98-107) mmol/L Carbon Dioxide 18 L (22-30) mmol/L Anion Gap 12 (4-12) mmol/L BUN 11 (7-17) mg/dL Creatinine 0.72 (0.7-1.0) mg/dL Estim Creat Clear Calc Not Reportable Estimated GFR > 60 (59 - ) Glucose 78 (65-110) mg/dL Calcium 9.4 (8.4-10.2) mg/dL Total Bilirubin 0.6 (0.2-1.3) mg/dL AST 29 (14-36) U/L ALT 27 (6-35) U/L Alkaline Phosphatase 97 (38-126) U/L Total Protein 7.0 (6.3-8.2) g/dL Albumin 4.3 (3.5-5.1) g/dL Urine Color Yellow (Yellow) Urine Appearance Cloudy H (Clear) Urine pH 6.0 (5.0-9.0) Ur Specific Te[place]y 1.025 (1.001-1.035) Urine Protein Trace (Negative) mg/dL Urine Glucose (UA) Negative (Negative) mg/dL Urine Ketones Trace H (Negative) mg/dL Ur Blood (Man) 3+ H (Negative) Urine Nitrate Positive H (Negative) Urine Bilirubin Negative (Negative) Urine Urobilinogen 1.0 (<2.0) mg/dL Leukocyte Esterase Rfl 3+ H (Negative) PATRICK/UL Urine RBC >100 H (0-2) /hpf Urine WBC >100 H (0-3) /hpf Ur Squamous Epith Cells Occasional (Few) /hpf Urine Bacteria 4+ /hpf Urine Casts 0-2 <Hilary Angelo APRN - Last Filed: 01/09/25 22:29> Imaging Data Attestation: I personally reviewed and interpreted this imaging study as follows: < Hilary Angelo APRN - Last Filed: 01/09/25 22:29> Radiologist's impression: Impressions Abdomen/Pelvis CT 01/09/25 16:56 IMPRESSION: Bilateral nonobstructing renal calculi. No acute findings within the abdomen or pelvis, as detailed above. <Hilary Angelo APRN - Last Filed: 01/09/25 22:29> Discharge Plan Discharge Clinical Impression: Right flank pain UTI (urinary tract infection) Qualifiers: Urinary tract infection type: acute cystitis Hematuria presence: with hematuria Qualified Code(s): N30.01 - Acute cystitis with hematuria <Sweetie Chavez PA-C - Last Filed: 01/09/25 19:20> Patient Disposition: Home <GENET Spann Last Filed: 01/09/25 19:20> Condition: Stable <GENET Spann Last Filed: 01/09/25 19:20> Instructions: Antibiotic Form, Urinary Tract Infection in Women (ED) <GENET Spann Last Filed: 01/09/25 19:20> Additional Instructions: Please return to the ER with any worsening symptoms. Follow-up with primary care provider as soon as possible and your urologist as discussed. Take all medications as prescribed, including regularly scheduled medications. Complete your full dose of antibiotics. You may use Tylenol at home for pain control. <Sweetie Chavez PA-C - Last Filed: 01/09/25 19:20> Patient Language: French <Sweetie Chavez PA-C - Last Filed: 01/09/25 19:20> Prescriptions: New promethazine 25 mg tablet 25 mg PO TID PRN (Reason: nausea and vomiting) Qty: 20 0RF amoxicillin-pot clavulanate 875-125 mg tablet 1 tablet PO Q12H Qty: 20 0RF No Action levetiracetam 1,000 mg tablet 1,000 mg PO Q12H phentermine 15 mg capsule 15 mg PO DAILY tizanidine 4 mg tablet 4 mg PO QID PRN (Reason: muscle spasticity) Eliquis 5 mg tablet 5 mg PO .Twice Daily amoxicillin-pot clavulanate [Augmentin] 500-125 mg Tablet 1 tablet PO Q12HR Qty: 7 0RF promethazine 12.5 mg tablet 6.25 mg PO TID PRN (Reason: nausea) Qty: 3 0RF Rx Instructions: 3 doses during day; last dose no later than 4 hr before bedtime tamsulosin 0.4 mg capsule 0.4 mg PO DAILY 7 Days Qty: 7 0RF hydrocodone-acetaminophen 5-325 mg tablet 1 tablet PO Q6H PRN (Reason: pain) Qty: 20 0RF <Sweetie Chavez PA-C - Last Filed: 01/09/25 19:20> Follow-up/Referrals: Madhu Tilley MD [Primary Care Provider] - <Sweetie Chavez PA-C - Last Filed: 01/09/25 19:20> Stand Alone Forms: Work/School Release IP <Sweetie Chavez PA-C - Last Filed: 01/09/25 19:20> Time of Disposition: 22:27 <Sweetie Chavez PA-C - Last Filed: 01/09/25 19:20> 22:27 <Hilary Angelo APRN - Last Filed: 01/09/25 22:29>
--- OUTSIDE RECORDS SUMMARY | 2025-01-09 15:09 | XMS_ITS | CONTINUITY OF CARE DOCUMENT ---
Author Name bruno carr Address Unknown Organization [facility] Address [address] [facility] [address] [place] [address] Phone [phone] Care Team Providers Care Cupola Melting Supervisor Name Role Phone Liseth GUERRERO, Yung Unavailable GAVINO QUINTEROS MD Unavailable MADDY BAIRD MD Unavailable [phone] PROBLEMS Condition Status Date Provider Notes [...] In-person encounter Office Visit Yung Childers MD [facility] HTNh/o Kidney stones - In-person encounter Office Visit Yung Childers MD [facility] - In-person encounter Office Visit Yung Childers MD [facility] - In-person encounter Office Visit Yung Childers MD [facility] - In-person encounter Office Visit Jaime Beck MD [facility] CHEST PAIN-02/21 NUC NEGSHORTNESS OF BREATH;NML, CXR, BNP AND DDIMER 09LVH;NML EF 02/21DYSPNEA ON EXERTION;WILL DO SPIROMETRYOBESITY;CA USE OF SOB? VITAL SIGNS Date Observation Value Provider Body Mass Index (Ratio) 32.78 kg/m2 Bud Childers MD blood pressure, diastolic 62 mm[Hg] Colton pickering [place] blood pressure, systolic 100 mm[Hg] Savannah gabriel [place] oxygen saturation, oximetry 99 % Stanton [place] respiratory rate E&M 16 /min Vito [place] pulse rate 76 /min Vito [place] weight E&M 197 [lb_av] Stanton [place] height E&M 65 [in_i] [facility] Body Mass Index (Ratio) 32.45 kg/m2 Bud Childers MD blood pressure, cuff size regular Ke rri Jory blood pressure, diastolic 66 mm[Hg] Ke rri Jory blood pressure, systolic 110 mm[Hg] Cely Corley oxygen saturation, oximetry 97 % Nadia Corley respiratory rate E&M 18 /min Nadia giles pulse rate 42 /min Nadia vazquez weight E&M 195 [lb_av] Nadia Blackman [facility] height E&M 65 [in_i] Nadia Blackman [facility] Body Mass Index (Ratio) 33.28 kg/m2 Bud Childers MD blood pressure, cuff size regular Ke rri Jory blood pressure, diastolic 74 mm[Hg] Ke jacei Jory blood pressure, systolic 116 mm[Hg] Cely Corley oxygen saturation, oximetry 98 % Nadia Diazkhanh respiratory rate E&M 18 /min Nadia Portillo alclivejarod pulse rate 75 /min Nadia Blackman [facility] weight E&M 200 [lb_av] Nadia Diazyocastajenniferjose vazquez height E&M 65 [in_i] Nadia Diazyocastaethandereck [facility] Body Mass Index (Ratio) 32.95 kg/m2 Bud Childers MD blood pressure, cuff size regular Ke kiran Jory height E&M 65 [in_i] Nadia Hiral vazquez blood pressure, diastolic 80 mm[Hg] Ke kiran Jory blood pressure, systolic 122 mm[Hg] Cely aragon Jory oxygen saturation, oximetry 99 % Nadia Jory respiratory rate E&M 18 /min Nadia Portillo tisha pulse rate 87 /min Nadia Diazyocastadelano [facility] weight E&M 198 [lb_av] Nadia Diazoctavio [facility] blood pressure, diastolic 60 mm[Hg] Kyung [...] 4 times a day as needed Nadia Diazkhnah ATIVAN 0.5 MG ORAL TABLET active take [...] Payer name Policy type / Coverage type [employer] red green party ID AARP MEDICARE ADVANTAGE ([facility] COMPLETE PPO) Other [id number] ADVANCE DIRECTIVES Name Date DISCUSSED - NO [...] ..... One tab. daily Orders: S pirometry (CPT-52148) BP today: 101/60 Prior BP: / () [...] or scar. (03/04/2009) Orders: C omplete Echo (CPT-01841) Jaime Beck MD [place] due to obesity: [...] STR - Adenosine ZIO Holter DLCO - 54105 FRC - 95197 FVC - 92528 Complete Echo Complete Echo Spirometry HISTORY OF PROCEDURES Procedure Date Procedure Name Provider Procedure Notes S tatus Ambulatory BP Yung Childers MD comple dwight Stress EKG Al Maguire MD completed Regadenoson, 4 units Yung Childers MD completed Cardiolite, 2 units Yung Childers MD completed SPECT Images Shy Villasenor MD complet ed SNOMED-CT: 81541687 Physical Exam, Performed: Pulse Exam of Foot Yung Childers MD completed SNOMED-CT: 396234841 968187 Current Medications Documented Yung Childers MD completed SNOMED-CT: 83999339 Physical Exam, Performed: Pulse Exam of Foot Yung Childers MD completed SNOMED-CT: 147675916 248930 Current Medications Documented Yung Childers MD completed FVC / MVV with bronchodilator - 96086 Yung Childers MD completed FRC - 66791 Yung Childers MD complete d SpO2 - 86269 Yung Childers MD complet ed DLCO - 94273 Yung Childers MD complet ed IVAN Childers MD co mpleted SNOMED-CT: 26465510 Physical Exam, Performed: Pulse Exam of Foot Yung Childers MD completed EKG Yung Childers MD completed SNOMED-CT: 810300265 013700 Current Medications Documented Yung Childers MD completed
--- OUTSIDE RECORDS SUMMARY | 2025-01-09 15:09 | XMS_ITS | Clinical Summary ---
Author Organization [facility] Address [address] [place] [address] Phone Care Team Providers Care Warpman Name Role Phone Madhu Tilley MD Primary Care Provider [phone] Allergies Active Allergy Reactions Criticality Noted Date [...] Comments Blood Pressure 177/89 08/31/2023 5:00 PM FREIGHT COORDINATOR Pulse 79 08/31/2023 5:00 PM FREIGHT COORDINATOR Temperature 36.9 C (98.4 F) 08/31/2023 3:04 PM FREIGHT COORDINATOR Respiratory Rate 17 08/31/2023 3:30 PM FREIGHT COORDINATOR Oxygen Saturation 99% 08/31/2023 5:00 PM FREIGHT COORDINATOR Inhaled Oxygen Concentration - - Weight 90.7 kg (200 lb) 08/31/2023 3:15 PM FREIGHT COORDINATOR Height 162.6 cm (5' 4) 08/31/2023 3:04 PM FREIGHT COORDINATOR Body Mass Index 34.33 08/31/2023 3:04 PM FREIGHT COORDINATOR Plan of Treatment Health Maintenance Due Date [...] to complete this topic Insurance [place] MEDICARE [facility] Care Teams Warpman Relationship Specialty Start Date End Date Madhu Tilley MD [address] [place], [place] [id number] PCP - General Internal Medicine 08/31/23
--- OUTSIDE RECORDS SUMMARY | 2025-01-09 15:09 | XMS_ITS | Clinical Summary ---
Author Organization [facility] Address [address] [facility] [place] [address] Care Team Providers Care Automatic Spinning Lathe Setter Name Role Phone Madhu Tilley MD Primary Care Provider [phone] Source Comments [facility],non-owned Affiliates and Associated Physician Practices is amultiple site organization consisting of ambulatory clinics and hospital sitesin [place], [place], [place] and [place]. This disclosure is being madepursuant to the Care Everywhere program and may not contain all information available regarding this patient. Last updated 18.[facility] Allergies Active Allergy Reactions Criticality Noted Date [...] vitamin D, ergocalciferol , (Drisdol) 1.25 MG (94746 UT) capsule Take 1 (one) capsule by [...] fluticasone propionate (Flonase) 50 MCG/ACT nasal spray [place] 2 (two) sprays into each nostril once [...] and heating? Not hard at all 03/30/2023 [facility] - [...] at Female Legal Sex Female 10:00 AM HAT FORMER Gender Identity Female Sexual Orientation Straight Last [...] this topic Medical Devices Implanted Type Area Swing Frame Grinder Operator Device Identifier Shelf Expiration Date Model / Serial / Lot Graft Tissue Nushield 3x2cm [employer] [place] - [id number] Implanted:Qty: 1 on 10/22/2021 by Ramone Galloway MD at [facility] N/A: Back [employer] 05/05/2025 NO-[id number] / [id number] / Procedures Procedure Name Priority Date/Time Associated Diagnosis Comments BASIC METABOLIC PANEL (CALCIUM TOTAL) Routine 04/03/2023 3:08 AM CDT HEPATITIS SCREEN ACUTE Routine 02/21/2021 3:19 AM CDT HIV-1 HIV-2 ANTIGEN/ANTIBODY STAT 10/13/2018 11:33 AM HAT FORMER LIPID PROFILE Routine 09/22/2013 2:15 PM HAT FORMER Major Depressive Disorder, Recurrent Episode, Mild from [...] - 10.4 mg/dL 04/03/2023 4:27 AM CDT [facility] Anion Gap 8 6 - 16 mmol/L 04/03/2023 4:27 AM CDT [facility] BUN 16 7 - 26 mg/dL 04/03/2023 4:27 AM CDT [facility] Creatinine 0.69 0.57 - 1.11 mg/dL 04/03/2023 4:27 AM CDT [facility] eGFR by CKD-EPI >90 >=90 mL/min/1.7 3 m2 04/03/2023 4:27 AM CDT [facility] Blood BLOOD SPECIMEN / Unknown Venipuncture / Unknown 04/03/2023 3:08 AM CDT 04/03/2023 4:09 AM CDT us Jacqueline Jerome WESTERN TACK ASSEMBLY LINE WORKER-MICROCOMPUTER TECHNICIAN LAB - CHEMISTRY O RDERABLES Final Result Performing Organization Address [facility] de Phone Number [facility] [address] [place] [address] * HEPATITIS SCREEN ACUTE (02/21/2021 3:19 AM CDT) Pathologist [facility] HAV Antibody IgM Non Reactive Non Reactive 02/21/2021 4:52 AM CDT [facility] HBsAg Non Reactive Non Reactive 02/21/2021 4:52 AM CDT [facility] HBc Antibody IgM Non Reactive Non Reactive 02/21/2021 4:52 AM CDT [facility] HCV Antibody Screen Non Reactive Non Reactive 02/21/2021 4:52 AM CDT [facility] Blood BLOOD SPECIMEN / Unknown Venipuncture / Unknown 02/21/2021 3:19 AM CDT 02/21/2021 4:01 AM CDT Narrative [facility] - 02/21/2021 4:52 AM CDT Non Reactive - Antibodies to Hepatitis C virus (HCV) were not detected, result does not exclude early acute HCV infection. us Rylie Villalobos MD LAB - CHEMISTRY ORDERABLES Final Result Performing Organization Address [facility] de Phone Number [facility] [address] [place] [address] * HIV-1 HIV-2 ANTIGEN/ANTIBODY (10/13/2018 11:33 AM HAT FORMER) [facility] HIV Antigen/Antibod y 1 & 2 Non-reacti ve Non-react fredrick 10/13/2018 12:39 PM HAT FORMER [facility] Comment: Neither HIV-1 p24 Antigen nor HIV-1/HIV-2 Antibodies are detected. Blood BLOOD SPECIMEN / Unknown Venipuncture / Unknown 10/13/2018 11:33 AM HAT FORMER 10/13/2018 11:45 AM HAT FORMER us Scott Chun MD LAB - HEMATOLOGY ORDERABLES F inal Result [facility] [address] [place] [address], [facility] [phone] * LIPID PROFILE (09/22/2013 2:15 PM HAT FORMER) [facility] Cholesterol 149 <200 mg/dL 09/22/2013 3:18 PM HAT FORMER [facility] Triglycerides 79 <150 mg/dL 09/22/2013 3:18 PM HAT FORMER [facility] HDL Cholesterol 66 >40 mg/dL 4 3:18 PM [facility] Chol HDL Ratio 2.3 1.0 - 6.0 09/22/2013 3:18 PM HAT FORMER [facility] LDL Calculated 67 65 - 130 mg/dL 09/22/2013 3:18 PM HAT FORMER [facility] VLDL Calculated 16 10 - 40 mg/dL 09/22/2013 3:18 PM HAT FORMER [facility] Blood BLOOD SPECIMEN / Unknown Venipuncture / Unknown 09/22/2013 2:15 PM HAT FORMER 09/22/2013 2:29 PM HAT FORMER Narrative [facility] - 09/22/2013 3:18 PM HAT FORMER Lipid Profile Comment: CHOLESTEROL LEVEL..................CLINICAL INTERPRETATION LESS [...] - CHEMISTRY ORDERABLES Final Result [facility] [address] from Last 3 Months or Most Recently Relevant to Health Maintenance Additional Health Concerns Infection Onset Date Last Indicated ESBL Hx Comment:urine 11/08/2018 03/16/2023 [place] [address] [facility]GED MEDICARE ADV MEDICAID - [place] * Guarantor: PRASHANT FARLEY Account Type Relation to Patient Date of Phone Billing Address Personal/Family 1970 [address] [place] [address] Advance Directives * Full Code (Latest Code [...] 12:36 PM 09/17/2022 2:57 PM Care Teams Automatic Spinning Lathe Setter Relationship Specialty Start Date End Date Madhu Tilley MD [address] [place] [address] PCP - General Internal Medicine 03/17/23
--- OUTSIDE RECORDS SUMMARY | 2025-01-09 15:09 | XMS_ITS | Clinical Summary ---
Author Organization [facility] Address [address] [place] [address] Phone Care Team Providers Care Bingo Attendant Name Role Phone Madhu Tilley MD Primary Care Provider [phone] Allergies Active Allergy Reactions Criticality Noted Date [...] Comments Blood Pressure 113/80 09/16/2019 4:37 PM DOPEMAN Pulse 79 09/16/2019 4:37 PM DOPEMAN Temperature 36.4 C (97.6 F) 09/16/2019 1:11 PM DOPEMAN Respiratory Rate 18 09/16/2019 4:37 PM DOPEMAN Oxygen Saturation 95% 09/16/2019 4:37 PM DOPEMAN Inhaled Oxygen Concentration - - Weight 79.4 kg (175 lb) 09/16/2019 1:11 PM DOPEMAN Height 162.6 cm (5' 4) 09/16/2019 1:11 PM DOPEMAN Body Mass Index 30.04 09/16/2019 1:11 PM DOPEMAN Plan of Treatment Health Maintenance Due Date [...] Advance Directives For more information, please contact: [phone] * Full Code (Latest Code Status on File) Date Activated Date Inactivated Comments 07/16/2018 9:55 PM 07/19/2018 2:03 PM Care Teams Bingo Attendant Relationship Specialty Start Date End Date Madhu Tilley MD [address] [facility] [address] [place] [address] PCP - General Internal Medicine 08/27/19
--- OUTSIDE RECORDS SUMMARY | 2025-01-09 15:09 | XMS_ITS | Referral Summary ---
Author Organization [facility] Address [address] [place] [address] Care Team Providers Care Mathematics Professor Name Role Phone Kit Jonas MD Unavailable [phone] Madhu Tilley MD Primary Care Provider [phone] Allergies Active Allergy Reactions Criticality Noted Date [...] often do you attend chur ch or latter-day services? Never 02/04/2023 Do you belong to any clubs o r organizations such as anabaptism groups, unions, fraternal or athletic groups, or [...] file Legal Sex Female 2:16 AM SUPERVISOR OF RESEARCH Gender Identity Not on file Sexual Orientation Not on file Last Filed Vital Signs Vital Sign Reading Time Taken Comments Blood Pressure 149/87 09/18/2023 7:03 PM SUPERVISOR OF RESEARCH Pulse 80 09/18/2023 7:03 PM SUPERVISOR OF RESEARCH Temperature 37 C (98.6 F) 09/18/2023 7:03 PM SUPERVISOR OF RESEARCH Respiratory Rate 16 09/18/2023 7:03 PM SUPERVISOR OF RESEARCH Oxygen Saturation 100% 09/18/2023 7:03 PM SUPERVISOR OF RESEARCH Inhaled Oxygen Concentration - - Weight 88.5 kg (195 lb) 09/18/2023 2:48 PM SUPERVISOR OF RESEARCH Height 162.6 cm (5' 4) 06/06/2023 12:45 [...] CDT Narrative 05/10/2017 5:10 PM CDT Acc#: [id number] JOSE RAUL 0015 - Diag Mamm BI [...] M.D. TECHNOLOGIST: SHANE DUMONT TECHNOLOGIST MEDICAL IMAGING DENTAL EQUIPMENT INSTALLER AND SERVICER: [facility] TRANSCRIBE DATE/TIME: May 11 2017 4:05P RADIOLOGIST: MARJORIE FRIAS M.D. READ ON: May 10 2017 3:22P ORDERING DR: NADIA BROWN M.D. THIS DOCUMENT HAS BEEN ELECTRONICALLY SIGNED BY: MARJORIE FRIAS M.D. ON: May 11 2017 4:05P Attending: DENG JACOBSON Requesting: NADIA BROWN Requesting Attending Attending ID: [id number] Requesting ID: [id number] Report To 1 ID: [id number] Report To 1 Name: DENG JACOBSON Report To 1 FAX: [phone] Report To 2 ID: Report To 2 Name: , Report To 2 FAX: -- NextGen Order #: Procedure Note Miscellaneous, Not In File / Provider, MD Keren - 05/11/2017 Acc#: [id number] JOSE RAUL 0015 - Diag Mamm BI [...] M.D. TECHNOLOGIST: SHANE DUMONT TECHNOLOGIST MEDICAL IMAGING DENTAL EQUIPMENT INSTALLER AND SERVICER: [facility] TRANSCRIBE DATE/TIME: May 11 2017 4:05P RADIOLOGIST: MARJORIE FRIAS M.D. READ ON: May 10 2017 3:22P ORDERING DR: NADIA BROWN M.D. THIS DOCUMENT HAS BEEN ELECTRONICALLY SIGNED BY: MARJORIE FRIAS M.D. ON: May 11 2017 4:05P Attending: DENG JACOBSON Requesting: NADIA BROWN Requesting Attending Attending ID: [id number] Requesting ID: [id number] Report To 1 ID: [id number] Report To 1 Name: DENG JACOBSON Report To 1 FAX: [phone] Report To 2 ID: Report To 2 [...] IDPA MEDICARE [facility] Address: [address] [address] [place] [address] [facility] CLAIMS OFFICE [facility] MEDIC[place] [address] [address] [place] [address] [facility] MEDICARE ADVANTAGE IDPA [facility] MEDICARE ADVANTAGE [facility] Address: [address] [address] [place] [address] Advance Directives For more information, please contact: [phone] * Full Code (Latest Code Status on File) Date Activated Date Inactivated Comments 02/03/2023 7:52 PM 02/05/2023 5:54 PM * Full Code Date Activated Date Inactivated Comments 04/19/2018 11:35 AM 04/20/2018 8:58 PM * Full Code Date Activated Date Inactivated Comments 02/03/2018 12:56 AM 02/04/2018 7:24 PM Care Teams Mathematics Professor Relationship Specialty Start Date End Date Madhu Tilley MD PCP - General 07/04/20 Kit Jonas MD Surgeon General Surgery 02/04/18
--- OUTSIDE RECORDS SUMMARY | 2025-01-09 15:09 | XMS_ITS | Clinical Summary ---
Author Organization [facility] Address [address] [place] [address] Care Team Providers Care Dock Pumper Name Role Phone Kit Jonas MD Unavailable [phone] Madhu Tilley MD Primary Care Provider [phone] Allergies Active Allergy Reactions Criticality Noted Date [...] any clubs o r organizations such as restorationism groups, unions, fraternal or athletic groups, or [...] slept in a fci (including now)? No 02/04/2023 Housing Stability Vital [...] on file Legal Sex Female 2:16 AM SUPPLY TECH Gender Identity Not on file Sexual Orientation Not on file Obstetrics History Last Filed Vital Signs Vital Sign Reading Time Taken Comments Blood Pressure 149/87 09/18/2023 7:03 PM SUPPLY TECH Pulse 80 09/18/2023 7:03 PM SUPPLY TECH Temperature 37 C (98.6 F) 09/18/2023 7:03 PM SUPPLY TECH Respiratory Rate 16 09/18/2023 7:03 PM SUPPLY TECH Oxygen Saturation 100% 09/18/2023 7:03 PM SUPPLY TECH Inhaled Oxygen Concentration - - Weight 88.5 kg (195 lb) 09/18/2023 2:48 PM SUPPLY TECH Height 162.6 cm (5' 4) 06/06/2023 12:45 [...] CDT Narrative 05/10/2017 5:10 PM CDT Acc#: [id number] JOSE RAUL 0015 - Diag Mamm BI [...] M.D. TECHNOLOGIST: SHANE DUMONT TECHNOLOGIST MEDICAL IMAGING HACK SAW OPERATOR: [facility] TRANSCRIBE DATE/TIME: May 11 2017 4:05P RADIOLOGIST: MARJORIE FRIAS M.D. READ ON: May 10 2017 3:22P ORDERING DR: NADIA BROWN M.D. THIS DOCUMENT HAS BEEN ELECTRONICALLY SIGNED BY: MARJORIE FRIAS M.D. ON: May 11 2017 4:05P Attending: DENG JACOBSON Requesting: NADIA BROWN Requesting Attending Attending ID: [id number] Requesting ID: [id number] Report To 1 ID: [id number] Report To 1 Name: DENG JACOBSON Report To 1 FAX: [phone] Report To 2 ID: Report To 2 Name: , Report To 2 FAX: -- NextGen Order #: Procedure Note Miscellaneous, Not In File / Provider, MD Keren - 05/11/2017 Acc#: [id number] JOSE RAUL 0015 - Diag Mamm BI [...] Frias M.D. TECHNOLOGIST: RICARDO COLVINOLOGIST MEDICAL IMAGING HACK SAW OPERATOR: [facility] TRANSCRIBE DATE/TIME: May 11 2017 4:05P RADIOLOGIST: MARJORIE FRIAS M.D. READ ON: May 10 2017 3:22P ORDERING DR: NADIA BROWN M.D. THIS DOCUMENT HAS BEEN ELECTRONICALLY SIGNED BY: MARJORIE FRIAS M.D. ON: May 11 2017 4:05P Attending: DENG JACOBSON Requesting: NADIA BROWN Requesting Attending Attending ID: [id number] Requesting ID: [id number] Report To 1 ID: [id number] Report To 1 Name: DENG JACOBSON Report To 1 FAX: [phone] Report To 2 ID: Report To 2 Name: , Report To 2 FAX: -- NextGen Order #: Nadia Brown MD IMG MAMMO PROCEDURES E dited Result - Final from Last 3 Months or Most Recently Relevant to Health Maintenance Additional Health Concerns Infection Onset Date Last Indicated MDR gram neg/ESBL Comment:ESBL E.coli urine 11/07/17, 11/15/17, 04/16/18, 02/21/19 11/07/2017 02/21/2019 Insurance [employer] MEDICARE HUMAN CLAIMS OFFICE [facility] MEDICARE ADVANTAGE [place] [facility] MEDICARE ADVANTAGE [place] [facility] MEDICARE ADVANTAGE Advance Directives For more information, please contact: [phone] * Full Code (Latest Code Status on File) Date Activated Date Inactivated Comments 02/03/2023 7:52 PM 02/05/2023 5:54 PM * Full Code Date Activated Date Inactivated Comments 04/19/2018 11:35 AM 04/20/2018 8:58 PM * Full Code Date Activated Date Inactivated Comments 02/03/2018 12:56 AM 02/04/2018 7:24 PM Care Teams Dock Pumper Relationship Specialty Start Date End Date Madhu Tilley MD PCP - General 07/04/20 Kit Jonas MD Surgeon General Surgery 02/04/18
--- OUTSIDE RECORDS SUMMARY | 2025-01-09 15:09 | XMS_ITS | Encounter Summary ---
Author Organization [facility] Address [address] [place] [address] Care Team Providers Care Drug Safety Specialist Name Role Phone Unavailable Primary Care Provider Unavailabl e Prior Encounters Date Type Department Care Team Description 03/31/2022 Travel 03/31/2022 11:15 AM CDT Office Visit [facility] [address] [place] [address] Emperatriz Zuñiga DDS Dental caries unspecified (Primary Dx) 03/26/2022 Travel 03/26/2022 1:00 PM CDT Office Visit [facility] [address] [place] [address] Rustam Taylor DMD Last Filed [...] Analgesia: Fentanyl Intra-procedure monitoring: Blood pressure monitoring, desk monitor, continuous capnometry, continuous pulse oximetry, frequent [...] is stable for discharge or admission: yes Asphalt Heater Tender's Name:: Jonathan Emperatriz Zuñiga DDS ANESTHESIA ORDERABLES Final Re sult Visit Diagnoses Diagnosis Start Date Dental caries unspecified 03/31/2022 Insurance [employer] P[employer] [place] [employer] PPO [address] COMMERCIAL
--- OUTSIDE RECORDS SUMMARY | 2025-01-09 15:09 | XMS_ITS | Clinical Summary ---
Author Organization [facility] Address [address] [place] [address] Care Team Providers Care Salt Plant Operator Name Role Phone Unavailable Primary Care [...] Most Recently Relevant to Health Maintenance Insurance [employer] [address] [place] [id number]
[2025-01-09] MEDS: ONDANSETRON HCL ODT 4 MG TABLET PO (15:43)
[2025-01-09] MEDS: HYDROcodone/acetaminophen (*CRX) 5-325 MG TABLET 1 TAB PO ×2 (15:43→22:34)
[2025-01-09 15:52] LABS: Basophils Absolute Auto 0.1 K/mm3 (0.0-0.1); Basophils Percent Auto 0.9 % (0.2-1.2); Eosinophils Absolute Auto 0.1 K/mm3 (0-0.3); Eosinophils Percent Auto 0.9 % (0-4.4); Hematocrit 43.9 % (37.0-47.0); Hemoglobin 13.6 g/dL (12.0-15.0); Immature Granulocyte Absolute 0.04 K/mm3 (0.00-0.031); Immature Granulocyte Percent A 0.5 % (0-0.5); Lymphocytes Absolute Auto 2.94 K/mm3 (0.9-3.2); Mean Corpuscular Hemoglobin 26.5 pg (26-34); Mean Corpuscular Volume 85.4 fl (80-100); Mean Platelet Volume 9.4 fl (7.4-10.4); Monocytes Absolute Auto 0.6 K/mm3 (0.1-0.6); Monocytes Percent Auto 7.3 % (2.6-8.5); Neutrophils Absolute Auto 4.5 K/mm3 (1.3-6.7); Neutrophils Percent Auto 54.4 % (45.5-73.1); Platelet Count Result 327 k/mm3 (150-375); Red Blood Count 5.14 M/mm3 (4.2-5.4); Red Cell Distribution Width 15.4 % (11.5-14.5); White Blood Count 8.2 K/mm3 (4.5-10.0)
[2025-01-09 16:02] LABS: Add Urine Microscopic? YES; Appearance Urine Cloudy (Clear); Bacteria Urine 4+ /hpf; Bilirubin Urine Negative (Negative); Blood Urine 3+ (Negative); Color Urine Yellow (Yellow); Glucose Urine UA Negative (Negative); Ketones Urine Trace mg/dL (Negative); Leukocyte Esterase Ur 3+ LEU/UL (Negative); Nitrate Urine Positive (Negative); Non Pathogenic Casts 0-2; Protein Urine Trace mg/dL (Negative); RBC Urine >100 /hpf (0-2); Specific Grav Ur 1.025 (1.001-1.035); Squamous Epithelial Cell Urine Occasional /hpf (Few); WBC Urine >100 /hpf (0-3)
[2025-01-09 16:05] LABS: Alanine Aminotransferase 27 U/L (6-35); Albumin Level 4.3 g/dL (3.5-5.1); Alkaline Phosphatase 97 U/L (38-126); Anion Gap 12 mmol/L (4-12); Aspartate Amino Transferase 29 U/L (14-36); Bilirubin,Total 0.6 mg/dL (0.2-1.3); Blood Urea Nitrogen 11 mg/dL (7-17); Calcium 9.4 mg/dL (8.4-10.2); Carbon Dioxide 18 mmol/L (22-30); Chloride 112 mmol/L (98-107); Estimated Glomerular Filt Rate > 60; Glucose 78 mg/dL (65-110); Potassium 3.7 mmol/L (3.4-5.0); Sodium 142 mmol/L (137-145)
[2025-01-09 18:58] VITALS: BP 163/106; PULSE 97; RESP 16; TEMP 36.4; O2SAT 98
[2025-01-09] MEDS: PROMETHAZINE HCL 25 MG/ML AMPUL IM (20:13)
[2025-01-09] MEDS: SODIUM CHLORIDE 0.9% IV 1,000 ML 999 ML IV CONT (20:13)
[2025-01-09] MEDS: MORPHINE SULFATE (*CRX) 4 MG/ML INJ IV PUSH (20:13)
[2025-01-09] MEDS: AMOXICILLIN/CLAVULANATE K 875-125 MG TAB 1 TABLET PO (20:14)
[2025-01-09 20:46] VITALS: BP 160/99; PULSE 97; RESP 22; O2SAT 100
[2025-01-09] MEDS: CEFEPIME 2 GM/NS 50 ML 2 GM/50 ML BAG IVPB (21:19)
== END 2025-01-09 22:50 | disposition home or self-care (01) ==
PROVIDERS: Physician Assistant; Emergency Provider Registered Nurse; PCP Internal Medicine
DX: N30.01 Acute cystitis with hematuria (principal); Z98.84 Bariatric surgery status; Z79.01 Long term (current) use of anticoagulants; F41.8 Other specified anxiety disorders
CPT/HCPCS: 36415; 74176; 80053; 81001; 85025; 87077; 87086; 87186; 96361; 96365; 96372; 96375; 99284; A9270; J0692; J2270; J2550; J7030

== ENCOUNTER 2025-05-06 11:17 | Emergency (ER) | payer MEDICARE, MEDICAID, SELFPAY ==
--- NOTE | ~2025-05-06 | CT_ITS ---
CT ABDOMEN AND PELVIS WITHOUT CONTRAST Clinical History: LLQ and flank pain Comparison: CT 01/09/2025 Technique: Unenhanced axial images lung bases to symphysis pubis Coronal, sagittal reformats CT images acquired with automatic exposure control for dose reduction DLP: 963 mGy-cm Findings: Without intravenous contrast, sensitivity for detecting visceral parenchymal abnormalities decreased. Lung bases: Clear. Visualized heart and pericardium: Unremarkable. Liver: Unremarkable. Gallbladder: Removed. Spleen: Unremarkable. Pancreas: Unremarkable. Adrenal glands: Unremarkable. Kidneys: Right kidney- No hydronephrosis. A few stones, largest 4 mm. Left kidney- No hydronephrosis. Tiny stone. Small probable cortical cyst Distal esophagus/stomach: Postoperative changes. Small bowel loops: Normal caliber and wall thickness. Right hemiabdomen suture line Colon: Normal caliber and wall thickness. Normal appendix, lower mid abdomen. Nodes: No enlarged nodes. Peritoneum: No ascites. No free intraperitoneal air. Urinary bladder: Unremarkable. Uterus: Removed. Adnexa: No masses. Bones: No acute bony abnormality. Soft tissues: Unremarkable. Unopacified abdominal aorta: No aneurysmal dilatation. IMPRESSION: 1. No acute findings. 2. Small bilateral nephrolithiasis. No hydronephrosis. Reviewed, dictated and finalized at location R.
--- OUTSIDE RECORDS SUMMARY | 2025-05-06 11:19 | XMS_ITS | Clinical Summary ---
Author Organization [facility] Address [address] [place] [id number] Care Team Providers Care Cleat Thrower Name Role Phone Unavailable Primary Care Provider [...] Vaccines (1 of 2) 2020 COVID-19 Vaccine (1 - 2023-2 5 season) 2025 Meningococcal B Vaccine Aged Out No l onger eligible based on patient's age to complete this topic Meningococcal Vaccine Aged Out No parisa tereza eligible based on patient's age to complete this topic RSV Immunizations Under 20 Months Aged Out No longer eligible based on patient's age to complete this topic
--- OUTSIDE RECORDS SUMMARY | 2025-05-06 11:19 | XMS_ITS | Clinical Summary ---
Author Organization [facility] Address [address] [place] [address] Phone Care Team Providers Care Fitness And Wellness Coordinator Name Role Phone Madhu Tilley MD Primary Care Provider [phone] Allergies Active Allergy Reactions Criticality Noted Date [...] Comments Blood Pressure 177/89 08/31/2023 5:00 PM FIELD SERVICE ENGINEER Pulse 79 08/31/2023 5:00 PM FIELD SERVICE ENGINEER Temperature 36.9 C (98.4 F) 08/31/2023 3:04 PM FIELD SERVICE ENGINEER Respiratory Rate 17 08/31/2023 3:30 PM FIELD SERVICE ENGINEER Oxygen Saturation 99% 08/31/2023 5:00 PM FIELD SERVICE ENGINEER Inhaled Oxygen Concentration - - Weight 90.7 kg (200 lb) 08/31/2023 3:15 PM FIELD SERVICE ENGINEER Height 162.6 cm (5' 4) 08/31/2023 3:04 PM FIELD SERVICE ENGINEER Body Mass Index 34.33 08/31/2023 3:04 PM FIELD SERVICE ENGINEER Plan of Treatment Health Maintenance Due Date Last Done Comments Hepatitis C Virus (HCV) Screening 1970 Mammogram 1970 Pap Smear 1991 Cervical Cancer Screening (CCS) 2000 HPV/Cotest 2000 Hepatitis B Immunization (2 of 3 - 19+ 3-dose series) 10/30/2008 10/02/2008 Cologuard 2015 Colonoscopy 2015 Colorectal Cancer Screening 2015 Immunochemical Fecal Occult Blood 2015 Pneumococcal Immunization (5 0+ years) (1 of 1 - PCV) 2020 Zoster Immunization (1 of 2) 2020 Influenza Immunization (#1) 04/16/202509/2017, 07/17/2018 SARS-COV-2 Immunization (3 - season) 2025 07/01/2021, 05/28/2021 Respiratory Syncytial Virus (RSV) Immunization (Adult) (1 - 1-dose 75+ series) 2045 DTaP/Tdap/Td Immunization Discontinued 10/28/2012 TdaP Immunization Completed 10/28/2012 Human Papillomavirus (HPV) Immunization Aged Out No longer eligible based on patient's age to complete this topic Meningococcal Immunization (ACWY) Aged Out No longer eligible based on patient's age to complete this topic Rotavirus Immunization Aged Out No lo nger eligible based on patient's age to complete this topic Insurance [place]ICAID [place] MEDICARE C [employer] Care Teams Fitness And Wellness Coordinator Relationship Specialty Start Date End Date Madhu Tilley MD [address] [place] [address] PCP - General Internal Medicine 08/31/23
--- OUTSIDE RECORDS SUMMARY | 2025-05-06 11:19 | XMS_ITS | Clinical Summary ---
Author Organization [facility] Address [address] [place] [address] Phone Care Team Providers Care Hydrogeology Professor Name Role Phone Madhu Tilley MD Primary Care Provider [phone] Allergies Active Allergy Reactions Criticality Noted Date [...] Comments Blood Pressure 113/80 09/16/2019 4:37 PM PHYSIOTHERAPIST'S ASSISTANT Pulse 79 09/16/2019 4:37 PM PHYSIOTHERAPIST'S ASSISTANT Temperature 36.4 C (97.6 F) 09/16/2019 1:11 PM PHYSIOTHERAPIST'S ASSISTANT Respiratory Rate 18 09/16/2019 4:37 PM PHYSIOTHERAPIST'S ASSISTANT Oxygen Saturation 95% 09/16/2019 4:37 PM PHYSIOTHERAPIST'S ASSISTANT Inhaled Oxygen Concentration - - Weight 79.4 kg (175 lb) 09/16/2019 1:11 PM PHYSIOTHERAPIST'S ASSISTANT Height 162.6 cm (5' 4) 09/16/2019 1:11 PM PHYSIOTHERAPIST'S ASSISTANT Body Mass Index 30.04 09/16/2019 1:11 PM PHYSIOTHERAPIST'S ASSISTANT Plan of Treatment Health Maintenance Due Date [...] Td or Tdap) 10/28/2022 INFLUENZA VACCINE (#1) 2025 07/17/2018 Insurance MEDICARE PART A AND B Advance Directives For more information, please contact: [phone] * Full Code (Latest Code Status on File) Date Activated Date Inactivated Comments 07/16/2018 9:55 PM 07/19/2018 2:03 PM Care Teams Hydrogeology Professor Relationship Specialty Start Date End Date Madhu Tilley MD [address] [facility] [address] [place] [address] PCP - General Internal Medicine 08/27/19
--- OUTSIDE RECORDS SUMMARY | 2025-05-06 11:19 | XMS_ITS | Clinical Summary ---
Author Organization [facility] Address [address] [place] [address] Care Team Providers Care Heel Splitter Name Role Phone Kit Jonas MD Unavailable [phone] Madhu Tilley MD Primary Care Provider [phone] Allergies Active Allergy Reactions Criticality Noted Date [...] Epilepsy (HCC) Irregular heart beat Bipolar disorder Anxiety Bowel obstruction (HCC) Social History Tobacco Use Types Packs/Day Years Used Date Smoking Tobacco: Never Smokeless Tobacco: Never Tobacco Cessation:Counseling Given: Not Answered Alcohol Use Standard Drinks/Week Comments No 0 (1 standard drink = 0.6 oz pur e alcohol) Social Connection and Isolation Panel Answer Date Recorded In a typical week, how many times do you talk on the phone with family, friends, or neighbors? More than three times a week 02/04/2023 How often do you get togethe r with friends or relatives? More than three times a week 02/04/2023 How often do you attend chur ch or samaritan services? Never 02/04/2023 Do you belong to any clubs o r organizations such as moravian groups, unions, fraternal or athletic groups, or [...] on file Legal Sex Female 2:16 AM LAW REPORTER Gender Identity Not on file Sexual Orientation Not on file Obstetrics History Last Filed Vital Signs Vital Sign Reading Time Taken Comments Blood Pressure 149/87 09/18/2023 7:03 PM LAW REPORTER Pulse 80 09/18/2023 7:03 PM LAW REPORTER Temperature 37 C (98.6 F) 09/18/2023 7:03 PM LAW REPORTER Respiratory Rate 16 09/18/2023 7:03 PM LAW REPORTER Oxygen Saturation 100% 09/18/2023 7:03 PM LAW REPORTER Inhaled Oxygen Concentration - - Weight 88.5 kg (195 lb) 09/18/2023 2:48 PM LAW REPORTER Height 162.6 cm (5' 4) 06/06/2023 12:45 [...] or Tdap) 10/28/2022 10/28/2012 Influenza Vaccine (#1) 2025 8, 07/17/2018, 2015 Hepatitis B Screening Completed [...] CDT Narrative 05/10/2017 5:10 PM CDT Acc#: [id number] JOSE RAUL 0015 - Diag Mamm BI [...] M.D. TECHNOLOGIST: SHANE DUMONT TECHNOLOGIST MEDICAL IMAGING LEGAL AIDE: PSC TRANSCRIBE DATE/TIME: May 11 2017 4:05P RADIOLOGIST: MARJORIE FRIAS M.D. READ ON: May 10 2017 3:22P ORDERING DR: NADIA BROWN M.D. THIS DOCUMENT HAS BEEN ELECTRONICALLY SIGNED BY: MARJORIE FRIAS M.D. ON: May 11 2017 4:05P Attending: DENG JACOBSON Requesting: NADIA BROWN Requesting Attending Attending ID: [id number] Requesting ID: [id number] Report To 1 ID: [id number] Report To 1 Name: DENG JACOBSON Report To 1 FAX: [phone] Report To 2 ID: Report To 2 Name: , Report To 2 FAX: -- NextGen Order #: Procedure Note Miscellaneous, Not In File / Provider, MD Keren - 05/11/2017 Acc#: [id number] JOSE RAUL 0015 - Diag Mamm BI [...] Frias M.D. TECHNOLOGIST: RICARDO COLVINOLOGIST MEDICAL IMAGING LEGAL AIDE: [employer] TRANSCRIBE DATE/TIME: May 11 2017 4:05P RADIOLOGIST: MARJORIE FRIAS M.D. READ ON: May 10 2017 3:22P ORDERING DR: NADIA BROWN M.D. THIS DOCUMENT HAS BEEN ELECTRONICALLY SIGNED BY: MARJORIE FRIAS M.D. ON: May 11 2017 4:05P Attending: DENG JACOBSON Requesting: NADIA BROWN Requesting Attending Attending ID: [id number] Requesting ID: [id number] Report To 1 ID: [id number] Report To 1 Name: DENG JACOBSON Report To 1 FAX: [phone] Report To 2 ID: Report To 2 Name: , Report To 2 FAX: -- NextGen Order #: Nadia Brown MD IMG MAMMO PROCEDURES E dited Result - Final from Last 3 Months or Most Recently Relevant to Health Maintenance Additional Health Concerns Infection Onset Date Last Indicated MDR gram neg/ESBL Comment:ESBL E.coli urine 11/07/17, 11/15/17, 04/16/18, 02/21/19 11/07/2017 02/21/2019 Insurance [facility] MEDICARE [facility] CLAIMS OFFICE [facility] MEDICARE ADVANTAGE [employer] [facility] MEDICARE ADVANTAGE [employer]PA [facility] MEDICARE ADVANTAGE Advance Directives For more information, please contact: [phone] * Full Code (Latest Code Status on File) Date Activated Date Inactivated Comments 02/03/2023 7:52 PM 02/05/2023 5:54 PM * Full Code Date Activated Date Inactivated Comments 04/19/2018 11:35 AM 04/20/2018 8:58 PM * Full Code Date Activated Date Inactivated Comments 02/03/2018 12:56 AM 02/04/2018 7:24 PM Care Teams Heel Splitter Relationship Specialty Start Date End Date Madhu Tilley MD PCP - General 07/04/20 Kit Jonas MD Surgeon General Surgery 02/04/18
--- OUTSIDE RECORDS SUMMARY | 2025-05-06 11:19 | XMS_ITS | Clinical Summary ---
Author Organization [facility] Address [address] [place] [address] Care Team Providers Care Hydraulic Boom Operator Name Role Phone Madhu Tilley MD Primary Care Provider [phone] Source Comments [facility],non-owned Affiliates and Associated Physician Practices is amultiple site organization consisting of ambulatory clinics and hospital sitesin [place], [place], [place] and [place]. This disclosure is being madepursuant to the Care Everywhere program and may not contain all information available regarding this patient. Last updated 18.[facility] Allergies Active Allergy Reactions Criticality Noted Date [...] vitamin D, ergocalciferol , (Drisdol) 1.25 MG (20308 UT) capsule Take 1 (one) capsule by [...] fluticasone propionate (Flonase) 50 MCG/ACT nasal spray [place] 2 (two) sprays into each nostril once [...] and heating? Not hard at all 03/30/2023 [facility] Occupat ional Health - Occupational Stress [...] place to sleep or slept in a senior care (including now)? No 03/30/2023 Comments No Sex and Gender Information Value Date Recorded Sex Assigned at Female Legal Sex Female 10:00 AM RISK ENGINEER Gender Identity Female Sexual Orientation Straight Last [...] FLEX SIG - COLON CA SCREENING 1970 DTAP/TDAP/TD VACCINES (1 - Tdap) 1989 HEPATITIS B VACCINE (1 of 3 - 19+ 3-dose series) 1989 PAP SMEAR 1991 MAMMOGRAM 03/16/2013 03/16/2011 (Prev iously completed) LIPID TESTING 09/22/2018 09/22/2013 PNEUMOCOCCAL VACCINE 50+ (1 of 1 - PCV) 2020 ZOSTER VACCINE (1 of 2) 2020 DEPRESSION SCREENING 08/16/2024 MEDICARE AWV CALENDAR YEAR 2024 COVID-19 VACCINE (3 - 2024- season) 2025 07/01/2021, 05/28/2021 INFLUENZA VACCINE (#1) 2025 07/17/2018 SCREENING FOR DIABETES 04/03/2026 3, [...] this topic Medical Devices Implanted Type Area Tax Record Clerk Device Identifier Shelf Expiration Date Model / Serial / Lot Graft Tissue Nushield 3x2cm [facility] - [id number] Implanted:Qty: 1 on 10/22/2021 by Ramone Galloway MD at [facility] N/A: Back [employer] 05/05/2025 [id number] / [id number] / Procedures Procedure Name Priority Date/Time Associated Diagnosis Comments BASIC METABOLIC PANEL (CALCIUM TOTAL) Routine 04/03/2023 3:08 AM CDT HEPATITIS SCREEN ACUTE Routine 02/21/2021 3:19 AM CDT HIV-1 HIV-2 ANTIGEN/ANTIBODY STAT 10/13/2018 11:33 AM RISK ENGINEER LIPID PROFILE Routine 09/22/2013 2:15 PM RISK ENGINEER Major Depressive Disorder, Recurrent Episode, Mild from Last 3 Months or Most Recently Relevant to Health Maintenance Results * (ABNORMAL) BASIC METABOLIC PANEL (CALCIUM TOTAL) (04/03/2023 3:08 AM CDT) Pathologist [facility] Glucose 84 70 - 105 mg/dL 04/03/2023 [...] - 10.4 mg/dL 04/03/2023 4:27 AM CDT [facility] Anion Gap 8 6 - 16 mmol/L 04/03/2023 4:27 AM CDT [facility] BUN 16 7 - 26 mg/dL 04/03/2023 4:27 AM CDT [facility] Creatinine 0.69 0.57 - 1.11 mg/dL 04/03/2023 4:27 AM CDT [facility] eGFR by CKD-EPI >90 >=90 mL/min/1.7 3 m2 04/03/2023 4:27 AM CDT [facility] Blood BLOOD SPECIMEN / Unknown Venipuncture / Unknown 04/03/2023 3:08 AM CDT 04/03/2023 4:09 AM CDT us Jacqueline Jerome PHONE BANKER-THERAPEUTIC STRATEGY LEAD LAB - CHEMISTRY O RDERABLES Final Result Performing Organization Address [facility] de Phone Number [facility] [address] [place] [address] * HEPATITIS SCREEN ACUTE (02/21/2021 3:19 AM CDT) Pathologist [facility] HAV Antibody IgM Non Reactive Non Reactive 02/21/2021 4:52 AM CDT [facility] HBsAg Non Reactive Non Reactive 02/21/2021 4:52 AM CDT [facility] HBc Antibody IgM Non Reactive Non Reactive 02/21/2021 4:52 AM CDT [facility] HCV Antibody Screen Non Reactive Non Reactive 02/21/2021 4:52 AM CDT [facility] Blood BLOOD SPECIMEN / Unknown Venipuncture / Unknown 02/21/2021 3:19 AM CDT 02/21/2021 4:01 AM CDT Narrative [facility] - 02/21/2021 4:52 AM CDT Non Reactive - Antibodies to Hepatitis C virus (HCV) were not detected, result does not exclude early acute HCV infection. us Rylie Villalobos MD LAB - CHEMISTRY ORDERABLES Final Result Performing Organization Address [facility] de Phone Number [facility] [address] [place] [address] * HIV-1 HIV-2 ANTIGEN/ANTIBODY (10/13/2018 11:33 AM RISK ENGINEER) [facility] HIV Antigen/Antibod y 1 & 2 Non-reacti ve Non-react fredrick 10/13/2018 12:39 PM RISK ENGINEER [facility] Comment: Neither HIV-1 p24 Antigen nor HIV-1/HIV-2 Antibodies are detected. Blood BLOOD SPECIMEN / Unknown Venipuncture / Unknown 10/13/2018 11:33 AM RISK ENGINEER 10/13/2018 11:45 AM RISK ENGINEER us Scott Chun MD LAB - HEMATOLOGY ORDERABLES F inal Result [facility] [address] [place] [address], [facility] [phone] * LIPID PROFILE (09/22/2013 2:15 PM RISK ENGINEER) [facility] Cholesterol 149 <200 mg/dL 09/22/2013 3:18 PM RISK ENGINEER [facility] Triglycerides 79 <150 mg/dL 09/22/2013 3:18 PM RISK ENGINEER [facility] HDL Cholesterol 66 >40 mg/dL 4 3:18 PM RISK ENGINEER [facility] Chol HDL Ratio 2.3 1.0 - 6.0 09/22/2013 3:18 PM RISK ENGINEER [facility] LDL Calculated 67 65 - 130 mg/dL 09/22/2013 3:18 PM RISK ENGINEER [facility] VLDL Calculated 16 10 - 40 mg/dL 09/22/2013 3:18 PM RISK ENGINEER [facility] Blood BLOOD SPECIMEN / Unknown Venipuncture / Unknown 09/22/2013 2:15 PM RISK ENGINEER 09/22/2013 2:29 PM RISK ENGINEER Narrative [facility] - 09/22/2013 3:18 PM RISK ENGINEER Lipid Profile Comment: CHOLESTEROL LEVEL..................CLINICAL INTERPRETATION LESS [...] [facility] LAB - CHEMISTRY ORDERABLES Final Result [facility] [address] from Last 3 Months or Most Recently Relevant to Health Maintenance Additional Health Concerns Infection Onset Date Last Indicated ESBL Hx Comment:urine 11/08/2018 03/16/2023 [place] [address] [facility] MANAGED MEDICARE ADV MEDICAID - [place] * Guarantor: PRASHANT FARLEY Account Type Relation to Patient Date of Phone Billing Address Personal/Family 1970 [address] [place] [address] Advance Directives * Full Code (Latest Code [...] 12:36 PM 09/17/2022 2:57 PM Care Teams Hydraulic Boom Operator Relationship Specialty Start Date End Date Madhu Tilley MD [address] [place] [address] PCP - General Internal Medicine 03/17/23
--- OUTSIDE RECORDS SUMMARY | 2025-05-06 11:19 | XMS_ITS | Patient Health Record ---
Author Organization [facility] Address [facility] [address] Care Team Providers Care Inkjet Operator Name Role Phone Anum Lisa Primary Care Provider Angelina Willis Unavailable Unavailable Reason For Referral No Information Medications Medication SIG (Take, Route, Frequency, Duration) Notes Start Date End Date Status Xanax 2 MG Tablet take 1 tablet by ora l route 3 times every day if needed. Oral ([facility]) 07/06/2014 Active SEROquel 100 MG Tablet TAKE 1 TABLET BY ORAL ROUTE EVERY NIGHT Oral ([facility]) 06/29/2014 Active Keppra 500 MG Tablet take 1 tablet by or al route 2 times every day Oral ([facility]) Active Social History Social History [facility] Social Info Question Answer Notes Household/Enviromental Risk Factors: Any Patient/Famil y Concerns : No Do you have any social/cultu ral characteristics? Social Characteristics: Yes Highest level of education: Graduated High School Concerns with daily living situations: None Support from family/friends: Yes Participation in community activities: No Cultural Characteristics: No Communication Barriers Are: None Assessment of Health Literacy Understands how to take medication Yes Understands risks/side effects of medication Yes Drugs/Alcohol: Social Info Question Answer Notes Caffeine Intake: more than 4 cups per day Tea Problems Problem Type SNOMED Code ICD Code Onset Dates Problem Status W/U Status Risk Notes Problem Mild recurrent major depression (03530155) Major depressive disorder, recurrent episode, mild (296.31) 1 Active confirmed ([facility]) Added By: Angelina Garrett Problem Anxiety state (053954358) Anxiety state, unspecified (300.00) 1 Active confirmed ([facility]) Added By: Angelina Garrett Plan Of Treatment No Information Medical (General) History Surgical History Surgery Date(Month/Year) gastric bypass 2010 hernia repair 2011 lithotripsy October 2012 Hysterectomy
--- OUTSIDE RECORDS SUMMARY | 2025-05-06 11:20 | XMS_ITS | Encounter Summary ---
Author Organization [facility] Address [address] [place] [address] Care Team Providers Care Ophthalmology Technician Name Role Phone Unavailable Primary Care Provider Unavailabl e Prior Encounters Date Type Department Care Team Description 03/31/2022 Travel 03/31/2022 11:15 AM CDT Office Visit [facility] [address] [place] [address] Emperatriz Zuñiga DDS Dental caries unspecified (Primary Dx) 03/26/2022 Travel 03/26/2022 1:00 PM CDT Office Visit [facility] [address] [place] [address] Rustam Taylor DMD Last Filed [...] 15 MINUTES Routine 03/31/2022 11:15 AM CDT OS CONSULT Routine 03/31/2022 11:15 AM CDT 11 UL ALVEOLOPLASTY IN CONJUNCTION [...] Analgesia: Fentanyl Intra-procedure monitoring: Blood pressure monitoring, radiation monitor, continuous capnometry, continuous pulse oximetry, frequent [...] is stable for discharge or admission: yes Carbonation Equipment Operator's Name:: Jonathan Emperatriz Zuñiga DDS ANESTHESIA ORDERABLES Final Re sult Visit Diagnoses Diagnosis Start Date Dental caries unspecified 03/31/2022 Insurance [employer] PPO [place] [employer] PPO [address] COMMERCIAL
--- OUTSIDE RECORDS SUMMARY | 2025-05-06 11:20 | XMS_ITS | Clinical Summary ---
Author Organization [facility] Address [address] [place] [address] Care Team Providers Care Building Services Supervisor Name Role Phone Unavailable Primary Care Provider [...] Mouth 1970 Dental X-Ray: Panoramic 03/27/2025 03/26/2022 Procedures Procedure Name Priority Date/Time Associated Diagnosis Comments PANORAMIC RADIOGRAPHIC IMAGE Routine 03/26/2022 1:00 PM CDT from Last 3 Months or Most Recently Relevant to Health Maintenance Insurance PPO [facility] COMMERCIAL [address] COMMERCIAL
[2025-05-06 11:24] VITALS: BP 149/84; PULSE 84; RESP 16; TEMP 36.4; O2SAT 100
[2025-05-06 11:55] LABS: Hematocrit 40.8 % (37.0-47.0); Hemoglobin 12.5 g/dL (12.0-15.0); Immature Granulocyte Percent A 0.3 % (0-0.5); Lymphocytes Absolute Auto 2.60 K/mm3 (0.9-3.2); Mean Corpuscular HGB Conc 30.6 g/dl (32-36); Mean Corpuscular Hemoglobin 25.9 pg (26-34); Mean Corpuscular Volume 84.6 fl (80-100); Nucleated Red Blood Cells Absolute Auto 0.000 K/mm3 (0.0-0.012); Nucleated Red Blood Cells Perc 0.0 % (0.0-0.2); Platelet Count Result 285 k/mm3 (150-375); Red Blood Count 4.82 M/mm3 (4.2-5.4); White Blood Count 6.9 K/mm3 (4.5-10.0)
[2025-05-06 12:00] LABS: Add Urine Microscopic? YES; Appearance Urine Cloudy (Clear); Glucose Urine UA Negative (Negative); Leukocyte Esterase Ur 3+ LEU/UL (Negative); Nitrate Urine Positive (Negative); Non Pathogenic Casts 0-2; Specific Grav Ur 1.023 (1.001-1.035)
--- NOTE | 2025-05-06 12:05 | ED.GENADULT ---
HPI - General Adult General Chief complaint: Urogenital-Female Stated complaint: flank pain, n/v, hematuria Time Seen by Provider: 05/06/25 11:30 History of Present Illness HPI narrative: 54-year-old female presents to the emergency department for evaluation for worsening flank pain along with nausea and vomiting. Patient began having flank pain Wednesday night into Wednesday morning but patient began developing the nausea and vomiting today. Patient does suspect this is a kidney stone. Patient does have prior history of ureteral calculi. Related Data Home Medications ?Medication ?Instructions ?Recorded ?Confirmed ?Last Taken ?Type levetiracetam 1,000 mg tablet 1,000 mg PO Q12H 11/21/20 12/23/24 12/22/24 09:00 History phentermine 15 mg capsule 15 mg PO DAILY 06/05/24 12/23/24 12/22/24 09:00 History apixaban 5 mg tablet (Eliquis) 5 mg PO .Twice Daily 12/23/24 12/23/24 Unknown History tizanidine 4 mg tablet 4 mg PO QID PRN muscle spasticity 12/23/24 12/23/24 Unknown History Allergies Allergy/AdvReac Type Severity Reaction Status Date / Time esomeprazole Allergy Unknown Hives Verified 05/06/25 11:28 iodine Allergy Unknown Swelling Verified 05/06/25 11:28 of Lip/Tongue/Throat ketorolac (From Toradol) Allergy Hives Verified 05/06/25 11:28 Contrast Media Allergy Unknown Swelling Uncoded 01/09/25 19:00 of Lip/Tongue/Throat Review of Systems Review of Systems: All systems reviewed & are unremarkable except as noted in HPI and below PMFSH Past Medical History Medical History Bulging disc L5-S1 Finger fracture DDD (degenerative disc disease) Arthritis Depression Anxiety Epilepsy Migraine Abnormal uterine bleeding UTI (urinary tract infection) Gallbladder disease Kidney stone Surgical History Surgical History History of ventral hernia repair History of back surgery Status post right foot surgery x2 H/O tubal ligation H/O: hysterectomy History of x4 History of urethral stent Rt H/O lithotripsy H/O resection of small bowel History of gastric bypass History of cholecystectomy Hx of tonsillectomy Family History Family History Mother Hypertension H/O heart artery stent Father Family history of diabetes mellitus in first degree relative Patient's father is Family history of chronic obstructive pulmonary disease, Onset Age: 71 Social History Social History Social History: Surrogate medical decision maker: Jonathan Golden, spouse. Code status: full code. Smoking status: Never smoker Second hand tobacco smoke exposure: No Alcohol intake: never Substance use: never Substance use type: does not use Do You Feel Safe in your Home?: Yes Lack of Transportation: No Lack of Food: Never True Current Housing: I Have Housing Concerned About Future Housing: No Difficulty Paying Gas/Electric Bills: No Difficulty Paying for Meds: No Currently Unemployed: No Education: Trade/Vocational Certificate Difficulty w/ Childcare or Family Care: No Additional living arrangements comments: The patient lives with her and 9-year-old son in [place]. Additional occupation/education comments: Disabled. Spiritual care concerns: No Exam Narrative: APPEARANCE: Uncomfortable appearing secondary to nausea HEAD: normocephalic, atraumatic. EYES: PERRLA/EOMI, conjunctivae clear. NOSE: Normal no drainage EARS:TMS clear with good light reflex. THROAT: Pharynx clear, no exudate. NECK: Supple. No adenopathy, no masses. RESPIRATORY: Airway patent, respirations nonlabored. Clear to auscultation bilaterally, no rales, rhonchi, wheezing. CARDIOVASCULAR: Regular rate and rhythm without murmurs rubs or gallops. ABDOMINAL: No flank tenderness or abdominal tenderness to palpation MUSCULOSKELETAL: Moves all extremities. Strength/ROM intact, No edema, No calf tenderness. NEURO: Alert. Cranial nerves II through XII intact. Good gait. Good coordination SKIN: Warm, dry. Normal Color Course Vital Signs Vital signs: Vital Signs Temperature 97.6 F 05/06/25 11:24 Pulse Rate 84 05/06/25 11:24 Respiratory Rate 16 05/06/25 11:24 Blood Pressure 149/84 H 05/06/25 11:24 Pulse Oximetry 100 05/06/25 11:24 Temperature 97.6 F 05/06/25 11:24 Pulse Rate 84 05/06/25 11:24 Respiratory Rate 16 05/06/25 11:24 Blood Pressure 149/84 H 05/06/25 11:24 Pulse Oximetry 100 05/06/25 11:24 Medical Decision Making MDM Narrative Medical decision making narrative: 54-year-old female presents to the emergency department for evaluation nausea vomiting and urinary pain. Patient reports symptoms have been ongoing for while and did worsen yesterday as far as pain and today regarding the nausea and vomiting. Patient is currently afebrile with no leukocytosis hemoglobin of 12.5. Patient has normal kidney function with no other acute abnormalities on his CMP patient's urine was significant for urinary tract infection is positive nitrates positive leukocyte esterase greater than 100 white blood cells and greater 100 red blood cells of +[address] was ordered to evaluate for obstructing ureteral calculi and the CT was negative. On re-evaluation patient does look and feel significantly improved. Patient was treated with a dose of IV Rocephin for the urinary tract infection along with a L of lactated Ringer's, IM Haldol and IV Dilaudid. Patient will be discharged home with Keflex and Phenergan suppository. Patient was educated on reasons to return to the emergency department. All questions concerns were addressed. Differential Diagnosis Differential Diagnosis: Ureteral calculi, pyelonephritis, UTI, cyclic nausea vomiting, sepsis Vital Signs Vital Signs: Vital Signs Temperature 97.6 F 05/06/25 11:24 Pulse Rate 84 05/06/25 11:24 Respiratory Rate 16 05/06/25 11:24 Blood Pressure 149/84 H 05/06/25 11:24 Pulse Oximetry 100 05/06/25 11:24 Temperature 97.6 F 05/06/25 11:24 Pulse Rate 84 05/06/25 11:24 Respiratory Rate 16 05/06/25 11:24 Blood Pressure 149/84 H 05/06/25 11:24 Pulse Oximetry 100 05/06/25 11:24 Lab Data Lab results reviewed: Yes I reviewed the patient's lab results. 05/06/25 11:47 05/06/25 11:47 Labs: Lab Results 05/06/25 Range/Units 11:47 WBC 6.9 (4.5-10.0) K/mm3 RBC 4.82 (4.2-5.4) M/mm3 Hgb 12.5 (12.0-15.0) g/dL Hct 40.8 (37.0-47.0) % MCV 84.6 (80-100) fl MCH 25.9 L (26-34) pg MCHC 30.6 L (32-36) g/dl RDW 14.9 H (11.5-14.5) % Plt Count 285 (150-375) k/mm3 MPV 10.4 (7.4-10.4) fl Immature Gran % (Auto) 0.3 (0-0.5) % Neut % (Auto) 51.3 (45.5-73.1) % Lymph % (Auto) 37.9 (18.3-44.2) % [place] % (Auto) 8.0 (2.6-8.5) % Eos % (Auto) 1.6 (0-4.4) % Baso % (Auto) 0.9 (0.2-1.2) % Lymph # (Auto) 2.60 (0.9-3.2) K/mm3 [place] # (Auto) 0.6 (0.1-0.6) K/mm3 Eos # (Auto) 0.1 (0-0.3) K/mm3 Baso # (Auto) 0.1 (0.0-0.1) K/mm3 Abs Immat Gran (auto) 0.02 (0.00-0.031) K/mm3 Absolute Neuts (auto) 3.5 (1.3-6.7) K/mm3 Absolute Nucleated RBC 0.000 (0.0-0.012) K/mm3 Nucleated RBC % 0.0 (0.0-0.2) % Sodium 139 (137-145) mmol/L Potassium 4.0 (3.4-5.0) mmol/L Chloride 111 H (98-107) mmol/L Carbon Dioxide 22 (22-30) mmol/L Anion Gap 6 (4-12) mmol/L BUN 15 (7-17) mg/dL Creatinine 0.79 (0.7-1.0) mg/dL Estim Creat Clear Calc 77 ml/min Estimated GFR > 60 (59 - ) Glucose 79 (65-110) mg/dL Calcium 8.8 (8.4-10.2) mg/dL Total Bilirubin 0.5 (0.2-1.3) mg/dL AST 25 (14-36) U/L ALT 33 (6-35) U/L Alkaline Phosphatase 120 (38-126) U/L Total Protein 7.1 (6.3-8.2) g/dL Albumin 4.0 (3.5-5.1) g/dL Urine Color Yellow (Yellow) Urine Appearance Cloudy H (Clear) Urine pH 5.5 (5.0-9.0) Ur Specific [place] 1.023 (1.001-1.035) Urine Protein Negative (Negative) mg/dL Urine Glucose (UA) Negative (Negative) mg/dL Urine Ketones Negative (Negative) mg/dL Ur Blood (Man) 3+ H (Negative) Urine Nitrate Positive H (Negative) Urine Bilirubin Negative (Negative) Urine Urobilinogen 0.2 (<2.0) mg/dL Leukocyte Esterase Rfl 3+ H (Negative) PATRICK/UL Urine RBC >100 H (0-2) /hpf Urine WBC >100 H (0-3) /hpf Ur Squamous Epith Cells Occasional (Few) /hpf Urine Bacteria 4+ H /hpf Urine Casts 0-2 Imaging Data Radiologist's impression: Impressions Abdomen/Pelvis CT 05/06/25 12:57 IMPRESSION: 1. No acute findings. 2. Small bilateral nephrolithiasis. No hydronephrosis. Discharge Plan Discharge Clinical Impression: Urinary tract infection Patient Disposition: Home Condition: Stable Instructions: Antibiotic Form, Urinary Tract Infection in Women (ED) Additional Instructions: Antibiotic as directed until completed. Zofran for nausea control, Phenergan as needed for additional nausea control. Have close follow-up with your primary care physician. If you have any worsening symptoms then please call or return to the emergency department. Patient Language: Norwegian Prescriptions: New promethazine 25 mg suppository 25 mg RECTAL BID PRN (Reason: nausea and vomiting) Qty: 12 0RF cephalexin 500 mg capsule 500 mg PO Q8H 7 Days Qty: 21 0RF No Action levetiracetam 1,000 mg tablet 1,000 mg PO Q12H phentermine 15 mg capsule 15 mg PO DAILY tizanidine 4 mg tablet 4 mg PO QID PRN (Reason: muscle spasticity) Eliquis 5 mg tablet 5 mg PO .Twice Daily amoxicillin-pot clavulanate [Augmentin] 500-125 mg Tablet 1 tablet PO Q12HR Qty: 7 0RF promethazine 12.5 mg tablet 6.25 mg PO TID PRN (Reason: nausea) Qty: 3 0RF Rx Instructions: 3 doses during day; last dose no later than 4 hr before bedtime promethazine 25 mg tablet 25 mg PO TID PRN (Reason: nausea and vomiting) Qty: 20 0RF amoxicillin-pot clavulanate 875-125 mg tablet 1 tablet PO Q12H Qty: 20 0RF tamsulosin 0.4 mg capsule 0.4 mg PO DAILY 7 Days Qty: 7 0RF hydrocodone-acetaminophen 5-325 mg tablet 1 tablet PO Q6H PRN (Reason: pain) Qty: 20 0RF Follow-up/Referrals: Madhu Tilley MD [Primary Care Provider, Hospitalist]
[2025-05-06] MEDS: HYDROmorphone HCL INJ (*CRX) 1 MG/ML SYR IV PUSH (12:08)
[2025-05-06] MEDS: HALOPERIDOL LACTATE 5 MG/ML VIAL IM (12:08)
[2025-05-06] MEDS: cefTRIAXone 1 GM in SODIUM CHLORIDE 0.9% IV 50 ML 100 ML IVPB (12:08)
[2025-05-06 12:14] LABS: Alanine Aminotransferase 33 U/L (6-35); Albumin Level 4.0 g/dL (3.5-5.1); Alkaline Phosphatase 120 U/L (38-126); Anion Gap 6 mmol/L (4-12); Aspartate Amino Transferase 25 U/L (14-36); Bilirubin,Total 0.5 mg/dL (0.2-1.3); Blood Urea Nitrogen 15 mg/dL (7-17); Calcium 8.8 mg/dL (8.4-10.2); Carbon Dioxide 22 mmol/L (22-30); Chloride 111 mmol/L (98-107); Estimated CRCL calculation 77 ml/min; Estimated Glomerular Filt Rate > 60; Glucose 79 mg/dL (65-110); Potassium 4.0 mmol/L (3.4-5.0); Sodium 139 mmol/L (137-145); Total Protein 7.1 g/dL (6.3-8.2)
== END 2025-05-06 13:56 | disposition home or self-care (01) ==
PROVIDERS: Emergency Provider Emergency Medicine; PCP Internal Medicine
DX: N39.0 Urinary tract infection, site not specified (principal); M19.90 Unspecified osteoarthritis, unspecified site; F32.A Depression, unspecified; F41.9 Anxiety disorder, unspecified; G40.909 Epilepsy, unspecified, not intractable, without status epilepticus; Z87.442 Personal history of urinary calculi; Z87.440 Personal history of urinary (tract) infections
CPT/HCPCS: 36415; 74176; 80053; 81001; 85025; 87077; 87086; 87186; 96365; 96375; 99284; J0696; J1171; J1200; J1630; J2765

== ENCOUNTER 2025-05-21 17:08 | Emergency (ER) | payer MEDICARE, MEDICAID, SELFPAY ==
--- NOTE | ~2025-05-21 | CT_ITS ---
CT ABDOMEN AND PELVIS WITHOUT CONTRAST Clinical History: right flank pain Comparison: 05/06/2025 Technique: Unenhanced axial images lung bases to symphysis pubis Coronal, sagittal reformats CT images acquired with automatic exposure control for dose reduction DLP: 458 mGy-cm Findings: Without intravenous contrast, sensitivity for detecting visceral parenchymal abnormalities decreased. Lung bases: Clear. Visualized heart and pericardium: Unremarkable. Liver: Unremarkable. Gallbladder: Removed. Spleen: Unremarkable. Pancreas: Unremarkable. Adrenal glands: Unremarkable. Kidneys: Right kidney- Hydronephrosis. Tiny stone. 3 mm stone distal ureter. Left kidney- No hydronephrosis. Tiny stone. Distal esophagus/stomach: Gastric bypass. Small bowel loops: Normal caliber and wall thickness. Colon: Right hemicolon suture line. Normal caliber and wall thickness. Normal appendix, midabdomen. Nodes: No enlarged nodes. Peritoneum: No ascites. No free intraperitoneal air. Urinary bladder: Unremarkable. Uterus: Removed. Adnexa: No masses. Bones: No acute bony abnormality. Soft tissues: Unremarkable. Unopacified abdominal aorta: No aneurysmal dilatation. IMPRESSION: 1. Hydronephrosis right kidney due to distal 3 mm ureteral stone. Reviewed, dictated and finalized at location R.
--- OUTSIDE RECORDS SUMMARY | 2025-05-21 17:10 | XMS_ITS | Patient Health Record ---
Author Organization [facility] Address [address] [place] [address] Care Team Providers Care Jacket Preparer Name Role Phone Madhu Tilley Primary Care [...] MG 1 tablet Orally twic e a day; Duration: 30 days Active Fluticasone Propionate 50 MCG/ACT 2 sprayS in each nostril Nasally Once a day Active levETIRAcetam 1000 MG TAKE 1 TABLET BY OUT TWICE DAILY; Duration: 90 days Active Phentermine HCl 15 MG 1 capsule Orally O nce a day; Duration: 30 days 03/08/2025 Active tiZANidine HCl 4 MG 1 tablet Orally four times a day; Duration: 30 days Active Topiramate 100 MG 1 tablet Orally Twic e a day Active Amoxicillin-Pot Clavulanate 875-125 MG 1 tablet Orally every 12 hrs; Duration: 7 days 03/05/2022 Active Promethazine-DM 6.25-15 MG/5ML 5 mL as needed Orally every 6 hrs; Duration: 10 days As needed cough 09/05/2024 Unknown [...] Problem Status W/U Status Risk Notes Problem Hypomagnesemia (382957910) Hypomagnesemia (E83.42) Active confirmed Problem Chronic pain (14847299) Other chronic pain (G89.29) Active confirmed Problem Sciatica (16371265) Lumbago with sciatica, unspecified side (M54.40) Active confirmed Problem Overactive bladder (310884367) Overactive bladder (N32.81) Active confirmed Problem Mood disorder (28746275) Mood disorder (F39) Active confirmed Problem Posttraumatic stress disorder (88535299) PTSD (post-traumatic stress disorder) (F43.10) Active confirmed Problem Vitamin D deficiency (05371445) Vitamin D deficiency (E55.9) Active confirmed Problem Seizure disorder (549687721) Seizure disorder (G40.909) Active confirmed Problem Iron deficiency anemia (32221505) Iron deficiency anemia (D50.9) Active confirmed Problem Chronic fatigue syndrome (66638051) Chronic fatigue (R53.82) Active confirmed Problem Plantar fasciitis (798629029) Plantar fasciitis (M72.2) Active confirmed Problem Moderate recurrent major depression (90392598) Moderate episode of recurrent major depressive disorder (F33.1) 2017 Active confirmed Problem Backache (484096947) Dorsalgia (M54.9) Active confirmed Problem Obesity (342743786) Obesity (BMI 30-39.9) (E66.9) Active confirmed Problem Panic disorder (093671715) Panic attacks (F41.0) Active confirmed Problem Essential hypertension (87701785) Essential hypertension (I10) 2018 Active confirmed Problem Migraine (00336560) Migraine wit hout status migrainosus, not intractable, unspecified migraine type (G43.909) Active confirmed SEEing NEUROLOGIST Problem Hyperparathyroidism (10444020) Hyperparathyroidi sm (E21.3) Active confirmed Problem Psychogenic skin symptoms (852813039) Excoriation (skin-picking) disorder (F42.4) Active confirmed Problem Malabsorption syndrome (28581665) Malabsorption due to intolerance, not elsewhere classified (K90.49) Active confirmed Problem Kidney stone (25104222) Kidney stones (N20.0) Active confirmed Problem Body mass index 30+ - obesity (677092475) Body mass index (BMI) of 30.0-30.9 in adult (Z68.30) Active confirmed Problem Obesity (841518871) Obesity, unspecified classification, unspecified obesity type, unspecified whether serious comorbidity present (E66.9) Active confirmed Problem History of bariatric surgical procedure (587690385) Gastric bypass status for obesity (Z98.84) 2022 Active confirmed Problem Gastroesophageal reflux disease (623173936) Gastroesophageal reflux disease, unspecified whether esophagitis present (K21.9) Active confirmed Problem Non-toxic multinodular goiter (16786455) Multinodular goiter (nontoxic) (E04.2) Active confirmed Problem Metabolic syndrome (996758064) Metabolic syndrome (E88.810) Active confirmed Vital Signs Heart Rate 91 /min 07/25/2024 Respiratory Rate 16 /min 07/25/2024 Oximetry 91 % 07/25/2024 Blood pressure diastolic 80 mm Hg 07/25/2024 Height 64 in 07/25/2024 Blood pressure systolic 128 mm Hg 07/25/2024 Weight 203.2 lbs 07/25/2024 BMI 34.88 kg/m2 07/25/2024 Encounters Encounter Location Date Provider Diagnosis [address] [place] [address] 05/30/2024 Madhu Tilley Plantar fasciitis M7 2.2 [...] Metabolic syndrome E88.810 and Dietary counseling Z71.[address] [place] [address] 06/28/2024 Madhu Tilley Nutritional counseli ng Z71.3 ; Plantar fasciitis M72.2 ; Dorsalgia of multiple sites in spine M54.9 ; Migraine without status migrainosus, not intractable, unspecified migraine type G43.909 ; Cervical myofascial pain syndrome M79.18 ; Right hip pain M25.551 ; Dorsalgia M54.9 ; Body mass index (BMI) of 30.0-30.9 in adult Z68.30 and Seizure disorder G40.[address] [place] [address] 07/25/2024 Madhu Tilley Nutritional counseli ng Z71.3 and DVT of right axillary vein, acute I82.A11 [address] [address] 08/21/2024 Madhu Tliley Body mass index (BMI ) of 30.0-30.9 in adult Z68.30 and DVT of right axillary vein, acute I82.A11 [address] [address] 08/10/2024 Madhu Tilley [address] [address] 09/05/2024 Madhu Tilley [address] [address] 09/26/2024 Madhu Tilley UTI (urinary tract infection) N39.[address] [address] 03/07/2025 Madhu Tilley Assessments Encounter Date Diagnosis (ICD Code) Assessment Notes Treatment Notes Treatment Clinical Notes Section Notes 09/26/2024 UTI (urinary tract infection) (ICD-10 - N39.0) 05/30/2024 Plantar fasciitis (ICD-10 - M72.2) DISCUSSED AND DEMONSTRATED HEEL STRETCHES, HEEL CUPS, NO BAREFOOT WALKING, GOOD FOOTWEAR 05/30/2024 Body mass index (BMI ) of 30.0-30.9 in adult (ICD-10 - Z68.30) DISCUSSED MEDITERRANEAN DIET AND SENT INFO 08/21/2024 Body mass index (BMI ) of 30.0-30.9 in adult (ICD-10 - Z68.30) 08/21/2024 DVT of right axillar y vein, acute (ICD-10 - I82.A11) 07/25/2024 Nutritional counseli ng (ICD-10 - Z71.3) 07/25/2024 DVT of right axillar y vein, acute (ICD-10 - I82.A11) 06/28/2024 Plantar fasciitis (ICD-10 - M72.2) 06/28/2024 Nutritional counseli ng (ICD-10 - Z71.3) [...] (Keppra), S 03/01/2019 Levetiracetam (Keppra), S 05/01/2019 Insurance Providers Payer Name Payer Address Payer Phone Subscriber Number Group Number Insured Name Patient Relationship to Insured Coverage Start Date Coverage End Date [employer] Medicare [address] [address] [place] [address] [id number] Misti Bai Self - patient is the insured 3 3 [employer] Medicare [address] [address] [place] [phone] [id number] Misti Bai Self - patient is the insured 4 MEDICAID [address] [place] [address] [id number] Misti Bai Self - patient is the [...] surgery 2010 Bowel resection 2017 exploratory lap 2018 removal of benign small bowel tumor 03/04 21 spinal stenosis surgery 10/2021 Gastric bypass reverse 02/15/2023 Hospitalization History Reason Date(Month/Year) kidney infection 10/2023 Stomach issue 06/2022 Stomach issues 03/2022 hernia repair 05/2018
--- OUTSIDE RECORDS SUMMARY | 2025-05-21 17:10 | XMS_ITS | Clinical Summary ---
Author Organization [facility] Address [address] [place] [address] Phone Care Team Providers Care Diamond Powder Technician Name Role Phone Madhu Tilley MD Primary Care Provider [phone] Allergies Active Allergy Reactions Criticality Noted Date [...] Comments Blood Pressure 177/89 08/31/2023 5:00 PM FEED RESEARCH TECHNICIAN Pulse 79 08/31/2023 5:00 PM FEED RESEARCH TECHNICIAN Temperature 36.9 C (98.4 F) 08/31/2023 3:04 PM FEED RESEARCH TECHNICIAN Respiratory Rate 17 08/31/2023 3:30 PM FEED RESEARCH TECHNICIAN Oxygen Saturation 99% 08/31/2023 5:00 PM FEED RESEARCH TECHNICIAN Inhaled Oxygen Concentration - - Weight 90.7 kg (200 lb) 08/31/2023 3:15 PM FEED RESEARCH TECHNICIAN Height 162.6 cm (5' 4) 08/31/2023 3:04 PM FEED RESEARCH TECHNICIAN Body Mass Index 34.33 08/31/2023 3:04 PM FEED RESEARCH TECHNICIAN Plan of Treatment Health Maintenance Due Date [...] 2020 Zoster Immunization (1 of 2) 2020 Medicare Initial AWV [id number] 08/16/2024 Influenza Immunization (#1) 04/16/202509/2017, 07/17/2018 SARS-COV-2 Immunization [...] age to complete this topic Insurance MEDICAID [place] MEDICARE C [employer] Care Teams Diamond Powder Technician Relationship Specialty Start Date End Date Madhu Tilley MD [address] [place] [address] PCP - General Internal Medicine 08/31/23
--- OUTSIDE RECORDS SUMMARY | 2025-05-21 17:11 | XMS_ITS | Clinical Summary ---
Author Organization [facility] Address [address] [place] [address] Care Team Providers Care Production Lead Name Role Phone Unavailable Primary Care Provider [...] Recently Relevant to Health Maintenance Insurance PPO [facility] [employer] [address] COMMERCIAL
--- OUTSIDE RECORDS SUMMARY | 2025-05-21 17:11 | XMS_ITS | Patient Health Record ---
Author Organization [facility] Address [facility] [address] Care Team Providers Care Amusement Ride Operator Name Role Phone Anum Lisa Primary [...] Oral ([facility]) Active Social History Social History [facility] Social Info Question Answer Notes Household/Enviromental [...] Risk Notes Problem Mild recurrent major depression (98937523) Major depressive disorder, recurrent episode, mild (296.31) 1 Active confirmed ([facility]) Added By: Angelina Garrett Problem Anxiety state (295732399) Anxiety state, unspecified (300.00) 1 Active confirmed ([facility]) Added By: Angelina Garrett Plan Of Treatment No Information Medical (General) History Surgical History Surgery Date(Month/Year) gastric bypass 2010 hernia repair 2011 lithotripsy October 2012 Hysterectomy
--- OUTSIDE RECORDS SUMMARY | 2025-05-21 17:11 | XMS_ITS | Clinical Summary ---
Author Organization [facility] Address [address] [place] [address] Care Team Providers Care Credit Analyst Name Role Phone Kit Jonas MD Unavailable [phone] Madhu Tilley MD Primary Care Provider [phone] Allergies Active Allergy Reactions Criticality Noted Date [...] often do you attend chur ch or christian services? Never 02/04/2023 Do you belong to any clubs o r organizations such as scientology groups, unions, fraternal or athletic groups, or [...] on file Legal Sex Female 2:16 AM BEARING MACHINE OPERATOR Gender Identity Not on file Sexual Orientation Not on file Obstetrics History Last Filed Vital Signs Vital Sign Reading Time Taken Comments Blood Pressure 149/87 09/18/2023 7:03 PM BEARING MACHINE OPERATOR Pulse 80 09/18/2023 7:03 PM BEARING MACHINE OPERATOR Temperature 37 C (98.6 F) 09/18/2023 7:03 PM BEARING MACHINE OPERATOR Respiratory Rate 16 09/18/2023 7:03 PM BEARING MACHINE OPERATOR Oxygen Saturation 100% 09/18/2023 7:03 PM BEARING MACHINE OPERATOR Inhaled Oxygen Concentration - - Weight 88.5 kg (195 lb) 09/18/2023 2:48 PM BEARING MACHINE OPERATOR Height 162.6 cm (5' 4) 06/06/2023 12:45 [...] CDT Narrative 05/10/2017 5:10 PM CDT Acc#: [id number] JOSE RAUL [id number] - Diag Mamm BI [...] M.D. TECHNOLOGIST: SHANE DUMONT TECHNOLOGIST MEDICAL IMAGING MUMPS DEVELOPER: PSC TRANSCRIBE DATE/TIME: May 11 2017 4:05P RADIOLOGIST: MARJORIE FRIAS M.D. READ ON: May 10 2017 3:22P ORDERING DR: NADIA BROWN M.D. THIS DOCUMENT HAS BEEN ELECTRONICALLY SIGNED BY: MARJORIE FRIAS M.D. ON: May 11 2017 4:05P Attending: DENG JACOBSON Requesting: NADIA BROWN Requesting Attending Attending ID: [id number] Requesting ID: [id number] Report To 1 ID: [id number] Report To 1 Name: DENG JACOBSON Report To 1 FAX: [phone] Report To 2 ID: Report To 2 Name: , Report To 2 FAX: -- NextGen Order #: Procedure Note Miscellaneous, Not In File / Provider, MD Keren - 05/11/2017 Acc#: [id number] JOSE RAUL 0015 - Diag Mamm BI [...] Frias M.D. TECHNOLOGIST: RICARDO COLVINOLOGIST MEDICAL IMAGING MUMPS DEVELOPER: Knock Knock TRANSCRIBE DATE/TIME: May 11 2017 4:05P RADIOLOGIST: MARJORIE FRIAS M.D. READ ON: May 10 2017 3:22P ORDERING DR: NADIA BROWN M.D. THIS DOCUMENT HAS BEEN ELECTRONICALLY SIGNED BY: MARJORIE FRIAS M.D. ON: May 11 2017 4:05P Attending: DENG JACOBSON Requesting: NADIA BROWN Requesting Attending Attending ID: [id number] Requesting ID: [id number] Report To 1 ID: [id number] Report To 1 Name: DENG JACOBSON Report To 1 FAX: [phone] Report To 2 ID: Report To 2 [...] 02/21/2019 Insurance [facility] MEDICARE [facility] CLAIMS OFFICE [facility] MEDICARE [facility] MEDICARE Address: [address] [address] [place] [address] IDPA [facility] MEDICARE ADVANTAGE [facility] MEDICARE Address: [address] [address] [place] [address] IDPA [facility] MEDICARE ADVANTAGE [facility] MEDICARE Address: [address] [address] [place] [address] Advance Directives For more information, please contact: [phone] * Full Code (Latest Code Status on File) Date Activated Date Inactivated Comments 02/03/2023 7:52 PM 02/05/2023 5:54 PM * Full Code Date Activated Date Inactivated Comments 04/19/2018 11:35 AM 04/20/2018 8:58 PM * Full Code Date Activated Date Inactivated Comments 02/03/2018 12:56 AM 02/04/2018 7:24 PM Care Teams Credit Analyst Relationship Specialty Start Date End Date Madhu Tilley MD PCP - General 07/04/20 Kit Jonas MD Surgeon General Surgery 02/04/18
--- OUTSIDE RECORDS SUMMARY | 2025-05-21 17:11 | XMS_ITS | Clinical Summary ---
Author Organization [facility] Address [address] [place] [address] Care Team Providers Care Claim Review Medical Director Name Role Phone Madhu Tilley MD Primary Care Provider [phone] Source Comments [facility],non-owned Affiliates and Associated Physician Practices is amultiple site organization consisting of ambulatory clinics and hospital sitesin [place], [place], [place] and [place]. This disclosure is being madepursuant to the Care Everywhere program and may not contain all information available regarding this patient. Last updated 18.[facility] Allergies Active Allergy Reactions Criticality Noted Date [...] vitamin D, ergocalciferol , (Drisdol) 1.25 MG (87775 UT) capsule Take 1 (one) capsule by [...] fluticasone propionate (Flonase) 50 MCG/ACT nasal spray Artie 2 (two) sprays into each nostril once [...] and heating? Not hard at all 03/30/2023 [facility] - [...] slept in a fpc (including now)? No 03/30/2023 Comments No Sex and Gender Information Value Date Recorded Sex Assigned at Female Legal Sex Female 10:00 AM THERAPIST SPEECH Gender Identity Female Sexual Orientation Straight Last [...] this topic Medical Devices Implanted Type Area National Recruiter Device Identifier Shelf Expiration Date Model / Serial / Lot Graft Tissue Nushield 3x2cm [facility] - [id number] Implanted:Qty: 1 on 10/22/2021 by Ramone Galloway MD at [facility] N/A: Back Organogenesis 05/05/2025 NO-1230 / [id number] / Procedures Procedure Name Priority Date/Time Associated Diagnosis Comments BASIC METABOLIC PANEL (CALCIUM TOTAL) Routine 04/03/2023 3:08 AM CDT HEPATITIS SCREEN ACUTE Routine 02/21/2021 3:19 AM CDT HIV-1 HIV-2 ANTIGEN/ANTIBODY STAT 10/13/2018 11:33 AM THERAPIST SPEECH LIPID PROFILE Routine 09/22/2013 2:15 PM THERAPIST SPEECH Major Depressive Disorder, Recurrent Episode, Mild from [...] - 10.4 mg/dL 04/03/2023 4:27 AM CDT [facility] Anion Gap 8 6 - 16 mmol/L 04/03/2023 4:27 AM CDT [facility] BUN 16 7 - 26 mg/dL 04/03/2023 4:27 AM CDT [facility] Creatinine 0.69 0.57 - 1.11 mg/dL 04/03/2023 4:27 AM CDT [facility] eGFR by CKD-EPI >90 >=90 mL/min/1.7 3 m2 04/03/2023 4:27 AM CDT [facility] Blood BLOOD SPECIMEN / Unknown Venipuncture / Unknown 04/03/2023 3:08 AM CDT 04/03/2023 4:09 AM CDT us Jacqueline Jerome ELIGIBILITY SUPERVISOR-BUSINESS INTEGRATION MANAGER LAB - CHEMISTRY O RDERABLES Final Result Performing Organization Address [facility] de Phone Number [facility] [address] [place] [address] * HEPATITIS SCREEN ACUTE (02/21/2021 3:19 AM CDT) Pathologist [facility] HAV Antibody IgM Non Reactive Non Reactive 02/21/2021 4:52 AM CDT [facility] HBsAg Non Reactive Non Reactive 02/21/2021 4:52 AM CDT [facility] HBc Antibody IgM Non Reactive Non Reactive 02/21/2021 4:52 AM CDT [facility] HCV Antibody Screen Non Reactive Non Reactive 02/21/2021 4:52 AM CDT [facility] Blood BLOOD SPECIMEN / Unknown Venipuncture / Unknown 02/21/2021 3:19 AM CDT 02/21/2021 4:01 AM CDT Narrative [facility] - 02/21/2021 4:52 AM CDT Non Reactive - Antibodies to Hepatitis C virus (HCV) were not detected, result does not exclude early acute HCV infection. us Rylie Villalobos MD LAB - CHEMISTRY ORDERABLES Final Result Performing Organization Address [facility] de Phone Number [facility] [address] [place] [address] * HIV-1 HIV-2 ANTIGEN/ANTIBODY (10/13/2018 11:33 AM THERAPIST SPEECH) [facility] HIV Antigen/Antibod y 1 & 2 Non-reacti ve Non-react fredrick 10/13/2018 12:39 PM THERAPIST SPEECH [facility] Comment: Neither HIV-1 p24 Antigen nor HIV-1/HIV-2 Antibodies are detected. Blood BLOOD SPECIMEN / Unknown Venipuncture / Unknown 10/13/2018 11:33 AM THERAPIST SPEECH 10/13/2018 11:45 AM THERAPIST SPEECH us Scott Chun MD LAB - HEMATOLOGY ORDERABLES F inal Result [facility] [address] [place] [address], [facility] [phone] * LIPID PROFILE (09/22/2013 2:15 PM THERAPIST SPEECH) [facility] Cholesterol 149 <200 mg/dL 09/22/2013 3:18 PM THERAPIST SPEECH [facility] Triglycerides 79 <150 mg/dL 09/22/2013 3:18 PM THERAPIST SPEECH [facility] HDL Cholesterol 66 >40 mg/dL 4 3:18 PM [facility] Chol HDL Ratio 2.3 1.0 - 6.0 09/22/2013 3:18 PM THERAPIST SPEECH [facility] LDL Calculated 67 65 - 130 mg/dL 09/22/2013 3:18 PM THERAPIST SPEECH [facility] VLDL Calculated 16 10 - 40 mg/dL 09/22/2013 3:18 PM THERAPIST SPEECH [facility] Blood BLOOD SPECIMEN / Unknown Venipuncture / Unknown 09/22/2013 2:15 PM THERAPIST SPEECH 09/22/2013 2:29 PM THERAPIST SPEECH Narrative [facility] - 09/22/2013 3:18 PM THERAPIST SPEECH Lipid Profile Comment: CHOLESTEROL LEVEL..................CLINICAL INTERPRETATION LESS [...] [facility] LAB - CHEMISTRY ORDERABLES Final Result [facility] [address] from Last 3 Months or Most Recently Relevant to Health Maintenance Additional Health Concerns Infection Onset Date Last Indicated ESBL Hx Comment:urine 11/08/2018 03/16/2023 [place] [address] [facility] MANAGED MEDICARE ADV MEDICAID - [place] * Guarantor: PRASHANT FARLEY Account Type Relation to Patient Date of Phone Billing Address Personal/Family 1970 [address] [place] [address] Advance Directives * Full Code (Latest Code [...] 12:36 PM 09/17/2022 2:57 PM Care Teams Claim Review Medical Director Relationship Specialty Start Date End Date Madhu Tilley MD [address] [place] [address] PCP - General Internal Medicine 03/17/23
--- OUTSIDE RECORDS SUMMARY | 2025-05-21 17:11 | XMS_ITS | Clinical Summary ---
Author Organization [facility] Address [address] [place] [address] Phone Care Team Providers Care Inventory Analyst Name Role Phone Madhu Tilley MD Primary Care Provider [phone] Allergies Active Allergy Reactions Criticality Noted Date [...] Comments Blood Pressure 113/80 09/16/2019 4:37 PM PARAMEDIC Pulse 79 09/16/2019 4:37 PM PARAMEDIC Temperature 36.4 C (97.6 F) 09/16/2019 1:11 PM PARAMEDIC Respiratory Rate 18 09/16/2019 4:37 PM PARAMEDIC Oxygen Saturation 95% 09/16/2019 4:37 PM PARAMEDIC Inhaled Oxygen Concentration - - Weight 79.4 kg (175 lb) 09/16/2019 1:11 PM PARAMEDIC Height 162.6 cm (5' 4) 09/16/2019 1:11 PM PARAMEDIC Body Mass Index 30.04 09/16/2019 1:11 PM PARAMEDIC Plan of Treatment Health Maintenance Due Date [...] Advance Directives For more information, please contact: [phone] * Full Code (Latest Code Status on File) Date Activated Date Inactivated Comments 07/16/2018 9:55 PM 07/19/2018 2:03 PM Care Teams Inventory Analyst Relationship Specialty Start Date End Date Madhu Tilley MD [address] [facility] [address] [place] [address] PCP - General Internal Medicine 08/27/19
--- OUTSIDE RECORDS SUMMARY | 2025-05-21 17:11 | XMS_ITS | Encounter Summary ---
Author Organization [facility] Address [address] [place] [address] Care Team Providers Care Sales And Merchandising Representative Name Role Phone Unavailable Primary Care Provider Unavailabl e Prior Encounters Date Type Department Care Team Description 03/31/2022 Travel 03/31/2022 11:15 AM CDT Office Visit [facility] [address] [place] [address] Emperatriz Zuñiga DDS Dental caries unspecified (Primary Dx) 03/26/2022 Travel 03/26/2022 1:00 PM CDT Office Visit [facility] [address] [place] [address] Rustam Taylor DMD Last Filed [...] * DEEP SEDATION (03/31/2022 5:20 PM CDT) Emperatrzi Corado DDS - 03/31/2022 5:20 PM CDT [...] Analgesia: Fentanyl Intra-procedure monitoring: Blood pressure monitoring, secured entrance monitor, continuous capnometry, continuous pulse oximetry, frequent [...] is stable for discharge or admission: yes Knot Bumper's Name:: Jonathan Emperatriz Zuñiga DDS ANESTHESIA ORDERABLES Final Re sult Visit Diagnoses Diagnosis Start Date Dental caries unspecified 03/31/2022 Insurance [employer] PPO [employer] PPO [address] COMMERCIAL
--- OUTSIDE RECORDS SUMMARY | 2025-05-21 17:11 | XMS_ITS | Clinical Summary ---
Author Organization [facility] Address [address] [place] [address] Care Team Providers Care Valet Name Role Phone Unavailable Primary Care Provider [...]
[2025-05-21 17:50] VITALS: BP 160/100; PULSE 88; RESP 20; TEMP 36.8; O2SAT 100
--- NOTE | 2025-05-21 17:51 | ED_ITS ---
HPI - Female Genitourinary General Chief complaint: Urogenital-Female <Silverio Henson APRN - Last Filed: 05/21/25 17:53> Stated complaint: I have a kidney stone, I'm 100% positive <Silverio Henson APRN - Last Filed: 05/21/25 17:53> Time Seen by Provider: 05/21/25 21:57 <Silverio Henson APRN - Last Filed: 05/21/25 17:53> Focused HPI: 55-year-old female with known history of kidney stones sudden onset right flank pain. States pain is consistent prior kidney stone presentation. Pain is accompanied with nausea. Denies decreased urination. GENERAL: Well-appearing, well-nourished, and in acute distress. HEAD: Normocephalic, atraumatic. CHEST: Clear to auscultation. No respiratory distress. HEART: Regular rate and rhythm. NEURO: Alert and oriented x3. Patient screened in triage and initial orders placed. Additional care and disposition to be based upon diagnostic testing and treatment. <Silverio Henson APRN - Last Filed: 05/21/25 17:53> History of Present Illness HPI Narrative: Patient 55-year-old female who presents emergency department with chief complaint of right flank pain. Patient reports pain started this morning reports that feels similar to whenever she has had kidney stones in the past. Patient denies fever reports he has had some vomiting reports still has some nausea with <Octavio Oconnor MD - Last Filed: 05/22/25 01:02> Related Data Home medications: Home Medications ?Medication ?Instructions ?Recorded ?Confirmed ?Last Taken ?Type levetiracetam 1,000 mg tablet 1,000 mg PO Q12H 1 12/23/24 12/22/24 09:00 History phentermine 15 mg capsule 15 mg PO DAILY 06/05/2412/1412/22/24 09:00 History apixaban 5 mg tablet (Eliquis) 5 mg PO .Twice Daily 12/23/24 Unknown History tizanidine 4 mg tablet 4 mg PO QID PRN muscle spast icity 12/23/24 12/23/24 Unknown History <Silverio Henson APRN - Last Filed: 05/21/25 17:53> Allergies/Adverse reactions: Allergies Allergy/AdvReac Type Severity Reaction Status Date / Time esomeprazole Allergy Unknown Hives Verified 05/06/25 11:28 iodine Allergy Unknown Swelling Verified 05/06/25 11:28 of Lip/Tongue/Throat ketorolac (From Toradol) Allergy Hives Verified 05/06/25 11:28 Contrast Media Allergy Unknown Swelling Uncoded 01/09/25 19:00 of Lip/Tongue/Throat <Silverio Henson APRN - Last Filed: 05/21/25 17:53> Review of Systems 2 Review of Systems: A 10 system review of systems was completed on the patient and is negative except for what is stated in the HPI. Nursing and ancillary documentation was reviewed. <Octavio Oconnor MD - Last Filed: 05/22/25 01:02> [facility] Past Medical History Medical History: Medical History Bulging disc L5-S1 Finger fracture DDD (degenerative disc disease) Arthritis Depression Anxiety Epilepsy Migraine Abnormal uterine bleeding UTI (urinary tract infection) Gallbladder disease Kidney stone <Silverio Henson APRN - Last Filed: 05/21/25 17:53> Surgical History Surgical History: Surgical History History of ventral hernia repair History of back surgery Status post right foot surgery x2 H/O tubal ligation H/O: hysterectomy History of x4 History of urethral stent Rt H/O lithotripsy H/O resection of small bowel History of gastric bypass History of cholecystectomy Hx of tonsillectomy <Silverio Henson APRN - Last Filed: 05/21/25 17:53> Family History Family History: Family History Mother Hypertension H/O heart artery stent Father Family history of diabetes mellitus in first degree relative Patient's father is Family history of chronic obstructive pulmonary disease, Onset Age: 71 <Silverio Henson APRN - Last Filed: 05/21/25 17:53> Social History Social History: Social History Social History: Surrogate medical decision maker: Jonathan Golden, spouse. Code status: full code. Smoking status: Never smoker Second hand tobacco smoke exposure: No Alcohol intake: never Substance use: never Substance use type: does not use Do You Feel Safe in your Home?: Yes Lack of Transportation: No Lack of Food: Never True Current Housing: I Have Housing Concerned About Future Housing: No Difficulty Paying Gas/Electric Bills: No Difficulty Paying for Meds: No Currently Unemployed: No Education: Trade/Vocational Certificate Difficulty w/ Childcare or Family Care: No Additional living arrangements comments: The patient lives with her and 9-year-old son in [place]. Additional occupation/education comments: Disabled. Spiritual care concerns: No <Silverio Henson APRN - Last Filed: 05/21/25 17:53> Exam 2 Narrative: GENERAL: Well-appearing, well-nourished, and in no acute distress. HEAD: Normocephalic, atraumatic. EYES: PERRLA and EOMI. ENT: Nares clear, no rhinorrhea or epistaxis. Mucous membranes moist. NECK: Supple. CHEST: Clear to auscultation. No respiratory distress. HEART: Regular rate and rhythm. No murmur heard. Normal peripheral pulses. ABDOMEN: Soft, nontender, nondistended, normal active bowel sounds. EXTREMITIES: Normal range of motion. No edema. SKIN: Warm, dry, no rash. NEURO: No focal deficits. Alert and oriented x3. PSYCH: Normal mood and affect. <Octavio Oconnor MD - Last Filed: 05/22/25 01:02> Course Vital Signs Vital signs: Vital Signs Temperature 36.8 C 05/21/25 17:50 Pulse Rate 88 05/21/25 17:50 Respiratory Rate 20 05/21/25 17:50 Blood Pressure 160/100 H 05/21/25 17:50 Pulse Oximetry 100 05/21/25 17:50 Oxygen Delivery Room Air 05/21/25 17:50 Temperature 36.8 C 05/21/25 17:50 Pulse Rate 92 05/22/25 00:27 Respiratory Rate 20 05/22/25 00:27 Blood Pressure 160/100 H 10/06/25 17:50 Pulse Oximetry 96 05/22/25 00:27 Oxygen Delivery Room Air 05/21/25 17:50 <Silverio Henson APRN - Last Filed: 05/21/25 17:53> Vital Signs Temperature 36.8 C 05/21/25 17:50 Pulse Rate 88 05/21/25 17:50 Respiratory Rate 20 05/21/25 17:50 Blood Pressure 160/100 H 05/21/25 17:50 Pulse Oximetry 100 05/21/25 17:50 Oxygen Delivery Room Air 05/21/25 17:50 Temperature 36.8 C 05/21/25 17:50 Pulse Rate 92 05/22/25 00:27 Respiratory Rate 20 05/22/25 00:27 Blood Pressure 160/100 H 05/21/25 17:50 Pulse Oximetry 96 05/22/25 00:27 Oxygen Delivery Room Air 05/21/25 17:50 <Octavio Oconnor MD - Last Filed: 05/22/25 01:02> MDM - Female Genitourinary MDM Narrative Medical decision making narrative: Differential diagnosis includes ureterolithiasis, pyelonephritis, Patient's pain was controlled emergency department laboratory studies showed a normal CBC with a white count 13.1 patient is currently afebrile urinalysis showed 51-100 white blood cells in the urine CT scan showed Hydronephrosis right kidney due to distal 3 mm ureteral stone. Patient's pain was controlled emergency department case was discussed with Urology who recommended starting the patient on oral antibiotics and making sure that urine culture was sent patient should follow-up with urology and was given strict return precautions <Octavio Oconnor MD - Last Filed: 05/22/25 01:02> Lab Data Result diagrams: 05/21/25 22:13 05/21/25 22:13 <Silverio Henson APRN - Last Filed: 05/21/25 17:53> Labs: Lab Results 05/21/25 05/21/25 05/21/25 Range/Units 22:13 22:14 22:17 WBC 13.1 H (4.5-10.0) K/mm3 RBC 5.30 (4.2-5.4) M/mm3 Hgb 13.6 (12.0-15.0) g/dL Hct 44.4 (37.0-47.0) % MCV 83.8 (80-100) fl MCH 25.7 L (26-34) pg MCHC 30.6 L (32-36) g/dl RDW 14.8 H (11.5-14.5) % Plt Count 251 (150-375) k/mm3 MPV 10.1 (7.4-10.4) fl Immature Gran % (Auto) 0.4 (0-0.5) % Neut % (Auto) 76.1 H (45.5-73.1) % Lymph % (Auto) 16.7 L (18.3-44.2) % [place] % (Auto) 5.9 (2.6-8.5) % Eos % (Auto) 0.6 (0-4.4) % Baso % (Auto) 0.3 (0.2-1.2) % Lymph # (Auto) 2.19 (0.9-3.2) K/mm3 [place] # (Auto) 0.8 H (0.1-0.6) K/mm3 Eos # (Auto) 0.1 (0-0.3) K/mm3 Baso # (Auto) 0.0 (0.0-0.1) K/mm3 Abs Immat Gran (auto) 0.05 H (0.00-0.031) K/mm3 Absolute Neuts (auto) 10.0 H (1.3-6.7) K/mm3 Absolute Nucleated RBC 0.000 (0.0-0.012) K/mm3 Nucleated RBC % 0.0 (0.0-0.2) % Sodium 142 (137-145) mmol/L Potassium 4.4 (3.4-5.0) mmol/L Chloride 111 H (98-107) mmol/L Carbon Dioxide 20 L (22-30) mmol/L Anion Gap 11 (4-12) mmol/L BUN 18 H (7-17) mg/dL Creatinine 0.72 (0.7-1.0) mg/dL Estim Creat Clear Calc 83 ml/min Estimated GFR > 60 (59 - ) Glucose 89 (65-110) mg/dL Calcium 9.5 (8.4-10.2) mg/dL Total Bilirubin 0.6 (0.2-1.3) mg/dL AST 34 (14-36) U/L ALT 31 (6-35) U/L Alkaline Phosphatase 130 H (38-126) U/L Total Protein 8.0 (6.3-8.2) g/dL Albumin 4.5 (3.5-5.1) g/dL Urine Color Yellow (Yellow) Urine Appearance Cloudy H (Clear) Urine pH 6.0 (5.0-9.0) Ur Specific [place] 1.014 (1.001-1.035) Urine Protein Negative (Negative) mg/dL Urine Glucose (UA) Negative (Negative) mg/dL Urine Ketones Negative (Negative) mg/dL Ur Blood (Man) 1+ H (Negative) Urine Nitrate Positive H (Negative) Urine Bilirubin Negative (Negative) Urine Urobilinogen 0.2 (<2.0) mg/dL Leukocyte Esterase Rfl 3+ H (Negative) PATRICK/UL Urine RBC 11-20 H (0-2) /hpf Urine WBC 51-100 H (0-3) /hpf Ur Squamous Epith Cells Occasional (Few) /hpf Urine Bacteria 4+ H /hpf Urine Casts 0-2 POC Urine HCG, Qual Negative (Negative) <Silverio Henson, HIDE CURER - Last Filed: 05/21/25 17:53> Lab Results 05/21/25 05/21/25 05/21/25 Range/Units 22:13 22:14 22:17 WBC 13.1 H (4.5-10.0) K/mm3 RBC 5.30 (4.2-5.4) M/mm3 Hgb 13.6 (12.0-15.0) g/dL Hct 44.4 (37.0-47.0) % MCV 83.8 (80-100) fl MCH 25.7 L (26-34) pg MCHC 30.6 L (32-36) g/dl RDW 14.8 H (11.5-14.5) % Plt Count 251 (150-375) k/mm3 MPV 10.1 (7.4-10.4) fl Immature Gran % (Auto) 0.4 (0-0.5) % Neut % (Auto) 76.1 H (45.5-73.1) % Lymph % (Auto) 16.7 L (18.3-44.2) % [place] % (Auto) 5.9 (2.6-8.5) % Eos % (Auto) 0.6 (0-4.4) % Baso % (Auto) 0.3 (0.2-1.2) % Lymph # (Auto) 2.19 (0.9-3.2) K/mm3 [place] # (Auto) 0.8 H (0.1-0.6) K/mm3 Eos # (Auto) 0.1 (0-0.3) K/mm3 Baso # (Auto) 0.0 (0.0-0.1) K/mm3 Abs Immat Gran (auto) 0.05 H (0.00-0.031) K/mm3 Absolute Neuts (auto) 10.0 H (1.3-6.7) K/mm3 Absolute Nucleated RBC 0.000 (0.0-0.012) K/mm3 Nucleated RBC % 0.0 (0.0-0.2) % Sodium 142 (137-145) mmol/L Potassium 4.4 (3.4-5.0) mmol/L Chloride 111 H (98-107) mmol/L Carbon Dioxide 20 L (22-30) mmol/L Anion Gap 11 (4-12) mmol/L BUN 18 H (7-17) mg/dL Creatinine 0.72 (0.7-1.0) mg/dL Estim Creat Clear Calc 83 ml/min Estimated GFR > 60 (59 - ) Glucose 89 (65-110) mg/dL Calcium 9.5 (8.4-10.2) mg/dL Total Bilirubin 0.6 (0.2-1.3) mg/dL AST 34 (14-36) U/L ALT 31 (6-35) U/L Alkaline Phosphatase 130 H (38-126) U/L Total Protein 8.0 (6.3-8.2) g/dL Albumin 4.5 (3.5-5.1) g/dL Urine Color Yellow (Yellow) Urine Appearance Cloudy H (Clear) Urine pH 6.0 (5.0-9.0) Ur Specific [place] 1.014 (1.001-1.035) Urine Protein Negative (Negative) mg/dL Urine Glucose (UA) Negative (Negative) mg/dL Urine Ketones Negative (Negative) mg/dL Ur Blood (Man) 1+ H (Negative) Urine Nitrate Positive H (Negative) Urine Bilirubin Negative (Negative) Urine Urobilinogen 0.2 (<2.0) mg/dL Leukocyte Esterase Rfl 3+ H (Negative) PATRICK/UL Urine RBC 11-20 H (0-2) /hpf Urine WBC 51-100 H (0-3) /hpf Ur Squamous Epith Cells Occasional (Few) /hpf Urine Bacteria 4+ H /hpf Urine Casts 0-2 POC Urine HCG, Qual Negative (Negative) <Octavio Oconnor MD - Last Filed: 05/22/25 01:02> Discharge Plan Discharge Clinical Impression: Ureterolithiasis, UTI (urinary tract infection) <Silverio Henson APRN - Last Filed: 05/21/25 17:53> Patient Disposition: Home <Silverio Henson APRN - Last Filed: 05/21/25 17:53> Condition: Stable <Silverio Henson APRN - Last Filed: 05/21/25 17:53> Instructions: Antibiotic Form, Kidney Stones (ED), Urinary Tract Infection in Women (ED) <Silverio Henson APRN - Last Filed: 05/21/25 17:53> Additional Instructions: Please make sure to strain your urine. If you develop high fevers body aches chills please return to the emergency department immediately as you have a urinary tract infection with your kidney stone. Please follow-up with urology <Silverio Henson APRN - Last Filed: 05/21/25 17:53> Patient Language: Korean <Silverio Henson APRN - Last Filed: 05/21/25 17:53> Prescriptions: New tamsulosin [Flomax] 0.4 mg capsule 0.4 mg PO DAILY Qty: 10 0RF hydrocodone-acetaminophen 5-325 mg tablet 1 tablet PO Q6H PRN (Reason: pain) 3 Days Qty: 12 0RF ondansetron 4 mg tablet,disintegrating 4 mg PO Q8H PRN (Reason: nausea and vomiting) Qty: 10 0RF ciprofloxacin HCl 500 mg tablet 500 mg PO Q12H 10 Days Qty: 20 0RF No Action levetiracetam 1,000 mg tablet 1,000 mg PO Q12H phentermine 15 mg capsule 15 mg PO DAILY tizanidine 4 mg tablet 4 mg PO QID PRN (Reason: muscle spasticity) Eliquis 5 mg tablet 5 mg PO .Twice Daily amoxicillin-pot clavulanate [Augmentin] 500-125 mg Tablet 1 tablet PO Q12HR Qty: 7 0RF promethazine 12.5 mg tablet 6.25 mg PO TID PRN (Reason: nausea) Qty: 3 0RF Rx Instructions: 3 doses during day; last dose no later than 4 hr before bedtime promethazine 25 mg tablet 25 mg PO TID PRN (Reason: nausea and vomiting) Qty: 20 0RF amoxicillin-pot clavulanate 875-125 mg tablet 1 tablet PO Q12H Qty: 20 0RF tamsulosin 0.4 mg capsule 0.4 mg PO DAILY 7 Days Qty: 7 0RF hydrocodone-acetaminophen 5-325 mg tablet 1 tablet PO Q6H PRN (Reason: pain) Qty: 20 0RF promethazine 25 mg suppository 25 mg RECTAL BID PRN (Reason: nausea and vomiting) Qty: 12 0RF cephalexin 500 mg capsule 500 mg PO Q8H 7 Days Qty: 21 0RF <Silverio Henson APRN - Last Filed: 05/21/25 17:53> Follow-up/Referrals: Matthew Arriaga MD [Physician, Urology] Madhu Tilley MD [Primary Care Provider, Hospitalist] <Silverio Henson APRN - Last Filed: 05/21/25 17:53> Time of Disposition: 01:01 <Silverio Henson APRN - Last Filed: 05/21/25 17:53> 01:01 <Octavio Oconnor MD - Last Filed: 05/22/25 01:02>
--- NOTE | 2025-05-21 18:18 | PC.NURSE ---
Pt approaching triage desk co pain, EDP Silverio Henson APRN made aware
[2025-05-21] MEDS: ACETAMINOPHEN 500 MG TABLET 1000 MG PO (21:19)
--- NOTE | 2025-05-21 21:19 | PC.NURSE ---
pt up to video journalist multiple times. Pt continues to be verbally aggressive and increasing in volume in which she is speaking to both intake/director internal audit. Triage process explained multiple times and pt continues to yell I am in the er and no one is helping me. People who come in after me are going ahead of me and getting discharged. I am sitting here and not being treated. RN advised that the [facility] provider did see the patient, ct was ordered and completed and that i could give the tylenol that was ordered but could not give anything stronger in the waiting area as we could not place pt on a monitor. Pt continues to yell at this rn. Tylenol given.
--- NOTE | 2025-05-21 21:32 | PC.NURSE ---
ED Security in the waiting room to address pt. Pt continues to be verbally aggressive with the intake staff and any person who is pulling pt to any department. Pt continues to yell great fucking triage job you all are doing. You all are lying, i did not get seen by an er provider.
[2025-05-21] MEDS: MORPHINE SULFATE (*CRX) 4 MG/ML INJ IV PUSH ×2 (22:18→23:36)
[2025-05-21] MEDS: SODIUM CHLORIDE 0.9% IV 1,000 ML 999 ML IV CONT (22:18)
[2025-05-21] MEDS: ONDANSETRON INJ 4 MG/2 ML VIAL IV PUSH ×2 (22:18→23:36)
[2025-05-21 22:19] LABS: BEDSIDEPREGUCG Negative (Negative)
[2025-05-21 22:20] LABS: Hematocrit 44.4 % (37.0-47.0); Hemoglobin 13.6 g/dL (12.0-15.0); Immature Granulocyte Percent A 0.4 % (0-0.5); Lymphocytes Absolute Auto 2.19 K/mm3 (0.9-3.2); Mean Corpuscular HGB Conc 30.6 g/dl (32-36); Mean Corpuscular Hemoglobin 25.7 pg (26-34); Mean Corpuscular Volume 83.8 fl (80-100); Nucleated Red Blood Cells Absolute Auto 0.000 K/mm3 (0.0-0.012); Nucleated Red Blood Cells Perc 0.0 % (0.0-0.2); Platelet Count Result 251 k/mm3 (150-375); Red Blood Count 5.30 M/mm3 (4.2-5.4); White Blood Count 13.1 K/mm3 (4.5-10.0)
[2025-05-21 22:24] LABS: Add Urine Microscopic? YES; Appearance Urine Cloudy (Clear); Glucose Urine UA Negative (Negative); Leukocyte Esterase Ur 3+ LEU/UL (Negative); Nitrate Urine Positive (Negative); Non Pathogenic Casts 0-2; Specific Grav Ur 1.014 (1.001-1.035)
--- OUTSIDE RECORDS SUMMARY | 2025-05-21 22:32 | XMS_ITS | Clinical Summary ---
Author Organization [facility] Address [address] [place] [address] Phone Care Team Providers Care Pillowcase Cutter Name Role Phone Madhu Tilley MD Primary Care Provider [phone] Allergies Active Allergy Reactions Criticality Noted Date [...] Comments Blood Pressure 177/89 08/31/2023 5:00 PM PAYROLL ADMINISTRATIVE ASSISTANT Pulse 79 08/31/2023 5:00 PM PAYROLL ADMINISTRATIVE ASSISTANT Temperature 36.9 C (98.4 F) 08/31/2023 3:04 PM PAYROLL ADMINISTRATIVE ASSISTANT Respiratory Rate 17 08/31/2023 3:30 PM PAYROLL ADMINISTRATIVE ASSISTANT Oxygen Saturation 99% 08/31/2023 5:00 PM PAYROLL ADMINISTRATIVE ASSISTANT Inhaled Oxygen Concentration - - Weight 90.7 kg (200 lb) 08/31/2023 3:15 PM PAYROLL ADMINISTRATIVE ASSISTANT Height 162.6 cm (5' 4) 08/31/2023 3:04 PM PAYROLL ADMINISTRATIVE ASSISTANT Body Mass Index 34.33 08/31/2023 3:04 PM PAYROLL ADMINISTRATIVE ASSISTANT Plan of Treatment Health Maintenance Due [...] age to complete this topic Insurance [place]ID [place] C [employer] Care Teams Pillowcase Cutter Relationship Specialty Start Date End Date Madhu Tilley MD [address] [place] [address] PCP - General Internal Medicine 08/31/23
--- OUTSIDE RECORDS SUMMARY | 2025-05-21 22:32 | XMS_ITS | Clinical Summary ---
Author Organization [facility] Address [address] [place] [address] Phone Care Team Providers Care Photographer Name Role Phone Madhu Tilley MD Primary Care Provider [phone] Allergies Active Allergy Reactions Criticality Noted Date [...] Comments Blood Pressure 113/80 09/16/2019 4:37 PM CREATIVE WRITING ENGLISH PROFESSOR Pulse 79 09/16/2019 4:37 PM CREATIVE WRITING ENGLISH PROFESSOR Temperature 36.4 C (97.6 F) 09/16/2019 1:11 PM CREATIVE WRITING ENGLISH PROFESSOR Respiratory Rate 18 09/16/2019 4:37 PM CREATIVE WRITING ENGLISH PROFESSOR Oxygen Saturation 95% 09/16/2019 4:37 PM CREATIVE WRITING ENGLISH PROFESSOR Inhaled Oxygen Concentration - - Weight 79.4 kg (175 lb) 09/16/2019 1:11 PM CREATIVE WRITING ENGLISH PROFESSOR Height 162.6 cm (5' 4) 09/16/2019 1:11 PM CREATIVE WRITING ENGLISH PROFESSOR Body Mass Index 30.04 09/16/2019 1:11 PM CREATIVE WRITING ENGLISH PROFESSOR Plan of Treatment Health Maintenance Due Date [...] Advance Directives For more information, please contact: [phone] * Full Code (Latest Code Status on File) Date Activated Date Inactivated Comments 07/16/2018 9:55 PM 07/19/2018 2:03 PM Care Teams Photographer Relationship Specialty Start Date End Date Madhu Tilley MD [address] [facility] [address] [place] [address] PCP - General Internal Medicine 08/27/19
--- OUTSIDE RECORDS SUMMARY | 2025-05-21 22:32 | XMS_ITS | Clinical Summary ---
Author Organization [facility] Address [address] [place] [id number] Care Team Providers Care Metrology Specialist Name Role Phone Unavailable Primary Care [...]
--- OUTSIDE RECORDS SUMMARY | 2025-05-21 22:33 | XMS_ITS | Clinical Summary ---
Author Organization [facility] Address [address] [place] [address] Care Team Providers Care Guzzler Builder Name Role Phone Kit Jonas MD Unavailable [phone] Madhu Tilley MD Primary Care Provider [phone] Allergies Active Allergy Reactions Criticality Noted Date [...] often do you attend chur ch or evangelical services? Never 02/04/2023 Do you belong to any clubs o r organizations such as protestant groups, unions, fraternal or athletic groups, or [...] on file Legal Sex Female 2:16 AM CUSTOMER SUPPORT SPECIALIST Gender Identity Not on file Sexual Orientation Not on file Obstetrics History Last Filed Vital Signs Vital Sign Reading Time Taken Comments Blood Pressure 149/87 09/18/2023 7:03 PM CUSTOMER SUPPORT SPECIALIST Pulse 80 09/18/2023 7:03 PM CUSTOMER SUPPORT SPECIALIST Temperature 37 C (98.6 F) 09/18/2023 7:03 PM CUSTOMER SUPPORT SPECIALIST Respiratory Rate 16 09/18/2023 7:03 PM CUSTOMER SUPPORT SPECIALIST Oxygen Saturation 100% 09/18/2023 7:03 PM CUSTOMER SUPPORT SPECIALIST Inhaled Oxygen Concentration - - Weight 88.5 kg (195 lb) 09/18/2023 2:48 PM CUSTOMER SUPPORT SPECIALIST Height 162.6 cm (5' 4) 06/06/2023 12:45 [...] CDT Narrative 05/10/2017 5:10 PM CDT Acc#: [id number] JOSE RAUL [id number] - Diag Mamm BI [...] M.D. TECHNOLOGIST: SHANE DUMONT TECHNOLOGIST MEDICAL IMAGING DIESEL ENGINE MECHANIC: [employer] TRANSCRIBE DATE/TIME: May 11 2017 4:05P RADIOLOGIST: MARJORIE FRIAS M.D. READ ON: May 10 2017 3:22P ORDERING DR: NADIA BROWN M.D. THIS DOCUMENT HAS BEEN ELECTRONICALLY SIGNED BY: MARJORIE FRIAS M.D. ON: May 11 2017 4:05P Attending: DENG JACOBSON Requesting: NADIA BROWN Requesting Attending Attending ID: [id number] Requesting ID: [id number] Report To 1 ID: [id number] Report To 1 Name: DENG JACOBSON Report To 1 FAX: [phone] Report To 2 ID: Report To 2 Name: , Report To 2 FAX: -- NextGen Order #: Procedure Note Miscellaneous, Not In File / Provider, MD Keren - 05/11/2017 Acc#: [id number] JOSE RAUL 0015 - Diag Mamm BI [...] Frias M.D. TECHNOLOGIST: RICARDO COLVINOLOGIST MEDICAL IMAGING DIESEL ENGINE MECHANIC: [employer] TRANSCRIBE DATE/TIME: May 11 2017 4:05P RADIOLOGIST: MARJORIE FRIAS M.D. READ ON: May 10 2017 3:22P ORDERING DR: NADIA BROWN M.D. THIS DOCUMENT HAS BEEN ELECTRONICALLY SIGNED BY: MARJORIE FRIAS M.D. ON: May 11 2017 4:05P Attending: DENG JACOBSON Requesting: NADIA BROWN Requesting Attending Attending ID: [id number] Requesting ID: [id number] Report To 1 ID: [id number] Report To 1 Name: DENG JACOBSON Report To 1 FAX: [phone] Report To 2 ID: Report To 2 Name: , Report To 2 FAX: -- NextGen Order #: Nadia Brown MD IMG MAMMO PROCEDURES E dited Result - Final from Last 3 Months or Most Recently Relevant to Health Maintenance Additional Health Concerns Infection Onset Date Last Indicated MDR gram neg/ESBL Comment:ESBL E.coli urine 11/07/17, 11/15/17, 04/16/18, 02/21/19 11/07/2017 02/21/2019 Insurance [facility] MEDIC[facility] CLAIMS OFFICE [facility] MEDICARE [employer] [facility] MEDIC[facility] Address: [address] [address] [place] [address] IDPA [facility] MEDICARE ADVANTAGE [facility]IC[facility] Address: [address] [address] [place] [address] IDPA [facility] MEDICARE ADV[facility]AGE [facility] Address: [address] [address] [place] [address] Advance Directives For more information, please contact: [phone] * Full Code (Latest Code Status on File) Date Activated Date Inactivated Comments 02/03/2023 7:52 PM 02/05/2023 5:54 PM * Full Code Date Activated Date Inactivated Comments 04/19/2018 11:35 AM 04/20/2018 8:58 PM * Full Code Date Activated Date Inactivated Comments 02/03/2018 12:56 AM 02/04/2018 7:24 PM Care Teams Guzzler Builder Relationship Specialty Start Date End Date Madhu Tilley MD PCP - General 07/04/20 Kit Jonas MD Surgeon General Surgery 02/04/18
--- OUTSIDE RECORDS SUMMARY | 2025-05-21 22:33 | XMS_ITS | Clinical Summary ---
Author Organization [facility] Address [address] [place] [address] Care Team Providers Care Monitoring Analyst Name Role Phone Unavailable Primary Care Provider [...] Recently Relevant to Health Maintenance Insurance PPO [facility] [address] COMMERCIAL
--- OUTSIDE RECORDS SUMMARY | 2025-05-21 22:33 | XMS_ITS | Clinical Summary ---
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 This disclosure is being madepursuant to the Care Everywhere program and may not contain all information available regarding this patient. Last updated 18.[facility] Allergies Active Allergy Reactions Criticality Noted Date [...] vitamin D, ergocalciferol , (Drisdol) 1.25 MG (54860 UT) capsule Take 1 (one) capsule by [...] fluticasone propionate (Flonase) 50 MCG/ACT nasal spray Strawn 2 (two) sprays into each nostril once [...] and heating? Not hard at all 03/30/2023 [facility] - Occupational [...] at Female Legal Sex Female 10:00 AM GARBAGE MAN Gender Identity Female Sexual Orientation Straight Last [...] this topic Medical Devices Implanted Type Area Load Dropper Device Identifier Shelf Expiration Date Model / Serial / Lot Graft Tissue Nushield 3x2cm [facility] - [id number] Implanted:Qty: 1 on 10/22/2021 by Ramone Galloway MD at [facility] N/A: Back Organogenesis 05/05/2025 [id number] / [id number] / Procedures Procedure Name Priority Date/Time Associated Diagnosis Comments BASIC METABOLIC PANEL (CALCIUM TOTAL) Routine 04/03/2023 3:08 AM CDT HEPATITIS SCREEN ACUTE Routine 02/21/2021 3:19 AM CDT HIV-1 HIV-2 ANTIGEN/ANTIBODY STAT 10/13/2018 11:33 AM GARBAGE MAN LIPID PROFILE Routine 09/22/2013 2:15 PM GARBAGE MAN Major Depressive Disorder, Recurrent Episode, Mild from [...] - 10.4 mg/dL 04/03/2023 4:27 AM CDT [facility] Anion Gap 8 6 - 16 mmol/L 04/03/2023 4:27 AM CDT [facility] BUN 16 7 - 26 mg/dL 04/03/2023 4:27 AM CDT [facility] Creatinine 0.69 0.57 - 1.11 mg/dL 04/03/2023 4:27 AM CDT [facility] eGFR by CKD-EPI >90 >=90 mL/min/1.7 3 m2 04/03/2023 4:27 AM CDT [facility] Blood BLOOD SPECIMEN / Unknown Venipuncture / Unknown 04/03/2023 3:08 AM CDT 04/03/2023 4:09 AM CDT us Jacqueline Jerome HEALTH SOCIAL WORK PROFESSOR-CHIEF RESOURCE OFFICER LAB - CHEMISTRY O RDERABLES Final Result Performing Organization Address [facility] de Phone Number [facility] [address] [place] [address] * HEPATITIS SCREEN ACUTE (02/21/2021 3:19 AM CDT) Pathologist [facility] HAV Antibody IgM Non Reactive Non Reactive 02/21/2021 4:52 AM CDT [facility] HBsAg Non Reactive Non Reactive 02/21/2021 4:52 AM CDT [facility] HBc Antibody IgM Non Reactive Non Reactive 02/21/2021 4:52 AM CDT [facility] HCV Antibody Screen Non Reactive Non Reactive 02/21/2021 4:52 AM CDT [facility] Blood BLOOD SPECIMEN / Unknown Venipuncture / Unknown 02/21/2021 3:19 AM CDT 02/21/2021 4:01 AM CDT Narrative [facility] - 02/21/2021 4:52 AM CDT Non Reactive - Antibodies to Hepatitis C virus (HCV) were not detected, result does not exclude early acute HCV infection. us Rylie Villalobos MD LAB - CHEMISTRY ORDERABLES Final Result Performing Organization Address [facility] de Phone Number [facility] [address] [place] [address] * HIV-1 HIV-2 ANTIGEN/ANTIBODY (10/13/2018 11:33 AM GARBAGE MAN) [facility] HIV Antigen/Antibod y 1 & 2 Non-reacti ve Non-react fredrick 10/13/2018 12:39 PM GARBAGE MAN [facility] Comment: Neither HIV-1 p24 Antigen nor HIV-1/HIV-2 Antibodies are detected. Blood BLOOD SPECIMEN / Unknown Venipuncture / Unknown 10/13/2018 11:33 AM GARBAGE MAN 10/13/2018 11:45 AM GARBAGE MAN us Scott Chun MD LAB - HEMATOLOGY ORDERABLES F inal Result [facility] [address] [place] [address], [facility] [phone] * LIPID PROFILE (09/22/2013 2:15 PM GARBAGE MAN) [facility] Cholesterol 149 <200 mg/dL 09/22/2013 3:18 PM GARBAGE MAN [facility] Triglycerides 79 <150 mg/dL 09/22/2013 3:18 PM GARBAGE MAN [facility] HDL Cholesterol 66 >40 mg/dL 4 3:18 PM [facility] Chol HDL Ratio 2.3 1.0 - 6.0 09/22/2013 3:18 PM GARBAGE MAN [facility] LDL Calculated 67 65 - 130 mg/dL 09/22/2013 3:18 PM GARBAGE MAN [facility] VLDL Calculated 16 10 - 40 mg/dL 09/22/2013 3:18 PM GARBAGE MAN [facility] Blood BLOOD SPECIMEN / Unknown Venipuncture / Unknown 09/22/2013 2:15 PM GARBAGE MAN 09/22/2013 2:29 PM GARBAGE MAN Narrative [facility] - 09/22/2013 3:18 PM GARBAGE MAN Lipid Profile Comment: CHOLESTEROL LEVEL..................CLINICAL INTERPRETATION LESS [...] [facility] LAB - CHEMISTRY ORDERABLES Final Result [facility] [address] from Last 3 Months or Most Recently Relevant to Health Maintenance Additional Health Concerns Infection Onset Date Last Indicated ESBL Hx Comment:urine 11/08/2018 03/16/2023 [place] [address] [facility] MANAGED MEDICARE ADV MEDICAID - [id number] * Guarantor: PRASHANT FARLEY Account Type Relation to Patient Date of Phone Billing Address Personal/Family 1970 [address] [place] [address] Advance Directives * Full Code (Latest Code [...] 12:36 PM 09/17/2022 2:57 PM Care Teams Boat Engine Mechanic Relationship Specialty Start Date End Date Madhu Tilley MD [address] [place] [address] PCP - General Internal Medicine 03/17/23
--- OUTSIDE RECORDS SUMMARY | 2025-05-21 22:33 | XMS_ITS | Encounter Summary ---
Author Organization [facility] Health Address [address] [place] [address] Care Team Providers Care Local Superintendent Name Role Phone Unavailable Primary Care Provider Unavailabl e Prior Encounters Date Type Department Care Team Description 03/31/2022 Travel 03/31/2022 11:15 AM CDT Office Visit [facility] [address] [place] [address] Emperatriz Zuñiga DDS Dental caries unspecified (Primary Dx) 03/26/2022 Travel 03/26/2022 1:00 PM CDT Office Visit [facility] [address] [place] [address] Rustam Taylor DMD Last Filed [...] Analgesia: Fentanyl Intra-procedure monitoring: Blood pressure monitoring, case monitor, continuous capnometry, continuous pulse oximetry, frequent [...] is stable for discharge or admission: yes Labor Economics Professor's Name:: Jonathan Emperatriz Zuñiga DDS ANESTHESIA ORDERABLES Final Re sult Visit Diagnoses Diagnosis Start Date Dental caries unspecified 03/31/2022 Insurance [employer] [place] [employer] [address] [employer]ER[employer]
[2025-05-21 22:34] LABS: Alanine Aminotransferase 31 U/L (6-35); Albumin Level 4.5 g/dL (3.5-5.1); Alkaline Phosphatase 130 U/L (38-126); Anion Gap 11 mmol/L (4-12); Aspartate Amino Transferase 34 U/L (14-36); Bilirubin,Total 0.6 mg/dL (0.2-1.3); Blood Urea Nitrogen 18 mg/dL (7-17); Calcium 9.5 mg/dL (8.4-10.2); Carbon Dioxide 20 mmol/L (22-30); Chloride 111 mmol/L (98-107); Estimated CRCL calculation 83 ml/min; Estimated Glomerular Filt Rate > 60; Glucose 89 mg/dL (65-110); Potassium 4.4 mmol/L (3.4-5.0); Sodium 142 mmol/L (137-145); Total Protein 8.0 g/dL (6.3-8.2)
[2025-05-22] MEDS: HYDROmorphone HCL INJ (*CRX) 1 MG/ML SYR IV PUSH (00:16)
[2025-05-22 00:27] VITALS: BP 138/87; PULSE 92; RESP 20; O2SAT 96
[2025-05-22] MEDS: TAMSULOSIN HCL 0.4 MG CAPSULE PO (01:21)
[2025-05-22] MEDS: SULFAMETHOXAZOLE/TRIMETHOPRIM 800/160 MG DS TABLET 1 TAB PO (01:21)
== END 2025-05-22 01:27 | disposition home or self-care (01) ==
PROVIDERS: Nurse Practitioner Family; Emergency Provider Emergency Medicine; PCP Internal Medicine
DX: N13.2 Hydronephrosis with renal and ureteral calculous obstruction (principal); N39.0 Urinary tract infection, site not specified; G40.909 Epilepsy, unspecified, not intractable, without status epilepticus; M19.90 Unspecified osteoarthritis, unspecified site; Z98.84 Bariatric surgery status; Z87.442 Personal history of urinary calculi; Z90.710 Acquired absence of both cervix and uterus; Z90.49 Acquired absence of other specified parts of digestive tract; Z79.899 Other long term (current) drug therapy; Z79.01 Long term (current) use of anticoagulants
CPT/HCPCS: 36415; 74176; 80053; 81001; 81025; 85025; 87077; 87086; 87186; 96361; 96374; 96375; 96376; 99284; A9270; J1171; J1200; J2270; J2405; J7030

== ENCOUNTER 2025-05-23 20:40 | Inpatient (IN) | payer MEDICARE, MEDICAID, SELFPAY ==
[2025-05-23] VITALS (7 sets, daily range): BP systolic 152–181; BP diastolic 86–101; PULSE 107; RESP 20; TEMP 36.8; O2SAT 98–100
--- NOTE | ~2025-05-23 | XR_ITS ---
EXAMINATION: XR abdomen/kub 1V DATE: 05/26/2025 10:05 INDICATION: Nephrolithiasis with right flank pain TECHNIQUE: A supine view of the abdomen on 2 radiographs was obtained. COMPARISON: CT dated 05/24/2025 FINDINGS: Cholecystectomy clips in right upper quadrant. Multiple metallic coils consistent with prior ventral hernia repair projecting over the central and right lower abdomen. Several phleboliths in the pelvis. 2 mm calcific density projecting over the lower pole the right kidney. Lung bases are clear with miah vation right hemidiaphragm. Heart size is normal. Severe lower lumbar spondylosis. IMPRESSION: 1. 2 mm stone at the lower pole of the right kidney. 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
--- NOTE | ~2025-05-23 | XR_ITS ---
EXAMINATION: XR retrograde pyelogram RT DATE: 05/24/2025 17:11 INDICATION: Cystoscopy for right stone extraction TECHNIQUE: 8 fluoroscopic images of the abdomen and pelvis were obtained during procedure performed by Dr. Melo. Radiologist was not present for the imaging or procedure. The amount of fluoroscopy time used during this procedure was 0.2 minutes. Total DAP was 0.182 mGym^2. COMPARISON: None. FINDINGS: Images demonstrate a catheter and wire advanced along the right ureter beyond the cephalad margin of the field of imaging. Postoperative change of prior ventral hernia repair and cholecystectomy clips in right upper quadrant. IMPRESSION: 1. Fluoroscopy utilized during urologic procedure at the right ureter. See procedure note for further detail. 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 IMPRESSION: 1. Fluoroscopy utilized during urologic procedure at the right ureter. See proc edure note for further detail.
--- NOTE | ~2025-05-23 | CT_ITS ---
CT ABDOMEN AND PELVIS WITHOUT CONTRAST Clinical History: Hydroneph R kidney; distal 3 mm uret stone on 05/21 Comparison: CT 05/21/2025 Technique: Unenhanced axial images lung bases to symphysis pubis Coronal, sagittal reformats CT images acquired with automatic exposure control for dose reduction DLP: 518 mGy-cm Findings: Without intravenous contrast, sensitivity for detecting visceral parenchymal abnormalities decreased. Lung bases: Clear. Visualized heart and pericardium: Unremarkable. Liver: Unremarkable. Gallbladder: Unremarkable. Spleen: Unremarkable. Pancreas: Unremarkable. Adrenal glands: Unremarkable. Kidneys: Right kidney- minimal hydronephrosis. No renal stones. Left kidney- No hydronephrosis. Tiny stone. Small cortical cyst Distal esophagus/stomach: Gastric bypass. Small bowel loops: Normal caliber and wall thickness. Colon: Right hemicolon suture line. Normal appendix midabdomen Nodes: No enlarged nodes. Peritoneum: No ascites. No free intraperitoneal air. Urinary bladder: 3 mm stone right UVJ. Uterus: Removed. Adnexa: No masses. Bones: No acute bony abnormality. Soft tissues: Unremarkable. Unopacified abdominal aorta: No aneurysmal dilatation. IMPRESSION: 1. 3 mm stone right UVJ. 2. Improving hydronephrosis right kidney. 3. Additional findings as above. Reviewed, dictated and finalized at location R.
[2025-05-23 23:50] LABS: Add Urine Microscopic? YES; Appearance Urine Clear (Clear); Glucose Urine UA Negative (Negative); Leukocyte Esterase Ur Trace LEU/UL (Negative); Nitrate Urine Negative (Negative); Non Pathogenic Casts 0-2; Specific Grav Ur 1.017 (1.001-1.035)
[2025-05-23] MEDS: HYDROcodone/acetaminophen (*CRX) 5-325 MG TABLET 1 TAB PO (23:55)
[2025-05-24] VITALS (9 sets, daily range): BP systolic 113–140; BP diastolic 70–94; PULSE 68–96; RESP 16–20; TEMP 36.1–36.8; O2SAT 97–100; BMI 34.7
--- NOTE | 2025-05-24 00:36 | ED_ITS ---
HPI - Abdominal Pain General Chief Complaint: Abdominal Pain Stated Complaint: right sided flank pain Time Seen by Provider: 05/23/25 23:39 Source: patient Mode of arrival: ambulatory Limitations: no limitations History of Present Illness HPI narrative: Patient presents with report of right flank pain due to a kidney stone that was recently diagnosed in the emergency department. She has previously seen urologists Dr Salinas (no longer here), [place], and one at an outside facility due to history of stones. She has been using a Flomax and hydrocodone she was discharged with. She reports that she has been having fevers at home with a temperature of 103.0? yesterday although today has been low-grade between 9900. She notes that she believes that the acetaminophen component of her Barn[place] was helping with the fever. She has been feeling chilled. She feels like her urine output has changed and has become intermittent. She has urinary urgency and still feels like she needs to void after urinating. She also reports a bit of right lower quadrant abdominal pain. While in the emergency department ciprofloxacin had initially been ordered but she had stated that she cannot take this due to her history of epilepsy for which she is on Keppra and this order was changed to Bactrim but her discharge Rx was for cipro so she has not been taking any antibiotics. Patient is initially somewhat frustrated and in pain but does apologize for being agitated and rude initially and attributes this both pain as well as that her sister this past week. Related Data Home Medications ?Medication ?Instructions ?Recorded ?Confirmed ?Last Taken ?Type levetiracetam 1,000 mg tablet 1,000 mg PO Q12H 1 05/24/25 05/23/25 06:01 History 1,000 mg tizanidine 4 mg tablet 4 mg PO QID PRN muscle spast icity 12/23/24 05/24/25 05/23/25 08:07 History 4 mg Allergies Allergy/AdvReac Type Severity Reaction Status Date / Time esomeprazole Allergy Unknown Hives Verified 05/06/25 11:28 iodine Allergy Unknown Swelling Verified 05/06/25 11:28 of Lip/Tongue/Throat ketorolac (From Toradol) Allergy Hives Verified 05/06/25 11:28 Contrast Media Allergy Unknown Swelling Uncoded 01/09/25 19:00 of Lip/Tongue/Throat PMFSH Past Medical History Medical History Bulging disc L5-S1 Finger fracture DDD (degenerative disc disease) Arthritis Depression Anxiety Epilepsy Migraine Abnormal uterine bleeding UTI (urinary tract infection) Gallbladder disease Kidney stone Surgical History Surgical History History of ventral hernia repair History of back surgery Status post right foot surgery x2 H/O tubal ligation H/O: hysterectomy History of x4 History of urethral stent Rt H/O lithotripsy H/O resection of small bowel History of gastric bypass History of cholecystectomy Hx of tonsillectomy Family History Family History Mother Hypertension H/O heart artery stent Father Family history of diabetes mellitus in first degree relative Patient's father is Family history of chronic obstructive pulmonary disease, Onset Age: 71 Sibling , 2024 Acute myocardial infarction Social History Social History (Updated 05/24/25 @ 02:59 by Sera Dietrich MD) Social History: Surrogate medical decision maker: Jonathan Golden, spouse. Code status: full code. Smoking status: Never smoker Second hand tobacco smoke exposure: No Alcohol intake: never Substance use: never Substance use type: does not use Do You Feel Safe in your Home?: Yes Lack of Transportation: No Lack of Food: Never True Current Housing: I Have Housing Concerned About Future Housing: No Difficulty Paying Gas/Electric Bills: No Difficulty Paying for Meds: No Currently Unemployed: No Education: Associate Degree Difficulty w/ Childcare or Family Care: No Additional living arrangements comments: The patient lives with her and 9-year-old son in [place]. Frequently babysits her grandchild who is 18mos Additional occupation/education comments: Disabled. Spiritual care concerns: No Exam 2 Narrative: GENERAL: Well-appearing, well-nourished, and in no acute distress. HEAD: Normocephalic, atraumatic. EYES: Non injected, non icteric ENT: Nares clear, no rhinorrhea or epistaxis. Gross auditory acuity intact. NECK: Supple. No meningismus. CHEST: Speaking in full sentences. No respiratory distress. HEART: Regular rate and rhythm. . ABDOMEN: Soft, nondistended. Mild RLQ TTP but No rigidity or guarding. Not peritoneal EXTREMITIES: Normal range of motion. No lower extremity edema. BACK: No CVA Tenderness SKIN: Warm, dry, no rash. NEURO: No focal deficits. Alert and oriented. Answering questions. Following commands. Normal speech without aphasia or dysarthria. PSYCH: Normal mood and affect. Course Vital Signs Vital signs: Vital Signs Temperature 98.3 F 05/23/25 20:41 Pulse Rate 107 H 05/23/25 20:41 Respiratory Rate 20 05/23/25 20:41 Blood Pressure 152/86 H 05/23/25 20:41 Pulse Oximetry 99 05/23/25 20:41 Oxygen Delivery Room Air 05/23/25 20:41 Temperature 97.8 F 05/24/25 21:29 Pulse Rate 83 05/24/25 21:29 Respiratory Rate 16 05/24/25 21:29 Blood Pressure 139/82 05/24/25 21:29 Pulse Oximetry 98 05/24/25 21:29 Oxygen Delivery Room Air 05/24/25 18:12 Oxygen Flow Rate 8 05/24/25 17:25 MDM - Abdominal Pain MDM Narrative Medical decision making narrative: Patient presents with report of persistent right flank pain. Recently diagnosed with kidney stone in the ED. Using Barn[place] and FLomax at home. Still having pain and reports fevers, max 103.0 at home and 99-100 today. Also having chills. Believes the acetaminophen component within the Barn[place] has been helping her fever. Patient reports that initially along the emergency department a few days an order for ciprofloxacin had been placed however she had noted that she cannot take this medication due to the Keppra she is on for epilepsy and this order was changed to Bactrim however she was discharged prescription for Cipro so she has not been taking antibiotics. History of kidney stones requiring intervention. In the emergency department she is afebrile with vital signs notable for tachycardia and hypertension. urinalysis with marked hematuria. patient had initially been given a Barneston tablet for pain. it was noted that patient became frustrated as she stated she could take Barn[place] at home. IM Dilaudid ordered as patient has not yet gotten an IV nor labs. Urine culture from 05/21/2025 remains in process, no growth reported yet nor sensitivities. She has transaminitis. Historically she has mildly elevated AST and ALT per review of the EMR however has elevations in her higher today and include Alk phos. I did discuss patient with on-call urologist Dr Zamarripa at 02:05 who recommends admission, pain control, NPO, and giving a 1 time dose of ceftriaxone given patient has reported fevers. Will admit to the hospitalist after full labs have been obtained. Procedure Note: Ultrasound-guided peripheral venous catheter insertion An ultrasound-guided peripheral venous catheter is required in order to obtain vascular access in this patient. Alcohol prep pad is used to sterilize the area and a 20 gauge catheter was successfully inserted into the left AC under ultrasound visualization. The catheter flushes and draws back without difficulty or signs of extravasation. Catheter secured in place with Tegaderm. Mild leukocytosis. Discussed with on-call hospitalist Dr Felder at 02:50 who accepts admission. Otherwise stable. Differential Diagnosis Differential diagnosis: Likely abdominal pain, acute appendicitis, calculus of kidney (considered infected stone), constipation, diverticulitis, small bowel obstruction and other (UTI/pyelo) Medical Records Attestation: I reviewed the patient's medical records. Medical records narrative: CT Abd pelvis from 05/21/25 IMPRESSION: 1. Hydronephrosis right kidney due to distal 3 mm ureteral stone. Lab Data Attestation: I reviewed the patient's lab results. 05/24/25 02:37 05/24/25 00:39 Labs: Lab Results 05/23/25 05/24/25 05/24/25 Range/Units 23:33 00:39 02:37 WBC 11.6 H (4.5-10.0) K/mm3 RBC 4.58 (4.2-5.4) M/mm3 Hgb 11.9 L (12.0-15.0) g/dL Hct 38.2 (37.0-47.0) % MCV 83.4 (80-100) fl MCH 26.0 (26-34) pg MCHC 31.2 L (32-36) g/dl RDW 14.8 H (11.5-14.5) % Plt Count 197 (150-375) k/mm3 MPV 10.1 (7.4-10.4) fl Immature Gran % (Auto) 0.3 (0-0.5) % Neut % (Auto) 60.6 (45.5-73.1) % Lymph % (Auto) 26.3 (18.3-44.2) % [place] % (Auto) 11.7 H (2.6-8.5) % Eos % (Auto) 0.5 (0-4.4) % Baso % (Auto) 0.6 (0.2-1.2) % Lymph # (Auto) 3.04 (0.9-3.2) K/mm3 [place] # (Auto) 1.4 H (0.1-0.6) K/mm3 Eos # (Auto) 0.1 (0-0.3) K/mm3 Baso # (Auto) 0.1 (0.0-0.1) K/mm3 Abs Immat Gran (auto) 0.04 H (0.00-0.031) K/mm3 Absolute Neuts (auto) 7.0 H (1.3-6.7) K/mm3 Absolute Nucleated RBC 0.000 (0.0-0.012) K/mm3 Nucleated RBC % 0.0 (0.0-0.2) % PT 13.1 (11.1-14.7) Seconds INR 1.0 APTT 30.7 (22.3-36.8) Seconds Sodium 136 L (137-145) mmol/L Potassium 4.1 (3.4-5.0) mmol/L Chloride 108 H (98-107) mmol/L Carbon Dioxide 19 L (22-30) mmol/L Anion Gap 9 (4-12) mmol/L BUN 11 D (7-17) mg/dL Creatinine 0.59 L (0.7-1.0) mg/dL Estim Creat Clear Calc Not Reportable Estimated GFR > 60 (59 - ) Glucose 89 (65-110) mg/dL Calcium 9.0 (8.4-10.2) mg/dL Total Bilirubin 0.9 (0.2-1.3) mg/dL AST 73 H (14-36) U/L ALT 126 H (6-35) U/L Alkaline Phosphatase 140 H (38-126) U/L Total Protein 7.9 (6.3-8.2) g/dL Albumin 4.1 (3.5-5.1) g/dL Lipase 103 (23-300) U/L Urine Color Yellow (Yellow) Urine Appearance Clear (Clear) Urine pH 7.0 (5.0-9.0) Ur Specific [place] 1.017 (1.001-1.035) Urine Protein Negative (Negative) mg/dL Urine Glucose (UA) Negative (Negative) mg/dL Urine Ketones 1+ H (Negative) mg/dL Ur Blood (Man) 2+ H (Negative) Urine Nitrate Negative (Negative) Urine Bilirubin Negative (Negative) Urine Urobilinogen 1.0 (<2.0) mg/dL Leukocyte Esterase Rfl Trace H (Negative) PATRICK/UL Urine RBC >100 H (0-2) /hpf Urine WBC 0-5 (0-3) /hpf Ur Squamous Epith Cells None seen (Few) /hpf Urine Bacteria None seen /hpf Urine Casts 0-2 Imaging Data Radiologist's impression: ITS Impressions Abdomen/Pelvis CT 05/24/25 07:41 IMPRESSION: 1. 3 mm stone right UVJ. 2. Improving hydronephrosis right kidney. 3. Additional findings as above. CT Abd & Pelvis without contrast STat rad: Limited due to lack of IV contrast. right UVJ 0.3 cm stone, mild hydroureteronephrosis. Consider UTI or pyelonephritis. Discharge Plan Discharge Clinical Impression: Calculus of ureterovesical junction (UVJ), Leukocytosis Patient Disposition: Still a Patient Condition: Stable Time of Disposition: 02:51
[2025-05-24] MEDS: HYDROmorphone HCL INJ (*CRX) 1 MG/ML SYR IM (01:19)
[2025-05-24 01:31] LABS: Alanine Aminotransferase 126 U/L (6-35); Albumin Level 4.1 g/dL (3.5-5.1); Alkaline Phosphatase 140 U/L (38-126); Anion Gap 9 mmol/L (4-12); Aspartate Amino Transferase 73 U/L (14-36); Bilirubin,Total 0.9 mg/dL (0.2-1.3); Blood Urea Nitrogen 11 mg/dL (7-17); Calcium 9.0 mg/dL (8.4-10.2); Carbon Dioxide 19 mmol/L (22-30); Chloride 108 mmol/L (98-107); Estimated Glomerular Filt Rate > 60; Glucose 89 mg/dL (65-110); Potassium 4.1 mmol/L (3.4-5.0); Sodium 136 mmol/L (137-145); Total Protein 7.9 g/dL (6.3-8.2)
[2025-05-24 02:44] LABS: Hematocrit 38.2 % (37.0-47.0); Hemoglobin 11.9 g/dL (12.0-15.0); Immature Granulocyte Percent A 0.3 % (0-0.5); Lymphocytes Absolute Auto 3.04 K/mm3 (0.9-3.2); Mean Corpuscular HGB Conc 31.2 g/dl (32-36); Mean Corpuscular Hemoglobin 26.0 pg (26-34); Mean Corpuscular Volume 83.4 fl (80-100); Nucleated Red Blood Cells Absolute Auto 0.000 K/mm3 (0.0-0.012); Nucleated Red Blood Cells Perc 0.0 % (0.0-0.2); Platelet Count Result 197 k/mm3 (150-375); Red Blood Count 4.58 M/mm3 (4.2-5.4); White Blood Count 11.6 K/mm3 (4.5-10.0)
[2025-05-24] MEDS: cefTRIAXone 1 GM in SODIUM CHLORIDE 0.9% IV 50 ML 100 ML IVPB (02:46)
[2025-05-24 02:54] LABS: Lipase 103 U/L (23-300)
[2025-05-24 02:55] LABS: INR 1.0; Prothrombin Time 13.1 Seconds (11.1-14.7)
[2025-05-24 02:56] LABS: Partial Thromboplastin Time 30.7 Seconds (22.3-36.8)
[2025-05-24] MEDS: SODIUM CHLORIDE 0.9% IV 1,000 ML 125 ML IV CONT (03:04)
[2025-05-24] MEDS: HYDROmorphone HCL INJ (*CRX) 1 MG/ML SYR 0.5 MG IV PUSH ×7 (03:32→20:47)
--- NOTE | 2025-05-24 06:09 | WPDURCON ---
Assessment and Plan Assessment and plan (1) Right ureteral stone: Code(s): N20.1 - Calculus of ureter Status: Acute Assessment and Plan: Cystoscopy with right right ureteroscopy and stone extraction, possible retrograde pyelogram, laser lithotripsy and stent placement. Urology Consult Note HPI Date Seen: 05/24/25 Requesting Physician: Barbara Shah MD Primary Care Provider: Madhu Tilley MD Consult Narrative Narrative: Misti Golden is a 55 year old female Was a history of multiple recurrent stones was in the ER on Wednesday of this week with right flank pain and imaging demonstrating a 3 mm right distal ureteral calculus. Attempt was made at outpatient management but returns with intractable pain and reported fevers. She has had no gross hematuria. Review of Systems Review of Systems: All systems reviewed & are unremarkable except as noted in HPI and below PMFSH Past Medical History Medical History Bulging disc L5-S1 Finger fracture DDD (degenerative disc disease) Arthritis Depression Anxiety Epilepsy Migraine Abnormal uterine bleeding UTI (urinary tract infection) Gallbladder disease Kidney stone Surgical History Surgical History History of ventral hernia repair History of back surgery Status post right foot surgery x2 H/O tubal ligation H/O: hysterectomy History of x4 History of urethral stent Rt H/O lithotripsy H/O resection of small bowel History of gastric bypass History of cholecystectomy Hx of tonsillectomy Family History Family History Mother Hypertension H/O heart artery stent Father Family history of diabetes mellitus in first degree relative Patient's father is Family history of chronic obstructive pulmonary disease, Onset Age: 71 Sibling , 2024 Acute myocardial infarction Social History Social History (Updated 05/24/25 @ 02:59 by Sera Dietrich MD) Social History: Surrogate medical decision maker: Jonathan Golden, spouse. Code status: full code. Smoking status: Never smoker Second hand tobacco smoke exposure: No Alcohol intake: never Substance use: never Substance use type: does not use Do You Feel Safe in your Home?: Yes Lack of Transportation: No Lack of Food: Never True Current Housing: I Have Housing Concerned About Future Housing: No Difficulty Paying Gas/Electric Bills: No Difficulty Paying for Meds: No Currently Unemployed: No Education: Trade/Vocational Certificate Difficulty w/ Childcare or Family Care: No Additional living arrangements comments: The patient lives with her and 9-year-old son in [place]. Frequently babysits her grandchild who is 18mos Additional occupation/education comments: Disabled. Spiritual care concerns: No Meds Home Medications and Allergies Home Medications ?Medication ?Instructions ?Recorded ?Confirmed ?Type levetiracetam 1,000 mg tablet 1,000 mg PO Q12H 11/21/20 05/24/25 History tizanidine 4 mg tablet 4 mg PO QID PRN muscle spasticity 12/23/24 05/24/25 History promethazine 12.5 mg tablet 6.25 mg (1/2 x 12.5 mg) PO TID PRN 12/26/24 05/24/25 Rx nausea #3 tabs promethazine 25 mg rectal 25 mg RECTAL BID PRN nausea and 05/06/25 05/24/25 Rx suppository vomiting #12 ea tamsulosin 0.4 mg capsule (Flomax) 0.4 mg PO DAILY #10 caps 05/22/25 05/24/25 Rx Allergies Allergy/AdvReac Type Severity Reaction Status Date / Time esomeprazole Allergy Unknown Hives Verified 05/06/25 11:28 iodine Allergy Unknown Swelling Verified 05/06/25 11:28 of Lip/Tongue/Throat ketorolac (From Toradol) Allergy Hives Verified 05/06/25 11:28 Contrast Media Allergy Unknown Swelling Uncoded 01/09/25 19:00 of Lip/Tongue/Throat Vital Signs Vital Signs - 24 hr 05/23/25 20:41 05/23/25 22:58 05/23/25 23:00 Temperature 98.3 F Pulse Rate 107 H Respiratory Rate 20 Blood Pressure 152/86 H 181/101 H Pulse Oximetry 99 98 99 Oxygen Delivery Room Air 05/23/25 23:01 05/23/25 23:23 05/23/25 23:34 Temperature Pulse Rate Respiratory Rate Blood Pressure Pulse Oximetry 100 98 100 Oxygen Delivery 05/23/25 23:45 05/24/25 05:32 Temperature 98.2 F Pulse Rate 83 Respiratory Rate 16 Blood Pressure 130/70 Pulse Oximetry 98 99 Oxygen Delivery Exam Const: General: no acute distress Resp: Effort & Inspection: normal respiratory effort GI: Inspection: non-distended GI Palp: No abdominal tenderness and No Guarding due to palpation present (GI) Auscultation: normal bowel sounds Results Labs 05/24/25 02:37 05/24/25 00:39 Labs: Short CBC 05/24/25 Range/Units 02:37 WBC 11.6 H (4.5-10.0) K/mm3 Hgb 11.9 L (12.0-15.0) g/dL Hct 38.2 (37.0-47.0) % Plt Count 197 (150-375) k/mm3 BMP 05/24/25 00:39 Sodium 136 L Potassium 4.1 Chloride 108 H Carbon Dioxide 19 L BUN 11 D Creatinine 0.59 L Glucose 89 Calcium 9.0 Liver Function 05/24/25 Range/Units 00:39 Total Bilirubin 0.9 (0.2-1.3) mg/dL AST 73 H (14-36) U/L ALT 126 H (6-35) U/L Alkaline Phosphatase 140 H (38-126) U/L Albumin 4.1 (3.5-5.1) g/dL Urine 05/23/25 Range/Units 23:33 Urine Color Yellow (Yellow) Urine Appearance Clear (Clear) Urine pH 7.0 (5.0-9.0) Ur Specific [place] 1.017 (1.001-1.035) Urine Protein Negative (Negative) mg/dL Urine Glucose (UA) Negative (Negative) mg/dL
--- NOTE | 2025-05-24 06:11 | WPDHPUPDATE1 ---
History and Physical Update Update Date/Time: 05/24/25 06:11 History and Physical has been reviewed, including an updated exam of the patient. There are NO changes in the patient's condition. Risks, benefits, and alternatives have been discussed and questions answered. Patient agrees to proceed with procedure.
--- NOTE | 2025-05-24 06:47 | PC.NURSE ---
Patient has history of difficult IV access . Current IV is very positional and all IV fluids and Merripenem was held in ED r/t access. Multiple tries on the floor for new IV was unsucessful. Per ED, Accepting provider is aware of situation. Was able to flush and give one time dose of Dilaudid IV for pain. Patient states in the past she's had to have a midline. Will pass on information to dayshift for further interventions.
--- NOTE | 2025-05-24 07:31 | PM.IMHP ---
H&P: HPI History of Present Illness Date/Time: 05/24/25 07:31 Chief Complaint: Abdominal pain Narrative: Misti Golden is a 55 year old female hx seizures, who presented to the hospital for fevers and acute back pain. She reports fever of 103 2 days prior to admission. Right Back pain started acutely and she presented to the ED. No dysuria but feels she hasn't emptied her bladder after she urinates. In the ER, VSS. WBC elevated to 13.1, normal H&H, creatinine 0.59. 05/24/25 CT abd/pelvis showed a 3mm stone in the right UVJ, improving hydronephrosis right kidney. Urology was consulted for further management PMFSH Past Medical History Medical History Bulging disc L5-S1 Finger fracture DDD (degenerative disc disease) Arthritis Depression Anxiety Epilepsy Migraine Abnormal uterine bleeding UTI (urinary tract infection) Gallbladder disease Kidney stone Surgical History Surgical History History of ventral hernia repair History of back surgery Status post right foot surgery x2 H/O tubal ligation H/O: hysterectomy History of x4 History of urethral stent Rt H/O lithotripsy H/O resection of small bowel History of gastric bypass History of cholecystectomy Hx of tonsillectomy Family History Family History Mother Hypertension H/O heart artery stent Father Family history of diabetes mellitus in first degree relative Patient's father is Family history of chronic obstructive pulmonary disease, Onset Age: 71 Sibling , 2024 Acute myocardial infarction Social History Social History (Updated 05/24/25 @ 02:59 by Sera Dietrich MD) Social History: Surrogate medical decision maker: Jonathan Golden, spouse. Code status: full code. Smoking status: Never smoker Second hand tobacco smoke exposure: No Alcohol intake: never Substance use: never Substance use type: does not use Do You Feel Safe in your Home?: Yes Lack of Transportation: No Lack of Food: Never True Current Housing: I Have Housing Concerned About Future Housing: No Difficulty Paying Gas/Electric Bills: No Difficulty Paying for Meds: No Currently Unemployed: No Education: Associate Degree Difficulty w/ Childcare or Family Care: No Additional living arrangements comments: The patient lives with her and 9-year-old son in [place]. Frequently babysits her grandchild who is 18mos Additional occupation/education comments: Disabled. Spiritual care concerns: No Meds Home Medications and Allergies Home Medications ?Medication ?Instructions ?Recorded ?Confirmed ?Type levetiracetam 1,000 mg tablet 1,000 mg PO Q12H 11/21/20 05/24/25 History tizanidine 4 mg tablet 4 mg PO QID PRN muscle spasticity 12/23/24 05/24/25 History promethazine 12.5 mg tablet 6.25 mg (1/2 x 12.5 mg) PO TID PRN 12/26/24 05/24/25 Rx nausea #3 tabs promethazine 25 mg rectal 25 mg RECTAL BID PRN nausea and 05/06/25 05/24/25 Rx suppository vomiting #12 ea tamsulosin 0.4 mg capsule (Flomax) 0.4 mg PO DAILY #10 caps 05/22/25 05/24/25 Rx Allergies Allergy/AdvReac Type Severity Reaction Status Date / Time esomeprazole Allergy Unknown Hives Verified 05/06/25 11:28 iodine Allergy Unknown Swelling Verified 05/06/25 11:28 of Lip/Tongue/Throat ketorolac (From Toradol) Allergy Hives Verified 05/06/25 11:28 Contrast Media Allergy Unknown Swelling Uncoded 01/09/25 19:00 of Lip/Tongue/Throat Vital Signs Vital Signs - 24 hr 05/23/25 20:41 05/23/25 22:58 05/23/25 23:00 Temperature 98.3 F Pulse Rate 107 H Respiratory Rate 20 Blood Pressure 152/86 H 181/101 H Pulse Oximetry 99 98 99 Oxygen Delivery Room Air 05/23/25 23:01 05/23/25 23:23 05/23/25 23:34 Temperature Pulse Rate Respiratory Rate Blood Pressure Pulse Oximetry 100 98 100 Oxygen Delivery 05/23/25 23:45 05/24/25 05:32 Temperature 98.2 F Pulse Rate 83 Respiratory Rate 16 Blood Pressure 130/70 Pulse Oximetry 98 99 Oxygen Delivery Exam Narrative: General - Awake and alert. No acute distress Eyes - PERRLA, EOM intact ENT - No thrush, No erythema Neck - No noticeable or palpable swelling Lymph Nodes - No lymphadenopathy Cardiovascular - RRR no m/r/g, no JVD Lungs: Clear to auscultation, No wheezing, use of accessory muscles, no crackles or wheezes. Skin - Skin warm and dry, no wounds or rashes Abdomen - Normal bowel sounds, abdomen soft and nontender Extremities - No edema, cyanosis or clubbing Musculoskeletal - 5/5 strength, normal range of motion, no swollen or erythematous joints. Neurological ? Alert and oriented x 3, CN 2-12 grossly intact. Psych: Normal mood and affect H&P: Results Labs Labs: Short CBC 05/24/25 Range/Units 02:37 WBC 11.6 H (4.5-10.0) K/mm3 Hgb 11.9 L (12.0-15.0) g/dL Hct 38.2 (37.0-47.0) % Plt Count 197 (150-375) k/mm3 BMP 05/24/25 00:39 Sodium 136 L Potassium 4.1 Chloride 108 H Carbon Dioxide 19 L BUN 11 D Creatinine 0.59 L Glucose 89 Calcium 9.0 Liver Function 05/24/25 Range/Units 00:39 Total Bilirubin 0.9 (0.2-1.3) mg/dL AST 73 H (14-36) U/L ALT 126 H (6-35) U/L Alkaline Phosphatase 140 H (38-126) U/L Albumin 4.1 (3.5-5.1) g/dL Urine 05/23/25 Range/Units 23:33 Urine Color Yellow (Yellow) Urine Appearance Clear (Clear) Urine pH 7.0 (5.0-9.0) Ur Specific [place] 1.017 (1.001-1.035) Urine Protein Negative (Negative) mg/dL Urine Glucose (UA) Negative (Negative) mg/dL Assessment and Plan Assessment and plan (1) Fever: Code(s): R50.9 - Fever, unspecified Status: Acute Assessment and Plan: Reports fever at home up to 103 and chills 2 days ago. Urine culture in December & April grew enterobacter cloacae complex, resistant to several antibiotics --Blood cultures --Urien culture growing GNB --Continue Meropenem. Avoiding Cefepime due to hx seizures (2) Hydroureteronephrosis: Code(s): N13.30 - Unspecified hydronephrosis Status: Acute Assessment and Plan: Creatinine 0.59 Urology consulted, appreciate recommendations. Planning cystoscopy today (3) History of seizures: Code(s): Z87.898 - Personal history of other specified conditions Status: Acute Assessment and Plan: Hx seizures --Continue keppra (4) Right ureteral stone: Code(s): N20.1 - Calculus of ureter Status: Acute Assessment and Plan: Urology consulted, planning a cystoscopy today Quality VTE Prophylaxis VTE prophylaxis: pharmacologic ordered Hospitalist MIPS Advance Care Plan I have confirmed that the patient's Advanced Care Plan is present, code status is documented, or surrogate decision maker is listed in patient medical record.: Yes Medication Reconciliation I have utilized all available resources to obtain, update and review the patients current medications (includes all prescriptions, OTC, herbals, cannabis, and nutritional supplements).: Yes
[2025-05-24] MEDS: MEROPENEM 1 GM in SODIUM CHLORIDE 0.9% IV 100 ML 200 ML IVPB ×2 (08:09→14:33)
[2025-05-24] MEDS: ONDANSETRON INJ 4 MG/2 ML VIAL IV PUSH (08:18)
[2025-05-24] MEDS: PROMETHAZINE HCL 25 MG/ML AMPUL 12.5 MG IV PUSH ×2 (10:03→15:45)
--- NOTE | 2025-05-24 14:37 | WPDANESEPPF ---
Anes - Initial Pre Proc Eval Procedure: Operation Date: 05/24/25 17:15 Proposed Procedures p Cystoscopy, Right Stone Extraction - Ruben Melo MD Date/Time: 05/24/25 14:37 Surgeon: Barbara Shah MD Pre Op Diagnosis: UVJ stone Patient Data Age: 55 Gender: F Height: 1.63 m Weight: 91.7 kg Last Vital Signs Temp 36.8 C 05/24/25 05:32 Pulse 83 05/24/25 05:32 Resp 16 05/24/25 05:32 BP 130/70 05/24/25 05:32 Pulse Ox 99 05/24/25 05:32 O2 Del Method Room Air 05/24/25 08:12 Allergies Allergy/AdvReac Type Severity Reaction Status Date / Time esomeprazole Allergy Unknown Hives Verified 05/06/25 11:28 iodine Allergy Unknown Swelling Verified 05/06/25 11:28 of Lip/Tongue/Throat ketorolac (From Toradol) Allergy Hives Verified 05/06/25 11:28 Contrast Media Allergy Unknown Swelling Uncoded 01/09/25 19:00 of Lip/Tongue/Throat Home Medications ?Medication ?Instructions ?Recorded ?Confirmed ?Type levetiracetam 1,000 mg tablet 1,000 mg PO Q12H 11/21/20 05/24/25 History tizanidine 4 mg tablet 4 mg PO QID PRN muscle spasticity 12/23/24 05/24/25 History promethazine 12.5 mg tablet 6.25 mg (1/2 x 12.5 mg) PO TID PRN 12/26/24 05/24/25 Rx nausea #3 tabs promethazine 25 mg rectal 25 mg RECTAL BID PRN nausea and 05/06/25 05/24/25 Rx suppository vomiting #12 ea tamsulosin 0.4 mg capsule (Flomax) 0.4 mg PO DAILY #10 caps 05/22/25 05/24/25 Rx Laboratory Tests 05/23/25 05/24/25 05/24/25 23:33 00:39 02:37 WBC 11.6 H K/mm3 (4.5-10.0) RBC 4.58 M/mm3 (4.2-5.4) Hgb 11.9 L g/dL (12.0-15.0) Hct 38.2 % (37.0-47.0) MCV 83.4 fl (80-100) MCH 26.0 pg (26-34) MCHC 31.2 L g/dl (32-36) RDW 14.8 H % (11.5-14.5) Plt Count 197 k/mm3 (150-375) MPV 10.1 fl (7.4-10.4) Immature Gran % (Auto) 0.3 % (0-0.5) Neut % (Auto) 60.6 % (45.5-73.1) Lymph % (Auto) 26.3 % (18.3-44.2) Power % (Auto) 11.7 H % (2.6-8.5) Eos % (Auto) 0.5 % (0-4.4) Baso % (Auto) 0.6 % (0.2-1.2) Lymph # (Auto) 3.04 K/mm3 (0.9-3.2) Power # (Auto) 1.4 H K/mm3 (0.1-0.6) Eos # (Auto) 0.1 K/mm3 (0-0.3) Baso # (Auto) 0.1 K/mm3 (0.0-0.1) Abs Immat Gran (auto) 0.04 H K/mm3 (0.00-0.031) Absolute Neuts (auto) 7.0 H K/mm3 (1.3-6.7) Absolute Nucleated RBC 0.000 K/mm3 (0.0-0.012) Nucleated RBC % 0.0 % (0.0-0.2) PT 13.1 Seconds (11.1-14.7) INR 1.0 APTT 30.7 Seconds (22.3-36.8) Sodium 136 L mmol/L (137-145) Potassium 4.1 mmol/L (3.4-5.0) Chloride 108 H mmol/L (98-107) Carbon Dioxide 19 L mmol/L (22-30) Anion Gap 9 mmol/L (4-12) BUN 11 D mg/dL (7-17) Creatinine 0.59 L mg/dL (0.7-1.0) Estim Creat Clear Calc Not Reportable Estimated GFR > 60 (59 - ) Glucose 89 mg/dL (65-110) Calcium 9.0 mg/dL (8.4-10.2) Total Bilirubin 0.9 mg/dL (0.2-1.3) AST 73 H U/L (14-36) ALT 126 H U/L (6-35) Alkaline Phosphatase 140 H U/L (38-126) Total Protein 7.9 g/dL (6.3-8.2) Albumin 4.1 g/dL (3.5-5.1) Lipase 103 U/L (23-300) Urine Color Yellow (Yellow) Urine Appearance Clear (Clear) Urine pH 7.0 (5.0-9.0) Ur Specific [place] 1.017 (1.001-1.035) Urine Protein Negative mg/dL (Negative) Urine Glucose (UA) Negative mg/dL (Negative) Urine Ketones 1+ H mg/dL (Negative) Ur Blood (Man) 2+ H (Negative) Urine Nitrate Negative (Negative) Urine Bilirubin Negative (Negative) Urine Urobilinogen 1.0 mg/dL (<2.0) Leukocyte Esterase Rfl Trace H PATRICK/UL (Negative) Urine RBC >100 H /hpf (0-2) Urine WBC 0-5 /hpf (0-3) Ur Squamous Epith Cells None seen /hpf (Few) Urine Bacteria None seen /hpf Urine Casts 0-2 Patient hx anesthesia problems: none Family hx anesthesia problems: none Results Review: All pre-operative results and documents have been reviewed as part of the pre-operative evaluation. [facility] Past Medical History Medical History Bulging disc L5-S1 Finger fracture DDD (degenerative disc disease) Arthritis Depression Anxiety Epilepsy Migraine Abnormal uterine bleeding UTI (urinary tract infection) Gallbladder disease Kidney stone Surgical History Surgical History History of ventral hernia repair History of back surgery Status post right foot surgery x2 H/O tubal ligation H/O: hysterectomy History of x4 History of urethral stent Rt H/O lithotripsy H/O resection of small bowel History of gastric bypass History of cholecystectomy Hx of tonsillectomy Family History Family History Mother Hypertension H/O heart artery stent Father Family history of diabetes mellitus in first degree relative Patient's father is Family history of chronic obstructive pulmonary disease, Onset Age: 71 Sibling , 2024 Acute myocardial infarction Social History Social History (Updated 05/24/25 @ 02:59 by Sera Dietrich MD) Social History: Surrogate medical decision maker: Jonathan Golden, spouse. Code status: full code. Smoking status: Never smoker Second hand tobacco smoke exposure: No Alcohol intake: never Substance use: never Substance use type: does not use Do You Feel Safe in your Home?: Yes Lack of Transportation: No Lack of Food: Never True Current Housing: I Have Housing Concerned About Future Housing: No Difficulty Paying Gas/Electric Bills: No Difficulty Paying for Meds: No Currently Unemployed: No Education: Associate Degree Difficulty w/ Childcare or Family Care: No Additional living arrangements comments: The patient lives with her and 9-year-old son in [place]. Frequently babysits her grandchild who is 18mos Additional occupation/education comments: Disabled. Spiritual care concerns: No Anes - Eval Final PreProcedure Day of Procedure 05/24/25 14:37 Patient weight: obese Heart: regular rate and rhythm Lungs: clear to auscultation Airway: Mallampati scale class II Neurological: alert and oriented Last oral intake: >/= 8 hours ASA classification: III Emergent: no Anesthetic plan: proceed Anesthesia type and monitoring: general LMA and standard monitoring Results Review: All pre-operative results and documents have been reviewed as part of the pre-operative evaluation. Informed Consent: The patient's anesthetic plan and its attendant risks and benefits were discussed with the patient/family/POA. Questions were solicited and answers provided to the satisfaction of the patient/family/POA.
--- NOTE | 2025-05-24 17:00 | S_PTH ---
PATIENT: Misti Golden LOC: [id number] U#:[id number] AGE/SX: 55/F ROOM: 304 RE05/26/[address]: Nguyen Flores APRN : 1970 BED: 01 DIS: 05/27/2025 SPEC #: [id number] RECD: 05/25/25 07:11 STATUS: KAUSHIK REQ #: [id number] SAMIRA: 05/24/25 17:[address]: Ruben Melo DEPT: [facility] Surgical RECD BY: Kalie Chandra ENTERED: 05/25/25 07:12 SP TYPE: Surgical OTHR DR: MD Madhu Irizarry MD James P. Rybak, MD Evelyne Thomas, APRN Tissues: A - Stone Procedures: Gross Exam Level 1 Crystalline Analysis
--- NOTE | 2025-05-24 17:07 | W.PM.PROC2 ---
Procedure Note - Detailed Date of Procedure 05/24/25 Pre-op Diagnosis Right ureteral stone Post-op Diagnosis Same Procedure Performed cystoscopy, right ureteroscopy with stone extraction Surgeon Ruben Melo MD Anesthesia General Description of Procedure The patient was brought to the operative suite where she is prepped and draped in a routine sterile fashion while in the dorsal lithotomy position after the uneventful induction of a general LMA anesthetic. A 19F rigid cystoscope was placed in the bladder. The patient had no evidence of urethral stricture or bladder neck contracture. The bladder mucosa was endoscopically normal without hyperemia or neoplasm. There was a single, orthotopic ureteral orifice bilaterally. A 0.035 glidewire was advanced into the right renal pelvis under fluoroscopy. The distal ureter was dilated with an 8F/10F ureteral dilator. Ureteroscopy was undertaken with a short, tapered, semi-rigid ureteroscope and the stone was extracted with ease using a 1.9F Escape disposable stone basket. Due to the ease of this manipulation I opted not to place a ureteral stent. The patient's bladder was emptied and was taken to the recovery room having tolerated this procedure well. Drains No Pathology Yes Complications No immediate complications
[2025-05-24] MEDS: LACTATED RINGERS 1,000 ML 30 ML IV CONT (17:12)
[2025-05-24] MEDS: fentaNYL CITRATE INJ (*CRX) 100 MCG/2 ML VIAL 25 MCG IV PUSH ×4 (17:40→17:50)
--- NOTE | 2025-05-24 18:37 | PC.NURSE ---
Returned from OR per stetcher Report received from Myrtle TAYLOR.
[2025-05-24] MEDS: oxyCODONE HCL (*CRX) 5 MG TAB IR 10 MG PO ×2 (18:52→23:15)
[2025-05-24] MEDS: MEROPENEM 1 GM in SODIUM CHLORIDE 0.9% IV 100 ML IVPB (20:57)
[2025-05-25] MEDS: HYDROmorphone HCL INJ (*CRX) 1 MG/ML SYR 0.5 MG IV PUSH ×5 (00:14→20:28)
--- NOTE | 2025-05-25 00:28 | PC.NURSE ---
patient requested fluids to be turned off as it was making her Pee too much and it hurt. Patient education given. Patient has water at bedside and noted to be drinking
[2025-05-25] MEDS: oxyCODONE HCL (*CRX) 5 MG TAB IR 10 MG PO ×5 (03:30→22:02)
[2025-05-25] MEDS: MEROPENEM 1 GM in SODIUM CHLORIDE 0.9% IV 100 ML 200 ML IVPB (04:58)
--- NOTE | 2025-05-25 05:40 | PC.NURSE ---
patient lost IV access during Meropenem IV administration. Patient did not wish to attempt the other IV site. Patient received approximately 10 ml of atb before stopping.
--- NOTE | 2025-05-25 08:12 | WPDUROPN2 ---
Progress Note: A&P Assessment and Plan (1) Right ureteral stone: Code(s): N20.1 - Calculus of ureter Status: Acute Assessment and Plan: Feeling much better and afebrile this morning I'm comfortable with discharge with 5 days of antibiotics (Keflex or Omnicef). Follow-up in our office 2-3 weeks. Subjective Subjective Date/Time Seen: 05/25/25 08:12 Interval history: Feeling much better following ureteroscopy stone extraction Review of Systems Cardiovascular: Cardiovascular: Denies chest pain, Denies lightheadedness, Denies palpitations and Denies dyspnea Respiratory: Respiratory: Denies dyspnea Gastrointestinal: Gastrointestinal: Denies diarrhea, Denies nausea and Denies vomiting Genitourinary: Genitourinary: Denies hematuria and Denies dysuria Endocrine: Endocrine: Denies palpitations Exam Const: General: no acute distress Resp: Effort & Inspection: normal respiratory effort GI: Inspection: non-distended GI Palp: No abdominal tenderness and No Guarding due to palpation present (GI) Auscultation: normal bowel sounds Objective Data Vital Signs Vital Signs: Vital Signs - 24 hr 05/24/25 14:37 05/24/25 15:58 05/24/25 17:10 Temperature 97.0 F L 98.2 F 97.2 F L Pulse Rate 75 86 96 Respiratory Rate 16 16 20 Blood Pressure 128/78 130/72 120/87 Pulse Oximetry 97 99 100 Oxygen Delivery Room Air Simple Face Mask Oxygen Flow Rate 8 05/24/25 17:25 05/24/25 17:40 05/24/25 17:55 Temperature Pulse Rate 73 71 68 Respiratory Rate 16 16 16 Blood Pressure 131/94 H 140/82 113/73 Pulse Oximetry 100 98 98 Oxygen Delivery Simple Face Mask Room Air Room Air Oxygen Flow Rate 8 05/24/25 18:12 05/24/25 21:29 Temperature 97.8 F Pulse Rate 80 83 Respiratory Rate 16 16 Blood Pressure 113/73 139/82 Pulse Oximetry 98 98 Oxygen Delivery Room Air Oxygen Flow Rate Intake/Output Intake/Output: Intake & Output 05/22/25 05/23/25 05/24/25 05/25/25 23:59 23:59 23:59 23:59 Intake Total 450 1355 Balance 450 1355 Meds/Results Medications: Active Medications Generic Name Dose Route Start Last Admin Trade Name Freq PRN Reason Stop Dose Admin Acetaminophen 650 mg 05/24/25 02:51 Acetaminophen 325 Mg Tablet PO Q4H PRN Mild Pain (1-3) or Fever Enoxaparin Sodium 40 mg 05/25/25 09:00 Enoxaparin 40 Mg/0.4 Ml Syringe SUB-Q DAILY [facility] Hydromorphone HCl 0.5 mg 05/24/25 07:46 05/25/25 04:47 Hydromorphone Hcl Inj (*Crx) 1 Mg/Ml Syr IV PUSH 0.5 mg Q2H PRN Administration Breakthrough Pain Sodium Chloride 1,000 mls @ 125 mls/hr 05/24/25 02:55 05/25/25 00:34 Normal Saline Iv IV CONT Infused .Q8H [facility] Infusion Meropenem 1 gm/ Sodium 100 mls @ 200 mls/hr 05/24/25 07:45 05/25/25 05:39 Chloride IVPB Infused Q8HR [facility] Infusion Levetiracetam 1,000 mg 05/24/25 09:00 05/24/25 20:49 Levetiracetam 500 Mg Tablet PO 1,000 mg Q12HR [facility] Administration Ondansetron HCl 4 mg 05/24/25 07:49 05/24/25 08:18 Ondansetron Inj 4 Mg/2 Ml Vial IV PUSH 4 mg Q6H PRN Administration Nausea And Vomiting Oxycodone HCl 10 mg 05/24/25 07:45 05/25/25 03:30 Oxycodone Hcl (*Crx) 5 Mg Tab Ir PO 10 mg Q4H PRN Administration 1st line Polyethylene Glycol 17 gm 05/24/25 09:00 05/24/25 23:46 Polyethylene Glycol 3350 17 Gm Powd.Pack PO Not Given BID [facility] Promethazine HCl 12.5 mg 05/24/25 09:35 05/24/25 15:45 Promethazine Hcl 25 Mg/Ml Ampul IV PUSH 12.5 mg Q4H PRN Administration Nausea And Vomiting Promethazine HCl 25 mg 05/24/25 09:35 Promethazine Hcl 25 Mg Tablet PO Q4H PRN Nausea And Vomiting Senna 8.6 mg 05/24/25 21:00 05/25/25 00:36 Sennosides 8.6 Mg Tablet PO Not Given [facility] Radiology Results: ITS Impressions Abdomen/Pelvis CT 05/24/25 07:41 IMPRESSION: 1. 3 mm stone right UVJ. 2. Improving hydronephrosis right kidney. 3. Additional findings as above.
[2025-05-25] MEDS: ENOXAPARIN 40 MG/0.4 ML SYRINGE SUB-Q (08:30)
--- NOTE | 2025-05-25 10:50 | PM.IMPN ---
Progress Note: A&P Assessment and Plan (1) Fever: Code(s): R50.9 - Fever, unspecified Status: Acute Assessment and Plan: Reports fever at home up to 103 and chills 2 days ago. Urine culture in December & April grew enterobacter cloacae complex, resistant to cefoxitin and augmentin, intermediate nitrofurantoin --Blood cultures cancelled by lab. At this point would likely be negative on meropemen since fevers resolved --Check blood cultures if new fever --Urine culture growing GNB, culture pending. --Stop Meropenem. Avoiding Cefepime due to hx seizures. Starting Bactrim BID & monitoring (2) Hydroureteronephrosis: Code(s): N13.30 - Unspecified hydronephrosis Status: Acute Assessment and Plan: Creatinine 0.59 Urology consulted, appreciate recommendations. s/p cystoscopy 05/24 (3) History of seizures: Code(s): Z87.898 - Personal history of other specified conditions Status: Acute Assessment and Plan: Hx seizures --Continue keppra (4) Right ureteral stone: Code(s): N20.1 - Calculus of ureter Status: Acute Assessment and Plan: Urology consulted, planning a cystoscopy today (5) Acute pain: Code(s): R52 - Pain, unspecified Status: Acute Assessment and Plan: Pain and dysuria 2/2 UTI and procedure yesterday --Oxycodone, dilaudid prn (6) UTI (urinary tract infection): Qualifiers: Hematuria presence: with hematuria Urinary tract infection type: acute cystitis Qualified Code(s): N30.01 - Acute cystitis with hematuria Code(s): N39.0 - Urinary tract infection, site not specified Status: Acute Assessment and Plan: Urine culture growing enterobacter clocae complex Time Spent With Patient Time: 59 minutes Subjective Date/time seen: 05/25/25 10:50 Interval history: Fevers resolved. IV infiltrated and may not have gotten full dose of meropenem Urine culture pending. Previously had some resistance Still needing IV dilaudid intermittently between oxyodone doses Low abdominal pain Exam Narrative: General - Awake and alert. No acute distress Eyes - PERRLA, EOM intact ENT - No thrush, No erythema Neck - No noticeable or palpable swelling Lymph Nodes - No lymphadenopathy Cardiovascular - RRR no m/r/g, no JVD Lungs: Clear to auscultation, No wheezing, use of accessory muscles, no crackles or wheezes. Skin - Skin warm and dry, no wounds or rashes Abdomen - Normal bowel sounds, abdomen soft and mildly tender suprapubic Extremities - No edema, cyanosis or clubbing Musculoskeletal - 5/5 strength, normal range of motion, no swollen or erythematous joints. Neurological ? Alert and oriented x 3, CN 2-12 grossly intact. Psych: Normal mood and affect Objective Data Vital Signs Vital Signs: Vital Signs - 24 hr 05/24/25 14:37 05/24/25 15:58 05/24/25 17:10 Temperature 97.0 F L 98.2 F 97.2 F L Pulse Rate 75 86 96 Respiratory Rate 16 16 20 Blood Pressure 128/78 130/72 120/87 Pulse Oximetry 97 99 100 Oxygen Delivery Room Air Simple Face Mask Oxygen Flow Rate 8 05/24/25 17:25 05/24/25 17:40 05/24/25 17:55 Temperature Pulse Rate 73 71 68 Respiratory Rate 16 16 16 Blood Pressure 131/94 H 140/82 113/73 Pulse Oximetry 100 98 98 Oxygen Delivery Simple Face Mask Room Air Room Air Oxygen Flow Rate 8 05/24/25 18:12 05/24/25 21:29 Temperature 97.8 F Pulse Rate 80 83 Respiratory Rate 16 16 Blood Pressure 113/73 139/82 Pulse Oximetry 98 98 Oxygen Delivery Room Air Oxygen Flow Rate Intake/Output Intake/Output: Intake & Output 05/22/25 05/23/25 05/24/25 05/25/25 23:59 23:59 23:59 23:59 Intake Total 450 1835 Balance 450 1835 Meds/Results Medications: Active Medications Generic Name Dose Route Start Last Admin Trade Name Freq PRN Reason Stop Dose Admin Acetaminophen 650 mg 05/24/25 02:51 Acetaminophen 325 Mg Tablet PO Q4H PRN Mild Pain (1-3) or Fever Enoxaparin Sodium 40 mg 05/25/25 09:00 05/25/25 08:30 Enoxaparin 40 Mg/0.4 Ml Syringe SUB-Q 40 mg DAILY [facility] Administration Hydromorphone HCl 0.5 mg 05/24/25 07:46 05/25/25 09:39 Hydromorphone Hcl Inj (*Crx) 1 Mg/Ml Syr IV PUSH 0.5 mg Q2H PRN Administration Breakthrough Pain Sodium Chloride 1,000 mls @ 125 mls/hr 05/24/25 02:55 05/25/25 08:33 Normal Saline Iv IV CONT Not Given .Q8H [facility] Meropenem 1 gm/ Sodium 100 mls @ 200 mls/hr 05/24/25 07:45 05/25/25 05:39 Chloride IVPB Infused Q8HR [facility] Infusion Levetiracetam 1,000 mg 05/24/25 09:00 05/25/25 08:31 Levetiracetam 500 Mg Tablet PO 1,000 mg Q12HR [facility] Administration Ondansetron HCl 4 mg 05/24/25 07:49 05/24/25 08:18 Ondansetron Inj 4 Mg/2 Ml Vial IV PUSH 4 mg Q6H PRN Administration Nausea And Vomiting Oxycodone HCl 10 mg 05/24/25 07:45 05/25/25 08:31 Oxycodone Hcl (*Crx) 5 Mg Tab Ir PO 10 mg Q4H PRN Administration 1st line Polyethylene Glycol 17 gm 05/24/25 09:00 05/25/25 08:32 Polyethylene Glycol 3350 17 Gm Powd.Pack PO Not Given BID [facility] Promethazine HCl 12.5 mg 05/24/25 09:35 05/24/25 15:45 Promethazine Hcl 25 Mg/Ml Ampul IV PUSH 12.5 mg Q4H PRN Administration Nausea And Vomiting Promethazine HCl 25 mg 05/24/25 09:35 Promethazine Hcl 25 Mg Tablet PO Q4H PRN Nausea And Vomiting Senna 8.6 mg 05/24/25 21:00 05/25/25 00:36 Sennosides 8.6 Mg Tablet PO Not Given HS [facility] Radiology Results: ITS Impressions Abdomen/Pelvis CT 05/24/25 07:41 IMPRESSION: 1. 3 mm stone right UVJ. 2. Improving hydronephrosis right kidney. 3. Additional findings as above. Quality VTE Prophylaxis VTE prophylaxis: pharmacologic ordered Hospitalist [facility] Advance Care Plan I have confirmed that the patient's Advanced Care Plan is present, code status is documented, or surrogate decision maker is listed in patient medical record.: Yes Medication Reconciliation I have utilized all available resources to obtain, update and review the patients current medications (includes all prescriptions, OTC, herbals, cannabis, and nutritional supplements).: Yes
[2025-05-25 11:17] LABS: Hematocrit 38.1 % (37.0-47.0); Hemoglobin 11.9 g/dL (12.0-15.0); Immature Granulocyte Percent A 0.6 % (0-0.5); Lymphocytes Absolute Auto 1.94 K/mm3 (0.9-3.2); Mean Corpuscular HGB Conc 31.2 g/dl (32-36); Mean Corpuscular Hemoglobin 26.0 pg (26-34); Mean Corpuscular Volume 83.2 fl (80-100); Nucleated Red Blood Cells Absolute Auto 0.000 K/mm3 (0.0-0.012); Nucleated Red Blood Cells Perc 0.0 % (0.0-0.2); Platelet Count Result 232 k/mm3 (150-375); Red Blood Count 4.58 M/mm3 (4.2-5.4); White Blood Count 10.2 K/mm3 (4.5-10.0)
[2025-05-25 11:44] LABS: Alanine Aminotransferase 76 U/L (6-35); Albumin Level 3.6 g/dL (3.5-5.1); Alkaline Phosphatase 112 U/L (38-126); Anion Gap 6 mmol/L (4-12); Aspartate Amino Transferase 37 U/L (14-36); Bilirubin,Total 0.6 mg/dL (0.2-1.3); Blood Urea Nitrogen 12 mg/dL (7-17); CRP 8.3 mg/dL (<1.0); Calcium 8.6 mg/dL (8.4-10.2); Carbon Dioxide 22 mmol/L (22-30); Chloride 108 mmol/L (98-107); Estimated CRCL calculation 110 ml/min; Estimated Glomerular Filt Rate > 60; Glucose 123 mg/dL (65-110); Potassium 4.1 mmol/L (3.4-5.0); Sodium 136 mmol/L (137-145); Total Protein 6.7 g/dL (6.3-8.2)
[2025-05-25 11:58] LABS: Procalcitonin 0.2 ng/mL
[2025-05-25] MEDS: SULFAMETHOXAZOLE/TRIMETHOPRIM 800/160 MG DS TABLET 1 TAB PO ×2 (12:58→21:13)
[2025-05-25 13:03] VITALS: O2SAT 97
[2025-05-25 14:00] VITALS: BP 122/68; PULSE 91; RESP 16; TEMP 37; O2SAT 99
--- NOTE | 2025-05-25 14:28 | WPDANESPN ---
Anes - Prog Note Post-Op Date/Time: 05/25/25 14:28 Cardiovascular status: normal Respiratory status: normal Airway patency: baseline Mental status: baseline Vital Signs: Last Vital Signs Temp 36.6 C 05/24/25 21:29 Pulse 83 05/24/25 21:29 Resp 16 05/24/25 21:29 BP 139/82 05/24/25 21:29 Pulse Ox 97 05/25/25 13:03 O2 Del Method Room Air 05/25/25 13:03 O2 Flow Rate 8 05/24/25 17:25 Pain Score (VAS): 3 I/O: Intake & Output 05/24/25 05/25/25 05/25/25 23:59 07:59 15:59 Intake Total 200 1355 480 Balance 200 1355 480 Laboratory Tests 05/25/25 11:09 05/25/25 11:09 05/25/25 11:09 WBC 10.2 H RBC 4.58 Hgb 11.9 L Hct 38.1 MCV 83.2 MCH 26.0 MCHC 31.2 L RDW 14.5 Plt Count 232 MPV 10.1 Immature Gran % (Auto) 0.6 H Neut % (Auto) 69.6 Lymph % (Auto) 19.0 [place] % (Auto) 9.8 H Eos % (Auto) 0.5 Baso % (Auto) 0.5 Lymph # (Auto) 1.94 [place] # (Auto) 1.0 H Eos # (Auto) 0.1 Baso # (Auto) 0.1 Abs Immat Gran (auto) 0.06 H Absolute Neuts (auto) 7.1 H Absolute Nucleated RBC 0.000 Nucleated RBC % 0.0 ESR 33 H Sodium 136 L Potassium 4.1 Chloride 108 H Carbon Dioxide 22 Anion Gap 6 BUN 12 Creatinine 0.53 L Estim Creat Clear Calc 110 Estimated GFR > 60 Glucose 123 H Calcium 8.6 Total Bilirubin 0.6 AST 37 H ALT 76 H Alkaline Phosphatase 112 C-Reactive Protein 8.3 H Total Protein 6.7 Albumin 3.6 Procalcitonin 0.2 Patient Feedback: Patient satisfied with anesthetic care.
[2025-05-25 21:00] VITALS: BP 111/67; PULSE 88; RESP 16; TEMP 36.7; O2SAT 98
[2025-05-25] MEDS: SENNOSIDES 8.6 MG TABLET PO (21:13)
[2025-05-25 21:26] VITALS: O2SAT 98
[2025-05-25] MEDS: ONDANSETRON INJ 4 MG/2 ML VIAL IV PUSH (21:57)
[2025-05-26] MEDS: HYDROmorphone HCL INJ (*CRX) 1 MG/ML SYR 0.5 MG IV PUSH ×3 (00:16→08:20)
[2025-05-26] MEDS: oxyCODONE HCL (*CRX) 5 MG TAB IR 10 MG PO ×4 (02:22→22:26)
[2025-05-26] MEDS: ONDANSETRON INJ 4 MG/2 ML VIAL IV PUSH ×2 (04:46→13:24)
[2025-05-26 06:00] VITALS: BP 122/74; PULSE 74; RESP 16; TEMP 36.8; O2SAT 96
--- NOTE | 2025-05-26 07:18 | P.PNIM_ITS ---
Progress Note: A&P Assessment and Plan (1) Fever: Code(s): R50.9 - Fever, unspecified Status: Acute Assessment and Plan: Reports fever at home up to 103 and chills 2 days ago. Urine culture in December & April grew enterobacter cloacae complex, resistant to cefoxitin and augmentin, intermediate nitrofurantoin --Blood cultures cancelled by lab. At this point would likely be negative on meropemen since fevers resolved --Check blood cultures if new fever --Urine culture growing GNB, culture pending, growing enterobacter and klebsiella. Enterobacter sensitive to bactrim. Klebsiella pending UA had >100 RBC's but no WBC's. Repeat UA 11-20 RBC's, 6-10 WBC's. --Stopped Meropenem. Avoiding Cefepime due to hx seizures. Also avoiding oral cephalosporins due to risk of seizures, though overall low risk -- Started Bactrim BID 05/25 & monitoring (2) UTI (urinary tract infection): Qualifiers: Hematuria presence: with hematuria Urinary tract infection type: acute cystitis Qualified Code(s): N30.01 - Acute cystitis with hematuria Code(s): N39.0 - Urinary tract infection, site not specified Status: Acute Assessment and Plan: Urine culture growing enterobacter clocae complex & klebsiella, cultures pending (3) Hydroureteronephrosis: Code(s): N13.30 - Unspecified hydronephrosis Status: Acute Assessment and Plan: Creatinine 0.59 Urology consulted, appreciate recommendations. s/p cystoscopy 05/24, stone extracted. Did not require a stent (4) History of seizures: Code(s): Z87.898 - Personal history of other specified conditions Status: Acute Assessment and Plan: Hx seizures --Continue keppra (5) Right ureteral stone: Code(s): N20.1 - Calculus of ureter Status: Acute Assessment and Plan: s/p cystoscopy 05/24 (6) Acute pain: Code(s): R52 - Pain, unspecified Status: Acute Assessment and Plan: Pain and dysuria 2/2 UTI and procedure 05/24 --Tylenol, Oxycodone, dilaudid prn --Avoiding scheduled tylenol to monitor for fevers pending cultures (7) Nausea & vomiting: Qualifiers: Vomiting Intractability: non-intractable Vomiting type: unspecified Qualified Code(s): R11.2 - Nausea with vomiting, unspecified Code(s): R11.2 - Nausea with vomiting, unspecified Status: Inactive Assessment and Plan: Several episodes of vomiting Phenergan, Zofran, benadryl prn Time Spent With Patient Time: 57 minutes Subjective Date/time seen: 05/26/25 07:18 Interval history: Having right flank pain and emesis last night and this morning. Improving after phenergan and zofran. IV not working well for fluids. Feels right flank pain similar to prior stone Urine culture growing GNB. Dysuria post procedure resolved. Exam Narrative: General - Awake and alert. No acute distress Eyes - PERRLA, EOM intact ENT - No thrush, No erythema Neck - No noticeable or palpable swelling Lymph Nodes - No lymphadenopathy Cardiovascular - RRR no m/r/g, no JVD Lungs: Clear to auscultation, No wheezing, use of accessory muscles, no crackles or wheezes. Skin - Skin warm and dry, no wounds or rashes Abdomen - Normal bowel sounds, abdomen soft and mildly tender suprapubic Extremities - No edema, cyanosis or clubbing Musculoskeletal - 5/5 strength, normal range of motion, no swollen or erythematous joints. Tender right flank Neurological ? Alert and oriented x 3, CN 2-12 grossly intact. Psych: Normal mood and affect Objective Data Vital Signs Vital Signs: Vital Signs - 24 hr 05/25/25 13:03 05/25/25 14:00 05/25/25 21:00 Temperature 98.6 F 98.1 F Pulse Rate 91 88 Respiratory Rate 16 16 Blood Pressure 122/68 111/67 Pulse Oximetry 97 99 98 Oxygen Delivery Room Air 05/26/25 06:00 Temperature 98.2 F Pulse Rate 74 Respiratory Rate 16 Blood Pressure 122/74 Pulse Oximetry 96 Oxygen Delivery Intake/Output Intake/Output: Intake & Output 05/23/25 05/24/25 05/25/25 05/26/25 23:59 23:59 23:59 23:59 Intake Total 450 3305 Balance 450 3305 Meds/Results Medications: Active Medications Generic Name Dose Route Start Last Admin Trade Name Freq PRN Reason Stop Dose Admin Acetaminophen 650 mg 05/24/25 02:51 Acetaminophen 325 Mg Tablet PO Q4H PRN Mild Pain (1-3) or Fever Enoxaparin Sodium 40 mg 05/25/25 09:00 05/25/25 08:30 Enoxaparin 40 Mg/0.4 Ml Syringe SUB-Q 40 mg DAILY [facility] Administration Hydromorphone HCl 0.5 mg 05/24/25 07:46 05/26/25 04:40 Hydromorphone Hcl Inj (*Crx) 1 Mg/Ml Syr IV PUSH 0.5 mg Q2H PRN Administration Breakthrough Pain Sodium Chloride 1,000 mls @ 125 mls/hr 05/24/25 02:55 05/26/25 03:16 Normal Saline Iv IV CONT Not Given .Q8H [facility] Levetiracetam 1,000 mg 05/24/25 09:00 05/25/25 21:12 Levetiracetam 500 Mg Tablet PO 1,000 mg Q12HR [facility] Administration Ondansetron HCl 4 mg 05/24/25 07:49 05/26/25 04:46 Ondansetron Inj 4 Mg/2 Ml Vial IV PUSH 4 mg Q6H PRN Administration Nausea And Vomiting Oxycodone HCl 10 mg 05/24/25 07:45 05/26/25 07:05 Oxycodone Hcl (*Crx) 5 Mg Tab Ir PO 10 mg Q4H PRN Administration 1st line Polyethylene Glycol 17 gm 05/24/25 09:00 05/25/25 16:31 Polyethylene Glycol 3350 17 Gm Powd.Pack PO Not Given BID [facility] Promethazine HCl 12.5 mg 05/24/25 09:35 05/24/25 15:45 Promethazine Hcl 25 Mg/Ml Ampul IV PUSH 12.5 mg Q4H PRN Administration Nausea And Vomiting Promethazine HCl 25 mg 05/24/25 09:35 Promethazine Hcl 25 Mg Tablet PO Q4H PRN Nausea And Vomiting Senna 8.6 mg 05/24/25 21:00 05/25/25 21:13 Sennosides 8.6 Mg Tablet PO 8.6 mg HS [facility] Administration Trimethoprim/Sulfamethoxazole 1 tab 05/25/25 11:45 05/25/25 21:13 Sulfamethoxazole/Trimethoprim 800/160 Mg Ds Tablet PO 1 tab Q12HR [facility] Administration Radiology Results: ITS Impressions Abdomen/Pelvis CT 05/24/25 07:41 IMPRESSION: 1. 3 mm stone right UVJ. 2. Improving hydronephrosis right kidney. 3. Additional findings as above. Retrograde Pyelogram 05/25/25 11:25 IMPRESSION: 1. Fluoroscopy utilized during urologic procedure at the right ureter. See procedure note for further detail. Labs Labs: Laboratory Results - last 24 hr 05/25/25 11:09 WBC 10.2 H RBC 4.58 Hgb 11.9 L Hct 38.1 MCV 83.2 MCH 26.0 MCHC 31.2 L RDW 14.5 Plt Count 232 MPV 10.1 Immature Gran % (Auto) 0.6 H Neut % (Auto) 69.6 Lymph % (Auto) 19.0 [place] % (Auto) 9.8 H Eos % (Auto) 0.5 Baso % (Auto) 0.5 Lymph # (Auto) 1.94 [place] # (Auto) 1.0 H Eos # (Auto) 0.1 Baso # (Auto) 0.1 Abs Immat Gran (auto) 0.06 H Absolute Neuts (auto) 7.1 H Absolute Nucleated RBC 0.000 Nucleated RBC % 0.0 ESR 33 H Sodium 136 L Potassium 4.1 Chloride 108 H Carbon Dioxide 22 Anion Gap 6 BUN 12 Creatinine 0.53 L Estim Creat Clear Calc 110 Estimated GFR > 60 Glucose 123 H Calcium 8.6 Total Bilirubin 0.6 AST 37 H ALT 76 H Alkaline Phosphatase 112 C-Reactive Protein 8.3 H Total Protein 6.7 Albumin 3.6 Procalcitonin 0.2 Quality VTE Prophylaxis VTE prophylaxis: pharmacologic ordered Hospitalist [facility] Advance Care Plan I have confirmed that the patient's Advanced Care Plan is present, code status is documented, or surrogate decision maker is listed in patient medical record.: Yes Medication Reconciliation I have utilized all available resources to obtain, update and review the patients current medications (includes all prescriptions, OTC, herbals, cannabis, and nutritional supplements).: Yes
[2025-05-26] MEDS: ENOXAPARIN 40 MG/0.4 ML SYRINGE SUB-Q (08:27)
[2025-05-26] MEDS: SULFAMETHOXAZOLE/TRIMETHOPRIM 800/160 MG DS TABLET 1 TAB PO ×2 (08:27→20:09)
[2025-05-26] MEDS: PROMETHAZINE HCL 25 MG TABLET PO (08:27)
[2025-05-26] MEDS: SODIUM CHLORIDE 0.9% IV 1,000 ML 100 ML IV CONT (10:37)
[2025-05-26 10:59] LABS: Add Urine Microscopic? YES; Appearance Urine Clear (Clear); Glucose Urine UA Negative (Negative); Leukocyte Esterase Ur 1+ LEU/UL (Negative); Nitrate Urine Negative (Negative); Non Pathogenic Casts 0-2; Specific Grav Ur 1.019 (1.001-1.035)
[2025-05-26 14:00] VITALS: BP 127/67; PULSE 87; RESP 14; TEMP 36; O2SAT 98
[2025-05-26] MEDS: HYDROmorphone HCL INJ (*CRX) 1 MG/ML SYR 0.2 MG IV PUSH ×2 (15:18→20:07)
[2025-05-26] MEDS: SENNOSIDES 8.6 MG TABLET PO (16:12)
[2025-05-26] MEDS: PROMETHAZINE HCL 25 MG/ML AMPUL 12.5 MG IV PUSH (16:47)
[2025-05-26] MEDS: oxyCODONE HCL (*CRX) 5 MG TAB IR PO (18:03)
[2025-05-26 20:55] VITALS: BP 108/72; PULSE 69; RESP 16; TEMP 36.9; O2SAT 99
[2025-05-27] MEDS: HYDROmorphone HCL INJ (*CRX) 1 MG/ML SYR 0.2 MG IV PUSH ×3 (01:17→11:23)
[2025-05-27] MEDS: ONDANSETRON INJ 4 MG/2 ML VIAL IV PUSH (01:17)
[2025-05-27] MEDS: oxyCODONE HCL (*CRX) 5 MG TAB IR 10 MG PO (03:29)
[2025-05-27] MEDS: SODIUM CHLORIDE 0.9% IV 1,000 ML 100 ML IV CONT (03:29)
[2025-05-27 06:00] VITALS: BP 106/67; PULSE 79; RESP 16; TEMP 36.5; O2SAT 96
--- NOTE | 2025-05-27 07:14 | P.PNIM_ITS ---
Subjective Date/time seen: 05/27/25 07:14 Interval history: Pending labs. Afebrile overnight. Add back tylenol Objective Data Vital Signs Vital Signs: Vital Signs - 24 hr 05/26/25 14:00 05/26/25 20:55 05/27/25 06:00 Temperature 96.8 F L 98.4 F 97.7 F Pulse Rate 87 69 79 Respiratory Rate 14 16 16 Blood Pressure 127/67 108/72 106/67 Pulse Oximetry 98 99 96 Intake/Output Intake/Output: Intake & Output 05/24/25 05/25/25 05/26/25 05/27/25 23:59 23:59 23:59 23:59 Intake Total 450 3305 1420 Output Total 1350 Balance 450 3305 70 Meds/Results Medications: Active Medications Generic Name Dose Route Start Last Admin Trade Name Freq PRN Reason Stop Dose Admin Acetaminophen 650 mg 05/24/25 02:51 Acetaminophen 325 Mg Tablet PO Q4H PRN Mild Pain (1-3) or Fever Diphenhydramine HCl 50 mg 05/26/25 09:34 Diphenhydramine Hcl Cap 25 Mg Capsule PO Q6H PRN Itching or nausea (3rd line) Enoxaparin Sodium 40 mg 05/25/25 09:00 05/26/25 08:27 Enoxaparin 40 Mg/0.4 Ml Syringe SUB-Q 40 mg DAILY [facility] Administration Hydromorphone HCl 0.2 mg 05/26/25 14:35 05/27/25 04:51 Hydromorphone Hcl Inj (*Crx) 1 Mg/Ml Syr IV PUSH 0.2 mg Q4H PRN Administration Breakthrough Pain Hydromorphone HCl 0.5 mg 05/26/25 14:36 Hydromorphone Hcl Inj (*Crx) 1 Mg/Ml Syr IV PUSH ONCE PRN severe pain unrelieved by 0.2 Sodium Chloride 1,000 mls @ 100 mls/hr 05/26/25 09:40 05/27/25 03:29 Normal Saline Iv IV CONT 05/28/25 09:39 100 mls/hr .Q10H [facility] Administration Levetiracetam 1,000 mg 05/24/25 09:00 05/26/25 20:08 Levetiracetam 500 Mg Tablet PO 1,000 mg Q12HR [facility] Administration Ondansetron HCl 4 mg 05/24/25 07:49 05/27/25 01:17 Ondansetron Inj 4 Mg/2 Ml Vial IV PUSH 4 mg Q6H PRN Administration Nausea And Vomiting Oxycodone HCl 5 mg 05/26/25 14:35 05/26/25 18:03 Oxycodone Hcl (*Crx) 5 Mg Tab Ir PO 5 mg Q4H PRN Administration 1st line for moderate pain Oxycodone HCl 10 mg 05/26/25 14:35 05/27/25 03:29 Oxycodone Hcl (*Crx) 5 Mg Tab Ir PO 10 mg Q4H PRN Administration 1st line for severe pain Polyethylene Glycol 17 gm 05/24/25 09:00 05/26/25 16:12 Polyethylene Glycol 3350 17 Gm Powd.Pack PO 17 gm BID [facility] Administration Promethazine HCl 12.5 mg 05/24/25 09:35 05/26/25 16:47 Promethazine Hcl 25 Mg/Ml Ampul IV PUSH 12.5 mg Q4H PRN Administration Nausea And Vomiting Promethazine HCl 25 mg 05/24/25 09:35 05/26/25 08:27 Promethazine Hcl 25 Mg Tablet PO 25 mg Q4H PRN Administration Nausea And Vomiting Senna 8.6 mg 05/26/25 17:00 05/26/25 16:12 Sennosides 8.6 Mg Tablet PO 8.6 mg BID [facility] Administration Trimethoprim/Sulfamethoxazole 1 tab 05/25/25 11:45 05/26/25 20:09 Sulfamethoxazole/Trimethoprim 800/160 Mg Ds Tablet PO 1 tab Q12HR [facility] Administration Radiology Results: ITS Impressions Abdomen/Pelvis CT 05/24/25 07:41 IMPRESSION: 1. 3 mm stone right UVJ. 2. Improving hydronephrosis right kidney. 3. Additional findings as above. Retrograde Pyelogram 05/25/25 11:25 IMPRESSION: 1. Fluoroscopy utilized during urologic procedure at the right ureter. See procedure note for further detail. Labs Labs: Laboratory Results - last 24 hr 05/26/25 10:47 Urine Color Yellow Urine Appearance Clear Urine pH 6.0 Ur Specific [place] 1.019 Urine Protein Negative Urine Glucose (UA) Negative Urine Ketones Negative Ur Blood (Man) 1+ H Urine Nitrate Negative Urine Bilirubin Negative Urine Urobilinogen 1.0 Leukocyte Esterase Rfl 1+ H Urine RBC 11-20 H Urine WBC 6-10 H Ur Squamous Epith Cells Occasional Urine Bacteria None seen Urine Casts 0-2
[2025-05-27 08:14] LABS: Hematocrit 35.7 % (37.0-47.0); Hemoglobin 11.0 g/dL (12.0-15.0); Immature Granulocyte Percent A 0.3 % (0-0.5); Lymphocytes Absolute Auto 2.75 K/mm3 (0.9-3.2); Mean Corpuscular HGB Conc 30.8 g/dl (32-36); Mean Corpuscular Hemoglobin 25.6 pg (26-34); Mean Corpuscular Volume 83.2 fl (80-100); Nucleated Red Blood Cells Absolute Auto 0.000 K/mm3 (0.0-0.012); Nucleated Red Blood Cells Perc 0.0 % (0.0-0.2); Platelet Count Result 220 k/mm3 (150-375); Red Blood Count 4.29 M/mm3 (4.2-5.4); White Blood Count 6.6 K/mm3 (4.5-10.0)
[2025-05-27] MEDS: SULFAMETHOXAZOLE/TRIMETHOPRIM 800/160 MG DS TABLET 1 TAB PO (08:15)
[2025-05-27] MEDS: oxyCODONE HCL (*CRX) 5 MG TAB IR PO (08:15)
[2025-05-27] MEDS: ENOXAPARIN 40 MG/0.4 ML SYRINGE SUB-Q (08:16)
[2025-05-27] MEDS: SENNOSIDES 8.6 MG TABLET PO (08:16)
[2025-05-27 08:25] LABS: Alanine Aminotransferase 45 U/L (6-35); Albumin Level 3.2 g/dL (3.5-5.1); Alkaline Phosphatase 99 U/L (38-126); Anion Gap 7 mmol/L (4-12); Aspartate Amino Transferase 25 U/L (14-36); Bilirubin,Total 0.4 mg/dL (0.2-1.3); Blood Urea Nitrogen 7 mg/dL (7-17); Calcium 8.3 mg/dL (8.4-10.2); Carbon Dioxide 22 mmol/L (22-30); Chloride 108 mmol/L (98-107); Estimated CRCL calculation 99 ml/min; Estimated Glomerular Filt Rate > 60; Glucose 83 mg/dL (65-110); Potassium 3.9 mmol/L (3.4-5.0); Sodium 137 mmol/L (137-145); Total Protein 6.1 g/dL (6.3-8.2)
--- NOTE | 2025-05-27 10:30 | P.DS_ITS ---
DS: Admitting Diagnosis Discharge Date 05/27/2025 Admitting Diagnosis Calculus of ureter UTI DS: Discharge Diagnosis Discharge Diagnosis (1) Right ureteral stone: Code(s): N20.1 - Calculus of ureter Status: Acute (2) UTI (urinary tract infection): Qualifiers: Hematuria presence: with hematuria Urinary tract infection type: acute cystitis Qualified Code(s): N30.01 - Acute cystitis with hematuria Code(s): N39.0 - Urinary tract infection, site not specified Status: Acute DS: Summary Hospital Course Reason for hospitalization: Copied from [facility] 05/24: Misti Golden is a 55 year old female hx seizures, who presented to the hospital for fevers and acute back pain. She reports fever of 103 2 days prior to admission. Right Back pain started acutely and she presented to the ED. No dysuria but feels she hasn't emptied her bladder after she urinates. In the ER, VSS. WBC elevated to 13.1, normal H&H, creatinine 0.59. 05/24/25 CT abd/pelvis showed a 3mm stone in the right UVJ, improving hydronephrosis right kidney. Urology was consulted for further management Hospital Course: Misti Golden was admitted for flank pain, treated for a kidney stone and a UTI. Remained admitted after extraction for symptom control, nausea/vomiting requiring IV antiemetics Fever: Reports fever at home up to 103 and chills 2 days prior to admission. Urine culture in December & April grew enterobacter cloacae complex, resistant to cefoxitin and augmentin, intermediate nitrofurantoin --Blood cultures cancelled by lab. Fevers resolved. Would likely be negative on meropemen --Urine culture growing GNB, culture pending, growing grew klebsiella. UA had >100 RBC's but no WBC's. Repeat UA 11-20 RBC's, 6-10 WBC's. --Stopped Meropenem. Avoiding Cefepime due to hx seizures. Also avoiding oral cephalosporins due to risk of seizures, though overall low risk -- Started Bactrim BID 05/25 remained afebrile, improving, continued antibiotics for discharge, 9 more days to treat a complicated UTI UTI (urinary tract infection): Urine culture growing klebsiella, sensitive to Bactrim Hydroureteronephrosis: Right ureteral stone: Creatinine 0.59 Urology consulted, appreciate recommendations. s/p cystoscopy 05/24, stone extracted. Did not require a stent History of seizures: Hx seizures --Continued keppra Acute pain: Pain and dysuria 2/2 UTI and procedure 05/24 --Tylenol, Oxycodone, dilaudid prn --Avoiding scheduled tylenol to monitor for fevers pending cultures. Remained afebrile Nausea & vomiting: Several episodes of vomiting Phenergan, Zofran, benadryl prn Status at Discharge Cognitive/behavioral status at discharge: A&Ox4 Time Spent with Patient Time attestation: Total time spent providing and/or coordinating discharge services: 58 Exam Narrative: General - Awake and alert. No acute distress Eyes - PERRLA, EOM intact ENT - No thrush, No erythema Neck - No noticeable or palpable swelling Lymph Nodes - No lymphadenopathy Cardiovascular - RRR no m/r/g, no JVD Lungs: Clear to auscultation, No wheezing, use of accessory muscles, no crackles Skin - Skin warm and dry, no wounds or rashes Abdomen - Normal bowel sounds, abdomen soft and nontender Extremities - No edema, cyanosis or clubbing Musculoskeletal - 5/5 strength, normal range of motion, no swollen or erythematous joints. Neurological ? Alert and oriented x 3, CN 2-12 grossly intact. Psych: Normal mood and affect DS: Data Data Completed and Pending Pending studies at discharge: Pending at discharge 05/24/25 17:00 Surgical [PTH] Routine Labs on day of discharge: Labs from last 24 hours 05/27/25 05/26/25 08:06 10:47 WBC 6.6 RBC 4.29 Hgb 11.0 L Hct 35.7 L MCV 83.2 MCH 25.6 L MCHC 30.8 L RDW 14.5 Plt Count 220 MPV 10.5 H Immature Gran % (Auto) 0.3 Neut % (Auto) 42.8 L Lymph % (Auto) 41.7 [place] % (Auto) 9.7 H Eos % (Auto) 4.6 H Baso % (Auto) 0.9 Lymph # (Auto) 2.75 [place] # (Auto) 0.6 Eos # (Auto) 0.3 Baso # (Auto) 0.1 Abs Immat Gran (auto) 0.02 Absolute Neuts (auto) 2.8 Absolute Nucleated RBC 0.000 Nucleated RBC % 0.0 Sodium 137 Potassium 3.9 Chloride 108 H Carbon Dioxide 22 Anion Gap 7 BUN 7 D Creatinine 0.60 L Estim Creat Clear Calc 99 Estimated GFR > 60 Glucose 83 Calcium 8.3 L Total Bilirubin 0.4 AST 25 ALT 45 H Alkaline Phosphatase 99 Total Protein 6.1 L Albumin 3.2 L Urine Color Yellow Urine Appearance Clear Urine pH 6.0 Ur Specific [place] 1.019 Urine Protein Negative Urine Glucose (UA) Negative Urine Ketones Negative Ur Blood (Man) 1+ H Urine Nitrate Negative Urine Bilirubin Negative Urine Urobilinogen 1.0 Leukocyte Esterase Rfl 1+ H Urine RBC 11-20 H Urine WBC 6-10 H Ur Squamous Epith Cells Occasional Urine Bacteria None seen Urine Casts 0-2 Discharge Plan Discharge Attending physician on discharge: Nguyen Flores Consulting providers: Ruben Melo; Shaw Delaney; Kailee rAambula; David Plascencia; Adams Okeefe Discharging Clinician: Nguyen Flores Anticipated Discharge Date/Time: 05/27/25 10:29 Patient Disposition: Home Activity: december shower Diet: regular Wound Care Instructions: follow printed instructions Discharge Instructions: Follow up with your PCP in 1-2 weeks. Follow up with Dr. Melo in 2-3 weeks. Call for an appointment if you do not receive a call Patient Instructions: Antibiotic Form, Kidney Stones (GEN) Patient Language: Bel[place]ian Stand Alone Forms: General Discharge Information Follow-up/Referrals: Ruben Melo MD [Physician, Urology] - 2 Weeks Discharge Medications: New polyethylene glycol 3350 [Miralax] 17 gram Powder In Packet 17 g PO BID PRN (Reason: Constipation) Qty: 30 0RF oxycodone 5 mg Tablet 5 mg PO Q4H PRN (Reason: 1st line for moderate pain) 5 Days Qty: 15 0RF Rx Instructions: May take 1 or 2 tabs as needed (5-10mg) sulfamethoxazole-trimethoprim 800-160 mg Tablet 1 tab PO Q12HR 9 Days Qty: 18 0RF promethazine 25 mg Tablet 25 mg PO Q4H PRN (Reason: Nausea And Vomiting) Qty: 15 0RF Continued levetiracetam 1,000 mg tablet 1,000 mg PO Q12H tizanidine 4 mg tablet 4 mg PO QID PRN (Reason: muscle spasticity) promethazine 25 mg suppository 25 mg RECTAL BID PRN (Reason: nausea and vomiting) Qty: 12 0RF Changed tamsulosin [Flomax] 0.4 mg capsule 0.4 mg PO DAILY PRN (Reason: kidney stone) Qty: 10 0RF Discontinued promethazine 12.5 mg tablet 6.25 mg PO TID PRN (Reason: nausea) Qty: 3 0RF Rx Instructions: 3 doses during day; last dose no later than 4 hr before bedtime Date of admission: 05/26/25 13:39 Primary Care Provider: Madhu Tilley Admitting Provider: Barbara Shah Attending physician on admission: Nguyen Flores Condition: Stable Quality VTE Prophylaxis VTE prophylaxis: mechanical ordered Hospitalist MIPS Heart Failure (Exclusion) Patient has history of Heart Transplant or Left Ventricular Assistive Device?: No IF YES, STOP HERE Heart Failure (Qualifier) Patient has current or prior documentation of LVEF less than or equal to 40%, or mod/servere depressed LVSF?: No IF NO, STOP HERE
== END 2025-05-27 12:45 | disposition home or self-care (01) | DRG 690 ==
LOC: ANHED 05-24 02:51 → ANH3MEDSUR 05-24 04:52
PROVIDERS: Urology; Admitting Provider General Practice; Emergency Provider Student in an Organized Health Care Education/Training Program; PCP Internal Medicine; Visit Provider Nurse Practitioner Acute Care
PROC: 0TC68ZZ Extirpation of Matter from Right Ureter, Via Natural or Artificial Opening Endoscopic (ICD-10-PCS; CPT 52352; principal; 2025-05-24 17:15)
DX: N13.6 Pyonephrosis (principal); R11.2 Nausea with vomiting, unspecified; G40.909 Epilepsy, unspecified, not intractable, without status epilepticus; I10 Essential (primary) hypertension; R00.0 Tachycardia, unspecified; K82.9 Disease of gallbladder, unspecified; B96.1 Klebsiella pneumoniae [K. pneumoniae] as the cause of diseases classified elsewhere; B96.89 Other specified bacterial agents as the cause of diseases classified elsewhere; M19.90 Unspecified osteoarthritis, unspecified site; Z87.442 Personal history of urinary calculi; Z79.891 Long term (current) use of opiate analgesic; Z90.49 Acquired absence of other specified parts of digestive tract
CPT/HCPCS: 36415; 74018; 74176; 74420; 80053; 81001; 82365; 83690; 84145; 85025; 85610; 85652; 85730; 86140; 87086; 88300; 96365; 96366; 96372; 99285; A4248; A9270; C1769; G0378; J0696; J1100; J1171; J1200; J1650; J2003; J2185; J2250; J2405; J2550; J2704; J3010; J7030; J7120; Q9966